=== PATIENT | female | born 1955 | race African-American/Black ===

== ENCOUNTER 2018-10-13 23:48 | Emergency (ER) | payer MEDICAID, SELFPAY ==
[2018-10-13 23:48] VITALS: BP 158/135; PULSE 82; RESP 16; TEMP 36.7; O2SAT 93; BMI 51.2
--- NOTE | 2018-10-14 00:23 | ED.VISSUMM ---
- ER Visit Summary Date of Service: 10/14/18 Chief Complaint: Mild bilateral feet swelling History of Present Illness: The patient is a 62 F history of hypertension on blood pressure medication. States she has had mild swelling in both feet for approximately a week. No falls or trauma. No prior history other than she is supposed to be wearing compressive lower extremity stockings which she states she only wears occasionally. She denies any chest pain or shortness of breath. Physical Examination: Well-appearing older female. Vital signs are stable. Her initial blood pressure is 150/35 however when I am in the room her pressure is 145/98. Pulse ox 93% on room air no signs of hypoxia. HEENT exam unremarkable. Neck nontender no JVD. Lungs clear to auscultation bilaterally. Heart regular rate and rhythm rate about 80 no murmur. Abdomen obese but soft nontender. Normal bowel sounds no peritoneal signs. Patient is moving all 4 extremities. Neurovascular intact. She has trace minimal edema both feet. Dorsi and plantar flexion intact. Normal motor strength both upper and lower extremities. Back nontender. Neurologically she is awake alert with no focal motor deficits. Test Results: BMP shows renal insufficiency with a BUN of 24 creatinine 2.08. I do not have any old labs available for comparison. I did go over this with the patient and family and informed her she needs follow-up with her primary care physician and have her renal function rechecked. Emergency Department Course and Treatment: Patient's exam is unremarkable other than minimal trace edema to both feet. P exam she is doing well at 01 34. A states she has trouble walking at home due to the swelling in her feet and we will see if a postop shoe will help her. Treatment Plan: Continue her compression stockings. Follow-up with her primary care physician Dr. Muhammad for repeat evaluation of her renal function. Disposition: Discharge Impression: Bilateral feet edema Renal insufficiency with a creatinine of 2.08 History of chronic hypertension This note was generated with [employer] dictation software. It may contain incorrect words, spelling, and punctuation that were not noted in review of the chart prior to signing ED Disposition - Plan for ED Patient: Referrals: Atif Muhammad MD [Primary Care Provider] -
[2018-10-14 00:43] LABS: Anion Gap 6 (5-15); BUN 24 mg/dL (7-18); BUN/Creat Ratio 11.5 RATIO (10-20); Calcium,Total 9.3 mg/dL (8.5-10.1); Chloride 103 mmol/L (98-107); Creatinine, Serum 2.08 mg/dL (0.55-1.02); EST Glomerular Filtration Rate 26 mL/min (>60); Est Glom Filt Rate - Afr Amer 31 mL/min (>60); Estimated Creatinine Clearance 27.27 ml/min; Glucose 99 mg/dL (74-106); Potassium 3.8 mmol/L (3.5-5.1); Sodium Level 138 mmol/L (136-145)
--- NOTE | 2018-10-14 01:39 | ED.DEP ---
ED Disposition - Plan for ED Patient: Disposition: Home or Assisted Living Referrals: Atif Muhammad MD [Primary Care Provider] - As soon as possible Additional Instructions: The swelling in your feet may be caused by venous insufficiency therefore you need to use her compression stockings. It may also be caused by renal insufficiency whereby your kidney function is not normal. She will need to have this rechecked and follow-up with Dr. Muhammad for that.
[2018-10-14 02:01] VITALS: BP 148/100; PULSE 90; RESP 16; O2SAT 94
== END 2018-10-14 02:02 | disposition home or self-care (01) ==
PROVIDERS: Emergency Provider Emergency Medicine; Family Provider Family Medicine; PCP Family Medicine
DX: R60.0 Localized edema (principal); N28.9 Disorder of kidney and ureter, unspecified; I10 Essential (primary) hypertension; Z79.899 Other long term (current) drug therapy; Z87.891 Personal history of nicotine dependence
CPT/HCPCS: 80048; 99285; A4216

== ENCOUNTER → 2018-10-25 13:52 | Outpatient (CLI) | payer MEDICAID, SELFPAY ==
[2018-10-16 10:03] VITALS: BMI 51.2
--- NOTE | 2018-10-25 13:54 | ART_ITS ---
Reason For Study: Intermittent Claudication Procedure A bilateral lower extremity continuous wave Doppler with analog waveform analysis and ankle brachial indexes. Left Segmental Pressures Left brachial= 166mmHg. Left posterior tibial artery = 168mmHg. Left dorsalis pedis artery = 160mmHg. Left digit = 100 mmHg. Right Segmental Pressures Right brachial= 154mmHg. Right posterior tibial artery = 171mmHg. Right dorsalis pedis artery = 162mmHg. Right digit = 148 mmHg. Indices The right ankle brachial index by the posterior tibial artery is 1.03. The right ankle brachial index by the dorsalis pedis is 0.98. The right digital-brachial index is 0.89. The left ankle brachial index by the posterior tibial artery is 1.01. The left ankle brachial index by the dorsalis pedis is 0.96. The left digital-brachial index is 0.60. Interpretation Summary 1. Bilateral no significant occlussive disease at rest with MARY 1.03/1.01. Ordering Physician: Jd Mariano Referring Physician: Jd Mariano Performed By: Zoya Santiago RDCS/RVT
== END ==
PROVIDERS: Family Provider Internal Medicine; PCP Internal Medicine; Referring Provider Nurse Practitioner Family; Visit Provider Nurse Practitioner Family
DX: I73.9 Peripheral vascular disease, unspecified (principal)
CPT/HCPCS: 93922; A4216; J2785

== ENCOUNTER → 2018-11-01 09:41 | Outpatient (CLI) | payer MEDICAID, SELFPAY ==
[2018-10-30 17:20] VITALS: BMI 51.2
--- NOTE | 2018-11-01 10:04 | EKG12_ITS ---
Test Reason : HYPERTENSON Blood Pressure : / mmHG Vent. Rate : 069 BPM Atrial Rate : 069 BPM P-R Int : 134 ms QRS Dur : 118 ms QT Int : 426 ms P-R-T Axes : 055 -47 012 degrees QTc Int : 456 ms Normal sinus rhythm Possible Left atrial enlargement Left axis deviation Non-specific intra-ventricular conduction delay Abnormal ECG Confirmed by JJ ZIEGLER, DEISY ([id number]), metropolitan editor LEO PAUL ([id number]) on 11/04/2018 9:25:28 AM Referred By: Harmony Velarde Confirmed By:DEISY GARDNER MD
[2018-11-01 11:10] LABS: Absolute Lymphocyte Count 1.62 X10^3/ul (0.83-4.51); Absolute Neutrophil Count 6.7 X10^3/uL (2.0-7.7); Basophil# 0.01 X10^3/uL; Basophil% 0.1 % (0-1); Eosinophil# 0.46 X10^3/uL; Eosinophils% 4.9 % (0-5); Hematocrit 36.6 % (37-47); Hemoglobin 11.3 g/dl (12.0-15.0); Lymphocyte # 1.62 X10^3/ul (4.0); Lymphocyte % 17.3 % (19-41); Mean Corp Hgb Conc 30.9 g/gl (32-36); Mean Corpuscular Hgb 27.9 pg (27.0-32.0); Mean Corpuscular Volume 90.4 fL (81-99); Mean Platelet Vol. 14.1 fl (6.2-12.0); Monocyte# 0.52 X10^3/uL; Monocyte% 5.5 % (0-10); Neutrophil # 6.74 X10^3/uL (2.7-7.7); Platelet Count 162 K/mm3 (150-450); RBC Distribution Width CV 14.7 % (11.6-14.6); RBC Distribution Width SD 48.2 fl (35.1-43.9); Red Blood Count 4.05 M/mm3 (4.2-5.4); White Blood Count 9.4 K/mm3 (4.4-11.0)
[2018-11-01 11:13] LABS: POSITIVE COUNT NO; POSITIVE DIFFERENTIAL NO; POSITIVE MORPHOLOGY NO
[2018-11-01 11:28] LABS: ALB/GLOB Ratio 0.8 RATIO (0.9-2.4); AST(SGOT) 15 U/L (15-37); Alanine Aminotransfer ALT/SGPT 14 U/L (13-56); Albumin, Serum 3.3 g/dL (3.2-5.0); Alkaline Phosphatase 95 U/L (45-117); Anion Gap 8 (5-15); BUN 43 mg/dL (7-18); BUN/Creat Ratio 21.7 RATIO (10-20); Calcium,Total 8.9 mg/dL (8.5-10.1); Chloride 102 mmol/L (98-107); Creatinine, Serum 1.98 mg/dL (0.55-1.02); EST Glomerular Filtration Rate 27 mL/min (>60); Est Glom Filt Rate - Afr Amer 33 mL/min (>60); Globulin 4.4 g/dL (2.2-4.2); Glucose 103 mg/dL (74-106); Potassium 3.1 mmol/L (3.5-5.1); Protein, Total 7.7 g/dL (6.4-8.2); Sodium Level 139 mmol/L (136-145)
[2018-11-01 11:45] LABS: Hemoglobin A1c 6.6 % (4.2-6.3)
== END ==
PROVIDERS: Family Provider Internal Medicine; PCP Internal Medicine; Referring Provider Internal Medicine; Visit Provider Internal Medicine
DX: I10 Essential (primary) hypertension (principal); R73.03 Prediabetes
CPT/HCPCS: 36415; 80053; 83036; 85025; 93005

== ENCOUNTER → 2018-11-04 08:58 | Outpatient (CLI) | payer MEDICAID, SELFPAY ==
[2018-10-30 17:20] VITALS: BMI 51.2
[2018-11-04 10:24] LABS: Cholesterol 161 mg/dL (200); High Density Lipoprotein 48 mg/dL; Triglycerides 100 mg/dL; Very Low Density Lipoprotein 20 mg/dL (5-40)
== END ==
PROVIDERS: Family Provider Internal Medicine; PCP Internal Medicine; Referring Provider Internal Medicine; Visit Provider Internal Medicine
DX: I10 Essential (primary) hypertension (principal)
CPT/HCPCS: 36415; 80061

== ENCOUNTER → 2018-12-03 | Outpatient (CLI) | payer MEDICAID, SELFPAY ==
[2018-12-03 09:44] VITALS: BMI 50.3
[2018-12-03 13:04] LABS: Anion Gap 9 (5-15); BUN 29 mg/dL (7-18); BUN/Creat Ratio 16.2 RATIO (10-20); Calcium,Total 9.1 mg/dL (8.5-10.1); Chloride 103 mmol/L (98-107); Creatinine, Serum 1.79 mg/dL (0.55-1.02); EST Glomerular Filtration Rate 30 mL/min (>60); Est Glom Filt Rate - Afr Amer 37 mL/min (>60); Glucose 103 mg/dL (74-106); Potassium 3.8 mmol/L (3.5-5.1); Sodium Level 141 mmol/L (136-145)
[2018-12-04 12:47] LABS: Microalbumin:Creatinine Ratio 107.2 mg/g CRE (<30 mg/g CRE)
== END | disposition home or self-care (01) ==
LOC: BIMLAB 10:09
PROVIDERS: Family Provider Internal Medicine; PCP Internal Medicine; Visit Provider Internal Medicine
DX: I10 Essential (primary) hypertension (principal); E11.9 Type 2 diabetes mellitus without complications
CPT/HCPCS: 36415; 80048; 82043; 82570

== ENCOUNTER → 2018-12-12 | Outpatient (CLI) | payer MEDICAID, SELFPAY ==
[2018-12-03 09:44] VITALS: BMI 50.3
== END | disposition home or self-care (01) ==
LOC: SL 12-13 07:39
PROVIDERS: Family Provider Internal Medicine; PCP Internal Medicine; Referring Provider Internal Medicine; Visit Provider Internal Medicine
DX: G47.30 Sleep apnea, unspecified (principal)
CPT/HCPCS: 98960; G0463

== ENCOUNTER → 2019-04-07 20:00 | Outpatient (CLI) | payer MEDICAID, SELFPAY ==
[2019-02-26 07:48] VITALS: BMI 51.8
== END ==
PROVIDERS: Family Provider Internal Medicine; PCP Internal Medicine; Referring Provider Internal Medicine Critical Care Medicine; Visit Provider Internal Medicine Critical Care Medicine
DX: G47.33 Obstructive sleep apnea (adult) (pediatric) (principal)
CPT/HCPCS: 95811

== ENCOUNTER → 2019-04-28 11:50 | Outpatient (CLI) | payer MEDICAID, SELFPAY ==
[2019-04-25 14:56] VITALS: BMI 51.8
[2019-04-28 12:17] LABS: Absolute Lymphocyte Count 1.69 X10^3/uL (0.83-4.51); Absolute Neutrophil Count 5.9 X10^3/uL (2.0-7.7); Basophil# 0.03 X10^3/uL; Basophil% 0.3 % (0-1); Eosinophil# 0.42 X10^3/uL; Eosinophils% 4.7 % (0-5); Hematocrit 39.5 % (37-47); Hemoglobin 12.1 g/dL (12.0-15.0); Lymphocyte # 1.69 X10^3/ul (4.0); Lymphocyte % 18.9 % (19-41); Mean Corp Hgb Conc 30.6 g/dL (32-36); Mean Corpuscular Hgb 28.7 pg (27.0-32.0); Mean Corpuscular Volume 93.6 fL (81-99); Mean Platelet Vol. 13.8 fl (6.2-12.0); Monocyte# 0.84 X10^3/uL; Monocyte% 9.4 % (0-10); NRBC Flagged by Analyzer 0 % (0-5); Neutrophil # 5.93 X10^3/uL (2.7-7.7); Neutrophil % 66.3 % (47-70); POSITIVE MORPHOLOGY YES; Platelet Count 171 K/mm3 (150-450); RBC Distribution Width CV 14.1 % (11.6-14.6); Red Blood Count 4.22 M/mm3 (4.2-5.4)
[2019-04-28 12:18] LABS: Differential Indicated SCAN CRITERIA MET
[2019-04-28 12:41] LABS: Anion Gap 6 (5-15); BUN 29 mg/dL (7-18); BUN/Creat Ratio 18.6 RATIO (10-20); Calcium,Total 9.7 mg/dL (8.5-10.1); Chloride 102 mmol/L (98-107); Creatinine, Serum 1.56 mg/dL (0.55-1.02); EST Glomerular Filtration Rate 36 mL/min (>60); Est Glom Filt Rate - Afr Amer 43 mL/min (>60); Glucose 91 mg/dL (74-106); Potassium 3.7 mmol/L (3.5-5.1); Sodium Level 140 mmol/L (136-145)
[2019-04-28 12:50] LABS: BNP,B-Type NATRIURETIC PEPTIDE 26.3 pg/mL (0-100)
[2019-05-01 05:06] LABS: Alternaria alternata <0.10 kU/L (Class 0); Bermuda Grass <0.10 kU/L (Class 0); Bluegrass, Kentucky <0.10 kU/L (Class 0); Cat Hair/Dander, Standard <0.10 kU/L (Class 0); D pteronyssinus 0.28 kU/L (Class 0/I); Dog Epithelia <0.10 kU/L (Class 0); Elm, American White <0.10 kU/L (Class 0); Oak, White <0.10 kU/L (Class 0); Plantain, English <0.10 kU/L (Class 0); Ragweed, Short/Common <0.10 kU/L (Class 0)
[2019-05-01 20:07] LABS: Aspirgillus flavus Negative (Neg:<1:1); Aspirgillus fumigatus Negative (Neg:<1:1); Aspirgillus niger Negative (Neg:<1:1)
[2019-05-02 12:46] LABS: Immunoglobulin E 81 IU/mL (6-495)
[2019-05-02 13:12] LABS: Mouse Urine <0.10 kU/L (Class 0)
== END ==
PROVIDERS: Family Provider Internal Medicine; PCP Internal Medicine; Referring Provider Nurse Practitioner Acute Care; Visit Provider Nurse Practitioner Acute Care
DX: R06.2 Wheezing (principal)
CPT/HCPCS: 36415; 80048; 82785; 83880; 85025; 86003; 86606

== ENCOUNTER → 2019-05-13 09:40 | Outpatient (CLI) | payer MEDICAID, SELFPAY ==
[2019-02-26 07:48] VITALS: BMI 51.8
[2019-04-30 14:12] VITALS: BMI 51.8
--- NOTE | 2019-05-13 13:57 | PFTCOMP ---
COMPLETE PULMONARY FUNCTION TEST INTERPRETATION Brief HPI: Patient is a 63 year old -[place] female, currently under the care of myself, who presents to [facility] for complete pulmonary function tests secondary to diagnosis of dyspnea. Respiratory therapist reports good effort and reproducible results. Interpretation: Forced expiration spirometry shows a moderate large airways obstructive ventilatory defect with an FEV1 of 77% predicted. There is a significant bronchodilator response in FEV1 by strict ATS criteria. Spirograms are of good quality and plateau slowly, indicating slowly emptying areas of the lungs. The respiratory flow volume loop shows decreased expiratory flow rates at all lung volumes consistent with airway obstruction. Lung volumes by body plethysmography show a normal total lung capacity at 5.05 L, 92% predicted. FRC and RV are elevated out of proportion. Lung volume measurements are consistent with air-trapping. Diffusion capacity by carbon monoxide is at the lower limit of normal at 76% predicted. The airway resistance is elevated. No previous pulmonary function tests were available for review. Impression: Fully reversible moderate large airways obstructive ventilatory defect resulting in air trapping. Cannot exclude an component of concomitant COPD
== END ==
PROVIDERS: Family Provider Internal Medicine; PCP Internal Medicine; Referring Provider Internal Medicine Critical Care Medicine; Visit Provider Internal Medicine Critical Care Medicine
DX: R06.09 Other forms of dyspnea (principal)
CPT/HCPCS: 94060; 94726; 94729

== ENCOUNTER 2019-07-10 14:28 | Outpatient (RCR) | payer MEDICAID, SELFPAY ==
[2019-06-06 13:01] VITALS: BMI 52.6
== END 2019-07-10 23:59 | disposition home or self-care (01) ==
LOC: DC 14:28
PROVIDERS: Family Provider Internal Medicine; PCP Internal Medicine; Visit Provider Internal Medicine
DX: Z71.3 Dietary counseling and surveillance (principal); E11.9 Type 2 diabetes mellitus without complications; E66.01 Morbid (severe) obesity due to excess calories; Z68.43 Body mass index [BMI] 50.0-59.9, adult
CPT/HCPCS: G0108

== ENCOUNTER → 2019-11-19 13:07 | Outpatient (CLI) | payer MEDICAID, SELFPAY ==
[2019-11-19 10:33] VITALS: BMI 52.6
[2019-11-19 13:39] LABS: Absolute Lymphocyte Count 1.19 X10^3/uL (0.83-4.51); Absolute Neutrophil Count 5.5 X10^3/uL (2.0-7.7); Basophil# 0.03 X10^3/uL; Basophil% 0.4 % (0-1); Eosinophil# 0.53 X10^3/uL; Eosinophils% 6.7 % (0-5); Hematocrit 38.5 % (37-47); Hemoglobin 11.9 g/dL (12.0-15.0); Lymphocyte # 1.19 X10^3/ul (4.0); Mean Corp Hgb Conc 30.9 g/dL (32-36); Mean Corpuscular Hgb 27.8 pg (27.0-32.0); Mean Platelet Vol. 13.9 fl (6.2-12.0); Monocyte# 0.67 X10^3/uL; Monocyte% 8.4 % (0-10); NRBC Flagged by Analyzer 0 % (0-5); Neutrophil # 5.48 X10^3/uL (2.7-7.7); Neutrophil % 69.1 % (47-70); Platelet Count 158 K/mm3 (150-450); RBC Distribution Width CV 14.7 % (11.6-14.6); RBC Distribution Width SD 48.7 fl (35.1-43.9); Red Blood Count 4.28 M/mm3 (4.2-5.4); White Blood Count 7.9 K/mm3 (4.4-11.0)
[2019-11-19 13:51] LABS: ALB/GLOB Ratio 0.7 RATIO (0.9-2.4); AST(SGOT) 15 U/L (15-37); Alanine Aminotransfer ALT/SGPT 17 U/L (13-56); Albumin, Serum 3.6 g/dL (3.2-5.0); Alkaline Phosphatase 84 U/L (45-117); Anion Gap 6 (5-15); BUN 25 mg/dL (7-18); BUN/Creat Ratio 15.6 RATIO (10-20); Calcium,Total 9.7 mg/dL (8.5-10.1); Chloride 101 mmol/L (98-107); EST Glomerular Filtration Rate 35 mL/min (>60); Est Glom Filt Rate - Afr Amer 42 mL/min (>60); Globulin 5.1 g/dL (2.2-4.2); Glucose 115 mg/dL (74-106); Potassium 3.3 mmol/L (3.5-5.1); Protein, Total 8.7 g/dL (6.4-8.2); Sodium Level 136 mmol/L (136-145)
== END ==
PROVIDERS: Nurse Practitioner Family; PCP Internal Medicine; Referring Provider Internal Medicine; Visit Provider Internal Medicine
DX: R60.0 Localized edema (principal); I10 Essential (primary) hypertension; E11.9 Type 2 diabetes mellitus without complications
CPT/HCPCS: 80053; 85025

== ENCOUNTER → 2020-03-04 14:49 | Outpatient (CLI) | payer MEDICAID, SELFPAY ==
[2020-02-12 13:08] VITALS: BMI 52.6
--- NOTE | 2020-03-04 14:50 | US_ITS ---
STUDY: SUPERFICIAL ULTRASOUND - REASON FOR EXAM: Female, 64 years old. LT GROIN PAIN AND SWELLING - CHRONIC TECHNIQUE: A superficial ultrasound was performed with real-time and static mhuammad-scale imaging. COMPARISON: None. FINDINGS: There is a 1.6 x 1.3 x 1.4 cm well-circumscribed predominantly hypoechoic round focus with what appears to be an echogenic mildly vascular hilum consistent with an enlarged lymph node. The enlarged lymph node appears to have lost its reniform shape. There are 2 additional prominent lymph nodes. US/Ext Non Vasc Limited/Soft Tiss IMPRESSION: Mildly enlarged inguinal lymph node measuring up to 1.6 x 1.3 x 1.4 cm associated with 2 additional prominent lymph nodes which all may be reactive although cannot entirely exclude a neoplastic process. Electronically Signed: Nita Arndt MD at 15:36 EDT Tel , Service support ,
== END ==
PROVIDERS: PCP Internal Medicine; Referring Provider Nurse Practitioner Family; Visit Provider Nurse Practitioner Family
DX: R10.32 Left lower quadrant pain (principal)
CPT/HCPCS: 76882

== ENCOUNTER → 2020-03-16 15:55 | Outpatient (CLI) | payer MEDICAID, SELFPAY ==
[2020-02-12 13:08] VITALS: BMI 52.6
--- NOTE | 2020-03-16 15:55 | CT_ITS ---
STUDY: CT PELVIS WITHOUT CONTRAST REASON FOR EXAM: Female, 64 years old. LT GROIN SWELLING, LT LOWER EXTREMITY EDEMA FOR MONTHS, PREV TUBAL LIGATION RADIATION DOSAGE (If Supplied By Facility): CTDIvol = ( 28.20 ) mGy, DLP = ( 1505.4 ) mGycm TECHNIQUE: Transaxial imaging of the pelvis was performed with oral contrast, and without intravenous administration of contrast material. Individualized dose optimization techniques were used for this CT. COMPARISON: None. FINDINGS: Uterus is enlarged for stated age and deviated towards the right depressing the dome of the bladder. Postsurgical change status post bilateral tubal ligation Normal visualized small intestine. Normal visualized colon. There is no pelvic fluid. There is no pelvic mass lesion or lymphadenopathy. Normal visualized pelvic arteries. There are multiple enlarged left inguinal nodes the largest measuring approximately 3.3 x 2.15 cm. Normal osseous structures. Incidental finding of a mass in left lower quadrant demonstrating rim calcification not visualized in its entirety measuring approximately 7.[address]/Pelvis without IV Contrast IMPRESSION: Left inguinal adenopathy of uncertain etiology. Incidental finding of rim calcified mass in left lower quadrant of uncertain etiology. Recommend dedicated CT of the abdomen and pelvis for further evaluation Electronically Signed: Atif Hancock MD at 20:15 EDT , Service support ,
== END ==
PROVIDERS: PCP Internal Medicine; Referring Provider Internal Medicine; Visit Provider Internal Medicine
DX: R19.09 Other intra-abdominal and pelvic swelling, mass and lump (principal); M79.89 Other specified soft tissue disorders
CPT/HCPCS: 72192

== ENCOUNTER → 2020-03-18 12:58 | Outpatient (CLI) | payer MEDICAID, SELFPAY ==
[2020-02-12 13:08] VITALS: BMI 52.6
[2020-03-18 13:50] LABS: Protein, Urine (Random) 43.4 mg/dL (<11.9); Protein:Creat Ratio 342 mg/g CRE (0-200)
[2020-03-18 13:57] LABS: Anion Gap 6 (5-15); BUN 22 mg/dL (7-18); BUN/Creat Ratio 15.1 RATIO (10-20); Calcium,Total 9.7 mg/dL (8.5-10.1); Chloride 107 mmol/L (98-107); Creatinine, Serum 1.46 mg/dL (0.55-1.02); EST Glomerular Filtration Rate 38 mL/min (>60); Est Glom Filt Rate - Afr Amer 46 mL/min (>60); Glucose 112 mg/dL (74-106); Potassium 3.6 mmol/L (3.5-5.1); Sodium Level 140 mmol/L (136-145)
[2020-03-24 12:07] LABS: Complement C3 187 mg/dL (82-167); PROEL- A/G Ratio 0.8 (0.7-1.7); PROEL- Albumin 3.4 g/dL (2.9-4.4); PROEL- Alpha-1 Globulin 0.4 g/dL (0.0-0.4); PROEL- Alpha-2 Globulin 0.7 g/dL (0.4-1.0); PROEL- Beta Globulin 1.2 g/dL (0.7-1.3); PROEL- Gamma Globulin 1.8 g/dL (0.4-1.8); PROEL- Globulin, Total 4.1 g/dL (2.2-3.9); PROEL- TOTAL PROTEIN 7.5 g/dL (6.0-8.5)
[2020-10-14 12:52] LABS: Aldosterone, Serum 22.1 ng/dL (0.0-30.0)
[2020-10-14 12:53] LABS: Renin, Plasma 0.527 ng/mL/hr (0.167-5.380)
== END ==
PROVIDERS: PCP Internal Medicine; Referring Provider Internal Medicine Nephrology; Visit Provider Internal Medicine Nephrology
DX: I12.9 Hypertensive chronic kidney disease with stage 1 through stage 4 chronic kidney disease, or unspecified chronic kidney disease (principal); N18.3 Chronic kidney disease, stage 3 (moderate)
CPT/HCPCS: 36415; 80048; 82088; 82570; 84156; 84165; 84244; 86160

== ENCOUNTER → 2020-03-29 15:29 | Outpatient (CLI) | payer MEDICAID, SELFPAY ==
[2020-02-12 13:08] VITALS: BMI 52.6
--- NOTE | 2020-03-29 15:29 | CT_ITS ---
STUDY: CT ABDOMEN AND PELVIS WITHOUT CONTRAST REASON FOR EXAM: Female, 64 years old. PT STATED ABNORMAL PELVIC CT F/U RADIATION DOSAGE (If Supplied By Facility): CTDIvol = ( 17.58 ) mGy, DLP = ( 981.25 ) mGycm TECHNIQUE: Transaxial images were obtained from the dome of the diaphragm to the symphysis pubis without oral contrast, and without intravenous contrast. Sagittal and coronal images were reconstructed. Individualized dose optimization techniques were used for this CT. COMPARISON: None. FINDINGS: The visualized lung bases are unremarkable. The visualized portions of the heart are within normal limits. Para-aortic adenopathy along the descending thoracic aorta. There is a diffuse contour abnormality of the liver consistent with cirrhotic changes. Cholelithiasis with wall thickening of the gallbladder and extrahepatic biliary system. Normal spleen. Normal pancreas. There is a 7.1 x 8.0 cm mass with calcified rim within the left mid abdominal mesentery. [place] of multiple left upper quadrant mesenteric nodules is also noted. Normal bilateral adrenal glands. Bilateral renal cysts and hyperdense cysts. Hiatal hernia. Normal small intestine. Normal colon. The appendix is not visualized. Calcified abdominal aorta. Normal inferior vena cava. There is adenopathy in the retroperitoneum. There are omental nodule lesions up to 3.4 cm likely related to metastasis. Mild gastrohepatic adenopathy. Normal urinary bladder. Bilateral inguinal adenopathy, left more than right. Bilateral tubal ligation clips. Questionable left adnexal 5.3 x 4.2 cm mass versus a prominent ovary. Left iliac adenopathy cannot be excluded. Evaluation is limited without contrast. Normal abdominal wall. Normal osseous structures. CT/Abdomen/Pelvis without Cont IMPRESSION: Hiatal hernia. Bilateral renal cystic lesions. There is para-aortic, gastrohepatic, mesenteric, and retroperitoneal adenopathy. There is also left inguinal and possibly left iliac adenopathy. Omental nodules are noted. Left adnexal lesion cannot be excluded. Large left mesenteric mass is noted with a calcified rim. Cholelithiasis. Possible gallbladder wall thickening. Electronically Signed: Coleman Bañuelos DO at 23:49 EDT Tel [phone], Service support ,
== END ==
PROVIDERS: PCP Internal Medicine; Referring Provider Internal Medicine; Visit Provider Internal Medicine
DX: R93.5 Abnormal findings on diagnostic imaging of other abdominal regions, including retroperitoneum (principal); R19.04 Left lower quadrant abdominal swelling, mass and lump
CPT/HCPCS: 74176

== ENCOUNTER 2020-03-30 10:30 | Outpatient (RCR) | payer MEDICAID, SELFPAY ==
[2020-02-12 13:08] VITALS: BMI 52.6
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
--- NOTE | 2020-03-30 11:18 | HP.PTREVAL_ITS ---
Dr. Harmony Velarde MD, It has been my pleasure to treat QUENTIN ALEXANDRE over the last 6 visits for L shoulder pain. Please see the progress note below for an update on the physical therapy plan of care! Subjective: Sometimes the shoulder is nagging but today the shoulder is a 3- 4/10. Her L shoulder tightens up when it starts to rain. She feels that PT is helping cause she can move her arm better after PT. She can not lay on her L shoulder. She feels better after she does her exercises. She has a possible mass that she is having CatScans for it. Objective/Function: Improved ROM.... L shoulder AROM: L shoulder flex 120. L shoulder abd 110. L shoulder ER 40. L shoulder IR FULL. L shoulder MMT: Flex 4-/5, abd 3+/5, IR/ER 4-/5 Plan Plan: Continue 2X/ week for 4 weeks for L shoulder PROM, AAROM, AROM, postural and scapular strength, RC strength with HEP and modalities as needed. Goals Goal 1:: I HEP Goal Time Frame: 4-6 Weeks Goal Progress: Goal Met Goal 2:: Increase L shoulder AROM to egual that of the Right (L shoulder AROM: flex approx 120 degrees, abd approx 80 degrees, IR approx L5, ER approx 40 degrees. R shoulder AROM flexion approx 170 degrees, abd approx 150 degrees, IR to L1, Er aprrox 50 degrees) Goal Time Frame: 4-6 Weeks Goal Progress: Progressing Goal 3:: Increase L shoulder strength by 1/2 muscle grade ( at time of eval L shld MMT: Flex 4-/5, abd 3+/5, IR/ER 4-/5) Goal Time Frame: 4-6 Weeks Goal Progress: Progressing Goal 4:: Be able to lay on the L shoulder and reach across her body without having L shoulder sharp pain Goal Time Frame: 4-6 Weeks Anticipated Interventions Patient/Client Instruction: Educate patient on: Condition, Plan of Care For the Purpose of:: To decrease pain, To decrease swelling/inflammation, To increase ROM, To improve nutrient delivery to tissue, To improve muscle performance and motor function, To improve ability to perform ADL's, To increase tolerance to activity/condition/position, To improve performance and independence with ADL's, To decrease level of supervision to perform tasks, To improve ability of physical actions for home/community/work/leisure, To improve health of tissue, To increase flexibility/ROM Therapeutic Exercise to Include: Strength training, Postural training, Flexibilty training, Passive ROM, Active ROM, Scapular Strength/Stabilization For the Purpose of:: To decrease pain, To increase ROM, To improve nutrient delivery to tissue, To improve muscle performance and motor function, To improve ability to perform ADL's, To increase tolerance to activity/condition/position, To improve performance and independence with ADL's, To improve ability of physical actions for home/community/work/leisure, To improve health of tissue, To decrease soft tissue restriction, To increase flexibility/ROM Manual Therapy Techniques to Include: Passive ROM For the Purpose of:: To increase ROM Ultrasound (thermal/non thermal): Yes For the Purpose of:: To decrease pain, To decrease swelling/inflammation, To improve nutrient delivery to tissue Please do not hesitate to contact me at [phone] by phone or if you have questions or concerns regarding this new plan of care! Sincerely, Sanjana Catherine, MPT
--- NOTE | 2020-05-19 13:16 | HP.PT.NRP ---
QUENTIN ALEXANDRE was seen in my office for initial evaluation on 02/18/20. The following Plan of Care was established for this patient: Initial Frequency: 2x /Week Initial Duration: 6 Weeks Patient/Client Instruction: Educate patient on: Condition, Plan of Care For the Purpose of:: To decrease pain, To decrease swelling/inflammation, To increase ROM, To improve nutrient delivery to tissue, To improve muscle performance and motor function, To improve ability to perform ADL's, To increase tolerance to activity/condition/position, To improve performance and independence with ADL's, To decrease level of supervision to perform tasks, To improve ability of physical actions for home/community/work/leisure, To improve health of tissue, To increase flexibility/ROM Therapeutic Exercise to Include: Strength training, Postural training, Flexibilty training, Passive ROM, Active ROM, Scapular Strength/Stabilization For the Purpose of:: To decrease pain, To increase ROM, To improve nutrient delivery to tissue, To improve muscle performance and motor function, To improve ability to perform ADL's, To increase tolerance to activity/condition/position, To improve performance and independence with ADL's, To improve ability of physical actions for home/community/work/leisure, To improve health of tissue, To decrease soft tissue restriction, To increase flexibility/ROM Manual Therapy Techniques to Include: Passive ROM For the Purpose of:: To increase ROM Ultrasound (thermal/non thermal): Yes For the Purpose of:: To decrease pain, To decrease swelling/inflammation, To improve nutrient delivery to tissue This patient was last seen in our office 03/30/20. Pertinent comments regarding their Physical therapy will appear below: Pt has missed several appointments and never rescheduled. She will be discharged At this point I will be discontinuing this patient from physical therapy. I would be happy to see this patient again in the future if found appropriate by the physician. Thank you! Sanjana Catherine, MPT
== END 2020-03-30 19:00 | disposition home or self-care (01) ==
LOC: PT 10:30
PROVIDERS: PCP Internal Medicine; Referring Provider Internal Medicine; Visit Provider Internal Medicine
DX: M25.512 Pain in left shoulder (principal); M75.82 Other shoulder lesions, left shoulder
CPT/HCPCS: 97110; 97161; 97530

== ENCOUNTER → 2020-04-13 08:06 | Outpatient (CLI) | payer MEDICAID, SELFPAY ==
[2020-04-07 11:31] VITALS: BMI 53.7
[2020-04-13] VITALS (10 sets, daily range): BP systolic 148–189; BP diastolic 37–91; PULSE 71–75; RESP 18; TEMP 36.8–37; O2SAT 96–99; BMI 45.6
--- NOTE | 2020-04-13 | IMM_PTH ---
PATIENT: QUENTIN ALEXANDRE LOC: CT U#:[id number] AGE/SX: 69/F ROOM: RE04/13/[address]: Dr. David Corral MD : 1955 BED: DIS: SPEC #: [id number] RECD: 04/14/20 12:10 STATUS: VENKATA REQ #: [id number] [place]: 04/13/20 00:[address]: David Corral DEPT: IMMUNOHISTOCHEMISTRY RECD BY: Val Lerner ENTERED: 04/14/20 12:12 SP TYPE: IMMUNO OTHR DR: Dr. Harmony Velarde MD Tissues: Abdomen, NOS Procedures: RCC (add) MSH2 (add) MLH-1 (add) MSH6 (add) Anti-PMS2 (add) NAPSIN A (add) CA-125 (add) CEA (add) CK20 (add) CK5-6 (add) CK7 (add) CK8 (add) HEP PAR (add) KI-67 (add) P53 (add) FL (add) TTF1 (add) Pankeratin (add) P40 (add) ER (initial) PHYSICIAN & INSTITUTION [place] [id number] SPECIMEN INFORMATION: Tissue Source: Abdominal mass Clinical Info: Abdominal mass Specimen Number: [id number] CPT code: 68414, 70914 x19 METHODOLOGY: Deparaffinized sections of prefer/formalin-fixed tissue or PAP/DQ stained slides are incubated with monoclonal/polyclonal antibodies/oligonucleotide probes. Localization is made via biotin free immunoperoxidase method. Appropriate controls are performed and reacted as expected. Results on target cell population are indicated in the following table: RESULTS: ANTIBODY / CLONE RESULT ER (6F11) positive FL (1E2) negative AE1-3 (AE1/AE3/PCK26) positive CK7 (OV-TL12/30) positive CK8 (42ebfkS33) positive CK20 (KS20.8) negative TTF-1 (8G7G3/1) negative Napsin A (Rabbit Polyclonal) negative HepPar (OCh1E5) negative RCC (PN-15) positive, focal CK5-6 (D5 & 1684) positive P40 (BC28) negative CEA (11-7/TF-3HB-1) positive, focal CA125 (OC125) positive These tests were developed and their performance characteristics determined by [facility]. They may not have been cleared or approved by the U.S. Food and Drug Administration. The FDA has determined that such clearance or approval is not necessary. The above immunohistochemical/dualISH markers are ordered and reviewed by the Pathologist. INTERPRETATION: Abdominal mass, CT-guided core biopsy: Metastatic poorly differentiated non-small cell carcinoma, consistent with clinical impression of ovarian primary. SJ:rg 04/15/20 Case has been reviewed in consultation with Dr. Harp who concurs with the above diagnosis. IDC:AM ADDENDUM ADDENDUM ADDENDUM ADDENDUM ADDENDUM ADDENDUM ADDENDUM ADDENDUM ADDENDUM ADDENDUM ADDENDUM ADDENDUM ADDENDUM ADDENDUM 04/22/2020 09:45 ADDENDUM 04/22/2020 09:45 ADDENDUM 04/22/2020 09:45 ADDENDUM 04/22/2020 09:45 ADDENDUM 04/22/2020 09:45 ANTIBODY / CLONE RESULT Ki-67 (30-9) positive, moderate P53 (DO-7) positive MLH-1 (M1) positive MSH2 (25D12) positive MSH6 (44) positive PMS2 (AQK1677) positive Abdominal mass, CT-guided core biopsy: Result of Microsatellite Instability Study: Negative (no loss of mismatch protein; no microsatellite instability detected). SJ:polina 04/22/20
--- NOTE | 2020-04-13 | ASPIGT_PTH ---
PATIENT: QUENTIN ALEXANDRE LOC: [place] U#:[id number] AGE/SX: 69/F ROOM: RE04/13/[address]: Dr. David Corral MD : 1955 BED: DIS: SPEC #: [id number] RECD: 04/13/20 10:00 STATUS: VENKATA WEIRMaureen #: [id number] [place]: 04/13/20 00:[address]: David Corral DEPT: SURGICAL PATHOLOGY RECD BY: Chinedu Montana ENTERED: 04/13/20 10:14 SP TYPE: ASP RAD OTHR DR: Dr. Harmony Velarde MD Tissues: Abdominal wall, NOS Procedures: FNA Specimen Adequacy Special Stain Group II Surgery Specimen Level IV Imprint (control) HEADER OPERATION: CT-guided abdominal mass biopsy PRE-OP DIAGNOSIS: Abdominal mass TISSUE SUBMITTED: Abdominal mass 18 gauge x5 MICROSCOPIC DIAGNOSIS Abdominal mass, CT-guided core biopsy: Metastatic poorly differentiated non-small cell carcinoma, consistent with clinical impression of ovarian primary. See comment. BANDAR:polina 04/14/20 COMMENT The specimen is evaluated at the time of biopsy by Dr. Garvin. Immediate Evaluation = Malignant cells present derived from non-small cell carcinoma. Immunohistochemistry ([id number]) supports the above diagnosis. Correlation with clinical, radiologic findings and appropriate follow up are necessary. Case has been reviewed in consultation with Dr. Harp who concurs with the above diagnosis. IDC:AM MICROSCOPIC DESCRIPTION Slides are reviewed. GROSS DESCRIPTION Received in fixative is one container labeled with the patient's name and designated abdominal mass. The specimen consists of multiple irregular fragments of rich soft tissue that in aggregate measure 1.5 x 0.1 x 0.1 cm. The specimen is totally submitted in one cassette. Two touch imprints are prepared at the time of core biopsy. / BANDAR:polina 04/13/20 TC:0 CPT: 57316, 22812
[2020-04-13 08:29] LABS: Absolute Lymphocyte Count 0.86 X10^3/uL (0.83-4.51); Absolute Neutrophil Count 9.7 X10^3/uL (2.0-7.7); Basophil# 0.03 X10^3/uL; Basophil% 0.3 % (0-1); Eosinophil# 0.06 X10^3/uL; Eosinophils% 0.5 % (0-5); Hematocrit 39.3 % (37-47); Hemoglobin 12.3 g/dL (12.0-15.0); Lymphocyte # 0.86 X10^3/ul (4.0); Lymphocyte % 7.3 % (19-41); Mean Corp Hgb Conc 31.3 g/dL (32-36); Mean Corpuscular Hgb 28.7 pg (27.0-32.0); Mean Corpuscular Volume 91.6 fL (81-99); Mean Platelet Vol. 13.5 fl (6.2-12.0); Monocyte% 9.3 % (0-10); NRBC Flagged by Analyzer 0 % (0-5); Neutrophil # 9.74 X10^3/uL (2.7-7.7); Neutrophil % 82.2 % (47-70); POSITIVE MORPHOLOGY YES; Platelet Count 213 K/mm3 (150-450); RBC Distribution Width CV 14.2 % (11.6-14.6); RBC Distribution Width SD 47.6 fl (35.1-43.9); Red Blood Count 4.29 M/mm3 (4.2-5.4); White Blood Count 11.8 K/mm3 (4.4-11.0)
[2020-04-13 08:35] LABS: International Normalized Ratio 1.1; Partial Thromboplast Time 23.8 Seconds (24.1-36.2); Prothrombin Time (Protime)PT. 13.9 SECONDS (11.7-14.9)
[2020-04-13 08:44] LABS: ALB/GLOB Ratio 0.6 RATIO (0.9-2.4); AST(SGOT) 14 U/L (15-37); Alanine Aminotransfer ALT/SGPT 15 U/L (13-56); Albumin, Serum 3.4 g/dL (3.2-5.0); Alkaline Phosphatase 74 U/L (45-117); Anion Gap 5 (5-15); BUN 23 mg/dL (7-18); BUN/Creat Ratio 13.9 RATIO (10-20); Calcium,Total 10.1 mg/dL (8.5-10.1); Chloride 103 mmol/L (98-107); Creatinine, Serum 1.65 mg/dL (0.55-1.02); EST Glomerular Filtration Rate 33 mL/min (>60); Est Glom Filt Rate - Afr Amer 40 mL/min (>60); Globulin 5.5 g/dL (2.2-4.2); Glucose 142 mg/dL (74-106); LDH 227 U/L (84-246); Potassium 3.9 mmol/L (3.5-5.1); Protein, Total 8.9 g/dL (6.4-8.2); Sodium Level 137 mmol/L (136-145); Uric Acid 9.1 mg/dL (2.6-6.0)
--- NOTE | 2020-04-13 09:01 | CT_ITS ---
STUDY: CT CHEST WITH CONTRAST REASON FOR EXAM: Female, 64 years old. STAGING FOR POSSIBLE OVARIAN CA RADIATION DOSAGE (If Supplied By Facility): CTDIvol = ( 19.11 ) mGy, DLP = ( 681.43 ) mGycm TECHNIQUE: Transaxial imaging was performed following intravenous administration of IV 100ML ISOVUE 300. Multiplanar coronal and sagittal images were reformatted. Individualized dose optimization techniques were used for this CT. COMPARISON: Comparison is made with prior examination dated 11/09/2010. FINDINGS: Mild wedging is enlargement of the right lobe of the thyroid gland. The lungs are normal. There is no demonstrated pleural abnormality. There is mild cardiac enlargement. Small pericardial effusion along the right lateral aspect of the pericardium. Normal mediastinum. Normal hilar regions. Normal enhanced pulmonary arteries. Normal aorta arch and descending thoracic aorta. There are multi-level degenerative changes of the thoracic spine. There is a 2 cm x 1.7 cm right adrenal nodule. Small cyst in the upper pole of the left kidney. CT/Chest WITH Contrast IMPRESSION: 2 cm x 1.7 cm nodule in the right adrenal gland. Electronically Signed: Tyler Badillo, at 10:21 EDT , Service support ,
[2020-04-13] MEDS: 0.9% Saline Lock 10 ML Syringe IV (09:06)
[2020-04-13 09:09] LABS: Differential Indicated SCAN CRITERIA MET
[2020-04-13 09:11] LABS: Differential Comment SCANNED
--- NOTE | 2020-04-13 09:15 | CT_ITS ---
PROCEDURE: CT GUIDED biopsy of the anterior mesenteric mass. DATE: 04/13/2020 INDICATION: Female, 64 years old. Retroperitoneal and mesenteric masses. PHYSICIAN: Tyler Badillo M.D. RADIATION DOSAGE (If Supplied By Facility): CTDIvol = ( 15 ) mGy, DLP = ( 379.7. ) mGycm. Individualized dose optimization techniques were utilized. PROCEDURE: The risks, benefits, and alternatives to the procedure were explained to the patient. The specific risk of hemorrhage requiring further treatment or intervention was detailed and accepted. Follow-up instructions were discussed with the patient as well. Written informed consent was obtained. The patient was brought into the CT suite and placed in the supine position. . An appropriate entry site was identified. The overlying skin was prepped and draped in the usual sterile fashion. 1% lidocaine was administered subcutaneously for local anesthesia. Conscious sedation was performed. The patient received 2 mg of VERSED and 50 mcg of FENTANYL intravenously. Conscious sedation was started and 9:23 AM and terminated at 9:36 AM. The patient was independently monitored by the department nurse. Under CT guidance, a total of 5 passes were performed utilizing 18-gauge core biopsy needle. The specimens were then placed in the appropriate fluid and transported to the laboratory for analysis. Hemostasis was obtained. The patient tolerated the procedure well without immediate complications. CT/Biopsy/Inj or Needle Placement IMPRESSION: Successful CT guided biopsy of the anterior mesenteric mass, as described above. Electronically Signed: Tyler Badillo, at 10:06 EDT , Service support ,
[2020-04-13] MEDS: fentaNYL 100 MCG/2 ML Ampul IV (09:23)
[2020-04-13] MEDS: Midazolam 2 MG/2 ML Syringe IV (09:23)
== END ==
PROVIDERS: PCP Internal Medicine; Referring Provider Internal Medicine Medical Oncology; Visit Provider Internal Medicine Medical Oncology
DX: C79.89 Secondary malignant neoplasm of other specified sites (principal); C56.2 Malignant neoplasm of left ovary
CPT/HCPCS: 49180; 36415; 71260; 77012; 80053; 83615; 84550; 85025; 85610; 85730; 86304; 88172; 88305; 88313; 88341; 88342; J7040; Q9967

== ENCOUNTER 2020-04-14 13:11 | Emergency (ER) | payer MEDICAID, SELFPAY ==
[2020-04-13 08:41] VITALS: BMI 45.6
[2020-04-14 13:12] VITALS: BP 145/94; PULSE 95; RESP 16; TEMP 36.6; O2SAT 98; BMI 49.1
[2020-04-14] MEDS: Morphine 4 MG/ML Syringe IM (14:01)
--- NOTE | 2020-04-14 14:07 | RAD_ITS ---
STUDY: X-RAY CHEST REASON FOR EXAM: Female, 64 years old. ABDOMEN BIOPSY YESTERDAY. TODAY IS HAVING BACK SPASMS AND LEFT SHOULDER PAIN TECHNIQUE: Single AP portable view of the chest. COMPARISON: Comparison is made with prior study dated 07/06/2015. FINDINGS: Limited inspiratory effort. Mild increased markings at the lung bases more prominent on the left side suggestive of bibasilar atelectasis. There is mild cardiac enlargement. Normal mediastinum and nicole. Normal visualized pulmonary arteries. There is atherosclerotic tortuosity of the aortic arch and descending thoracic aorta. Normal visualized thoracic spine. Normal visualized ribs, clavicles, and shoulders. There is no demonstrated abnormality of the visualized soft tissue structures of the upper abdomen. RAD/Chest 1 View (Portable) IMPRESSION: Findings suggestive of bibasilar atelectasis more prominent on the left side. Electronically Signed: Tyler Badillo, at 14:31 EDT , Service support ,
--- NOTE | 2020-04-14 15:39 | ED.DCSUM_ITS ---
- ER Visit Summary Date of Service: 04/14/20 Chief Complaint: Back pain History of Present Illness: The patient is a 64 F who presents with back pain that became worse today. Patient had a biopsy performed yesterday on her abdomen for work-up of possible ovarian cancer. Patient denies any pain over the abdomen or biopsy site. Patient states her pain is over the left posterior thoracic area near her scapula. Patient states her pain is aching. Patient states her pain is worse with movement. Patient denies any trauma or injury. Patient denies any shortness of breath. Patient denies any cough. Physical Examination: Vital signs are stable. Patient is afebrile. Patient is in no acute distress. Oral mucosa is pink and moist. Neck is supple. Trachea is midline. There is no JVD. Heart was regular rate and rhythm. Lungs are clear and equal bilaterally. Abdomen is soft. Bowel sounds are normal. There is no tenderness. Cranial nerves II through XII are intact. There are no focal motor or sensory deficits noted. Musculoskeletal exam reveals reproducible tenderness over the left lower parascapular muscles. There is no bony crepitance or step-off. There is no deformity. There is some mild spasm of the parascapular muscles. Test Results: Portable chest x-ray was obtained. There is no acute process. This was interpreted by the radiologist and reviewed by myself. Emergency Department Course and Treatment: Patient was given injection of morphine. Patient was feeling better on reevaluation. Patient was instructed to use ice to the area. Patient was instructed to follow-up with her primary care physician in 5 to 7 days. Patient understood and was agreeable with the plan. All questions were answered. Disposition: Discharge home Impression: 1. Thoracic strain This note was generated with [employer] dictation software. It may contain incorrect words, spelling, and punctuation that were not noted in review of the chart prior to signing ED Disposition - Plan for ED Patient: Disposition: Home or Assisted Living Diagnosis: Thoracic myofascial strain Instructions: ED Spasm Back No Trauma Referrals: Harmony Velarde MD [Primary Care Provider] - 5-7 Days
== END 2020-04-14 16:30 | disposition home or self-care (01) ==
PROVIDERS: Emergency Provider Emergency Medicine; PCP Internal Medicine
DX: S29.012A Strain of muscle and tendon of back wall of thorax, initial encounter (principal); X58.XXXA Exposure to other specified factors, initial encounter; Y93.9 Activity, unspecified; Y92.9 Unspecified place or not applicable; I10 Essential (primary) hypertension; E66.9 Obesity, unspecified; Z79.899 Other long term (current) drug therapy; Z87.891 Personal history of nicotine dependence
CPT/HCPCS: 71045; 96372; 99282

== ENCOUNTER 2020-05-27 05:21 | Day surgery (SDC) | payer MEDICAID, SELFPAY ==
[2020-04-26 15:02] VITALS: BMI 51.4
--- NOTE | 2020-05-06 07:00 | HP_ITS ---
Intake Vital Signs 04/26/20 Height 5 ft 5.5 in 04/26/20 Weight: 314 lb 04/26/20 BMI 51.4 04/26/20 BP 123/72 H 04/26/20 Blood Pressure Location Rt brachial 04/26/20 Position Sitting 04/26/20 Respiration 16 04/26/20 BMI 52.4 Intake Visit Reasons: PORT PLACEMENT Chief Complaint: port placement Publicist Required: No Is patient in pain?: No Allergies povidone-iodine [From Betadine] Allergy (Verified 04/26/20 15:03) Rash soap [From Betadine] Allergy (Verified 04/26/20 15:03) Rash Medications lila.stocking,knee,reg,xlrg See Dose Instructions .ROUTE .MEDSUPPLY #2 ea 10/16/18 [Rx Confirmed 04/26/20] albuterol sulfate 90 mcg/actuation aerosol inhaler 2 puff INHALATION Q4H PRN #18 g 04/25/19 [Rx Confirmed 04/26/20] budesonide-formoterol HFA 160 mcg-4.5 mcg/actuation aerosol inhaler 2 puff INHALATION Q12H #10.2 g 05/20/19 [Rx Confirmed 04/26/20] hydrochlorothiazide 25 mg tablet 25 mg PO DAILY #90 tab 05/28/19 [Rx Confirmed 04/26/20] omeprazole 20 mg capsule,delayed release 20 mg PO DAILY #90 cap 05/29/19 [Rx Confirmed 04/26/20] nifedipine 90 mg tablet,extended release 90 mg PO DAILY #90 tab 09/25/19 [Rx Confirmed 04/26/20] bupropion HCl 150 mg tablet,12 hr sustained-release 150 mg PO BID #180 ea 10/14/19 [Rx Confirmed 04/26/20] metoprolol tartrate 100 mg tablet 100 mg PO BID #180 tab 10/14/19 [Rx Confirmed 04/26/20] fluticasone propionate 50 mcg/actuation nasal spray,suspension See Rx Instructions .ROUTE .COMPLEX #16 g 12/25/19 [Rx Confirmed 04/26/20] potassium chloride 20 mEq tablet,extended release 20 meq PO BID #180 tab 02/09/20 [Rx Confirmed 04/26/20] [facility] Medical History Chronic kidney disease, stage III (moderate) (Chronic) Obstructive sleep apnea (Chronic) Borderline type 2 diabetes mellitus (Chronic) Bilateral lower extremity edema (Chronic) GERD (gastroesophageal reflux disease) (Chronic) Hypertension (Chronic) Surgical History History of tubal ligation (Resolved) S/P tonsillectomy (Acute) Family History Grandmother Hypertension Diabetes Mother Diabetes Breast cancer Social History (Updated 04/26/20 @ 15:[address] Victor Manuel Hardy MD) Smoking Status: Former smoker how long ago did patient quit smokin03/2018 alcohol intake: current alcohol intake frequency: holidays/special occasions only substance use type: does not use frequency: does not exercise HPI HPI Surgical H&P: Yes HPI: QUENTIN ALEXANDRE, is a 64 F who presents to the office today for Evaluation for a PowerPort. 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 She will be starting chemotherapy this May 10 and a port is needed. ROS General General: No weight change, appetite, fatigue, colon cancer, breast cancer or weakness HEENT HEENT: No difficulty swallowing, eye injury, eye surgery, swollen glands or hoarseness Endo Endocrine: No thyroid disease, diabetes mellitus, thyroid cancer, Hair loss, heat intolerance or cold intolerance Skin Skin: No rash or changing moles Breast Breast: No left breast lump, right breast lump, nipple discharge, breast pain, abnormal mammogram, abnormal US or breast enlargement Musc Musculoskeletal: No back problems, arthritis, rheumatoid arthritis, gout or joint pain Cardio Cardiovascular: Yes high blood pressure; no murmur, pacemaker, heart disease, atrial fibrillation, heart attack, heart stent, palpitations, shortness of breat with exertion or chest pain Psych Psychiatric: No depression, anxiety or hearing voices Resp Respiratory: Yes shortness of breath, Yes sleep apnea, No cough, No COPD, Yes asthma, No emphysema, No wheezing Gastro Gastrointestinal: No abdominal pain, No nausea or vomiting, No diarrhea, No constipation, No blood in stool, No acid reflux, No hemorrhoids, No ulcers, No gallbladder problem, No black,tarry stools Sal Hematologic: No blood thinners, No blood disorders, No bleeding, No anemia, No blood clots Neuro Neurologic: No system reviewed and no additional complaints, except as docu, No as per HPI, No abnormal walking, No abnormal hearing, No abnormal movements, No abnormal speech, No behavioral changes, No burning sensations, No confusion, No seizure-like activity, No unsteadiness, No dizziness, No localized weakness, No frequent falls, No headache(s), No lack of coordination, No loss of vision, No memory loss, No numbness, No other visual disturbances, No radiating pain, No restless legs, No sensory deficit, No fainting, No tingling, No tremor(s), No weakness, No other Exam Const General: no acute distress, well developed, well hydrated Orientation: oriented to person, oriented to place, oriented to time [facility] Head: normocephalic, atraumatic Ears: external ears normal Mouth: moist mucous membranes Eyes Sclera: sclerae normal Pupils: normal by confrontation Neck Neck: no lymphadenopathy noted Neck mass: No Thyroid: thyroid normal, symmetrical Chest Chest palpation & inspection: normal inspection of the chest Breast Palpation: No nipple discharge Resp Effort & Inspection: normal respiratory effort Auscultation: clear to auscultation bilaterally Percussion: percussion normal Cardio Rate: regular rate Rhythm: regular rhythm Heart Sounds: no murmurs GI Palpation: soft, no hepatosplenomegaly, no masses, nontender Rectal Exam: other Other: Rectal exam deferred. Extrem General: normal to inspection, no clubbing, cyanosis or edema Assessment & Plan Problems 1. Vascular catheter fitting or adjustment Z45.2 Plan I have discussed above with the patient- Port-a-Cath placement. Patient has been counseled as to the risks/benefits of the procedure. I have explained the risks of the surgery, including but not limited to: infection, bleeding, injury to any blood vessels/nerves, injury to lungs (such as pneumothorax or hemothorax and need for chest tube), not having any access, nonfunctioning of port due to thrombosis, infection of port, etc. the patient understands and agrees to proceed. I have answered all the patient's questions to the patient?s satisfaction and the patient has no further questions. Coding Level of Care Code Off vis,new,level 3 Diagnoses Vascular catheter fitting or adjustment Z45.2 COVID (Procedure Consent) Procedure Criteria Procedure Criteria: Yes Elective The surgeon/proceduralist and patient have discussed in detail the risk of exposure to and/or potential harm posed by the COVID-19 virus with having a surgery/procedure at this time versus the risk of? delaying the surgery/procedure. It is not possible to know either the risk of delaying the surgery or procedure or chance of getting an infection with perfect accuracy, but a joint decision was made between the patient and the surgeon/proceduralist ?to proceed at this time with the scheduled surgery/procedure as indicated on the consent form. I have re-examined the patient. There are no clinical changes since date of exam.
--- NOTE | 2020-05-09 08:43 | NURSING ---
Notified Dr. Perry of patient's positive COVID result. Called patient at [phone] and notified of pt of positive COVID result. Pt reported having nausea yesterday but stated she feels fine today. Pt stated she will self quarantine and will call her primary doctor tomorrow.
[2020-05-25 11:15] VITALS: BMI 50.8
[2020-05-27] VITALS (8 sets, daily range): BP systolic 147–166; BP diastolic 83–89; PULSE 59–67; RESP 16–18; TEMP 36.2–36.7; O2SAT 98–100; BMI 50.8
[2020-05-27] MEDS: Lactated Ringers 1,000 ML 100 ML IV (06:09)
[2020-05-27] MEDS: Cefazolin 2 GM in 0.9% Normal Saline 100 ML IV (07:24)
--- NOTE | 2020-05-27 07:31 | PCM.OPRPT ---
Problem List (1) Vascular catheter fitting or adjustment Status: Acute Report of Operation Date of Procedure: 05/27/20 Pre-Operative Diagnosis: Vascular fitting and adjustment Post-Operative Diagnosis: Same Surgery/Procedure Performed:: Attempted insertion of a right IJ PowerPort Type of Anesthesia:: Local MAC Anesthesiologist: Kobi Bruner Estimated Blood Loss (mL): < 25 cc Description of Procedure: Patient was brought into the operating room. Placed in the supine position. Under MAC anesthetic I placed her in the headdown position ultrasound the neck to identify the internal jugular vein marked the neck and chest appropriately. Neck and chest were then sterilely prepped and draped in the usual fashion. Local was injected into the neck. During this process the patient started to cough I unfortunately had an arterial stick which I immediately removed and held pressure. During this process the patient started to vomit and we quickly aborted the procedure and got her sitting back up and more head up position and suctioning out her mouth. She was brought to the PACU she had complete neurologic function was phonating without difficulty. I am going to have to get her scheduled next week and this time we are going to have to intubate her. At the present time she has no symptoms of Covid disease and I believe that she is probably at his minimal risk if she is going to be for the intubation now. - Admit VTE Documentation VTE Present on Admission: No VTE Mechan Device Prophylaxis: SCD's VTE Pharm Prophylaxis ordered?: No Reason prophylaxis not ordered:: Treatment Not Indicated
--- NOTE | 2020-05-27 07:32 | DCINST_ITS ---
Discharge Diet: No Restrictions - Pain medication may cause nausea. You should typically eat light foods as you take your pain medication. Discharge Activity: May Shower - with the bandage in place 1-2 days after surgery. DO NOT SHOWER WHEN YOUR PORT IS ACCESSED. Additional Activity Instructions:: May not drive, work with heavy equipment, or sign legal documents for [address] if you are no longer taking narcotic pain medications. You may drive when you are no longer taking pain medications. Additional Dressing/Incision Instructions:: Leave the bandage on for 2-3 days. When you remove the bandage, leave the steri-strips intact until they fall off. Allergies/Adverse Reactions: Allergies povidone-iodine [From Betadine] Allergy (Verified 05/25/20 11:14) Rash soap [From Betadine] Allergy (Verified 05/25/20 11:14) Rash Medications to take at Discharge albuterol sulfate 90 mcg/actuation aerosol inhaler 2 puff INHALATION Q4H PRN #18 g 04/25/19 budesonide-formoterol HFA 160 mcg-4.5 mcg/actuation aerosol inhaler 2 puff INHALATION Q12H #10.2 g 05/20/19 nifedipine 90 mg tablet,extended release 90 mg PO DAILY #90 tab 09/25/19 potassium chloride 20 mEq tablet,extended release 20 meq PO BID #180 tab 02/09/20 Lidocaine/Prilocaine [Lidocaine-Prilocaine Cream] 1 applicatio TP DAILY PRN PRN 30 Days #1 tube 04/28/20 Ondansetron [Ondansetron Odt] 8 mg PO Q8H PRN PRN 10 Days #30 tab.rapdis 04/28/20 Prochlorperazine Maleate 10 mg PO Q6H PRN PRN 10 Days #30 tab 04/28/20 bupropion HCl 150 mg tablet,12 hr sustained-release 150 mg PO BID #180 ea 05/05/20 metoprolol tartrate 100 mg tablet 100 mg PO BID #180 tab 05/05/20 fluticasone propionate 50 mcg/actuation nasal spray,suspension See Rx Instructions .ROUTE .COMPLEX #16 g 05/25/20 hydrochlorothiazide 25 mg tablet 25 mg PO DAILY #90 tab 05/25/20 omeprazole 20 mg capsule,delayed release 20 mg PO DAILY #90 cap 05/25/20 Oxycodone HCl/Acetaminophen [Percocet 5/325] 1 - 2 tablet PO Q4H PRN PRN 6 Days #30 tablet 05/27/20 The following prescriptions were given: Oxycodone HCl/Acetaminophen [Percocet 5/325] 1 - 2 tablet PO Q4H PRN PRN 6 Days #30 tablet PRN Reason: Pain Transmission Status: Sent to [facility] Primary Care Physician: Harmony Velarde MD [Primary Care Provider] - Test Results: Test results from this visit will be discussed in further detail at your follow- up appointment, if applicable. Please Follow Up With: Victor Manuel Hardy MD - [phone] When: Please plan to follow up in 7 days in the office.
[2020-05-27] MEDS: Bupivacaine Mpf 0.5% 30 ML VIAL (08:00)
== END 2020-05-27 09:28 | disposition home or self-care (01) ==
LOC: SDC 05:21 → AC 05:21
PROVIDERS: Anesthesiology; PCP Internal Medicine; Referring Provider Surgery; Visit Provider Surgery
PROC: (CPT 36561; principal; 2020-05-27 07:15)
DX: Z45.2 Encounter for adjustment and management of vascular access device (principal); C56.2 Malignant neoplasm of left ovary; Z11.59 Encounter for screening for other viral diseases; I12.9 Hypertensive chronic kidney disease with stage 1 through stage 4 chronic kidney disease, or unspecified chronic kidney disease; N18.30 Chronic kidney disease, stage 3 unspecified; K21.9 Gastro-esophageal reflux disease without esophagitis; G47.30 Sleep apnea, unspecified; Z78.0 Asymptomatic menopausal state; Z79.899 Other long term (current) drug therapy; Z87.891 Personal history of nicotine dependence
CPT/HCPCS: 00532; 36561; 87635; C9803; J7120; C1788; J2405; U0003

== ENCOUNTER 2020-06-03 07:29 | Day surgery (SDC) | payer MEDICAID, SELFPAY ==
[2020-05-27 06:00] VITALS: BMI 50.8
[2020-06-03] VITALS (7 sets, daily range): BP systolic 147–179; BP diastolic 85–96; PULSE 65–78; RESP 16–18; TEMP 36–36.6; O2SAT 95–100; BMI 51.3
--- NOTE | 2020-06-03 07:58 | PCM.HP.BLA ---
History and Physical Date of Admission: 06/03/20 [facility] Medical Records Department [address] [place] [address] MR#: [id number] Acct: [id number] Name: QUENTIN ALEXANDRE Rep #: [id number] : 1955 64 From: Victor Manuel Hardy MD PCP: Dr. Harmony Velarde MD [place] [facility] [place] [address] Intake Vital Signs 04/26/20 Height 5 ft 5.5 in 04/26/20 Weight: 314 lb 04/26/20 BMI 51.4 04/26/20 BP 123/72 H 04/26/20 Blood Pressure Location Rt brachial 04/26/20 Position Sitting 04/26/20 Respiration 16 04/26/20 BMI 52.4 Intake Visit Reasons: PORT PLACEMENT Chief Complaint: port placement Food And Drug Research Scientist Required: No Is patient in pain?: No Allergies povidone-iodine [From Betadine] Allergy (Verified 04/26/20 15:03) Rash soap [From Betadine] Allergy (Verified 04/26/20 15:03) Rash Medications lila.stocking,knee,reg,xlrg See Dose Instructions .ROUTE .MEDSUPPLY #2 ea 10/16/18 [Rx Confirmed 04/26/20] albuterol sulfate 90 mcg/actuation aerosol inhaler 2 puff INHALATION Q4H PRN #18 g 04/25/19 [Rx Confirmed 04/26/20] budesonide-formoterol HFA 160 mcg-4.5 mcg/actuation aerosol inhaler 2 puff INHALATION Q12H #10.2 g 05/20/19 [Rx Confirmed 04/26/20] hydrochlorothiazide 25 mg tablet 25 mg PO DAILY #90 tab 05/28/19 [Rx Confirmed 04/26/20] omeprazole 20 mg capsule,delayed release 20 mg PO DAILY #90 cap 05/29/19 [Rx Confirmed 04/26/20] nifedipine 90 mg tablet,extended release 90 mg PO DAILY #90 tab 09/25/19 [Rx Confirmed 04/26/20] bupropion HCl 150 mg tablet,12 hr sustained-release 150 mg PO BID #180 ea 10/14/19 [Rx Confirmed 04/26/20] metoprolol tartrate 100 mg tablet 100 mg PO BID #180 tab 10/14/19 [Rx Confirmed 04/26/20] fluticasone propionate 50 mcg/actuation nasal spray,suspension See Rx Instructions .ROUTE .COMPLEX #16 g 12/25/19 [Rx Confirmed 04/26/20] potassium chloride 20 mEq tablet,extended release 20 meq PO BID #180 tab 02/09/20 [Rx Confirmed 04/26/20] PFSH Medical History Chronic kidney disease, stage III (moderate) (Chronic) Obstructive sleep apnea (Chronic) Borderline type 2 diabetes mellitus (Chronic) Bilateral lower extremity edema (Chronic) GERD (gastroesophageal reflux disease) (Chronic) Hypertension (Chronic) Surgical History History of tubal ligation (Resolved) S/P tonsillectomy (Acute) Family History Grandmother Hypertension Diabetes Mother Diabetes Breast cancer Social History (Updated 04/26/20 @ 15:[address] Victor Manuel Hardy MD) Smoking Status: Former smoker how long ago did patient quit smokin03/2018 alcohol intake: current alcohol intake frequency: holidays/special occasions only substance use type: does not use frequency: does not exercise HPI HPI Surgical H&P: Yes HPI: QUENTIN ALEXANDRE, is a 64 F who presents to the office today for Evaluation for a PowerPort. 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 She will be starting chemotherapy this May 10 and a port is needed. ROS General General: No weight change, appetite, fatigue, colon cancer, breast cancer or weakness HEENT HEENT: No difficulty swallowing, eye injury, eye surgery, swollen glands or hoarseness Endo Endocrine: No thyroid disease, diabetes mellitus, thyroid cancer, Hair loss, heat intolerance or cold intolerance Skin Skin: No rash or changing moles Breast Breast: No left breast lump, right breast lump, nipple discharge, breast pain, abnormal mammogram, abnormal US or breast enlargement Musc Musculoskeletal: No back problems, arthritis, rheumatoid arthritis, gout or joint pain Cardio Cardiovascular: Yes high blood pressure; no murmur, pacemaker, heart disease, atrial fibrillation, heart attack, heart stent, palpitations, shortness of breat with exertion or chest pain Psych Psychiatric: No depression, anxiety or hearing voices Resp Respiratory: Yes shortness of breath, Yes sleep apnea, No cough, No COPD, Yes asthma, No emphysema, No wheezing Gastro Gastrointestinal: No abdominal pain, No nausea or vomiting, No diarrhea, No constipation, No blood in stool, No acid reflux, No hemorrhoids, No ulcers, No gallbladder problem, No black,tarry stools Sal Hematologic: No blood thinners, No blood disorders, No bleeding, No anemia, No blood clots Neuro Neurologic: No system reviewed and no additional complaints, except as docu, No as per HPI, No abnormal walking, No abnormal hearing, No abnormal movements, No abnormal speech, No behavioral changes, No burning sensations, No confusion, No seizure-like activity, No unsteadiness, No dizziness, No localized weakness, No frequent falls, No headache(s), No lack of coordination, No loss of vision, No memory loss, No numbness, No other visual disturbances, No radiating pain, No restless legs, No sensory deficit, No fainting, No tingling, No tremor(s), No weakness, No other Exam Const General: no acute distress, well developed, well hydrated Orientation: oriented to person, oriented to place, oriented to time [facility] Head: normocephalic, atraumatic Ears: external ears normal Mouth: moist mucous membranes Eyes Sclera: sclerae normal Pupils: normal by confrontation Neck Neck: no lymphadenopathy noted Neck mass: No Thyroid: thyroid normal, symmetrical Chest Chest palpation & inspection: normal inspection of the chest Breast Palpation: No nipple discharge Resp Effort & Inspection: normal respiratory effort Auscultation: clear to auscultation bilaterally Percussion: percussion normal Cardio Rate: regular rate Rhythm: regular rhythm Heart Sounds: no murmurs GI Palpation: soft, no hepatosplenomegaly, no masses, nontender Rectal Exam: other Other: Rectal exam deferred. Extrem General: normal to inspection, no clubbing, cyanosis or edema Assessment & Plan Problems 1. Vascular catheter fitting or adjustment Z45.2 Plan I have discussed above with the patient- Port-a-Cath placement. Patient has been counseled as to the risks/benefits of the procedure. I have explained the risks of the surgery, including but not limited to: infection, bleeding, injury to any blood vessels/nerves, injury to lungs (such as pneumothorax or hemothorax and need for chest tube), not having any access, nonfunctioning of port due to thrombosis, infection of port, etc. the patient understands and agrees to proceed. I have answered all the patient's questions to the patient?s satisfaction and the patient has no further questions. Coding Level of Care Code Off vis,new,level 3 Diagnoses Vascular catheter fitting or adjustment Z45.2 COVID (Procedure Consent) Procedure Criteria Procedure Criteria: Yes Elective The surgeon/proceduralist and patient have discussed in detail the risk of exposure to and/or potential harm posed by the COVID-19 virus with having a surgery/procedure at this time versus the risk of? delaying the surgery/procedure. It is not possible to know either the risk of delaying the surgery or procedure or chance of getting an infection with perfect accuracy, but a joint decision was made between the patient and the surgeon/proceduralist ?to proceed at this time with the scheduled surgery/procedure as indicated on the consent form. I have re-examined the patient. There are no clinical changes since date of exam.
[2020-06-03] MEDS: Cefazolin 2 GM in 0.9% Normal Saline 100 ML IV (08:43)
--- NOTE | 2020-06-03 09:40 | DCINST_ITS ---
Discharge Diet: No Restrictions - Pain medication may cause nausea. You should typically eat light foods as you take your pain medication. Discharge Activity: May Shower - with the bandage in place 1-2 days after surgery. DO NOT SHOWER WHEN YOUR PORT IS ACCESSED. Additional Activity Instructions:: May not drive, work with heavy equipment, or sign legal documents for [address] if you are no longer taking narcotic pain medications. You may drive when you are no longer taking pain medications. Additional Dressing/Incision Instructions:: Leave the bandage on for 2-3 days. When you remove the bandage, leave the steri-strips intact until they fall off. Allergies/Adverse Reactions: Allergies povidone-iodine [From Betadine] Allergy (Verified 06/03/20 07:54) Rash soap [From Betadine] Allergy (Verified 06/03/20 07:54) Rash Medications to take at Discharge nifedipine 90 mg tablet,extended release 90 mg PO DAILY #90 tab 09/25/19 potassium chloride 20 mEq tablet,extended release 20 meq PO BID #180 tab 02/09/20 Lidocaine/Prilocaine [Lidocaine-Prilocaine Cream] 1 applicatio TP DAILY PRN PRN 30 Days #1 tube 04/28/20 Ondansetron [Ondansetron Odt] 8 mg PO Q8H PRN PRN 10 Days #30 tab.rapdis 04/28/20 Prochlorperazine Maleate 10 mg PO Q6H PRN PRN 10 Days #30 tab 04/28/20 bupropion HCl 150 mg tablet,12 hr sustained-release 150 mg PO BID #180 ea 05/05/20 metoprolol tartrate 100 mg tablet 100 mg PO BID #180 tab 05/05/20 fluticasone propionate 50 mcg/actuation nasal spray,suspension See Rx Instructions .ROUTE .COMPLEX #16 g 05/25/20 hydrochlorothiazide 25 mg tablet 25 mg PO DAILY #90 tab 05/25/20 omeprazole 20 mg capsule,delayed release 20 mg PO DAILY #90 cap 05/25/20 albuterol sulfate 90 mcg/actuation aerosol inhaler 2 puff INHALATION Q4H PRN #18 g 06/01/20 budesonide-formoterol HFA 160 mcg-4.5 mcg/actuation aerosol inhaler 2 puff INHALATION Q12H #10.2 g 06/01/20 Primary Care Physician: Harmony Velarde MD [Primary Care Provider] - Test Results: Test results from this visit will be discussed in further detail at your follow- up appointment, if applicable. When: Please plan to follow up with oncology in 7 days in the office.
--- NOTE | 2020-06-03 09:41 | OP.PCM_ITS ---
Problem List (1) Vascular catheter fitting or adjustment Status: Acute Report of Operation Date of Procedure: 06/03/20 Pre-Operative Diagnosis: Vascular catheter fitting and adjustment Post-Operative Diagnosis: Same Surgery/Procedure Performed:: Right IJ PowerPort Type of Anesthesia:: General Anesthesiologist: Chemo Montano Description of Procedure: Patient was brought into the operating room. Placed in the supine position. Under excellent general endotracheal ovation I ultrasound the right neck identify the internal jugular vein the neck and chest were then sterilely prepped and draped in usual fashion. Local was injected into the neck using ultrasound as a guide I gain access into the internal jugular vein without difficulty guidewire was placed into the needle the needle was removed fluoroscopy was then used to confirm proper placement of the guidewire. Local was injected into the chest. Incision was made electrocautery was used to create a pocket for the port. I went back up into the neck skin jaylyn was made dilator was placed over the guidewire and removed dilator and sheath were placed over the guidewire removing the dilator and guidewire leaving the sheath in place. Single-lumen catheter was placed into the internal jugular vein down to the superior vena cava the sheath was removed. Fluoroscopy was used to confirm proper length. I tunneled from the pocket created over the collarbone into the neck and brought the catheter down. It flushed well. I cut the catheter to length. I placed the locking hub under the catheter the catheter onto the port and secured the 2 with a locking hub. It flushed and irrigated well it was flushed with 5 cc of Hepflush. I sutured it into the pocket created with 2 s utures of 0 Prolene. Skin incisions were closed with deep dermal stitches of 3- 0 Vicryl. Dermabond was applied sterile dressings were applied and the patient tolerated the procedure well. Portable chest x-ray was ordered - Admit VTE Documentation VTE Present on Admission: No VTE Mechan Device Prophylaxis: SCD's VTE Pharm Prophylaxis ordered?: No Reason prophylaxis not ordered:: Treatment Not Indicated - Procedures Cardiovascular CF Procedures [id number]: [id number] Insert tunneled cv cath - [id number], [id number]
--- NOTE | 2020-06-03 10:14 | RAD_ITS ---
STUDY: X-RAY CHEST REASON FOR EXAM: Female, 64 years old. PORT PLACEMENT RIGHT CHEST TECHNIQUE: Single AP portable view of the chest. COMPARISON: 04/14/2020 FINDINGS: Interval placement of right internal jugular chest port with tip of the catheter overlying the junction of the right atrium and screw vena cava with no pneumothorax. The lungs are clear and expanded. There is no demonstrated pleural abnormality. There is moderate cardiac enlargement. Normal mediastinum and nicole. Normal visualized pulmonary arteries. Normal visualized aortic arch and descending thoracic aorta. Normal visualized thoracic spine. Normal visualized ribs, clavicles, and shoulders. There is no demonstrated abnormality of the visualized soft tissue structures of the upper abdomen. RAD/CXR for Line Placement IMPRESSION: Interval placement of right internal jugular chest port with tip the catheter overlying the junction of the right atrium and screw vena cava with no pneumothorax per Electronically Signed: Doyle Chicas MD at 10:27 EST Tel , Service support ,
== END 2020-06-03 12:24 | disposition home or self-care (01) ==
LOC: SDC 07:30 → AC 07:31
PROVIDERS: PCP Internal Medicine; Referring Provider Surgery; Visit Provider Surgery
PROC: (CPT 36561; principal; 2020-06-03 08:45)
DX: Z45.2 Encounter for adjustment and management of vascular access device (principal); C56.2 Malignant neoplasm of left ovary; I12.9 Hypertensive chronic kidney disease with stage 1 through stage 4 chronic kidney disease, or unspecified chronic kidney disease; N18.30 Chronic kidney disease, stage 3 unspecified; G47.33 Obstructive sleep apnea (adult) (pediatric); K21.9 Gastro-esophageal reflux disease without esophagitis; Z78.0 Asymptomatic menopausal state; Z79.899 Other long term (current) drug therapy; Z87.891 Personal history of nicotine dependence
CPT/HCPCS: 36561; 71045; 77001; J7120; C1788

== ENCOUNTER → 2020-06-17 13:04 | Outpatient (CLI) | payer MEDICAID, SELFPAY ==
[2020-06-08 10:09] VITALS: BMI 51.6
[2020-06-15 10:21] VITALS: BMI 51.6
--- NOTE | 2020-06-17 13:06 | CT_ITS ---
STUDY: CT ABDOMEN AND PELVIS WITH CONTRAST REASON FOR EXAM: Female, 64 years old. ASSESSING CHEMO RESPONSE -- HX-MALIGNANT NEOPLASM LEFT OVARY RADIATION DOSAGE (If Supplied By Facility): CTDIvol = ( 19.04 ) mGy, DLP = ( 2541.74 ) mGycm TECHNIQUE: Transaxial images were obtained from the dome of the diaphragm to the symphysis pubis without oral contrast. IV 100mL Isovue-370 was administered. Sagittal and coronal images were reconstructed. Individualized dose optimization techniques were used for this CT. COMPARISON: Comparison is made with prior study dated 03/29/2020. FINDINGS: The visualized lung bases are unremarkable. The visualized portions of the heart are within normal limits. Normal liver. There are multiple gallstones. Normal spleen. Normal pancreas. There is a small, circumscribed, smooth, low attenuation right adrenal mass, consistent with an adrenal adenoma. This measures 2.4 cm. Normal left adrenal gland. Stable 2 cm cyst in the posterior medial aspect of the right kidney. Stable 2.1 cm cyst in the posterior-lateral aspect of the right kidney. Normal left kidney. There is a small hiatal hernia. Normal small intestine. Normal colon. The appendix is visualized and appears normal. Normal abdominal aorta. Normal inferior vena cava. There is a 7.1 cm x 8.7 cm enhancing mass in the left mid abdomen. This abuts the aorta and anterior aspect of the left kidney. This has increased slightly in size as compared to prior study. There is a 2.9 sign by 2.6 cm soft tissue nodule adherent to the anterior abdominal wall most likely representing an omental metastasis. This has increased in size as well. Stable nodular density in the peritoneal fat anterior to the right lobe of the liver. Small residual retroperitoneal lymph nodes. The previously seen left ovarian mass as decreased in size. It presently measures 2.5 cm by 2.9 cm. Evidence of prior bilateral tubal ligation. Normal urinary bladder. Enlarged heterogeneous uterus. Stable bilateral inguinal adenopathy more prominent on the left side. Normal osseous structures. CT/Abdomen/Pelvis W IV Cont ONLY IMPRESSION: Slight progression in the left para-aortic mass. Residual retroperitoneal and pelvic lymphadenopathy. Slight increase in size of the anterior omental nodules. Electronically Signed: Tyler Badillo, at 14:12 EST , Service support ,
--- NOTE | 2020-06-17 13:06 | CT_ITS ---
STUDY: CT CHEST WITH CONTRAST REASON FOR EXAM: Female, 64 years old. ASSESSING CHEMO RESPONSE -- HX-MALIGNANT NEOPLASM LEFT OVARY RADIATION DOSAGE (If Supplied By Facility): CTDIvol = ( 19.04 ) mGy, DLP = ( 2541.74 ) mGycm TECHNIQUE: Transaxial imaging was performed following intravenous administration of IV 100mL Isovue-370. Multiplanar coronal and sagittal images were reformatted. Individualized dose optimization techniques were used for this CT. COMPARISON: Comparison is made with prior study of 04/13/2020. FINDINGS: A right-sided portacatheter is seen with the tip in the superior vena cava. Stable mild enlargement of the thyroid. The lungs are normal. There is no demonstrated pleural abnormality. Normal heart and pericardium. Normal mediastinum. Normal hilar regions. Normal enhanced pulmonary arteries. Normal aorta arch and descending thoracic aorta. There are multi-level degenerative changes of the thoracic spine. Stable right adrenal nodule. CT/Chest WITH Contrast IMPRESSION: Stable examination. Electronically Signed: Tyler Badillo, at 14:15 EST , Service support ,
--- NOTE | 2020-06-17 13:18 | CT_ITS ---
STUDY: CT SOFT TISSUE NECK WITH CONTRAST REASON FOR EXAM: Female, 64 years old. ASSESSING CHEMO RESPONSE -- HX-MALIGNANT NEOPLASM LEFT OVARY RADIATION DOSAGE (If Supplied By Facility): CTDIvol = ( 19.04 ) mGy, DLP = ( 2541.74 ) mGycm TECHNIQUE: The patient was scanned in a multi-detector CT scanner. High resolution transaxial imaging was performed following intravenous administration of IV 100mL Isovue-370. Sagittal and coronal images were reconstructed. Individualized dose optimization techniques were used for this CT. COMPARISON: None. FINDINGS: Small left supraclavicular lymph nodes. Normal bilateral parotid glands. Normal bilateral correction worker spaces. Normal bilateral parapharyngeal spaces. Normal bilateral carotid spaces. Normal bilateral sublingual and submandibular glands and spaces. Normal visualized nasopharynx. Normal retropharyngeal space. Normal perivertebral space. Normal visualized bilateral faucial tonsils. The visualized tongue, tongue base and oropharynx are normal. The visualized cervical lymph nodes (levels I-) are within normal size limits, and maintain normal morphology. There is no demonstrated solid or cystic mass lesion. There is no abnormal contrast enhancement. Normal epiglottis, bilateral vallecula and hypopharynx. The pre-epiglottic and paraglottic adipose spaces are normal. Normal visualized bilateral piriform sinuses, aryepiglottic folds, vocal cords, and arytenoid-cricoid articulations. Normal subglottic trachea. Normal bilateral lobes of the thyroid gland. Normal visualized pulmonary apices. Normal visualized paranasal sinuses. There is multilevel degenerative changes of the cervical spine. CT/Soft Tissue Neck WITH Contrast IMPRESSION: Small left supraclavicular lymph nodes. Electronically Signed: Tyler Badillo, at 14:13 EST , Service support ,
[2020-06-17] MEDS: 0.9% Saline Lock 10 ML Syringe IV (13:41)
== END ==
PROVIDERS: PCP Internal Medicine; Referring Provider Internal Medicine Medical Oncology; Visit Provider Internal Medicine Medical Oncology
DX: C56.2 Malignant neoplasm of left ovary (principal); K66.8 Other specified disorders of peritoneum
CPT/HCPCS: 70491; 71260; 74177; Q9967; A4216

== ENCOUNTER → 2020-07-02 14:19 | Outpatient (CLI) | payer MEDICAID, SELFPAY ==
[2020-06-29 10:20] VITALS: BMI 51.7
[2020-07-02 15:46] LABS: Anion Gap 11 (5-15); BUN 26 mg/dL (7-18); BUN/Creat Ratio 14.9 RATIO (10-20); Calcium,Total 9.8 mg/dL (8.5-10.1); Chloride 102 mmol/L (98-107); Creatinine, Serum 1.75 mg/dL (0.55-1.02); EST Glomerular Filtration Rate 31 mL/min (>60); Est Glom Filt Rate - Afr Amer 38 mL/min (>60); Glucose 132 mg/dL (74-106); Potassium 3.7 mmol/L (3.5-5.1); Protein, Urine (Random) 114.3 mg/dL (<11.9); Protein:Creat Ratio 816 mg/g CRE (0-200); Sodium Level 139 mmol/L (136-145)
== END ==
PROVIDERS: PCP Internal Medicine; Referring Provider Internal Medicine Nephrology; Visit Provider Internal Medicine Nephrology
DX: N18.30 Chronic kidney disease, stage 3 unspecified (principal)
CPT/HCPCS: 36415; 80048; 82570; 84156

== ENCOUNTER → 2020-08-05 15:16 | Outpatient (CLI) | payer MEDICAID, SELFPAY ==
[2020-07-20 10:05] VITALS: BMI 50.6
--- NOTE | 2020-08-05 15:18 | CT_ITS ---
HISTORY: ASSESS RESPONSE TO TREATMENT-- OVARIAN CA TECHNIQUE: CT images of the neck were obtained without IV contrast. A radiation dose optimization technique was used for this scan. Number of images including paperwork: 272 COMPARISON: 06/17/2020 FINDINGS: NASOPHARYNX: Unremarkable. SUPRAHYOID NECK: Unremarkable oropharynx, oral cavity, parapharyngeal space, and retropharyngeal space. INFRAHYOID NECK: Unremarkable larynx, hypopharynx, and supraglottis. THYROID AND SALIVARY GLANDS: Normal. LYMPH NODES: 1.3 x 1.3 cm node in the left supraclavicular region, previously 1.7 x 1.8 cm. Small adjacent nodes are not definitely enlarged by size criteria and appear similar to previous. VASCULAR STRUCTURES: Vascular calcifications. ORBITS: Unremarkable. PARANASAL SINUSES: No air fluid level. MASTOID AIR CELLS: Unremarkable. BONES: Degenerative changes. THORACIC INLET: Clear lung apices. Right chest port partially visible. CT/Soft Tissue Neck without Contr IMPRESSION: Mild decrease in left supraclavicular adenopathy.. Individualized dose optimization techniques were used for this CT. at 0308 Reported and signed by: Lois Lobo MD Electronically Signed: Lois Lobo MD at 3:08 EST Tel , Service support ,
--- NOTE | 2020-08-05 15:18 | CT_ITS ---
ACR Level 3 findings have been noted. An addendum which confirms receipt of the report will follow. HISTORY: ASSESS RESPONSE TO TREATMENT-- OVARIAN CA ADDITIONAL HISTORY: None provided. EXAMINATION/TECHNIQUE: CT Abdomen And Pelvis W/O Contrast Injection Enteric contrast was given. Number of images including paperwork: [id number]. A radiation dose optimization technique was used for this scan. COMPARISON: 06/17/2020 FINDINGS: Evaluation of the abdominopelvic organs is limited in the absence of contrast. LOWER THORAX: No consolidation or pleural effusion. Enlarged heart. Vascular catheter tip in the right atrium. LIVER: No concerning focal lesion. GALLBLADDER: Multiple calcified gallstones. BILE DUCTS: No significant biliary dilatation. SPLEEN: Unremarkable. PANCREAS: Unremarkable. ADRENAL GLANDS: Right adrenal adenoma measuring 2.5 x 1.4 cm is unchanged. Left adrenal gland appears similar. KIDNEYS/URETERS: Multiple bilateral renal cysts. Indeterminate right renal lesions measuring up to about 2 cm, similar to previous. BOWEL: No bowel obstruction. No significant bowel wall thickening. No localized inflammation. APPENDIX: No evidence of appendicitis. FREE FLUID: No significant free fluid. FREE AIR: None. LYMPH NODES: No pathologic appearing adenopathy. PERITONEUM, RETROPERITONEUM AND MESENTERY: Partially rim calcified ovoid lesion in the left midabdomen is lower in density when compared with the previous study, at which time it was similar in density to vascular enhancement. It measures 8.6 x 7.4 cm, similar to previous with measurements to the same level and orientation. Ovoid density caudal to this measuring about 2.1 cm was also similar to vascular density on the previous study and lower in density on today's exam, also similar in size. Soft tissue density abutting the anterior aspect of the abdominal aorta and inferior margin of the pancreatic head appears grossly similar. Masses in the anterior abdominal fat (4: 56 and 60), have decreased in size and are now calcified. Larger measures 1.9 x 3.0 cm, previously 2.3 x 3.8 cm. VASCULATURE: Atherosclerotic calcification. ABDOMINAL WALL: Unremarkable. PELVIS: Unremarkable bladder. Left ovarian mass no longer distinctly seen. Tubal ligation clips. OSSEOUS AND SOFT TISSUE STRUCTURES: No acute skeletal findings. Degenerative changes. CT/Abdomen/Pel W ORAL Cont Only IMPRESSION: 1. Decrease in left ovarian mass and peritoneal nodules, the latter now calcified. 2. Partially rim calcified left abdominal lesion and adjacent ovoid nodular density are stable in size and had density similar to vascular density on the previous study, appearance concerning for aneurysms. CTA recommended for further evaluation. 3. Additional findings above. Individualized dose optimization techniques were used for this CT. at 0215 Reported and signed by: Lois Lobo MD Electronically Signed: Lois Lobo MD at 2:15 EST Tel , Service support ,
--- NOTE | 2020-08-05 15:18 | CT_ITS ---
STUDY: CT CHEST WITHOUT CONTRAST REASON FOR EXAM: Female, 64 years old. ASSESS RESPONSE TO TREATMENT-- OVARIAN CA RADIATION DOSAGE (If Supplied By Facility): CTDIvol = ( 21.87 ) mGy, DLP = ( 688.36 ) mGycm TECHNIQUE: Transaxial imaging was performed without the administration of intravenous contrast material. Individualized dose optimization techniques were used for this CT. COMPARISON: None. FINDINGS: The lungs are expanded. The stable right upper lobe peripheral 3 mm nodular density similar to previous study, image 18 series 8. Normal heart and pericardium. Stable prominence of the thyroid lobes, right more than left Normal mediastinum. Normal hilar regions. Normal unenhanced pulmonary arteries. Normal aorta arch and descending thoracic aorta. Moderate degenerative vertebral changes. There is no demonstrated abnormality of the visualized upper abdomen. CT/Chest without Contrast IMPRESSION: Stable small right upper lobe peripheral nodular density, similar to previous study. Electronically Signed: Coleman Bañuelos DO at 23:26 EST Tel [phone], Service support ,
== END ==
PROVIDERS: PCP Internal Medicine; Referring Provider Internal Medicine Medical Oncology; Visit Provider Internal Medicine Medical Oncology
DX: C56.9 Malignant neoplasm of unspecified ovary (principal)
CPT/HCPCS: 70490; 71250; 74176

== ENCOUNTER 2020-09-29 14:15 | Outpatient (CLI) | payer MEDICAID, SELFPAY ==
[2020-09-07 13:38] VITALS: BMI 49.1
== END 2020-09-29 16:00 | disposition home or self-care (01) ==
LOC: MEDOUTP 14:16
PROVIDERS: PCP Internal Medicine; Referring Provider Internal Medicine; Visit Provider Internal Medicine
DX: R53.1 Weakness (principal)
CPT/HCPCS: 36591; A4216

== ENCOUNTER 2020-09-30 10:02 | Outpatient (CLI) | payer MEDICAID, SELFPAY ==
[2020-09-07 13:38] VITALS: BMI 49.1
[2020-09-30] VITALS (9 sets, daily range): BP systolic 153–184; BP diastolic 73–97; PULSE 63–77; RESP 16–20; TEMP 37–37.4; O2SAT 99–100; BMI 50.6
[2020-09-30] MEDS: 0.9% NaCl Peripheral Flush Adult/Peds IV ×2 (10:34→16:14)
[2020-09-30] MEDS: Loperamide 2 MG Capsule 4 MG PO (13:33)
== END 2020-09-30 16:00 | disposition intermediate care facility (04) ==
LOC: MEDOUTP 10:03
PROVIDERS: PCP Internal Medicine; Referring Provider Internal Medicine; Visit Provider Internal Medicine
DX: R53.1 Weakness (principal)
CPT/HCPCS: 36430; 86850; 86900; 86901; 86920; 86922; J7040; P9016; A4216

== ENCOUNTER → 2020-11-10 12:10 | Outpatient (CLI) | payer MEDICAID, SELFPAY ==
[2020-11-09 10:12] VITALS: BMI 45.3
[2020-11-10 10:10] VITALS: BMI 45.3
--- NOTE | 2020-11-10 12:14 | VDLE_ITS ---
Reason For Study: Swelling Procedure LEFT This is a venous duplex using B-mode, color GSV is normal. flow and spectral Doppler. CFV is compressible, spontaneous, phasic, Exam performed in department. competent, and demonstrates normal A preliminary report was called and/or faxed augmentation. to [facility]. FV is compressible, spontaneous, phasic, competent and demonstrates normal augmentation. POP V is compressible, spontaneous, phasic, competent and demonstrates normal augmentation. T/P Trunk is compressible. PTV is compressible. LT PerV is compressible. VL/Venous Duplex US, Unilateral Interpretation Summary There is no evidence of left lower extremity deep vein thrombosis. Left great s aphenous vein appears patent and compressible segmentally. Ordering Physician: Berna Pierson Referring Physician: Harmony Velarde Performed By: Nori Ochoa RVT
== END ==
PROVIDERS: PCP Internal Medicine; Referring Provider Nurse Practitioner Family; Visit Provider Nurse Practitioner Family
DX: M79.89 Other specified soft tissue disorders (principal)
CPT/HCPCS: 93971

== ENCOUNTER → 2021-01-28 17:01 | Outpatient (CLI) | payer MEDICARE, MEDICAID, SELFPAY ==
[2021-01-19 11:27] VITALS: BMI 41.6
[2021-01-26 10:49] VITALS: BMI 41.1
--- NOTE | 2021-01-28 17:05 | MRI_ITS ---
STUDY: MRI BRAIN WITHOUT CONTRAST REASON FOR EXAM: Female, 65 years old. Prostatic ovarian cancer intracranial staging TECHNIQUE: Standardized multiplanar fat and water weighted pulse sequences were obtained. COMPARISON: None. FINDINGS: Examination is technically suboptimal due to lack of IV contrast. Some diagnostic information is available. There is right frontal and anterior temporal lobe, right parietal, left occipital infarct with wedge-shaped encephalomalacia. There is moderate periventricular/deep white matter chronic ischemic disease. There are no mass lesions on noncontrast exam. There is no mass effect, shift or hydrocephalus. Major vascular flow structures are intact. There are no skull destructive lesions. MRI/Brain without Contrast IMPRESSION: 1. Suboptimal examination due to lack of IV contrast. 2. Multiple infarcts. Electronically Signed: Liya Chavez MD at 18:53 EDT Tel , Service support ,
== END ==
PROVIDERS: PCP Internal Medicine; Referring Provider Internal Medicine Medical Oncology; Visit Provider Internal Medicine Medical Oncology
DX: C56.9 Malignant neoplasm of unspecified ovary (principal)
CPT/HCPCS: 70551

== ENCOUNTER → 2021-02-17 12:24 | Outpatient (CLI) | payer MEDICARE, MEDICAID, SELFPAY ==
[2021-02-16 11:53] VITALS: BMI 37.3
--- NOTE | 2021-02-17 12:28 | RAD_ITS ---
STUDY: X-RAY CHEST REASON FOR EXAM: Female, 65 years old. Leukocytosis TECHNIQUE: PA and lateral views of the chest. COMPARISON: Comparison is made with prior study dated 04/14/2020. FINDINGS: A right-sided portacatheter is seen with the tip at the junction of the superior vena cava and right atrium. The lungs are clear and expanded. There is no demonstrated pleural abnormality. Normal size heart. Normal mediastinum and nicole. Normal visualized pulmonary arteries. There is atherosclerotic calcification of the aortic arch with tortuosity. There are degenerative changes of the visualized thoracic spine. Normal visualized ribs, clavicles, and shoulders. There is no demonstrated abnormality of the visualized soft tissue structures of the upper abdomen. RAD/Chest PA and Lateral IMPRESSION: No acute abnormality is seen. Electronically Signed: Tyler Badillo MD at 15:04 EDT , Service support ,
== END ==
PROVIDERS: PCP Internal Medicine; Referring Provider Nurse Practitioner Family; Visit Provider Nurse Practitioner Family
DX: D72.829 Elevated white blood cell count, unspecified (principal)
CPT/HCPCS: 71046

== ENCOUNTER → 2022-11-03 | Outpatient (CLI) | payer MEDICARE, MEDICAID, SELFPAY ==
--- NOTE | 2022-11-03 11:43 | MRI_ITS ---
INDICATION: MEMORY LOSS/ Hx of OVARIAN CA EXAMINATION: MRI - MR Brain WO/W Contrast TECHNIQUE: Multiplanar and multisequence MR images of the brain were obtained without and with gadolinium. IV Contrast Dosage and Agent: None. COMPARISON: 01/28/2021. FINDINGS: BRAIN AND EXTRA-AXIAL SPACES: No intracranial mass, mass effect, or midline shift. No enhancing lesion. No hemorrhage or acute ischemia. Chronic right frontal and left parietal infarcts. Small chronic right parietal infarct. Chronic right basal ganglia lacunar infarct. Chronic left caudate lacunar infarct. Extensive T2 signal hyperintensity in the white matter consistent with microvascular ischemia. Mild cerebral atrophy with widening of the extra-axial spaces and ventricular dilation. Basal cisterns are unremarkable. SELLA: Pituitary gland is normal in height. AUDITORY SYSTEM: Unremarkable. BONES/JOINTS: Unremarkable. SINUSES: Mild mucosal thickening in the ethmoid sinuses. MASTOID AIR CELLS: Unremarkable as visualized. Clear. ORBITS: Unremarkable as visualized. VASCULATURE: Normal flow voids in the major intracranial circulation. MRI/Brain W/WO Contrast IMPRESSION: No acute findings. Chronic bilateral infarcts and lacunar infarcts. Extensive microvascular ischemic changes. Mild atrophy. Electronically Signed: Lisa Siu MD at 17:06 EDT Reading Location ID and State: [id number] / Tel , Service support ,
[2022-11-03 15:20] LABS: CREATININE FINGERSTICK 1.8 mg/dL (0.55-1.02)
[2022-11-03] MEDS: 0.9% Saline Lock 10 ML Syringe IV (15:40)
== END | disposition home or self-care (01) ==
PROVIDERS: PCP Internal Medicine; Referring Provider Internal Medicine Medical Oncology; Visit Provider Internal Medicine Medical Oncology
DX: R41.82 Altered mental status, unspecified (principal); C56.9 Malignant neoplasm of unspecified ovary
CPT/HCPCS: 70553; A9575; A4216

== ENCOUNTER → 2023-11-30 | Outpatient (CLI) | payer MEDICARE, MEDICAID, SELFPAY ==
--- NOTE | 2023-11-30 13:48 | VDLE_ITS ---
Reason For Study: Bilateral leg swelling RIGHT LEFT GSV is normal. GSV is normal. CFV is compressible, spontaneous, phasic, CFV is compressible, spontaneous, phasic, competent and demonstrates normal competent, and demonstrates normal augmentation. augmentation. FV is compressible, spontaneous, phasic, FV is compressible, spontaneous, phasic, competent and demonstrates normal competent and demonstrates normal augmentation. augmentation. POP V is compressible, spontaneous, phasic, POP V is compressible, spontaneous, phasic, competent and demonstrates normal competent and demonstrates normal augmentation. augmentation. T/P Trunk is compressible. T/P Trunk is compressible. PTV is compressible. PTV is compressible. RT PerV is compressible. LT PerV is compressible. Procedure This is a venous duplex using B-mode, color flow and spectral Doppler. Exam performed in department. A preliminary report was called and/or faxed to [facility] SCHAEFFER. VL/Venous Duplex US - Trevon Extrem Interpretation Summary No evidence for acute deep venous thrombosis bilateral lower extremities with p atent and compressible bilateral great saphenous veins. Ordering Physician: David Corral Referring Physician: Harmony Velarde Performed By: Nori Ochoa RVT
== END | disposition home or self-care (01) ==
LOC: CVS 13:43
PROVIDERS: PCP Internal Medicine; Referring Provider Internal Medicine Medical Oncology; Visit Provider Internal Medicine Medical Oncology
DX: R06.02 Shortness of breath (principal); M79.89 Other specified soft tissue disorders
CPT/HCPCS: 93970

== ENCOUNTER → 2024-04-30 | Outpatient (CLI) | payer MEDICARE, MEDICAID, SELFPAY ==
--- NOTE | 2024-04-30 12:22 | NEURO ---
NCS and/or EMG Patient Report Ordering Doctor: Harmony Velarde DATE OF SERVICE: 04/30/24 Britta presents with complaints of numbness and tingling in the left hand. Electrodiagnostic findings: Left median motor nerve demonstrates prolonged distal latency with normal amplitude and reduced conduction velocity. Left ulnar motor response is within normal limits. Prolonged left median F?wave. Prolonged left median sensory latency at the wrist. Normal ulnar radial sensory responses. Needle EMG testing was performed in the left upper limb. All muscles tested showed no evidence of denervation with normal motor unit action potentials. Electrodiagnostic impression: This is an abnormal study in the left upper limb 1. Electrodiagnostic findings significant left-sided median mononeuropathy. This is consistent with a mild left carpal tunnel syndrome. Multi Select Codes Neurology Neurology Interp Codes: 19611-24 Musc test done w/n test comp (interp) and 41997-99 Nrv cndj tst 5-6 studies (interp)
== END | disposition home or self-care (01) ==
PROVIDERS: PCP Internal Medicine; Referring Provider Internal Medicine; Visit Provider Internal Medicine
DX: R29.898 Other symptoms and signs involving the musculoskeletal system (principal)
CPT/HCPCS: 95886; 95909

== ENCOUNTER → 2024-09-03 | Outpatient (CLI) | payer MEDICARE, MEDICAID, SELFPAY ==
[2024-09-03 17:51] LABS: Anion Gap 9 (5-15); BUN 35 mg/dL (7-18); Calcium,Total 9.4 mg/dL (8.5-10.1); Chloride 103 mmol/L (98-107); EST Glomerular Filtration Rate 19 mL/min (>60); Est Glom Filt Rate - Afr Amer 23 mL/min (>60); Glucose 104 mg/dL (74-106); Potassium 3.8 mmol/L (3.5-5.1); Sodium Level 140 mmol/L (136-145)
== END | disposition home or self-care (01) ==
LOC: BIMLAB 15:14
PROVIDERS: PCP Internal Medicine; Referring Provider Internal Medicine; Visit Provider Internal Medicine
DX: R73.03 Prediabetes (principal)
CPT/HCPCS: 36415; 80048; 83036

== ENCOUNTER 2024-09-26 11:33 | Inpatient (IN) | payer MEDICARE, MEDICAID, SELFPAY ==
[2024-09-26] VITALS (11 sets, daily range): BP systolic 119–160; BP diastolic 74–100; PULSE 83–90; RESP 15–20; TEMP 36.6–36.8; O2SAT 96–99; BMI 41.5; BMI 40.8
--- NOTE | 2024-09-26 11:53 | RAD_ITS ---
PROCEDURE: CHEST 1 VIEW (PORTABLE) REASON FOR EXAM: Weakness and pitting edema. TECHNIQUE: A portable chest radiograph was obtained. COMPARISON: Comparison is made with prior study dated February 17, 2021. FINDINGS: A right-sided port a catheter is seen with the tip at the junction of the right atrium and superior vena cava. EKG electrodes are seen. Limited inspiratory effort. No focal infiltrate is seen. Tortuosity of the thoracic aorta. Degenerative changes are identified within the thoracic spine. RAD/Chest 1 View (Portable) IMPRESSION: A right-sided port a catheter is seen with the tip at the junction of the super ior vena cava and right atrium. Limited inspiratory effort. No acute abnormality is seen. Reading Location: [facility]
--- NOTE | 2024-09-26 11:53 | EKG12_ITS ---
Test Reason : HTN Blood Pressure : */* mmHG Vent. Rate : 87 BPM Atrial Rate : 87 BPM P-R Int : 154 ms QRS Dur : 134 ms QT Int : 408 ms P-R-T Axes : 43 -54 94 degrees QTcB Int : 490 ms Normal sinus rhythm Left axis deviation Left bundle branch block Abnormal ECG Confirmed by Immanuel Ely ([id number]), book editor LEO PAUL ([id number]) on 09/29/2024 10:45:16 AM Referred By: JIA Confirmed By: Immanuel Ely
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
[2024-09-26 12:35] LABS: Absolute Lymphocyte Count 0.69 X10^3/uL (0.83-4.51); Basophil# 0.03 X10^3/uL; Basophil% 0.2 % (0-1); Eosinophil# 0.01 X10^3/uL; Eosinophils% 0.1 % (0-5); Hematocrit 34.8 % (37-47); Hemoglobin 11.6 g/dL (12.0-15.0); Lymphocyte # 0.69 X10^3/ul (0.83-4.51); Lymphocyte % 4.5 % (19-41); Mean Corp Hgb Conc 33.3 g/dL (32-36); Mean Corpuscular Volume 95.9 fL (81-99); Mean Platelet Vol. 12.4 fl (6.2-12.0); Monocyte# 1.43 X10^3/uL; Monocyte% 9.4 % (0-10); NRBC Flagged by Analyzer 0 % (0-5); Neutrophil # 12.95 X10^3/uL (2.7-7.7); Neutrophil % 85.2 % (47-70); Platelet Count 213 K/mm3 (150-450); RBC Distribution Width CV 13.7 % (11.6-14.6); Red Blood Count 3.63 M/mm3 (4.2-5.4); White Blood Count 15.2 K/mm3 (4.4-11.0)
[2024-09-26 12:52] LABS: AST(SGOT) 28 U/L (<=31); Alanine Aminotransfer ALT/SGPT 18 U/L (<=34); Albumin, Serum 3.8 g/dL (3.4-4.8); Alkaline Phosphatase 99 U/L (35-104); Anion Gap 17 (5-15); BUN 60 mg/dL (4-19); BUN/Creat Ratio 15.5 RATIO (10-20); Bilirubin, Direct 0.38 mg/dL (0.00-0.30); Calcium 9.8 mg/dL (7.6-11.0); Carbon Dioxide 21.7 mmol/L (22.0-29.0); Chloride 95 mmol/L (96-108); Creatinine, Serum 3.89 mg/dL (0.70-1.20); EST Glomerular Filtration Rate 12 (>60); Estimated Creatinine Clearance 17.98 ml/min; Globulin 4.4 g/dL (2.2-4.2); Glucose 144 mg/dL (70-99); Potassium 3.4 mmol/L (3.3-5.1); Pro- Brain NATRIURETIC PEPTIDE 1143 pg/mL (<=900); Protein, Total 8.2 g/dL (5.9-8.4); Sodium Level 134 mmol/L (133-145); Total Bilirubin 0.79 mg/dL (0.00-1.30)
[2024-09-26 13:01] LABS: Bacteria 0 SEEN /hpf (None Seen); Mucous, Urine 0 SEEN /hpf (<or=2+)
[2024-09-26 13:13] LABS: Color, Urine Yellow (Yellow); Glucose, Dipstick Normal (Normal); Ketone-Dipstick Negative (Negative); Leukocyte Esterase-Dipstick 25 /ul (Negative); Nitrite-Dipstick Negative (Negative); Occult Blood-Urine Negative /ul (Negative); Protein-Dipstick 100 mg/dl (Negative); Specific Gravity, Urine 1.025 (1.002-1.030); Urine Clarity Sl. Cloudy (Clear); Urine Urobilinogen 1 mg/dl (Normal)
[2024-09-26 13:14] LABS: Urine Bilirubin Dipstick 1 mg/dL (Negative)
[2024-09-26 13:29] LABS: Amorphous Sediment 2+ URATE; Red Blood Cells-Urine 0-5 SEEN /hpf (0-5); Squamous Epithelial Cells - UA 0-5 SEEN /hpf (5-10); White Blood Cells 0-5 SEEN /hpf (0-5)
[2024-09-26] MEDS: Furosemide 100 MG/10 ML Vial 60 MG IV (13:41)
[2024-09-26 13:55] LABS: Fine Granular Cast- Urine 0-5 SEEN /lpf (0-5); Hyaline Cast 0-5 SEEN /lpf (0-5)
--- NOTE | 2024-09-26 14:45 | ECHOD_ITS ---
Reason For Study Reason For Study: GENERALIZED EDEMA Procedure This was a 2D Doppler, Color Flow transthoracic echocardiogram. Exam performed portable in patient room. Left Ventricle Normal LV size. The estimated ejection fraction is 60 %. No evidence for diastolic dysfunction. No regional wall motion abnormalities noted. Right Ventricle Normal RV size. Normal systolic function. Atria The left and right atria are normal. No doppler evidence for ASD. Mitral Valve There is mild mitral annular calcification. There is no mitral valve stenosis. No mitral valve insufficiency. Tricuspid Valve There is no tricuspid stenosis. Trivial tricuspid valve insufficiency. Pulmonary artery systolic pressure is 40 mmHg. Aortic Valve Trisinus/trileaflet aortic valve. There is no aortic stenosis. No aortic valve insufficiency. Pulmonic Valve There is no pulmonic valvular stenosis. No pulmonic valve insufficiency. Great Vessels Normal sized aortic root. Pericardium/Pleural No pericardial effusion. MMode/2D Measurements & Calculations LVIDd: 4.0 cm IVSd: 2.3 cm LVOT diam: 2.0 cm LVIDs: 3.2 cm LVPWd: 2.0 cm LVOT area: 3.2 cm2 FS: 20.1 % LAV(MOD-bp): 66.0 ml LVAd ap4: 25.4 cm2 SV(MOD-sp4): 38.0 ml LAV(MOD-bp) Indexed: 29.5 ml/m2 LVLd ap4: 8.2 cm SI(MOD-sp4): 17.0 ml/m2 LAV(MOD-sp2): 75.3 ml EDV(MOD-sp4): 65.7 ml LAV(MOD-sp4): 54.1 ml EDV(sp4-el): 66.6 ml LVAs ap4: 15.2 cm2 LVLs ap4: 7.0 cm ESV(MOD-sp4): 27.7 ml ESV(sp4-el): 28.0 ml EF(MOD-sp4): 57.8 % EF(sp4-el): 58.0 % SV(sp4-el): 38.6 ml LA A4 area: 19.9 cm2 LA dimension(2D): 3.8 cm RA A4 area: 17.0 cm2 Time Measurements MV dec time: 0.24 sec Doppler Measurements & Calculations MV E max yandel: 78.4 cm/sec Lat Peak E' Yandel: 7.9 cm/sec Med Peak E' Yandel: 6.3 cm/sec MV A max yandel: 119.5 cm/sec E/E' lat: 10.0 E/E' med: 12.4 MV E/A: 0.66 MV V2 max: 129.1 cm/sec Ao V2 max: 216.5 cm/sec MV max P.7 mmHg MV dec slope: 341.6 cm/sec2 Ao max P.8 mmHg MV V2 mean: 83.1 cm/sec Ao V2 mean: 131.8 cm/sec MV mean P.0 mmHg Ao mean P.5 mmHg MV V2 VTI: 36.5 cm Ao V2 VTI: 43.3 cm AV (velocity ratio): 0.66 MVA(VTI): 2.5 cm2 GLORIA(I,D): 2.1 cm2 GLORIA(V,D): 2.3 cm2 LV V1 max: 153.0 cm/sec SV(LVOT): 91.0 ml PA V2 max: 108.7 cm/sec LV V1 max P.4 mmHg PA V2 mean: 75.8 cm/sec LV V1 mean P.4 mmHg LV V1 mean: 87.5 cm/sec LV V1 VTI: 28.4 cm ECHO/Echo Complete Interpretation Summary The estimated ejection fraction is 60 %. No evidence for diastolic dysfunction. Ordering Physician: Chemo Ramirez Referring Physician: Harmony Velarde Performed By: Anaid Alexandra RCS
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
--- NOTE | 2024-09-26 15:51 | US_ITS ---
EXAM: US Retroperitoneal Limited, Renal CLINICAL INDICATION: TECHNIQUE: Real-time limited ultrasound of the retroperitoneum with image documentation. COMPARISON: No relevant prior studies available. FINDINGS: RIGHT KIDNEY: Multiple right renal cysts largest measuring up to 2.9 cm. No stones. The right kidney measures 10.7 x 6.7 x 6.4 cm. LEFT KIDNEY: Multiple left renal cysts, largest measuring up to 2.3 cm. No stones. The left kidney measures 10.7 x 6.2 x 6.1 cm. BLADDER: Urinary bladder is decompressed by the Ambrose catheter. US/Kidney and Bladder IMPRESSION: Bilateral renal cysts. Reading Location: [facility]
[2024-09-26] MEDS: 0.9% Normal Saline (1000mL) 1,000 ML 150 ML IV ×2 (16:57→23:32)
[2024-09-26] MEDS: Albuterol 2.5 MG/3 ML VIAL.NEB. INHALATION (19:54)
[2024-09-26] MEDS: Budesonide Respules 0.5 MG/2 ML AMPUL.NEB. INHALATION (19:54)
[2024-09-26] MEDS: Heparin Injection (Vial) 5,000 UNIT/ML VIAL 5000 UNIT SC (20:56)
[2024-09-26] MEDS: hydrALAZINE 50 MG Tablet PO (20:56)
[2024-09-26] MEDS: buPROPion (SR) 150 MG Tablet.SA PO (20:57)
[2024-09-26] MEDS: Metoprolol(XL)Succ 100 MG Tablet PO (20:57)
[2024-09-26] MEDS: Acetaminophen 325 MG Tablet 650 MG PO (21:05)
[2024-09-27] VITALS (12 sets, daily range): BP systolic 119–158; BP diastolic 69–77; PULSE 74–89; RESP 14–18; TEMP 36.4–37.2; O2SAT 95–99; BMI 42.0
[2024-09-27] MEDS: Acetaminophen 325 MG Tablet 650 MG PO ×2 (04:31→13:08)
[2024-09-27] MEDS: hydrALAZINE 50 MG Tablet PO ×3 (04:32→22:15)
[2024-09-27 05:38] LABS: Absolute Lymphocyte Count 0.74 X10^3/uL (0.83-4.51); Absolute Neutrophil Count 8.1 X10^3/uL (2.0-7.7); Basophil# 0.02 X10^3/uL; Basophil% 0.2 % (0-1); Eosinophil# 0.05 X10^3/uL; Eosinophils% 0.5 % (0-5); Hematocrit 31.8 % (37-47); Hemoglobin 10.6 g/dL (12.0-15.0); Lymphocyte # 0.74 X10^3/ul (0.83-4.51); Lymphocyte % 7.4 % (19-41); Mean Corp Hgb Conc 33.3 g/dL (32-36); Mean Corpuscular Hgb 31.8 pg (27.0-32.0); Mean Corpuscular Volume 95.5 fL (81-99); Mean Platelet Vol. 12.8 fl (6.2-12.0); Monocyte# 1.05 X10^3/uL; Monocyte% 10.4 % (0-10); NRBC Flagged by Analyzer 0 % (0-5); Neutrophil # 8.12 X10^3/uL (2.7-7.7); Neutrophil % 80.7 % (47-70); Platelet Count 188 K/mm3 (150-450); RBC Distribution Width SD 49.1 fl (35.1-43.9); Red Blood Count 3.33 M/mm3 (4.2-5.4); White Blood Count 10.1 K/mm3 (4.4-11.0)
[2024-09-27 05:59] LABS: Anion Gap 18 (5-15); BUN 61 mg/dL (4-19); BUN/Creat Ratio 17.5 RATIO (10-20); Calcium 9.3 mg/dL (7.6-11.0); Carbon Dioxide 21.1 mmol/L (22.0-29.0); Chloride 99 mmol/L (96-108); Creatinine, Serum 3.46 mg/dL (0.70-1.20); EST Glomerular Filtration Rate 14 (>60); Estimated Creatinine Clearance 20.35 ml/min; Glucose 109 mg/dL (70-99); Sodium Level 137 mmol/L (133-145)
--- NOTE | 2024-09-27 07:49 | PCM.PN.HOSP ---
Reason for Visit Reason for Visit: Diagnoses Acute kidney failure, unspecified (09/26/24) Other malaise (09/26/24) Other specified abnormal findings of blood chemistry (09/26/24) Subjective Subjective Bilateral knee pain, pain worse with extension of the knee. This is limiting her mobility Expresses eagerness to remove the Ambrose catheter, no discomfort because of the same at this time. Objective Data Objective Data Vital Signs: Vital Signs Temp Pulse Resp BP Pulse Ox O2 Del Method 97.6 F L 82 18 158/77 H 97 Room Air 09/27/24 04:30 09/27/24 04:32 09/27/24 04:30 09/27/24 04:30 09/27/24 04:30 09/27/24 04:38 Oxygen Delivery Method Room Air Weight: 260 lb 5.855 oz Body Mass Index (BMI) 42.0 Intake & Output: Intake and Output for Last 24 Hours 09/25/24 09/26/24 09/27/24 23:59 23:59 23:59 Intake Total 987.5 / 987.5 600 / 600 Output Total 1200 / 1200 Balance 987.5 / 987.5 -600 / -600 Lab / Micro Data Attestation: I reviewed the patient's lab results. Lab results narrative: Some improvement in creatinine, WBC but there is hypokalemia 09/27/24 04:25 09/27/24 04:25 Labs: Laboratory Results - last 24 hr 09/26/24 12:25: WBC 15.2 H, RBC 3.63 L, Hgb 11.6 L, Hct 34.8 L, MCV 95.9, MCH 32.0, MCHC 33.3, RDW Std Deviation 49.0 H, RDW Coeff of [place]iet[place] 13.7, Plt Count 213, MPV 12.4 H, Immature Gran % (Auto) 0.600, Neut % (Auto) 85.2 H, Lymph % (Auto) 4.5 L, [place] % (Auto) 9.4, Eos % (Auto) 0.1, Baso % (Auto) 0.2, Absolute Neuts (auto) 13.0 H, Absolute Lymphs (auto) 0.69 L, Nucleated RBC % 0, Sodium 134, Potassium 3.4, Chloride Direct 95 L, Carbon Dioxide 21.7 L, Anion Gap 17 H, BUN 60 H, Creatinine 3.89 H, Estim Creat Clear Calc 17.98, Est GFR (MDRD) Non-Af 12 L, BUN/Creatinine Ratio 15.5, Glucose 144 H, Calcium 9.8, Total Bilirubin 0.79, Direct Bilirubin 0.38 H, AST 28, ALT 18, Alkaline Phosphatase 99, NT pro BNP II 1143 H, Total Protein 8.2, Albumin 3.8, Globulin 4.4 H 09/26/24 12:50: Urine Color Yellow, Urine Clarity Sl. Cloudy, Urine pH 5.0, Ur Specific [place] 1.025, Urine Protein 100 H, Urine Glucose (UA) Normal, Urine Ketones Negative, Urine Occult Blood Negative, Urine Nitrite Negative, Urine Bilirubin 1 H, Urine Urobilinogen 1 H, Ur Leukocyte Esterase 25 H, Urine RBC 0-5 SEEN, Urine WBC 0-5 SEEN, Ur Squamous Epith Cells 0-5 SEEN, Amorphous Sediment 2+ URATE, Urine Bacteria 0 SEEN, Hyaline Casts 0-5 SEEN, Fine Granular Casts 0-5 SEEN, Urine Mucus 0 SEEN 09/27/24 04:25: WBC 10.1, RBC 3.33 L, Hgb 10.6 L, Hct 31.8 L, MCV 95.5, MCH 31.8, MCHC 33.3, RDW Std Deviation 49.1 H, RDW Coeff of [place]iet[place] 14.0, Plt Count 188, MPV 12.8 H, Immature Gran % (Auto) 0.800, Neut % (Auto) 80.7 H, Lymph % (Auto) 7.4 L, [place] % (Auto) 10.4 H, Eos % (Auto) 0.5, Baso % (Auto) 0.2, Absolute Neuts (auto) 8.1 H, Absolute Lymphs (auto) 0.74 L, Nucleated RBC % 0, Sodium 137, Potassium 3.0 L, Chloride Direct 99, Carbon Dioxide 21.1 L, Anion Gap 18 H, BUN 61 H, Creatinine 3.46 H, Estim Creat Clear Calc 20.35, Est GFR (MDRD) Non-Af 14 L, BUN/Creatinine Ratio 17.5, Glucose 109 H, Calcium 9.3 Micro: Microbiology 09/27/24 00:08 Mucosa - Nasopharyngeal SARS-CoV-2, Influenza & RSV (PCR) - Final Radiography Diagnostic Testing: Radiology Impression Chest X-Ray 09/26/24 11:53 IMPRESSION: A right-sided port a catheter is seen with the tip at the junction of the superior vena cava and right atrium. Limited inspiratory effort. No acute abnormality is seen. Reading Location: [facility] Physical Exam Const alert and oriented x3 HEENT head/scalp atraumatic Eyes PERRL Neck no lymphadenopathy Resp normal respiratory effort and no retractions Cardio regular rate and regular rhythm GI normal to inspection, nondistended, normoactive bowel sounds Extremity Extremity Narrative: Bilateral tenderness over the knees, no warmth, no unable to extend both knee Neuro oriented x3, CN's II-XII intact bilaterally, moves all extremities and no focal motor deficits Assessment & Plan Assessment/Plan (1) RUI (acute kidney injury): PLAN: Plan Patient with past medical history of type 2 diabetes, obesity, asthma, stage III CKD, hypertension 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 At the time of presentation she was noted to have an acute kidney injury with a baseline creatinine of 2.1 that increased to 3.8. At the time, BNP was also elevated. Today, WBC 10.1, hemoglobin 10.6, platelet 188. She has hypokalemia, BUN is 61 with a creatinine of 3.4. This is improved compared to her prior presentation of 3.8. # RUI on CKD -I/O: 2587/1200 -Mild improvement in creatinine to 3.4 -Possibly the etiology was prerenal given the improvement with fluid therapy -Renal ultrasound done, waiting for results # Urinary tract obstruction - Had difficulty in urine voiding at the time of admission -Will need voiding trial before discharge, presently tolerating Ambrose's well. #Hypokalemia -Likely medication associated as this given Lasix but the spironolactone was discontinued -Oral supplementation with potassium chloride -Repeat potassium, check magnesium levels # Severe knee pain # Suspected osteoarthritis - PT/ OT evaluation - CM evaluation regarding discharge and also support at home after discharge - ESR, CRP for tomorrow - Possible outpatient orthopedics evaluation for knee replacement #Prior ovarian cancer -Presently on niraparib -Disease in remission #Hypertension - Continue home medications #Type 2 diabetes - Monitor sugars Charges/Coding Visit Charges Inpatient E&M: 14691 Init Hosp L2
[2024-09-27] MEDS: Albuterol 2.5 MG/3 ML VIAL.NEB. INHALATION ×2 (08:02→13:51)
[2024-09-27] MEDS: Budesonide Respules 0.5 MG/2 ML AMPUL.NEB. INHALATION (08:04)
[2024-09-27] MEDS: Iron Polysaccharide Complex 150 MG CAPSULE PO (08:34)
[2024-09-27] MEDS: Metoprolol(XL)Succ 100 MG Tablet PO ×2 (08:35→22:15)
[2024-09-27] MEDS: buPROPion (SR) 150 MG Tablet.SA PO ×2 (08:35→22:15)
[2024-09-27] MEDS: Pantoprazole Sodium 40 MG Tablet PO (08:35)
[2024-09-27] MEDS: NIFEdipine 90 MG Tablet PO (08:35)
[2024-09-27] MEDS: NIRAPARIB TOSYLATE PO (08:37)
[2024-09-27] MEDS: Heparin Injection (Vial) 5,000 UNIT/ML VIAL 5000 UNIT SC ×2 (09:52→22:16)
[2024-09-27] MEDS: Fluticasone 0.05% 1 SPRAY NASAL.SRY 2 SPRAY NASAL (09:52)
[2024-09-27] MEDS: Potassium Chloride Oral Tablet 20 MEQ 40 MEQ PO (13:08)
--- NOTE | 2024-09-27 15:36 | CASEMGMT ---
Social Work SW?to room to meet with patient for initial transition planning/care coordination?assessment. Pt's son was with pt during assessment. ?SW?introduced self and role at [facility].? Pt voices understanding and consents to?assessment.? Pt is A/Ox4 and answers all questions appropriately.?? Care providers, pharmacy, and demographics verified. PCP: Prachi Specialists: Ellis, oncology Edward, nephrology Preferred Pharmacy: [place] [place] [facility] Prescription Benefit:? yes Living Will/HPOA:? no LNOK: Son Tristin Young Living Arrangements: Pt lives alone in a two story apartment with 2 steps in. living room and kitchen on the first floor and bedroom and bathroom on the second floor. Pt's son lives nearby and checks on pt and assists as able. Within the last month pt has been having increased difficulty around the house and caring for herself. She is becoming weaker and is not able to care for herself. Pt states she is not able to use the steps and has been stuck upstairs in a lawn chair unable to get up and crawling to the bathroom. Transportation:?PT drives occasionally, but usually son drives DME: ? walker, cane, shower chair, cpap HHC/SNF: no prior HHC. [facility] prior and will not return there. PLAN: PT is understanding and agreeable that she cannot return home at this time and in this condition. Pt is agreeable to SNF. A list of SNF providers including quality and resource use data and consistent with the patient?s preferred geographic region, medical needs, and insurance network were provided from the [employer] Guide. PT and son requesting time to review list. SW will follow up on Sunday for preferences and to make referrals. Son and pt inquiring about care once pt returns home. SW explained [facility] and the [facility] program. Pt is interested in this and SW made referral to [facility]. SW to follow for dc planning. CRISTIANO Martinez
[2024-09-27 18:18] LABS: Anion Gap 15 (5-15); BUN 62 mg/dL (4-19); BUN/Creat Ratio 18.6 RATIO (10-20); Calcium 9.3 mg/dL (7.6-11.0); Carbon Dioxide 22.7 mmol/L (22.0-29.0); Chloride 96 mmol/L (96-108); Creatinine, Serum 3.32 mg/dL (0.70-1.20); EST Glomerular Filtration Rate 15 (>60); Glucose 119 mg/dL (70-99); Magnesium 1.4 mg/dL (1.5-2.2); Potassium 3.3 mmol/L (3.3-5.1); Sodium Level 134 mmol/L (133-145)
[2024-09-27] MEDS: Potassium Chloride Oral Tablet 20 MEQ 60 MEQ PO (22:15)
[2024-09-27] MEDS: Magnesium Sulfate 2 GM in Dextrose 5%-Water (100mL Bag) 100 ML IV (22:15)
[2024-09-27] MEDS: 0.9% Saline Lock 10 ML Syringe IV (22:16)
[2024-09-28] VITALS (11 sets, daily range): BP systolic 126–152; BP diastolic 56–78; PULSE 73–86; RESP 14–16; TEMP 36.6–37.2; O2SAT 97–100; BMI 41.3
--- NOTE | 2024-09-28 02:15 | CPS ---
pt brought her home cpap unit for use sleeping.
[2024-09-28] MEDS: hydrALAZINE 50 MG Tablet PO ×3 (06:14→21:40)
[2024-09-28 06:22] LABS: Absolute Lymphocyte Count 0.87 X10^3/uL (0.83-4.51); Absolute Neutrophil Count 6.5 X10^3/uL (2.0-7.7); Basophil# 0.01 X10^3/uL; Basophil% 0.1 % (0-1); Eosinophil# 0.09 X10^3/uL; Eosinophils% 1.1 % (0-5); Hematocrit 30.6 % (37-47); Hemoglobin 10.2 g/dL (12.0-15.0); Lymphocyte # 0.87 X10^3/ul (0.83-4.51); Lymphocyte % 10.3 % (19-41); Mean Corp Hgb Conc 33.3 g/dL (32-36); Mean Corpuscular Volume 95.9 fL (81-99); Mean Platelet Vol. 12.2 fl (6.2-12.0); Monocyte# 0.91 X10^3/uL; Monocyte% 10.7 % (0-10); NRBC Flagged by Analyzer 0 % (0-5); Neutrophil # 6.53 X10^3/uL (2.7-7.7); Neutrophil % 77.1 % (47-70); Platelet Count 198 K/mm3 (150-450); RBC Distribution Width CV 14.1 % (11.6-14.6); RBC Distribution Width SD 49.7 fl (35.1-43.9); Red Blood Count 3.19 M/mm3 (4.2-5.4); White Blood Count 8.5 K/mm3 (4.4-11.0)
[2024-09-28 06:57] LABS: ALB/GLOB Ratio 0.8 RATIO (0.9-2.4); AST(SGOT) 23 U/L (<=31); Alanine Aminotransfer ALT/SGPT 15 U/L (<=34); Albumin, Serum 3.3 g/dL (3.4-4.8); Alkaline Phosphatase 101 U/L (35-104); Anion Gap 16 (5-15); BUN 60 mg/dL (4-19); BUN/Creat Ratio 20.2 RATIO (10-20); Calcium 9.7 mg/dL (7.6-11.0); Carbon Dioxide 20.6 mmol/L (22.0-29.0); Chloride 97 mmol/L (96-108); Creatinine, Serum 2.95 mg/dL (0.70-1.20); EST Glomerular Filtration Rate 17 (>60); Estimated Creatinine Clearance 23.62 ml/min (50-250); Globulin 4.2 g/dL (2.2-4.2); Glucose 114 mg/dL (70-99); Phosphorus 3.4 mg/dL (2.7-4.5); Potassium 3.7 mmol/L (3.3-5.1); Protein, Total 7.5 g/dL (5.9-8.4); Sodium Level 133 mmol/L (133-145); Total Bilirubin 0.54 mg/dL (0.00-1.30)
[2024-09-28] MEDS: Budesonide Respules 0.5 MG/2 ML AMPUL.NEB. INHALATION (08:04)
[2024-09-28] MEDS: Albuterol 2.5 MG/3 ML VIAL.NEB. INHALATION ×2 (08:04→13:22)
[2024-09-28] MEDS: Fluticasone 0.05% 1 SPRAY NASAL.SRY 2 SPRAY NASAL (09:06)
[2024-09-28] MEDS: Pantoprazole Sodium 40 MG Tablet PO (09:06)
[2024-09-28] MEDS: NIRAPARIB TOSYLATE PO (09:06)
[2024-09-28] MEDS: buPROPion (SR) 150 MG Tablet.SA PO ×2 (09:06→21:40)
[2024-09-28] MEDS: Iron Polysaccharide Complex 150 MG CAPSULE PO (09:06)
[2024-09-28] MEDS: NIFEdipine 90 MG Tablet PO (09:07)
[2024-09-28] MEDS: Heparin Injection (Vial) 5,000 UNIT/ML VIAL 5000 UNIT SC ×2 (09:07→21:40)
[2024-09-28] MEDS: Metoprolol(XL)Succ 100 MG Tablet PO ×2 (09:07→21:40)
[2024-09-28] MEDS: Acetaminophen 325 MG Tablet 650 MG PO (09:08)
--- NOTE | 2024-09-28 10:54 | PN.HOSP_ITS ---
Reason for Visit Reason for Visit: Diagnoses Acute kidney failure, unspecified (09/26/24) Other malaise (09/26/24) Other specified abnormal findings of blood chemistry (09/26/24) Subjective Subjective Persistent knee and ankle pain, has been noticing mild swelling over both her ankles Objective Data Objective Data Vital Signs: Vital Signs Temp Pulse Resp BP Pulse Ox O2 Del Method 97.8 F 81 14 152/67 H 97 Room Air 09/28/24 09:03 09/28/24 09:07 09/28/24 09:03 09/28/24 09:03 09/28/24 09:03 09/28/24 09:03 Oxygen Delivery Method Room Air Weight: 255 lb 11.779 oz Body Mass Index (BMI) 41.3 Intake & Output: Intake and Output for Last 24 Hours 09/26/24 09/27/24 09/28/24 23:59 23:59 23:59 Intake Total 987.5 / 987.5 2700 / 2820 284 / 284 Output Total 2150 / 2650 625 / 625 Balance 987.5 / 987.5 550 / 170 -341 / -341 Lab / Micro Data 09/28/24 05:29 09/28/24 05:29 Labs: Laboratory Results - last 24 hr 09/27/24 17:05: Sodium 134, Potassium 3.3, Chloride Direct 96, Carbon Dioxide 22.7, Anion Gap 15, BUN 62 H, Creatinine 3.32 H, Estim Creat Clear Calc 21.20 L, Est GFR (MDRD) Non-Af 15 L, BUN/Creatinine Ratio 18.6, Glucose 119 H, Calcium 9.3, Magnesium 1.4 L 09/28/24 05:29: WBC 8.5, RBC 3.19 L, Hgb 10.2 L, Hct 30.6 L, MCV 95.9, MCH 32.0, MCHC 33.3, RDW Std Deviation 49.7 H, RDW Coeff of [place]iet[place] 14.1, Plt Count 198, MPV 12.2 H, Immature Gran % (Auto) 0.700, Neut % (Auto) 77.1 H, Lymph % (Auto) 10.3 L, [place] % (Auto) 10.7 H, Eos % (Auto) 1.1, Baso % (Auto) 0.1, Absolute Neuts (auto) 6.5, Absolute Lymphs (auto) 0.87, Nucleated RBC % 0, Sodium 133, Potassium 3.7, Chloride Direct 97, Carbon Dioxide 20.6 L, Anion Gap 16 H, BUN 60 H, Creatinine 2.95 H, Estim Creat Clear Calc 23.62 L, Est GFR (MDRD) Non-Af 17 L , BUN/Creatinine Ratio 20.2 H, Glucose 114 H, Calcium 9.7, Phosphorus 3.4, Magnesium 2.0, Total Bilirubin 0.54, AST 23, ALT 15, Alkaline Phosphatase 101, Total Protein 7.5, Albumin 3.3 L, Globulin 4.2, Albumin/Globulin Ratio 0.8 L Micro: Microbiology 09/27/24 00:08 Mucosa - Nasopharyngeal SARS-CoV-2, Influenza & RSV (PCR) - Final Radiography Diagnostic Testing: Radiology Impression Echocardiogram 09/26/24 14:45 Interpretation Summary The estimated ejection fraction is 60 %. No evidence for diastolic dysfunction. Ordering Physician: Chemo Ramirez Referring Physician: Harmony Velarde Performed By: Anaid Alexandra RCS Physical Exam Const alert, oriented x3 and no apparent distress HEENT head/scalp atraumatic Eyes PERRL Resp normal respiratory effort GI normal to inspection, nondistended, normoactive bowel sounds Extremity normal to inspection Extremity Narrative: Mild nonpitting edema Neuro oriented x3 and CN's II-XII intact bilaterally Assessment & Plan Assessment/Plan (1) Elevated brain natriuretic peptide (BNP) level: (2) RUI (acute kidney injury): PLAN: Plan Patient with past medical history of type 2 diabetes, obesity, asthma, stage III CKD, hypertension 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 At the time of presentation she was noted to have an acute kidney injury with a baseline creatinine of 2.1 that increased to 3.8. At the time, BNP was also elevated. She still has a Ambrose catheter in place and would need a voiding trial before discharge. Still awaiting results of ultrasound kidney, there is suspicion for an postrenal cause for RUI. # RUI on CKD -Creatinine continues to improve, down trended to 2.9 -Possibly the etiology was prerenal given the improvement with fluid therapy -Renal ultrasound done, waiting for results -Will clamp the Ambrose's catheter tomorrow and give her a voiding trial # Urinary tract obstruction - Had difficulty in urine voiding at the time of admission -Will need voiding trial before discharge, presently tolerating Ambrose's well. #Hypokalemia -Likely medication associated as this given Lasix but the spironolactone was discontinued -Resolved # Severe knee pain # Suspected osteoarthritis - PT/ OT evaluation - CM evaluation regarding discharge and also support at home after discharge - ESR, CRP for tomorrow - Possible outpatient orthopedics evaluation for knee replacement #Prior ovarian cancer -Presently on niraparib -Disease in remission #Hypertension - Continue home medications #Type 2 diabetes - Monitor sugars
[2024-09-28] MEDS: oxyCODONE 5 MG Tablet PO (13:39)
[2024-09-29] VITALS (14 sets, daily range): BP systolic 127–156; BP diastolic 70–78; PULSE 71–77; RESP 16–22; TEMP 36.6–36.8; O2SAT 98–100; BMI 41.9
[2024-09-29] MEDS: hydrALAZINE 50 MG Tablet PO ×3 (05:55→20:31)
[2024-09-29] MEDS: Albuterol 2.5 MG/3 ML VIAL.NEB. INHALATION ×2 (06:54→18:50)
[2024-09-29] MEDS: Budesonide Respules 0.5 MG/2 ML AMPUL.NEB. INHALATION ×2 (06:54→18:50)
--- NOTE | 2024-09-29 10:01 | PCM.PN.HOSP ---
Subjective Subjective No issues overnight, feels better. States that her legs seem a little bit more swollen today after the IV fluids Objective Data Objective Data Vital Signs: Vital Signs Temp Pulse Resp BP Pulse Ox O2 Del Method 98.0 F 73 18 154/74 H 100 Room Air 09/29/24 03:33 09/29/24 05:55 09/29/24 03:33 09/29/24 05:55 09/29/24 03:33 09/29/24 03:33 Oxygen Delivery Method Room Air Weight: 259 lb 14.8 oz Body Mass Index (BMI) 41.9 Intake & Output: Intake and Output for Last 24 Hours 09/28/24 09/29/24 09/30/24 03:59 03:59 03:59 Intake Total 2924 / 2924 1230 / 1230 120 / 120 Output Total 2650 / 2650 1275 / 1275 600 / 600 Balance 274 / 274 -45 / -45 -480 / -480 Lab / Micro Data 09/28/24 05:29 09/28/24 05:29 Labs: Laboratory Results - last 24 hr 09/28/24 23:10: Urine Creatinine 52.90 Micro: Microbiology 09/27/24 00:08 Mucosa - Nasopharyngeal SARS-CoV-2, Influenza & RSV (PCR) - Final Radiography Diagnostic Testing: Radiology Impression Renal Ultrasound 09/26/24 15:51 IMPRESSION: Bilateral renal cysts. Reading Location: [facility] Physical Exam Narrative General: Alert, Oriented x3, Cooperative, No apparent distress HEENT: Atraumatic, PERRLA, EOMI, Normocephalic Oral: Moist Mucosa Neck: Supple, No JVD Lungs: Diminished, Normal air movement, No rhonchi, No wheeze, No rales Cardiovascular: Regular rate, Regular Rhythm, Normal S1, Normal S2, No murmurs Abdomen: Soft, Non Tender, Non-Distended, No Hepato-splenomegaly Extremities: Edema, Capillary Refill Less than 3 Seconds Skin: No rashes, No breakdown Musculoskeletal: No Tenderness to Palpation of Joints or Extremities Neurological: No focal neurological deficits, Motor Exam 5/5 strength throughout, Sensory exam intact to light touch and pain Psych/Mental Status: Normal Affect, Appropriate Assessment & Plan Assessment/Plan (1) Elevated brain natriuretic peptide (BNP) level: (2) RUI (acute kidney injury): PLAN: Plan 1. RUI on CKD 4/urinary tract obstruction ? Creatinine is improving on fluids, will continue to monitor ? Continue with Ambrose ? Renal ultrasound demonstrates bilateral renal cysts 2. Essential HTN ? Blood pressures are doing well ? Will monitor and make adjustments as necessary ? Continue with her home medications 3. Knee pain with osteoarthritis ? PT/OT ? If she does have difficulty moving may need the placement DVT: Heparin Charges/Coding Visit Charges Inpatient E&M: 72292 Subs Hosp L2
[2024-09-29] MEDS: Heparin Injection (Vial) 5,000 UNIT/ML VIAL 5000 UNIT SC ×2 (10:05→20:30)
[2024-09-29] MEDS: Iron Polysaccharide Complex 150 MG CAPSULE PO (10:05)
[2024-09-29] MEDS: NIFEdipine 90 MG Tablet PO (10:05)
[2024-09-29] MEDS: Pantoprazole Sodium 40 MG Tablet PO (10:06)
[2024-09-29] MEDS: Metoprolol(XL)Succ 100 MG Tablet PO ×2 (10:06→20:30)
[2024-09-29] MEDS: NIRAPARIB TOSYLATE PO (10:06)
[2024-09-29] MEDS: buPROPion (SR) 150 MG Tablet.SA PO ×2 (10:07→20:30)
--- NOTE | 2024-09-29 10:08 | CASEMGMT ---
SW met with patient and her son. Introduced self and role at [facility]. Patient and her son were able to review the jail list. Their 3 choices are as follows: [facility], [facility], and [facility]. SW let them know referrals will be made and SW will update them once SW hears back. SW asked Malissa to send a referral to [facility]. Jessie Delacruz JV BASEBALL COACH TOMAS
--- NOTE | 2024-09-29 10:13 | CASEMGMT ---
Addendum entered by Malissa Jameson 09/29/24 12:10: [facility] unable to determine acceptance at this time and would like updates sent once pain is managed. Malissa Jameson DC Planning Asst. Original Note: Discharge Planning Referral sent to [facility]. Malissa Jameson DC Planning Asst.
--- NOTE | 2024-09-29 12:17 | CASEMGMT ---
Discharge Planning Referral sent to [facility]. Malissa Jameson DC Planning Asst.
[2024-09-29] MEDS: Acetaminophen 325 MG Tablet 650 MG PO (14:24)
[2024-09-29] MEDS: oxyCODONE 5 MG Tablet PO (14:24)
--- NOTE | 2024-09-29 15:10 | CASEMGMT ---
Social Work SW met with pt and informed that [facility] do not have available beds. Referral has been sent to [facility]. SW spoke with pt regarding completing advance directives. Pt states she is not up to it today. SW will follow up as able. CRISTIANO Martinez
--- NOTE | 2024-09-29 15:41 | CHAPLAIN ---
Type of Pastoral Visit _x__ Initial Visit ___ Follow-up Visit ___ On-call Visit ___ General Patient Visit ___ Spiritual Assessment ___ Family Conference ___ Bereavement ___ Rapid Response ___ Code Blue ___ Other (describe below) Pastoral Care Referral From _x__ Patient ___ Family ___ Nurse ___ Physician ___ Car Wash Manager ___ Public Relations Coordinator ___ Other (describe below) Sacrament/Intervention _x__ Active listening ___ Anointing ___ Congregational ___ Bereavement ___ Communion _x__ Shirley exploration ___ _x__ Life review _x__ Prayer ___ Reconciliation ___ Sacrament of Sick _x__ Supportive presence ___ Wedding ___ Other (describe below) Pastoral Comments patient is welcoming and talkative; pt gives life review of her struggles and many family difficulties; pt has strong shirley in God and a good connection to a nail artist and shinto for support; son of patient is also a good caregiver; pt opened up about her life and the lessons learned; pt admitted that there are still wounds but she has approached it in a Congregation manner; prayer and presence appreciated
[2024-09-29 21:00] LABS: Bedside Glucose 106 mg/dL (74-106)
[2024-09-30] VITALS (7 sets, daily range): BP systolic 134–149; BP diastolic 61–82; PULSE 68–78; RESP 16–18; TEMP 36.6–36.8; O2SAT 95–100; BMI 41.9
[2024-09-30] MEDS: Acetaminophen 325 MG Tablet 650 MG PO (01:21)
[2024-09-30] MEDS: oxyCODONE 5 MG Tablet PO (01:22)
[2024-09-30] MEDS: hydrALAZINE 50 MG Tablet PO ×2 (06:14→09:57)
[2024-09-30 06:25] LABS: Absolute Lymphocyte Count 1.23 X10^3/uL (0.83-4.51); Absolute Neutrophil Count 5.8 X10^3/uL (2.0-7.7); Basophil# 0.04 X10^3/uL; Basophil% 0.5 % (0-1); Eosinophil# 0.24 X10^3/uL; Hemoglobin 9.5 g/dL (12.0-15.0); Lymphocyte # 1.23 X10^3/ul (0.83-4.51); Lymphocyte % 15.2 % (19-41); Mean Corp Hgb Conc 32.8 g/dL (32-36); Mean Corpuscular Volume 97.6 fL (81-99); Mean Platelet Vol. 11.8 fl (6.2-12.0); Monocyte# 0.74 X10^3/uL; Monocyte% 9.2 % (0-10); NRBC Flagged by Analyzer 0 % (0-5); Neutrophil # 5.75 X10^3/uL (2.7-7.7); Neutrophil % 71.1 % (47-70); Platelet Count 226 K/mm3 (150-450); RBC Distribution Width CV 14.5 % (11.6-14.6); RBC Distribution Width SD 51.7 fl (35.1-43.9); Red Blood Count 2.97 M/mm3 (4.2-5.4); White Blood Count 8.1 K/mm3 (4.4-11.0)
[2024-09-30 06:35] LABS: Anion Gap 12 (5-15); BUN 52 mg/dL (4-19); BUN/Creat Ratio 22.8 RATIO (10-20); Calcium 9.9 mg/dL (7.6-11.0); Carbon Dioxide 23.9 mmol/L (22.0-29.0); Chloride 98 mmol/L (96-108); Creatinine, Serum 2.29 mg/dL (0.70-1.20); EST Glomerular Filtration Rate 23 (>60); Glucose 104 mg/dL (70-99); Potassium 3.5 mmol/L (3.3-5.1); Sodium Level 133 mmol/L (133-145)
[2024-09-30] MEDS: Albuterol 2.5 MG/3 ML VIAL.NEB. INHALATION ×2 (07:17→09:50)
[2024-09-30] MEDS: Budesonide Respules 0.5 MG/2 ML AMPUL.NEB. INHALATION (07:17)
--- NOTE | 2024-09-30 09:33 | CASEMGMT ---
[facility] patient and HARIS asked that they start the pre-cert. HARIS notified patient. Plan: d/c to [facility] pending pre-cert. Jessie MARIN
[2024-09-30] MEDS: NIFEdipine 90 MG Tablet PO (09:57)
[2024-09-30] MEDS: Metoprolol(XL)Succ 100 MG Tablet PO (09:57)
[2024-09-30] MEDS: buPROPion (SR) 150 MG Tablet.SA PO (09:57)
[2024-09-30] MEDS: Pantoprazole Sodium 40 MG Tablet PO (09:57)
[2024-09-30] MEDS: Heparin Injection (Vial) 5,000 UNIT/ML VIAL 5000 UNIT SC (09:58)
[2024-09-30] MEDS: NIRAPARIB TOSYLATE PO (09:58)
[2024-09-30] MEDS: Iron Polysaccharide Complex 150 MG CAPSULE PO (09:58)
[2024-09-30] MEDS: Fluticasone 0.05% 1 SPRAY NASAL.SRY 2 SPRAY NASAL (09:58)
--- NOTE | 2024-09-30 10:18 | PCM.PN.HOSP ---
Subjective Subjective Resting comfortably on her home CPAP. Thinks that her legs are baseline and edematous Objective Data Objective Data Vital Signs: Vital Signs Temp Pulse Resp BP Pulse Ox O2 Del Method 97.9 F 73 16 142/73 H 99 Room Air 09/30/24 09:30 09/30/24 09:57 09/30/24 09:30 09/30/24 09:30 09/30/24 09:30 09/30/24 09:30 Oxygen Delivery Method Room Air Weight: 259 lb 11.272 oz Body Mass Index (BMI) 41.9 Intake & Output: Intake and Output for Last 24 Hours 09/29/24 09/30/24 10/01/24 03:59 03:59 03:59 Intake Total 1230 / 1230 760 / 760 Output Total 1275 / 1275 2700 / 2700 Balance -45 / -45 -1940 / -1940 Lab / Micro Data 09/30/24 05:02 09/30/24 05:02 Labs: Laboratory Results - last 24 hr 09/29/24 20:37: POC Glucose 106 09/30/24 05:02: WBC 8.1, RBC 2.97 L, Hgb 9.5 L, Hct 29.0 L, MCV 97.6, MCH 32.0, MCHC 32.8, RDW Std Deviation 51.7 H, RDW Coeff of Antonietta 14.5, Plt Count 226, MPV 11.8, Immature Gran % (Auto) 1.000 H, Neut % (Auto) 71.1 H, Lymph % (Auto) 15.2 L, [place] % (Auto) 9.2, Eos % (Auto) 3.0, Baso % (Auto) 0.5, Absolute Neuts (auto) 5.8, Absolute Lymphs (auto) 1.23, Nucleated RBC % 0, Sodium 133, Potassium 3.5, Chloride Direct 98, Carbon Dioxide 23.9, Anion Gap 12, BUN 52 H, Creatinine 2.29 H, Estim Creat Clear Calc 30.70 L, Est GFR (MDRD) Non-Af 23 L, BUN/Creatinine Ratio 22.8 H, Glucose 104 H, Calcium 9.9 Micro: Microbiology 09/27/24 00:08 Mucosa - Nasopharyngeal SARS-CoV-2, Influenza & RSV (PCR) - Final Physical Exam Narrative General: Alert, Oriented x3, Cooperative, No apparent distress HEENT: Atraumatic, PERRLA, EOMI, Normocephalic Oral: Moist Mucosa Neck: Supple, No JVD Lungs: Diminished, Normal air movement, No rhonchi, No wheeze, No rales Cardiovascular: Regular rate, Regular Rhythm, Normal S1, Normal S2, No murmurs Abdomen: Soft, Non Tender, Non-Distended, No Hepato-splenomegaly Extremities: Edema, Capillary Refill Less than 3 Seconds Skin: No rashes, No breakdown Musculoskeletal: No Tenderness to Palpation of Joints or Extremities Neurological: No focal neurological deficits, Motor Exam 5/5 strength throughout, Sensory exam intact to light touch and pain Psych/Mental Status: Normal Affect, Appropriate Assessment & Plan Assessment/Plan (1) Elevated brain natriuretic peptide (BNP) level: (2) RUI (acute kidney injury): PLAN: Plan 1. RUI on CKD 4/urinary tract obstruction ? Creatinine is improving on fluids, will continue to monitor ? Ambrose is out ? Renal ultrasound demonstrates bilateral renal cysts 2. Essential HTN ? Blood pressures are doing well ? Will monitor and make adjustments as necessary ? Continue with her home medications 3. Knee pain with osteoarthritis ? PT/OT ?Currently awaiting pre-CERT for SNF placement DVT: Heparin Charges/Coding Visit Charges Inpatient E&M: 12932 Subs Hosp L2
--- NOTE | 2024-09-30 13:36 | CASEMGMT ---
[facility] obtained auth to admit. Malissa Jameson DC Planning Asst.
--- NOTE | 2024-09-30 13:48 | TREXTCAR_ITS ---
Diet Diet Order/Speech Therapy: 09/26/24 15:51 Diet: Cardiac - Heart Healthy Food consistency:: Regular Liquid Consistency:: Regular/Thin Routine Orders/Code Status Routine Lab Work: CBC and BMP Code Status: Full Code DC O2, CPAP, BIPAP needs Home O2 Discharge instructions: No Therapies Physical Therapy: Eval and Treat Occupational Therapy: Eval and Treat Problem/Diagnosis (1) Elevated brain natriuretic peptide (BNP) level: Status: Acute Code(s): R79.89 - Other specified abnormal findings of blood chemistry (2) RUI (acute kidney injury): Status: Acute Code(s): N17.9 - Acute kidney failure, unspecified Plan 1. RUI on CKD 4/urinary tract obstruction ? Creatinine is improving on fluids, will continue to monitor ? Ambrose is out ? Renal ultrasound demonstrates bilateral renal cysts 2. Essential HTN ? Blood pressures are doing well ? Will monitor and make adjustments as necessary ? Continue with her home medications 3. Knee pain with osteoarthritis ? PT/OT ?Currently awaiting pre-CERT for SNF placement DVT: Heparin Allergies/Procedures Done in Hospital Allergies povidone-iodine (From Betadine) Allergy (Severe, Verified 09/26/24 11:33) Rash soap (From Betadine) Allergy (Severe, Verified 09/26/24 11:33) Rash Procedures: None Type of Care/Length of Stay Estimated LOS: Convalescent Care Less Than 30 days Type of Care Needed: Skilled Rehab Potential: Good Prognosis: Good Additional Orders/Day of Discharge Day of Discharge: 09/30/24 Dietary and Speech Recommendations Dietitian Recommendations/Changes: Continue cardiac diet. Will monitor weight, as available. Discharge Plan Admission Admit Date/Time: 09/26/24 14:37 Attending Provider: Jose Fernandez Primary Care Provider: Harmony Velarde Consulting Providers: Chemo Ramirez; Diana Crowell Discharge Orders/Prescriptions Prescriptions: Continued Zejula 100 mg capsule See Rx Instructions PO DAILY Rx Instructions: 200 mg (1 tablet) orally daily; (DME) blood pressure monitor Kit See Rx Instructions .MEDSUPPLY Qty: 1 0RF Rx Instructions: Check blood pressure daily for hypertension I10 cyclobenzaprine 10 mg tablet 5 mg PO HS PRN (Reason: muscle spasm) Qty: 20 0RF hydralazine 50 mg tablet 50 mg PO TID Zejula 200 mg tablet 200 mg PO DAILY loperamide 2 mg capsule 2 mg PO Q6H PRN (Reason: diarrhea) Qty: 30 2RF albuterol sulfate [Ventolin HFA] 90 mcg/actuation HFA aerosol inhaler 2 puff INHALATION Q4H PRN (Reason: shortness of breath or wheezing) Qty: 18 3RF ondansetron 8 mg tablet,disintegrating 8 mg PO Q8H PRN PRN (Reason: Nausea) 10 Days Qty: 30 3RF (DME) Cpap Mask See Rx Instructions .Route .MEDSUPPLY Qty: 1 0RF Rx Instructions: As directed polysaccharide iron complex [Ferrex 150] 150 mg iron capsule 150 mg PO DAILY Qty: 90 3RF (DME) Handicap Placard See Rx Instructions .ROUTE .MEDSUPPLY Qty: 1 0RF Rx Instructions: As directed, length of time 3 years metoprolol succinate 100 mg tablet extended release 24 hr 100 mg PO BID Qty: 180 1RF pantoprazole 40 mg tablet,delayed release (DR/EC) 40 mg PO DAILY Qty: 90 1RF potassium chloride [K-Tab] 20 mEq tablet extended release 20 meq PO BID Qty: 180 1RF budesonide-formoterol [Symbicort] 160-4.5 mcg/actuation HFA aerosol inhaler 2 puff INHALATION Q12H Qty: 10.2 3RF fluticasone propionate 50 mcg/actuation spray,suspension 2 spray intranasal DAILY Qty: 16 3RF Rx Instructions: USE 2 SPRAYS INTRANASALLY DAILY bupropion HCl 150 mg tablet sustained-release 12 hr 150 mg PO BID Qty: 180 1RF nifedipine 90 mg tablet extended release See Rx Instructions .ROUTE .COMPLEX Qty: 90 0RF Dose Instruction: TAKE 1 TABLET BY MOUTH DAILY Rx Instructions: TAKE 1 TABLET BY MOUTH DAILY Held hydrochlorothiazide 25 mg tablet See Rx Instructions .ROUTE .COMPLEX Qty: 90 0RF Hold Instructions: Resume on 10/02/24. Dose Instruction: TAKE 1 TABLET BY MOUTH DAILY Rx Instructions: TAKE 1 TABLET BY MOUTH DAILY Referrals / Follow Up: Harmony Velarde MD [Primary Care Provider] - Disposition Disposition (needs filled in before D/C Order can be placed): [facility] Facility
--- NOTE | 2024-09-30 14:11 | CASEMGMT ---
Patient was approved for [facility]. HARIS notified physician. SW completed a 7000 in [employer] system. Plan: d/c to [facility] under skilled level of care on a convalescent stay. Physicians will transport patient via cot as she is unable to stand and pivot or even get to a seated position on her own. Jessie Delacruz TELLER TOMAS
--- NOTE | 2024-09-30 14:55 | PCM.DC.SUM ---
Providers Date of Admission: 09/26/24 Primary Care Physician: Dr. Harmony Velarde MD Reason For Visit: RUI, CHF Diagnosis Discharge Diagnosis (1) Elevated brain natriuretic peptide (BNP) level: Status: Acute Code(s): R79.89 - Other specified abnormal findings of blood chemistry (2) RUI (acute kidney injury): Status: Acute Code(s): N17.9 - Acute kidney failure, unspecified Plan 1. RUI on CKD 4/urinary tract obstruction ? Creatinine is improving on fluids, will continue to monitor ? Ambrose is out ? Renal ultrasound demonstrates bilateral renal cysts 2. Essential HTN ? Blood pressures are doing well ? Will monitor and make adjustments as necessary ? Continue with her home medications 3. Knee pain with osteoarthritis ? PT/OT ?Currently awaiting pre-CERT for SNF placement DVT: Heparin Medications at Discharge Home Medications niraparib 100 mg capsule (Zejula) See Rx Instructions PO DAILY hx cervical cancer 01/12/21 blood pressure monitor #1 ea 08/16/21 Ventolin HFA 90 mcg/actuation aerosol inhaler (albuterol sulfate) 2 puff inhalation Q4H PRN shortness of breath or wheezing #18 grams 03/17/22 loperamide 2 mg capsule 2 mg PO Q6H PRN diarrhea #30 caps 03/17/22 ondansetron 8 mg disintegrating tablet 8 mg PO Q8H PRN PRN Nausea 10 days ##30 03/17/22 Cpap Mask #1 ea 05/02/23 polysaccharide iron complex 150 mg iron capsule (Ferrex) 150 mg PO DAILY #90 caps 04/03/24 Handicap Placard #1 ea 05/05/24 metoprolol succinate 100 mg tablet,extended release 24 hr 100 mg PO BID #180 tabs 05/29/24 pantoprazole 40 mg tablet,delayed release 40 mg PO DAILY #90 tabs 05/29/24 cyclobenzaprine 10 mg tablet 5 mg (1/2 x 10 mg) PO HS PRN muscle spasm #20 tabs 06/12/24 potassium chloride 20 mEq tablet,extended release (K-Tab) 20 meq PO BID #180 tabs 06/25/24 budesonide-formoterol HFA 160 mcg-4.5 mcg/actuation aerosol inhaler (Symbicort) 2 puff inhalation Q12H #10.2 grams 07/28/24 fluticasone propionate 50 mcg/actuation nasal spray,suspension 2 spray intranasal DAILY #16 grams 07/28/24 bupropion HCl 150 mg tablet,12 hr sustained-release 150 mg PO BID #180 TABLETS 09/16/24 hydrochlorothiazide 25 mg tablet See Rx Instructions .Route .COMPLEX #90 tabs 09/16/24 Held on 09/30/24. Instructions: Resume on 10/02/24. nifedipine 90 mg tablet,extended release See Rx Instructions .Route .COMPLEX #90 tabs 09/16/24 hydralazine 50 mg tablet 50 mg PO TID 09/26/24 niraparib 200 mg tablet (Zejula) 200 mg PO DAILY hx cervical cancer 09/26/24 Hospital Course Operations None Procedures 2-D Echocardiogram Summary of Care Provided Minutes Spent on Discharge: 35 Hospital Course: Per HPI: QUENTIN ALEXANDRE, is a 68 F who presents with weakness. Patient over the past few days has been very weak and has been crawling on the floor to go to the bathroom in her room. Over the past couple days she also notes that she has not been urinating but she states that she has been eating and drinking okay. Despite her crawling on the floor over the past few days, patient was not brought in until today. So in emergency room, patient was noted to have a creatinine of 3.89 with a baseline creatinine of 2.15 from September 10. Patient also had an elevated BNP of 1143. Patient was having lower extremity edema which she denies to me being any worse than at baseline. In the emergency room her chest x-ray did not show any pulmonary vascular congestion. Patient received 40 mg of IV furosemide and a Ambrose catheter was placed. Catheter had about 600 cc of dark urine. Hospital Course: 1. RUI on CKD 4/urinary tract obstruction ? Creatinine is improving on fluids, will continue to monitor ? Ambrose is out ? Renal ultrasound demonstrates bilateral renal cysts 09/30/2024: Renal function continues to improve with IV fluids and she appears to be back to her baseline. She is urinating without the Ambrose and over no postvoid residuals. If she does have urinary issues while at the long-term would recommend placement of a Ambrose and follow-up with urology as an outpatient. I discussed with her the plan for discharge to the long-term today and she expressed understanding of the risks and benefits of going to the long-term and would like to go today. 2. Essential HTN ? Blood pressures are doing well ? Will monitor and make adjustments as necessary ? Continue with her home medications 09/30/2024: Will hold her hydrochlorothiazide given her recent issues with dehydration for a couple of days I do recommend outpatient monitoring of her BMP 3. Knee pain with osteoarthritis ? 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 Since completing neoadjuvant chemotherapy she has remained on Zejula since 01/05/2021. Physical Exam Narrative General: Alert, Oriented x3, Cooperative, No apparent distress HEENT: Atraumatic, PERRLA, EOMI, Normocephalic Oral: Moist Mucosa Neck: Supple, No JVD Lungs: Diminished, Normal air movement, No rhonchi, No wheeze, No rales Cardiovascular: Regular rate, Regular Rhythm, Normal S1, Normal S2, No murmurs Abdomen: Soft, Non Tender, Non-Distended, No Hepato-splenomegaly Extremities: Edema, Capillary Refill Less than 3 Seconds Skin: No rashes, No breakdown Musculoskeletal: No Tenderness to Palpation of Joints or Extremities Neurological: No focal neurological deficits, Motor Exam 5/5 strength throughout, Sensory exam intact to light touch and pain Psych/Mental Status: Normal Affect, Appropriate Weight / BMI Weight Weight: 259 lb 11.272 oz Body Mass Index (BMI) 41.9 ABG / Lab / Microbiology Data 09/30/24 05:02 09/30/24 05:02 Laboratory: Laboratory Results - last 24 hr 09/29/24 20:37: POC Glucose 106 09/30/24 05:02: WBC 8.1, RBC 2.97 L, Hgb 9.5 L, Hct 29.0 L, MCV 97.6, MCH 32.0, MCHC 32.8, RDW Std Deviation 51.7 H, RDW Coeff of Antonietta 14.5, Plt Count 226, MPV 11.8, Immature Gran % (Auto) 1.000 H, Neut % (Auto) 71.1 H, Lymph % (Auto) 15.2 L, [place] % (Auto) 9.2, Eos % (Auto) 3.0, Baso % (Auto) 0.5, Absolute Neuts (auto) 5.8, Absolute Lymphs (auto) 1.23, Nucleated RBC % 0, Sodium 133, Potassium 3.5, Chloride Direct 98, Carbon Dioxide 23.9, Anion Gap 12, BUN 52 H, Creatinine 2.29 H, Estim Creat Clear Calc 30.70 L, Est GFR (MDRD) Non-Af 23 L, BUN/Creatinine Ratio 22.8 H, Glucose 104 H, Calcium 9.9 Microbiology: Microbiology 09/27/24 00:08 Mucosa - Nasopharyngeal SARS-CoV-2, Influenza & RSV (PCR) - Final D/C Instructions DC O2, CPAP, BIPAP Needs PSN CPAP & BiPAP: BiPAP & CPAP Settings per PSN Mode CPAP 09/28/24 02:15 Home O2 Discharge instructions: No Meaningful Use Info Meaningful Use Meaningful Use Diagnoses (Choose all that apply): None applicable Ischemic Stroke Statin Dosing Therapy Reference: STATIN DOSE THERAPY REFERENCE: * Patients > 75 years receive moderate or high dose statin therapy. * Patients 75 years or YOUNGER should receive HIGH intensity statin dose unless contraindicated. You will be required to document reason for non-treatment if statin daily dose does not meet guidelines. HIGH DOSE STATIN THERAPY DAILY Atorvastatin > than or = to 40 mg Rosuvastatin > than or = to 20 mg Amlodipine + Atorvastatin > than or = to 2.5/40 mg Ezetimibe + Simvastatin 10/80 mg Simvastatin 80mg Discharge Plan Admission Admit Date/Time: 09/26/24 14:37 Attending Provider: Jose Fernandez Primary Care Provider: Harmony Velarde Consulting Providers: Chemo Ramirez; Diana Crowell Discharge Orders/Prescriptions Prescriptions: Continued Zejula 100 mg capsule See Rx Instructions PO DAILY Rx Instructions: 200 mg (1 tablet) orally daily; (DME) blood pressure monitor Kit See Rx Instructions .MEDSUPPLY Qty: 1 0RF Rx Instructions: Check blood pressure daily for hypertension I10 cyclobenzaprine 10 mg tablet 5 mg PO HS PRN (Reason: muscle spasm) Qty: 20 0RF hydralazine 50 mg tablet 50 mg PO TID Zejula 200 mg tablet 200 mg PO DAILY loperamide 2 mg capsule 2 mg PO Q6H PRN (Reason: diarrhea) Qty: 30 2RF albuterol sulfate [Ventolin HFA] 90 mcg/actuation HFA aerosol inhaler 2 puff INHALATION Q4H PRN (Reason: shortness of breath or wheezing) Qty: 18 3RF ondansetron 8 mg tablet,disintegrating 8 mg PO Q8H PRN PRN (Reason: Nausea) 10 Days Qty: 30 3RF (DME) Cpap Mask See Rx Instructions .Route .MEDSUPPLY Qty: 1 0RF Rx Instructions: As directed polysaccharide iron complex [Ferrex 150] 150 mg iron capsule 150 mg PO DAILY Qty: 90 3RF (DME) Handicap Placard See Rx Instructions .ROUTE .MEDSUPPLY Qty: 1 0RF Rx Instructions: As directed, length of time 3 years metoprolol succinate 100 mg tablet extended release 24 hr 100 mg PO BID Qty: 180 1RF pantoprazole 40 mg tablet,delayed release (DR/EC) 40 mg PO DAILY Qty: 90 1RF potassium chloride [K-Tab] 20 mEq tablet extended release 20 meq PO BID Qty: 180 1RF budesonide-formoterol [Symbicort] 160-4.5 mcg/actuation HFA aerosol inhaler 2 puff INHALATION Q12H Qty: 10.2 3RF fluticasone propionate 50 mcg/actuation spray,suspension 2 spray intranasal DAILY Qty: 16 3RF Rx Instructions: USE 2 SPRAYS INTRANASALLY DAILY bupropion HCl 150 mg tablet sustained-release 12 hr 150 mg PO BID Qty: 180 1RF nifedipine 90 mg tablet extended release See Rx Instructions .ROUTE .COMPLEX Qty: 90 0RF Dose Instruction: TAKE 1 TABLET BY MOUTH DAILY Rx Instructions: TAKE 1 TABLET BY MOUTH DAILY Held hydrochlorothiazide 25 mg tablet See Rx Instructions .ROUTE .COMPLEX Qty: 90 0RF Hold Instructions: Resume on 10/02/24. Dose Instruction: TAKE 1 TABLET BY MOUTH DAILY Rx Instructions: TAKE 1 TABLET BY MOUTH DAILY Referrals / Follow Up: Harmony Velarde MD [Primary Care Provider] - Disposition Disposition (needs filled in before D/C Order can be placed): [facility] Facility Charges/Coding Visit Charges Inpatient E&M: 98692 Disch Hosp >30min
--- NOTE | 2024-09-30 14:58 | CASEMGMT ---
Discharge Planning Discharge orders, signed med list, and transport time sent to [facility]. Physicians will transport patient by cot at 5:30p. Nursing, SW, pt, and her son (Tristin) updated. Malissa Jameson DC Planning Asst.
== END 2024-09-30 16:21 | disposition skilled nursing facility (03) | DRG 683 ==
LOC: ED 13:50 → PCU 14:46
PROVIDERS: Internal Medicine; Emergency Provider Emergency Medicine; PCP Internal Medicine; Visit Provider Family Medicine
DX: N17.9 Acute kidney failure, unspecified (principal); Z68.41 Body mass index [BMI] 40.0-44.9, adult; E11.22 Type 2 diabetes mellitus with diabetic chronic kidney disease; N18.4 Chronic kidney disease, stage 4 (severe); J45.909 Unspecified asthma, uncomplicated; I12.9 Hypertensive chronic kidney disease with stage 1 through stage 4 chronic kidney disease, or unspecified chronic kidney disease; E66.01 Morbid (severe) obesity due to excess calories; I89.0 Lymphedema, not elsewhere classified; E87.6 Hypokalemia; K21.9 Gastro-esophageal reflux disease without esophagitis; M17.0 Bilateral primary osteoarthritis of knee; G47.33 Obstructive sleep apnea (adult) (pediatric); N13.9 Obstructive and reflux uropathy, unspecified; R53.81 Other malaise; Z90.710 Acquired absence of both cervix and uterus; Z87.891 Personal history of nicotine dependence; Z79.899 Other long term (current) drug therapy; Z98.51 Tubal ligation status; R79.89 Other specified abnormal findings of blood chemistry; Z85.43 Personal history of malignant neoplasm of ovary; Z90.722 Acquired absence of ovaries, bilateral; Z79.51 Long term (current) use of inhaled steroids; Z99.89 Dependence on other enabling machines and devices; Z85.89 Personal history of malignant neoplasm of other organs and systems; Z92.21 Personal history of antineoplastic chemotherapy
CPT/HCPCS: 36415; 36591; 51702; 71045; 76770; 80048; 80053; 80076; 81001; 82570; 82962; 83735; 83880; 84100; 85025; 87631; 93005; 93306; 94640; 97162; 97166; 97530; 99285; A4216; J1940

== ENCOUNTER → 2025-01-08 | Outpatient (CLI) | payer MEDICARE, MEDICAID, SELFPAY ==
--- NOTE | 2025-01-08 08:37 | MRI_ITS ---
PROCEDURE: BRAIN W/WO CONTRAST 01/08/2025 REASON FOR EXAM: OVARIAN CA-HX OF KIDNEY DISEASE TECHNIQUE: Routine brain MRI without and with intravenous contrast. Multiplanar and multisequence images were obtained. CONTRAST: Clariscan VOLUME: 24 mL COMPARISON: 11/03/2022. FINDINGS: Mild diffuse cortical atrophy. Confluent T2 hyperintense foci in the periventricular and subcortical white matter suggestive of moderate to severe chronic ischemic white matter disease. No abnormal postcontrast enhancement is noted. Unchanged right frontal and temporal chronic encephalomalacia. Mild bilateral mastoid effusions. The ventricles and extra-axial spaces are normal for the patient's age. No acute abnormality is identified in the basal ganglia and thalami. No acute abnormality is identified in the brainstem. No acute abnormality is identified in the cerebellum. There is no midline shift or brain herniation. There is no demonstrated extra-axial, intraparenchymal, or intraventricular hemorrhage. There are no abnormal intra-or extra-axial fluid collections. There are no areas of restricted diffusion to suggest acute ischemia. The cerebellopontine angles, internal auditory canals and the cisternal portions of the acoustical-facial nerves are unremarkable. Unremarkable exam of the skull. Normal soft tissue structures. Moderate chronic mucosal inflammatory changes of the frontal, sphenoid sinuses and ethmoid air cells. The visualized portions of the orbits are unremarkable. MRI/Brain W/WO Contrast IMPRESSION: Mild diffuse cortical atrophy. Confluent T2 hyperintense foci in the periventricular and subcortical white mat ter suggestive of moderate to severe chronic ischemic white matter disease. No abnormal postcontrast enhancement is noted. Unchanged right frontal and temporal chronic encephalomalacia. Mild bilateral mastoid effusions. Reading Location[facility]
== END | disposition home or self-care (01) ==
PROVIDERS: PCP Internal Medicine; Referring Provider Internal Medicine Medical Oncology; Visit Provider Internal Medicine Medical Oncology
DX: C56.2 Malignant neoplasm of left ovary (principal); R26.2 Difficulty in walking, not elsewhere classified
CPT/HCPCS: 70553; A9575; A4216

== ENCOUNTER → 2025-03-03 | Outpatient (CLI) | payer MEDICARE, MEDICAID, SELFPAY ==
--- NOTE | 2025-03-03 14:29 | RAD_ITS ---
PROCEDURE: Right KNEE 4 OR MORE VIEWS 03/03/2025 REASON FOR EXAM: Right knee PAIN TECHNIQUE: Right KNEE 4 OR MORE VIEWS COMPARISON: None. FINDINGS: Bones: No acute bony abnormalities. Joints: Multi compartmental joint space narrowing with sclerosis and marginal osteophytes. Effusion: Small knee effusion. Soft tissues: No soft tissue abnormalities. RAD/Knee 4 or More Views IMPRESSION: Severe osteoarthrosis of the right knee. Reading Location: [id number]
--- NOTE | 2025-03-03 14:31 | RAD_ITS ---
PROCEDURE: Left KNEE 4 OR MORE VIEWS 03/03/2025 REASON FOR EXAM: Left KNEE PAIN TECHNIQUE: Left KNEE 4 OR MORE VIEWS COMPARISON: None FINDINGS: Bones: No acute bony abnormalities. Joints: Multi compartmental joint space narrowing with sclerosis and marginal osteophytes. Effusion: Small knee effusion. Soft tissues: No soft tissue abnormalities. RAD/Knee 4 or More Views IMPRESSION: Osteoarthritis of the left knee. Small knee effusion. Reading Location: [id number]
== END | disposition home or self-care (01) ==
LOC: RAD 14:29
PROVIDERS: PCP Internal Medicine Medical Oncology; Visit Provider Internal Medicine Medical Oncology
DX: R26.2 Difficulty in walking, not elsewhere classified (principal); M25.561 Pain in right knee; M25.562 Pain in left knee
CPT/HCPCS: 73564

== ENCOUNTER → 2025-06-01 | Outpatient (CLI) | payer MEDICARE, MEDICAID, SELFPAY ==
--- NOTE | 2025-06-01 09:52 | CT_ITS ---
PROCEDURE: CT CHEST, ABD, PEL W/CONTRAST 06/01/2025 REASON FOR EXAM: OVARIAN CA-IV ONLY TECHNIQUE: Chest, abdomen and pelvis CT with intravenous contrast. Coronal and Sagittal reconstruction series were provided. One or more dose reduction techniques were used (e.g., Automated exposure control, adjustment of the mA and/or kV according to patient size, use of iterative reconstruction technique. PATIENT PREPARATION: Per protocol ORAL CONTRAST TYPE: None. CONTRAST: Isovue 370 VOLUME: 100mL RADIATION DOSE SUMMARY: CTDlvol: 25 mGy DLP: 2259 mGycm COMPARISON: None FINDINGS: CT CHEST: Hardware: A right-sided port a catheter is seen with the tip in the superior vena cava. Lymph nodes: No suspicious lymph nodes are seen. Heart and Vasculature: The heart is nonenlarged. Coronary artery calcification. Atherosclerotic calcifications of the thoracic aorta. Pulmonary arteries are unremarkable. Lungs and Airways: The lungs are clear. Pleura: No evidence of pleural effusion. Bones: Degenerative changes of the thoracic spine. Increased kyphosis. CT ABDOMEN/PELVIS: Liver: Mild degree of central intrahepatic biliary ductal dilatation. Gallbladder: Multiple gallstones are seen within the gallbladder lumen. Mild degree of gallbladder wall thickening and findings suggestive of small amount of pericholecystic fluid. Spleen: Normal size. Pancreas: Diffuse fatty atrophy. Adrenals: Right adrenal nodule consistent with an adenoma Kidneys: Small bilateral renal cysts. Bladder: Unremarkable. Reproductive Organs: Status post hysterectomy. Bowel: Colonic diverticulosis without diverticulitis. Appendix: Not identified. Lymph nodes: Unremarkable. Vasculature: Extensive calcification of the abdominal aorta and its major visceral branches. Peritoneum / Retroperitoneum: Unremarkable Bones: Mild degenerative changes. Sclerosis of the right iliac bone at the level of the right sacroiliac joint. This is unchanged from prior study dated August 05, 2020. CT/CT Chest, Abd, Pel w/Contrast IMPRESSION: No evidence of metastatic disease. Multiple gallstones. Mild degree of gallbladder wall thickening suggestive of small amount of pericholecystic fluid. Mild degree of central intrahepatic biliary ductal dilatation. Stable sclerosis of the right iliac bone at the level of the right sacroiliac j oint. Multiple bilateral renal cysts. Reading Location: [id number]
--- NOTE | 2025-06-01 09:52 | CT_ITS ---
PROCEDURE: SOFT TISSUE NECK WITH CONTRAST 06/01/2025 REASON FOR EXAM: OVARIAN CA TECHNIQUE: Procedure Code: CTNEW Modality: CT Procedure: SOFT TISSUE NECK WITH CONTRAST CONTRAST: Isovue 370 VOLUME: 79 mL One or more dose reduction techniques were used (e.g., Automated exposure control, adjustment of the mA and/or kV according to patient size, use of iterative reconstruction technique). RADIATION DOSE SUMMARY: CTDlvol: 64 mGy DLP: 2259 mGycm COMPARISON: None FINDINGS: Airway: Midline and patent. Salivary glands: Unremarkable. Lymph nodes: No cervical lymphadenopathy. Thyroid: Heterogeneous, small nodular foci in both lobes and at the isthmus. Vasculature: The timing is more related to the jugular vein rather than the arteries. Atherosclerosis of the carotid bulb and proximal internal carotid arteries bilaterally. Atherosclerosis in the cavernous and supraclinoid internal carotid arteries. Orbits: Unremarkable Paranasal sinuses and mastoids: Clear Lung apices: Clear Upper mediastinum: Clear Bones: Mild disc space narrowing C3/4, C5/6, C6/7 with uncinate spurring. Bilateral facet hypertrophy midcervical spine. Other: Right Port-A-Cath is in place. CT/Soft Tissue Neck WITH Contrast IMPRESSION: 1. No mass or lymphadenopathy. 2. Heterogeneous, nodular thyroid gland. If desired, consider thyroid ultraso und on a nonemergent basis. 3. Degenerative changes cervical spine. Reading Location: [id number]
[2025-06-01 10:07] VITALS: BP 152/113; PULSE 90; RESP 18; O2SAT 100; BMI 36.5
[2025-06-01] MEDS: 0.9% Normal Saline (500mL Bag) 500 ML IV (10:19)
[2025-06-01] MEDS: 0.9% Saline Lock 10 ML Syringe IV (11:30)
== END | disposition home or self-care (01) ==
LOC: CT 09:50
PROVIDERS: PCP Internal Medicine; Referring Provider Internal Medicine Medical Oncology; Visit Provider Internal Medicine Medical Oncology
DX: C56.2 Malignant neoplasm of left ovary (principal)
CPT/HCPCS: 70491; 71260; 74177; Q9967; A4216

== ENCOUNTER 2025-06-27 14:50 | Observation (INO) | payer MEDICARE, MEDICAID, SELFPAY ==
[2025-06-27] VITALS (10 sets, daily range): BP systolic 114–146; BP diastolic 69–87; PULSE 75–95; RESP 14–23; TEMP 36.6–37.2; O2SAT 84–100; BMI 34.7; BMI 34.3
--- NOTE | 2025-06-27 15:09 | EKG12_ITS ---
Test Reason : Blood Pressure : */* mmHG Vent. Rate : 87 BPM Atrial Rate : 87 BPM P-R Int : 126 ms QRS Dur : 136 ms QT Int : 392 ms P-R-T Axes : 63 -52 60 degrees QTcB Int : 471 ms Normal sinus rhythm Left axis deviation Non-specific intra-ventricular conduction block Minimal voltage criteria for LVH, may be normal variant ( Brady product ) Cannot rule out Anterior infarct , age undetermined Abnormal ECG Confirmed by RAMIRO MELCHOR ([id number]), make up editor FEDERICO VELASQUEZ ([id number]) on 06/29/2025 6:43:08 AM Referred By: Confirmed By: RAMIRO MELCHOR
--- NOTE | 2025-06-27 15:09 | RAD_ITS ---
PROCEDURE: KNEE 4 OR MORE VIEWS 06/27/2025 REASON FOR EXAM: ATRAUMATIC RIGHT KNEE PAIN TECHNIQUE: Procedure Code: RADKN Modality: DX Procedure: KNEE 4 OR MORE VIEWS Laterality: Right COMPARISON: Right knee radiograph dated 03/03/2025 FINDINGS: Bones: No definitive displaced fracture is identified. Joints: Severe degenerative changes. Effusion: Moderate joint effusion. Soft tissues: Soft tissue swelling. RAD/Knee 4 or More Views IMPRESSION: Soft tissue swelling and moderate right knee effusions are new since prior stud y. No definitive acute Osseous abnormality. Severe tricompartmental osteoarthritis of the right knee. Reading Location: [facility]
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
[2025-06-27] MEDS: 0.9% Normal Saline (1000mL) 1,000 ML 1000 ML IV (15:24)
[2025-06-27 15:29] LABS: Hematocrit 27.6 % (37-47); Hemoglobin 8.9 g/dL (12.0-15.0); Immature Granulocytes Count 0.050 X10^3/uL (0.0-0.0); Mean Corp Hgb Conc 32.2 g/dL (32-36); Mean Corpuscular Volume 103.4 fL (81-99); Mean Platelet Vol. 12.0 fl (6.2-12.0); NRBC Flagged by Analyzer 0 % (0-5); POSITIVE MORPHOLOGY YES; Platelet Count 183 K/mm3 (150-450); RBC Distribution Width CV 18.4 % (11.6-14.6); RBC Distribution Width SD 68.7 fl (35.1-43.9); Red Blood Count 2.67 M/mm3 (4.2-5.4); White Blood Count 7.9 K/mm3 (4.4-11.0)
--- NOTE | 2025-06-27 15:35 | RAD_ITS ---
PROCEDURE: CHEST PA AND LATERAL 06/27/2025 REASON FOR EXAM: WEAKNESS TECHNIQUE: Procedure Code: RADCXR Modality: DX Procedure: CHEST PA AND LATERAL COMPARISON: 09/26/24 FINDINGS: Right chest port. Mild pulmonary vascular congestion and interstitial edema. Right lower lobe opacity likely atelectasis although early stages of pneumonia not excluded. No pleural effusion or pneumothorax. Cardiac silhouette is stable. Calcified aortic arch. No acute fracture. RAD/Chest PA and Lateral IMPRESSION: Mild pulmonary vascular congestion and interstitial edema. Right lower lobe opa city likely atelectasis although early stages of pneumonia not excluded. Reading Location: [id number]
--- OUTSIDE RECORDS SUMMARY | 2025-06-27 15:37 | XMS RPT_ITS | CCD ---
Author Organization [facility] Care Team Providers Care Artillery Specialist Name Role Phone Stephie Velarde Primary Care Provider Dr. Stephie Velarde Primary Care Provider [phone] Dr. Stephie Velarde Attending Provider [phone] Dr. Stephie Velarde Referring Provider [phone] Dr. David Corral Attending Provider Stephie Velarde MD Primary Care Provider [phone] Dr. Stephie Velarde Primary Care Provider [phone] Dr. Stephie Velarde Attending Provider [phone] Dr. Stephie Velarde Referring Provider [phone] Dr. David Corral Attending Provider Dr. Gary Hussein Attending Provider Dr. David Corral Referring Provider Stephie Velarde MD Primary Care Provider [phone] STEPHIE VELARDE Referring Unavailable STEPHIE VELARDE Primary Care Unavailable STEPHIE VELARDE Primary Care Unavailable Prachi ZIEGLER, Ifijeleo M Primary Care Provider Dr. Stephie Velarde MD Primary Care Provider Dr. Stephie Velarde MD Attending Provider Prachi ZIEGLER, Dr. Antunez Referring Provider Dangelo CONNELLY-CBerna Attending Provider Peterson CRAFT, Dr. Rush Emergency Provider Ashley CRAFT, Dr. Mclain Admit Provider Ashley CRAFT, Dr. Mclain Other Provider Jim ZIEGLER, Dr. Jose Haines Attending Provider Socrates ZIEGLER, Dr. Ortiz Other Provider Unavailab le Ashley CRAFT, Dr. Mclain Attending Provider Socrates ZIEGLER, Dr. Ortiz Attending Provider Kati Loja MD, Dr. Cano Attending Provider Jim ZIEGLER, Dr. Jose Haines Other Provider Dr. David Corral MD Attending Provider Prachi ZIEGLER, Dr. Antunez Primary Care Provider Prachi ZIEGLER, Dr. Antunez Referring Provider Dr. David Corral MD Referring Provider Aravind Carey MD Unavailable [phone] ERYN LUTZ Attending Unavailable CHELSEY, ERYN Referring Unavailable OLEGHE, IFIJEN Primary Care Unavailable ARAVIND CAREY Attending Unavailable ARAVIND CAREY Referring Unavailable OLEGHE, IFIJEN Primary Care Unavailable ADA BLACKMANI Attending Unavailable OLEGHE, IFIJEN Primary Care Unavailable JUAN BRICE Attending Unavailable OLEGHE, IFIJEN Primary Care Unavailable ARAVIND CAREY Attending Unavailable CHELSEY, ERYN Referring Unavailable OLEGHE, IFIJEN Primary Care Unavailable JUAN BRICE Attending Unavailable LORETO LIA Referring Unavailable OLEGHE, IFIJEN Primary Care Unavailable KOLVINEV, EDUIN Attending Unavailable CHIDI, EDUIN Referring Unavailable OLEGHE, IFIJEN Primary Care Unavailable BIGG PAN Attending Unavailable OLEGHE, IFIJEN Primary Care Unavailable EDUIN BLACKMAN Attending Unavailable EDUIN BLACKMAN Referring Unavailable KATIE VELARDE Primary Care Unavailable Prachi ZIEGLER, Dr. Antunez Primary Care Provider Prachi ZIEGLER, Dr. Antunez Referring Provider Ellis ZIEGLER, Dr. Hernandez Attending Provider Ellis ZIEGLER, Dr. Hernandez Referring Provider Prachi ZIEGLER, Dr. Antunez Primary Care Provider Prachi ZIEGLER, Dr. Antunez Referring Provider Ellis ZIEGLER, Dr. Hernandez Attending Provider Ellis ZIEGLER, Dr. Hernandez Primary Care Provider Prachi ZIEGLER, Dr. Antunez Attending Provider Prachi ZIEGLER, Dr. Antunez Primary Care Provider Prcahi ZIEGLER, Dr. Antunez Referring Provider Ellis ZIEGLER, Dr. Hernandez Attending Provider Ellis ZIEGLER, Dr. Hernandez Primary Care Provider Prachi ZIEGLER, Dr. Antunez Attending Provider Dangelo LEAD ATG DEVELOPER-C, Berna Attending Provider Prachi ZIEGLER, Dr. Antunez Primary Care Physician Ellis ZIEGLER, Dr. Hernandez Attending Physician Ellis ZIEGLER, Dr. Hernandez Primary Care Physician Prachi ZIEGLER, Dr. Antunez Attending Physician Dangelo LEAD ATG DEVELOPER-C, Berna Attending Physician Ungeregita LEAD ATG DEVELOPER-CDarlene Attending Physician Prachi ZIEGLER, Dr. Antunez Primary Care Physician Ellis ZIEGLER, Dr. Hernandez Attending Physician Prachi ZIEGLER, Dr. Antunez Referring Provider Bebo Faith Attending Unavailable Oleghe, Efewongbe Referring Unavailable Oleghe, Efewongbe Primary Care Unavailable David Corral Attending Unavailable David Corral Referring Unavailable Oleghe, Efewongbe Primary Care Unavailable Chemo Ramirez Consulting Unavailable Chemo Ramirez Admitting Unavailable Jose Fernandez Attending Unavailable Oleghe, Efewongbe Primary Care Unavailable Diana Crowell Consulting Unavailable Oleghe, Efewongbe Referring Unavailable Oleghe, Efewongbe Primary Care Unavailable Darlene Chin Attending Unavailable Oleghe, Efewongbe Primary Care Unavailable David Corral Referring Unavailable David Corral Attending Unavailable Oleghe, Efewongbe Referring Unavailable Oleghe, Efewongbe Primary Care Unavailable David Corral Attending Unavailable Oleghe, Efewongbe Referring Unavailable Oleghe, Efewongbe Attending Unavailable Oleghe, Efewongbe Primary Care Unavailable Diana Crowell Attending Unavailable Chemo Ramirez Consulting Unavailable Chemo Ramirez Admitting Unavailable Oleghe, Efewongbe Primary Care Unavailable Diana Crowell Consulting Unavailable Oleghe, Efewongbe Referring Unavailable David Corral Attending Unavailable Oleghe, Efewongbe Primary Care Unavailable Oleghe, Efewongbe Referring Unavailable David Corral Attending Unavailable Oleghe, Efewongbe Primary Care Unavailable Oleghe, Efewongbe Referring Unavailable David Corral Attending Unavailable Oleghe, Efewongbe Primary Care Unavailable Oleghe, Efewongbe Attending Unavailable Terranceghe, Efewongbe Referring Unavailable David Corral Primary Care Unavailable Oleghe, Efewongbe Primary Care Unavailable Oleghe, Efewongbe Referring Unavailable David Corral Attending Unavailable Jose Fernandez Attending Unavailable Jose Fernandez Consulting Unavailable Chemo Ramirez Attending Unavailable Oleghe, Efewongbe Primary Care Unavailable Jerome Loja Attending UnavailDavid Arguello Attending Unavailable Oleghe, Efewongbe Referring Unavailable Oleghe, Efewongbe Primary Care Unavailable Oleghe, Efewongbe Referring Unavailable Oleghe, Efewongbe Primary Care Unavailable Dangelo LEAD ATG DEVELOPER, Berna Attending Unavailable David Corral Referring Unavailable David Corral Primary Care Unavailable Dangelo LEAD ATG DEVELOPER, Berna Attending Unavailable David Corral Attending Unavailable David Corral Referring Unavailable David Corral Primary Care Unavailable Oleghe, Efewongbe Primary Care Unavailable Oleghe, Efewongbe Referring Unavailable Dangelo LEAD ATG DEVELOPER, Berna Attending Unavailable Oleghe, Efewongbe Referring Unavailable Oleghe, Efewongbe Primary Care Unavailable Dangelo LEAD ATG DEVELOPER, Berna Attending Unavailable Oleghe, Efewongbe Referring Unavailable Oleghe, Efewongbe Primary Care Unavailable Dangelo LEAD ATG DEVELOPER, Berna Attending Unavailable Ivan Salazar Attending Unavailable Oleghe, Efewongbe Primary Care Unavailable Oleghe, Efewongbe Attending Unavailable Oleghe, Efewongbe Referring Unavailable Oleghe, Efewongbe Primary Care Unavailable Oleghe, Efewongbe Primary Care Unavailable Oleghe, Efewongbe Referring Unavailable David Corral Attending Unavailable Oleghe, Efewongbe Referring Unavailable David Corral Attending Unavailable Oleghe, Efewongbe Primary Care Unavailable Oleghe, Efewongbe Attending Unavailable Oleghe, Efewongbe Referring Unavailable Oleghe, Efewongbe Primary Care Unavailable David Corral Attending Unavailable Ellis, David Primary Care Unavailable Allergies Allergy Classification Reported Allergen(s) Allergy Type Date of Onset Reaction(s) Facility Povidone-Iodine (1 source) Povidone-Iodine Drug Allergy 7 Itching [facility] Work Phone: (20 sources) Iodine Drug Allergy 0 Itching [facility] Work Phone: (20 sources) Seasonal allergy Propensity to adverse reactions to substance 1 [facility] Work Phone: (20 sources) Povidone-Iodine ; Translations: [POVIDONE-IODIN E] Drug Allergy 7 Itching [facility] Work Phone: (20 sources) soap; Translations: [soap] Allergy to substance 9 Rash, Unknown [facility] (1 source) Povidone-Iodine Drug Allergy [facility] Repository Medications Current Medications Medication Drug Class(es) Dates Sig (Normalized) Sig (Original) acetaminophen 500 mg oral capsule (20 sources) Start: 04-16-2025 Start: 09-10-2020 take 650 mg by mouth every four hours as needed for pain, then take 4000 mg by mouth every twenty-four hours as needed for pain 650 mg, Oral, EVERY 4 HOURS PRN, Pain Mild (1-3), Fever, Fever >100.5 F (38 C), Starting Sun09/10/20 at 1927 Maximum dose of acetaminophen is 4000 mg from all sources in 24 hours. Post-op Start: 09-10-2020 End: 09-10-2020 acetaminophen (TYLENOL) tabl et 1,000 mg acetaminophen (T ylenol) 500 MG tablet Take by mouth. Active albuterol 0.83 mg/ml inhalat ion solution (20 sources) beta2-Adrenergic Agonist Start: 12-25-2024 Start: 12-25-2024 Albuterol Sulf ate 2.5 mg /3 mL (0.083 %) solution for nebulization Active mg continuous nebulization December 25, 2024 12:00am Start: 09-10-2020 2.5 mg, Nebuli zation, EVERY 6 HOURS PRN, Wheezing, Starting Sun09/10/20 at 1927 Start: 04-25-2019 End: 12-25-2024 Start: 04-25-2019 End: 12-25-2024 Albuterol Sulfate (Ventolin Hfa) 90 mcg/actuation HFA aerosol inhaler Discontinued 2 NMA INHALATION Q4H as needed for shortness of breath or wheezing 14 10March 17, 2022 8:07am December 25, 2024 2:46pm Start: 04-25-2019 End: 03-17-2022 take 1 puff(s) by inhalation every four hours Albuterol Sulfate (Ventolin Hfa) 90 mcg/actuation HFA aerosol inhaler Discontinued 2 PUFF INHALATION Q4H October 05, 2021 11:00am March 17, 2022 8:08am Start: 07-06-2015 End: 11-22-2016 Start: 07-06-2015 End: 11-22-2016 Albuterol Sulfate (Ventolin Hfa) 1 INHALER inhaler Discontinued 1 - 2 NMA INHALATION EVERY 4 HOURS NEEDED as needed for Wheezing 1 0 July 06, 2015 1:00am November 22, 2016 7:42pm Start: 07-06-2015 End: 11-22-2016 take 1 puff(s) by inhalation every four hours as needed Albuterol Sulfate (Ventolin Hfa) 1 INHALER inhaler Discontinued 1 - 2 PUFF INHALATION EVERY 4 HOURS NEEDED July 06, 2015 1:00am November 22, 2016 7:42pm take 2 puff(s) by in halation every four hours as needed albuterol (Ventolin HFA) 108 (90 Base) MCG/ACT inhaler Inhale 2 puffs every 4 hours as needed. Active take 2 puff(s) by in halation every six hours as needed for wheezing albuterol sulfate HFA (VENTOLIN HFA) 108 (90 Base) MCG/ACT inhaler Inhale 2 puffs into the lungs every 6 hours as needed for Wheezing 0 Active amoxicillin 875 mg / clavulanate 125 mg oral tablet (1 source) Penicillin-class Antibacterial Start: 05-08-2023 End: 05-15-2023 take 1 tablet by mouth twice daily amoxicillin-clavulanic acid (AUGMENTIN) 875-125 mg per tablet Take 1 tablet by mouth two times a day for 7 days. 14 tablet 0 05/08/2023 05/15/2023 Active Comment on above: Take 1 tablet by mouth two times a day f or 7 days. apixaban 2.5 mg oral tablet (2 sources) Factor Xa Inhibitor Start: 09-11-2020 End: 10-10-2020 take 1 tablet by mouth twice daily apixaban (ELIQUIS) 2.5 MG TABS tablet Take 1 tablet by mouth 2 times daily for 28 days 56 tablet 0 09/12/2020 10/10/2020 Active atorvastatin 20 mg oral tablet (9 sources) HMG-CoA Reductase Inhibitor Start: 01-28-2018 take 1 tablet by mouth once daily at bedtime for hyperlipidemia atorvastatin (LIPITOR) 20 mg tablet Take 1 tablet by mouth daily at bedtime. For cholesterol. 30 tablet 5 01/28/2018 Active Comment on above: Take 1 tablet by mouth daily at bedtime. For cholesterol. Blood Pressure Monitor (2 sources) Start: 08-16-2021 Blood Pressure Monitor Active 0 .MEDSUPPLY 1 August 16, 2021 1:00am Check blood pressure daily for hypertension I10 Blood Pressure Monitor kit (3 sources) Start: 08-16-2021 Blood Pressure Monitor kit Active 0 .MEDSUPPLY 1 0 August 16, 2021 1:00am Essential (primary) hypertension Check blood pressure daily for hypertension I10 Budesonide-Form oterol (20 sources) Corticosteroid, beta2-Adrenergic Agonist Start: 04-16-2025 Start: 07-28-2024 End: 12-25-2024 Budesonide-Formoterol (Symbi lavelle) 160-4.5 mcg/actuation HFA aerosol inhaler Discontinued 2 NMA INHALATION Q12H 10.2 3 July 28, 2024 12:49pm December 25, 2024 2:46pm Unspecified asthma, uncomplicated Start: 07-28-2024 End: 12-25-2024 Start: 03-07-2024 End: 07-28-2024 Budesonide-Formoterol (Symbi lavelle) 160-4.5 mcg/actuation HFA aerosol inhaler Discontinued 2 NMA INHALATION Q12H 10.2 4 March 07, 2024 5:32pm July 28, 2024 12:50pm Unspecified asthma, uncomplicated Start: 03-07-2024 End: 07-28-2024 Start: 10-19-2023 End: 03-07-2024 Budesonide-Formoterol (Symbi lavelle) 160-4.5 mcg/actuation HFA aerosol inhaler Discontinued 2 NMA INHALATION Q12H 10.2 4 October 19, 2023 12:49pm March 07, 2024 5:32pm Unspecified asthma, uncomplicated Start: 10-19-2023 End: 03-07-2024 Start: 10-19-2023 take 1 puff(s) by in halation every twelve hours Budesonide-Formoterol (Symbicort) 160-4.5 mcg/actuation HFA aerosol inhaler Active 2 PUFF INHALATION Q12H 10.2 October 19, 2023 12:49pm Start: 06-26-2023 End: 10-19-2023 Budesonide-Formoterol (Symbi lavelle) 160-4.5 mcg/actuation HFA aerosol inhaler Discontinued 2 NMA INHALATION Q12H 10.2 3 June 26, 2023 2:19pm October 19, 2023 12:51pm Unspecified asthma, uncomplicated Start: 06-26-2023 End: 10-19-2023 Start: 06-26-2023 End: 10-19-2023 take 1 puff(s) by inhalation every twelve hours Budesonide-Formoterol (Symbicort) 160-4.5 mcg/actuation HFA aerosol inhaler Discontinued 2 PUFF INHALATION Q12H 10.2 June 26, 2023 2:19pm October 19, 2023 12:51pm Start: 03-06-2023 End: 06-26-2023 Budesonide-Formoterol (Symbi lavelle) 160-4.5 mcg/actuation HFA aerosol inhaler Discontinued 2 NMA INHALATION Q12H 10.2 3 March 06, 2023 11:12pm June 26, 2023 2:19pm Unspecified asthma, uncomplicated Start: 03-06-2023 End: 06-26-2023 Start: 03-06-2023 End: 06-26-2023 take 1 puff(s) by inhalation every twelve hours Budesonide-Formoterol (Symbicort) 160-4.5 mcg/actuation HFA aerosol inhaler Discontinued 2 PUFF INHALATION Q12H 10.2 March 06, 2023 11:12pm June 26, 2023 2:19pm Start: 11-17-2022 End: 03-06-2023 Budesonide-Formoterol (Symbi lavelle) 160-4.5 mcg/actuation HFA aerosol inhaler Discontinued 2 NMA INHALATION Q12H 10.2 3 November 17, 2022 4:13pm March 06, 2023 11:12pm Unspecified asthma, uncomplicated Start: 11-17-2022 End: 03-06-2023 Start: 11-17-2022 End: 03-06-2023 take 1 puff(s) by inhalation every twelve hours Budesonide-Formoterol (Symbicort) 160-4.5 mcg/actuation HFA aerosol inhaler Discontinued 2 PUFF INHALATION Q12H 10.2 November 17, 2022 4:13pm March 06, 2023 11:12pm Start: 07-25-2022 End: 11-17-2022 Budesonide-Formoterol (Symbi lavelle) 160-4.5 mcg/actuation HFA aerosol inhaler Discontinued 2 NMA INHALATION Q12H 10.2 3 July 25, 2022 4:49pm November 17, 2022 4:13pm Unspecified asthma, uncomplicated Start: 07-25-2022 End: 11-17-2022 Start: 07-25-2022 End: 11-17-2022 take 1 puff(s) by inhalation every twelve hours Budesonide-Formoterol (Symbicort) 160-4.5 mcg/actuation HFA aerosol inhaler Discontinued 2 PUFF INHALATION Q12H 10.2 July 25, 2022 4:49pm November 17, 2022 4:13pm Start: 07-25-2022 take 1 puff(s) by in halation every twelve hours Budesonide-Formoterol (Symbicort) 160-4.5 mcg/actuation HFA aerosol inhaler Active 2 PUFF INHALATION Q12H 10.2 July 25, 2022 4:49pm Start: 03-17-2022 End: 07-25-2022 Budesonide-Formoterol (Symbi lavelle) 160-4.5 mcg/actuation HFA aerosol inhaler Discontinued 2 NMA INHALATION Q12H 10.2 3 March 17, 2022 8:06am July 25, 2022 4:49pm Unspecified asthma, uncomplicated Start: 03-17-2022 End: 07-25-2022 Start: 03-17-2022 End: 07-25-2022 take 1 puff(s) by inhalation every twelve hours Budesonide-Formoterol (Symbicort) 160-4.5 mcg/actuation HFA aerosol inhaler Discontinued 2 PUFF INHALATION Q12H 10.2 March 17, 2022 8:06am July 25, 2022 4:49pm Start: 01-03-2021 End: 03-17-2022 Start: 01-03-2021 End: 03-17-2022 Budesonide-Formoterol (Symbi lavelle) 160-4.5 mcg/actuation HFA aerosol inhaler Discontinued 2 NMA INHALATION Q12H 10.2 3 January 19, 2022 6:25pm March 17, 2022 8:08am Unspecified asthma, uncomplicated Start: 01-03-2021 End: 03-17-2022 take 1 puff(s) by inhalation every twelve hours Budesonide-Formoterol (Symbicort) 160-4.5 mcg/actuation HFA aerosol inhaler Discontinued 2 PUFF INHALATION Q12H 10.2 January 19, 2022 6:25pm March 17, 2022 8:08am Start: 10-18-2020 End: 01-03-2021 Budesonide-Formoterol (Symbi lavelle) 160-4.5 mcg/actuation HFA aerosol inhaler Discontinued 2 NMA INHALATION Q12H 10.2 3 October 18, 2020 11:59am January 03, 2021 9:15am Unspecified asthma, uncomplicated Start: 10-18-2020 End: 01-03-2021 Start: 10-18-2020 End: 01-03-2021 take 1 puff(s) by inhalation every twelve hours Budesonide-Formoterol (Symbicort) 160-4.5 mcg/actuation HFA aerosol inhaler Discontinued 2 PUFF INHALATION Q12H 10.2 October 18, 2020 11:59am January 03, 2021 9:15am Start: 05-20-2019 End: 10-18-2020 Start: 05-20-2019 End: 10-18-2020 Budesonide-Formoterol (Symbi lavelle) 160-4.5 mcg/actuation HFA aerosol inhaler Discontinued 2 NMA INHALATION Q12H 10.2 3 October 18, 2020 11:35am October 18, 2020 11:59am Unspecified asthma, uncomplicated Start: 05-20-2019 End: 10-18-2020 take 1 puff(s) by inhalation every twelve hours Budesonide-Formoterol (Symbicort) 160-4.5 mcg/actuation HFA aerosol inhaler Discontinued 2 PUFF INHALATION Q12H 10.2 October 18, 2020 11:35am October 18, 2020 11:59am budesonide-formo terol (Symbicort) 80-4.5 MCG/ACT inhaler every 12 hours. Active take 2 puff(s) by in halation twice daily budesonide-formoterol (SYMBICORT) 160-4.5 MCG/ACT AERO Inhale 2 puffs into the lungs 2 times daily 0 Active cholecalciferol 0.025 mg ora l capsule (14 sources) Vitamin D Start: 12-25-2024 cloNIDine hydrochloride 0.1 mg oral tablet (7 sources) Central alpha-2 Adrenergic Agonist Start: 04-21-2025 Start: 04-21-2025 Start: 04-16-2025 End: 04-21-2025 COMPOUNDED PRESCRIPTION (7 sources) Start: 12-12-2016 COMPOUNDED PRESCRIPTION CPAP mask Dx: CARLA G47.33 1 Each 12/12/2016 Active Comment on above: CPAP mask Dx: CARLA G4 7.33 COMPR.STOCKING,THIGH,R EG,X-LRG (COMP.STOCKING,THIGH,R EG,X-LRG) misc (7 sources) Start: 06-28-2017 COMPR.STOCKING ,THIGH,R EG,X-LRG (COMP.STOCKING,THIGH,R EG,X-LRG) misc Indications: Lymphedema of both lower extremities Wear stockings through the day.remove at night. (I89.0) Lymphedema of both lower extremities 2 Each 0 06/28/2017 Active Comment on above: Wear stockings throu gh the day.remove at night. (I89.0) Lymphedema of both lower extremities CPAP (7 sources) Start: 07-20-2015 CPAP Indicatio ns: Obstructive sleep apnea Initiate CPAP @ 14cm of water with humidification. Mask (per patient preference) optional chin strap (if indicated) , filters, tubing, humidifier and lifetime supplies. 1 Device 0 07/20/2015 Active Comment on above: Initiate CPAP @ 14cm of water with humidification. Mask (per patient preference) optional chin strap (if indicated) , filters, tubing, humidifier and lifetime supplies. Cpap Mask (8 sources) Start: 05-02-2023 Cpap Mask Acti ve 0 .Route .MEDSUPPLY 1 0 May 02, 2023 11:41am As directed Start: 05-02-2023 Cpap Mask Acti ve 0 .Route .MEDSUPPLY 1 May 02, 2023 11:41am As directed Start: 04-30-2023 End: 05-02-2023 Cpap Mask Discontinued 0 .[place] .MEDSUPPLY 1 0 April 30, 2023 12:00am May 02, 2023 11:41am As directed Start: 04-30-2023 End: 05-02-2023 Cpap Mask Discontinued 0 .[place] .MEDSUPPLY 1 April 30, 2023 12:00am May 02, 2023 11:41am As directed 60 actuat formoterol fumarate 0.005 mg/actuat / mometasone furoate 0.2 mg/actuat metered dose inhaler (1 source) Corticosteroid, beta2-Adrenergic Agonist Start: 09-10-2020 take 2 puff(s) by inhalation twice daily 2 puff, Inhalation, 2 TIMES DAILY, First dose on Sun09/10/20 at 2000 Substituted for Budesonide-Formoterol (SYMBICORT). Handicap Placard (8 sources) Start: 05-05-2024 Handicap Placard Active 0 .ROUTE .MEDSUPPLY 1 0 May 05, 2024 11:48am Other reduced mobility As directed, length of time 3 years Start: 11-26-2020 End: 05-05-2024 Handicap Placard Discontinue d 0 .ROUTE .MEDSUPPLY 1 0 November 26, 2020 12:00am May 05, 2024 11:48am Other reduced mobility As directed, length of time 3 years Start: 11-26-[address] Active 0 .ROUTE .MEDSUPPLY 1 November 26, 2020 12:00am As directed, length of time 3 years hydrALAZINE hydrochloride 10 0 mg oral tablet (20 sources) Arteriolar Vasodilator Start: 04-07-2025 Start: 11-12-2024 End: 04-07-2025 Start: 01-17-2023 End: 04-07-2025 Start: 01-17-2023 End: 09-26-2024 take 1 tablet by mouth three times daily Hydralazine 50 mg tablet Discontinued 50 mg PO THREE TIMES A DAY 90 0 August 20, 2024 1:43pm September 03, 2024 4:06pm Hypertension Essential (primary) hypertension Start: 05-24-2022 End: 01-17-2023 iron polysaccharides (Nu-Iron,Niferex) 150 MG capsule (20 sources) take 1 capsule by mouth once daily iron polysaccharides (Nu-Iron,Niferex) 150 MG capsule Take 150 mg by mouth daily. Active lisinopril 20 mg oral tablet (2 sources) Angiotensin Converting Enzyme Inhibitor take 1 tablet by mouth once daily lisinopril (PRINIVIL;ZESTRIL) 20 MG tablet Take 20 mg by mouth daily 0 Active magnesium oxide 400 mg oral capsule (6 sources) Start: 2024 metroNIDAZOLE 500 mg oral tablet (1 source) Nitroimidazole Antimicrobial Start: 2021 End: 2021 take 1 tablet by mouth twice daily metroNIDAZOLE (FLAGYL) 500 mg tablet Take 1 tablet by mouth twice daily for 7 days. 14 tablet 0 11/03/2021 11/10/2021 Active Comment on above: Take 1 tablet by severiano th twice daily for 7 days. niraparib (ZEJULA) 200 mg tablet (3 sources) take 1 tablet by mouth once daily niraparib (ZEJULA) 200 mg tablet Take 200 mg by mouth once daily. 0 Active Comment on above: Take 200 mg by mouth once daily. Niraparib Tosylate (Zejula) 200 MG tablet (20 sources) Niraparib Tosyla te (Zejula) 200 MG tablet Take by mouth. Active oxyCODONE hydrochloride 5 mg oral tablet (2 sources) Opioid Agonist Start: 2020 End: 2020 take 1 tablet by mouth every four hours as needed for pain oxyCODONE (ROXICODONE) 5 MG immediate release tablet Indications: Post-op pain Take 1 tablet by mouth every 4 hours as needed for Pain for up to 5 days. 28 tablet 0 09/12/2020 09/17/2020 Active Start: 09-10-2020 oxyCODONE (SALUD ICODONE) immediate release tablet 5 mg Promethazine (1 source) Phenothiazine Start: 09-10-2020 promethazine ( PHENERGAN) tablet 12.5 mg 3 ml sodium chloride 9 mg/ml injection (2 sources) Start: 09-10-2020 10 mL, Intrave nous, EVERY 12 HOURS SCHEDULED (2 times per day), First dose on Sun09/10/20 at 2100, Post-op Start: 09-10-2020 take 10 mL intravenous route o nce 10 mL, Intravenous, PRN, Line Care, Starting Sun09/10/20 at 1927 After every IV line use Post-op traMADol hydrochloride 50 mg oral tablet (20 sources) Opioid Agonist Start: 12-25-2024 VITAMIN D PO (20 sources) VITAMIN D PO Lorenzo e by mouth. Active Completed/Discontinued Medications Medication Drug Class(es) Dates Sig (Normalized) Sig (Original) acetaminophen 325 mg / oxyCODONE hydrochloride 5 mg oral tablet (20 sources) Opioid Agonist Start: 06-03-2020 End: 06-09-2020 Start: 06-03-2020 End: 06-09-2020 Oxycodone-Acetaminophen 1 TA BLET tablet Discontinued 1 - 2 {tbl} PO EVERY 4 HOURS NEEDED as needed for Pain 26 01June 03, 2020 June 08, 2020 1:00am June 09, 2020 1:02am Admission for fitting and adjustment of vascular catheter Encounter for adjustment and management of vascular access device Start: 06-03-2020 End: 06-09-2020 take 1 tablet by mouth every four hours as needed Oxycodone-Acetaminophen Discontinued 1 - 2 TABLET PO EVERY 4 HOURS NEEDED 26 01June 03, 2020 June 09, 2020 1:02am Start: 05-27-2020 End: 06-02-2020 Start: 05-27-2020 End: 06-02-2020 Oxycodone-Acetaminophen 1 TA BLET tablet Discontinued 1 - 2 {tbl} PO EVERY 4 HOURS NEEDED as needed for Pain 26 01May 27, 2020 June 01, 2020 1:00am June 02, 2020 1:02am Malignant neoplasm of ovary Malignant neoplasm of unspecified ovary Start: 05-27-2020 End: 06-02-2020 take 1 tablet by mouth every four hours as needed Oxycodone-Acetaminophen Discontinued 1 - 2 TABLET PO EVERY 4 HOURS NEEDED 26 01May 27, 2020 June 02, 2020 1:02am amLODIPine 10 mg oral tablet (20 sources) Dihydropyridine Calcium Channel [place] Start: 11-10-2024 End: 04-08-2025 amoxicillin 875 mg oral tabl et (15 sources) Penicillin-class Antibacterial Start: 05-10-2023 End: 08-27-2023 atenolol 50 mg oral tablet (16 sources) beta-Adrenergic Emerson Start: 01-28-2014 End: 10-16-2018 azithromycin 250 mg oral tablet (16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 in right knee] Onset: 03-03-2025 Episodic Other non-traumatic joint disorders (1 source) Pain in left knee; Translations: [Pain in left knee] Onset: 03-03-2025 Episodic Other screening for suspected conditions (not mental disorders or infectious disease) (20 sources) Patient encounter status; Translations: [Encounter for screening mammogram for malignant neoplasm of breast] Onset: 09-21-2020 Episodic Residual codes; unclassified (20 sources) Postoperative state; Translations: [Other specified postprocedural states] Onset: 09-10-2020 05-15-2022 Episodic Spondylosis; intervertebral disc disorders; other back problems (7 sources) Acute low back pain; Translations: [Acute midline low back pain without sciatica] Onset: 01-05-2017 01-05-2017 Episodic Unclassified (5 sources) PORT PLACEMENT 02-16-2022 Comment on above: MAY 2020 Unclassified (1 source) Malignant neoplasm of bilateral ovaries (HCC); Translations: [Malignant neoplasm of bilateral ovaries (HCC)] Onset: 02-09-2025 Results Test Name Value Interpretation Reference Range Facility CBC W/Diff, Automatedon 11-0 Absolute Lymph 1.05 X10 3/uL Normal 0.83-4.51 [facility] Comment on above: Performed By: #### L 501.5200, L100.0100, L500.4050 ####[facility] [address] [place], [address] Absolute Neut 1.5 X10 3/uL Low 2.0-7.7 [facility] Comment on above: Performed By: #### L 501.5200, L100.0100, L500.4050 ####[facility] [address] [place], [address] Basophils/100 WBC (Bld) 0.7 % Normal 0-1 [facility] Comment on above: Performed By: #### L 501.5200, L100.0100, L500.4050 ####[facility] [address] [place], [address] Eosinophils/100 WBC (Bld) 1.7 % Normal 0-5 [facility] Comment on above: Performed By: #### L 501.5200, L100.0100, L500.4050 ####[facility] [address] [place], [address] Erythrocyte distribution width (RBC) [Ratio] 17.2 % High 11.6-14.6 [facility] Comment on above: Performed By: #### L 501.5200, L100.0100, L500.4050 ####[facility] [address] [place], [address] Hematocrit (Bld) [Volume fraction] 25.9 % Low 37-47 [facility] Comment on above: Performed By: #### L 501.5200, L100.0100, L500.4050 ####[facility] [address] [place], [address] Hemoglobin (Bld) [Mass/Vol] 8.5 g/dL Low 12.0-15.0 [facility] Comment on above: Performed By: #### L 501.5200, L100.0100, L500.4050 ####[facility] [address] [place], [address] IG% 0.300 Normal 0.0-0.9 [facility] Comment on above: Result Comment: IG% - Immature Granulocytes (promyelocytes, myelocytes andmetamyelocytes) > 1% indicates that a LEFT SHIFT is Present. Performed By: #### L 501.5200, L100.0100, L500.4050 ####[facility] [address] [place], [address] Lymphocytes/100 WBC (Bld) 36.7 % Normal 19-41 [facility] Comment on above: Performed By: #### L 501.5200, L100.0100, L500.4050 ####[facility] [address] [place], [address] MCH (RBC) [Entitic mass] 33.3 pg High 27.0-32.0 [facility] Comment on above: Performed By: #### L 501.5200, L100.0100, L500.4050 ####[facility] [address] [place], [address] MCHC (RBC) [Mass/Vol] 32.8 g/dL Normal 32-36 [facility] Comment on above: Performed By: #### L 501.5200, L100.0100, L500.4050 ####[facility] [address] [place], [address] MCV (RBC) [Entitic vol] 101.6 fL High 81-99 [facility] Comment on above: Performed By: #### L 501.5200, L100.0100, L500.4050 ####[facility] [address] [place], [address] Monocytes/100 WBC (Bld) 7.3 % Normal 0-10 [facility] Comment on above: Performed By: #### L 501.5200, L100.0100, L500.4050 ####[facility] [address] [place], [address] Neutrophils/100 WBC (Bld) 53.3 % Normal 47-70 [facility] Comment on above: Performed By: #### L 501.5200, L100.0100, L500.4050 ####[facility] [address] [place], [address] Nucleated RBC (Bld) [#/Vol] 0 10*3/uL Normal 0-5 [facility] Comment on above: Performed By: #### L 501.5200, L100.0100, L500.4050 ####[facility] [address] [place], [address] Platelet mean volume (Bld) [Entitic vol] 12.5 fL High 6.2-12.0 [facility] Comment on above: Performed By: #### L 501.5200, L100.0100, L500.4050 ####[facility] [address] [place], [address] Platelets (Bld) [#/Vol] 132 10*3/uL Low 150-450 [facility] Comment on above: Performed By: #### L 501.5200, L100.0100, L500.4050 ####[facility] [address] [place], [address] RBC (Bld) [#/Vol] 2.55 10*6/uL Low 4.2-5.4 [facility] Comment on above: Performed By: #### L 501.5200, L100.0100, L500.4050 ####[facility] [address] [place], [address] RDW SD 63.2 fl High 35.1-43.9 [facility] Comment on above: Performed By: #### L 501.5200, L100.0100, L500.4050 ####[facility] [address] [place], [address] WBC (Bld) [#/Vol] 2.9 10*3/uL Low 4.4-11.0 [facility] Comment on above: Performed By: #### L 501.5200, L100.0100, L500.4050 ####[facility] [address] [place], [address] Comprehensive Metabolic Prof [facility] 06-03-2025 Albumin [Mass/Vol] 4.1 g/dL Normal 3.4-4.8 [facility] Comment on above: Performed By: #### L 501.5200, L100.0100, L500.4050 ####[facility] [address] [place], [address] Albumin/Globulin [Mass ratio] 1.3 {ratio} Normal 0.9-2.4 [facility] Comment on above: Performed By: #### L 501.5200, L100.0100, L500.4050 ####[facility] [address] [place], [address] ALK PHOS 71 U/L Normal 35-104 [facility] Comment on above: Performed By: #### L 501.5200, L100.0100, L500.4050 ####[facility] [address] [place], [address] ALT [Catalytic activity/Vol] 14 U/L Normal <=34 [facility] Comment on above: Performed By: #### L 501.5200, L100.0100, L500.4050 ####[facility] [address] [place], [address] AST [Catalytic activity/Vol] 22 U/L Normal <=31 [facility] Comment on above: Performed By: #### L 501.5200, L100.0100, L500.4050 ####[facility] [address] [place], [address] Bilirubin [Mass/Vol] 0.34 mg/dL Normal 0.00-1.30 [facility] Comment on above: Performed By: #### L 501.5200, L100.0100, L500.4050 ####[facility] [address] [place], [address] BUN/CRE 16.4 RATIO Normal 10-20 [facility] Comment on above: Performed By: #### L 501.5200, L100.0100, L500.4050 ####[facility] [address] [place], [address] Calcium [Mass/Vol] 9.9 mg/dL Normal 7.6-11.0 [facility] Comment on above: Performed By: #### L 501.5200, L100.0100, L500.4050 ####[facility] [address] [place], [address] Chloride [Moles/Vol] 105 mmol/L Normal 98-108 [facility] Comment on above: Performed By: #### L 501.5200, L100.0100, L500.4050 ####[facility] [address] [place], [address] CO2 [Moles/Vol] 23.7 mmol/L Normal 21.0-32.0 [facility] Comment on above: Performed By: #### L 501.5200, L100.0100, L500.4050 ####[facility] [address] [place], [address] Creatinine [Mass/Vol] 2.66 mg/dL High 0.70-1.20 [facility] Comment on above: Performed By: #### L 501.5200, L100.0100, L500.4050 ####[facility] [address] [place], [address] ECRCL 24.29 ml/min Low 50-250 [facility] Comment on above: Performed By: #### L 501.5200, L100.0100, L500.4050 ####[facility] [address] [place], [address] GAP 12 Normal 5-15 [facility] Comment on above: Performed By: #### L 501.5200, L100.0100, L500.4050 ####[facility] [address] [place], [address] GFR/1.73 sq M.predicted among non-blacks MDRD (S/P/Bld) [Vol rate/Area] 19 mL/min/{1.73_m2} Low >60 [facility] Comment on above: Result Comment: mL/m in/1.73m2 CKD-EPI Creatinine Equation (2020) Performed By: #### L 501.5200, L100.0100, L500.4050 ####[facility] [address] [place], [address] Globulin (S) [Mass/Vol] 3.1 g/dL Normal 2.2-4.2 [facility] Comment on above: Performed By: #### L 501.5200, L100.0100, L500.4050 ####[facility] [address] [place], [address] Glucose [Mass/Vol] 120 mg/dL High 70-99 [facility] Comment on above: Performed By: #### L 501.5200, L100.0100, L500.4050 ####[facility] [address] [place], [address] Potassium [Moles/Vol] 3.4 mmol/L Normal 3.3-5.1 [facility] Comment on above: Performed By: #### L 501.5200, L100.0100, L500.4050 ####[facility] [address] [place], [address] Sodium [Moles/Vol] 140 mmol/L Normal 133-145 [facility] Comment on above: Performed By: #### L 501.5200, L100.0100, L500.4050 ####[facility] [address] [place], [address] T PROT 7.1 g/dL Normal 5.9-8.4 [facility] Comment on above: Performed By: #### L 501.5200, L100.0100, L500.4050 ####[facility] [address] [place], [address] Urea nitrogen [Mass/Vol] 44 mg/dL High 4-19 [facility] Comment on above: Performed By: #### L 501.5200, L100.0100, L500.4050 ####[facility] [address] [place], [address] Magnesiumon 06-03-2025 Magnesium [Mass/Vol] 1.4 mg/dL Low 1.5-2.2 [facility] Comment on above: Performed By: #### L 501.5200, L100.0100, L500.4050 ####[facility] [address] [place], [address] CT Chest, Abd, Pel w/Contras ton 06-01-2025 CT Chest, Abd, Pel w/Contrast Normal [facility] Soft Tissue Neck WITH Contra ston 06-01-2025 Soft Tissue Neck WITH Contrast Normal [facility] CBC W/Diff, Automatedon 10-2 Absolute Lymph 0.94 X10 3/uL Normal 0.83-4.51 [facility] Comment on above: Performed By: #### L 500.4050, L100.0100, L501.5200 ####[facility] [address] [place], [address] Absolute Neut 1.4 X10 3/uL Low 2.0-7.7 [facility] Comment on above: Performed By: #### L 500.4050, L100.0100, L501.5200 ####[facility] [address] [place], [address] Basophils/100 WBC (Bld) 0.8 % Normal 0-1 [facility] Comment on above: Performed By: #### L 500.4050, L100.0100, L501.5200 ####[facility] [address] [place], [address] Eosinophils/100 WBC (Bld) 1.1 % Normal 0-5 [facility] Comment on above: Performed By: #### L 500.4050, L100.0100, L501.5200 ####[facility] [address] [place], [address] Erythrocyte distribution width (RBC) [Ratio] 17.1 % High 11.6-14.6 [facility] Comment on above: Performed By: #### L 500.4050, L100.0100, L501.5200 ####[facility] [address] [place], [address] Hematocrit (Bld) [Volume fraction] 25.9 % Low 37-47 [facility] Comment on above: Performed By: #### L 500.4050, L100.0100, L501.5200 ####[facility] [address] [place], [address] Hemoglobin (Bld) [Mass/Vol] 8.6 g/dL Low 12.0-15.0 [facility] Comment on above: Performed By: #### L 500.4050, L100.0100, L501.5200 ####[facility] [address] [place], [address] IG% 0.400 Normal 0.0-0.9 [facility] Comment on above: Result Comment: IG% - Immature Granulocytes (promyelocytes, myelocytes andmetamyelocytes) > 1% indicates that a LEFT SHIFT is Present. Performed By: #### L 500.4050, L100.0100, L501.5200 ####[facility] [address] [place], [address] Lymphocytes/100 WBC (Bld) 35.6 % Normal 19-41 [facility] Comment on above: Performed By: #### L 500.4050, L100.0100, L501.5200 ####[facility] [address] [place], [address] MCH (RBC) [Entitic mass] 33.5 pg High 27.0-32.0 [facility] Comment on above: Performed By: #### L 500.4050, L100.0100, L501.5200 ####[facility] [address] [place], [address] MCHC (RBC) [Mass/Vol] 33.2 g/dL Normal 32-36 [facility] Comment on above: Performed By: #### L 500.4050, L100.0100, L501.5200 ####[facility] [address] [place], [address] MCV (RBC) [Entitic vol] 100.8 fL High 81-99 [facility] Comment on above: Performed By: #### L 500.4050, L100.0100, L501.5200 ####[facility] [address] [place], [address] Monocytes/100 WBC (Bld) 8.3 % Normal 0-10 [facility] Comment on above: Performed By: #### L 500.4050, L100.0100, L501.5200 ####[facility] [address] [place], [address] Neutrophils/100 WBC (Bld) 53.8 % Normal 47-70 [facility] Comment on above: Performed By: #### L 500.4050, L100.0100, L501.5200 ####[facility] [address] [place], [address] Nucleated RBC (Bld) [#/Vol] 0 10*3/uL Normal 0-5 [facility] Comment on above: Performed By: #### L 500.4050, L100.0100, L501.5200 ####[facility] [address] [place], [address] Platelet mean volume (Bld) [Entitic vol] 12.1 fL High 6.2-12.0 [facility] Comment on above: Performed By: #### L 500.4050, L100.0100, L501.5200 ####[facility] [address] [place], [address] Platelets (Bld) [#/Vol] 143 10*3/uL Low 150-450 [facility] Comment on above: Performed By: #### L 500.4050, L100.0100, L501.5200 ####[facility] [address] [place], [address] RBC (Bld) [#/Vol] 2.57 10*6/uL Low 4.2-5.4 [facility] Comment on above: Performed By: #### L 500.4050, L100.0100, L501.5200 ####[facility] [address] [place], [address] RDW SD 62.5 fl High 35.1-43.9 [facility] Comment on above: Performed By: #### L 500.4050, L100.0100, L501.5200 ####[facility] [address] [place], [address] WBC (Bld) [#/Vol] 2.6 10*3/uL Low 4.4-11.0 [facility] Comment on above: Performed By: #### L 500.4050, L100.0100, L501.5200 ####[facility] [address] [place], [address] Comprehensive Metabolic Prof ilon 05-27-2025 Albumin [Mass/Vol] 4.1 g/dL Normal 3.4-4.8 [facility] Comment on above: Performed By: #### L 500.4050, L100.0100, L501.5200 ####[facility] [address] [place], [address] Albumin/Globulin [Mass ratio] 1.3 {ratio} Normal 0.9-2.4 [facility] Comment on above: Performed By: #### L 500.4050, L100.0100, L501.5200 ####[facility] [address] [place], [address] ALK PHOS 63 U/L Normal 35-104 [facility] Comment on above: Performed By: #### L 500.4050, L100.0100, L501.5200 ####[facility] [address] [place], [address] ALT [Catalytic activity/Vol] 11 U/L Normal <=34 [facility] Comment on above: Performed By: #### L 500.4050, L100.0100, L501.5200 ####[facility] [address] [place], [address] AST [Catalytic activity/Vol] 22 U/L Normal <=31 [facility] Comment on above: Performed By: #### L 500.4050, L100.0100, L501.5200 ####[facility] [address] [place], [address] Bilirubin [Mass/Vol] 0.61 mg/dL Normal 0.00-1.30 [facility] Comment on above: Performed By: #### L 500.4050, L100.0100, L501.5200 ####[facility] [address] [place], [address] BUN/CRE 16.8 RATIO Normal 10-20 [facility] Comment on above: Performed By: #### L 500.4050, L100.0100, L501.5200 ####[facility] [address] [place], [address] Calcium [Mass/Vol] 9.5 mg/dL Normal 7.6-11.0 [facility] Comment on above: Performed By: #### L 500.4050, L100.0100, L501.5200 ####[facility] [address] [place], [address] Chloride [Moles/Vol] 104 mmol/L Normal 98-108 [facility] Comment on above: Performed By: #### L 500.4050, L100.0100, L501.5200 ####[facility] [address] [place], [address] CO2 [Moles/Vol] 24.1 mmol/L Normal 21.0-32.0 [facility] Comment on above: Performed By: #### L 500.4050, L100.0100, L501.5200 ####[facility] [address] [place], [address] Creatinine [Mass/Vol] 2.38 mg/dL High 0.70-1.20 [facility] Comment on above: Performed By: #### L 500.4050, L100.0100, L501.5200 ####[facility] [address] [place], [address] ECRCL 27.29 ml/min Low 50-250 [facility] Comment on above: Performed By: #### L 500.4050, L100.0100, L501.5200 ####[facility] [address] [place], [address] GAP 12 Normal 5-15 [facility] Comment on above: Performed By: #### L 500.4050, L100.0100, L501.5200 ####[facility] [address] [place], [address] GFR/1.73 sq M.predicted among non-blacks MDRD (S/P/Bld) [Vol rate/Area] 22 mL/min/{1.73_m2} Low >60 [facility] Comment on above: Result Comment: mL/m in/1.73m2 CKD-EPI Creatinine Equation (2020) Performed By: #### L 500.4050, L100.0100, L501.5200 ####[facility] [address] [place], [address] Globulin (S) [Mass/Vol] 3.1 g/dL Normal 2.2-4.2 [facility] Comment on above: Performed By: #### L 500.4050, L100.0100, L501.5200 ####[facility] [address] [place], [address] Glucose [Mass/Vol] 114 mg/dL High 70-99 [facility] Comment on above: Performed By: #### L 500.4050, L100.0100, L501.5200 ####[facility] [address] [place], [address] Potassium [Moles/Vol] 3.1 mmol/L Low 3.3-5.1 [facility] Comment on above: Performed By: #### L 500.4050, L100.0100, L501.5200 ####[facility] [address] [place], [address] Sodium [Moles/Vol] 141 mmol/L Normal 133-145 [facility] Comment on above: Performed By: #### L 500.4050, L100.0100, L501.5200 ####[facility] [address] [place], [address] T PROT 7.2 g/dL Normal 5.9-8.4 [facility] Comment on above: Performed By: #### L 500.4050, L100.0100, L501.5200 ####[facility] [address] [place], [address] Urea nitrogen [Mass/Vol] 40 mg/dL High 4-19 [facility] Comment on above: Performed By: #### L 500.4050, L100.0100, L501.5200 ####[facility] [address] [place], [address] Magnesiumon 05-27-2025 Magnesium [Mass/Vol] 1.2 mg/dL Low 1.5-2.2 [facility] Comment on above: Performed By: #### L 500.4050, L100.0100, L501.5200 ####[facility] [address] [place], [address] Oncology Visit Reporton 04-30 Oncology Visit Report Normal [facility] Urinalysis, Completeon 05-27 BACTERIA 2+ /hpf Normal None Seen [facility] Comment on above: Order Comment: CLEAN CATCH Performed By: #### L 400.0001 ####[facility] [address] [place], [address] EPI,SQUAMOUS 10-25 SEEN Normal 5-10 [facility] Comment on above: Order Comment: CLEAN CATCH Performed By: #### L 400.0001 ####[facility] [address] [place], [address] Mucus Ql (Urine sed) 2+ /hpf Normal [facility] Comment on above: Order Comment: CLEAN CATCH Performed By: #### L 400.0001 ####[facility] [address] [place], [address] WBC 25-50 SEEN Normal 0-5 [facility] Comment on above: Order Comment: CLEAN CATCH Performed By: #### L 400.0001 ####[facility] [address] [place], [address] RBC 0 SEEN Normal 0-5 [facility] Comment on above: Order Comment: CLEAN CATCH Performed By: #### L 400.0001 ####[facility] [address] [place], [address] CBC W/Diff, Automatedon 10-2 2-2024 Absolute Lymph 0.84 X10 3/uL Normal 0.83-4.51 [facility] Comment on above: Performed By: #### L 100.0100, L500.4050, L501.5200 ####[facility] [address] [place], [address] Absolute Neut 1.0 X10 3/uL Low 2.0-7.7 [facility] Comment on above: Performed By: #### L 100.0100, L500.4050, L501.5200 ####[facility] [address] [place], [address] Basophils/100 WBC (Bld) 0.9 % Normal 0-1 [facility] Comment on above: Performed By: #### L 100.0100, L500.4050, L501.5200 ####[facility] [address] [place], [address] Eosinophils/100 WBC (Bld) 1.3 % Normal 0-5 [facility] Comment on above: Performed By: #### L 100.0100, L500.4050, L501.5200 ####[facility] [address] [place], [address] Erythrocyte distribution width (RBC) [Ratio] 16.4 % High 11.6-14.6 [facility] Comment on above: Performed By: #### L 100.0100, L500.4050, L501.5200 ####[facility] [address] [place], [address] Hematocrit (Bld) [Volume fraction] 24.9 % Low 37-47 [facility] Comment on above: Performed By: #### L 100.0100, L500.4050, L501.5200 ####[facility] [address] [place], [address] Hemoglobin (Bld) [Mass/Vol] 8.3 g/dL Low 12.0-15.0 [facility] Comment on above: Performed By: #### L 100.0100, L500.4050, L501.5200 ####[facility] [address] [place], [address] IG% 0.000 Normal 0.0-0.9 [facility] Comment on above: Result Comment: IG% - Immature Granulocytes (promyelocytes, myelocytes andmetamyelocytes) > 1% indicates that a LEFT SHIFT is Present. Performed By: #### L 100.0100, L500.4050, L501.5200 ####[facility] [address] [place], [address] Lymphocytes/100 WBC (Bld) 37.5 % Normal 19-41 [facility] Comment on above: Performed By: #### L 100.0100, L500.4050, L501.5200 ####[facility] [address] [place], [address] MCH (RBC) [Entitic mass] 33.7 pg High 27.0-32.0 [facility] Comment on above: Performed By: #### L 100.0100, L500.4050, L501.5200 ####[facility] [address] [place], [address] MCHC (RBC) [Mass/Vol] 33.3 g/dL Normal 32-36 [facility] Comment on above: Performed By: #### L 100.0100, L500.4050, L501.5200 ####[facility] [address] [place], [address] MCV (RBC) [Entitic vol] 101.2 fL High 81-99 [facility] Comment on above: Performed By: #### L 100.0100, L500.4050, L501.5200 ####[facility] [address] [place], [address] Monocytes/100 WBC (Bld) 14.7 % High 0-10 [facility] Comment on above: Performed By: #### L 100.0100, L500.4050, L501.5200 ####[facility] [address] [place], [address] Neutrophils/100 WBC (Bld) 45.6 % Low 47-70 [facility] Comment on above: Performed By: #### L 100.0100, L500.4050, L501.5200 ####[facility] [address] [place], [address] Nucleated RBC (Bld) [#/Vol] 0 10*3/uL Normal 0-5 [facility] Comment on above: Performed By: #### L 100.0100, L500.4050, L501.5200 ####[facility] [address] [place], [address] Platelet mean volume (Bld) [Entitic vol] 11.9 fL Normal 6.2-12.0 [facility] Comment on above: Performed By: #### L 100.0100, L500.4050, L501.5200 ####[facility] [address] [place], [address] Platelets (Bld) [#/Vol] 166 10*3/uL Normal 150-450 [facility] Comment on above: Performed By: #### L 100.0100, L500.4050, L501.5200 ####[facility] [address] [place], [address] RBC (Bld) [#/Vol] 2.46 10*6/uL Low 4.2-5.4 [facility] Comment on above: Performed By: #### L 100.0100, L500.4050, L501.5200 ####[facility] [address] [place], [address] RDW SD 59.3 fl High 35.1-43.9 [facility] Comment on above: Performed By: #### L 100.0100, L500.4050, L501.5200 ####[facility] [address] [place], [address] WBC (Bld) [#/Vol] 2.2 10*3/uL Low 4.4-11.0 [facility] Comment on above: Performed By: #### L 100.0100, L500.4050, L501.5200 ####[facility] [address] [place], [address] Comprehensive Metabolic Prof ilon 05-20-2025 Albumin [Mass/Vol] 4.1 g/dL Normal 3.4-4.8 [facility] Comment on above: Performed By: #### L 100.0100, L500.4050, L501.5200 ####[facility] [address] [place], [address] Albumin/Globulin [Mass ratio] 1.4 {ratio} Normal 0.9-2.4 [facility] Comment on above: Performed By: #### L 100.0100, L500.4050, L501.5200 ####[facility] [address] [place], [address] ALK PHOS 74 U/L Normal 35-104 [facility] Comment on above: Performed By: #### L 100.0100, L500.4050, L501.5200 ####[facility] [address] [place], [address] ALT [Catalytic activity/Vol] 15 U/L Normal <=34 [facility] Comment on above: Performed By: #### L 100.0100, L500.4050, L501.5200 ####[facility] [address] [place], [address] AST [Catalytic activity/Vol] 17 U/L Normal <=31 [facility] Comment on above: Performed By: #### L 100.0100, L500.4050, L501.5200 ####[facility] [address] [place], [address] Bilirubin [Mass/Vol] 0.42 mg/dL Normal 0.00-1.30 [facility] Comment on above: Performed By: #### L 100.0100, L500.4050, L501.5200 ####[facility] [address] [place], [address] BUN/CRE 15.1 RATIO Normal 10-20 [facility] Comment on above: Performed By: #### L 100.0100, L500.4050, L501.5200 ####[facility] [address] [place], [address] Calcium [Mass/Vol] 10.0 mg/dL Normal 7.6-11.0 [facility] Comment on above: Performed By: #### L 100.0100, L500.4050, L501.5200 ####[facility] [address] [place], [address] Chloride [Moles/Vol] 105 mmol/L Normal 98-108 [facility] Comment on above: Performed By: #### L 100.0100, L500.4050, L501.5200 ####[facility] [address] [place], [address] CO2 [Moles/Vol] 23.8 mmol/L Normal 21.0-32.0 [facility] Comment on above: Performed By: #### L 100.0100, L500.4050, L501.5200 ####[facility] [address] [place], [address] Creatinine [Mass/Vol] 2.38 mg/dL High 0.70-1.20 [facility] Comment on above: Performed By: #### L 100.0100, L500.4050, L501.5200 ####[facility] [address] [place], [address] ECRCL 27.29 ml/min Low 50-250 [facility] Comment on above: Performed By: #### L 100.0100, L500.4050, L501.5200 ####[facility] [address] [place], [address] GAP 10 Normal 5-15 [facility] Comment on above: Performed By: #### L 100.0100, L500.4050, L501.5200 ####[facility] [address] [place], [address] GFR/1.73 sq M.predicted among non-blacks MDRD (S/P/Bld) [Vol rate/Area] 22 mL/min/{1.73_m2} Low >60 [facility] Comment on above: Result Comment: mL/m in/1.73m2 CKD-EPI Creatinine Equation (2020) Performed By: #### L 100.0100, L500.4050, L501.5200 ####[facility] [address] [place], [address] Globulin (S) [Mass/Vol] 2.9 g/dL Normal 2.2-4.2 [facility] Comment on above: Performed By: #### L 100.0100, L500.4050, L501.5200 ####[facility] [address] [place], [address] Glucose [Mass/Vol] 115 mg/dL High 70-99 [facility] Comment on above: Performed By: #### L 100.0100, L500.4050, L501.5200 ####[facility] [address] [place], [address] Potassium [Moles/Vol] 4.2 mmol/L Normal 3.3-5.1 [facility] Comment on above: Performed By: #### L 100.0100, L500.4050, L501.5200 ####[facility] [address] [place], [address] Sodium [Moles/Vol] 139 mmol/L Normal 133-145 [facility] Comment on above: Performed By: #### L 100.0100, L500.4050, L501.5200 ####[facility] [address] [place], [address] T PROT 7.0 g/dL Normal 5.9-8.4 [facility] Comment on above: Performed By: #### L 100.0100, L500.4050, L501.5200 ####[facility] [address] [place], [address] Urea nitrogen [Mass/Vol] 36 mg/dL High 4-19 [facility] Comment on above: Performed By: #### L 100.0100, L500.4050, L501.5200 ####[facility] [address] [place], [address] Magnesiumon 05-20-2025 Magnesium [Mass/Vol] 1.4 mg/dL Low 1.5-2.2 [facility] Comment on above: Performed By: #### L 100.0100, L500.4050, L501.5200 ####[facility] [address] [place], [address] Protein, Urine 24HRon 2024 UR COLLECT TIME 24.0 HOURS Normal 24.0 [facility] Comment on above: Performed By: #### L 500.9000 ####[facility] [address] [place], [address] UR TOTAL VOLUME 1175 mL Normal [facility] Comment on above: Performed By: #### L 500.9000 ####[facility] [address] [place], [address] CA 15-3on 05-15-2025 CA 15-3 18.6 U/mL Normal 0.0-25.0 [facility] Comment on above: Result Comment: [employer] Electrochemiluminescence Immunoassay(ECLIA)Values obtained with different assay methods or kits cannotbe used interchangeably. Results cannot be interpreted asabsolute evidence of the presence or absence of malignantdisease.Performed at: [address] [id number] Director: Joe Olivier PhD, Phone: [phone] Performed By: #### L 3100.5000, L3100.2300, L3100.5030, L3100.5040 ####[facility] [address] [place], [address] CA 27.29on 05-15-2025 CA 27.29 22.5 U/mL Normal 0.0-38.6 [facility] Comment on above: Result Comment: [facility] [employer] Immunochemiluminometric Methodology (ICMA)Values obtained with different assay methods or kits cannotbe used interchangeably. Results cannot be interpreted asabsolute evidence of the presence or absence of malignantdisease. Performed By: #### L 3100.5000, L3100.2300, L3100.5030, L3100.5040 ####[facility] [address] [place], [address] Cancer Antigen 125on 025 CA 125 7.7 U/mL Normal 0.0-38.1 [facility] Comment on above: Result Comment: [employer] Electrochemiluminescence Immunoassay(ECLIA)Values obtained with different assay methods or kits cannotbe used interchangeably. Results cannot be interpreted asabsolute evidence of the presence or absence of malignantdisease. Performed By: #### L 3100.5000, L3100.2300, L3100.5030, L3100.5040 ####[facility] [address] [place], [address] Carcinoembryonic Antigenon 1 CEA 3.1 ng/mL Normal 0.0-4.7 [facility] Comment on above: Result Comment: Nons mokers <3.9 Smokers <5.6[employer] Electrochemiluminescence Immunoassay(ECLIA)Values obtained with different assay methods or kitscannot be used interchangeably. Results cannot beinterpreted as absolute evidence of the presence orabsence of malignant disease. Performed By: #### L 3100.5000, L3100.2300, L3100.5030, L3100.5040 ####[facility] [address] [place], [address] CBC W/Diff, Automatedon 10- PLT EST SLT DEC Normal ADEQ [facility] Comment on above: Performed By: #### L 501.5200, L100.0100, L500.4050 ####[facility] [address] [place], [address] [facility] Albumin [Mass/Vol] 3.9 g/dL Normal 3.4-4.8 [facility] Comment on above: Performed By: #### L 501.5200, L100.0100, L500.4050 ####[facility] [address] [place], [address] Albumin/Globulin [Mass ratio] 1.3 {ratio} Normal 0.9-2.4 [facility] Comment on above: Performed By: #### L 501.5200, L100.0100, L500.4050 ####[facility] [address] [place], [address] ALK PHOS 81 U/L Normal 35-104 [facility] Comment on above: Performed By: #### L 501.5200, L100.0100, L500.4050 ####[facility] [address] [place], [address] ALT [Catalytic activity/Vol] 15 U/L Normal <=34 [facility] Comment on above: Performed By: #### L 501.5200, L100.0100, L500.4050 ####[facility] [address] [place], [address] AST [Catalytic activity/Vol] 18 U/L Normal <=31 [facility] Comment on above: Performed By: #### L 501.5200, L100.0100, L500.4050 ####[facility] [address] [place], [address] Bilirubin [Mass/Vol] 0.28 mg/dL Normal 0.00-1.30 [facility] Comment on above: Performed By: #### L 501.5200, L100.0100, L500.4050 ####[facility] [address] [place], [address] BUN/CRE 20.9 RATIO High 10-20 [facility] Comment on above: Performed By: #### L 501.5200, L100.0100, L500.4050 ####[facility] [address] [place], [address] Calcium [Mass/Vol] 9.5 mg/dL Normal 7.6-11.0 [facility] Comment on above: Performed By: #### L 501.5200, L100.0100, L500.4050 ####[facility] [address] [place], [address] Chloride [Moles/Vol] 105 mmol/L Normal 98-108 [facility] Comment on above: Performed By: #### L 501.5200, L100.0100, L500.4050 ####[facility] [address] [place], [address] CO2 [Moles/Vol] 22.1 mmol/L Normal 21.0-32.0 [facility] Comment on above: Performed By: #### L 501.5200, L100.0100, L500.4050 ####[facility] [address] [place], [address] Creatinine [Mass/Vol] 2.32 mg/dL High 0.70-1.20 [facility] Comment on above: Performed By: #### L 501.5200, L100.0100, L500.4050 ####[facility] [address] [place], [address] ECRCL 28.00 ml/min Low 50-250 [facility] Comment on above: Performed By: #### L 501.5200, L100.0100, L500.4050 ####[facility] [address] [place], [address] GAP 11 Normal 5-15 [facility] Comment on above: Performed By: #### L 501.5200, L100.0100, L500.4050 ####[facility] [address] [place], [address] GFR/1.73 sq M.predicted among non-blacks MDRD (S/P/Bld) [Vol rate/Area] 22 mL/min/{1.73_m2} Low >60 [facility] Comment on above: Result Comment: mL/m in/1.73m2 CKD-EPI Creatinine Equation (2020) Performed By: #### L 501.5200, L100.0100, L500.4050 ####[facility] [address] [place], [address] Globulin (S) [Mass/Vol] 3.0 g/dL Normal 2.2-4.2 [facility] Comment on above: Performed By: #### L 501.5200, L100.0100, L500.4050 ####[facility] [address] [place], [address] Glucose [Mass/Vol] 121 mg/dL High 70-99 [facility] Comment on above: Performed By: #### L 501.5200, L100.0100, L500.4050 ####[facility] [address] [place], [address] Potassium [Moles/Vol] 4.4 mmol/L Normal 3.3-5.1 [facility] Comment on above: Performed By: #### L 501.5200, L100.0100, L500.4050 ####[facility] [address] [place], [address] Sodium [Moles/Vol] 138 mmol/L Normal 133-145 [facility] Comment on above: Performed By: #### L 501.5200, L100.0100, L500.4050 ####[facility] [address] [place], [address] T PROT 7.0 g/dL Normal 5.9-8.4 [facility] Comment on above: Performed By: #### L 501.5200, L100.0100, L500.4050 ####[facility] [address] [place], [address] Urea nitrogen [Mass/Vol] 48 mg/dL High 4-19 [facility] Comment on above: Performed By: #### L 501.5200, L100.0100, L500.4050 ####[facility] [address] [place], [address] Magnesiumon 05-13-2025 Magnesium [Mass/Vol] 1.3 mg/dL Low 1.5-2.2 [facility] Comment on above: Performed By: #### L 501.5200, L100.0100, L500.4050 ####[facility] [address] [place], [address] Urinalysis, Completeon 05-13 BACTERIA Normal None Seen [facility] Comment on above: Order Comment: CLEAN CATCH Result Comment: NOT NEEDED Performed By: #### L 400.0001 ####[facility] [address] [place], [address] BILIRUBIN URINE Normal Negative [facility] Comment on above: Order Comment: CLEAN CATCH Result Comment: NOT NEEDED Performed By: #### L 400.0001 ####[facility] [address] [place], [address] Clarity (U) Normal Clear [facility] Comment on above: Order Comment: CLEAN CATCH Result Comment: NOT NEEDED Performed By: #### L 400.0001 ####[facility] [address] [place], [address] Color (U) Normal Yellow [facility] Comment on above: Order Comment: CLEAN CATCH Result Comment: NOT NEEDED Performed By: #### L 400.0001 ####[facility] [address] [place], [address] EPI,SQUAMOUS Normal 5-10 [facility] Comment on above: Order Comment: CLEAN CATCH Result Comment: NOT NEEDED Performed By: #### L 400.0001 ####[facility] [address] [place], [address] GLUCOSE, UR Normal Normal [facility] Comment on above: Order Comment: CLEAN CATCH Result Comment: NOT NEEDED Performed By: #### L 400.0001 ####[facility] [address] [place], [address] KETONE UR Normal Negative [facility] Comment on above: Order Comment: CLEAN CATCH Result Comment: NOT NEEDED Performed By: #### L 400.0001 ####[facility] [address] [place], [address] LEUK ESTERASE Normal Negative [facility] Comment on above: Order Comment: CLEAN CATCH Result Comment: NOT NEEDED Performed By: #### L 400.0001 ####[facility] [address] [place], [address] Mucus Ql (Urine sed) Normal [facility] Comment on above: Order Comment: CLEAN CATCH Result Comment: NOT NEEDED Performed By: #### L 400.0001 ####[facility] [address] [place], [address] Nitrite Ql (U) Normal Negative [facility] Comment on above: Order Comment: CLEAN CATCH Result Comment: NOT NEEDED Performed By: #### L 400.0001 ####[facility] [address] [place], [address] OCCULT BLOOD-UR Normal Negative [facility] Comment on above: Order Comment: CLEAN CATCH Result Comment: NOT NEEDED Performed By: #### L 400.0001 ####[facility] [address] [place], [address] pH UR Normal 5.0 - 8.0 [facility] Comment on above: Order Comment: CLEAN CATCH Result Comment: NOT NEEDED Performed By: #### L 400.0001 ####[facility] [address] [place], [address] PROT DIPSTX Normal Negative [facility] Comment on above: Order Comment: CLEAN CATCH Result Comment: NOT NEEDED Performed By: #### L 400.0001 ####[facility] [address] [place], [address] RBC Normal 0-5 [facility] Comment on above: Order Comment: CLEAN CATCH Result Comment: NOT NEEDED Performed By: #### L 400.0001 ####[facility] [address] [place], [address] SP.GR. DIPSTX Normal 1.002-1.03 0 [facility] Comment on above: Order Comment: CLEAN CATCH Result Comment: NOT NEEDED Performed By: #### L 400.0001 ####[facility] [address] [place], [address] UR Preservative Normal [facility] Comment on above: Order Comment: CLEAN CATCH Result Comment: NOT NEEDED Performed By: #### L 400.0001 ####[facility] [address] [place], [address] UROBILI Normal Normal [facility] Comment on above: Order Comment: CLEAN CATCH Result Comment: NOT NEEDED Performed By: #### L 400.0001 ####[facility] [address] [place], [address] WBC Normal 0-5 [facility] Comment on above: Order Comment: CLEAN CATCH Result Comment: NOT NEEDED Performed By: #### L 400.0001 ####[facility] [address] [place], [address] Orthopedic Visit Reporton Orthopedic Visit Report Normal [facility] Absolute lymphocyte countOrd ered By: David Corral on 05-06-2025 Lymphocytes Auto (Unsp spec) [#/Vol] 1.27 10*3/uL 0.83-4.51 [facility] Anion gap in Serum or Plasma Ordered By: David Castellonventura on 05-06-2025 Anion gap [Moles/Vol] 12 mmol/L 5- [facility] Automated lymphocyte count a s percentage of total leukocytesOrdered By: David Castellonventura on 05-06-2025 Lymphocytes/100 WBC Auto (Unsp spec) 31.4 % - [facility] BUN/creatinine ratioOrdered By: David [facility] on 05-06-2025 Urea nitrogen/Creatinine [Mass ratio] 21.3 mg/mg High 10- [facility] Basophil percentageOrdered B y: David Castellonventura on 05-06-2025 Basophils/100 WBC (Bld) 0.5 % 0-1 [facility] Bilirubin Test strip Ql (U)O rdered By: David Castellonventura on 05-06-2025 Bilirubin Ql (U) Negative Negative [facility] Bilirubin, totalOrdered By: David Castellonventura on 05-06-2025 Bilirubin [Mass/Vol] 0.50 mg/dL 0.00-1.30 [facility] CBC W/Diff, Automatedon Absolute Lymph 1.27 X10 3/uL Normal 0.83-4.51 [facility] Comment on above: Performed By: #### L 500.4050, L100.0100, L501.5200 ####[facility] [address] [place], [address] Absolute Neut 2.4 X10 3/uL Normal 2.0-7.7 [facility] Comment on above: Performed By: #### L 500.4050, L100.0100, L501.5200 ####[facility] [address] [place], [address] Basophils/100 WBC (Bld) 0.5 % Normal 0-1 [facility] Comment on above: Performed By: #### L 500.4050, L100.0100, L501.5200 ####[facility] [address] [place], [address] Eosinophils/100 WBC (Bld) 1.7 % Normal 0-5 [facility] Comment on above: Performed By: #### L 500.4050, L100.0100, L501.5200 ####[facility] [address] [place], [address] Erythrocyte distribution width (RBC) [Ratio] 15.9 % High 11.6-14.6 [facility] Comment on above: Performed By: #### L 500.4050, L100.0100, L501.5200 ####[facility] [address] [place], [address] Hematocrit (Bld) [Volume fraction] 28.6 % Low 37-47 [facility] Comment on above: Performed By: #### L 500.4050, L100.0100, L501.5200 ####[facility] [address] [place], [address] Hemoglobin (Bld) [Mass/Vol] 9.3 g/dL Low 12.0-15.0 [facility] Comment on above: Performed By: #### L 500.4050, L100.0100, L501.5200 ####[facility] [address] [place], [address] IG% 0.500 Normal 0.0-0.9 [facility] Comment on above: Result Comment: IG% - Immature Granulocytes (promyelocytes, myelocytes andmetamyelocytes) > 1% indicates that a LEFT SHIFT is Present. Performed By: #### L 500.4050, L100.0100, L501.5200 ####[facility] [address] [place], [address] Lymphocytes/100 WBC (Bld) 31.4 % Normal 19-41 [facility] Comment on above: Performed By: #### L 500.4050, L100.0100, L501.5200 ####[facility] [address] [place], [address] MCH (RBC) [Entitic mass] 32.6 pg High 27.0-32.0 [facility] Comment on above: Performed By: #### L 500.4050, L100.0100, L501.5200 ####[facility] [address] [place], [address] MCHC (RBC) [Mass/Vol] 32.5 g/dL Normal 32-36 [facility] Comment on above: Performed By: #### L 500.4050, L100.0100, L501.5200 ####[facility] [address] [place], [address] MCV (RBC) [Entitic vol] 100.4 fL High 81-99 [facility] Comment on above: Performed By: #### L 500.4050, L100.0100, L501.5200 ####[facility] [address] [place], [address] Monocytes/100 WBC (Bld) 6.7 % Normal 0-10 [facility] Comment on above: Performed By: #### L 500.4050, L100.0100, L501.5200 ####[facility] [address] [place], [address] Neutrophils/100 WBC (Bld) 59.2 % Normal 47-70 [facility] Comment on above: Performed By: #### L 500.4050, L100.0100, L501.5200 ####[facility] [address] [place], [address] Nucleated RBC (Bld) [#/Vol] 0 10*3/uL Normal 0-5 [facility] Comment on above: Performed By: #### L 500.4050, L100.0100, L501.5200 ####[facility] [address] [place], [address] Platelet mean volume (Bld) [Entitic vol] 12.0 fL Normal 6.2-12.0 [facility] Comment on above: Performed By: #### L 500.4050, L100.0100, L501.5200 ####[facility] [address] [place], [address] Platelets (Bld) [#/Vol] 108 10*3/uL Low 150-450 [facility] Comment on above: Performed By: #### L 500.4050, L100.0100, L501.5200 ####[facility] [address] [place], [address] RBC (Bld) [#/Vol] 2.85 10*6/uL Low 4.2-5.4 [facility] Comment on above: Performed By: #### L 500.4050, L100.0100, L501.5200 ####[facility] [address] [place], [address] RDW SD 57.9 fl High 35.1-43.9 [facility] Comment on above: Performed By: #### L 500.4050, L100.0100, L501.5200 ####[facility] [address] [place], [address] WBC (Bld) [#/Vol] 4.1 10*3/uL Low 4.4-11.0 [facility] Comment on above: Performed By: #### L 500.4050, L100.0100, L501.5200 ####[facility] [address] [place], [address] Carbon dioxide, total [Moles /volume] in Central venous bloodOrdered By: David Corral on 05-06-2025 CO2 [Moles/Vol] 22.9 mmol/L 21.0-32.0 [facility] Chloride assayOrdered By: Nisa Corral on 05-06-2025 Chloride [Moles/Vol] 106 mmol/L 98-108 [facility] Comprehensive Metabolic Prof ilon 05-06-2025 Albumin [Mass/Vol] 4.2 g/dL Normal 3.4-4.8 [facility] Comment on above: Performed By: #### L 500.4050, L100.0100, L501.5200 ####[facility] [address] [place], [address] Albumin/Globulin [Mass ratio] 1.4 {ratio} Normal 0.9-2.4 [facility] Comment on above: Performed By: #### L 500.4050, L100.0100, L501.5200 ####[facility] [address] [place], [address] ALK PHOS 78 U/L Normal 35-104 [facility] Comment on above: Performed By: #### L 500.4050, L100.0100, L501.5200 ####[facility] [address] [place], [address] ALT [Catalytic activity/Vol] 11 U/L Normal <=34 [facility] Comment on above: Performed By: #### L 500.4050, L100.0100, L501.5200 ####[facility] [address] [place], [address] AST [Catalytic activity/Vol] 17 U/L Normal <=31 [facility] Comment on above: Performed By: #### L 500.4050, L100.0100, L501.5200 ####[facility] [address] [place], [address] Bilirubin [Mass/Vol] 0.50 mg/dL Normal 0.00-1.30 [facility] Comment on above: Performed By: #### L 500.4050, L100.0100, L501.5200 ####[facility] [address] [place], [address] BUN/CRE 21.3 RATIO High 10-20 [facility] Comment on above: Performed By: #### L 500.4050, L100.0100, L501.5200 ####[facility] [address] [place], [address] Calcium [Mass/Vol] 9.8 mg/dL Normal 7.6-11.0 [facility] Comment on above: Performed By: #### L 500.4050, L100.0100, L501.5200 ####[facility] [address] [place], [address] Chloride [Moles/Vol] 106 mmol/L Normal 98-108 [facility] Comment on above: Performed By: #### L 500.4050, L100.0100, L501.5200 ####[facility] [address] [place], [address] CO2 [Moles/Vol] 22.9 mmol/L Normal 21.0-32.0 [facility] Comment on above: Performed By: #### L 500.4050, L100.0100, L501.5200 ####[facility] [address] [place], [address] Creatinine [Mass/Vol] 2.22 mg/dL High 0.70-1.20 [facility] Comment on above: Performed By: #### L 500.4050, L100.0100, L501.5200 ####[facility] [address] [place], [address] ECRCL 29.55 ml/min Low 50-250 [facility] Comment on above: Performed By: #### L 500.4050, L100.0100, L501.5200 ####[facility] [address] [place], [address] GAP 12 Normal 5-15 [facility] Comment on above: Performed By: #### L 500.4050, L100.0100, L501.5200 ####[facility] [address] [place], [address] GFR/1.73 sq M.predicted among non-blacks MDRD (S/P/Bld) [Vol rate/Area] 23 mL/min/{1.73_m2} Low >60 [facility] Comment on above: Result Comment: mL/m in/1.73m2 CKD-EPI Creatinine Equation (2020) Performed By: #### L 500.4050, L100.0100, L501.5200 ####[facility] [address] [place], [address] Globulin (S) [Mass/Vol] 3.1 g/dL Normal 2.2-4.2 [facility] Comment on above: Performed By: #### L 500.4050, L100.0100, L501.5200 ####[facility] [address] [place], [address] Glucose [Mass/Vol] 110 mg/dL High 70-99 [facility] Comment on above: Performed By: #### L 500.4050, L100.0100, L501.5200 ####[facility] [address] [place], [address] Potassium [Moles/Vol] 3.9 mmol/L Normal 3.3-5.1 [facility] Comment on above: Performed By: #### L 500.4050, L100.0100, L501.5200 ####[facility] [address] [place], [address] Sodium [Moles/Vol] 141 mmol/L Normal 133-145 [facility] Comment on above: Performed By: #### L 500.4050, L100.0100, L501.5200 ####[facility] [address] [place], [address] T PROT 7.2 g/dL Normal 5.9-8.4 [facility] Comment on above: Performed By: #### L 500.4050, L100.0100, L501.5200 ####[facility] [address] [place], [address] Urea nitrogen [Mass/Vol] 47 mg/dL High 4-19 [facility] Comment on above: Performed By: #### L 500.4050, L100.0100, L501.5200 ####[facility] [address] [place], [address] Eosinophil percentageOrdered By: David Corral on 05-06-2025 Eosinophils/100 WBC (Bld) 1.7 % 0-5 [facility] Erythrocyte distribution wid th ratioOrdered By: David Corral on 05-06-2025 Erythrocyte distribution width (RBC) [Ratio] 15.9 % High 11.6-14.6 [facility] Erythrocyte distribution wid th standard deviationOrdered By: David Corral on 05-06-2025 Erythrocyte distribution width (RBC) [Ratio] 57.9 fl High 35.1-43.9 [facility] Glomerular filtration rate ( GFR) estimation/1.73 sq m using serum, plasma, or whole bOrdered By: David Corral on 05-06-2025 GFR/1.73 sq M.predicted among non-blacks MDRD (S/P/Bld) [Vol rate/Area] 23 mL/min/{1.73_m2} Low >60 [facility] Hematocrit Auto (Bld) [Volum e fraction]Ordered By: David Corral on 05-06-2025 Hematocrit (Bld) [Volume fraction] 28.6 % Low 37-47 [facility] Hemoglobin measurementOrdere d By: David Corral on 05-06-2025 Hemoglobin (Bld) [Mass/Vol] 9.3 g/dL Low 12.0-15.0 [facility] Immature granulocytes/100 WB C Auto (Bld)Ordered By: David Corral on 05-06-2025 Immature granulocytes/100 WBC (Bld) 0.500 % 0.0-0.9 [facility] Ketones Test strip Ql (U)Ord ered By: David Corral on 05-06-2025 Ketones Ql (U) Negative Negative [facility] MCV (mean corpuscular volume ) determinationOrdered By: David Corral on 05-06-2025 MCV (RBC) [Entitic vol] 100.4 fL High 81-99 [facility] Magnesiumon 05-06-2025 Magnesium [Mass/Vol] 1.2 mg/dL Low 1.5-2.2 [facility] Comment on above: Performed By: #### L 500.4050, L100.0100, L501.5200 ####[facility] [address] [facility] [place], [address] Magnesium measurement (mass/ volume)Ordered By: David Corral on 05-06-2025 Magnesium (Unsp spec) [Mass/Vol] 1.2 mg/dL Low 1.5-2.2 [facility] Mean corpuscular hemoglobin (MCH) determinationOrdered By: David Corral on 05-06-2025 MCH (RBC) [Entitic mass] 32.6 pg High 27.0-32.0 [facility] Monocyte percentageOrdered B y: David Corral on 05-06-2025 Monocytes/100 WBC (Bld) 6.7 % 0-10 [facility] Mucus LM Ql (Urine sed)Order ed By: David Corral on 05-06-2025 Mucus Ql (Urine sed) 0 SEEN /hpf [facility] Neutrophil percentageOrdered By: David Corral on 05-06-2025 Neutrophils/100 WBC (Bld) 59.2 % 47-70 [facility] Nitrite Test strip Ql (U)Ord ered By: David Corral on 05-06-2025 Nitrite Ql (U) Negative Negative [facility] No Panel InformationOrdered By: David Corral on 05-06-2025 17 U/L <32 [facility] Oncology Visit Reporton 10-0 Oncology Visit Report Normal [facility] Platelet countOrdered By: Nisa Corral on 05-06-2025 Platelets (Bld) [#/Vol] 108 10*3/uL Low 150-450 [facility] Potassium measurement (mass/ volume)Ordered By: David Corral on 05-06-2025 Potassium (Unsp spec) [Mass/Vol] 3.9 mmol/L 3.3-5.1 [facility] Protein Test strip Ql (U)Ord ered By: David Corral on 05-06-2025 Protein Ql (U) 100 mg/dl High Negative [facility] RBC Auto (Bld) [#/Vol]Ordere d By: David Corral on 05-06-2025 RBC (Bld) [#/Vol] 2.85 10*6/uL Low 4.2-5.4 [facility] Serum creatinine measurement (mass/volume)Ordered By: David Corral on 05-06-2025 Creatinine [Mass/Vol] 2.22 mg/dL High 0.70-1.20 [facility] Serum globulin measurementOr dered By: David Corral on 05-06-2025 Globulin (S) [Mass/Vol] 3.1 g/dL 2.2-4.2 [facility] Serum glucose measurement (m ass/volume)Ordered By: David Corral on 05-06-2025 Glucose [Mass/Vol] 110 mg/dL High 70-99 [facility] Serum or plasma alanine garcia otransferase (ALT) measurementOrdered By: David Corral on 05-06-2025 ALT [Catalytic activity/Vol] 11 U/L <35 [facility] Serum or plasma albumin addie urement (mass/volume)Ordered By: David Corral on 05-06-2025 Albumin [Mass/Vol] 4.2 g/dL 3.4-4.8 [facility] Serum or plasma albumin/glob ulin mass ratioOrdered By: David Corral on 05-06-2025 Albumin/Globulin [Mass ratio] 1.4 {ratio} 0.9-2.4 [facility] Serum or plasma alkaline jabier sphatase measurementOrdered By: David Corral on 05-06-2025 ALP [Catalytic activity/Vol] 78 U/L 35-104 [facility] Serum or plasma calcium addie urement (mass/volume)Ordered By: David Corral on 05-06-2025 Calcium [Mass/Vol] 9.8 mg/dL 7.6-11.0 [facility] Serum or plasma urea nitroge n measurement (mass/volume)Ordered By: David Corral on 05-06-2025 Urea nitrogen [Mass/Vol] 47 mg/dL High 4-19 [facility] Sodium levelOrdered By: Jacky Corral on 05-06-2025 Sodium [Moles/Vol] 141 mmol/L 133-145 [facility] Squamous epithelial cells de tection in urine sediment by light microscopyOrdered By: David Corral on 05-06-2025 Epithelial cells.squamous LM Ql (Urine sed) 10-25 SEEN /hpf 5-10 [facility] Total proteinOrdered By: Leonard Corral on 05-06-2025 Protein [Mass/Vol] 7.2 g/dL 5.9-8.4 [facility] Urinalysis, Completeon 05-06 BACTERIA 2+ /hpf Normal None Seen [facility] Comment on above: Order Comment: FRANDY BRYANTOR TO SPECIFY Performed By: #### L 400.0001 ####[facility] [address] [place], [address] EPI,SQUAMOUS 10-25 SEEN Normal 5-10 [facility] Comment on above: Order Comment: FRANDY BRYANTOR TO SPECIFY Performed By: #### L 400.0001 ####[facility] [address] [place], [address] WBC 25-50 SEEN Normal 0-5 [facility] Comment on above: Order Comment: FRANDY CTOR TO SPECIFY Performed By: #### L 400.0001 ####[facility] [address] [place], [address] Mucus Ql (Urine sed) 0 SEEN Normal [facility] Comment on above: Order Comment: FRANDY CTOR TO SPECIFY Performed By: #### L 400.0001 ####[facility] [address] [place], [place], [id number] RBC 0 SEEN Normal 0-5 [facility] Comment on above: Order Comment: FRANDY CTOR TO SPECIFY Performed By: #### L 400.0001 ####[facility] [address] [place], [place], [id number] Urine clarityOrdered By: Leonard Corral on 05-06-2025 Clarity (U) Cloudy Clear [facility] Urine color determinationOrd ered By: David Corral on 05-06-2025 Color (U) Yellow Yellow [facility] Urine glucose detectionOrder ed By: David Corral on 05-06-2025 Glucose Ql (U) Normal mg/dl Normal [facility] Urine leukocyte esterase det ection by dipstickOrdered By: David Corral on 05-06-2025 Leukocyte esterase Test strip Ql (U) 500 /ul High Negative [facility] Urine pHOrdered By: David gillespie on 05-06-2025 pH (U) 6.0 [pH] 5.0 - 8.0 [facility] Urine sediment bacteria coun t by microscopy (number/high power field)Ordered By: David Corral on 05-06-2025 Bacteria LM.HPF (Urine sed) [#/Area] 2 /[HPF] None Seen [facility] Urine specific gravity measu rementOrdered By: David Corral on 05-06-2025 Specific gravity (U) [Rel density] 1.020 1.002-1.03 0 [facility] Urine urobilinogen measureme ntOrdered By: David Corral on 05-06-2025 Urobilinogen Ql (U) Normal mg/dl Normal [facility] White blood cell (WBC) count Ordered By: David Corral on 05-06-2025 WBC (Bld) [#/Vol] 4.1 10*3/uL Low 4.4-11.0 [facility] White blood cell countOrdere d By: David Corral on 05-06-2025 White blood cell count 25-50 SEEN /hpf 0-5 [facility] CBC W/Diff, Automatedon 10-0 1-2024 Absolute Lymph 0.97 X10 3/uL Normal 0.83-4.51 [facility] Comment on above: Performed By: #### L 500.4050, L501.5200, L100.0100 ####[facility] [address] [place], [address] Absolute Neut 2.0 X10 3/uL Normal 2.0-7.7 [facility] Comment on above: Performed By: #### L 500.4050, L501.5200, L100.0100 ####[facility] [address] [place], [address] Basophils/100 WBC (Bld) 0.9 % Normal 0-1 [facility] Comment on above: Performed By: #### L 500.4050, L501.5200, L100.0100 ####[facility] [address] [place], [address] Eosinophils/100 WBC (Bld) 3.3 % Normal 0-5 [facility] Comment on above: Performed By: #### L 500.4050, L501.5200, L100.0100 ####[facility] [address] [place], [address] Erythrocyte distribution width (RBC) [Ratio] 15.0 % High 11.6-14.6 [facility] Comment on above: Performed By: #### L 500.4050, L501.5200, L100.0100 ####[facility] [address] [place], [address] Hematocrit (Bld) [Volume fraction] 29.1 % Low 37-47 [facility] Comment on above: Performed By: #### L 500.4050, L501.5200, L100.0100 ####[facility] [address] [place], [address] Hemoglobin (Bld) [Mass/Vol] 9.4 g/dL Low 12.0-15.0 [facility] Comment on above: Performed By: #### L 500.4050, L501.5200, L100.0100 ####[facility] [address] [place], [address] IG% 0.600 Normal 0.0-0.9 [facility] Comment on above: Result Comment: IG% - Immature Granulocytes (promyelocytes, myelocytes andmetamyelocytes) > 1% indicates that a LEFT SHIFT is Present. Performed By: #### L 500.4050, L501.5200, L100.0100 ####[facility] [address] [place], [address] Lymphocytes/100 WBC (Bld) 28.9 % Normal 19-41 [facility] Comment on above: Performed By: #### L 500.4050, L501.5200, L100.0100 ####[facility] [address] [place], [address] MCH (RBC) [Entitic mass] 32.1 pg High 27.0-32.0 [facility] Comment on above: Performed By: #### L 500.4050, L501.5200, L100.0100 ####[facility] [address] [place], [address] MCHC (RBC) [Mass/Vol] 32.3 g/dL Normal 32-36 [facility] Comment on above: Performed By: #### L 500.4050, L501.5200, L100.0100 ####[facility] [address] [place], [address] MCV (RBC) [Entitic vol] 99.3 fL High 81-99 [facility] Comment on above: Performed By: #### L 500.4050, L501.5200, L100.0100 ####[facility] [address] [place], [address] Monocytes/100 WBC (Bld) 7.4 % Normal 0-10 [facility] Comment on above: Performed By: #### L 500.4050, L501.5200, L100.0100 ####[facility] [address] [place], [address] Neutrophils/100 WBC (Bld) 58.9 % Normal 47-70 [facility] Comment on above: Performed By: #### L 500.4050, L501.5200, L100.0100 ####[facility] [address] [place], [address] Nucleated RBC (Bld) [#/Vol] 0 10*3/uL Normal 0-5 [facility] Comment on above: Performed By: #### L 500.4050, L501.5200, L100.0100 ####[facility] [address] [place], [address] Platelet mean volume (Bld) [Entitic vol] 12.3 fL High 6.2-12.0 [facility] Comment on above: Performed By: #### L 500.4050, L501.5200, L100.0100 ####[facility] [address] [place], [address] Platelets (Bld) [#/Vol] 164 10*3/uL Normal 150-450 [facility] Comment on above: Performed By: #### L 500.4050, L501.5200, L100.0100 ####[facility] [address] [place], [address] RBC (Bld) [#/Vol] 2.93 10*6/uL Low 4.2-5.4 [facility] Comment on above: Performed By: #### L 500.4050, L501.5200, L100.0100 ####[facility] [address] [place], [address] RDW SD 54.2 fl High 35.1-43.9 [facility] Comment on above: Performed By: #### L 500.4050, L501.5200, L100.0100 ####[facility] [address] [place], [address] WBC (Bld) [#/Vol] 3.4 10*3/uL Low 4.4-11.0 [facility] Comment on above: Performed By: #### L 500.4050, L501.5200, L100.0100 ####[facility] [address] [place], [address] Comprehensive Metabolic Prof ilon 04-29-2025 Albumin [Mass/Vol] 4.0 g/dL Normal 3.4-4.8 [facility] Comment on above: Performed By: #### L 500.4050, L501.5200, L100.0100 ####[facility] [address] [place], [address] Albumin/Globulin [Mass ratio] 1.3 {ratio} Normal 0.9-2.4 [facility] Comment on above: Performed By: #### L 500.4050, L501.5200, L100.0100 ####[facility] [address] [place], [address] ALK PHOS 78 U/L Normal 35-104 [facility] Comment on above: Performed By: #### L 500.4050, L501.5200, L100.0100 ####[facility] [address] [place], [address] ALT [Catalytic activity/Vol] 12 U/L Normal <=34 [facility] Comment on above: Performed By: #### L 500.4050, L501.5200, L100.0100 ####[facility] [address] [place], [address] AST [Catalytic activity/Vol] 17 U/L Normal <=31 [facility] Comment on above: Performed By: #### L 500.4050, L501.5200, L100.0100 ####[facility] [address] [place], [address] Bilirubin [Mass/Vol] 0.48 mg/dL Normal 0.00-1.30 [facility] Comment on above: Performed By: #### L 500.4050, L501.5200, L100.0100 ####[facility] [address] [place], [address] BUN/CRE 23.1 RATIO High 10-20 [facility] Comment on above: Performed By: #### L 500.4050, L501.5200, L100.0100 ####[facility] [address] [place], [address] Calcium [Mass/Vol] 9.5 mg/dL Normal 7.6-11.0 [facility] [facility] Comment on above: Performed By: #### L 500.4050, L501.5200, L100.0100 ####[facility] [address] [place], [address] Chloride [Moles/Vol] 107 mmol/L Normal 98-108 [facility] Comment on above: Performed By: #### L 500.4050, L501.5200, L100.0100 ####[facility] [address] [place], [address] CO2 [Moles/Vol] 21.6 mmol/L Normal 21.0-32.0 [facility] Comment on above: Performed By: #### L 500.4050, L501.5200, L100.0100 ####[facility] [address] [place], [address] Creatinine [Mass/Vol] 2.08 mg/dL High 0.70-1.20 [facility] Comment on above: Performed By: #### L 500.4050, L501.5200, L100.0100 ####[facility] [address] [place], [address] ECRCL 31.53 ml/min Low 50-250 [facility] Comment on above: Performed By: #### L 500.4050, L501.5200, L100.0100 ####[facility] [address] [place], [address] GAP 13 Normal 5-15 [facility] Comment on above: Performed By: #### L 500.4050, L501.5200, L100.0100 ####[facility] [address] [place], [address] GFR/1.73 sq M.predicted among non-blacks MDRD (S/P/Bld) [Vol rate/Area] 25 mL/min/{1.73_m2} Low >60 [facility] Comment on above: Result Comment: mL/m in/1.73m2 CKD-EPI Creatinine Equation (2020) Performed By: #### L 500.4050, L501.5200, L100.0100 ####[facility] [address] [place], [address] Globulin (S) [Mass/Vol] 3.1 g/dL Normal 2.2-4.2 [facility] Comment on above: Performed By: #### L 500.4050, L501.5200, L100.0100 ####[facility] [address] [place], [address] Glucose [Mass/Vol] 106 mg/dL High 70-99 [facility] Comment on above: Performed By: #### L 500.4050, L501.5200, L100.0100 ####[facility] [facility] [address] [place], [address] Potassium [Moles/Vol] 3.8 mmol/L Normal 3.3-5.1 [facility] Comment on above: Performed By: #### L 500.4050, L501.5200, L100.0100 ####[facility] [address] [place], [address] Sodium [Moles/Vol] 141 mmol/L Normal 133-145 [facility] Comment on above: Performed By: #### L 500.4050, L501.5200, L100.0100 ####[facility] [address] [place], [address] T PROT 7.1 g/dL Normal 5.9-8.4 [facility] Comment on above: Performed By: #### L 500.4050, L501.5200, L100.0100 ####[facility] [address] [place], [address] Urea nitrogen [Mass/Vol] 48 mg/dL High 4-19 [facility] Comment on above: Performed By: #### L 500.4050, L501.5200, L100.0100 ####[facility] [address] [place], [address] Magnesiumon 04-29-2025 Magnesium [Mass/Vol] 1.1 mg/dL Low 1.5-2.2 [facility] Comment on above: Performed By: #### L 500.4050, L501.5200, L100.0100 ####[facility] [address] [place], [address] Absolute lymphocyte countOrd ered By: David Corral on 04-22-2025 Lymphocytes Auto (Unsp spec) [#/Vol] 1.15 10*3/uL 0.83-4.51 [facility] Anion gap in Serum or Plasma Ordered By: David Corral on 04-22-2025 Anion gap [Moles/Vol] 12 mmol/L 5-15 [facility] Automated blood erythrocyte countOrdered By: David Corral on 04-22-2025 RBC (Bld) [#/Vol] 3.16 10*6/uL Low 4.2-5.4 [facility] Comment on above: Performed By: #### L 100.0100, L501.5200, L500.4050 ####[facility] [address] [facility] [address] Automated blood hematocrit ( percentage)Ordered By: David Corral on 04-22-2025 Hematocrit (Bld) [Volume fraction] 31.2 % Low 37-47 [facility] Comment on above: Performed By: #### L 100.0100, L501.5200, L500.4050 ####[facility] [address] [facility] [id number] Automated lymphocyte count a s percentage of total leukocytesOrdered By: David Corral on 04-22-2025 Lymphocytes/100 WBC Auto (Unsp spec) 23.0 % 19-41 [facility] BUN/creatinine ratioOrdered By: David Corral on 04-22-2025 Urea nitrogen/Creatinine [Mass ratio] 18.9 mg/mg 10-20 [facility] Basophil percentageOrdered B y: David Corral on 04-22-2025 Basophils/100 WBC (Bld) 0.4 % Normal 0-1 [facility] Comment on above: Performed By: #### L 100.0100, L501.5200, L500.4050 ####[facility] [address] [place], [place], [address] Bilirubin, totalOrdered By: David Corral on 04-22-2025 Bilirubin [Mass/Vol] 0.25 mg/dL 0.00-1.30 [facility] CBC W/Diff, Automatedon 03-31 Absolute Lymph 1.15 X10 3/uL Normal 0.83-4.51 [facility] Comment on above: Performed By: #### L 100.0100, L501.5200, L500.4050 ####[facility] [address] [place], [address] Absolute Neut 3.4 X10 3/uL Normal 2.0-7.7 [facility] Comment on above: Performed By: #### L 100.0100, L501.5200, L500.4050 ####[facility] [address] [place], [address] IG% 0.800 Normal 0.0-0.9 [facility] Comment on above: Result Comment: IG% - Immature Granulocytes (promyelocytes, myelocytes andmetamyelocytes) > 1% indicates that a LEFT SHIFT is Present. Performed By: #### L 100.0100, L501.5200, L500.4050 ####[facility] [address] [place], [address] Lymphocytes/100 WBC (Bld) 23.0 % Normal 19-41 [facility] Comment on above: Performed By: #### L 100.0100, L501.5200, L500.4050 ####[facility] [address] [place], [address] MCHC (RBC) [Mass/Vol] 33.3 g/dL Normal 32-36 [facility] Comment on above: Performed By: #### L 100.0100, L501.5200, L500.4050 ####[facility] [address] [place], [address] Nucleated RBC (Bld) [#/Vol] 0 10*3/uL Normal 0-5 [facility] Comment on above: Performed By: #### L 100.0100, L501.5200, L500.4050 ####[facility] [address] [place], [address] Platelet mean volume (Bld) [Entitic vol] 12.9 fL High 6.2-12.0 [facility] Comment on above: Performed By: #### L 100.0100, L501.5200, L500.4050 ####[facility] [address] [place], [address] RDW SD 53.8 fl High 35.1-43.9 [facility] Comment on above: Performed By: #### L 100.0100, L501.5200, L500.4050 ####[facility] [address] [place], [address] Carbon dioxide, total [Moles /volume] in Central venous bloodOrdered By: David Corral on 04-22-2025 CO2 [Moles/Vol] 21.7 mmol/L 21.0-32.0 [facility] Chloride assayOrdered By: Nisa Corral on 04-22-2025 Chloride [Moles/Vol] 107 mmol/L 98-108 [facility] Comprehensive Metabolic Prof ilon 04-22-2025 Albumin [Mass/Vol] 3.9 g/dL Normal 3.4-4.8 [facility] Comment on above: Performed By: #### L 100.0100, L501.5200, L500.4050 ####[facility] [address] [place], [address] Albumin/Globulin [Mass ratio] 1.1 {ratio} Normal 0.9-2.4 [facility] Comment on above: Performed By: #### L 100.0100, L501.5200, L500.4050 ####[facility] [address] [place], [address] ALK PHOS 111 U/L High 35-104 [facility] Comment on above: Performed By: #### L 100.0100, L501.5200, L500.4050 ####[facility] [address] [place], [address] ALT [Catalytic activity/Vol] 10 U/L Normal <=34 [facility] Comment on above: Performed By: #### L 100.0100, L501.5200, L500.4050 ####[facility] [address] [place], [address] AST [Catalytic activity/Vol] 17 U/L Normal <=31 [facility] Comment on above: Performed By: #### L 100.0100, L501.5200, L500.4050 ####[facility] [address] [place], [address] Bilirubin [Mass/Vol] 0.25 mg/dL Normal 0.00-1.30 [facility] Comment on above: Performed By: #### L 100.0100, L501.5200, L500.4050 ####[facility] [address] [place], [address] BUN/CRE 18.9 RATIO Normal 10-20 [facility] Comment on above: Performed By: #### L 100.0100, L501.5200, L500.4050 ####[facility] [address] [place], [address] Calcium [Mass/Vol] 9.6 mg/dL Normal 7.6-11.0 [facility] Comment on above: Performed By: #### L 100.0100, L501.5200, L500.4050 ####[facility] [address] [place], [address] Chloride [Moles/Vol] 107 mmol/L Normal 98-108 [facility] Comment on above: Performed By: #### L 100.0100, L501.5200, L500.4050 ####[facility] [address] [place], [address] CO2 [Moles/Vol] 21.7 mmol/L Normal 21.0-32.0 [facility] Comment on above: Performed By: #### L 100.0100, L501.5200, L500.4050 ####[facility] [address] [place], [address] Creatinine [Mass/Vol] 2.66 mg/dL High 0.70-1.20 [facility] Comment on above: Performed By: #### L 100.0100, L501.5200, L500.4050 ####[facility] [address] [place], [address] ECRCL 24.70 ml/min Low 50-250 [facility] Comment on above: Performed By: #### L 100.0100, L501.5200, L500.4050 ####[facility] [address] [place], [address] GAP 12 Normal 5-15 [facility] Comment on above: Performed By: #### L 100.0100, L501.5200, L500.4050 ####[facility] [address] [place], [address] GFR/1.73 sq M.predicted among non-blacks MDRD (S/P/Bld) [Vol rate/Area] 19 mL/min/{1.73_m2} Low >60 [facility] Comment on above: Result Comment: mL/m in/1.73m2 CKD-EPI Creatinine Equation (2020) Performed By: #### L 100.0100, L501.5200, L500.4050 ####[facility] [address] [place], [address] Globulin (S) [Mass/Vol] 3.5 g/dL Normal 2.2-4.2 [facility] Comment on above: Performed By: #### L 100.0100, L501.5200, L500.4050 ####[facility] [address] [place], [address] Glucose [Mass/Vol] 115 mg/dL High 70-99 [facility] Comment on above: Performed By: #### L 100.0100, L501.5200, L500.4050 ####[facility] [address] [place], [address] Potassium [Moles/Vol] 4.1 mmol/L Normal 3.3-5.1 [facility] Comment on above: Performed By: #### L 100.0100, L501.5200, L500.4050 ####[facility] [address] [place], [address] Sodium [Moles/Vol] 141 mmol/L Normal 133-145 [facility] Comment on above: Performed By: #### L 100.0100, L501.5200, L500.4050 ####[facility] [address] [place], [address] T PROT 7.4 g/dL Normal 5.9-8.4 [facility] Comment on above: Performed By: #### L 100.0100, L501.5200, L500.4050 ####[facility] [address] [place], [address] Urea nitrogen [Mass/Vol] 50 mg/dL High 4-19 [facility] Comment on above: Performed By: #### L 100.0100, L501.5200, L500.4050 ####[facility] [address] [place], [address] Eosinophil percentageOrdered By: David Corral on 04-22-2025 Eosinophils/100 WBC (Bld) 3.0 % Normal 0-5 [facility] Comment on above: Performed By: #### L 100.0100, L501.5200, L500.4050 ####[facility] [address] [place], [address] Erythrocyte distribution wid th ratioOrdered By: aDvid Corral on 04-22-2025 Erythrocyte distribution width (RBC) [Ratio] 14.7 % High 11.6-14.6 [facility] Comment on above: Performed By: #### L 100.0100, L501.5200, L500.4050 ####[facility] [address] [place], [address] Erythrocyte distribution wid th standard deviationOrdered By: David Corral on 04-22-2025 Erythrocyte distribution width (RBC) [Ratio] 53.8 fl High 35.1-43.9 [facility] Glomerular filtration rate ( GFR) estimation/1.73 sq m using serum, plasma, or whole bOrdered By: David Corral on 04-22-2025 GFR/1.73 sq M.predicted among non-blacks MDRD (S/P/Bld) [Vol rate/Area] 19 mL/min/{1.73_m2} Low >60 [facility] Hemoglobin measurementOrdere d By: David Corral on 04-22-2025 Hemoglobin (Bld) [Mass/Vol] 10.4 g/dL Low 12.0-15.0 [facility] Comment on above: Performed By: #### L 100.0100, L501.5200, L500.4050 ####[facility] [address] [place], [address] Immature granulocytes/100 WB C Auto (Bld)Ordered By: David Corral on 04-22-2025 Immature granulocytes/100 WBC (Bld) 0.800 % 0.0-0.9 [facility] MCV (mean corpuscular volume ) determinationOrdered By: David Corral on 04-22-2025 MCV (RBC) [Entitic vol] 98.7 fL Normal 81-99 [facility] Comment on above: Performed By: #### L 100.0100, L501.5200, L500.4050 ####[facility] [address] [place], [address] Magnesiumon 04-22-2025 Magnesium [Mass/Vol] 1.3 mg/dL Low 1.5-2.2 [facility] Comment on above: Performed By: #### L 100.0100, L501.5200, L500.4050 ####[facility] [address] [place], [address] Magnesium measurement (mass/ volume)Ordered By: David Corral on 04-22-2025 Magnesium (Unsp spec) [Mass/Vol] 1.3 mg/dL Low 1.5-2.2 [facility] Mean corpuscular hemoglobin (MCH) determinationOrdered By: David Corral on 04-22-2025 MCH (RBC) [Entitic mass] 32.9 pg High 27.0-32.0 [facility] Comment on above: Performed By: #### L 100.0100, L501.5200, L500.4050 ####[facility] [address] [place], [address] Monocyte percentageOrdered B y: David Corral on 04-22-2025 Monocytes/100 WBC (Bld) 4.8 % Normal 0-10 [facility] Comment on above: Performed By: #### L 100.0100, L501.5200, L500.4050 ####[facility] [address] [place], [address] Neutrophil percentageOrdered By: David Corral on 04-22-2025 Neutrophils/100 WBC (Bld) 68.0 % Normal 47-70 [facility] Comment on above: Performed By: #### L 100.0100, L501.5200, L500.4050 ####[facility] [address] [place], [address] No Panel InformationOrdered By: David Corarl on 04-22-2025 17 U/L <32 [facility] Oncology Visit Reporton 03-31 Oncology Visit Report Normal [facility] Platelet countOrdered By: Nisa Corral on 04-22-2025 Platelets (Bld) [#/Vol] 201 10*3/uL Normal 150-450 [facility] Comment on above: Performed By: #### L 100.0100, L501.5200, L500.4050 ####[facility] [address] [place], [address] Potassium measurement (mass/ volume)Ordered By: David Corral on 04-22-2025 Potassium (Unsp spec) [Mass/Vol] 4.1 mmol/L 3.3-5.1 [facility] Serum creatinine measurement (mass/volume)Ordered By: David Corral on 04-22-2025 Creatinine [Mass/Vol] 2.66 mg/dL High 0.70-1.20 [facility] Serum globulin measurementOr dered By: David Corral on 04-22-2025 Globulin (S) [Mass/Vol] 3.5 g/dL 2.2-4.2 [facility] Serum glucose measurement (m ass/volume)Ordered By: David Corral on 04-22-2025 Glucose [Mass/Vol] 115 mg/dL High 70-99 [facility] Serum or plasma alanine garcia otransferase (ALT) measurementOrdered By: David Corral on 04-22-2025 ALT [Catalytic activity/Vol] 10 U/L <35 [facility] Serum or plasma albumin addie urement (mass/volume)Ordered By: David Corral on 04-22-2025 Albumin [Mass/Vol] 3.9 g/dL 3.4-4.8 [facility] Serum or plasma albumin/glob ulin mass ratioOrdered By: David Corral on 04-22-2025 Albumin/Globulin [Mass ratio] 1.1 {ratio} 0.9-2.4 [facility] Serum or plasma alkaline jabier sphatase measurementOrdered By: David Corral on 04-22-2025 ALP [Catalytic activity/Vol] 111 U/L High 35-104 [facility] Serum or plasma calcium addie urement (mass/volume)Ordered By: David Corral on 04-22-2025 Calcium [Mass/Vol] 9.6 mg/dL 7.6-11.0 [facility] Serum or plasma urea nitroge n measurement (mass/volume)Ordered By: David Corral on 04-22-2025 Urea nitrogen [Mass/Vol] 50 mg/dL High 4-19 [facility] Sodium levelOrdered By: Jacky Corral on 04-22-2025 Sodium [Moles/Vol] 141 mmol/L 133-145 [facility] Total proteinOrdered By: Leonardgabriella Corral on 04-22-2025 Protein [Mass/Vol] 7.4 g/dL 5.9-8.4 [facility] White blood cell (WBC) count Ordered By: David Corral on 04-22-2025 WBC (Bld) [#/Vol] 5.0 10*3/uL Normal 4.4-11.0 [facility] Comment on above: Performed By: #### L 100.0100, L501.5200, L500.4050 ####[facility] [address] [place], [address] Internal Medicine Office Vis iton 04-16-2025 Internal Medicine Office Visit Normal [facility] Absolute lymphocyte countOrd ered By: David Corral on 04-15-2025 Lymphocytes Auto (Unsp spec) [#/Vol] 1.14 10*3/uL 0.83-4.51 [facility] Anion gap in Serum or Plasma Ordered By: David oCrral on 04-15-2025 Anion gap [Moles/Vol] 13 mmol/L 5-15 [facility] Automated lymphocyte count a s percentage of total leukocytesOrdered By: David Corral on 04-15-2025 Lymphocytes/100 WBC Auto (Unsp spec) 20.9 % 19-41 [facility] BUN/creatinine ratioOrdered By: David Corral on 04-15-2025 Urea nitrogen/Creatinine [Mass ratio] 17.6 mg/mg 10-20 [facility] Basophil percentageOrdered B y: David Corral on 04-15-2025 Basophils/100 WBC (Bld) 0.2 % 0-1 [facility] Bilirubin Test strip Ql (U)O rdered By: David Corral on 04-15-2025 Bilirubin Ql (U) Negative Negative [facility] Bilirubin, totalOrdered By: David Corral on 04-15-2025 Bilirubin [Mass/Vol] 0.28 mg/dL 0.00-1.30 [facility] CBC W/Diff, Automatedon 03-30 Absolute Lymph 1.14 X10 3/uL Normal 0.83-4.51 [facility] Comment on above: Performed By: #### L 100.0100, L501.5200, L500.4050 ####[facility] [address] [place], [address] Absolute Neut 3.6 X10 3/uL Normal 2.0-7.7 [facility] Comment on above: Performed By: #### L 100.0100, L501.5200, L500.4050 ####[facility] [address] [place], [address] Basophils/100 WBC (Bld) 0.2 % Normal 0-1 [facility] Comment on above: Performed By: #### L 100.0100, L501.5200, L500.4050 ####[facility] [address] [place], [address] Eosinophils/100 WBC (Bld) 3.5 % Normal 0-5 [facility] Comment on above: Performed By: #### L 100.0100, L501.5200, L500.4050 ####[facility] [address] [place], [address] Erythrocyte distribution width (RBC) [Ratio] 15.8 % High 11.6-14.6 [facility] Comment on above: Performed By: #### L 100.0100, L501.5200, L500.4050 ####[facility] [address] [place], [address] Hematocrit (Bld) [Volume fraction] 29.2 % Low 37-47 [facility] Comment on above: Performed By: #### L 100.0100, L501.5200, L500.4050 ####[facility] [address] [place], [address] Hemoglobin (Bld) [Mass/Vol] 9.9 g/dL Low 12.0-15.0 [facility] Comment on above: Performed By: #### L 100.0100, L501.5200, L500.4050 ####[facility] [address] [place], [address] IG% 0.400 Normal 0.0-0.9 [facility] Comment on above: Result Comment: IG% - Immature Granulocytes (promyelocytes, myelocytes andmetamyelocytes) > 1% indicates that a LEFT SHIFT is Present. Performed By: #### L 100.0100, L501.5200, L500.4050 ####[facility] [address] [place], [address] Lymphocytes/100 WBC (Bld) 20.9 % Normal 19-41 [facility] Comment on above: Performed By: #### L 100.0100, L501.5200, L500.4050 ####[facility] [address] [place], [address] MCH (RBC) [Entitic mass] 33.2 pg High 27.0-32.0 [facility] Comment on above: Performed By: #### L 100.0100, L501.5200, L500.4050 ####[facility] [address] [place], [address] MCHC (RBC) [Mass/Vol] 33.9 g/dL Normal 32-36 [facility] Comment on above: Performed By: #### L 100.0100, L501.5200, L500.4050 ####[facility] [address] [place], [address] MCV (RBC) [Entitic vol] 98.0 fL Normal 81-99 [facility] Comment on above: Performed By: #### L 100.0100, L501.5200, L500.4050 ####[facility] [address] [place], [address] Monocytes/100 WBC (Bld) 9.5 % Normal 0-10 [facility] Comment on above: Performed By: #### L 100.0100, L501.5200, L500.4050 ####[facility] [address] [place], [address] Neutrophils/100 WBC (Bld) 65.5 % Normal 47-70 [facility] Comment on above: Performed By: #### L 100.0100, L501.5200, L500.4050 ####[facility] [address] [place], [address] Nucleated RBC (Bld) [#/Vol] 0 10*3/uL Normal 0-5 [facility] Comment on above: Performed By: #### L 100.0100, L501.5200, L500.4050 ####[facility] [address] [place], [address] Platelet mean volume (Bld) [Entitic vol] 11.4 fL Normal 6.2-12.0 [facility] Comment on above: Performed By: #### L 100.0100, L501.5200, L500.4050 ####[facility] [address] [place], [address] Platelets (Bld) [#/Vol] 146 10*3/uL Low 150-450 [facility] Comment on above: Performed By: #### L 100.0100, L501.5200, L500.4050 ####[facility] [address] [place], [address] RBC (Bld) [#/Vol] 2.98 10*6/uL Low 4.2-5.4 [facility] Comment on above: Performed By: #### L 100.0100, L501.5200, L500.4050 ####[facility] [facility] [address] [place], [address] RDW SD 55.6 fl High 35.1-43.9 [facility] Comment on above: Performed By: #### L 100.0100, L501.5200, L500.4050 ####[facility] [address] [place], [address] WBC (Bld) [#/Vol] 5.5 10*3/uL Normal 4.4-11.0 [facility] Comment on above: Performed By: #### L 100.0100, L501.5200, L500.4050 ####[facility] [address] [place], [address] Carbon dioxide, total [Moles /volume] in Central venous bloodOrdered By: David Corral on 04-15-2025 CO2 [Moles/Vol] 22.1 mmol/L 21.0-32.0 [facility] Chloride assayOrdered By: Nisa Corral on 04-15-2025 Chloride [Moles/Vol] 106 mmol/L 98-108 [facility] Comprehensive Metabolic Prof ilon 04-15-2025 Albumin [Mass/Vol] 3.9 g/dL Normal 3.4-4.8 [facility] Comment on above: Performed By: #### L 100.0100, L501.5200, L500.4050 ####[facility] [address] [place], [address] Albumin/Globulin [Mass ratio] 1.3 {ratio} Normal 0.9-2.4 [facility] Comment on above: Performed By: #### L 100.0100, L501.5200, L500.4050 ####[facility] [address] [place], [address] ALK PHOS 95 U/L Normal 35-104 [facility] Comment on above: Performed By: #### L 100.0100, L501.5200, L500.4050 ####[facility] [address] [place], [address] ALT [Catalytic activity/Vol] 11 U/L Normal <=34 [facility] Comment on above: Performed By: #### L 100.0100, L501.5200, L500.4050 ####[facility] [address] [place], [address] AST [Catalytic activity/Vol] 16 U/L Normal <=31 [facility] Comment on above: Performed By: #### L 100.0100, L501.5200, L500.4050 ####[facility] [address] [place], [address] Bilirubin [Mass/Vol] 0.28 mg/dL Normal 0.00-1.30 [facility] Comment on above: Performed By: #### L 100.0100, L501.5200, L500.4050 ####[facility] [address] [place], [address] BUN/CRE 17.6 RATIO Normal 10-20 [facility] Comment on above: Performed By: #### L 100.0100, L501.5200, L500.4050 ####[facility] [address] [place], [address] Calcium [Mass/Vol] 9.4 mg/dL Normal 7.6-11.0 [facility] Comment on above: Performed By: #### L 100.0100, L501.5200, L500.4050 ####[facility] [address] [place], [address] Chloride [Moles/Vol] 106 mmol/L Normal 98-108 [facility] Comment on above: Performed By: #### L 100.0100, L501.5200, L500.4050 ####[facility] [address] [place], [address] CO2 [Moles/Vol] 22.1 mmol/L Normal 21.0-32.0 [facility] Comment on above: Performed By: #### L 100.0100, L501.5200, L500.4050 ####[facility] [address] [place], [address] Creatinine [Mass/Vol] 2.21 mg/dL High 0.70-1.20 [facility] Comment on above: Performed By: #### L 100.0100, L501.5200, L500.4050 ####[facility] [address] [place], [address] ECRCL 30.60 ml/min Low 50-250 [facility] Comment on above: Performed By: #### L 100.0100, L501.5200, [id number] ####[facility] [address] [place], [address] GAP 13 Normal 5-15 [facility] Comment on above: Performed By: #### L 100.0100, L501.5200, [id number] ####[facility] [address] [place], [address] GFR/1.73 sq M.predicted among non-blacks MDRD (S/P/Bld) [Vol rate/Area] 24 mL/min/{1.73_m2} Low >60 [facility] Comment on above: Result Comment: mL/m in/1.73m2 CKD-EPI Creatinine Equation (2020) Performed By: #### L 100.0100, L501.5200, L500.4050 ####[facility] [address] [place], [address] Globulin (S) [Mass/Vol] 3.1 g/dL Normal 2.2-4.2 [facility] Comment on above: Performed By: #### L 100.0100, L501.5200, L500.4050 ####[facility] [address] [place], [address] Glucose [Mass/Vol] 125 mg/dL High 70-99 [facility] Comment on above: Performed By: #### L 100.0100, L501.5200, [id number] ####[facility] [address] [place], [address] Potassium [Moles/Vol] 4.4 mmol/L Normal 3.3-5.1 [facility] Comment on above: Performed By: #### L 100.0100, L501.5200, [id number] ####[facility] [address] [place], [address] Sodium [Moles/Vol] 141 mmol/L Normal 133-145 [facility] Comment on above: Performed By: #### L 100.0100, L501.5200, L500.4050 ####[facility] [address] [place], [address] T PROT 7.0 g/dL Normal 5.9-8.4 [facility] Comment on above: Performed By: #### L 100.0100, L501.5200, L500.4050 ####[facility] [address] [place], [address] Urea nitrogen [Mass/Vol] 39 mg/dL High 4-19 [facility] Comment on above: Performed By: #### L 100.0100, L501.5200, L500.4050 ####[facility] [address] [place], [address] Eosinophil percentageOrdered By: David Corral on 04-15-2025 Eosinophils/100 WBC (Bld) 3.5 % 0-5 [facility] Erythrocyte distribution wid th ratioOrdered By: David Corral on 04-15-2025 Erythrocyte distribution width (RBC) [Ratio] 15.8 % High 11.6-14.6 [facility] Erythrocyte distribution wid th standard deviationOrdered By: David Corral on 04-15-2025 Erythrocyte distribution width (RBC) [Ratio] 55.6 fl High 35.1-43.9 [facility] Glomerular filtration rate ( GFR) estimation/1.73 sq m using serum, plasma, or whole bOrdered By: David Corral on 04-15-2025 GFR/1.73 sq M.predicted among non-blacks MDRD (S/P/Bld) [Vol rate/Area] 24 mL/min/{1.73_m2} Low >60 [facility] Hematocrit Auto (Bld) [Volum e fraction]Ordered By: David Castellon on 04-15-2025 Hematocrit (Bld) [Volume fraction] 29.2 % Low 37-47 [facility] Hemoglobin measurementOrdere d By: David Corral on 04-15-2025 Hemoglobin (Bld) [Mass/Vol] 9.9 g/dL Low 12.0-15.0 [facility] Immature granulocytes/100 WB C Auto (Bld)Ordered By: [facility] on 04-15-2025 Immature granulocytes/100 WBC (Bld) 0.400 % 0.0-0.9 [facility] Ketones Test strip Ql (U)Ord ered By: [facility] on 04-15-2025 Ketones Ql (U) Negative Negative [facility] MCV (mean corpuscular volume ) determinationOrdered By: David Corral on 04-15-2025 MCV (RBC) [Entitic vol] 98.0 fL 81-99 [facility] Magnesiumon 04-15-2025 Magnesium [Mass/Vol] 1.4 mg/dL Low 1.5-2.2 [facility] Comment on above: Performed By: #### L 100.0100, L501.5200, L500.4050 ####[facility] [address] [place], [address] Magnesium measurement (mass/ volume)Ordered By: David Castellon on 04-15-2025 Magnesium (Unsp spec) [Mass/Vol] 1.4 mg/dL Low 1.5-2.2 [facility] Mean corpuscular hemoglobin (MCH) determinationOrdered By: David Corral on 04-15-2025 MCH (RBC) [Entitic mass] 33.2 pg High 27.0-32.0 [facility] Monocyte percentageOrdered B y: David Corral on 04-15-2025 Monocytes/100 WBC (Bld) 9.5 % 0-10 [facility] Mucus LM Ql (Urine sed)Order ed By: David Corral on 04-15-2025 Mucus Ql (Urine sed) 0 SEEN /hpf [facility] Neutrophil percentageOrdered By: David Corral on 04-15-2025 Neutrophils/100 WBC (Bld) 65.5 % 47-70 [facility] Nitrite Test strip Ql (U)Ord ered By: David Corral on 04-15-2025 Nitrite Ql (U) Negative Negative [facility] No Panel InformationOrdered By: David Corral on 04-15-2025 16 U/L <32 [facility] Oncology Visit Reporton 03-30 Oncology Visit Report Normal [facility] Platelet countOrdered By: Nisa Corral on 04-15-2025 Platelets (Bld) [#/Vol] 146 10*3/uL Low 150-450 [facility] Potassium measurement (mass/ volume)Ordered By: David Corral on 04-15-2025 Potassium (Unsp spec) [Mass/Vol] 4.4 mmol/L 3.3-5.1 [facility] Protein Test strip Ql (U)Ord ered By: David Corral on 04-15-2025 Protein Ql (U) 100 mg/dl High Negative [facility] RBC Auto (Bld) [#/Vol]Ordere d By: David Corral on 04-15-2025 RBC (Bld) [#/Vol] 2.98 10*6/uL Low 4.2-5.4 [facility] Serum creatinine measurement (mass/volume)Ordered By: David Corral on 04-15-2025 Creatinine [Mass/Vol] 2.21 mg/dL High 0.70-1.20 [facility] Serum globulin measurementOr dered By: David Corral on 04-15-2025 Globulin (S) [Mass/Vol] 3.1 g/dL 2.2-4.2 [facility] Serum glucose measurement (m ass/volume)Ordered By: David Corral on 04-15-2025 Glucose [Mass/Vol] 125 mg/dL High 70-99 [facility] Serum or plasma alanine garcia otransferase (ALT) measurementOrdered By: David Corral on 04-15-2025 ALT [Catalytic activity/Vol] 11 U/L <35 [facility] Serum or plasma albumin addie urement (mass/volume)Ordered By: David Corral on 04-15-2025 Albumin [Mass/Vol] 3.9 g/dL 3.4-4.8 [facility] Serum or plasma albumin/glob ulin mass ratioOrdered By: David Corral on 04-15-2025 Albumin/Globulin [Mass ratio] 1.3 {ratio} 0.9-2.4 [facility] Serum or plasma alkaline jabier sphatase measurementOrdered By: David Corral on 04-15-2025 ALP [Catalytic activity/Vol] 95 U/L 35-104 [facility] Serum or plasma calcium addie urement (mass/volume)Ordered By: David Corral on 04-15-2025 Calcium [Mass/Vol] 9.4 mg/dL 7.6-11.0 [facility] Serum or plasma urea nitroge n measurement (mass/volume)Ordered By: David Corral on 04-15-2025 Urea nitrogen [Mass/Vol] 39 mg/dL High 4-19 [facility] Sodium levelOrdered By: Jacky Corral on 04-15-2025 Sodium [Moles/Vol] 141 mmol/L 133-145 [facility] Squamous epithelial cells de tection in urine sediment by light microscopyOrdered By: David Corral on 04-15-2025 Epithelial cells.squamous LM Ql (Urine sed) 5-10 SEEN /hpf - [facility] Total proteinOrdered By: Leonard Corral on 04-15-2025 Protein [Mass/Vol] 7.0 g/dL 5.9-8.4 [facility] Urinalysis, Completeon 04-15 EPI,SQUAMOUS 5-10 SEEN Normal -10 [facility] Comment on above: Order Comment: FRANDY CTOR TO SPECIFY Performed By: #### L 400.0001 ####[facility] [address] [place], [address] WBC 0-5 SEEN Normal 0-5 [facility] Comment on above: Order Comment: FRANDY CTOR TO SPECIFY Performed By: #### L 400.0001 ####[facility] [address] [place], [address] BACTERIA 0 SEEN Normal None Seen [facility] Comment on above: Order Comment: FRANDY CTOR TO SPECIFY Performed By: #### L 400.0001 ####[facility] [address] [place], [address] Mucus Ql (Urine sed) 0 SEEN Normal [facility] Comment on above: Order Comment: FRANDY CTOR TO SPECIFY Performed By: #### L 400.0001 ####[facility] [address] [place], [address] RBC 0 SEEN Normal 0-5 [facility] Comment on above: Order Comment: FRANDY CTOR TO SPECIFY Performed By: #### L 400.0001 ####[facility] [address] [place], [address] Urine clarityOrdered By: Leonard Corral on 04-15-2025 Clarity (U) Clear Clear [facility] Urine color determinationOrd ered By: David Corral on 04-15-2025 Color (U) Yellow Yellow [facility] Urine glucose detectionOrder ed By: David Corral on 04-15-2025 Glucose Ql (U) Normal mg/dl Normal [facility] Urine leukocyte esterase det ection by dipstickOrdered By: David Corral on 04-15-2025 Leukocyte esterase Test strip Ql (U) 100 /ul High Negative [facility] Urine pHOrdered By: David gillespie on 04-15-2025 pH (U) 6.0 [pH] 5.0 - 8.0 [facility] Urine sediment bacteria coun t by microscopy (number/high power field)Ordered By: David Corral on 04-15-2025 Bacteria LM.HPF (Urine sed) [#/Area] 0 /[HPF] None Seen [facility] Urine specific gravity measu rementOrdered By: David Corral on 04-15-2025 Specific gravity (U) [Rel density] 1.010 1.002-1.03 0 [facility] Urine urobilinogen measureme ntOrdered By: David Corral on 04-15-2025 Urobilinogen Ql (U) Normal mg/dl Normal [facility] White blood cell (WBC) count Ordered By: David Corral on 04-15-2025 WBC (Bld) [#/Vol] 5.5 10*3/uL 4.4-11.0 [facility] White blood cell countOrdere d By: David Corral on 04-15-2025 White blood cell count 0-5 SEEN /hpf 0-5 [facility] Absolute lymphocyte countOrd ered By: David Corral on 04-08-2025 Lymphocytes Auto (Unsp spec) [#/Vol] 1.04 10*3/uL 0.83-4.51 [facility] Anion gap in Serum or Plasma Ordered By: David Corral on 04-08-2025 Anion gap [Moles/Vol] 13 mmol/L 5-15 [facility] Automated lymphocyte count a s percentage of total leukocytesOrdered By: David Corral on 04-08-2025 Lymphocytes/100 WBC Auto (Unsp spec) 27.8 % 19-41 [facility] BUN/creatinine ratioOrdered By: David Corral on 04-08-2025 Urea nitrogen/Creatinine [Mass ratio] 20.7 mg/mg High 10-20 [facility] Basophil percentageOrdered B y: David Corral on 04-08-2025 Basophils/100 WBC (Bld) 0.8 % 0-1 [facility] Bilirubin, totalOrdered By: Davdi Corral on 04-08-2025 Bilirubin [Mass/Vol] 0.36 mg/dL 0.00-1.30 [facility] CBC W/Diff, Automatedon 03-30 ATYPICAL LYMPH 1+ Normal [facility] Comment on above: Performed By: #### L 500.4050, L501.5200, L100.0100 ####[facility] [address] [place], [address] Carbon dioxide, total [Moles /volume] in Central venous bloodOrdered By: David Corral on 04-08-2025 CO2 [Moles/Vol] 22.7 mmol/L 21.0-32.0 [facility] Chloride assayOrdered By: Nisa Corral on 04-08-2025 Chloride [Moles/Vol] 106 mmol/L 98-108 [facility] Comprehensive Metabolic Prof ilon 04-08-2025 Albumin [Mass/Vol] 3.9 g/dL Normal 3.4-4.8 [facility] Comment on above: Performed By: #### L 500.4050, L501.5200, L100.0100 ####[facility] [address] [place], [address] Albumin/Globulin [Mass ratio] 1.2 {ratio} Normal 0.9-2.4 [facility] Comment on above: Performed By: #### L 500.4050, L501.5200, L100.0100 ####[facility] [address] [place], [address] ALK PHOS 136 U/L High 35-104 [facility] Comment on above: Performed By: #### L 500.4050, L501.5200, L100.0100 ####[facility] [address] [place], [address] ALT [Catalytic activity/Vol] 29 U/L Normal <=34 [facility] Comment on above: Performed By: #### L 500.4050, L501.5200, L100.0100 ####[facility] [address] [place], [address] AST [Catalytic activity/Vol] 26 U/L Normal <=31 [facility] Comment on above: Performed By: #### L 500.4050, L501.5200, L100.0100 ####[facility] [address] [place], [address] Bilirubin [Mass/Vol] 0.36 mg/dL Normal 0.00-1.30 [facility] Comment on above: Performed By: #### L 500.4050, L501.5200, L100.0100 ####[facility] [address] [place], [address] BUN/CRE 20.7 RATIO High 10-20 [facility] Comment on above: Performed By: #### L 500.4050, L501.5200, L100.0100 ####[facility] [address] [place], [address] Calcium [Mass/Vol] 9.2 mg/dL Normal 7.6-11.0 [facility] Comment on above: Performed By: #### L 500.4050, L501.5200, L100.0100 ####[facility] [address] [place], [address] Chloride [Moles/Vol] 106 mmol/L Normal 98-108 [facility] Comment on above: Performed By: #### L 500.4050, L501.5200, L100.0100 ####[facility] [address] [place], [address] CO2 [Moles/Vol] 22.7 mmol/L Normal 21.0-32.0 [facility] Comment on above: Performed By: #### L 500.4050, L501.5200, L100.0100 ####[facility] [address] [place], [address] Creatinine [Mass/Vol] 1.87 mg/dL High 0.70-1.20 [facility] Comment on above: Performed By: #### L 500.4050, L501.5200, L100.0100 ####[facility] [address] [place], [address] ECRCL 36.12 ml/min Low 50-250 [facility] Comment on above: Performed By: #### L 500.4050, L501.5200, L100.0100 ####[facility] [address] [place], [address] GAP 13 Normal 5-15 [facility] Comment on above: Performed By: #### L 500.4050, L501.5200, L100.0100 ####[facility] [address] [place], [address] GFR/1.73 sq M.predicted among non-blacks MDRD (S/P/Bld) [Vol rate/Area] 29 mL/min/{1.73_m2} Low >60 [facility] Comment on above: Result Comment: mL/m in/1.73m2 CKD-EPI Creatinine Equation (2020) Performed By: #### L 500.4050, L501.5200, L100.0100 ####[facility] [address] [place], [address] Globulin (S) [Mass/Vol] 3.2 g/dL Normal 2.2-4.2 [facility] Comment on above: Performed By: #### L 500.4050, L501.5200, L100.0100 ####[facility] [address] [place], [address] Glucose [Mass/Vol] 101 mg/dL High 70-99 [facility] Comment on above: Performed By: #### L 500.4050, L501.5200, L100.0100 ####[facility] [address] [place], [address] Potassium [Moles/Vol] 3.6 mmol/L Normal 3.3-5.1 [facility] Comment on above: Performed By: #### L 500.4050, L501.5200, L100.0100 ####[facility] [address] [place], [address] Sodium [Moles/Vol] 141 mmol/L Normal 133-145 [facility] Comment on above: Performed By: #### L 500.4050, L501.5200, L100.0100 ####[facility] [address] [place], [address] T PROT 7.1 g/dL Normal 5.9-8.4 [facility] Comment on above: Performed By: #### L 500.4050, L501.5200, L100.0100 ####[facility] [address] [place], [address] Urea nitrogen [Mass/Vol] 39 mg/dL High 4-19 [facility] Comment on above: Performed By: #### L 500.4050, L501.5200, L100.0100 ####[facility] [address] [place], [address] Eosinophil percentageOrdered By: David Corral on 04-08-2025 Eosinophils/100 WBC (Bld) 2.9 % 0-5 [facility] Erythrocyte distribution wid th ratioOrdered By: David Corral on 04-08-2025 Erythrocyte distribution width (RBC) [Ratio] 14.5 % 11.6-14.6 [facility] Erythrocyte distribution wid th standard deviationOrdered By: David Corral on 04-08-2025 Erythrocyte distribution width (RBC) [Ratio] 50.2 fl High 35.1-43.9 [facility] Glomerular filtration rate ( GFR) estimation/1.73 sq m using serum, plasma, or whole bOrdered By: David Corral on 04-08-2025 GFR/1.73 sq M.predicted among non-blacks MDRD (S/P/Bld) [Vol rate/Area] 29 mL/min/{1.73_m2} Low >60 [facility] Hematocrit Auto (Bld) [Volum e fraction]Ordered By: David Corral on 04-08-2025 Hematocrit (Bld) [Volume fraction] 27.9 % Low 37-47 [facility] Hemoglobin measurementOrdere d By: David Corral on 04-08-2025 Hemoglobin (Bld) [Mass/Vol] 9.1 g/dL Low 12.0-15.0 [facility] Immature granulocytes/100 WB C Auto (Bld)Ordered By: David Corral on 04-08-2025 Immature granulocytes/100 WBC (Bld) 0.800 % 0.0-0.9 [facility] MCV (mean corpuscular volume ) determinationOrdered By: David Corral on 04-08-2025 MCV (RBC) [Entitic vol] 97.6 fL 81-99 [facility] Magnesiumon 04-08-2025 Magnesium [Mass/Vol] 1.3 mg/dL Low 1.5-2.2 [facility] Comment on above: Performed By: #### L 500.4050, L501.5200, L100.0100 ####[facility] [address] [facility] [place], [address] Magnesium measurement (mass/ volume)Ordered By: David Corral on 04-08-2025 Magnesium (Unsp spec) [Mass/Vol] 1.3 mg/dL Low 1.5-2.2 [facility] Mean corpuscular hemoglobin (MCH) determinationOrdered By: David Corral on 04-08-2025 MCH (RBC) [Entitic mass] 31.8 pg 27.0-32.0 [facility] Monocyte percentageOrdered B y: David Corral on 04-08-2025 Monocytes/100 WBC (Bld) 3.5 % 0-10 [facility] Neutrophil percentageOrdered By: David Corral on 04-08-2025 Neutrophils/100 WBC (Bld) 64.2 % 47-70 [facility] No Panel InformationOrdered By: David Corral on 04-08-2025 26 U/L <32 [facility] Oncology Visit Reporton 03-30 Oncology Visit Report Normal [facility] Platelet countOrdered By: Nisa Corral on 04-08-2025 Platelets (Bld) [#/Vol] 128 10*3/uL Low 150-450 [facility] Potassium measurement (mass/ volume)Ordered By: David Corral on 04-08-2025 Potassium (Unsp spec) [Mass/Vol] 3.6 mmol/L 3.3-5.1 [facility] RBC Auto (Bld) [#/Vol]Ordere d By: David Corral on 04-08-2025 RBC (Bld) [#/Vol] 2.86 10*6/uL Low 4.2-5.4 [facility] Serum creatinine measurement (mass/volume)Ordered By: David Corral on 04-08-2025 Creatinine [Mass/Vol] 1.87 mg/dL High 0.70-1.20 [facility] Serum globulin measurementOr dered By: David Corral on 04-08-2025 Globulin (S) [Mass/Vol] 3.2 g/dL 2.2-4.2 [facility] Serum glucose measurement (m ass/volume)Ordered By: David Corral on 04-08-2025 Glucose [Mass/Vol] 101 mg/dL High 70-99 [facility] Serum or plasma alanine garcia otransferase (ALT) measurementOrdered By: David Corral on 04-08-2025 ALT [Catalytic activity/Vol] 29 U/L <35 [facility] Serum or plasma albumin addie urement (mass/volume)Ordered By: David Corral on 04-08-2025 Albumin [Mass/Vol] 3.9 g/dL 3.4-4.8 [facility] Serum or plasma albumin/glob ulin mass ratioOrdered By: David Corral on 04-08-2025 Albumin/Globulin [Mass ratio] 1.2 {ratio} 0.9-2.4 [facility] Serum or plasma alkaline jabier sphatase measurementOrdered By: David Corral on 04-08-2025 ALP [Catalytic activity/Vol] 136 U/L High 35-104 [facility] Serum or plasma calcium addie urement (mass/volume)Ordered By: David Corral on 04-08-2025 Calcium [Mass/Vol] 9.2 mg/dL 7.6-11.0 [facility] Serum or plasma urea nitroge n measurement (mass/volume)Ordered By: David Corral on 04-08-2025 Urea nitrogen [Mass/Vol] 39 mg/dL High 4-19 [facility] Sodium levelOrdered By: Jacky Corral on 04-08-2025 Sodium [Moles/Vol] 141 mmol/L 133-145 [facility] Total proteinOrdered By: Leonardgabriella Corral on 04-08-2025 Protein [Mass/Vol] 7.1 g/dL 5.9-8.4 [facility] Urinalysis, Completeon 04-08 BACTERIA 1+ /hpf Normal None Seen [facility] Comment on above: Order Comment: CLEAN CATCH Performed By: #### L 400.0001 ####[facility] [address] [place], [address] EPI,SQUAMOUS 0-5 SEEN Normal 5-10 [facility] Comment on above: Order Comment: CLEAN CATCH Performed By: #### L 400.0001 ####[facility] [address] [place], [address] RBC 0-5 SEEN Normal 0-5 [facility] Comment on above: Order Comment: CLEAN CATCH Performed By: #### L 400.0001 ####[facility] [address] [place], [address] WBC 0-5 SEEN Normal 0-5 [facility] Comment on above: Order Comment: CLEAN CATCH Performed By: #### L 400.0001 ####[facility] [address] [place], [address] Mucus Ql (Urine sed) 0 SEEN Normal [facility] Comment on above: Order Comment: CLEAN CATCH Performed By: #### L 400.0001 ####[facility] [address] [place], [address] White blood cell (WBC) count Ordered By: David Corral on 04-08-2025 WBC (Bld) [#/Vol] 3.7 10*3/uL Low 4.4-11.0 [facility] Cancer Antigen 125on 025 CA 125 14.3 U/mL Normal 0.0-38.1 [facility] Comment on above: Result Comment: [employer] Electrochemiluminescence Immunoassay(ECLIA)Values obtained with different assay methods or kits cannotbe used interchangeably. Results cannot be interpreted asabsolute evidence of the presence or absence of malignantdisease.Performed at: [address] [id number] Director: Joe Olivier PhD, Phone: [phone] Performed By: #### L 504.2610, L3100.5000 ####[facility] [address] [place], [address] CBC W/Diff, Automatedon ATYPICAL LYMPH 1+ Normal [facility] Comment on above: Performed By: #### L 100.0100, L501.5200, L500.4050 ####[facility] [address] [place], [address] Comprehensive Metabolic Prof ilon 04-01-2025 Albumin [Mass/Vol] 3.8 g/dL Normal 3.4-4.8 [facility] Comment on above: Performed By: #### L 100.0100, L501.5200, L500.4050 ####[facility] [address] [place], [address] Albumin/Globulin [Mass ratio] 1.1 {ratio} Normal 0.9-2.4 [facility] Comment on above: Performed By: #### L 100.0100, L501.5200, L500.4050 ####[facility] [address] [place], [address] ALK PHOS 81 U/L Normal 35-104 [facility] Comment on above: Performed By: #### L 100.0100, L501.5200, L500.4050 ####[facility] [address] [place], [address] ALT [Catalytic activity/Vol] 17 U/L Normal <=34 [facility] Comment on above: Performed By: #### L 100.0100, L501.5200, L500.4050 ####[facility] [address] [place], [address] AST [Catalytic activity/Vol] 20 U/L Normal <=31 [facility] Comment on above: Performed By: #### L 100.0100, L501.5200, L500.4050 ####[facility] [address] [place], [address] Bilirubin [Mass/Vol] 0.41 mg/dL Normal 0.00-1.30 [facility] Comment on above: Performed By: #### L 100.0100, L501.5200, L500.4050 ####[facility] [address] [place], [address] BUN/CRE 20.0 RATIO Normal 10-20 [facility] Comment on above: Performed By: #### L 100.0100, L501.5200, L500.4050 ####[facility] [address] [place], [address] Calcium [Mass/Vol] 9.4 mg/dL Normal 7.6-11.0 [facility] Comment on above: Performed By: #### L 100.0100, L501.5200, L500.4050 ####[facility] [address] [place], [address] Chloride [Moles/Vol] 105 mmol/L Normal 98-108 [facility] Comment on above: Performed By: #### L 100.0100, L501.5200, L500.4050 ####[facility] [address] [place], [address] CO2 [Moles/Vol] 23.1 mmol/L Normal 21.0-32.0 [facility] Comment on above: Performed By: #### L 100.0100, L501.5200, L500.4050 ####[facility] [address] [place], [address] Creatinine [Mass/Vol] 2.03 mg/dL High 0.70-1.20 [facility] Comment on above: Performed By: #### L 100.0100, L501.5200, L500.4050 ####[facility] [address] [place], [address] ECRCL 33.27 ml/min Low 50-250 [facility] Comment on above: Performed By: #### L 100.0100, L501.5200, L500.4050 ####[facility] [address] [place], [address] GAP 13 Normal 5-15 [facility] Comment on above: Performed By: #### L 100.0100, L501.5200, L500.4050 ####[facility] [address] [place], [address] GFR/1.73 sq M.predicted among non-blacks MDRD (S/P/Bld) [Vol rate/Area] 26 mL/min/{1.73_m2} Low >60 [facility] Comment on above: Result Comment: mL/m in/1.73m2 CKD-EPI Creatinine Equation (2020) Performed By: #### L 100.0100, L501.5200, L500.4050 ####[facility] [address] [place], [address] Globulin (S) [Mass/Vol] 3.3 g/dL Normal 2.2-4.2 [facility] Comment on above: Performed By: #### L 100.0100, L501.5200, L500.4050 ####[facility] [address] [place], [address] Glucose [Mass/Vol] 105 mg/dL High 70-99 [facility] Comment on above: Performed By: #### L 100.0100, L501.5200, L500.4050 ####[facility] [address] [place], [address] Potassium [Moles/Vol] 3.8 mmol/L Normal 3.3-5.1 [facility] Comment on above: Performed By: #### L 100.0100, L501.5200, L500.4050 ####[facility] [address] [place], [address] Sodium [Moles/Vol] 141 mmol/L Normal 133-145 [facility] Comment on above: Performed By: #### L 100.0100, L501.5200, L500.4050 ####[facility] [address] [place], [address] T PROT 7.2 g/dL Normal 5.9-8.4 [facility] Comment on above: Performed By: #### L 100.0100, L501.5200, L500.4050 ####[facility] [address] [place], [address] Urea nitrogen [Mass/Vol] 41 mg/dL High 4-19 [facility] Comment on above: Performed By: #### L 100.0100, L501.5200, L500.4050 ####[facility] [address] [place], [address] LDHon 04-01-2025 LDH 178 U/L Normal 84-246 [facility] Comment on above: Order Comment: 1 Performed By: #### L 504.2610, L3100.5000 ####[facility] [address] [place], [address] Magnesiumon 04-01-2025 Magnesium [Mass/Vol] 1.3 mg/dL Low 1.5-2.2 [facility] Comment on above: Performed By: #### L 100.0100, L501.5200, L500.4050 ####[facility] [address] [place], [address] Absolute lymphocyte countOrd ered By: David Ellis on 03-25-2025 Lymphocytes Auto (Unsp spec) [#/Vol] 1.19 10*3/uL 0.83-4.51 [facility] Anion gap in Serum or Plasma Ordered By: David Corral on 03-25-2025 Anion gap [Moles/Vol] 14 mmol/L 5-15 [facility] Automated lymphocyte count a s percentage of total leukocytesOrdered By: David Corral on 03-25-2025 Lymphocytes/100 WBC Auto (Unsp spec) 28.7 % - [facility] BUN/creatinine ratioOrdered By: David Corral on 03-25-2025 Urea nitrogen/Creatinine [Mass ratio] 21.8 mg/mg High 10-20 [facility] Basophil percentageOrdered B y: David Corral on 03-25-2025 Basophils/100 WBC (Bld) 0.5 % 0-1 [facility] Bilirubin, totalOrdered By: David Corral on 03-25-2025 Bilirubin [Mass/Vol] 0.64 mg/dL 0.00-1.30 [facility] CBC W/Diff, Automatedon 02-28 Absolute Lymph 1.19 X10 3/uL Normal 0.83-4.51 [facility] Comment on above: Performed By: #### L 100.0100, L501.5200, L500.4050 ####[facility] [address] [place], [address] Absolute Neut 2.5 X10 3/uL Normal 2.0-7.7 [facility] Comment on above: Performed By: #### L 100.0100, L501.5200, L500.4050 ####[facility] [address] [place], [address] Basophils/100 WBC (Bld) 0.5 % Normal 0-1 [facility] Comment on above: Performed By: #### L 100.0100, L501.5200, L500.4050 ####[facility] [address] [place], [address] Eosinophils/100 WBC (Bld) 6.0 % High 0-5 [facility] Comment on above: Performed By: #### L 100.0100, L501.5200, L500.4050 ####[facility] [address] [place], [address] Erythrocyte distribution width (RBC) [Ratio] 13.5 % Normal 11.6-14.6 [facility] Comment on above: Performed By: #### L 100.0100, L501.5200, L500.4050 ####[facility] [address] [place], [address] Hematocrit (Bld) [Volume fraction] 32.2 % Low 37-47 [facility] Comment on above: Performed By: #### L 100.0100, L501.5200, L500.4050 ####[facility] [address] [place], [address] Hemoglobin (Bld) [Mass/Vol] 10.8 g/dL Low 12.0-15.0 [facility] Comment on above: Performed By: #### L 100.0100, L501.5200, L500.4050 ####[facility] [address] [place], [address] IG% 0.700 Normal 0.0-0.9 [facility] Comment on above: Result Comment: IG% - Immature Granulocytes (promyelocytes, myelocytes andmetamyelocytes) > 1% indicates that a LEFT SHIFT is Present. Performed By: #### L 100.0100, L501.5200, L500.4050 ####[facility] [address] [place], [address] Lymphocytes/100 WBC (Bld) 28.7 % Normal 19-41 [facility] Comment on above: Performed By: #### L 100.0100, L501.5200, L500.4050 ####[facility] [address] [place], [address] MCH (RBC) [Entitic mass] 31.9 pg Normal 27.0-32.0 [facility] Comment on above: Performed By: #### L 100.0100, L501.5200, L500.4050 ####[facility] [address] [place], [address] MCHC (RBC) [Mass/Vol] 33.5 g/dL Normal 32-36 [facility] Comment on above: Performed By: #### L 100.0100, L501.5200, L500.4050 ####[facility] [address] [place], [address] MCV (RBC) [Entitic vol] 95.0 fL Normal 81-99 [facility] Comment on above: Performed By: #### L 100.0100, L501.5200, L500.4050 ####[facility] [address] [place], [address] Monocytes/100 WBC (Bld) 3.4 % Normal 0-10 [facility] Comment on above: Performed By: #### L 100.0100, L501.5200, L500.4050 ####[facility] [address] [place], [address] Neutrophils/100 WBC (Bld) 60.7 % Normal 47-70 [facility] Comment on above: Performed By: #### L 100.0100, L501.5200, L500.4050 ####[facility] [address] [place], [address] Nucleated RBC (Bld) [#/Vol] 0 10*3/uL Normal 0-5 [facility] Comment on above: Performed By: #### L 100.0100, L501.5200, L500.4050 ####[facility] [address] [place], [address] Platelet mean volume (Bld) [Entitic vol] 12.1 fL High 6.2-12.0 [facility] Comment on above: Performed By: #### L 100.0100, L501.5200, L500.4050 ####[facility] [address] [place], [address] Platelets (Bld) [#/Vol] 155 10*3/uL Normal 150-450 [facility] Comment on above: Performed By: #### L 100.0100, L501.5200, L500.4050 ####[facility] [address] [place], [address] RBC (Bld) [#/Vol] 3.39 10*6/uL Low 4.2-5.4 [facility] Comment on above: Performed By: #### L 100.0100, L501.5200, L500.4050 ####[facility] [address] [place], [address] RDW SD 47.2 fl High 35.1-43.9 [facility] Comment on above: Performed By: #### L 100.0100, L501.5200, L500.4050 ####[facility] [address] [place], [address] WBC (Bld) [#/Vol] 4.1 10*3/uL Low 4.4-11.0 [facility] Comment on above: Performed By: #### L 100.0100, L501.5200, L500.4050 ####[facility] [address] [place], [address] Carbon dioxide, total [Moles /volume] in Central venous bloodOrdered By: David Corral on 03-25-2025 CO2 [Moles/Vol] 21.4 mmol/L 21.0-32.0 [facility] Chloride assayOrdered By: Nisa Corral on 03-25-2025 Chloride [Moles/Vol] 105 mmol/L 98-108 [facility] Comprehensive Metabolic Prof ilon 03-25-2025 Albumin [Mass/Vol] 3.9 g/dL Normal 3.4-4.8 [facility] Comment on above: Performed By: #### L 100.0100, L501.5200, L500.4050 ####[facility] [address] [place], [address] Albumin/Globulin [Mass ratio] 1.0 {ratio} Normal 0.9-2.4 [facility] Comment on above: Performed By: #### L 100.0100, L501.5200, L500.4050 ####[facility] [address] [place], [address] ALK PHOS 82 U/L Normal 35-104 [facility] Comment on above: Performed By: #### L 100.0100, L501.5200, L500.4050 ####[facility] [address] [place], [address] ALT [Catalytic activity/Vol] 11 U/L Normal <=34 [facility] Comment on above: Performed By: #### L 100.0100, L501.5200, L500.4050 ####[facility] [address] [place], [address] AST [Catalytic activity/Vol] 19 U/L Normal <=31 [facility] Comment on above: Performed By: #### L 100.0100, L501.5200, L500.4050 ####[facility] [address] [place], [address] Bilirubin [Mass/Vol] 0.64 mg/dL Normal 0.00-1.30 [facility] Comment on above: Performed By: #### L 100.0100, L501.5200, L500.4050 ####[facility] [address] [place], [address] BUN/CRE 21.8 RATIO High 10-20 [facility] Comment on above: Performed By: #### L 100.0100, L501.5200, L500.4050 ####[facility] [address] [place], [address] Calcium [Mass/Vol] 9.6 mg/dL Normal 7.6-11.0 [facility] Comment on above: Performed By: #### L 100.0100, L501.5200, L500.4050 ####[facility] [address] [place], [address] Chloride [Moles/Vol] 105 mmol/L Normal 98-108 [facility] Comment on above: Performed By: #### L 100.0100, L501.5200, L500.4050 ####[facility] [address] [place], [address] CO2 [Moles/Vol] 21.4 mmol/L Normal 21.0-32.0 [facility] Comment on above: Performed By: #### L 100.0100, L501.5200, L500.4050 ####[facility] [address] [place], [address] Creatinine [Mass/Vol] 1.97 mg/dL High 0.70-1.20 [facility] Comment on above: Performed By: #### L 100.0100, L501.5200, L500.4050 ####[facility] [address] [place], [address] ECRCL 35.95 ml/min Low 50-250 [facility] Comment on above: Performed By: #### L 100.0100, L501.5200, L500.4050 ####[facility] [address] [place], [address] GAP 14 Normal 5-15 [facility] Comment on above: Performed By: #### L 100.0100, L501.5200, L500.4050 ####[facility] [address] [place], [address] GFR/1.73 sq M.predicted among non-blacks MDRD (S/P/Bld) [Vol rate/Area] 27 mL/min/{1.73_m2} Low >60 [facility] Comment on above: Result Comment: mL/m in/1.73m2 CKD-EPI Creatinine Equation (2020) Performed By: #### L 100.0100, L501.5200, L500.4050 ####[facility] [address] [place], [address] Globulin (S) [Mass/Vol] 3.8 g/dL Normal 2.2-4.2 [facility] Comment on above: Performed By: #### L 100.0100, L501.5200, L500.4050 ####[facility] [address] [place], [address] Glucose [Mass/Vol] 115 mg/dL High 70-99 [facility] Comment on above: Performed By: #### L 100.0100, L501.5200, L500.4050 ####[facility] [address] [place], [address] Potassium [Moles/Vol] 3.8 mmol/L Normal 3.3-5.1 [facility] Comment on above: Performed By: #### L 100.0100, L501.5200, L500.4050 ####[facility] [address] [place], [address] Sodium [Moles/Vol] 140 mmol/L Normal 133-145 [facility] Comment on above: Performed By: #### L 100.0100, L501.5200, L500.4050 ####[facility] [address] [place], [address] T PROT 7.7 g/dL Normal 5.9-8.4 [facility] Comment on above: Performed By: #### L 100.0100, L501.5200, L500.4050 ####[facility] [address] [place], [address] Urea nitrogen [Mass/Vol] 43 mg/dL High 4-19 [facility] Comment on above: Performed By: #### L 100.0100, L501.5200, L500.4050 ####[facility] [address] [place], [address] Eosinophil percentageOrdered By: David Corral on 03-25-2025 Eosinophils/100 WBC (Bld) 6.0 % High 0-5 [facility] Erythrocyte distribution wid th ratioOrdered By: David Corral on 03-25-2025 Erythrocyte distribution width (RBC) [Ratio] 13.5 % 11.6-14.6 [facility] Erythrocyte distribution wid th standard deviationOrdered By: David Corral on 03-25-2025 Erythrocyte distribution width (RBC) [Ratio] 47.2 fl High 35.1-43.9 [facility] Glomerular filtration rate ( GFR) estimation/1.73 sq m using serum, plasma, or whole bOrdered By: David Corral on 03-25-2025 GFR/1.73 sq M.predicted among non-blacks MDRD (S/P/Bld) [Vol rate/Area] 27 mL/min/{1.73_m2} Low >60 [facility] Hematocrit Auto (Bld) [Volum e fraction]Ordered By: David Corral on 03-25-2025 Hematocrit (Bld) [Volume fraction] 32.2 % Low 37-47 [facility] Hemoglobin measurementOrdere d By: David Corral on 03-25-2025 Hemoglobin (Bld) [Mass/Vol] 10.8 g/dL Low 12.0-15.0 [facility] Immature granulocytes/100 WB C Auto (Bld)Ordered By: David Corral on 03-25-2025 Immature granulocytes/100 WBC (Bld) 0.700 % 0.0-0.9 [facility] MCV (mean corpuscular volume ) determinationOrdered By: David Corral on 03-25-2025 MCV (RBC) [Entitic vol] 95.0 fL 81-99 [facility] Magnesiumon 03-25-2025 Magnesium [Mass/Vol] 1.4 mg/dL Low 1.5-2.2 [facility] Comment on above: Performed By: #### L 100.0100, L501.5200, L500.4050 ####[facility] [address] [place], [address] Magnesium measurement (mass/ volume)Ordered By: David Corral on 03-25-2025 Magnesium (Unsp spec) [Mass/Vol] 1.4 mg/dL Low 1.5-2.2 [facility] Mean corpuscular hemoglobin (MCH) determinationOrdered By: David Corral on 03-25-2025 MCH (RBC) [Entitic mass] 31.9 pg 27.0-32.0 [facility] Monocyte percentageOrdered B y: David Corral on 03-25-2025 Monocytes/100 WBC (Bld) 3.4 % 0-10 [facility] Neutrophil percentageOrdered By: David Corral on 03-25-2025 Neutrophils/100 WBC (Bld) 60.7 % 47-70 [facility] No Panel InformationOrdered By: David Corral on 03-25-2025 19 U/L <32 [facility] Oncology Visit Reporton 02-28 Oncology Visit Report Normal [facility] Platelet countOrdered By: Nisa Corral on 03-25-2025 Platelets (Bld) [#/Vol] 155 10*3/uL 150-450 [facility] Potassium measurement (mass/ volume)Ordered By: David Corral on 03-25-2025 Potassium (Unsp spec) [Mass/Vol] 3.8 mmol/L 3.3-5.1 [facility] RBC Auto (Bld) [#/Vol]Ordere d By: David Corral on 03-25-2025 RBC (Bld) [#/Vol] 3.39 10*6/uL Low 4.2-5.4 [facility] Serum creatinine measurement (mass/volume)Ordered By: David Corral on 03-25-2025 Creatinine [Mass/Vol] 1.97 mg/dL High 0.70-1.20 [facility] Serum globulin measurementOr dered By: David Corral on 03-25-2025 Globulin (S) [Mass/Vol] 3.8 g/dL 2.2-4.2 [facility] Serum glucose measurement (m ass/volume)Ordered By: David Corral on 03-25-2025 Glucose [Mass/Vol] 115 mg/dL High 70-99 [facility] Serum or plasma alanine garcia otransferase (ALT) measurementOrdered By: David Corral on 03-25-2025 ALT [Catalytic activity/Vol] 11 U/L <35 [facility] Serum or plasma albumin addie urement (mass/volume)Ordered By: David Corral on 03-25-2025 Albumin [Mass/Vol] 3.9 g/dL 3.4-4.8 [facility] Serum or plasma albumin/glob ulin mass ratioOrdered By: David Corral on 03-25-2025 Albumin/Globulin [Mass ratio] 1.0 {ratio} 0.9-2.4 [facility] Serum or plasma alkaline jabier sphatase measurementOrdered By: David Corral on 03-25-2025 ALP [Catalytic activity/Vol] 82 U/L 35-104 [facility] Serum or plasma calcium addie urement (mass/volume)Ordered By: David Corral on 03-25-2025 Calcium [Mass/Vol] 9.6 mg/dL 7.6-11.0 [facility] [facility] Serum or plasma urea nitroge n measurement (mass/volume)Ordered By: David Corral on 03-25-2025 Urea nitrogen [Mass/Vol] 43 mg/dL High 4-19 [facility] Sodium levelOrdered By: Jacky henderson [place] on 03-25-2025 Sodium [Moles/Vol] 140 mmol/L 133-145 [facility] Total proteinOrdered By: Leonard díaz Ellis on 03-25-2025 Protein [Mass/Vol] 7.7 g/dL 5.9-8.4 [facility] White blood cell (WBC) count Ordered By: David Ellis on 03-25-2025 WBC (Bld) [#/Vol] 4.1 10*3/uL Low 4.4-11.0 [facility] Bilirubin Test strip Ql (U)O rdered By: David Ellis on 03-18-2025 Bilirubin Ql (U) Negative Negative [facility] CBC W/Diff, Automatedon 02-28 Absolute Neut Normal 2.0-7.7 [facility] Comment on above: Result Comment: DUPL ICATE ORDER Performed By: #### L 400.0001, L100.0100, L500.4050 ####[facility] [address] [place], [address] HCT Normal 37-47 [facility] Comment on above: Result Comment: DUPL ICATE ORDER Performed By: #### L 400.0001, L100.0100, L500.4050 ####[facility] [address] [place], [address] HGB Normal 12.0-15.0 [facility] Comment on above: Result Comment: DUPL ICATE ORDER Performed By: #### L 400.0001, L100.0100, L500.4050 ####[facility] [address] [place], [address] MCH Normal 27.0-32.0 [facility] Comment on above: Result Comment: DUPL ICATE ORDER Performed By: #### L 400.0001, L100.0100, L500.4050 ####[facility] [address] [place], [address] MCHC Normal 32-36 [facility] Comment on above: Result Comment: DUPL ICATE ORDER Performed By: #### L 400.0001, L100.0100, L500.4050 ####[facility] [address] [place], [address] MCV Normal 81-99 [facility] Comment on above: Result Comment: DUPL ICATE ORDER Performed By: #### L 400.0001, L100.0100, L500.4050 ####[facility] [address] [place], [address] NEUT% Normal 47-70 [facility] Comment on above: Result Comment: DUPL ICATE ORDER Performed By: #### L 400.0001, L100.0100, L500.4050 ####[facility] [address] [place], [address] PLT Normal 150-450 [facility] Comment on above: Result Comment: DUPL ICATE ORDER Performed By: #### L 400.0001, L100.0100, L500.4050 ####[facility] [address] [place], [address] RDW CV Normal 11.6-14.6 [facility] Comment on above: Result Comment: DUPL ICATE ORDER Performed By: #### L 400.0001, L100.0100, L500.4050 ####[facility] [address] [place], [address] RDW SD Normal 35.1-43.9 [facility] Comment on above: Result Comment: DUPL ICATE ORDER Performed By: #### L 400.0001, L100.0100, L500.4050 ####[facility] [address] [place], [address] Comprehensive Metabolic Prof ilon 03-18-2025 ALB Normal 3.4-4.8 [facility] Comment on above: Result Comment: DUPL ICATE ORDER Performed By: #### L 400.0001, L100.0100, L500.4050 ####[facility] [address] [place], [address] ALK PHOS Normal 35-104 [facility] Comment on above: Result Comment: DUPL ICATE ORDER Performed By: #### L 400.0001, L100.0100, L500.4050 ####[facility] [address] [place], [address] ALT Normal <=34 [facility] Comment on above: Result Comment: DUPL ICATE ORDER Performed By: #### L 400.0001, L100.0100, L500.4050 ####[facility] [address] [place], [address] AST Normal <=31 [facility] Comment on above: Result Comment: DUPL ICATE ORDER Performed By: #### L 400.0001, L100.0100, L500.4050 ####[facility] [address] [place], [address] BUN Normal 4-19 [facility] Comment on above: Result Comment: DUPL ICATE ORDER Performed By: #### L 400.0001, L100.0100, L500.4050 ####[facility] [address] [place], [address] BUN/CRE Normal 10-20 [facility] Comment on above: Result Comment: DUPL ICATE ORDER Performed By: #### L 400.0001, L100.0100, L500.4050 ####[facility] [address] [place], [address] Calcium Normal 7.6-11.0 [facility] Comment on above: Result Comment: DUPL ICATE ORDER Performed By: #### L 400.0001, L100.0100, L500.4050 ####[facility] [address] [place], [address] CL Normal 98-108 [facility] Comment on above: Result Comment: DUPL ICATE ORDER Performed By: #### L 400.0001, L100.0100, L500.4050 ####[facility] [address] [place], [address] CO2 Normal 21.0-32.0 [facility] Comment on above: Result Comment: DUPL ICATE ORDER Performed By: #### L 400.0001, L100.0100, L500.4050 ####[facility] [address] [place], [address] CREAT,SERUM Normal 0.70-1.20 [facility] Comment on above: Result Comment: DUPL ICATE ORDER Performed By: #### L 400.0001, L100.0100, L500.4050 ####[facility] [address] [place], [address] eGFR Normal >60 [facility] Comment on above: Result Comment: DUPL ICATE ORDER Performed By: #### L 400.0001, L100.0100, L500.4050 ####[facility] [address] [place], [address] GAP Normal 5-15 [facility] Comment on above: Result Comment: DUPL ICATE ORDER Performed By: #### L 400.0001, L100.0100, L500.4050 ####[facility] [address] [place], [address] GLU Normal 70-99 [facility] Comment on above: Result Comment: DUPL ICATE ORDER Performed By: #### L 400.0001, L100.0100, L500.4050 ####[facility] [address] [place], [address] Potassium Normal 3.3-5.1 [facility] Comment on above: Result Comment: DUPL ICATE ORDER Performed By: #### L 400.0001, L100.0100, L500.4050 ####[facility] [address] [place], [address] T BILI Normal 0.00-1.30 [facility] Comment on above: Result Comment: DUPL ICATE ORDER Performed By: #### L 400.0001, L100.0100, L500.4050 ####[facility] [address] [place], [address] T PROT Normal 5.9-8.4 [facility] Comment on above: Result Comment: DUPL ICATE ORDER Performed By: #### L 400.0001, L100.0100, L500.4050 ####[facility] [address] [place], [address] Comprehensive Metabolic Profil Normal 133-145 [facility] Comment on above: Result Comment: DUPL ICATE ORDER Performed By: #### L 400.0001, L100.0100, L500.4050 ####[facility] [address] [place], [address] Ketones Test strip Ql (U)Ord ered By: David Corral on 03-18-2025 Ketones Ql (U) Negative Negative [facility] Mucus LM Ql (Urine sed)Order ed By: David Corral on 03-18-2025 Mucus Ql (Urine sed) 0 SEEN /hpf [facility] Nitrite Test strip Ql (U)Ord ered By: David Corral on 03-18-2025 Nitrite Ql (U) Negative Negative [facility] Oncology Visit Reporton 02-28 Oncology Visit Report Normal [facility] Protein Test strip Ql (U)Ord ered By: David Corral on 03-18-2025 Protein Ql (U) 100 mg/dl High Negative [facility] Squamous epithelial cells de tection in urine sediment by light microscopyOrdered By: David Corral on 03-18-2025 Epithelial cells.squamous LM Ql (Urine sed) 0-5 SEEN /hpf 5-10 [facility] Urinalysis, Completeon 03-18 EPI,SQUAMOUS 0-5 SEEN Normal 5-10 [facility] Comment on above: Order Comment: FRANDY CTOR TO SPECIFY Performed By: #### L 400.0001 ####[facility] [address] [place], [address] BACTERIA 0 SEEN Normal None Seen [facility] Comment on above: Order Comment: FRANDY CTOR TO SPECIFY Performed By: #### L 400.0001 ####[facility] [address] [place], [address] Mucus Ql (Urine sed) 0 SEEN Normal [facility] Comment on above: Order Comment: FRANDY CTOR TO SPECIFY Performed By: #### L 400.0001 ####[facility] [address] [place], [address] RBC 0 SEEN Normal 0-5 [facility] Comment on above: Order Comment: FRANDY CTOR TO SPECIFY Performed By: #### L 400.0001 ####[facility] [address] [place], [address] WBC 0 SEEN Normal 0-5 [facility] Comment on above: Order Comment: FRANDY CTOR TO SPECIFY Performed By: #### L 400.0001 ####[facility] [address] [place], [address] BACTERIA Normal None Seen [facility] Comment on above: Order Comment: FRANDY CTOR TO SPECIFY Result Comment: DUPL ICATE ORDER Performed By: #### L 400.0001, L100.0100, L500.4050 ####[facility] [address] [place], [address] BILIRUBIN URINE Normal Negative [facility] Comment on above: Order Comment: FRANDY CTOR TO SPECIFY Result Comment: DUPL ICATE ORDER Performed By: #### L 400.0001, L100.0100, L500.4050 ####[facility] [address] [place], [address] Clarity (U) Normal Clear [facility] Comment on above: Order Comment: COLLE CTOR TO SPECIFY Result Comment: DUPL ICATE ORDER Performed By: #### L 400.0001, L100.0100, L500.4050 ####[facility] [address] [place], [address] Color (U) Normal Yellow [facility] Comment on above: Order Comment: COLLE CTOR TO SPECIFY Result Comment: DUPL ICATE ORDER Performed By: #### L 400.0001, L100.0100, L500.4050 ####[facility] [address] [place], [address] EPI,SQUAMOUS Normal 5-10 [facility] Comment on above: Order Comment: COLLE CTOR TO SPECIFY Result Comment: DUPL ICATE ORDER Performed By: #### L 400.0001, L100.0100, L500.4050 ####[facility] [address] [place], [address] GLUCOSE, UR Normal Normal [facility] Comment on above: Order Comment: COLLE CTOR TO SPECIFY Result Comment: DUPL ICATE ORDER Performed By: #### L 400.0001, L100.0100, L500.4050 ####[facility] [address] [place], [address] KETONE UR Normal Negative [facility] Comment on above: Order Comment: COLLE CTOR TO SPECIFY Result Comment: DUPL ICATE ORDER Performed By: #### L 400.0001, L100.0100, L500.4050 ####[facility] [address] [place], [address] LEUK ESTERASE Normal Negative [facility] Comment on above: Order Comment: COLLE CTOR TO SPECIFY Result Comment: DUPL ICATE ORDER Performed By: #### L 400.0001, L100.0100, L500.4050 ####[facility] [address] [place], [address] Mucus Ql (Urine sed) Normal [facility] Comment on above: Order Comment: COLLE CTOR TO SPECIFY Result Comment: DUPL ICATE ORDER Performed By: #### L 400.0001, L100.0100, L500.4050 ####[facility] [address] [place], [address] Nitrite Ql (U) Normal Negative [facility] Comment on above: Order Comment: COLLE CTOR TO SPECIFY Result Comment: DUPL ICATE ORDER Performed By: #### L 400.0001, L100.0100, L500.4050 ####[facility] [address] [place], [address] OCCULT BLOOD-UR Normal Negative [facility] Comment on above: Order Comment: COLLE CTOR TO SPECIFY Result Comment: DUPL ICATE ORDER Performed By: #### L 400.0001, L100.0100, L500.4050 ####[facility] [address] [place], [address] pH UR Normal 5.0 - 8.0 [facility] Comment on above: Order Comment: COLLE CTOR TO SPECIFY Result Comment: DUPL ICATE ORDER Performed By: #### L 400.0001, L100.0100, L500.4050 ####[facility] [address] [place], [address] PROT DIPSTX Normal Negative [facility] Comment on above: Order Comment: COLLE CTOR TO SPECIFY Result Comment: DUPL ICATE ORDER Performed By: #### L 400.0001, L100.0100, L500.4050 ####[facility] [address] [place], [address] RBC Normal 4.2-5.4 [facility] Comment on above: Order Comment: COLLE CTOR TO SPECIFY Result Comment: DUPL ICATE ORDER Performed By: #### L 400.0001, L100.0100, L500.4050 ####[facility] [address] [place], [address] SP.GR. DIPSTX Normal 1.002-1.03 0 [facility] Comment on above: Order Comment: COLLE CTOR TO SPECIFY Result Comment: DUPL ICATE ORDER Performed By: #### L 400.0001, L100.0100, L500.4050 ####[facility] [address] [place], [address] UR Preservative Normal [facility] Comment on above: Order Comment: COLLE CTOR TO SPECIFY Result Comment: DUPL ICATE ORDER Performed By: #### L 400.0001, L100.0100, L500.4050 ####[facility] [address] [place], [address] UROBILI Normal Normal [facility] Comment on above: Order Comment: COLLE CTOR TO SPECIFY Result Comment: DUPL ICATE ORDER Performed By: #### L 400.0001, L100.0100, L500.4050 ####[facility] [address] [place], [address] WBC Normal 4.4-11.0 [facility] Comment on above: Order Comment: COLLE CTOR TO SPECIFY Result Comment: DUPL ICATE ORDER Performed By: #### L 400.0001, L100.0100, L500.4050 ####[facility] [address] [place], [address] Urine clarityOrdered By: Leonard Corral on 03-18-2025 Clarity (U) Clear Clear [facility] Urine color determinationOrd ered By: David Corral on 03-18-2025 Color (U) Yellow Yellow [facility] Urine glucose detectionOrder ed By: David Corral on 03-18-2025 Glucose Ql (U) Normal mg/dl Normal [facility] Urine leukocyte esterase det ection by dipstickOrdered By: David Corral on 03-18-2025 Leukocyte esterase Test strip Ql (U) Negative Negative [facility] Urine pHOrdered By: David gillespie on 03-18-2025 pH (U) 6.0 [pH] 5.0 - 8.0 [facility] Urine sediment bacteria coun t by microscopy (number/high power field)Ordered By: David Corral on 03-18-2025 Bacteria LM.HPF (Urine sed) [#/Area] 0 /[HPF] None Seen [facility] Urine specific gravity measu rementOrdered By: David Corral on 03-18-2025 Specific gravity (U) [Rel density] 1.015 1.002-1.03 0 [facility] Urine urobilinogen measureme ntOrdered By: David Corral on 03-18-2025 Urobilinogen Ql (U) Normal mg/dl Normal [facility] White blood cell countOrdere d By: David Corral on 03-18-2025 White blood cell count 0 SEEN /hpf 0-5 [facility] Absolute lymphocyte countOrd ered By: David Corral on 03-17-2025 Lymphocytes Auto (Unsp spec) [#/Vol] 1.27 10*3/uL 0.83-4.51 [facility] Anion gap in Serum or Plasma Ordered By: David Corral on 03-17-2025 Anion gap [Moles/Vol] 13 mmol/L 5-15 [facility] Automated lymphocyte count a s percentage of total leukocytesOrdered By: David Corral on 03-17-2025 Lymphocytes/100 WBC Auto (Unsp spec) 18.4 % Low 19- [facility] BUN/creatinine ratioOrdered By: David Corral on 03-17-2025 Urea nitrogen/Creatinine [Mass ratio] 15.6 mg/mg 10-20 [facility] Basophil percentageOrdered B y: David Corral on 03-17-2025 Basophils/100 WBC (Bld) 0.1 % 0-1 [facility] Bilirubin, totalOrdered By: David Corral on 03-17-2025 Bilirubin [Mass/Vol] 0.46 mg/dL 0.00-1.30 [facility] CBC W/Diff, Automatedon 02-27 Absolute Lymph 1.27 X10 3/uL Normal 0.83-4.51 [facility] Comment on above: Performed By: #### L 100.0100, L400.0001, L501.5200, L500.4050 ####[facility] [address] [place], [address] Absolute Neut 4.7 X10 3/uL Normal 2.0-7.7 [facility] Comment on above: Performed By: #### L 100.0100, L400.0001, L501.5200, L500.4050 ####[facility] [address] [place], [address] Basophils/100 WBC (Bld) 0.1 % Normal 0-1 [facility] Comment on above: Performed By: #### L 100.0100, L400.0001, L501.5200, L500.4050 ####[facility] [address] [place], [address] Eosinophils/100 WBC (Bld) 4.3 % Normal 0-5 [facility] Comment on above: Performed By: #### L 100.0100, L400.0001, L501.5200, L500.4050 ####[facility] [address] [place], [address] Erythrocyte distribution width (RBC) [Ratio] 14.0 % Normal 11.6-14.6 [facility] Comment on above: Performed By: #### L 100.0100, L400.0001, L501.5200, L500.4050 ####[facility] [address] [place], [address] Hematocrit (Bld) [Volume fraction] 31.9 % Low 37-47 [facility] Comment on above: Performed By: #### L 100.0100, L400.0001, L501.5200, L500.4050 ####[facility] [address] [place], [address] Hemoglobin (Bld) [Mass/Vol] 10.5 g/dL Low 12.0-15.0 [facility] Comment on above: Performed By: #### L 100.0100, L400.0001, L501.5200, L500.4050 ####[facility] [address] [place], [address] IG% 0.400 Normal 0.0-0.9 [facility] Comment on above: Result Comment: IG% - Immature Granulocytes (promyelocytes, myelocytes andmetamyelocytes) > 1% indicates that a LEFT SHIFT is Present. Performed By: #### L 100.0100, L400.0001, L501.5200, L500.4050 ####[facility] [address] [place], [address] Lymphocytes/100 WBC (Bld) 18.4 % Low 19-41 [facility] Comment on above: Performed By: #### L 100.0100, L400.0001, L501.5200, L500.4050 ####[facility] [address] [place], [address] MCH (RBC) [Entitic mass] 32.2 pg High 27.0-32.0 [facility] Comment on above: Performed By: #### L 100.0100, L400.0001, L501.5200, L500.4050 ####[facility] [address] [place], [address] MCHC (RBC) [Mass/Vol] 32.9 g/dL Normal 32-36 [facility] Comment on above: Performed By: #### L 100.0100, L400.0001, L501.5200, L500.4050 ####[facility] [address] [place], [address] MCV (RBC) [Entitic vol] 97.9 fL Normal 81-99 [facility] Comment on above: Performed By: #### L 100.0100, L400.0001, L501.5200, L500.4050 ####[facility] [address] [place], [address] Monocytes/100 WBC (Bld) 8.8 % Normal 0-10 [facility] Comment on above: Performed By: #### L 100.0100, L400.0001, L501.5200, L500.4050 ####[facility] [address] [place], [address] Neutrophils/100 WBC (Bld) 68.0 % Normal 47-70 [facility] Comment on above: Performed By: #### L 100.0100, L400.0001, L501.5200, L500.4050 ####[facility] [address] [place], [address] Nucleated RBC (Bld) [#/Vol] 0 10*3/uL Normal 0-5 [facility] Comment on above: Performed By: #### L 100.0100, L400.0001, L501.5200, L500.4050 ####[facility] [address] [place], [address] Platelet mean volume (Bld) [Entitic vol] 12.4 fL High 6.2-12.0 [facility] Comment on above: Performed By: #### L 100.0100, L400.0001, L501.5200, L500.4050 ####[facility] [address] [place], [address] Platelets (Bld) [#/Vol] 187 10*3/uL Normal 150-450 [facility] Comment on above: Performed By: #### L 100.0100, L400.0001, L501.5200, L500.4050 ####[facility] [address] [place], [address] RBC (Bld) [#/Vol] 3.26 10*6/uL Low 4.2-5.4 [facility] Comment on above: Performed By: #### L 100.0100, L400.0001, L501.5200, L500.4050 ####[facility] [address] [place], [address] RDW SD 50.7 fl High 35.1-43.9 [facility] Comment on above: Performed By: #### L 100.0100, L400.0001, L501.5200, L500.4050 ####[facility] [address] [place], [address] WBC (Bld) [#/Vol] 6.9 10*3/uL Normal 4.4-11.0 [facility] Comment on above: Performed By: #### L 100.0100, L400.0001, L501.5200, L500.4050 ####[facility] [address] [place], [address] Carbon dioxide, total [Moles /volume] in Central venous bloodOrdered By: David Corral on 03-17-2025 CO2 [Moles/Vol] 24.4 mmol/L 21.0-32.0 [facility] Chloride assayOrdered By: Nisa Corral on 03-17-2025 Chloride [Moles/Vol] 104 mmol/L 98-108 [facility] Comprehensive Metabolic Prof ilon 03-17-2025 Albumin [Mass/Vol] 3.8 g/dL Normal 3.4-4.8 [facility] Comment on above: Performed By: #### L 100.0100, L400.0001, L501.5200, L500.4050 ####[facility] [address] [place], [address] Albumin/Globulin [Mass ratio] 1.1 {ratio} Normal 0.9-2.4 [facility] Comment on above: Performed By: #### L 100.0100, L400.0001, L501.5200, L500.4050 ####[facility] [address] [place], [address] ALK PHOS 79 U/L Normal 35-104 [facility] Comment on above: Performed By: #### L 100.0100, L400.0001, L501.5200, L500.4050 ####[facility] [address] [place], [address] ALT [Catalytic activity/Vol] 7 U/L Normal <=34 [facility] Comment on above: Performed By: #### L 100.0100, L400.0001, L501.5200, L500.4050 ####[facility] [address] [place], [address] AST [Catalytic activity/Vol] 14 U/L Normal <=31 [facility] Comment on above: Performed By: #### L 100.0100, L400.0001, L501.5200, L500.4050 ####[facility] [address] [place], [address] Bilirubin [Mass/Vol] 0.46 mg/dL Normal 0.00-1.30 [facility] Comment on above: Performed By: #### L 100.0100, L400.0001, L501.5200, L500.4050 ####[facility] [address] [place], [address] BUN/CRE 15.6 RATIO Normal 10-20 [facility] Comment on above: Performed By: #### L 100.0100, L400.0001, L501.5200, L500.4050 ####[facility] [address] [place], [address] Calcium [Mass/Vol] 9.9 mg/dL Normal 7.6-11.0 [facility] Comment on above: Performed By: #### L 100.0100, L400.0001, L501.5200, L500.4050 ####[facility] [address] [place], [address] Chloride [Moles/Vol] 104 mmol/L Normal 98-108 [facility] Comment on above: Performed By: #### L 100.0100, L400.0001, L501.5200, L500.4050 ####[facility] [address] [place], [address] CO2 [Moles/Vol] 24.4 mmol/L Normal 21.0-32.0 [facility] Comment on above: Performed By: #### L 100.0100, L400.0001, L501.5200, L500.4050 ####[facility] [address] [place], [address] Creatinine [Mass/Vol] 1.66 mg/dL High 0.70-1.20 [facility] Comment on above: Performed By: #### L 100.0100, L400.0001, L501.5200, L500.4050 ####[facility] [address] [place], [address] ECRCL 41.75 ml/min Low 50-250 [facility] Comment on above: Performed By: #### L 100.0100, L400.0001, L501.5200, L500.4050 ####[facility] [address] [place], [address] GAP 13 Normal 5-15 [facility] Comment on above: Performed By: #### L 100.0100, L400.0001, L501.5200, L500.4050 ####[facility] [address] [place], [address] GFR/1.73 sq M.predicted among non-blacks MDRD (S/P/Bld) [Vol rate/Area] 33 mL/min/{1.73_m2} Low >60 [facility] Comment on above: Result Comment: mL/m in/1.73m2 CKD-EPI Creatinine Equation (2020) Performed By: #### L 100.0100, L400.0001, L501.5200, L500.4050 ####[facility] [address] [place], [address] Globulin (S) [Mass/Vol] 3.5 g/dL Normal 2.2-4.2 [facility] Comment on above: Performed By: #### L 100.0100, L400.0001, L501.5200, L500.4050 ####[facility] [address] [place], [address] Glucose [Mass/Vol] 108 mg/dL High 70-99 [facility] Comment on above: Performed By: #### L 100.0100, L400.0001, L501.5200, L500.4050 ####[facility] [address] [place], [address] Potassium [Moles/Vol] 3.6 mmol/L Normal 3.3-5.1 [facility] Comment on above: Performed By: #### L 100.0100, L400.0001, L501.5200, L500.4050 ####[facility] [address] [place], [address] Sodium [Moles/Vol] 141 mmol/L Normal 133-145 [facility] Comment on above: Performed By: #### L 100.0100, L400.0001, L501.5200, L500.4050 ####[facility] [address] [place], [address] T PROT 7.3 g/dL Normal 5.9-8.4 [facility] Comment on above: Performed By: #### L 100.0100, L400.0001, L501.5200, L500.4050 ####[facility] [address] [place], [address] Urea nitrogen [Mass/Vol] 26 mg/dL High 4-19 [facility] Comment on above: Performed By: #### L 100.0100, L400.0001, L501.5200, L500.4050 ####[facility] [address] [place], [place], [address] Eosinophil percentageOrdered By: David Corral on 03-17-2025 Eosinophils/100 WBC (Bld) 4.3 % 0-5 [facility] Erythrocyte distribution wid th ratioOrdered By: David Ellis on 03-17-2025 Erythrocyte distribution width (RBC) [Ratio] 14.0 % 11.6-14.6 [facility] Erythrocyte distribution wid th standard deviationOrdered By: David Ellis on 03-17-2025 Erythrocyte distribution width (RBC) [Ratio] 50.7 fl High 35.1-43.9 [facility] Glomerular filtration rate ( GFR) estimation/1.73 sq m using serum, plasma, or whole bOrdered By: David Corral on 03-17-2025 GFR/1.73 sq M.predicted among non-blacks MDRD (S/P/Bld) [Vol rate/Area] 33 mL/min/{1.73_m2} Low >60 [facility] Hematocrit Auto (Bld) [Volum e fraction]Ordered By: David Corral on 03-17-2025 Hematocrit (Bld) [Volume fraction] 31.9 % Low 37-47 [facility] Hemoglobin measurementOrdere d By: David Corral on 03-17-2025 Hemoglobin (Bld) [Mass/Vol] 10.5 g/dL Low 12.0-15.0 [facility] Immature granulocytes/100 WB C Auto (Bld)Ordered By: David Corral on 03-17-2025 Immature granulocytes/100 WBC (Bld) 0.400 % 0.0-0.9 [facility] MCV (mean corpuscular volume ) determinationOrdered By: David Corral on 03-17-2025 MCV (RBC) [Entitic vol] 97.9 fL 81-99 [facility] Magnesiumon 03-17-2025 Magnesium [Mass/Vol] 1.4 mg/dL Low 1.5-2.2 [facility] Comment on above: Performed By: #### L 100.0100, L400.0001, L501.5200, L500.4050 ####[facility] [address] [place], [address] Magnesium measurement (mass/ volume)Ordered By: David Corral on 03-17-2025 Magnesium (Unsp spec) [Mass/Vol] 1.4 mg/dL Low 1.5-2.2 [facility] Mean corpuscular hemoglobin (MCH) determinationOrdered By: David Corral on 03-17-2025 MCH (RBC) [Entitic mass] 32.2 pg High 27.0-32.0 [facility] Monocyte percentageOrdered B y: David Corral on 03-17-2025 Monocytes/100 WBC (Bld) 8.8 % 0-10 [facility] Neutrophil percentageOrdered By: David Corral on 03-17-2025 Neutrophils/100 WBC (Bld) 68.0 % 47-70 [facility] No Panel InformationOrdered By: David Corral on 03-17-2025 14 U/L <32 [facility] Platelet countOrdered By: Nisa Corral on 03-17-2025 Platelets (Bld) [#/Vol] 187 10*3/uL 150-450 [facility] Potassium measurement (mass/ volume)Ordered By: David Corral on 03-17-2025 Potassium (Unsp spec) [Mass/Vol] 3.6 mmol/L 3.3-5.1 [facility] RBC Auto (Bld) [#/Vol]Ordere d By: David Corral on 03-17-2025 RBC (Bld) [#/Vol] 3.26 10*6/uL Low 4.2-5.4 [facility] Serum creatinine measurement (mass/volume)Ordered By: David Corral on 03-17-2025 Creatinine [Mass/Vol] 1.66 mg/dL High 0.70-1.20 [facility] Serum globulin measurementOr dered By: David Corral on 03-17-2025 Globulin (S) [Mass/Vol] 3.5 g/dL 2.2-4.2 [facility] Serum glucose measurement (m ass/volume)Ordered By: David Corral on 03-17-2025 Glucose [Mass/Vol] 108 mg/dL High 70-99 [facility] Serum or plasma alanine garcia otransferase (ALT) measurementOrdered By: David Corral on 03-17-2025 ALT [Catalytic activity/Vol] 7 U/L <35 [facility] Serum or plasma albumin addie urement (mass/volume)Ordered By: David Corral on 03-17-2025 Albumin [Mass/Vol] 3.8 g/dL 3.4-4.8 [facility] Serum or plasma albumin/glob ulin mass ratioOrdered By: David Corral on 03-17-2025 Albumin/Globulin [Mass ratio] 1.1 {ratio} 0.9-2.4 [facility] Serum or plasma alkaline jabier sphatase measurementOrdered By: David Corral on 03-17-2025 ALP [Catalytic activity/Vol] 79 U/L 35-104 [facility] Serum or plasma calcium addie urement (mass/volume)Ordered By: David oCrral on 03-17-2025 Calcium [Mass/Vol] 9.9 mg/dL 7.6-11.0 [facility] Serum or plasma urea nitroge n measurement (mass/volume)Ordered By: David Corral on 03-17-2025 Urea nitrogen [Mass/Vol] 26 mg/dL High 4-19 [facility] Sodium levelOrdered By: Jacky Corral on 03-17-2025 Sodium [Moles/Vol] 141 mmol/L 133-145 [facility] Total proteinOrdered By: Leonard Corral on 03-17-2025 Protein [Mass/Vol] 7.3 g/dL 5.9-8.4 [facility] Urinalysis, Completeon 03-17 BACTERIA 1+ /hpf Normal None Seen [facility] Comment on above: Order Comment: COLLE CTOR TO SPECIFY Performed By: #### L 100.0100, L400.0001, L501.5200, L500.4050 ####[facility] [address] [place], [address] EPI,SQUAMOUS 0-5 SEEN Normal 5-10 [facility] Comment on above: Order Comment: FRANDY CTOR TO SPECIFY Performed By: #### L 100.0100, L400.0001, L501.5200, L500.4050 ####[facility] [address] [place], [address] WBC 0-5 SEEN Normal 0-5 [facility] Comment on above: Order Comment: FRANDY CTOR TO SPECIFY Performed By: #### L 100.0100, L400.0001, L501.5200, L500.4050 ####[facility] [address] [place], [address] Mucus Ql (Urine sed) 0 SEEN Normal [facility] Comment on above: Order Comment: FRANDY CTOR TO SPECIFY Performed By: #### L 100.0100, L400.0001, L501.5200, L500.4050 ####[facility] [address] [place], [address] RBC 0 SEEN Normal 0-5 [facility] Comment on above: Order Comment: FRANDY CTOR TO SPECIFY Performed By: #### L 100.0100, L400.0001, L501.5200, L500.4050 ####[facility] [address] [place], [address] White blood cell (WBC) count Ordered By: David Corral on 03-17-2025 WBC (Bld) [#/Vol] 6.9 10*3/uL 4.4-11.0 [facility] Internal Medicine Office Vis iton 03-16-2025 Internal Medicine Office Visit Normal [facility] No Panel InformationOrdered By: Stephie Veladre on 03-16-2025 5.4 % 4.2-6.3 [facility] Cancer Antigen 125on 025 CA 125 23.6 U/mL Normal 0.0-38.1 [facility] Comment on above: Result Comment: [employer] Electrochemiluminescence Immunoassay(ECLIA)Values obtained with different assay methods or kits cannotbe used interchangeably. Results cannot be interpreted asabsolute evidence of the presence or absence of malignantdisease.Performed at: [facility] [id number] [place], [place] [id number] Director: Joe Olivier PhD, Phone: [phone] Performed By: #### L 504.2610, L3100.5000, L503.6550 ####[facility] [address] [place], [place], [id number] Absolute lymphocyte countOrd ered By: [facility] on 03-03-2025 Lymphocytes Auto (Unsp spec) [#/Vol] 1.35 10*3/uL 0.83-4.51 [facility] Absolute neutrophil countOrd ered By: [facility] on 03-03-2025 Neutrophils (Bld) [#/Vol] 5.3 10*3/uL 2.0-7.7 [facility] Anion gap in Serum or Plasma Ordered By: [facility] on 03-03-2025 Anion gap [Moles/Vol] 15 mmol/L 5-15 [facility] Automated lymphocyte count a s percentage of total leukocytesOrdered By: [facility] on 03-03-2025 Lymphocytes/100 WBC Auto (Unsp spec) 17.9 % Low 19-41 [facility] BUN/creatinine ratioOrdered By: [facility] on 03-03-2025 Urea nitrogen/Creatinine [Mass ratio] 19.0 mg/mg 10-20 [facility] Basophil percentageOrdered B y: David [facility] on 03-03-2025 Basophils/100 WBC (Bld) 0.4 % 0-1 [facility] Bilirubin, totalOrdered By: [facility] on 03-03-2025 Bilirubin [Mass/Vol] 0.43 mg/dL 0.00-1.30 [facility] CBC W/Diff, Automatedon Absolute Lymph 1.35 X10 3/uL Normal 0.83-4.51 [facility] Comment on above: Performed By: #### L 101.9900, L501.6710, L500.4050, L503.6030, L100.0100, L100.9950 ####[facility] [address] [place], [address] Absolute Neut 5.3 X10 3/uL Normal 2.0-7.7 [facility] Comment on above: Performed By: #### L 101.9900, L501.6710, L500.4050, L503.6030, L100.0100, L100.9950 ####[facility] [address] [place], [address] Basophils/100 WBC (Bld) 0.4 % Normal 0-1 [facility] Comment on above: Performed By: #### L 101.9900, L501.6710, L500.4050, L503.6030, L100.0100, L100.9950 ####[facility] [address] [place], [address] Eosinophils/100 WBC (Bld) 2.5 % Normal 0-5 [facility] Comment on above: Performed By: #### L 101.9900, L501.6710, L500.4050, L503.6030, L100.0100, L100.9950 ####[facility] [address] [place], [address] Erythrocyte distribution width (RBC) [Ratio] 14.5 % Normal 11.6-14.6 [facility] Comment on above: Performed By: #### L 101.9900, L501.6710, L500.4050, L503.6030, L100.0100, L100.9950 ####[facility] [address] [place], [address] Hematocrit (Bld) [Volume fraction] 35.0 % Low 37-47 [facility] Comment on above: Performed By: #### L 101.9900, L501.6710, L500.4050, L503.6030, L100.0100, L100.9950 ####[facility] [address] [place], [address] Hemoglobin (Bld) [Mass/Vol] 11.6 g/dL Low 12.0-15.0 [facility] Comment on above: Performed By: #### L 101.9900, L501.6710, L500.4050, L503.6030, L100.0100, L100.9950 ####[facility] [address] [place], [address] IG% 0.400 Normal 0.0-0.9 [facility] Comment on above: Result Comment: IG% - Immature Granulocytes (promyelocytes, myelocytes andmetamyelocytes) > 1% indicates that a LEFT SHIFT is Present. Performed By: #### L 101.9900, L501.6710, L500.4050, L503.6030, L100.0100, L100.9950 ####[facility] [address] [place], [address] Lymphocytes/100 WBC (Bld) 17.9 % Low 19-41 [facility] Comment on above: Performed By: #### L 101.9900, L501.6710, L500.4050, L503.6030, L100.0100, L100.9950 ####[facility] [address] [place], [address] MCH (RBC) [Entitic mass] 32.3 pg High 27.0-32.0 [facility] Comment on above: Performed By: #### L 101.9900, L501.6710, L500.4050, L503.6030, L100.0100, L100.9950 ####[facility] [address] [place], [address] MCHC (RBC) [Mass/Vol] 33.1 g/dL Normal 32-36 [facility] Comment on above: Performed By: #### L 101.9900, L501.6710, L500.4050, L503.6030, L100.0100, L100.9950 ####[facility] [address] [place], [address] MCV (RBC) [Entitic vol] 97.5 fL Normal 81-99 [facility] Comment on above: Performed By: #### L 101.9900, L501.6710, L500.4050, L503.6030, L100.0100, L100.9950 ####[facility] [address] [place], [address] Monocytes/100 WBC (Bld) 8.5 % Normal 0-10 [facility] Comment on above: Performed By: #### L 101.9900, L501.6710, L500.4050, L503.6030, L100.0100, L100.9950 ####[facility] [address] [place], [address] Neutrophils/100 WBC (Bld) 70.3 % High 47-70 [facility] Comment on above: Performed By: #### L 101.9900, L501.6710, L500.4050, L503.6030, L100.0100, L100.9950 ####[facility] [address] [place], [address] Nucleated RBC (Bld) [#/Vol] 0 10*3/uL Normal 0-5 [facility] Comment on above: Performed By: #### L 101.9900, L501.6710, L500.4050, L503.6030, L100.0100, L100.9950 ####[facility] [address] [place], [address] Platelet mean volume (Bld) [Entitic vol] 12.2 fL High 6.2-12.0 [facility] Comment on above: Performed By: #### L 101.9900, L501.6710, L500.4050, L503.6030, L100.0100, L100.9950 ####[facility] [address] [place], [address] Platelets (Bld) [#/Vol] 185 10*3/uL Normal 150-450 [facility] Comment on above: Performed By: #### L 101.9900, L501.6710, L500.4050, L503.6030, L100.0100, L100.9950 ####[facility] [address] [place], [address] RBC (Bld) [#/Vol] 3.59 10*6/uL Low 4.2-5.4 [facility] Comment on above: Performed By: #### L 101.9900, L501.6710, L500.4050, L503.6030, L100.0100, L100.9950 ####[facility] [address] [place], [address] RDW SD 52.0 fl High 35.1-43.9 [facility] Comment on above: Performed By: #### L 101.9900, L501.6710, L500.4050, L503.6030, L100.0100, L100.9950 ####[facility] [address] [place], [address] WBC (Bld) [#/Vol] 7.5 10*3/uL Normal 4.4-11.0 [facility] Comment on above: Performed By: #### L 101.9900, L501.6710, L500.4050, L503.6030, L100.0100, L100.9950 ####[facility] [address] [place], [address] CRPon 03-03-2025 C-REACTIVE PROT 24.10 mg/L High 0.0-3.0 [facility] Comment on above: Performed By: #### L 101.9900, L501.6710, L500.4050, L503.6030, L100.0100, L100.9950 ####[facility] [address] [place], [place], [address] Cancer antigen 125 (CA-125) measurementOrdered By: David Corral on 03-03-2025 Cancer antigen 125 (CA-125) measurement 23.6 U/mL 0.0-38.1 [facility] Comment on above: [facility] [employer] ectrochemiluminescence Immunoassay(ECLIA)Values obtained with different assay methods or kits cannotbe used interchangeably. Results cannot be interpreted asabsolute evidence of the presence or absence of malignantdisease.Performed at: [address] [id number] Director: Joe Olivier PhD, Phone: [phone] Carbon dioxide, total [Moles /volume] in Central venous bloodOrdered By: David Corral on 03-03-2025 CO2 [Moles/Vol] 21.5 mmol/L 21.0-32.0 [facility] Chloride assayOrdered By: Nisa Corral on 03-03-2025 Chloride [Moles/Vol] 104 mmol/L 98-108 [facility] Comprehensive Metabolic Prof ilon 03-03-2025 Albumin [Mass/Vol] 4.2 g/dL Normal 3.4-4.8 [facility] Comment on above: Performed By: #### L 101.9900, L501.6710, L500.4050, L503.6030, L100.0100, L100.9950 ####[facility] [address] [place], [address] Albumin/Globulin [Mass ratio] 1.1 {ratio} Normal 0.9-2.4 [facility] Comment on above: Performed By: #### L 101.9900, L501.6710, L500.4050, L503.6030, L100.0100, L100.9950 ####[facility] [address] [place], [address] ALK PHOS 86 U/L Normal 35-104 [facility] Comment on above: Performed By: #### L 101.9900, L501.6710, L500.4050, L503.6030, L100.0100, L100.9950 ####[facility] [address] [place], [address] ALT [Catalytic activity/Vol] 11 U/L Normal <=34 [facility] Comment on above: Performed By: #### L 101.9900, L501.6710, L500.4050, L503.6030, L100.0100, L100.9950 ####[facility] [address] [place], [address] AST [Catalytic activity/Vol] 16 U/L Normal <=31 [facility] Comment on above: Performed By: #### L 101.9900, L501.6710, L500.4050, L503.6030, L100.0100, L100.9950 ####[facility] [address] [place], [address] Bilirubin [Mass/Vol] 0.43 mg/dL Normal 0.00-1.30 [facility] Comment on above: Performed By: #### L 101.9900, L501.6710, L500.4050, L503.6030, L100.0100, L100.9950 ####[facility] [address] [place], [address] BUN/CRE 19.0 RATIO Normal 10-20 [facility] Comment on above: Performed By: #### L 101.9900, L501.6710, L500.4050, L503.6030, L100.0100, L100.9950 ####[facility] [address] [place], [address] Calcium [Mass/Vol] 10.1 mg/dL Normal 7.6-11.0 [facility] Comment on above: Performed By: #### L 101.9900, L501.6710, L500.4050, L503.6030, L100.0100, L100.9950 ####[facility] [address] [place], [address] Chloride [Moles/Vol] 104 mmol/L Normal 98-108 [facility] Comment on above: Performed By: #### L 101.9900, L501.6710, L500.4050, L503.6030, L100.0100, L100.9950 ####[facility] [address] [place], [address] CO2 [Moles/Vol] 21.5 mmol/L Normal 21.0-32.0 [facility] Comment on above: Performed By: #### L 101.9900, L501.6710, L500.4050, L503.6030, L100.0100, L100.9950 ####[facility] [address] [place], [address] Creatinine [Mass/Vol] 2.38 mg/dL High 0.70-1.20 [facility] Comment on above: Performed By: #### L 101.9900, L501.6710, L500.4050, L503.6030, L100.0100, L100.9950 ####[facility] [address] [place], [address] ECRCL 29.12 ml/min Low 50-250 [facility] Comment on above: Performed By: #### L 101.9900, L501.6710, L500.4050, L503.6030, L100.0100, L100.9950 ####[facility] [address] [place], [address] GAP 15 Normal 5-15 [facility] Comment on above: Performed By: #### L 101.9900, L501.6710, L500.4050, L503.6030, L100.0100, L100.9950 ####[facility] [address] [place], [address] GFR/1.73 sq M.predicted among non-blacks MDRD (S/P/Bld) [Vol rate/Area] 22 mL/min/{1.73_m2} Low >60 [facility] Comment on above: Result Comment: mL/m in/1.73m2 CKD-EPI Creatinine Equation (2020) Performed By: #### L 101.9900, L501.6710, L500.4050, L503.6030, L100.0100, L100.9950 ####[facility] [address] [place], [address] Globulin (S) [Mass/Vol] 3.6 g/dL Normal 2.2-4.2 [facility] Comment on above: Performed By: #### L 101.9900, L501.6710, L500.4050, L503.6030, L100.0100, L100.9950 ####[facility] [address] [place], [address] Glucose [Mass/Vol] 98 mg/dL Normal 70-99 [facility] Comment on above: Performed By: #### L 101.9900, L501.6710, L500.4050, L503.6030, L100.0100, L100.9950 ####[facility] [address] [place], [address] Potassium [Moles/Vol] 3.7 mmol/L Normal 3.3-5.1 [facility] Comment on above: Performed By: #### L 101.9900, L501.6710, L500.4050, L503.6030, L100.0100, L100.9950 ####[facility] [address] [place], [address] Sodium [Moles/Vol] 141 mmol/L Normal 133-145 [facility] Comment on above: Performed By: #### L 101.9900, L501.6710, L500.4050, L503.6030, L100.0100, L100.9950 ####[facility] [address] [place], [address] T PROT 7.8 g/dL Normal 5.9-8.4 [facility] Comment on above: Performed By: #### L 101.9900, L501.6710, L500.4050, L503.6030, L100.0100, L100.9950 ####[facility] [address] [place], [address] Urea nitrogen [Mass/Vol] 45 mg/dL High 4-19 [facility] Comment on above: Performed By: #### L 101.9900, L501.6710, L500.4050, L503.6030, L100.0100, L100.9950 ####[facility] [address] [place], [address] Eosinophil percentageOrdered By: David Corral on 03-03-2025 Eosinophils/100 WBC (Bld) 2.5 % 0-5 [facility] Erythrocyte Sed Rateon 03-03 SED RATE 38 mm/hr High 0-30 [facility] Comment on above: Performed By: #### L 101.9900, L501.6710, L500.4050, L503.6030, L100.0100, L100.9950 ####[facility] [address] [place], [address] Erythrocyte distribution wid th ratioOrdered By: David Corral on 03-03-2025 Erythrocyte distribution width (RBC) [Ratio] 14.5 % 11.6-14.6 [facility] Erythrocyte distribution wid th standard deviationOrdered By: David Corral on 03-03-2025 Erythrocyte distribution width (RBC) [Ratio] 52.0 fl High 35.1-43.9 [facility] Erythrocyte sedimentation ra teOrdered By: David Corral on 03-03-2025 ESR (Bld) [Velocity] 38 mm/h High 0-30 [facility] Ferritinon 03-03-2025 Ferritin [Mass/Vol] 1348 ng/mL High 22-378 [facility] Comment on above: Performed By: #### L 504.2610, L3100.5000, L503.6550 ####[facility] [address] [place], [address] Glomerular filtration rate ( GFR) estimation/1.73 sq m using serum, plasma, or whole bOrdered By: David Corral on 03-03-2025 GFR/1.73 sq M.predicted among non-blacks MDRD (S/P/Bld) [Vol rate/Area] 22 mL/min/{1.73_m2} Low >60 [facility] Comment on above: mL/min/1.73m2 CKD-EP I Creatinine Equation (2020) Hematocrit Auto (Bld) [Volum e fraction]Ordered By: David Corral on 03-03-2025 Hematocrit (Bld) [Volume fraction] 35.0 % Low 37-47 [facility] Hemoglobin measurementOrdere d By: David Corral on 03-03-2025 Hemoglobin (Bld) [Mass/Vol] 11.6 g/dL Low 12.0-15.0 [facility] Immature granulocytes/100 WB C Auto (Bld)Ordered By: David Corral on 03-03-2025 Immature granulocytes/100 WBC (Bld) 0.400 % 0.0-0.9 [facility] Comment on above: IG% - Immature Granu locytes (promyelocytes, myelocytes and metamyelocytes) > 1% indicates that a LEFT SHIFT is Present. Iron measurement (mass/mass) Ordered By: David Corral on 03-03-2025 Iron (Unsp spec) [Mass/Mass] 53 ug/dL 50-170 [facility] Iron+Iron Binding Capacityon 03-03-2025 TIBC 205 ug/dL Low 250-450 [facility] Comment on above: Performed By: #### L 101.9900, L501.6710, L500.4050, L503.6030, L100.0100, L100.9950 ####[facility] [address] [place], [address] Knee 4 or More Viewson 03-03 Knee 4 or More Views Normal [facility] Knee 4 or More Views Normal [facility] LDHon 03-03-2025 LDH 177 U/L Normal 84-246 [facility] Comment on above: Order Comment: 1 Performed By: #### L 504.2610, L3100.5000, L503.6550 ####[facility] [address] [place], [address] Laboratory - Chemistry and C hemistry - challengeOrdered By: David Corral on 03-03-2025 AST [Catalytic activity/Vol] 16 U/L <32 [facility] Lactate dehydrogenase (LDH) measurementOrdered By: David Corral on 03-03-2025 LDH [Catalytic activity/Vol] 177 U/L 84-246 [facility] MCV (mean corpuscular volume ) determinationOrdered By: David Corral on 03-03-2025 MCV (RBC) [Entitic vol] 97.5 fL 81-99 [facility] Mean corpuscular hemoglobin (MCH) determinationOrdered By: David Corral on 03-03-2025 MCH (RBC) [Entitic mass] 32.3 pg High 27.0-32.0 [facility] Mean corpuscular hemoglobin concentration (MCHC) determinationOrdered By: David Corral on 03-03-2025 MCHC (RBC) [Mass/Vol] 33.1 g/dL 32-36 [facility] Mean platelet volume determi nationOrdered By: David Corral on 03-03-2025 Platelet mean volume (Bld) [Entitic vol] 12.2 fL High 6.2-12.0 [facility] Monocyte percentageOrdered B y: David Corral on 03-03-2025 Monocytes/100 WBC (Bld) 8.5 % 0-10 [facility] Neutrophil percentageOrdered By: David Corral on 03-03-2025 Neutrophils/100 WBC (Bld) 70.3 % High 47-70 [facility] No Panel InformationOrdered By: David Corral on 03-03-2025 Unsaturated Iron Binding Capacity 152 ug/dL Low 228-428 [facility] 152 ug/dL Low 228-428 [facility] Nucleated red blood cell per centageOrdered By: David Corral on 03-03-2025 Nucleated RBC/100 WBC (Bld) [Ratio] 0 % 0-5 [facility] Oncology Visit Reporton 080 Oncology Visit Report Normal [facility] Platelet countOrdered By: Nisa Corral on 03-03-2025 Platelets (Bld) [#/Vol] 185 10*3/uL 150-450 [facility] Potassium measurement (mass/ volume)Ordered By: David Corral on 03-03-2025 Potassium (Unsp spec) [Mass/Vol] 3.7 mmol/L 3.3-5.1 [facility] RBC Auto (Bld) [#/Vol]Ordere d By: David Corral on 03-03-2025 RBC (Bld) [#/Vol] 3.59 10*6/uL Low 4.2-5.4 [facility] Retic Panelon 03-03-2025 IM RET FRACTION 4.90 Normal 3.00-15.90 [facility] Comment on above: Performed By: #### L 101.9900, L501.6710, L500.4050, L503.6030, L100.0100, L100.9950 ####[facility] [address] [place], [address] RET-HE 34.0 pg Normal 30-35 [facility] Comment on above: Performed By: #### L 101.9900, L501.6710, L500.4050, L503.6030, L100.0100, L100.9950 ####[facility] [address] [place], [address] Retic Count 1.19 Normal 0.5-1.5 [facility] Comment on above: Performed By: #### L 101.9900, L501.6710, L500.4050, L503.6030, L100.0100, L100.9950 ####[facility] [address] [place], [address] Reticulocyte hemoglobin equi valent (RET-He) measurementOrdered By: David Corral on 03-03-2025 Hemoglobin (Reticulocytes) [Entitic mass] 34.0 pg 30-35 [facility] Reticulocytes Auto (Bld) [#/ Vol]Ordered By: David Corral on 03-03-2025 Reticulocytes/100 RBC (Bld) 1.19 % 0.5-1.5 [facility] Serum creatinine measurement (mass/volume)Ordered By: aDvid Corral on 03-03-2025 Creatinine [Mass/Vol] 2.38 mg/dL High 0.70-1.20 [facility] Serum globulin measurementOr dered By: David Corral on 03-03-2025 Globulin (S) [Mass/Vol] 3.6 g/dL 2.2-4.2 [facility] Serum glucose measurement (m ass/volume)Ordered By: David Corral on 03-03-2025 Glucose [Mass/Vol] 98 mg/dL 70-99 [facility] Serum or plasma C reactive p rotein measurement (mass/volume)Ordered By: David Corral on 03-03-2025 CRP [Mass/Vol] 24.10 mg/L High 0.0-3.0 [facility] Serum or plasma alanine garcia otransferase (ALT) measurementOrdered By: David Corral on 03-03-2025 ALT [Catalytic activity/Vol] 11 U/L <35 [facility] Serum or plasma albumin addie urement (mass/volume)Ordered By: David Corral on 03-03-2025 Albumin [Mass/Vol] 4.2 g/dL 3.4-4.8 [facility] Serum or plasma albumin/glob ulin mass ratioOrdered By: David Corral on 03-03-2025 Albumin/Globulin [Mass ratio] 1.1 {ratio} 0.9-2.4 [facility] Serum or plasma alkaline jabier sphatase measurementOrdered By: David Corral on 03-03-2025 ALP [Catalytic activity/Vol] 86 U/L 35-104 [facility] Serum or plasma calcium addie urement (mass/volume)Ordered By: David Corral on 03-03-2025 Calcium [Mass/Vol] 10.1 mg/dL 7.6-11.0 [facility] Serum or plasma ferritin vanita surement (mass/volume)Ordered By: David Corral on 03-03-2025 Ferritin [Mass/Vol] 1348 ng/mL High 22-378 [facility] Serum or plasma iron saturat ion measurement (mass fraction)Ordered By: David Corral on 03-03-2025 Iron saturation [Mass fraction] 26.0 % 13-59 [facility] Comment on above: Previous reported re sult: 26.0 %Edited by: ASAD on 03/03/25:1658 Serum or plasma urea nitroge n measurement (mass/volume)Ordered By: David Corral on 03-03-2025 Urea nitrogen [Mass/Vol] 45 mg/dL High 4-19 [facility] Sodium levelOrdered By: Jacky Corral on 03-03-2025 Sodium [Moles/Vol] 141 mmol/L 133-145 [facility] Total proteinOrdered By: Leonard Corral on 03-03-2025 Protein [Mass/Vol] 7.8 g/dL 5.9-8.4 [facility] White blood cell (WBC) count Ordered By: David Corral on 03-03-2025 WBC (Bld) [#/Vol] 7.5 10*3/uL 4.4-11.0 [facility] 36on 02-12-[address] Corral's nurse and made her aware of PET results showing recurrent ovarian cancer. Faxed note with confirmation with PET results. She would like us to push the imaging thru to [facility]. Chart sent to [facility] to get images sent to them. Normal [facility] 36 Pt son (POA) called with PET, will refer back to Dr Corral for consideration of chemo Normal [facility] 36on 01-27-2025 36 Spoke with Aide Bandar casper, and will have to reschedule appt. Prep discussed and faxed. Given aide central scheduling line to reschedule Pet appt. Normal [facility] 36on 01-26-2025 36 LVM with patient and aide regarding CT scan. Appt is scheduled for 02/06/25 @ 2:00PM in [facility] Angelina Normal [facility] Office Visiton 01-23-2025 Follow-up visit [id number] Dana Young jose miguel 1955 F Date Provider Department Center 01/23/2025 [id number]-APUCNIFARAVIND [facility] None Family History Problem Relation Age of Onset Diabetes Mother Breast cancer Mother Alcohol abuse Father Stroke Maternal Grandfather Diabetes Paternal Grandmother Family Status - Relation Status Age at Mother Father Maternal Grandfather Paternal Grandmother Level of Service:01822 MT OFFICE/OUTPATIENT ESTABLISHED [facility] 10 MIN Reason for Visit and Comments: Ovarian Cancer [288058] Normal [facility] Progress Noteon 01-23-2025 Progress Note CC: 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 She was treated with debulking surgery followed by referral to medical oncology in [place]. Chemo with Dr Corral. In remission. Sees him every 3 months, states her cancer still in remission. Patient recently had a CT scan for umbilical hernia. IMPRESSION: Right periumbilical hernia containing transverse colon without evidence of strangulation. Additional small fat-containing umbilical hernia more superiorly. New 1.1 cm left infrarenal periaortic calcification suspicious for a leo metastasis given resection of a presumed calcified left upper quadrant omental metastasis seen in 2020. No recent studies available for comparison. Consider PET/CT. Patient is scheduled undergo surgery for repair of her hernia and is sent to oncology to evaluate the abnormal imaging study. The patient denies any signs or symptoms of recurrent ovarian cancer. Medical History[1] Surgical History[2] Social History[3] Current Medications[4] Review of Systems Soap, Iodine, Povidone-iodine, and Seasonal There were no vitals taken for this visit. Physical Exam Vitals and nursing note reviewed. Constitutional: Appearance: She is obese. Neurological: Mental Status: She is alert. Psychiatric: Mood and Affect: Mood normal. CT scan is personally been reviewed. It shows no evidence of ascites or omental or intra-abdominal metastasis but does show slightly enlarged left periaortic node with calcifications. Assessment: Abnormal CT scan showing a large left infrarenal node Plan: Recommended PET scan. If this does not light up then no further treatment will be necessary from a gynecologic oncology viewpoint. Patient is in agreement. Will await results of PET scan. [1] Past Medical History: Diagnosis Date Asthma Cancer (CMS/HCC) (HCC) GERD (gastroesophageal reflux disease) History of blood transfusion Hyperlipidemia Hypertension Obesity Renal insufficiency Sleep apnea [2] Past Surgical History: Procedure Laterality Date COLONOSCOPY ENDOMETRIAL ABLATION 2003 OTHER SURGICAL HISTORY 09/17/2020 SMA aneurysm ligation, application of Prevena wound vac TONSILLECTOMY (HISTORICAL) TOTAL ABDOMINAL HYSTERECTOMY W/ BILATERAL SALPINGOOPHORECTOMY 09/10/2020 NUSRAT/BSO/omentectomy snd debulking TUBAL LIGATION 1994 [3] Social History Socioeconomic History Marital status: Single Tobacco Use Smoking status: Former Smokeless tobacco: Never Substance and Sexual Activity Alcohol use: Not Currently Drug use: Never Sexual activity: Not Currently [4] Current Outpatient Medications Medication Sig Dispense Refill acetaminophen (Tylenol) 500 MG tablet Take by mouth. albuterol (Ventolin HFA) 108 (90 Base) MCG/ACT inhaler Inhale 2 puffs every 4 hours as needed. amLODIPine (Norvasc) 10 MG tablet budesonide-formoterol (Symbicort) 80-4.5 MCG/ACT inhaler every 12 hours. buPROPion SR (Wellbutrin SR) 150 MG 12 hr tablet Take 150 mg by mouth 2 times daily. fluticasone (Flonase) 50 MCG/ACT nasal spray Administer 1 spray into each nostril daily. hydrALAZINE (Apresoline) 25 MG tablet hydrALAZINE (Apresoline) 50 MG tablet iron polysaccharides (Nu-Iron,Niferex) 150 MG capsule Take 150 mg by mouth daily. metoprolol tartrate (Lopressor) 100 MG tablet every 12 hours. NIFEdipine CC (Adalat CC) 90 MG 24 hr tablet Every 24 hours. Niraparib Tosylate (Zejula) 200 MG tablet Take by mouth. ondansetron (Zofran) 4 MG/5ML solution Take 4 mg by mouth Once. pantoprazole (ProtoNix) 40 MG EC tablet POTASSIUM CHLORIDE ER PO Take 20 mEq by mouth. traMADol (Ultram) 50 MG tablet Take by mouth. VITAMIN D PO Take by mouth. No current facility-administered medications for this visit. [facility] 36on 01-20-2025 36 Spoke with patient's child, scheduled new patient appt for 01/23/25 @ 12:30 PM in [facility] 36on 01-15-[address] [facility] of [facility] and let them know patient was recommended to have ventral hernia repair. CT showed concerns of leo metastasis, so patient was also referred back to Dr. Carey for further evaluation, consideration of combo surgery if necessary. [facility] 36 Hailey calling from [facility] calling on behalf on the pt. She is currently residing there. -Dr Corral at the [facility] cancer center is who follows the pt for her care They would like us to to update them on this and what was discussed/found at the OV today, including the referral to Dr Aurelio Corral office phone : [phone] [facility] Office Visiton 01-15-2025 Follow-up visit [id number] Dana Young 1955 F Date Provider Department Center 01/15/2025 [id number]-BALCLIYJUAN BRICE [facility] MMC ALS None Family History Problem Relation Age of Onset Diabetes Mother Breast cancer Mother Alcohol abuse Father Stroke Maternal Grandfather Diabetes Paternal Grandmother Family Status - Relation Status Age at Mother Father Maternal Grandfather Paternal Grandmother Level of Service:82684 MT OFFICE/OUTPATIENT ESTABLISHED LOW MDM 20 MIN Reason for Visit and Comments: Follow-up [[id number]] - F/U CT RESULTS, DISCUSS HERNIA REPAIR [facility] Progress Noteon 01-15-2025 Progress Note [facility] Laparoscopic [facility] Patient Name: Britta Young Date: 01/15/25 HPI (12/23/24): Britta Young is a 69 y.o. female who presents with concern of periumbilical bulge. She states a few weeks ago she noticed a bulge just right of her umbilicus which is since softened. She had concern for hernia so was referred to us for surgical evaluation. At this time, she denies any pain, nausea, vomiting, changes in bowels and is not interested in intervention if it is not necessary. 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 PSH also significant for tubal ligation. Former smoker. Plan: - CT Interval History: Today, she presents for reevaluation. Completed recommended CT which shows that her incisional hernia is containing colon. With this we do recommend surgical intervention. Additionally her CT scan did comment on possible metastatic ovarian cancer around her aorta. She has history of ovarian cancer with debulking with Dr. Carey in 2020. Otherwise denies any further episodes of abdominal pain with her hernia since her previous evaluation. Notes reviewed: - [facility], [facility] - op note, 09/10/20, Dr. Carey: NUSRAT, BSO, debulking Data reviewed: - CT abd/pel, 12/31/24: personally interpreted, moderate sized ventral hernia containing colon, smaller umbilical hernia, new 1.1cm left infrarenal periaortic calcification suspicious for leo mests, b/l renal cysts of varying density, right middle and lower lobe bronchiolitis - CT abd/pel, 09/15/20: personally interpreted, pSBO, scattered air bubbles in retroperitoneal sot tissues of pelvis, small amount of perihepatic ascites, large well circumscribed rim calcified LUQ mass, multiple b/l renal cysts, cholelithiasis, small pericardial effusion, sm HH PMHx: Medical History[1] PSHx: Surgical History[2] PFMHx: Family History[3] ALL: Allergies[4] MEDS: Current Medications[5] SOCIAL Hx: Social History Socioeconomic History Marital status: Single Spouse name: Not on file Number of children: Not on file Years of education: Not on file Highest education level: Not on file Occupational History Not on file Tobacco Use Smoking status: Former Smokeless tobacco: Never Substance and Sexual Activity Alcohol use: Not Currently Drug use: Never Sexual activity: Not Currently Other Topics Concern Not on file Social History Narrative Not on file Social Drivers of Health Financial Resource Strain: Not on file Food Insecurity: Not on file Transportation Needs: Not on file Physical Activity: Not on file Stress: Not on file Social Connections: Not on file Intimate Partner Violence: Not on file Housing Stability: Not on file ROS: General: negative for - chills, fatigue, fever or malaise Gastrointestinal: negative for - change in bowel habits, hemoptysis, hematemesis, hematochezia, dysphagia, nausea, vomiting, diarrhea, constipation, weight loss DIAGNOSTIC EVALUATION: as described above Physical Examination: BP 136/81 Pulse 68 Temp 36.1 ?C (97 ?F) (Temporal) Ht 5' 7 (1.702 m) Wt 264 lb (120 kg) SpO2 97% BMI 41.35 kg/m? She stands Height: 5' 7 (170.2 cm) tall with a weight of Weight: 264 lb (120 kg), resulting in a BMI of Body mass index is 41.35 kg/m?. General: The patient is awake, alert, and oriented, and is in no apparent distress; normal affect Respiratory: Normal effort, no gross abnormal breath sounds Abdomen: Appropriate girth, non-distended, well-healed surgical scars, soft, no masses or hepatosplenomegaly Hernia: Small, reducible ventral hernia Extremities: Ambulatory without assistance, no obvious deformities Skin: Warm, dry, intact; no obvious lesions or discoloration Assessment/Plan Britta was seen today for follow-up. Diagnoses and all orders for this visit: Incisional hernia, without obstruction or gangrene (Primary) - [facility] Gynecologic Oncology; Future History of ovarian cancer - [facility] Gynecologic Oncology; Future Class 3 severe obesity with body mass index (BMI) of 40.0 to 44.9 in adult, unspecified obesity type, unspecified whether serious comorbidity present Abnormal CT of the abdomen - [facility] Gynecologic Oncology; Future Ms. Young is a 69-year-old female, BMI 41, presenting for follow-up for incisional hernia containing bowel. With these findings we do recommend surgical intervention. Additionally her CT scan shows concern for metastatic ovarian cancer. We will first refer her back to Dr. Carey for reevaluation and consideration of possible concurrent surgery. Referral placed. I met with her today to discuss the risks and benefits of laparoscopic ventral hernia repair as outlined above. Visual aids were used to describe the procedure. All questions were answered to patient's sa (more content not included)... Normal [facility] Oncology Visit Reporton 12-28 Oncology Visit Report Normal [facility] Magnetic resonance imaging r eportOrdered By: Jerad Corona on 01-10-2025 Study report [facility] 36on 01-08-2025 36 Spoke to pt's aide Arden kostas about on 01/13/25 and she informed me that pt has a prior appt at 3pm on that day and asked for her to be moved to another time or day. I informed her that I have a opening 01/15/25 in [place] and she accepted it as it was closer to her location due to other clients. Pt has been rescheduled. [facility] Brain W/WO Contraston 2024 Brain W/WO Contrast Normal [facility] 36on 01-06-2025 36 Spoke to patient's s on, POA. Rec'd patient f/u in office to discuss results and next steps. Scheduled for next Sunday, 01/13 at 1:30. [facility] 36 Son returned call- w laurie I returned back but had to leave a voicemail. [facility] Spoke with the son, who is POA. Patient had cervical cancer and was treated with radiation and chemotherapy. Per son, the patient was suppose to be rescheduled for the MRI and was not aware that this was not scheduled. He will be calling the office back with further information and questions. [facility] 36on 01-05-2025 36 Left message for the patient to call back. [facility] 36on 01-02-2025 36 Attempted to call again Normal [facility] 36on 01-01-[address] results with Dr. Brice- Attempted to call patient to discuss results. Requested return call. [facility] 36 Called patient no an micki Lima MA [facility] CT ABDOMEN PELVIS WO IV CONT VALERIANOTon 12-31-2024 CT ABDOMEN PELVIS WO IV CONTRAST Patient Name: BRITTA YOUNG : 1955 Exam Date/Time: 12/31/2024 10:18 Procedure: CT ABDOMEN PELVIS WO IV CONTRAST Ordering Provider: LUTZ SAMANTHA Reason For Exam: periumbilical bulge, history of ovarian cancer with umbilicus involvement, evaluate for hernia versus other concern CLINICAL HISTORY: periumbilical bulge, history of ovarian cancer with umbilicus involvement, evaluate for hernia versus other concern COMPARISON: CT of the abdomen and pelvis dated 09/14/20 TECHNIQUE: Unenhanced helical CT images were acquired through the abdomen and pelvis. All CT scans at this facility employ automatic and/or manual dose reduction techniques to keep radiation dose as low as reasonably achievable. Enteric contrast media: Present. FINDINGS: Lower Chest: Right middle and lower lobe centrilobular solid and groundglass nodules. Bowel/Peritoneum: No pneumatosis, pneumoperitoneum, or evidence of bowel obstruction. Left levator ani laxity allowing protrusion of a small portion of the rectum into the ischioanal fossa. Right periumbilical hernia containing a knuckle of nondistended transverse colon. Small fat-containing periumbilical hernia more superiorly. No ascites. Hepatobiliary: Normal hepatic morphology. No extrahepatic bile duct dilation. Gallbladder stones without specific evidence of acute cholecystitis. Pancreas: Chronic parenchymal calcifications which could reflect senescent changes and/or chronic pancreatitis. Lymphatics: No splenomegaly. New 1.1 cm left infrarenal periaortic calcification. Urinary: Bilateral renal atrophy. Bilateral renal cysts of varying density. No hydronephrosis. Nondistended urinary bladder. Reproductive: Status post hysterectomy. Vascular: Atherosclerotic but normal caliber abdominal aorta. Miscellaneous: 1.9 cm right adrenal adenoma. Mild heterotopic ossification along the laparotomy incision and in the right rectus abdominis. Musculoskeletal: Osteopenia. No discrete lytic or blastic lesion. IMPRESSION: Right periumbilical hernia containing transverse colon without evidence of strangulation. Additional small fat-containing umbilical hernia more superiorly. New 1.1 cm left infrarenal periaortic calcification suspicious for a leo metastasis given resection of a presumed calcified left upper quadrant omental metastasis seen in 2020. No recent studies available for comparison. Consider PET/CT. Bilateral renal cysts of varying density. A solid renal lesion is difficult to exclude in this context. Assuming no prior outside imaging, renal protocol contrast-enhanced CT or contrast-enhanced MRI of the abdomen would be recommended. Right middle and lower lobe bronchiolitis. Report Dictated on Electronically Signed By: Jayme Hastings MD Electronically Signed Date/Time: 12/31/2024 4:13 PM EDT Pt sts come for exam for her hernia Sts no current complaints Hx of cervical cancer Normal [facility] CT Abdomen and Pelvis WO con traston 12-31-2024 Right periumbilical hernia containing transverse colon without evidence of strangulation. Additional small fat-containing umbilical hernia more superiorly. New 1.1 cm left infrarenal periaortic calcification suspicious for a leo metastasis given resection of a presumed calcified left upper quadrant omental metastasis seen in 2020. No recent studies available for comparison. Consider PET/CT. Bilateral renal cysts of varying density. A solid renal lesion is difficult to exclude in this context. Assuming no prior outside imaging, renal protocol contrast-enhanced CT or contrast-enhanced MRI of the abdomen would be recommended. Right middle and lower lobe bronchiolitis. Report Dictated on Electronically Signed By: Jayme Hastings MD Electronically Signed Date/Time: 12/31/2024 4:13 PM T [facility] [address] [facility] Patient Name: [facility] 1955 [id number] Exam Date/Time: 12/31/2024 10:18 Procedure: CT ABDOMEN PELVIS WO IV CONTRAST Ordering Provider: LUTZ SAMANTHA Reason For Exam: periumbilical bulge, history of ovarian cancer with umbilicus involvement, evaluate for hernia versus other concern CLINICAL HISTORY: periumbilical bulge, history of ovarian cancer with umbilicus involvement, evaluate for hernia versus other concern COMPARISON: CT of the abdomen and pelvis dated 09/14/20 TECHNIQUE: Unenhanced helical CT images were acquired through the abdomen and pelvis. All CT scans at this facility employ automatic and/or manual dose reduction techniques to keep radiation dose as low as reasonably achievable. Enteric contrast media: Present. FINDINGS: Lower Chest: Right middle and lower lobe centrilobular solid and groundglass nodules. Bowel/Peritoneum: No pneumatosis, pneumoperitoneum, or evidence of bowel obstruction. Left levator ani laxity allowing protrusion of a small portion of the rectum into the ischioanal fossa. Right periumbilical hernia containing a knuckle of nondistended transverse colon. Small fat-containing periumbilical hernia more superiorly. No ascites. Hepatobiliary: Normal hepatic morphology. No extrahepatic bile duct dilation. Gallbladder stones without specific evidence of acute cholecystitis. Pancreas: Chronic parenchymal calcifications which could reflect senescent changes and/or chronic pancreatitis. Lymphatics: No splenomegaly. New 1.1 cm left infrarenal periaortic calcification. Urinary: Bilateral renal atrophy. Bilateral renal cysts of varying density. No hydronephrosis. Nondistended urinary bladder. Reproductive: Status post hysterectomy. Vascular: Atherosclerotic but normal caliber abdominal aorta. Miscellaneous: 1.9 cm right adrenal adenoma. Mild heterotopic ossification along the laparotomy incision and in the right rectus abdominis. Musculoskeletal: Osteopenia. No discrete lytic or blastic lesion. [facility] Jayme Hastings MD - 12/31/2024 Patient Name: BRITTA YOUNG : 1955 Exam Date/Time: 12/31/2024 10:18 Procedure: CT ABDOMEN PELVIS WO IV CONTRAST Ordering Provider: LUTZ SAMANTHA Reason For Exam: periumbilical bulge, history of ovarian cancer with umbilicus involvement, evaluate for hernia versus other concern CLINICAL HISTORY: periumbilical bulge, history of ovarian cancer with umbilicus involvement, evaluate for hernia versus other concern COMPARISON: CT of the abdomen and pelvis dated 09/14/20 TECHNIQUE: Unenhanced helical CT images were acquired through the abdomen and pelvis. All CT scans at this facility employ automatic and/or manual dose reduction techniques to keep radiation dose as low as reasonably achievable. Enteric contrast media: Present. FINDINGS: Lower Chest: Right middle and lower lobe centrilobular solid and groundglass nodules. Bowel/Peritoneum: No pneumatosis, pneumoperitoneum, or evidence of bowel obstruction. Left levator ani laxity allowing protrusion of a small portion of the rectum into the ischioanal fossa. Right periumbilical hernia containing a knuckle of nondistended transverse colon. Small fat-containing periumbilical hernia more superiorly. No ascites. Hepatobiliary: Normal hepatic morphology. No extrahepatic bile duct dilation. Gallbladder stones without specific evidence of acute cholecystitis. Pancreas: Chronic parenchymal calcifications which could reflect senescent changes and/or chronic pancreatitis. Lymphatics: No splenomegaly. New 1.1 cm left infrarenal periaortic calcification. Urinary: Bilateral renal atrophy. Bilateral renal cysts of varying density. No hydronephrosis. Nondistended urinary bladder. Reproductive: Status post hysterectomy. Vascular: Atherosclerotic but normal caliber abdominal aorta. Miscellaneous: 1.9 cm right adrenal adenoma. Mild heterotopic ossification along the laparotomy incision and in the right rectus abdominis. Musculoskeletal: Osteopenia. No discrete lytic or blastic lesion. IMPRESSION: Right periumbilical hernia containing transverse colon without evidence of strangulation. Additional small fat-containing umbilical hernia more superiorly. New 1.1 cm left infrarenal periaortic calcification suspicious for a leo metastasis given resection of a presumed calcified left upper quadrant omental metastasis seen in 2020. No recent studies available for comparison. Consider PET/CT. Bilateral renal cysts of varying density. A solid renal lesion is difficult to exclude in this context. Assuming no prior outside imaging, renal protocol contrast-enhanced CT or contrast-enhanced MRI of the abdomen would be recommended. Right middle and lower lobe bronchiolitis. Report Dictated on Electronically Signed By: Jayme Hastings MD Electronically Signed Date/Time: 12/31/2024 4:13 PM EDT [facility] Radiology Study observation (narrative) [facility] CT Abdomen and Pelvis WO con trastOrdered By: Jayme Hastings on 12-31-2024 [employer] Work Phone: 36on 12-30-2024 36 Spoke to pt's aide keren desai asked if she would like me to help with scheduling pt's CT and she said that she would call due to her having other clients and finding a day and time that would work [facility] 36on 12-29-2024 36 Name of caller: Bandar casper Contact phone number: [phone] Relationship to Patient: [facility] Provider: Dr. Blackman Practice: Neuroscience Chief Complaint/Reason for Call: Hailey stated that the patient went for an MRI, but she could not stay still, so they did not get any good images. They advised she would have to call the provider to have it rescheduled. Hailey stated that they did not know the patient had a standing order for Ativan to take prior to MRIs, so she will make sure that she has it prior to the next one. Please call Hailey with new date and time of MRI. Best time of day caller can be reached: any Patient advised that office/PCP has 24-48 business hours to return their call: Yes Normal [facility] Cancer Antigen 125on 025 CA 125 13.2 U/mL Normal 0.0-38.1 [facility] Comment on above: Result Comment: [employer] [employer] Electrochemiluminescence Immunoassay(ECLIA)Values obtained with different assay methods or kits cannotbe used interchangeably. Results cannot be interpreted asabsolute evidence of the presence or absence of malignantdisease.Performed at: [address] Director: Joe Olivier PhD, Phone: [phone] Performed By: #### L 500.7063, L3100.5000, L100.0100 ####[facility] [address] [place], [address] Absolute lymphocyte countOrd ered By: Berna Pierson on 12-25-2024 Lymphocytes Auto (Unsp spec) [#/Vol] 1.39 10*3/uL 0.83-4.51 [facility] Absolute neutrophil countOrd ered By: Berna Dangelo on 12-25-2024 Neutrophils (Bld) [#/Vol] 5.0 10*3/uL 2.0-7.7 [facility] Anion gap in Serum or Plasma Ordered By: Berna Dangelo on 12-25-2024 Anion gap [Moles/Vol] 14 mmol/L 5-15 [facility] Automated lymphocyte count a s percentage of total leukocytesOrdered By: Berna Pierson on 12-25-2024 Lymphocytes/100 WBC Auto (Unsp spec) 18.6 % Low 19-41 [facility] BUN/creatinine ratioOrdered By: Berna Pierson on 12-25-2024 Urea nitrogen/Creatinine [Mass ratio] 15.7 mg/mg 10-20 [facility] Basophil percentageOrdered B y: Berna Pierson on 12-25-2024 Basophils/100 WBC (Bld) 0.3 % 0-1 [facility] Bilirubin, totalOrdered By: Berna Pierson on 12-25-2024 Bilirubin [Mass/Vol] 0.31 mg/dL 0.00-1.30 [facility] CBC W/Diff, Automatedon 11-28 ATYPICAL LYMPH 1+ Normal [facility] Comment on above: Performed By: #### L 500.4050, L3100.5000, L100.0100 ####[facility] [address] [place], [place], [address] PLT EST A Normal ADEQ [facility] Comment on above: Performed By: #### L 500.4050, L3100.5000, L100.0100 ####[facility] [address] [place], [address] Cancer antigen 125 (CA-125) measurementOrdered By: Berna Pierson on 12-25-2024 Cancer antigen 125 (CA-125) measurement 13.2 U/mL 0.0-38.1 [facility] Comment on above: [facility] [employer] El ectrochemiluminescence Immunoassay(ECLIA)Values obtained with different assay methods or kits cannotbe used interchangeably. Results cannot be interpreted asabsolute evidence of the presence or absence of malignantdisease.Performed at: - [address] [id number] Director: Joe Olivier PhD, Phone: [phone] Carbon dioxide, total [Moles /volume] in Central venous bloodOrdered By: Berna Pierson on 12-25-2024 CO2 [Moles/Vol] 22.4 mmol/L 21.0-32.0 [facility] Chloride assayOrdered By: Ramírez Pierson on 12-25-2024 Chloride [Moles/Vol] 104 mmol/L 98-108 [facility] Comprehensive Metabolic Prof ilon 12-25-2024 Albumin [Mass/Vol] 4.2 g/dL Normal 3.4-4.8 [facility] Comment on above: Performed By: #### L 500.4050, L3100.5000, L100.0100 ####[facility] [address] [place], [address] Albumin/Globulin [Mass ratio] 1.2 {ratio} Normal 0.9-2.4 [facility] Comment on above: Performed By: #### L 500.4050, L3100.5000, L100.0100 ####[facility] [address] [place], [address] ALK PHOS 101 U/L Normal 35-104 [facility] Comment on above: Performed By: #### L 500.4050, L3100.5000, L100.0100 ####[facility] [address] [place], [address] ALT [Catalytic activity/Vol] 9 U/L Normal <=34 [facility] Comment on above: Performed By: #### L 500.4050, L3100.5000, L100.0100 ####[facility] [address] [place], [address] AST [Catalytic activity/Vol] 19 U/L Normal <=31 [facility] Comment on above: Performed By: #### L 500.4050, L3100.5000, L100.0100 ####[facility] [address] [place], [address] Bilirubin [Mass/Vol] 0.31 mg/dL Normal 0.00-1.30 [facility] Comment on above: Performed By: #### L 500.4050, L3100.5000, L100.0100 ####[facility] [address] [place], [address] BUN/CRE 15.7 RATIO Normal 10-20 [facility] Comment on above: Performed By: #### L 500.4050, L3100.5000, L100.0100 ####[facility] [address] [place], [address] Calcium [Mass/Vol] 9.8 mg/dL Normal 7.6-11.0 [facility] Comment on above: Performed By: #### L 500.4050, L3100.5000, L100.0100 ####[facility] [address] [place], [address] Chloride [Moles/Vol] 104 mmol/L Normal 98-108 [facility] Comment on above: Performed By: #### L 500.4050, L3100.5000, L100.0100 ####[facility] [address] [place], [address] CO2 [Moles/Vol] 22.4 mmol/L Normal 21.0-32.0 [facility] Comment on above: Performed By: #### L 500.4050, L3100.5000, L100.0100 ####[facility] [address] [place], [address] Creatinine [Mass/Vol] 1.66 mg/dL High 0.70-1.20 [facility] Comment on above: Performed By: #### L 500.4050, L3100.5000, L100.0100 ####[facility] [address] [place], [address] ECRCL 43.24 ml/min Low 50-250 [facility] Comment on above: Performed By: #### L 500.4050, L3100.5000, L100.0100 ####[facility] [address] [place], [address] GAP 14 Normal 5-15 [facility] Comment on above: Performed By: #### L 500.4050, L3100.5000, L100.0100 ####[facility] [address] [place], [address] GFR/1.73 sq M.predicted among non-blacks MDRD (S/P/Bld) [Vol rate/Area] 33 mL/min/{1.73_m2} Low >60 [facility] Comment on above: Result Comment: mL/m in/1.73m2 CKD-EPI Creatinine Equation (2020) Performed By: #### L 500.4050, L3100.5000, L100.0100 ####[facility] [address] [place], [address] Globulin (S) [Mass/Vol] 3.4 g/dL Normal 2.2-4.2 [facility] Comment on above: Performed By: #### L 500.4050, L3100.5000, L100.0100 ####[facility] [address] [place], [address] Glucose [Mass/Vol] 118 mg/dL High 70-99 [facility] Comment on above: Performed By: #### L 500.4050, L3100.5000, L100.0100 ####[facility] [address] [place], [address] Potassium [Moles/Vol] 3.8 mmol/L Normal 3.3-5.1 [facility] Comment on above: Performed By: #### L 500.4050, L3100.5000, L100.0100 ####[facility] [address] [place], [address] Sodium [Moles/Vol] 140 mmol/L Normal 133-145 [facility] Comment on above: Performed By: #### L 500.4050, L3100.5000, L100.0100 ####[facility] [address] [place], [address] T PROT 7.6 g/dL Normal 5.9-8.4 [facility] Comment on above: Performed By: #### L 500.4050, L3100.5000, L100.0100 ####[facility] [address] [place], [address] Urea nitrogen [Mass/Vol] 26 mg/dL High 4-19 [facility] Comment on above: Performed By: #### L 500.4050, L3100.5000, L100.0100 ####[facility] [address] [place], [address] Eosinophil percentageOrdered By: Berna Pierson on 12-25-2024 Eosinophils/100 WBC (Bld) 5.8 % High 0-5 [facility] Erythrocyte distribution wid th ratioOrdered By: Berna Pierson on 12-25-2024 Erythrocyte distribution width (RBC) [Ratio] 15.1 % High 11.6-14.6 [facility] Erythrocyte distribution wid th standard deviationOrdered By: Bernakeren Pierson on 12-25-2024 Erythrocyte distribution width (RBC) [Ratio] 55.1 fl High 35.1-43.9 [facility] Ferritinon 12-25-2024 Ferritin [Mass/Vol] 1476 ng/mL High 22-378 [facility] Comment on above: Order Comment: ADD O N PLEASE Performed By: #### L 504.2610, L503.6550 ####[facility] [address] [place], [address] Glomerular filtration rate ( GFR) estimation/1.73 sq m using serum, plasma, or whole bOrdered By: Berna Pierson on 12-25-2024 GFR/1.73 sq M.predicted among non-blacks MDRD (S/P/Bld) [Vol rate/Area] 33 mL/min/{1.73_m2} Low >60 [facility] Comment on above: mL/min/1.73m2 CKD-EP I Creatinine Equation (2020) Hematocrit Auto (Bld) [Volum e fraction]Ordered By: Berna Pierson on 12-25-2024 Hematocrit (Bld) [Volume fraction] 31.0 % Low 37-47 [facility] Hemoglobin measurementOrdere d By: Berna Pierson on 12-25-2024 Hemoglobin (Bld) [Mass/Vol] 9.9 g/dL Low 12.0-15.0 [facility] Immature granulocytes/100 WB C Auto (Bld)Ordered By: Berna Pierson on 12-25-2024 Immature granulocytes/100 WBC (Bld) 0.300 % 0.0-0.9 [facility] Comment on above: IG% - Immature Granu locytes (promyelocytes, myelocytes and metamyelocytes) > 1% indicates that a LEFT SHIFT is Present. LDHon 12-25-2024 LDH 196 U/L Normal 84-246 [facility] Comment on above: Order Comment: ADD O N PLEASE1 Performed By: #### L 504.2610, L503.6550 ####[facility] [address] [place], [address] Laboratory - Chemistry and C hemistry - challengeOrdered By: Berna Pierson on 12-25-2024 AST [Catalytic activity/Vol] 19 U/L <32 [facility] Lactate dehydrogenase (LDH) measurementOrdered By: David Corral on 12-25-2024 LDH [Catalytic activity/Vol] 196 U/L 84-246 [facility] MCV (mean corpuscular volume ) determinationOrdered By: Berna Pierson on 12-25-2024 MCV (RBC) [Entitic vol] 99.4 fL High 81-99 [facility] Mean corpuscular hemoglobin (MCH) determinationOrdered By: Berna Pierson on 12-25-2024 MCH (RBC) [Entitic mass] 31.7 pg 27.0-32.0 [facility] Mean corpuscular hemoglobin concentration (MCHC) determinationOrdered By: Berna Pierson on 12-25-2024 MCHC (RBC) [Mass/Vol] 31.9 g/dL Low 32-36 [facility] Mean platelet volume determi nationOrdered By: Berna Pierson on 12-25-2024 Platelet mean volume (Bld) [Entitic vol] 11.8 fL 6.2-12.0 [facility] Monocyte percentageOrdered B y: Berna Pierson on 12-25-2024 Monocytes/100 WBC (Bld) 7.6 % 0-10 [facility] Neutrophil percentageOrdered By: Berna Pierson on 12-25-2024 Neutrophils/100 WBC (Bld) 67.4 % 47-70 [facility] No Panel InformationOrdered By: Berna Pierson on 12-25-2024 19 U/L <32 [facility] Nucleated red blood cell per centageOrdered By: Berna Pierson on 12-25-2024 Nucleated RBC/100 WBC (Bld) [Ratio] 0 % 0-5 [facility] Oncology Visit Reporton 11-28 Oncology Visit Report Normal [facility] Platelet countOrdered By: Ramírez Pierson on 12-25-2024 Platelets (Bld) [#/Vol] 195 10*3/uL 150-450 [facility] Platelet estimateOrdered By: Berna Pierson on 12-25-2024 Platelets LM Ql (Bld) A ADEQ [facility] Potassium measurement (mass/ volume)Ordered By: Berna Pierson on 12-25-2024 Potassium (Unsp spec) [Mass/Vol] 3.8 mmol/L 3.3-5.1 [facility] RBC Auto (Bld) [#/Vol]Ordere d By: Berna Pierson on 12-25-2024 RBC (Bld) [#/Vol] 3.12 10*6/uL Low 4.2-5.4 [facility] Serum creatinine measurement (mass/volume)Ordered By: Berna Pierson on 12-25-2024 Creatinine [Mass/Vol] 1.66 mg/dL High 0.70-1.20 [facility] Serum globulin measurementOr dered By: Berna Pierson on 12-25-2024 Globulin (S) [Mass/Vol] 3.4 g/dL 2.2-4.2 [facility] Serum glucose measurement (m ass/volume)Ordered By: Berna Pierson on 12-25-2024 Glucose [Mass/Vol] 118 mg/dL High 70-99 [facility] Serum or plasma alanine garcia otransferase (ALT) measurementOrdered By: Berna Pierson on 12-25-2024 ALT [Catalytic activity/Vol] 9 U/L <35 [facility] Serum or plasma albumin addie urement (mass/volume)Ordered By: Berna Pierson on 12-25-2024 Albumin [Mass/Vol] 4.2 g/dL 3.4-4.8 [facility] Serum or plasma albumin/glob ulin mass ratioOrdered By: Berna Pierson on 12-25-2024 Albumin/Globulin [Mass ratio] 1.2 {ratio} 0.9-2.4 [facility] Serum or plasma alkaline jabier sphatase measurementOrdered By: Berna Pierson on 12-25-2024 ALP [Catalytic activity/Vol] 101 U/L 35-104 [facility] Serum or plasma calcium addie urement (mass/volume)Ordered By: Berna Pierson on 12-25-2024 Calcium [Mass/Vol] 9.8 mg/dL 7.6-11.0 [facility] Serum or plasma ferritin vanita surement (mass/volume)Ordered By: David Corral on 12-25-2024 Ferritin [Mass/Vol] 1476 ng/mL High 22-378 [facility] Serum or plasma urea nitroge n measurement (mass/volume)Ordered By: Berna Pierson on 12-25-2024 Urea nitrogen [Mass/Vol] 26 mg/dL High 4-19 [facility] Sodium levelOrdered By: Berna Pierson on 12-25-2024 Sodium [Moles/Vol] 140 mmol/L 133-145 [facility] Total proteinOrdered By: Jessica Pierson on 12-25-2024 Protein [Mass/Vol] 7.6 g/dL 5.9-8.4 [facility] Vitamin B12on 12-25-2024 Cobalamin (Vitamin B12) [Mass/Vol] 341 pg/mL Normal 180-914 [facility] Comment on above: Order Comment: ADD O N PLEASE Performed By: #### L 503.0106 ####[facility] [address] [place], [address] Vitamin B12 ser/plasOrdered By: David Corral on 12-25-2024 Cobalamin (Vitamin B12) [Mass/Vol] 341 pg/mL 180-914 [facility] White blood cell (WBC) count Ordered By: Berna Pierson on 12-25-2024 WBC (Bld) [#/Vol] 7.5 10*3/uL 4.4-11.0 [facility] Office Visiton 12-23-2024 Follow-up visit [id number] [facility] 1955 F Date Provider Department Center 12/23/2024 [id number] [facility] ALS None Family History Problem Relation Age of Onset Diabetes Mother Diabetes Paternal Grandmother Alcohol abuse Father Stroke Maternal Grandfather Breast cancer Mother Family Status - Relation Status Age at Mother Alive Paternal Grandmother Father Alive Maternal Grandfather Level of Service:12596 [place] OFFICE/OUTPATIENT NEW MODERATE MDM 45 MINUTES Reason for Visit and Comments: New Patient [542] - 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 female who presents with concern of periumbilical bulge. She states a few weeks ago she noticed a bulge just right of her umbilicus which is since softened. She had concern for hernia so was referred to us for surgical evaluation. At this time, she denies any pain, nausea, vomiting, changes in bowels and is not interested in intervention if it is not necessary. 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 PSH also significant for tubal ligation. Former smoker. Notes reviewed: - Cara Fernandes [facility], 11/17/24 Data reviewed: - CT abd/pel, 09/15/20: personally interpreted, pSBO, scattered air bubbles in retroperitoneal sot tissues of pelvis, small amount of perihepatic ascites, large well circumscribed rim calcified LUQ mass, multiple b/l renal cysts, cholelithiasis, small pericardial effusion, sm HH PMHx: Medical History[1] PSHx: Surgical History[2] PFMHx: Family History[3] ALL: Allergies[4] MEDS: Current Medications[5] SOCIAL Hx: Social History Socioeconomic History Marital status: Single Spouse name: Not on file Number of children: Not on file Years of education: Not on file Highest education level: Not on file Occupational History Not on file Tobacco Use Smoking status: Former Smokeless tobacco: Never Substance and Sexual Activity Alcohol use: Not Currently Drug use: Never Sexual activity: Not on file Other Topics Concern Not on file Social History Narrative Not on file Social Drivers of Health Financial Resource Strain: Not on file Food Insecurity: Not on file Transportation Needs: Not on file Physical Activity: Not on file Stress: Not on file Social Connections: Not on file Intimate Partner Violence: Not on file Housing Stability: Not on file ROS: General: negative for - chills, fatigue, fever or malaise Gastrointestinal: negative for - change in bowel habits, hemoptysis, hematemesis, hematochezia, dysphagia, nausea, vomiting, diarrhea, constipation, weight loss DIAGNOSTIC EVALUATION: as described above Physical Examination: BP (!) 185/99 (BP Location: Left arm, Patient Position: Sitting, BP Cuff Size: Adult) Pulse 70 Temp 36.3 ?C (97.3 ?F) (Temporal) Ht 5' 6 (1.676 m) Wt 264 lb 6.4 oz (120 kg) SpO2 98% BMI 42.68 kg/m? She stands Height: 5' 6 (167.6 cm) tall with a weight of Weight: 264 lb 6.4 oz (120 kg), resulting in a BMI of Body mass index is 42.68 kg/m?. General: The patient is awake, alert, and oriented, and is in no apparent distress; normal affect Respiratory: Normal effort, no gross abnormal breath sounds Abdomen: Appropriate girth, non-distended, well healed laparotomy scars, soft, no masses or hepatosplenomegaly Hernia: No obvious hernias on exam Extremities: Presents in wheelchair, no obvious deformities Skin: Warm, dry, intact; no obvious lesions or discoloration Assessment/Plan Britta was seen today for new patient. Diagnoses and all orders for this visit: Abdominal wall bulge (Primary) - CT abdomen pelvis wo IV contrast; Future History of laparotomy - CT abdomen pelvis wo IV contrast; Future History of ovarian cancer - CT abdomen pelvis wo IV contrast; Future Ms. Young is a 69-year-old female presenting for evaluation of periumbilical bulge with history of laparotomy for ovarian cancer debulking in 2020. No obvious hernias or masses were palpable on exam. With her history of ovarian cancer with involvement at the umbilicus on path, as well as large laparotomy incision, we do recommend further evaluation with CT. Order placed. Will call with results. If benign, ok to hold off of surgery unless symptoms worsen. I personally performed the evaluation and management of Britta Young in the development of a treatment plan for this patient. I personally interviewed the patient and performed an individual physical examination. In addition, I discussed the patient's condition and treatment options with them. I have also reviewed and agree with the past medical, family and social history unless otherwise noted. All of the patient's questions were answered. I discussed/counseled the patient regarding the risks and benefits of surgery as well as the preoperative and postoperative care plan for this patient.The patient was seen and examined independently and relevant data reviewed by myself. A full chart review was performed. Patient Care Team: Katie Velarde MD as PCP - General se [1] Past Medical History: Diagnosis Date Asthma Cancer (CMS/HCC) (HCC) GERD (gastroesophageal reflux disease) History of blood transfusion Hy (more content not included)... [facility] Progress Note We want to inform yo u that your patient's blood pressure was noted to be elevated in our office today. We thank you for trusting us with your patient's health. Last BP: BP Readings from Last 3 Encounters: 12/23/24 (!) 193/105 11/20/24 (!) 144/78 11/19/24 135/78 [facility] 12-04-2024 36 Spoke to Deepa and pt is scheduled on 12/23/24 due to pt other appt conflict [facility] 12-03-2024 36 Isabelle from [facility] would like to know when patient is going to be scheduled. She can be reached at [phone] [facility] 11-24-2024 36 We have been unable to reach your patient to schedule their testing. Test Name: dewayne/emg 1st Attempt: 11/20 2nd Attempt: 11/21 3rd attempt; 11/24 [facility] 36on 11-21-2024 36 Lvm on number provid ed on form to schedule [phone] to call back to schedule blocker heated metal forms appt in [facility] Office Visiton 11-20-2024 Follow-up visit [id number] Dana [place] 1955 F Date Provider Department Center 11/20/2024 [facility] NEURO F None Family History Problem Relation Age of Onset Diabetes Mother Diabetes Paternal Grandmother Alcohol abuse Father Stroke Maternal Grandfather Breast cancer Mother Family Status - Relation Status Age at Mother Alive Paternal Grandmother Father Alive Maternal Grandfather Level of Service:01907 MT OFFICE/OUTPATIENT NEW LOW MDM 30 MINUTES Reason for Visit and Comments: New Patient [542] - Leg weakness x 2 months. [facility] Progress Noteon 11-20-2024 Progress Note Department of Neurological Sciences Impression: Diagnosis Plan 1. Weakness MR cervical spine wo contrast Nerve conduction test with EMG Presents with upper and lower extremity weakness and sensory loss. Reflexes are brisk in the knees with adductor spread. Reports transient urinary retention. Plan: MRI cervical spine EMG Orders Placed This Encounter Procedures MR cervical spine wo contrast Standing Status: Future Standing Expiration Date: 11/20/2025 Order Specific Question: What is the patient's sedation requirement? Answer: No Sedation Order Specific Question: Does the patient have an implantable device (pacemaker, defibrillator, stimulator, etc.)? Answer: No Nerve conduction test with EMG Standing Status: Future Standing Expiration Date: 11/20/2025 Scheduling Instructions: Right upper and lower CHIEF COMPLAINT: Chief Complaint Patient presents with New Patient Leg weakness x 2 months. HISTORY OF PRESENT ILLNESS: The patient is a 68 y.o. female with past medical history of asthma, hypertension, hyperlipidemia, sleep apnea who presents with weakness and inability to walk. Symptoms began 3 to 4 months ago with painless weakness in the right hand and difficulty standing in the kitchen. She had difficulty holding up a coffee pot. 2 months later she developed increasing lower extremity weakness and lost her ability to walk. Briefly admitted for weakness and urinary retention. Ambrose was placed then discontinued without recurrence of urinary retention. Was placed in nursing facility. Has great difficulty walking with a rollator. Reports sensation of tightness in the balls of her feet. Affirms muscle spasms in right lower extremity. Denies significant neck and back pain. Reports bilateral knee pain. Denies nic dexterity loss. No prior MRI or EMG. Past Medical History: Past Medical History: Diagnosis Date Asthma Cancer (CMS/HCC) (HCC) GERD (gastroesophageal reflux disease) History of blood transfusion Hyperlipidemia Hypertension Obesity Renal insufficiency Sleep apnea Past Surgical History: Past Surgical History: Procedure Laterality Date COLONOSCOPY ENDOMETRIAL ABLATION 2003 OTHER SURGICAL HISTORY 09/17/2020 SMA aneurysm ligation, application of Prevena wound vac TONSILLECTOMY (HISTORICAL) TOTAL ABDOMINAL HYSTERECTOMY W/ BILATERAL SALPINGOOPHORECTOMY 09/10/2020 NUSRAT/BSO/omentectomy snd debulking TUBAL LIGATION 1994 Medications: Current Outpatient Medications: albuterol (Ventolin HFA) 108 (90 Base) MCG/ACT inhaler, Inhale 2 puffs every 4 hours as needed., Disp: , Rfl: amLODIPine (Norvasc) 10 MG tablet, , Disp: , Rfl: buPROPion SR (Wellbutrin SR) 150 MG 12 hr tablet, Take 150 mg by mouth 2 times daily., Disp: , Rfl: fluticasone (Flonase) 50 MCG/ACT nasal spray, Administer 1 spray into each nostril daily., Disp: , Rfl: hydrALAZINE (Apresoline) 25 MG tablet, , Disp: , Rfl: hydrALAZINE (Apresoline) 50 MG tablet, , Disp: , Rfl: iron polysaccharides (Nu-Iron,Niferex) 150 MG capsule, Take 150 mg by mouth daily., Disp: , Rfl: metoprolol tartrate (Lopressor) 100 MG tablet, every 12 hours., Disp: , Rfl: NIFEdipine CC (Adalat CC) 90 MG 24 hr tablet, Every 24 hours., Disp: , Rfl: Niraparib Tosylate (Zejula) 200 MG tablet, Take by mouth., Disp: , Rfl: ondansetron (Zofran) 4 MG/5ML solution, Take 4 mg by mouth Once., Disp: , Rfl: pantoprazole (ProtoNix) 40 MG EC tablet, , Disp: , Rfl: POTASSIUM CHLORIDE ER PO, Take 20 mEq by mouth., Disp: , Rfl: traMADol (Ultram) 50 MG tablet, Take by mouth., Disp: , Rfl: VITAMIN D PO, Take by mouth., Disp: , Rfl: acetaminophen (Tylenol) 500 MG tablet, Take by mouth., Disp: , Rfl: NIFEdipine CC (Adalat CC) 90 MG 24 hr tablet, Take 90 mg by mouth every morning (before breakfast). Do not crush, chew, or split., Disp: , Rfl: Allergies: Iodine, Povidone-iodine, and Seasonal Social History: Social History Socioeconomic History Marital status: Single Spouse name: Not on file Number of children: Not on file Years of education: Not on file Highest education level: Not on file Occupational History Not on file Tobacco Use Smoking status: Former Smokeless tobacco: Never Substance and Sexual Activity Alcohol use: Not Currently Drug use: Never Sexual activity: Not on file Other Topics Concern Not on file Social History Narrative Not on file Social Drivers of Health Financial Resource Strain: Not on file Food Insecurity: Not on file Transportation Needs: Not on file Physical Activity: Not on file Stress: Not on file Social Connections: Not on file Intimate Partner Violence: Not on file Housing Stability: Not on file Family History: Family History Problem Relation Name Age of Onset Diabetes Mother Diabetes Paternal Grandmother Alcohol abuse Father Stroke Maternal Grandfather Breast cancer Mother REVIEW OF SYSTEMS: Positive for imbalance, numbness, urinary (more content not included)... Normal [facility] Office Visiton 11-19-2024 Follow-up visit [id number] Dana [facility] 1955 F Date Provider Department Center 11/19/2024 [id number] PAN [facility] NROSURG None Family History Problem Relation Age of Onset Diabetes Mother Diabetes Paternal Grandmother Alcohol abuse Father Stroke Maternal Grandfather Breast cancer Mother Family Status - Relation Status Age at Mother Alive Paternal Grandmother Father Alive Maternal Grandfather Level of Service:49699 MT OFFICE/OUTPATIENT NEW MODERATE MDM 45 MINUTES Reason for Visit and Comments: New Patient [542] - follow up from hospital stay pt having a hard time walking Normal [facility] Progress Noteon 11-19-2024 Progress Note NEUROSURGERY CONSULT NOTE Patient Name: Britta Young Patient : 1955 PCP: Katie Velarde MD History of Present Ilness: 68 y.o. presents for hospital follow-up for generalized weakness and inability to ambulate. Patient was seen in outside hospital after her son found her down and unable to ambulate. During her hospitalization they state that she underwent imaging of her spine with no significant findings. Unfortunately we do not have the reports or the imaging for review today. She states that she has swelling in her lower extremities as well as bilateral knee pain. This is new, she states she has never talked to a doctor before about her lower extremity edema. She states that it is difficult for her to ambulate due to edema knee pain and feeling muscle weakness. She denies any low back pain mid back pain or neck pain. She denies any numbness or tingling or changes in sensation in either the upper or lower extremities. She is dependent on a wheelchair at this point. She does not report any difficulty with her arms and fine finger movements or coordination with her arms. Her son feels that she is improving with her strength and ambulation through physical therapy. Today they believed they were seeing a neurologist, they were wondering why they were set up to see neurosurgery. Chief Complaint Patient presents with New Patient follow up from hospital stay pt having a hard time walking Conservative Treatments: Physical Therapy: She is currently in a rehab facility undergoing physical therapy. Her son states that her strength has greatly improved since being in the facility. Past Medical History: Past Medical History: Diagnosis Date Asthma Cancer (CMS/HCC) (HCC) GERD (gastroesophageal reflux disease) History of blood transfusion Hyperlipidemia Hypertension Obesity Renal insufficiency Sleep apnea Past Surgical History: Past Surgical History: Procedure Laterality Date COLONOSCOPY ENDOMETRIAL ABLATION 2003 OTHER SURGICAL HISTORY 09/17/2020 SMA aneurysm ligation, application of Prevena wound vac TONSILLECTOMY (HISTORICAL) TOTAL ABDOMINAL HYSTERECTOMY W/ BILATERAL SALPINGOOPHORECTOMY 09/10/2020 NUSRAT/BSO/omentectomy snd debulking TUBAL LIGATION 1994 Home Medications: Prior to Admission medications Medication Sig Start Date End Date Taking? Authorizing Provider acetaminophen (Tylenol) 500 MG tablet Take by mouth. Yes Historical Provider, albuterol (Ventolin HFA) 108 (90 Base) MCG/ACT inhaler Inhale 2 puffs every 4 hours as needed. Yes Historical Provider, amLODIPine (Norvasc) 10 MG tablet 11/10/24 Yes Historical Provider, buPROPion SR (Wellbutrin SR) 150 MG 12 hr tablet Take 150 mg by mouth 2 times daily. Yes Historical Provider, fluticasone (Flonase) 50 MCG/ACT nasal spray Administer 1 spray into each nostril daily. Yes Historical Provider, hydrALAZINE (Apresoline) 25 MG tablet 11/12/24 Yes Historical Provider, hydrALAZINE (Apresoline) 50 MG tablet 11/12/24 Yes Historical Provider, iron polysaccharides (Nu-Iron,Niferex) 150 MG capsule Take 150 mg by mouth daily. Yes Historical Provider, metoprolol tartrate (Lopressor) 100 MG tablet every 12 hours. Yes Historical Provider, NIFEdipine CC (Adalat CC) 90 MG 24 hr tablet Every 24 hours. Yes Historical Provider, NIFEdipine CC (Adalat CC) 90 MG 24 hr tablet Take 90 mg by mouth every morning (before breakfast). Do not crush, chew, or split. Yes Historical Provider, Niraparib Tosylate (Zejula) 200 MG tablet Take by mouth. Yes Historical Provider, ondansetron (Zofran) 4 MG/5ML solution Take 4 mg by mouth Once. Yes Historical Provider, pantoprazole (ProtoNix) 40 MG EC tablet 10/06/24 Yes Historical Provider, POTASSIUM CHLORIDE ER PO Take 20 mEq by mouth. Yes Historical Provider, traMADol (Ultram) 50 MG tablet Take by mouth. Yes Historical Provider, VITAMIN D PO Take by mouth. Yes Historical Provider, Allergies: Iodine, Povidone-iodine, and Seasonal Social History: TOBACCO: reports that she has quit smoking. She has never used smokeless tobacco. ETOH: reports that she does not currently use alcohol. RECREATIONAL DRUG USE: Social History Substance and Sexual Activity Drug Use Never Family History: Family History Problem Relation Name Age of Onset Diabetes Mother Diabetes Paternal Grandmother Alcohol abuse Father Stroke Maternal Grandfather Breast cancer Mother Review of Systems Constitutional: Negative. HENT: Negative. Eyes: Negative. Respiratory: Negative. Cardiovascular: Negative. Gastrointestinal: Negative. Endocrine: Negative. Genitourinary: Negative. Musculoskeletal: Negative. Skin: Negative. Neurological: Positive for weakness. Psychiatric/Behavioral: Negative. Physical Examination: Vitals: 11/19/24 1032 BP: 135/78 Pulse: 75 Physical Exam Constitutional: Appearance: Nor (more content not included)... Normal [facility] 36on 10-27-2024 36 Name of Caller: Bandar casper Contact Reason for Appointment: Hailey is requesting an appointment for pt. Please call to schedule Office Name: Neurosurgery [facility] Basic Metabolic Profile (BMP )on 10-01-2024 BUN Normal 4-19 [facility] Comment on above: Result Comment: Canc elled via OM: Order cancelled - Patient discharged Performed By: #### L 500.2500, L100.0100 ####[facility] [address] [place], [address] BUN/CRE Normal 10-20 [facility] Comment on above: Result Comment: Canc elled via OM: Order cancelled - Patient discharged Performed By: #### L 500.2500, L100.0100 ####[facility] [address] [place], [address] Calcium Normal 7.6-11.0 [facility] Comment on above: Result Comment: Canc elled via OM: Order cancelled - Patient discharged Performed By: #### L 500.2500, L100.0100 ####[facility] [address] [place], [address] CL Normal 98-108 [facility] Comment on above: Result Comment: Canc elled via OM: Order cancelled - Patient discharged Performed By: #### L 500.2500, L100.0100 ####[facility] [address] [place], [address] CO2 Normal 21.0-32.0 [facility] Comment on above: Result Comment: Canc elled via OM: Order cancelled - Patient discharged Performed By: #### L 500.2500, L100.0100 ####[facility] [address] [place], [address] CREAT,SERUM Normal 0.70-1.20 [facility] Comment on above: Result Comment: Canc elled via OM: Order cancelled - Patient discharged Performed By: #### L 500.2500, L100.0100 ####[facility] [address] [place], [address] eGFR Normal >60 [facility] Comment on above: Result Comment: Canc elled via OM: Order cancelled - Patient discharged Performed By: #### L 500.2500, L100.0100 ####[facility] [address] [place], [address] GAP Normal 5-15 [facility] Comment on above: Result Comment: Canc elled via OM: Order cancelled - Patient discharged Performed By: #### L 500.2500, L100.0100 ####[facility] [address] [place], [address] GLU Normal 70-99 [facility] Comment on above: Result Comment: Canc elled via OM: Order cancelled - Patient discharged Performed By: #### L 500.2500, L100.0100 ####[facility] [address] [place], [address] Potassium Normal 3.3-5.1 [facility] Comment on above: Result Comment: Canc elled via OM: Order cancelled - Patient discharged Performed By: #### L 500.2500, L100.0100 ####[facility] [address] [place], [address] Basic Metabolic Profile (BMP) Normal 133-145 [facility] Comment on above: Result Comment: Canc elled via OM: Order cancelled - Patient discharged Performed By: #### L 500.2500, L100.0100 ####[facility] [address] [place], [address] CBC W/Diff, Automatedon 03-0 5-2024 Absolute Neut Normal 2.0-7.7 [facility] Comment on above: Result Comment: Canc elled via OM: Order cancelled - Patient discharged Performed By: #### L 500.2500, L100.0100 ####[facility] [address] [place], [address] HCT Normal 37-47 [facility] Comment on above: Result Comment: Canc elled via OM: Order cancelled - Patient discharged Performed By: #### L 500.2500, L100.0100 ####[facility] [address] [place], [address] HGB Normal 12.0-15.0 [facility] Comment on above: Result Comment: Canc elled via OM: Order cancelled - Patient discharged Performed By: #### L 500.2500, L100.0100 ####[facility] [address] [place], [address] MCH Normal 27.0-32.0 [facility] Comment on above: Result Comment: Canc elled via OM: Order cancelled - Patient discharged Performed By: #### L 500.2500, L100.0100 ####[facility] [address] [place], [address] MCHC Normal 32-36 [facility] Comment on above: Result Comment: Canc elled via OM: Order cancelled - Patient discharged Performed By: #### L 500.2500, L100.0100 ####[facility] [address] [place], [address] MCV Normal 81-99 [facility] Comment on above: Result Comment: Canc elled via OM: Order cancelled - Patient discharged Performed By: #### L 500.2500, L100.0100 ####[facility] [address] [place], [address] NEUT% Normal 47-70 [facility] Comment on above: Result Comment: Canc elled via OM: Order cancelled - Patient discharged Performed By: #### L 500.2500, L100.0100 ####[facility] [address] [place], [address] PLT Normal 150-450 [facility] Comment on above: Result Comment: Canc elled via OM: Order cancelled - Patient discharged Performed By: #### L 500.2500, L100.0100 ####[facility] [address] [place], [address] RBC Normal 4.2-5.4 [facility] Comment on above: Result Comment: Canc elled via OM: Order cancelled - Patient discharged Performed By: #### L 500.2500, L100.0100 ####[facility] [address] [place], [address] RDW CV Normal 11.6-14.6 [facility] Comment on above: Result Comment: Canc elled via OM: Order cancelled - Patient discharged Performed By: #### L 500.2500, L100.0100 ####[facility] [address] [place], [address] RDW SD Normal 35.1-43.9 [facility] Comment on above: Result Comment: Canc elled via OM: Order cancelled - Patient discharged Performed By: #### L 500.2500, L100.0100 ####[facility] [address] [place], [address] WBC Normal 4.4-11.0 [facility] Comment on above: Result Comment: Canc elled via OM: Order cancelled - Patient discharged Performed By: #### L 500.2500, L100.0100 ####[facility] [address] [place], [address] Absolute lymphocyte countOrd ered By: Jose Fernandez on 09-30-2024 Lymphocytes Auto (Unsp spec) [#/Vol] 1.23 10*3/uL 0.83-4.51 [facility] Automated lymphocyte count a s percentage of total leukocytesOrdered By: Jose Fernandez on 09-30-2024 Lymphocytes/100 WBC Auto (Unsp spec) 15.2 % Low 19-41 [facility] BUN/creatinine ratioOrdered By: Jose Fernandez on 09-30-2024 Urea nitrogen/Creatinine [Mass ratio] 22.8 mg/mg High 10-20 [facility] Basic Metabolic Profile (BMP )on 09-30-2024 Anion gap [Moles/Vol] 12 mmol/L Normal 5-15 [facility] Comment on above: Performed By: #### L 100.0100, L500.2500 ####[facility] [address] [place], [address] BUN/CRE 22.8 RATIO High 10-20 [facility] Comment on above: Performed By: #### L 100.0100, L500.2500 ####[facility] [address] [place], [address] Calcium [Mass/Vol] 9.9 mg/dL Normal 7.6-11.0 [facility] Comment on above: Performed By: #### L 100.0100, L500.2500 ####[facility] [address] [place], [address] Chloride [Moles/Vol] 98 mmol/L Normal 96-108 [facility] Comment on above: Performed By: #### L 100.0100, L500.2500 ####[facility] [address] [place], [address] CO2 [Moles/Vol] 23.9 mmol/L Normal 22.0-29.0 [facility] Comment on above: Performed By: #### L 100.0100, L500.2500 ####[facility] [address] [place], [address] Creatinine [Mass/Vol] 2.29 mg/dL High 0.70-1.20 [facility] Comment on above: Performed By: #### L 100.0100, L500.2500 ####[facility] [address] [place], [address] ECRCL 30.70 ml/min Low 50-250 [facility] Comment on above: Performed By: #### L 100.0100, L500.2500 ####[facility] [address] [place], [address] GFR/1.73 sq M.predicted among non-blacks MDRD (S/P/Bld) [Vol rate/Area] 23 mL/min/{1.73_m2} Low >60 [facility] Comment on above: Result Comment: mL/m in/1.73m2 CKD-EPI Creatinine Equation (2020) Performed By: #### L 100.0100, L500.2500 ####[facility] [address] [place], [address] Glucose [Mass/Vol] 104 mg/dL High 70-99 [facility] Comment on above: Performed By: #### L 100.0100, L500.2500 ####[facility] [address] [place], [address] Potassium [Moles/Vol] 3.5 mmol/L Normal 3.3-5.1 [facility] Comment on above: Performed By: #### L 100.0100, L500.2500 ####[facility] [address] [place], [address] Sodium [Moles/Vol] 133 mmol/L Normal 133-145 [facility] Comment on above: Performed By: #### L 100.0100, L500.2500 ####[facility] [address] [place], [address] Urea nitrogen [Mass/Vol] 52 mg/dL High 4-19 [facility] Comment on above: Performed By: #### L 100.0100, L500.2500 ####[facility] [address] [place], [address] Basophil percentageOrdered B y: Jose Fernandez on 09-30-2024 Basophils/100 WBC (Bld) 0.5 % 0-1 [facility] CBC W/Diff, Automatedon Absolute Lymph 1.23 X10 3/uL Normal 0.83-4.51 [facility] Comment on above: Performed By: #### L 100.0100, L500.2500 ####[facility] [address] [place], [address] Absolute Neut 5.8 X10 3/uL Normal 2.0-7.7 [facility] Comment on above: Performed By: #### L 100.0100, L500.2500 ####[facility] [address] [place], [address] Basophils/100 WBC (Bld) 0.5 % Normal 0-1 [facility] Comment on above: Performed By: #### L 100.0100, L500.2500 ####[facility] [address] [place], [address] Eosinophils/100 WBC (Bld) 3.0 % Normal 0-5 [facility] Comment on above: Performed By: #### L 100.0100, L500.2500 ####[facility] [address] [place], [address] Erythrocyte distribution width (RBC) [Ratio] 14.5 % Normal 11.6-14.6 [facility] Comment on above: Performed By: #### L 100.0100, L500.2500 ####[facility] [address] [place], [address] Hematocrit (Bld) [Volume fraction] 29.0 % Low 37-47 [facility] Comment on above: Performed By: #### L 100.0100, L500.2500 ####[facility] [address] [place], [address] Hemoglobin (Bld) [Mass/Vol] 9.5 g/dL Low 12.0-15.0 [facility] Comment on above: Performed By: #### L 100.0100, L500.2500 ####[facility] [address] [place], [address] IG% 1.000 High 0.0-0.9 [facility] Comment on above: Result Comment: IG% - Immature Granulocytes (promyelocytes, myelocytes andmetamyelocytes) > 1% indicates that a LEFT SHIFT is Present. Performed By: #### L 100.0100, L500.2500 ####[facility] [address] [place], [address] Lymphocytes/100 WBC (Bld) 15.2 % Low 19-41 [facility] Comment on above: Performed By: #### L 100.0100, L500.2500 ####[facility] [address] [place], [address] MCH (RBC) [Entitic mass] 32.0 pg Normal 27.0-32.0 [facility] Comment on above: Performed By: #### L 100.0100, L500.2500 ####[facility] [address] [place], [address] MCHC (RBC) [Mass/Vol] 32.8 g/dL Normal 32-36 [facility] Comment on above: Performed By: #### L 100.0100, L500.2500 ####[facility] [address] [place], [address] MCV (RBC) [Entitic vol] 97.6 fL Normal 81-99 [facility] Comment on above: Performed By: #### L 100.0100, L500.2500 ####[facility] [address] [place], [address] Monocytes/100 WBC (Bld) 9.2 % Normal 0-10 [facility] Comment on above: Performed By: #### L 100.0100, L500.2500 ####[facility] [address] [place], [address] Neutrophils/100 WBC (Bld) 71.1 % High 47-70 [facility] Comment on above: Performed By: #### L 100.0100, L500.2500 ####[facility] [address] [place], [address] Nucleated RBC (Bld) [#/Vol] 0 10*3/uL Normal 0-5 [facility] Comment on above: Performed By: #### L 100.0100, L500.2500 ####[facility] [address] [place], [address] Platelet mean volume (Bld) [Entitic vol] 11.8 fL Normal 6.2-12.0 [facility] Comment on above: Performed By: #### L 100.0100, L500.2500 ####[facility] [address] [place], [address] Platelets (Bld) [#/Vol] 226 10*3/uL Normal 150-450 [facility] Comment on above: Performed By: #### L 100.0100, L500.2500 ####[facility] [address] [place], [address] RBC (Bld) [#/Vol] 2.97 10*6/uL Low 4.2-5.4 [facility] Comment on above: Performed By: #### L 100.0100, L500.2500 ####[facility] [address] [place], [address] RDW SD 51.7 fl High 35.1-43.9 [facility] Comment on above: Performed By: #### L 100.0100, L500.2500 ####[facility] [address] [place], [place], [address] WBC (Bld) [#/Vol] 8.1 10*3/uL Normal 4.4-11.0 [facility] Comment on above: Performed By: #### L 100.0100, L500.2500 ####[facility] [address] [place], [place], [id number] Carbon dioxide measurementOr dered By: Jose Fernandez on 09-30-2024 CO2 [Moles/Vol] 23.9 mmol/L 22.0-29.0 [facility] Chloride measurementOrdered By: Joes Fernandez on 09-30-2024 Chloride [Moles/Vol] 98 mmol/L 96-108 [facility] Eosinophil percentageOrdered By: Joes Fernandez on 09-30-2024 Eosinophils/100 WBC (Bld) 3.0 % 0-5 [facility] Erythrocyte distribution wid th ratioOrdered By: Jose Fernandez on 09-30-2024 Erythrocyte distribution width (RBC) [Ratio] 14.5 % 11.6-14.6 [facility] Erythrocyte distribution wid th standard deviationOrdered By: Jose Fernandez on 09-30-2024 Erythrocyte distribution width (RBC) [Ratio] 51.7 fl High 35.1-43.9 [facility] Glomerular filtration rate ( GFR) estimation/1.73 sq m using serum, plasma, or whole bOrdered By: Jose Fernandez on 09-30-2024 GFR/1.73 sq M.predicted among non-blacks MDRD (S/P/Bld) [Vol rate/Area] 23 mL/min/{1.73_m2} Low >60 [facility] Hematocrit Auto (Bld) [Volum e fraction]Ordered By: Jose Fernandez on 09-30-2024 Hematocrit (Bld) [Volume fraction] 29.0 % Low 37-47 [facility] Hemoglobin measurementOrdere d By: Jose Fernandez on 09-30-2024 Hemoglobin (Bld) [Mass/Vol] 9.5 g/dL Low 12.0-15.0 [facility] Immature granulocytes/100 WB C Auto (Bld)Ordered By: Jose Fernandez on 09-30-2024 Immature granulocytes/100 WBC (Bld) 1.000 % High 0.0-0.9 [facility] MCV (mean corpuscular volume ) determinationOrdered By: Jose Fernandez on 09-30-2024 MCV (RBC) [Entitic vol] 97.6 fL 81-99 [facility] Mean corpuscular hemoglobin (MCH) determinationOrdered By: Jose Fernandez on 09-30-2024 MCH (RBC) [Entitic mass] 32.0 pg 27.0-32.0 [facility] Monocyte percentageOrdered B y: Jose Fernandez on 09-30-2024 Monocytes/100 WBC (Bld) 9.2 % 0-10 [facility] Neutrophil percentageOrdered By: Jose Fernandez on 09-30-2024 Neutrophils/100 WBC (Bld) 71.1 % High 47-70 [facility] Platelet countOrdered By: Corry Fernandez on 09-30-2024 Platelets (Bld) [#/Vol] 226 10*3/uL 150-450 [facility] RBC Auto (Bld) [#/Vol]Ordere d By: Jose Fernandez on 09-30-2024 RBC (Bld) [#/Vol] 2.97 10*6/uL Low 4.2-5.4 [facility] Serum creatinine measurement (mass/volume)Ordered By: Jose Fernandez on 09-30-2024 Creatinine [Mass/Vol] 2.29 mg/dL High 0.70-1.20 [facility] Serum glucose measurement (m ass/volume)Ordered By: Jose Fernandez on 09-30-2024 Glucose [Mass/Vol] 104 mg/dL High 70-99 [facility] Serum or plasma anion gap de termination (moles/volume)Ordered By: Jose Fernandez on 09-30-2024 Anion gap [Moles/Vol] 12 mmol/L 5-15 [facility] Serum or plasma calcium addie urement (mass/volume)Ordered By: Jose Fernandez on 09-30-2024 Calcium [Mass/Vol] 9.9 mg/dL 7.6-11.0 [facility] Serum or plasma potassium me asurementOrdered By: Jose Fernandez on 09-30-2024 Potassium [Moles/Vol] 3.5 mmol/L 3.3-5.1 [facility] Serum or plasma sodium measu rement (moles/volume)Ordered By: Jose Fernandez on 09-30-2024 Sodium [Moles/Vol] 133 mmol/L 133-145 [facility] Serum or plasma urea nitroge n measurement (mass/volume)Ordered By: Jose Fernandez on 09-30-2024 Urea nitrogen [Mass/Vol] 52 mg/dL High 4-19 [facility] White blood cell (WBC) count Ordered By: Jose Fernandez on 09-30-2024 WBC (Bld) [#/Vol] 8.1 10*3/uL 4.4-11.0 [facility] Bedside Glucoseon 09-29-2024 FINGERSTICK GLU 106 mg/dL Normal 74-106 [facility] Comment on above: Result Comment: ROLDAN SCHAFFER OF PATIENT CARE PER NURSING PROTOCOL Performed By: #### L 501.080 ####[facility] [address] [place], [place], [id number] Creatinine, Urineon 09-30-19 25 URINE CREAT 52.90 mg/dL Normal NO RANGE EST. [facility] Comment on above: Performed By: #### L 502.0300 ####[facility] [address] [place], [place], [id number] Glucose measurement at bedsi deOrdered By: Jose Fernandez on 09-29-2024 Glucose [Mass/Vol] 106 mg/dL 74-106 [facility] Bilirubin, totalOrdered By: Raymond Contreras on 09-28-2024 Bilirubin [Mass/Vol] 0.54 mg/dL 0.00-1.30 [facility] CBC W/Diff, Automatedon 03-0 2-2025 Absolute Lymph 0.87 X10 3/uL Normal 0.83-4.51 [facility] Comment on above: Performed By: #### L 501.2300, L501.5200, L100.0100, L500.4050 ####[facility] [address] [place], [address] Absolute Neut 6.5 X10 3/uL Normal 2.0-7.7 [facility] Comment on above: Performed By: #### L 501.2300, L501.5200, L100.0100, L500.4050 ####[facility] [address] [place], [address] Basophils/100 WBC (Bld) 0.1 % Normal 0-1 [facility] Comment on above: Performed By: #### L 501.2300, L501.5200, L100.0100, L500.4050 ####[facility] [address] [place], [address] Eosinophils/100 WBC (Bld) 1.1 % Normal 0-5 [facility] Comment on above: Performed By: #### L 501.2300, L501.5200, L100.0100, L500.4050 ####[facility] [address] [place], [address] Erythrocyte distribution width (RBC) [Ratio] 14.1 % Normal 11.6-14.6 [facility] Comment on above: Performed By: #### L 501.2300, L501.5200, L100.0100, L500.4050 ####[facility] [address] [place], [address] Hematocrit (Bld) [Volume fraction] 30.6 % Low 37-47 [facility] Comment on above: Performed By: #### L 501.2300, L501.5200, L100.0100, L500.4050 ####[facility] [address] [place], [address] Hemoglobin (Bld) [Mass/Vol] 10.2 g/dL Low 12.0-15.0 [facility] Comment on above: Performed By: #### L 501.2300, L501.5200, L100.0100, L500.4050 ####[facility] [address] [place], [address] IG% 0.700 Normal 0.0-0.9 [facility] Comment on above: Result Comment: IG% - Immature Granulocytes (promyelocytes, myelocytes andmetamyelocytes) > 1% indicates that a LEFT SHIFT is Present. Performed By: #### L 501.2300, L501.5200, L100.0100, L500.4050 ####[facility] [address] [place], [address] Lymphocytes/100 WBC (Bld) 10.3 % Low 19-41 [facility] Comment on above: Performed By: #### L 501.2300, L501.5200, L100.0100, L500.4050 ####[facility] [address] [place], [address] MCH (RBC) [Entitic mass] 32.0 pg Normal 27.0-32.0 [facility] Comment on above: Performed By: #### L 501.2300, L501.5200, L100.0100, L500.4050 ####[facility] [address] [place], [address] MCHC (RBC) [Mass/Vol] 33.3 g/dL Normal 32-36 [facility] Comment on above: Performed By: #### L 501.2300, L501.5200, L100.0100, L500.4050 ####[facility] [address] [place], [address] MCV (RBC) [Entitic vol] 95.9 fL Normal 81-99 [facility] Comment on above: Performed By: #### L 501.2300, L501.5200, L100.0100, L500.4050 ####[facility] [address] [place], [address] Monocytes/100 WBC (Bld) 10.7 % High 0-10 [facility] Comment on above: Performed By: #### L 501.2300, L501.5200, L100.0100, L500.4050 ####[facility] [address] [place], [address] Neutrophils/100 WBC (Bld) 77.1 % High 47-70 [facility] Comment on above: Performed By: #### L 501.2300, L501.5200, L100.0100, L500.4050 ####[facility] [address] [place], [address] Nucleated RBC (Bld) [#/Vol] 0 10*3/uL Normal 0-5 [facility] Comment on above: Performed By: #### L 501.2300, L501.5200, L100.0100, L500.4050 ####[facility] [address] [place], [address] Platelet mean volume (Bld) [Entitic vol] 12.2 fL High 6.2-12.0 [facility] Comment on above: Performed By: #### L 501.2300, L501.5200, L100.0100, L500.4050 ####[facility] [address] [place], [address] Platelets (Bld) [#/Vol] 198 10*3/uL Normal 150-450 [facility] Comment on above: Performed By: #### L 501.2300, L501.5200, L100.0100, L500.4050 ####[facility] [address] [place], [address] RBC (Bld) [#/Vol] 3.19 10*6/uL Low 4.2-5.4 [facility] Comment on above: Performed By: #### L 501.2300, L501.5200, L100.0100, L500.4050 ####[facility] [address] [place], [address] RDW SD 49.7 fl High 35.1-43.9 [facility] Comment on above: Performed By: #### L 501.2300, L501.5200, L100.0100, L500.4050 ####[facility] [address] [place], [address] WBC (Bld) [#/Vol] 8.5 10*3/uL Normal 4.4-11.0 [facility] Comment on above: Performed By: #### L 501.2300, L501.5200, L100.0100, L500.4050 ####[facility] [address] [place], [address] Comprehensive Metabolic Prof mion 09-28-2024 Albumin [Mass/Vol] 3.3 g/dL Low 3.4-4.8 [facility] Comment on above: Performed By: #### L 501.2300, L501.5200, L100.0100, L500.4050 ####[facility] [address] [place], [address] Albumin/Globulin [Mass ratio] 0.8 {ratio} Low 0.9-2.4 [facility] Comment on above: Performed By: #### L 501.2300, L501.5200, L100.0100, L500.4050 ####[facility] [address] [place], [address] ALK PHOS 101 U/L Normal 35-104 [facility] Comment on above: Performed By: #### L 501.2300, L501.5200, L100.0100, L500.4050 ####[facility] [address] [place], [address] ALT [Catalytic activity/Vol] 15 U/L Normal <=34 [facility] Comment on above: Performed By: #### L 501.2300, L501.5200, L100.0100, L500.4050 ####[facility] [address] [place], [address] Anion gap [Moles/Vol] 16 mmol/L High 5-15 [facility] Comment on above: Performed By: #### L 501.2300, L501.5200, L100.0100, L500.4050 ####[facility] [address] [place], [address] AST [Catalytic activity/Vol] 23 U/L Normal <=31 [facility] Comment on above: Performed By: #### L 501.2300, L501.5200, L100.0100, L500.4050 ####[facility] [address] [place], [address] Bilirubin [Mass/Vol] 0.54 mg/dL Normal 0.00-1.30 [facility] Comment on above: Performed By: #### L 501.2300, L501.5200, L100.0100, L500.4050 ####[facility] [address] [place], [address] BUN/CRE 20.2 RATIO High 10-20 [facility] Comment on above: Performed By: #### L 501.2300, L501.5200, L100.0100, L500.4050 ####[facility] [address] [place], [address] Calcium [Mass/Vol] 9.7 mg/dL Normal 7.6-11.0 [facility] Comment on above: Performed By: #### L 501.2300, L501.5200, L100.0100, L500.4050 ####[facility] [address] [place], [address] Chloride [Moles/Vol] 97 mmol/L Normal 96-108 [facility] Comment on above: Performed By: #### L 501.2300, L501.5200, L100.0100, L500.4050 ####[facility] [address] [place], [address] CO2 [Moles/Vol] 20.6 mmol/L Low 22.0-29.0 [facility] Comment on above: Performed By: #### L 501.2300, L501.5200, L100.0100, L500.4050 ####[facility] [address] [place], [address] Creatinine [Mass/Vol] 2.95 mg/dL High 0.70-1.20 [facility] Comment on above: Performed By: #### L 501.2300, L501.5200, L100.0100, L500.4050 ####[facility] [address] [place], [address] ECRCL 23.62 ml/min Low 50-250 [facility] Comment on above: Performed By: #### L 501.2300, L501.5200, L100.0100, L500.4050 ####[facility] [address] [place], [address] GFR/1.73 sq M.predicted among non-blacks MDRD (S/P/Bld) [Vol rate/Area] 17 mL/min/{1.73_m2} Low >60 [facility] Comment on above: Result Comment: mL/m in/1.73m2 CKD-EPI Creatinine Equation (2020) Performed By: #### L 501.2300, L501.5200, L100.0100, L500.4050 ####[facility] [address] [place], [address] Globulin (S) [Mass/Vol] 4.2 g/dL Normal 2.2-4.2 [facility] Comment on above: Performed By: #### L 501.2300, L501.5200, L100.0100, L500.4050 ####[facility] [address] [place], [address] Glucose [Mass/Vol] 114 mg/dL High 70-99 [facility] Comment on above: Performed By: #### L 501.2300, L501.5200, L100.0100, L500.4050 ####[facility] [address] [place], [address] Potassium [Moles/Vol] 3.7 mmol/L Normal 3.3-5.1 [facility] Comment on above: Performed By: #### L 501.2300, L501.5200, L100.0100, L500.4050 ####[facility] [address] [place], [address] Sodium [Moles/Vol] 133 mmol/L Normal 133-145 [facility] Comment on above: Performed By: #### L 501.2300, L501.5200, L100.0100, L500.4050 ####[facility] [address] [place], [address] T PROT 7.5 g/dL Normal 5.9-8.4 [facility] Comment on above: Performed By: #### L 501.2300, L501.5200, L100.0100, L500.4050 ####[facility] [address] [place], [address] Urea nitrogen [Mass/Vol] 60 mg/dL High 4-19 [facility] Comment on above: Performed By: #### L 501.2300, L501.5200, L100.0100, L500.4050 ####[facility] [address] [place], [address] Magnesiumon 09-28-2024 Magnesium [Mass/Vol] 2.0 mg/dL Normal 1.5-2.2 [facility] Comment on above: Performed By: #### L 501.2300, L501.5200, L100.0100, L500.4050 ####[facility] [address] [place], [address] Magnesium measurement (mass/ volume)Ordered By: Raymond Contreras on 09-28-2024 Magnesium (Unsp spec) [Mass/Vol] 2.0 mg/dL 1.5-2.2 [facility] No Panel InformationOrdered By: Raymond Contreras on 09-28-2024 23 U/L <32 [facility] Phosphoruson 09-28-2024 Phosphate [Mass/Vol] 3.4 mg/dL Normal 2.7-4.5 [facility] Comment on above: Performed By: #### L 501.2300, L501.5200, L100.0100, L500.4050 ####[facility] [address] [place], [address] Serum globulin measurementOr dered By: Raymond Contreras on 09-28-2024 Globulin (S) [Mass/Vol] 4.2 g/dL 2.2-4.2 [facility] Serum or plasma alanine garcia otransferase (ALT) measurementOrdered By: Raymond Contreras on 09-28-2024 ALT [Catalytic activity/Vol] 15 U/L <35 [facility] Serum or plasma albumin addie urement (mass/volume)Ordered By: Raymond Contreras on 09-28-2024 Albumin [Mass/Vol] 3.3 g/dL Low 3.4-4.8 [facility] [facility] Serum or plasma albumin/glob ulin mass ratioOrdered By: Raymond Contreras on 09-28-2024 Albumin/Globulin [Mass ratio] 0.8 {ratio} Low 0.9-2.4 [facility] Serum or plasma alkaline jabier sphatase measurementOrdered By: Raymond Contreras on 09-28-2024 ALP [Catalytic activity/Vol] 101 U/L 35-104 [facility] Total proteinOrdered By: Mt Contreras on 09-28-2024 Protein [Mass/Vol] 7.5 g/dL 5.9-8.4 [facility] Urine creatinine measurement (mass/volume)Ordered By: Diana Crowell on 09-28-2024 Creatinine (U) [Mass/Vol] 52.90 mg/dL NO RANGE EST. [facility] Basic Metabolic Profile (BMP )on 09-27-2024 Anion gap [Moles/Vol] 15 mmol/L Normal 5-15 [facility] Comment on above: Performed By: #### L 500.2500, L501.5200 ####[facility] [address] [place], [address] BUN/CRE 18.6 RATIO Normal 10-20 [facility] Comment on above: Performed By: #### L 500.2500, L501.5200 ####[facility] [address] [place], [address] Calcium [Mass/Vol] 9.3 mg/dL Normal 7.6-11.0 [facility] Comment on above: Performed By: #### L 500.2500, L501.5200 ####[facility] [address] [place], [address] Chloride [Moles/Vol] 96 mmol/L Normal 96-108 [facility] Comment on above: Performed By: #### L 500.2500, L501.5200 ####[facility] [address] [place], [address] CO2 [Moles/Vol] 22.7 mmol/L Normal 22.0-29.0 [facility] Comment on above: Performed By: #### L 500.2500, L501.5200 ####[facility] [address] [place], [address] Creatinine [Mass/Vol] 3.32 mg/dL High 0.70-1.20 [facility] Comment on above: Performed By: #### L 500.2500, L501.5200 ####[facility] [address] [place], [address] ECRCL 21.20 ml/min Low 50-250 [facility] Comment on above: Performed By: #### L 500.2500, L501.5200 ####[facility] [address] [place], [address] GFR/1.73 sq M.predicted among non-blacks MDRD (S/P/Bld) [Vol rate/Area] 15 mL/min/{1.73_m2} Low >60 [facility] Comment on above: Result Comment: mL/m in/1.73m2 CKD-EPI Creatinine Equation (2020) Performed By: #### L 500.2500, L501.5200 ####[facility] [address] [place], [address] Glucose [Mass/Vol] 119 mg/dL High 70-99 [facility] Comment on above: Performed By: #### L 500.2500, L501.5200 ####[facility] [address] [place], [address] Potassium [Moles/Vol] 3.3 mmol/L Normal 3.3-5.1 [facility] Comment on above: Performed By: #### L 500.2500, L501.5200 ####[facility] [address] [place], [address] Sodium [Moles/Vol] 134 mmol/L Normal 133-145 [facility] Comment on above: Performed By: #### L 500.2500, L501.5200 ####[facility] [address] [place], [address] Urea nitrogen [Mass/Vol] 62 mg/dL High 4-19 [facility] Comment on above: Performed By: #### L 500.2500, L501.5200 ####[facility] [address] [place], [address] Anion gap [Moles/Vol] 18 mmol/L High 5-15 [facility] Comment on above: Performed By: #### L 500.2500, L100.0100 ####[facility] [address] [place], [address] BUN/CRE 17.5 RATIO Normal 10-20 [facility] Comment on above: Performed By: #### L 500.2500, L100.0100 ####[facility] [address] [place], [address] Calcium [Mass/Vol] 9.3 mg/dL Normal 7.6-11.0 [facility] Comment on above: Performed By: #### L 500.2500, L100.0100 ####[facility] [address] [place], [address] Chloride [Moles/Vol] 99 mmol/L Normal 96-108 [facility] Comment on above: Performed By: #### L 500.2500, L100.0100 ####[facility] [address] [place], [address] CO2 [Moles/Vol] 21.1 mmol/L Low 22.0-29.0 [facility] Comment on above: Performed By: #### L 500.2500, L100.0100 ####[facility] [address] [place], [address] Creatinine [Mass/Vol] 3.46 mg/dL High 0.70-1.20 [facility] Comment on above: Performed By: #### L 500.2500, L100.0100 ####[facility] [address] [place], [address] ECRCL 20.35 ml/min Normal [facility] Comment on above: Performed By: #### L 500.2500, L100.0100 ####[facility] [address] [place], [address] GFR/1.73 sq M.predicted among non-blacks MDRD (S/P/Bld) [Vol rate/Area] 14 mL/min/{1.73_m2} Low >60 [facility] Comment on above: Result Comment: mL/m in/1.73m2 CKD-EPI Creatinine Equation (2020) Performed By: #### L 500.2500, L100.0100 ####[facility] [address] [place], [address] Glucose [Mass/Vol] 109 mg/dL High 70-99 [facility] Comment on above: Performed By: #### L 500.2500, L100.0100 ####[facility] [address] [place], [address] Potassium [Moles/Vol] 3.0 mmol/L Low 3.3-5.1 [facility] Comment on above: Performed By: #### L 500.2500, L100.0100 ####[facility] [address] [place], [address] Sodium [Moles/Vol] 137 mmol/L Normal 133-145 [facility] Comment on above: Performed By: #### L 500.2500, L100.0100 ####[facility] [address] [place], [address] Urea nitrogen [Mass/Vol] 61 mg/dL High 4-19 [facility] Comment on above: Performed By: #### L 500.2500, L100.0100 ####[facility] [address] [place], [address] CBC W/Diff, Automatedon 03-0 -2024 Absolute Lymph 0.74 X10 3/uL Low 0.83-4.51 [facility] Comment on above: Performed By: #### L 500.2500, L100.0100 ####[facility] [address] [place], [address] Absolute Neut 8.1 X10 3/uL High 2.0-7.7 [facility] Comment on above: Performed By: #### L 500.2500, L100.0100 ####[facility] [address] [place], [address] Basophils/100 WBC (Bld) 0.2 % Normal 0-1 [facility] Comment on above: Performed By: #### L 500.2500, L100.0100 ####[facility] [address] [place], [address] Eosinophils/100 WBC (Bld) 0.5 % Normal 0-5 [facility] Comment on above: Performed By: #### L 500.2500, L100.0100 ####[facility] [address] [place], [address] Erythrocyte distribution width (RBC) [Ratio] 14.0 % Normal 11.6-14.6 [facility] Comment on above: Performed By: #### L 500.2500, L100.0100 ####[facility] [address] [place], [address] Hematocrit (Bld) [Volume fraction] 31.8 % Low 37-47 [facility] Comment on above: Performed By: #### L 500.2500, L100.0100 ####[facility] [address] [place], [address] Hemoglobin (Bld) [Mass/Vol] 10.6 g/dL Low 12.0-15.0 [facility] Comment on above: Performed By: #### L 500.2500, L100.0100 ####[facility] [address] [place], [address] IG% 0.800 Normal 0.0-0.9 [facility] Comment on above: Result Comment: IG% - Immature Granulocytes (promyelocytes, myelocytes andmetamyelocytes) > 1% indicates that a LEFT SHIFT is Present. Performed By: #### L 500.2500, L100.0100 ####[facility] [address] [place], [address] Lymphocytes/100 WBC (Bld) 7.4 % Low 19-41 [facility] Comment on above: Performed By: #### L 500.2500, L100.0100 ####[facility] [address] [place], [address] MCH (RBC) [Entitic mass] 31.8 pg Normal 27.0-32.0 [facility] Comment on above: Performed By: #### L 500.2500, L100.0100 ####[facility] [address] [place], [address] MCHC (RBC) [Mass/Vol] 33.3 g/dL Normal 32-36 [facility] Comment on above: Performed By: #### L 500.2500, L100.0100 ####[facility] [address] [place], [address] MCV (RBC) [Entitic vol] 95.5 fL Normal 81-99 [facility] Comment on above: Performed By: #### L 500.2500, L100.0100 ####[facility] [address] [place], [address] Monocytes/100 WBC (Bld) 10.4 % High 0-10 [facility] Comment on above: Performed By: #### L 500.2500, L100.0100 ####[facility] [address] [place], [address] Neutrophils/100 WBC (Bld) 80.7 % High 47-70 [facility] Comment on above: Performed By: #### L 500.2500, L100.0100 ####[facility] [address] [place], [address] Nucleated RBC (Bld) [#/Vol] 0 10*3/uL Normal 0-5 [facility] Comment on above: Performed By: #### L 500.2500, L100.0100 ####[facility] [address] [place], [address] Platelet mean volume (Bld) [Entitic vol] 12.8 fL High 6.2-12.0 [facility] Comment on above: Performed By: #### L 500.2500, L100.0100 ####[facility] [address] [place], [address] Platelets (Bld) [#/Vol] 188 10*3/uL Normal 150-450 [facility] Comment on above: Performed By: #### L 500.2500, L100.0100 ####[facility] [address] [place], [address] RBC (Bld) [#/Vol] 3.33 10*6/uL Low 4.2-5.4 [facility] Comment on above: Performed By: #### L 500.2500, L100.0100 ####[facility] [address] [place], [address] RDW SD 49.1 fl High 35.1-43.9 [facility] Comment on above: Performed By: #### L 500.2500, L100.0100 ####[facility] [address] [place], [address] WBC (Bld) [#/Vol] 10.1 10*3/uL Normal 4.4-11.0 [facility] Comment on above: Performed By: #### L 500.2500, L100.0100 ####[facility] [address] [place], [address] M100.678on 09-27-2024 M100.678 SARS-CoV-2 (COVID 19 ) Negative INFLUENZA A Negative INFLUENZA B Negative RSV PCR Negative Normal [facility] Comment on above: Performed By: #### M 100.678 ####[facility] [address] [place], [address] Magnesiumon 09-27-2024 Magnesium [Mass/Vol] 1.4 mg/dL Low 1.5-2.2 [facility] Comment on above: Performed By: #### L 500.2500, L501.5200 ####[facility] [address] [place], [address] 12 Lead EKGon 09-26-2024 12 Lead EKG Normal [facility] Amorphous sediment detection in urine sediment by light microscopyOrdered By: Victor Manuel Winkler on 09-26-2024 Amorphous sediment LM Ql (Urine sed) 2+ URATE [facility] Basic Metabolic Profile (BMP )on 09-26-2024 Anion gap [Moles/Vol] 17 mmol/L High 5-15 [facility] Comment on above: Performed By: #### L 500.2500, L500.3400, L100.0100, L503.7505 ####[facility] [address] [place], [address] BUN/CRE 15.5 RATIO Normal 10-20 [facility] Comment on above: Performed By: #### L 500.2500, L500.3400, L100.0100, L503.7505 ####[facility] [address] [place], [address] Calcium [Mass/Vol] 9.8 mg/dL Normal 7.6-11.0 [facility] Comment on above: Performed By: #### L 500.2500, L500.3400, L100.0100, L503.7505 ####[facility] [address] [place], [address] Chloride [Moles/Vol] 95 mmol/L Low 96-108 [facility] Comment on above: Performed By: #### L 500.2500, L500.3400, L100.0100, L503.7505 ####[facility] [address] [place], [address] CO2 [Moles/Vol] 21.7 mmol/L Low 22.0-29.0 [facility] Comment on above: Performed By: #### L 500.2500, L500.3400, L100.0100, L503.7505 ####[facility] [address] [place], [address] Creatinine [Mass/Vol] 3.89 mg/dL High 0.70-1.20 [facility] Comment on above: Performed By: #### L 500.2500, L500.3400, L100.0100, L503.7505 ####[facility] [address] [place], [address] ECRCL 17.98 ml/min Normal [facility] Comment on above: Performed By: #### L 500.2500, L500.3400, L100.0100, L503.7505 ####[facility] [address] [place], [address] GFR/1.73 sq M.predicted among non-blacks MDRD (S/P/Bld) [Vol rate/Area] 12 mL/min/{1.73_m2} Low >60 [facility] Comment on above: Result Comment: mL/m in/1.73m2 CKD-EPI Creatinine Equation (2020) Performed By: #### L 500.2500, L500.3400, L100.0100, L503.7505 ####[facility] [address] [place], [address] Glucose [Mass/Vol] 144 mg/dL High 70-99 [facility] Comment on above: Performed By: #### L 500.2500, L500.3400, L100.0100, L503.7505 ####[facility] [address] [place], [address] Potassium [Moles/Vol] 3.4 mmol/L Normal 3.3-5.1 [facility] Comment on above: Performed By: #### L 500.2500, L500.3400, L100.0100, L503.7505 ####[facility] [address] [place], [address] Sodium [Moles/Vol] 134 mmol/L Normal 133-145 [facility] Comment on above: Performed By: #### L 500.2500, L500.3400, L100.0100, L503.7505 ####[facility] [address] [place], [address] Urea nitrogen [Mass/Vol] 60 mg/dL High 4-19 [facility] Comment on above: Performed By: #### L 500.2500, L500.3400, L100.0100, L503.7505 ####[facility] [address] [place], [address] Bilirubin Test strip Ql (U)O rdered By: Victor Manuel Winkler on 09-26-2024 Bilirubin Ql (U) 1 mg/dL High Negative [facility] Bilirubin directOrdered By: Victor Manuel Winkler on 09-26-2024 Bilirubin.direct [Mass/Vol] 0.38 mg/dL High 0.00-0.30 [facility] CBC W/Diff, Automatedon 08-31 Absolute Lymph 0.69 X10 3/uL Low 0.83-4.51 [facility] Comment on above: Performed By: #### L 500.2500, L500.3400, L100.0100, L503.7505 ####[facility] [address] [place], [address] Absolute Neut 13.0 X10 3/uL High 2.0-7.7 [facility] Comment on above: Performed By: #### L 500.2500, L500.3400, L100.0100, L503.7505 ####[facility] [address] [place], [address] Basophils/100 WBC (Bld) 0.2 % Normal 0-1 [facility] Comment on above: Performed By: #### L 500.2500, L500.3400, L100.0100, L503.7505 ####[facility] [address] [place], [address] Eosinophils/100 WBC (Bld) 0.1 % Normal 0-5 [facility] Comment on above: Performed By: #### L 500.2500, L500.3400, L100.0100, L503.7505 ####[facility] [address] [place], [address] Erythrocyte distribution width (RBC) [Ratio] 13.7 % Normal 11.6-14.6 [facility] Comment on above: Performed By: #### L 500.2500, L500.3400, L100.0100, L503.7505 ####[facility] [address] [place], [address] Hematocrit (Bld) [Volume fraction] 34.8 % Low 37-47 [facility] Comment on above: Performed By: #### L 500.2500, L500.3400, L100.0100, L503.7505 ####[facility] [address] [place], [address] Hemoglobin (Bld) [Mass/Vol] 11.6 g/dL Low 12.0-15.0 [facility] Comment on above: Performed By: #### L 500.2500, L500.3400, L100.0100, L503.7505 ####[facility] [address] [place], [address] IG% 0.600 Normal 0.0-0.9 [facility] Comment on above: Result Comment: IG% - Immature Granulocytes (promyelocytes, myelocytes andmetamyelocytes) > 1% indicates that a LEFT SHIFT is Present. Performed By: #### L 500.2500, L500.3400, L100.0100, L503.7505 ####[facility] [address] [place], [address] Lymphocytes/100 WBC (Bld) 4.5 % Low 19-41 [facility] Comment on above: Performed By: #### L 500.2500, L500.3400, L100.0100, L503.7505 ####[facility] [address] [place], [address] MCH (RBC) [Entitic mass] 32.0 pg Normal 27.0-32.0 [facility] Comment on above: Performed By: #### L 500.2500, L500.3400, L100.0100, L503.7505 ####[facility] [address] [place], [address] MCHC (RBC) [Mass/Vol] 33.3 g/dL Normal 32-36 [facility] Comment on above: Performed By: #### L 500.2500, L500.3400, L100.0100, L503.7505 ####[facility] [address] [place], [address] MCV (RBC) [Entitic vol] 95.9 fL Normal 81-99 [facility] Comment on above: Performed By: #### L 500.2500, L500.3400, L100.0100, L503.7505 ####[facility] [address] [place], [address] Monocytes/100 WBC (Bld) 9.4 % Normal 0-10 [facility] Comment on above: Performed By: #### L 500.2500, L500.3400, L100.0100, L503.7505 ####[facility] [address] [place], [address] Neutrophils/100 WBC (Bld) 85.2 % High 47-70 [facility] Comment on above: Performed By: #### L 500.2500, L500.3400, L100.0100, L503.7505 ####[facility] [address] [place], [address] Nucleated RBC (Bld) [#/Vol] 0 10*3/uL Normal 0-5 [facility] Comment on above: Performed By: #### L 500.2500, L500.3400, L100.0100, L503.7505 ####[facility] [address] [place], [address] Platelet mean volume (Bld) [Entitic vol] 12.4 fL High 6.2-12.0 [facility] Comment on above: Performed By: #### L 500.2500, L500.3400, L100.0100, L503.7505 ####[facility] [address] [place], [address] Platelets (Bld) [#/Vol] 213 10*3/uL Normal 150-450 [facility] Comment on above: Performed By: #### L 500.2500, L500.3400, L100.0100, L503.7505 ####[facility] [address] [place], [address] RBC (Bld) [#/Vol] 3.63 10*6/uL Low 4.2-5.4 [facility] Comment on above: Performed By: #### L 500.2500, L500.3400, L100.0100, L503.7505 ####[facility] [address] [place], [address] RDW SD 49.0 fl High 35.1-43.9 [facility] Comment on above: Performed By: #### L 500.2500, L500.3400, L100.0100, L503.7505 ####[facility] [address] [place], [address] WBC (Bld) [#/Vol] 15.2 10*3/uL High 4.4-11.0 [facility] Comment on above: Performed By: #### L 500.2500, L500.3400, L100.0100, L503.7505 ####[facility] [address] [place], [address] Chest 1 View (Portable)on Chest 1 View (Portable) Normal [facility] Echo Completeon 09-26-2024 Echo Complete Normal [facility] Emergency Department Summary on 09-26-2024 Emergency Department Summary Normal [facility] H AND P Exam - Hospitaliston 09-26-2024 H&P Exam - Hospitalist Normal [facility] Hyaline casts LM.LPF (Urine sed) [#/Area]Ordered By: Victor Manuel Winkler on 09-26-2024 Hyaline casts (Urine sed) [#/Area] 0 /[LPF] 0-5 [facility] Influenza virus A and B and SARS-CoV-2 (COVID-19) and Respiratory syncytial virus RNAOrdered By: Chemo Ramirez on 09-26-2024 SARS-CoV-2 (COVID-19) RNA MARLYN+probe Ql (Unsp spec) [facility] Ketones Test strip Ql (U)Ord ered By: Victor Manuel Winkler on 09-26-2024 Ketones Ql (U) Negative Negative [facility] Kidney and Bladderon 025 Kidney and Bladder Normal [facility] L503.7505on 09-26-2024 Natriuretic peptide B (Bld) [Mass/Vol] 1143 pg/mL High <=900 [facility] Comment on above: Result Comment: Hear t Failure Unlikely: < 300 pg/mLHeart Failure Likely< 50 Years: > 450 pg/mL50-75 Years: > 900 pg/mL>75 Years: > 1800 pg/mL Performed By: #### L 500.2500, L500.3400, L100.0100, L503.7505 ####[facility] [address] [place], [address] Liver Profileon 09-26-2024 Albumin [Mass/Vol] 3.8 g/dL Normal 3.4-4.8 [facility] Comment on above: Performed By: #### L 500.2500, L500.3400, L100.0100, L503.7505 ####[facility] [address] [place], [address] ALK PHOS 99 U/L Normal 35-104 [facility] Comment on above: Performed By: #### L 500.2500, L500.3400, L100.0100, L503.7505 ####[facility] [address] [place], [address] ALT [Catalytic activity/Vol] 18 U/L Normal <=34 [facility] Comment on above: Performed By: #### L 500.2500, L500.3400, L100.0100, L503.7505 ####[facility] [address] [place], [address] AST [Catalytic activity/Vol] 28 U/L Normal <=31 [facility] Comment on above: Performed By: #### L 500.2500, L500.3400, L100.0100, L503.7505 ####[facility] [address] [place], [address] Bilirubin [Mass/Vol] 0.79 mg/dL Normal 0.00-1.30 [facility] Comment on above: Performed By: #### L 500.2500, L500.3400, L100.0100, L503.7505 ####[facility] [address] [place], [address] Bilirubin.direct [Mass/Vol] 0.38 mg/dL High 0.00-0.30 [facility] Comment on above: Performed By: #### L 500.2500, L500.3400, L100.0100, L503.7505 ####[facility] [address] [place], [address] Globulin (S) [Mass/Vol] 4.4 g/dL High 2.2-4.2 [facility] Comment on above: Performed By: #### L 500.2500, L500.3400, L100.0100, L503.7505 ####[facility] [address] [place], [address] T PROT 8.2 g/dL Normal 5.9-8.4 [facility] Comment on above: Performed By: #### L 500.2500, L500.3400, L100.0100, L503.7505 ####[facility] [address] [place], [address] Mucus LM Ql (Urine sed)Order ed By: Victor Manuel Winkler on 09-26-2024 Mucus Ql (Urine sed) 0 SEEN /hpf [facility] Nitrite Test strip Ql (U)Ord ered By: Victor Manuel Winkler on 09-26-2024 Nitrite Ql (U) Negative Negative [facility] No Panel InformationOrdered By: Victor Manuel Winkler on 09-26-2024 1143 pg/mL High <900 [facility] Protein Test strip Ql (U)Ord ered By: Victor Manuel Winkler on 09-26-2024 Protein Ql (U) 100 mg/dl High Negative [facility] Squamous epithelial cells de tection in urine sediment by light microscopyOrdered By: Victor Manuel Winkler on 09-26-2024 Epithelial cells.squamous LM Ql (Urine sed) 0-5 SEEN /hpf 5-10 [facility] Urinalysis, Completeon 09-26 CAST,FINE GRAN 0-5 SEEN Normal 0-5 [facility] Comment on above: Order Comment: FRANDY CTOR TO SPECIFY Performed By: #### L 400.0001 ####[facility] [address] [facility] [address] CAST,HYALINE 0-5 SEEN Normal 0-5 [facility] Comment on above: Order Comment: FRANDY CTOR TO SPECIFY Performed By: #### L 400.0001 ####[facility] [address] [place], [address] AMORPHOUS 2+ URATE Normal [facility] Comment on above: Order Comment: FRANDY CTOR TO SPECIFY Performed By: #### L 400.0001 ####[facility] [address] [place], [address] EPI,SQUAMOUS 0-5 SEEN Normal 5-10 [facility] Comment on above: Order Comment: FRANDY CTOR TO SPECIFY Performed By: #### L 400.0001 ####[facility] [address] [place], [address] RBC 0-5 SEEN Normal 0-5 [facility] Comment on above: Order Comment: FRANDY CTOR TO SPECIFY Performed By: #### L 400.0001 ####[facility] [address] [place], [address] WBC 0-5 SEEN Normal 0-5 [facility] Comment on above: Order Comment: FRANDY CTOR TO SPECIFY Performed By: #### L 400.0001 ####[facility] [address] [place], [address] BACTERIA 0 SEEN Normal None Seen [facility] Comment on above: Order Comment: FRANDY CTOR TO SPECIFY Performed By: #### L 400.0001 ####[facility] [address] [place], [place], [id number] Mucus Ql (Urine sed) 0 SEEN Normal [facility] Comment on above: Order Comment: FRANDY CTOR TO SPECIFY Performed By: #### L 400.0001 ####[facility] [address] [place], [place], [id number] Urine clarityOrdered By: Robert Winkler on 09-26-2024 Clarity (U) Sl. Cloudy Clear [facility] Urine color determinationOrd ered By: Victor Manuel Winkler on 09-26-2024 Color (U) Yellow Yellow [facility] Urine glucose detectionOrder ed By: Victor Manuel Winkler on 09-26-2024 Glucose Ql (U) Normal mg/dl Normal [facility] Urine leukocyte esterase det ection by dipstickOrdered By: Victor Manuel Winkler on 09-26-2024 Leukocyte esterase Test strip Ql (U) 25 /ul High Negative [facility] Urine pHOrdered By: Victor Manuel santa on 09-26-2024 pH (U) 5.0 [pH] 5.0 - 8.0 [facility] Urine sediment bacteria coun t by microscopy (number/high power field)Ordered By: Victor Manuel Winkler on 09-26-2024 Bacteria LM.HPF (Urine sed) [#/Area] 0 /[HPF] None Seen [facility] Urine sediment fine granular cast count by microscopy (number/low power field)Ordered By: Victor Manuel Winkler on 09-26-2024 Fine Granular Casts LM.LPF (Urine sed) [#/Area] 0-5 SEEN /lpf 0-5 [facility] Urine specific gravity measu rementOrdered By: Victor Manuel Winkler on 09-26-2024 Specific gravity (U) [Rel density] 1.025 1.002-1.03 0 [facility] Urine urobilinogen measureme ntOrdered By: Victor Manuel Winkler on 09-26-2024 Urobilinogen Ql (U) 1 mg/dl High Normal [facility] White blood cell countOrdere d By: Victor Manuel Winkler on 09-26-2024 White blood cell count 0-5 SEEN /hpf 0-5 [facility] Cancer Antigen 125on 025 CA 125 31.0 U/mL Normal 0.0-38.1 [facility] Comment on above: Result Comment: [employer] [employer] Electrochemiluminescence Immunoassay(ECLIA)Values obtained with different assay methods or kits cannotbe used interchangeably. Results cannot be interpreted asabsolute evidence of the presence or absence of malignantdisease.Performed at: [facility] [id number] Director: Joe Olivier PhD, Phone: [phone] Performed By: #### L 100.0100, L500.4050, L3100.5000, L3130.0010, L3100.3425, L504.2610 ####[facility] [address] [place], [place], [phone] KOFI + Protein Elect, Serumon 09-15-2024 Albumin [Mass/Vol] 3.3 g/dL Normal 2.9-4.4 [facility] Comment on above: Order Comment: N Performed By: #### L 100.0100, L500.4050, L3100.5000, L3130.0010, L3100.3425, L504.2610 ####[facility] [address] [place], [place], [phone](970) Albumin/Globulin [Mass ratio] 0.9 {ratio} Normal 0.7-1.7 [facility] Comment on above: Order Comment: N Performed By: #### L 100.0100, L500.4050, L3100.5000, L3130.0010, L3100.3425, L504.2610 ####[facility] [address] [place], [place], [phone] LQUJI-4-TJEY 0.4 g/dL Normal 0.0-0.4 [facility] Comment on above: Order Comment: N Performed By: #### L 100.0100, L500.4050, L3100.5000, L3130.0010, L3100.3425, L504.2610 ####[facility] [address] [place], [address] LKIDU-9-OPRR 0.9 g/dL Normal 0.4-1.0 [facility] Comment on above: Order Comment: N Performed By: #### L 100.0100, L500.4050, L3100.5000, L3130.0010, L3100.3425, L504.2610 ####[facility] [address] [place], [address] BETA GLOBULIN 1.2 g/dL Normal 0.7-1.3 [facility] Comment on above: Order Comment: N Performed By: #### L 100.0100, L500.4050, L3100.5000, L3130.0010, L3100.3425, L504.2610 ####[facility] [address] [place], [address] GAMMA GLOBULIN 1.4 g/dL Normal 0.4-1.8 [facility] Comment on above: Order Comment: N Performed By: #### L 100.0100, L500.4050, L3100.5000, L3130.0010, L3100.3425, L504.2610 ####[facility] [address] [place], [address] Globulin (S) [Mass/Vol] 4.0 g/dL Abnormal 2.2-3.9 [facility] Comment on above: Order Comment: N Performed By: #### L 100.0100, L500.4050, L3100.5000, L3130.0010, L3100.3425, L504.2610 ####[facility] [address] [place], [address] KOFI RESULT,S Comment Normal . [facility] Comment on above: Order Comment: N Result Comment: No m onoclonality detected. Performed By: #### L 100.0100, L500.4050, L3100.5000, L3130.0010, L3100.3425, L504.2610 ####[facility] [address] [place], [address] IMMUNOGLOB A QN 327 mg/dL Normal 87-352 [facility] Comment on above: Order Comment: N Performed By: #### L 100.0100, L500.4050, L3100.5000, L3130.0010, L3100.3425, L504.2610 ####[facility] [address] [place], [address] IMMUNOGLOB G QN 1492 mg/dL Normal 586-1602 [facility] Comment on above: Order Comment: N Performed By: #### L 100.0100, L500.4050, L3100.5000, L3130.0010, L3100.3425, L504.2610 ####[facility] [address] [place], [address] IMMUNOGLOB M QN 82 mg/dL Normal 26-217 [facility] Comment on above: Order Comment: N Performed By: #### L 100.0100, L500.4050, L3100.5000, L3130.0010, L3100.3425, L504.2610 ####[facility] [address] [place], [address] M-Wilfredo Not Observed Normal Not Observed [facility] Comment on above: Order Comment: N Performed By: #### L 100.0100, L500.4050, L3100.5000, L3130.0010, L3100.3425, L504.2610 ####[facility] [address] [place], [address] NOTE: Comment Normal . [facility] Comment on above: Order Comment: N Result Comment: Prot ein electrophoresis scan will follow via computer,mail, or jr. systems administrator delivery. Performed By: #### L 100.0100, L500.4050, L3100.5000, L3130.0010, L3100.3425, L504.2610 ####[facility] [address] [place], [address] Protein [Mass/Vol] 7.3 g/dL Normal 6.0-8.5 [facility] Comment on above: Order Comment: N Performed By: #### L 100.0100, L500.4050, L3100.5000, L3130.0010, L3100.3425, L504.2610 ####[facility] [address] [place], [address] Abie Lambda Light Chainson 09-15-2024 FR KAPPA LT CHN 107.4 mg/L Abnormal 3.3-19.4 [facility] Comment on above: Performed By: #### L 100.0100, L500.4050, L3100.5000, L3130.0010, L3100.3425, L504.2610 ####[facility] [address] [place], [address] FR LAMBDA LT CH 46.4 mg/L Abnormal 5.7-26.3 [facility] Comment on above: Performed By: #### L 100.0100, L500.4050, L3100.5000, L3130.0010, L3100.3425, L504.2610 ####[facility] [address] [place], [address] KAPPA/LAMBDA % 2.31 Abnormal 0.26-1.65 [facility] Comment on above: Performed By: #### L 100.0100, L500.4050, L3100.5000, L3130.0010, L3100.3425, L504.2610 ####[facility] [address] [place], [address] Albumin Elph [Mass/Vol]Order ed By: David Corral on 09-10-2024 Albumin [Mass/Vol] 3.3 g/dL 2.9-4.4 [facility] CBC W/Diff, Automatedon 08-30 Absolute Lymph 1.07 X10 3/uL Normal 0.83-4.51 [facility] Comment on above: Performed By: #### L 100.0100, L500.4050, L3100.5000, L3130.0010, L3100.3425, L504.2610 ####[facility] [address] [place], [address] Absolute Neut 7.2 X10 3/uL Normal 2.0-7.7 [facility] Comment on above: Performed By: #### L 100.0100, L500.4050, L3100.5000, L3130.0010, L3100.3425, L504.2610 ####[facility] [address] [place], [address] Basophils/100 WBC (Bld) 0.3 % Normal 0-1 [facility] Comment on above: Performed By: #### L 100.0100, L500.4050, L3100.5000, L3130.0010, L3100.3425, L504.2610 ####[facility] [address] [place], [address] Eosinophils/100 WBC (Bld) 2.0 % Normal 0-5 [facility] Comment on above: Performed By: #### L 100.0100, L500.4050, L3100.5000, L3130.0010, L3100.3425, L504.2610 ####[facility] [address] [place], [address] Erythrocyte distribution width (RBC) [Ratio] 13.5 % Normal 11.6-14.6 [facility] Comment on above: Performed By: #### L 100.0100, L500.4050, L3100.5000, L3130.0010, L3100.3425, L504.2610 ####[facility] [address] [place], [address] Hematocrit (Bld) [Volume fraction] 36.5 % Low 37-47 [facility] Comment on above: Performed By: #### L 100.0100, L500.4050, L3100.5000, L3130.0010, L3100.3425, L504.2610 ####[facility] [address] [place], [address] Hemoglobin (Bld) [Mass/Vol] 11.5 g/dL Low 12.0-15.0 [facility] Comment on above: Performed By: #### L 100.0100, L500.4050, L3100.5000, L3130.0010, L3100.3425, L504.2610 ####[facility] [address] [place], [address] IG% 0.400 Normal 0.0-0.9 [facility] Comment on above: Result Comment: IG% - Immature Granulocytes (promyelocytes, myelocytes andmetamyelocytes) > 1% indicates that a LEFT SHIFT is Present. Performed By: #### L 100.0100, L500.4050, L3100.5000, L3130.0010, L3100.3425, L504.2610 ####[facility] [address] [place], [address] Lymphocytes/100 WBC (Bld) 11.7 % Low 19-41 [facility] Comment on above: Performed By: #### L 100.0100, L500.4050, L3100.5000, L3130.0010, L3100.3425, L504.2610 ####[facility] [address] [place], [address] MCH (RBC) [Entitic mass] 31.3 pg Normal 27.0-32.0 [facility] Comment on above: Performed By: #### L 100.0100, L500.4050, L3100.5000, L3130.0010, L3100.3425, L504.2610 ####[facility] [address] [place], [address] MCHC (RBC) [Mass/Vol] 31.5 g/dL Low 32-36 [facility] Comment on above: Performed By: #### L 100.0100, L500.4050, L3100.5000, L3130.0010, L3100.3425, L504.2610 ####[facility] [address] [place], [address] MCV (RBC) [Entitic vol] 99.2 fL High 81-99 [facility] Comment on above: Performed By: #### L 100.0100, L500.4050, L3100.5000, L3130.0010, L3100.3425, L504.2610 ####[facility] [address] [place], [address] Monocytes/100 WBC (Bld) 6.7 % Normal 0-10 [facility] Comment on above: Performed By: #### L 100.0100, L500.4050, L3100.5000, L3130.0010, L3100.3425, L504.2610 ####[facility] [address] [place], [address] Neutrophils/100 WBC (Bld) 78.9 % High 47-70 [facility] Comment on above: Performed By: #### L 100.0100, L500.4050, L3100.5000, L3130.0010, L3100.3425, L504.2610 ####[facility] [address] [place], [address] Nucleated RBC (Bld) [#/Vol] 0 10*3/uL Normal 0-5 [facility] Comment on above: Performed By: #### L 100.0100, L500.4050, L3100.5000, L3130.0010, L3100.3425, L504.2610 ####[facility] [address] [place], [address] Platelet mean volume (Bld) [Entitic vol] 12.0 fL Normal 6.2-12.0 [facility] Comment on above: Performed By: #### L 100.0100, L500.4050, L3100.5000, L3130.0010, L3100.3425, L504.2610 ####[facility] [address] [place], [address] Platelets (Bld) [#/Vol] 205 10*3/uL Normal 150-450 [facility] Comment on above: Performed By: #### L 100.0100, L500.4050, L3100.5000, L3130.0010, L3100.3425, L504.2610 ####[facility] [address] [place], [address] RBC (Bld) [#/Vol] 3.68 10*6/uL Low 4.2-5.4 [facility] Comment on above: Performed By: #### L 100.0100, L500.4050, L3100.5000, L3130.0010, L3100.3425, L504.2610 ####[facility] [address] [place], [address] RDW SD 50.1 fl High 35.1-43.9 [facility] Comment on above: Performed By: #### L 100.0100, L500.4050, L3100.5000, L3130.0010, L3100.3425, L504.2610 ####[facility] [address] [place], [address] WBC (Bld) [#/Vol] 9.1 10*3/uL Normal 4.4-11.0 [facility] Comment on above: Performed By: #### L 100.0100, L500.4050, L3100.5000, L3130.0010, L3100.3425, L504.2610 ####[facility] [address] [place], [address] Comprehensive Metabolic Prof ilon 09-10-2024 Albumin [Mass/Vol] 3.3 g/dL Normal 3.2-5.0 [facility] Comment on above: Performed By: #### L 100.0100, L500.4050, L3100.5000, L3130.0010, L3100.3425, L504.2610 ####[facility] [address] [place], [address] Albumin/Globulin [Mass ratio] 0.7 {ratio} Low 0.9-2.4 [facility] Comment on above: Performed By: #### L 100.0100, L500.4050, L3100.5000, L3130.0010, L3100.3425, L504.2610 ####[facility] [address] [place], [address] ALK P 100 U/L Normal 45-117 [facility] Comment on above: Performed By: #### L 100.0100, L500.4050, L3100.5000, L3130.0010, L3100.3425, L504.2610 ####[facility] [address] [place], [address] ALT [Catalytic activity/Vol] 16 U/L Normal 13-56 [facility] Comment on above: Performed By: #### L 100.0100, L500.4050, L3100.5000, L3130.0010, L3100.3425, L504.2610 ####[facility] [address] [place], [address] AST [Catalytic activity/Vol] 14 U/L Low 15-37 [facility] Comment on above: Performed By: #### L 100.0100, L500.4050, L3100.5000, L3130.0010, L3100.3425, L504.2610 ####[facility] [address] [place], [address] Bilirubin [Mass/Vol] 0.80 mg/dL Normal 0.20-1.00 [facility] Comment on above: Result Comment: For patients on eltrombopag therapy, use of Dimension Holiday TBIL is not recommended. Performed By: #### L 100.0100, L500.4050, L3100.5000, L3130.0010, L3100.3425, L504.2610 ####[facility] [address] [place], [address] BUN/CRE 13.5 RATIO Normal 10-20 [facility] Comment on above: Performed By: #### L 100.0100, L500.4050, L3100.5000, L3130.0010, L3100.3425, L504.2610 ####[facility] [address] [place], [address] CA,Total 9.9 mg/dL Normal 8.5-10.1 [facility] Comment on above: Performed By: #### L 100.0100, L500.4050, L3100.5000, L3130.0010, L3100.3425, L504.2610 ####[facility] [address] [place], [address] Chloride [Moles/Vol] 104 mmol/L Normal 98-107 [facility] Comment on above: Performed By: #### L 100.0100, L500.4050, L3100.5000, L3130.0010, L3100.3425, L504.2610 ####[facility] [address] [place], [address] CO2 [Moles/Vol] 27.0 mmol/L Normal 21.0-32.0 [facility] Comment on above: Performed By: #### L 100.0100, L500.4050, L3100.5000, L3130.0010, L3100.3425, L504.2610 ####[facility] [address] [place], [address] Creatinine [Mass/Vol] 2.15 mg/dL High 0.55-1.02 [facility] Comment on above: Result Comment: The validity of the calculated GFR GFRAA in patients over70 years has not been determined. Clinical correlation isessential. Performed By: #### L 100.0100, L500.4050, L3100.5000, L3130.0010, L3100.3425, L504.2610 ####[facility] [address] [place], [address] ECRCL 33.86 ml/min Normal [facility] Comment on above: Performed By: #### L 100.0100, L500.4050, L3100.5000, L3130.0010, L3100.3425, L504.2610 ####[facility] [address] [place], [address] EST GFR - AA 29 mL/min Low >60 [facility] Comment on above: Result Comment: Afri can Cambodian GFR Calc Performed By: #### L 100.0100, L500.4050, L3100.5000, L3130.0010, L3100.3425, L504.2610 ####[facility] [address] [place], [address] GAP 8 Normal 5-15 [facility] Comment on above: Performed By: #### L 100.0100, L500.4050, L3100.5000, L3130.0010, L3100.3425, L504.2610 ####[facility] [address] [place], [address] GFR/1.73 sq M.predicted among non-blacks MDRD (S/P/Bld) [Vol rate/Area] 24 mL/min/{1.73_m2} Low >60 [facility] Comment on above: Result Comment: Non- GFR Calc Performed By: #### L 100.0100, L500.4050, L3100.5000, L3130.0010, L3100.3425, L504.2610 ####[facility] [address] [place], [address] Globulin (S) [Mass/Vol] 4.8 g/dL High 2.2-4.2 [facility] Comment on above: Performed By: #### L 100.0100, L500.4050, L3100.5000, L3130.0010, L3100.3425, L504.2610 ####[facility] [address] [place], [address] Glucose [Mass/Vol] 108 mg/dL High 74-106 [facility] Comment on above: Result Comment: Fast ing Glucose result from 100 to 125 mg/dLsuggests IMPAIRED HOMEOSTASIS per A.D.A. criteria. Performed By: #### L 100.0100, L500.4050, L3100.5000, L3130.0010, L3100.3425, L504.2610 ####[facility] [address] [place], [address] Potassium [Moles/Vol] 3.3 mmol/L Low 3.5-5.1 [facility] Comment on above: Performed By: #### L 100.0100, L500.4050, L3100.5000, L3130.0010, L3100.3425, L504.2610 ####[facility] [address] [place], [address] Sodium [Moles/Vol] 139 mmol/L Normal 136-145 [facility] Comment on above: Performed By: #### L 100.0100, L500.4050, L3100.5000, L3130.0010, L3100.3425, L504.2610 ####[facility] [address] [place], [place], [id number] T PROT 8.1 g/dL Normal 6.4-8.2 [facility] Comment on above: Performed By: #### L 100.0100, L500.4050, L3100.5000, L3130.0010, L3100.3425, L504.2610 ####[facility] [address] [place], [address] Urea nitrogen [Mass/Vol] 29 mg/dL High 7-18 [facility] Comment on above: Performed By: #### L 100.0100, L500.4050, L3100.5000, L3130.0010, L3100.3425, L504.2610 ####[facility] [address] [place], [address] Interpretation of serum or p lasma protein pattern by immunofixation (narrative resultOrdered By: David Corral on 09-10-2024 Protein Fractions Immunofixation Rodrick [Interp] Not Observed g/dL Not Observed [facility] LDHon 09-10-2024 LDH 158 U/L Normal 84-246 [facility] Comment on above: Order Comment: 1 Performed By: #### L 100.0100, L500.4050, L3100.5000, L3130.0010, L3100.3425, L504.2610 ####[facility] [address] [place], [place], [id number] No Panel InformationOrdered By: David Corral on 09-10-2024 Addendum Document Comment . [facility] Comment on above: Protein electrophore sis scan will follow via computer,mail, or jr. systems administrator delivery. Oncology Visit Reporton 08-30 Oncology Visit Report Normal [facility] Serum immunoglobulin kappa l ight chains/immunoglobulin lambda light chains mass ratioOrdered By: David Corral on 09-10-2024 Immunoglobulin light chains.kappa/Immunoglobu nisa light chains.lambda (S) [Mass ratio] 2.31 High 0.26-1.65 [facility] Serum or plasma IgA measurem ent (mass/volume)Ordered By: [facility] on 09-10-2024 IgA [Mass/Vol] 327 mg/dL 87-352 [facility] Serum or plasma IgG measurem ent (mass/volume)Ordered By: David Ellis on 09-10-2024 IgG [Mass/Vol] 1492 mg/dL 586-1602 [facility] Serum or plasma alpha 1 glob ulin measurement by electrophoresis (mass/volume)Ordered By: David Cande on 09-10-2024 Alpha 1 globulin Elph [Mass/Vol] 0.4 g/dL 0.0-0.4 [facility] Alpha 1 globulin Elph [Mass/Vol] 0.9 g/dL 0.4-1.0 [facility] Serum or plasma beta globuli n measurement by electrophoresis (mass/volume)Ordered By: [facility] on 09-10-2024 Beta globulin Elph [Mass/Vol] 1.2 g/dL 0.7-1.3 [facility] Serum or plasma gamma globul in measurement by electrophoresis (mass/volume)Ordered By: [facility] on 09-10-2024 Gamma globulin Elph [Mass/Vol] 1.4 g/dL 0.4-1.8 [facility] Serum or plasma immunoelectr ophoresis interpretation (nominal result)Ordered By: David Ellis on 09-10-2024 Interpretation IEP [Interp] Comment . [facility] Comment on above: No monoclonality det ected. Serum or plasma immunoglobul in kappa light chains measurement (mass/volume)Ordered By: David Corral on 09-10-2024 Immunoglobulin light chains.kappa [Mass/Vol] 107.4 mg/L High 3.3-19.4 [facility] Serum or plasma protein addie urement (mass/volume)Ordered By: [facility] on 09-10-2024 Protein [Mass/Vol] 7.3 g/dL 6.0-8.5 [facility] Basic Metabolic Profile (BMP )on 09-03-2024 BUN/CRE 13.0 RATIO Normal 10-20 [facility] Comment on above: Performed By: #### L 501.9985, L500.2500 ####[facility] [address] [place], [address] CA,Total 9.4 mg/dL Normal 8.5-10.1 [facility] Comment on above: Performed By: #### L 501.9985, L500.2500 ####[facility] [address] [place], [address] Chloride [Moles/Vol] 103 mmol/L Normal 98-107 [facility] Comment on above: Performed By: #### L 501.9985, L500.2500 ####[facility] [address] [place], [address] CO2 [Moles/Vol] 28.0 mmol/L Normal 21.0-32.0 [facility] Comment on above: Performed By: #### L 501.9985, L500.2500 ####[facility] [address] [place], [address] Creatinine [Mass/Vol] 2.70 mg/dL High 0.55-1.02 [facility] Comment on above: Result Comment: The validity of the calculated GFR GFRAA in patients over70 years has not been determined. Clinical correlation isessential. Performed By: #### L 501.9985, L500.2500 ####[facility] [address] [place], [address] EST GFR - AA 23 mL/min Low >60 [facility] Comment on above: Result Comment: Afri can Cambodian GFR Calc Performed By: #### L 501.9985, L500.2500 ####[facility] [address] [place], [address] GAP 9 Normal 5-15 [facility] Comment on above: Performed By: #### L 501.9985, L500.2500 ####[facility] [address] [place], [address] GFR/1.73 sq M.predicted among non-blacks MDRD (S/P/Bld) [Vol rate/Area] 19 mL/min/{1.73_m2} Low >60 [facility] Comment on above: Result Comment: Non- GFR Calc Performed By: #### L 501.9985, L500.2500 ####[facility] [address] [place], [address] Glucose [Mass/Vol] 104 mg/dL Normal 74-106 [facility] Comment on above: Result Comment: Fast ing Glucose result from 100 to 125 mg/dLsuggests IMPAIRED HOMEOSTASIS per A.D.A. criteria. Performed By: #### L 501.9985, L500.2500 ####[facility] [address] [place], [address] Potassium [Moles/Vol] 3.8 mmol/L Normal 3.5-5.1 [facility] Comment on above: Performed By: #### L 501.9985, L500.2500 ####[facility] [address] [place], [address] Sodium [Moles/Vol] 140 mmol/L Normal 136-145 [facility] Comment on above: Performed By: #### L 501.9985, L500.2500 ####[facility] [address] [place], [address] Urea nitrogen [Mass/Vol] 35 mg/dL High 7-18 [facility] Comment on above: Performed By: #### L 501.9985, L500.2500 ####[facility] [address] [place], [address] Carbon dioxide measurementOr dered By: Stephie Velarde on 09-03-2024 CO2 [Moles/Vol] 28.0 mmol/L 21.0-32.0 [facility] Chloride measurementOrdered By: Stephie Velarde on 09-03-2024 Chloride [Moles/Vol] 103 mmol/L 98-107 [facility] Glomerular filtration rate ( GFR) estimationOrdered By: Stephie Velarde on 09-03-2024 GFR/1.73 sq M.predicted among non-blacks MDRD (S/P/Bld) [Vol rate/Area] 19 mL/min/{1.73_m2} Low >60 [facility] Glucose measurementOrdered B y: Stephie Velarde on 09-03-2024 Glucose [Mass/Vol] 104 mg/dL 74-106 [facility] Hemoglobin A1con 09-03-2024 HbA1c (Bld) [Mass fraction] 5.0 % Normal 3.8-5.6 [facility] Comment on above: Result Comment: Norm al < 5.7 % Prediabetic 5.7 - 6.4 % Diabetic >or= 6.5 % Please note range changes. Performed By: #### L 501.9985, L500.2500 ####[facility] [address] [place], [place], [address] Hemoglobin A1c percentageOrd ered By: Stephie Velarde on 09-03-2024 HbA1c (Bld) [Mass fraction] 5.0 % 3.8-5.6 [facility] Internal Medicine Office Vis iton 09-03-2024 Internal Medicine Office Visit Normal [facility] Potassium measurementOrdered By: Stephie Velarde on 09-03-2024 Potassium [Moles/Vol] 3.8 mmol/L 3.5-5.1 [facility] Serum or plasma calcium addie urement (mass/volume)Ordered By: Stephie Velarde on 09-03-2024 Calcium [Mass/Vol] 9.4 mg/dL 8.5-10.1 [facility] Serum or plasma creatinine m easurement (mass/volume)Ordered By: Stephie Velarde on 09-03-2024 Creatinine [Mass/Vol] 2.70 mg/dL High 0.55-1.02 [facility] Serum or plasma urea nitroge n measurement (mass/volume)Ordered By: Stephie Velarde on 09-03-2024 Urea nitrogen [Mass/Vol] 35 mg/dL High 7-18 [facility] Sodium levelOrdered By: Mason Velarde on 09-03-2024 Sodium [Moles/Vol] 140 mmol/L 136-145 [facility] D/C Summary- SPon 07-29-2024 D/C Summary- SP Normal [facility] Cancer Antigen 125on 024 CA 125 25.1 U/mL Normal 0.0-38.1 [facility] Comment on above: Result Comment: [facility] [employer] Electrochemiluminescence Immunoassay(ECLIA)Values obtained with different assay methods or kits cannotbe used interchangeably. Results cannot be interpreted asabsolute evidence of the presence or absence of malignantdisease.Performed at: [facility] [place] [id number] Director: Joe Olivier PhD, Phone: [phone] Performed By: #### L 504.2610, L503.6550, L3100.5000, L100.0100 ####[facility] [address] [place], [address] CBC W/Diff, Automatedon 05-30 Absolute Lymph 1.57 X10 3/uL Normal 0.83-4.51 [facility] Comment on above: Performed By: #### L 504.2610, L503.6550, L3100.5000, L100.0100 ####[facility] [address] [place], [address] Absolute Neut 5.1 X10 3/uL Normal 2.0-7.7 [facility] Comment on above: Performed By: #### L 504.2610, L503.6550, L3100.5000, L100.0100 ####[facility] [address] [place], [address] Basophils/100 WBC (Bld) 0.5 % Normal 0-1 [facility] Comment on above: Performed By: #### L 504.2610, L503.6550, L3100.5000, L100.0100 ####[facility] [address] [place], [address] Eosinophils/100 WBC (Bld) 5.5 % High 0-5 [facility] Comment on above: Performed By: #### L 504.2610, L503.6550, L3100.5000, L100.0100 ####[facility] [address] [place], [address] Erythrocyte distribution width (RBC) [Ratio] 14.7 % High 11.6-14.6 [facility] Comment on above: Performed By: #### L 504.2610, L503.6550, L3100.5000, L100.0100 ####[facility] [address] [place], [address] Hematocrit (Bld) [Volume fraction] 34.5 % Low 37-47 [facility] Comment on above: Performed By: #### L 504.2610, L503.6550, L3100.5000, L100.0100 ####[facility] [address] [place], [address] Hemoglobin (Bld) [Mass/Vol] 11.1 g/dL Low 12.0-15.0 [facility] Comment on above: Performed By: #### L 504.2610, L503.6550, L3100.5000, L100.0100 ####[facility] [address] [place], [address] IG% 0.400 Normal 0.0-0.9 [facility] Comment on above: Result Comment: IG% - Immature Granulocytes (promyelocytes, myelocytes andmetamyelocytes) > 1% indicates that a LEFT SHIFT is Present. Performed By: #### L 504.2610, L503.6550, L3100.5000, L100.0100 ####[facility] [address] [place], [address] Lymphocytes/100 WBC (Bld) 20.2 % Normal 19-41 [facility] Comment on above: Performed By: #### L 504.2610, L503.6550, L3100.5000, L100.0100 ####[facility] [address] [place], [address] MCH (RBC) [Entitic mass] 32.3 pg High 27.0-32.0 [facility] Comment on above: Performed By: #### L 504.2610, L503.6550, L3100.5000, L100.0100 ####[facility] [address] [place], [address] MCHC (RBC) [Mass/Vol] 32.2 g/dL Normal 32-36 [facility] Comment on above: Performed By: #### L 504.2610, L503.6550, L3100.5000, L100.0100 ####[facility] [address] [place], [address] MCV (RBC) [Entitic vol] 100.3 fL High 81-99 [facility] Comment on above: Performed By: #### L 504.2610, L503.6550, L3100.5000, L100.0100 ####[facility] [address] [place], [address] Monocytes/100 WBC (Bld) 8.1 % Normal 0-10 [facility] Comment on above: Performed By: #### L 504.2610, L503.6550, L3100.5000, L100.0100 ####[facility] [address] [place], [address] Neutrophils/100 WBC (Bld) 65.3 % Normal 47-70 [facility] Comment on above: Performed By: #### L 504.2610, L503.6550, L3100.5000, L100.0100 ####[facility] [address] [place], [address] Nucleated RBC (Bld) [#/Vol] 0 10*3/uL Normal 0-5 [facility] Comment on above: Performed By: #### L 504.2610, L503.6550, L3100.5000, L100.0100 ####[facility] [address] [place], [address] Platelet mean volume (Bld) [Entitic vol] 11.8 fL Normal 6.2-12.0 [facility] Comment on above: Performed By: #### L 504.2610, L503.6550, L3100.5000, L100.0100 ####[facility] [address] [place], [address] Platelets (Bld) [#/Vol] 195 10*3/uL Normal 150-450 [facility] Comment on above: Performed By: #### L 504.2610, L503.6550, L3100.5000, L100.0100 ####[facility] [address] [place], [address] RBC (Bld) [#/Vol] 3.44 10*6/uL Low 4.2-5.4 [facility] Comment on above: Performed By: #### L 504.2610, L503.6550, L3100.5000, L100.0100 ####[facility] [address] [place], [address] RDW SD 54.9 fl High 35.1-43.9 [facility] Comment on above: Performed By: #### L 504.2610, L503.6550, L3100.5000, L100.0100 ####[facility] [address] [place], [address] WBC (Bld) [#/Vol] 7.8 10*3/uL Normal 4.4-11.0 [facility] Comment on above: Performed By: #### L 504.2610, L503.6550, L3100.5000, L100.0100 ####[facility] [address] [place], [address] Comprehensive Metabolic Prof ilon 06-12-2024 Albumin [Mass/Vol] 3.5 g/dL Normal 3.2-5.0 [facility] Comment on above: Performed By: #### L 501.9985, L500.4050, L500.4100, L503.6030 ####[facility] [address] [place], [address] Albumin/Globulin [Mass ratio] 0.8 {ratio} Low 0.9-2.4 [facility] Comment on above: Performed By: #### L 501.9985, L500.4050, L500.4100, L503.6030 ####[facility] [address] [place], [address] ALK P 121 U/L High 45-117 [facility] Comment on above: Performed By: #### L 501.9985, L500.4050, L500.4100, L503.6030 ####[facility] [address] [place], [address] ALT [Catalytic activity/Vol] 16 U/L Normal 13-56 [facility] Comment on above: Performed By: #### L 501.9985, L500.4050, L500.4100, L503.6030 ####[facility] [address] [place], [address] AST [Catalytic activity/Vol] 19 U/L Normal 15-37 [facility] Comment on above: Performed By: #### L 501.9985, L500.4050, L500.4100, L503.6030 ####[facility] [address] [place], [address] Bilirubin [Mass/Vol] 0.30 mg/dL Normal 0.20-1.00 [facility] Comment on above: Result Comment: For patients on eltrombopag therapy, use of Dimension Holiday TBIL is not recommended. Performed By: #### L 501.9985, L500.4050, L500.4100, L503.6030 ####[facility] [address] [place], [address] BUN/CRE 21.6 RATIO High 10-20 [facility] Comment on above: Performed By: #### L 501.9985, L500.4050, L500.4100, L503.6030 ####[facility] [address] [place], [address] CA,Total 9.4 mg/dL Normal 8.5-10.1 [facility] Comment on above: Performed By: #### L 501.9985, L500.4050, L500.4100, L503.6030 ####[facility] [address] [place], [address] Chloride [Moles/Vol] 107 mmol/L Normal 98-107 [facility] Comment on above: Performed By: #### L 501.9985, L500.4050, L500.4100, L503.6030 ####[facility] [address] [place], [address] CO2 [Moles/Vol] 28.0 mmol/L Normal 21.0-32.0 [facility] Comment on above: Performed By: #### L 501.9985, L500.4050, L500.4100, L503.6030 ####[facility] [address] [place], [address] Creatinine [Mass/Vol] 1.90 mg/dL High 0.55-1.02 [facility] Comment on above: Result Comment: The validity of the calculated GFR GFRAA in patients over70 years has not been determined. Clinical correlation isessential. Performed By: #### L 501.9985, L500.4050, L500.4100, L503.6030 ####[facility] [address] [place], [address] ECRCL 38.31 ml/min Normal [facility] Comment on above: Performed By: #### L 501.9985, L500.4050, L500.4100, L503.6030 ####[facility] [address] [place], [address] EST GFR - AA 34 mL/min Low >60 [facility] Comment on above: Result Comment: Afri can Cambodian GFR Calc Performed By: #### L 501.9985, L500.4050, L500.4100, L503.6030 ####[facility] [address] [place], [address] GAP 6 Normal 5-15 [facility] Comment on above: Performed By: #### L 501.9985, L500.4050, L500.4100, L503.6030 ####[facility] [address] [place], [address] GFR/1.73 sq M.predicted among non-blacks MDRD (S/P/Bld) [Vol rate/Area] 28 mL/min/{1.73_m2} Low >60 [facility] Comment on above: Result Comment: Non- GFR Calc Performed By: #### L 501.9985, L500.4050, L500.4100, L503.6030 ####[facility] [address] [place], [address] Globulin (S) [Mass/Vol] 4.4 g/dL High 2.2-4.2 [facility] Comment on above: Performed By: #### L 501.9985, L500.4050, L500.4100, L503.6030 ####[facility] [address] [place], [address] Glucose [Mass/Vol] 107 mg/dL High 74-106 [facility] Comment on above: Result Comment: Fast ing Glucose result from 100 to 125 mg/dLsuggests IMPAIRED HOMEOSTASIS per A.D.A. criteria. Performed By: #### L 501.9985, L500.4050, L500.4100, L503.6030 ####[facility] [address] [place], [address] Potassium [Moles/Vol] 3.6 mmol/L Normal 3.5-5.1 [facility] Comment on above: Performed By: #### L 501.9985, L500.4050, L500.4100, L503.6030 ####[facility] [address] [place], [address] Sodium [Moles/Vol] 141 mmol/L Normal 136-145 [facility] Comment on above: Performed By: #### L 501.9985, L500.4050, L500.4100, L503.6030 ####[facility] [address] [place], [address] T PROT 7.9 g/dL Normal 6.4-8.2 [facility] Comment on above: Performed By: #### L 501.9985, L500.4050, L500.4100, L503.6030 ####[facility] [address] [place], [address] Urea nitrogen [Mass/Vol] 41 mg/dL High 7-18 [facility] Comment on above: Performed By: #### L 501.9985, L500.4050, L500.4100, L503.6030 ####[facility] [address] [place], [address] Ferritinon 06-12-2024 Ferritin [Mass/Vol] 1219 ng/mL High 8-252 [facility] Comment on above: Order Comment: 1 Performed By: #### L 504.2610, L503.6550, L3100.5000, L100.0100 ####[facility] [address] [place], [place], [address] Hemoglobin A1con 06-12-2024 HbA1c (Bld) [Mass fraction] 5.4 % Normal 3.8-5.6 [facility] Comment on above: Result Comment: Norm al < 5.7 % Prediabetic 5.7 - 6.4 % Diabetic >or= 6.5 % Please note range changes. Performed By: #### L 501.9985, L500.4050, L500.4100, L503.6030 ####[facility] [address] [place], [place], [address] Hemoglobin A1c percentageOrd ered By: Stephie Velarde on 06-12-2024 HbA1c (Bld) [Mass fraction] 5.4 % 3.8-5.6 [facility] Comment on above: Normal < 5.7 % Predi abetic 5.7 - 6.4 % Diabetic >or= 6.5 % Please note range changes. High density lipoprotein (HD L) measurementOrdered By: Stephie Velarde on 06-12-2024 Cholesterol in HDL [Mass/Vol] 56 mg/dL >40 [facility] Comment on above: The drugs N-Acetylcy steine and Metamizole may falsely depress this assay. Reference Range HDL <40 mg/dL Low HDL Cholesterol HDL >or= 60 mg/dL High HDL Cholesterol High density lipoprotein (HDL) measurement 56 mg/dL >40 [facility] Internal Medicine Office Vis iton 06-12-2024 Internal Medicine Office Visit Normal [facility] Iron measurement (mass/mass) Ordered By: David Corral on 06-12-2024 Iron (Unsp spec) [Mass/Mass] 54 ug/dL 50-170 [facility] Iron+Iron Binding Capacityon 06-12-2024 Iron [Mass/Vol] 54 ug/dL Normal 50-170 [facility] Comment on above: Performed By: #### L 501.9985, L500.4050, L500.4100, L503.6030 ####[facility] [address] [place], [address] IRON SATURATION 23.8 Normal 15.0-55.0 [facility] Comment on above: Performed By: #### L 501.9985, L500.4050, L500.4100, L503.6030 ####[facility] [address] [place], [address] TIBC 227 ug/dL Low 250-450 [facility] Comment on above: Performed By: #### L 501.9985, L500.4050, L500.4100, L503.6030 ####[facility] [address] [place], [address] LDHon 06-12-2024 LDH 172 U/L Normal 84-246 [facility] Comment on above: Order Comment: 1 Performed By: #### L 504.2610, L503.6550, L3100.5000, L100.0100 ####[facility] [address] [place], [address] Lipid Profileon 06-12-2024 Cholesterol [Mass/Vol] 222 mg/dL High 200 [facility] Comment on above: Result Comment: <200 mg/dL Desirable 200-240 mg/dL Borderline >240 mg/dL High Risk Performed By: #### L 501.9985, L500.4050, L500.4100, L503.6030 ####[facility] [address] [place], [address] Cholesterol in HDL [Mass/Vol] 56 mg/dL Normal [facility] Comment on above: Result Comment: The drugs N-Acetylcysteine and Metamizole may falselydepress this assay. Reference Range HDL <40 mg/dL Low HDL Cholesterol HDL >or= 60 mg/dL High HDL Cholesterol Performed By: #### L 501.9985, L500.4050, L500.4100, L503.6030 ####[facility] [address] [place], [address] Cholesterol in LDL [Mass/Vol] 146 mg/dL High 0-130 [facility] Comment on above: Performed By: #### L 501.9985, L500.4050, L500.4100, L503.6030 ####[facility] [address] [place], [address] Cholesterol in VLDL [Mass/Vol] 20 mg/dL Normal 5-40 [facility] Comment on above: Performed By: #### L 501.9985, L500.4050, L500.4100, L503.6030 ####[facility] [address] [place], [address] Triglyceride [Mass/Vol] 100 mg/dL Normal [facility] Comment on above: Result Comment: The drugs N-Acetylcysteine and Metamizole may falselydepress this assay.Serum Triglycerides Reference Interval Normal <150 mg/dL Borderline high 150 - 199 mg/dL High 200 - 499 mg/dL Very High > or = 500 mg/dL Performed By: #### L 501.9985, L500.4050, L500.4100, L503.6030 ####[facility] [address] [place], [address] Low density lipoprotein (LDL ) cholesterol measurementOrdered By: Stephie Velarde on 06-12-2024 Cholesterol in LDL [Mass/Vol] 146 mg/dL High 0-130 [facility] Low density lipoprotein (LDL) cholesterol measurement 146 mg/dL High 0-130 [facility] Oncology Visit Reporton 05-30 Oncology Visit Report Normal [facility] Serum or plasma cholesterol measurement (mass/volume)Ordered By: Stephie Velarde on 06-12-2024 Cholesterol [Mass/Vol] 222 mg/dL High <200 [facility] Comment on above: <200 mg/dL Desirable 200-240 mg/dL Borderline >240 mg/dL High Risk Serum or plasma iron saturat ion measurement (mass fraction)Ordered By: David Corral on 06-12-2024 Iron saturation [Mass fraction] 23.8 % 15.0-55.0 [facility] Triglycerides measurementOrd ered By: Stephie Velarde on 06-12-2024 Triglyceride [Mass/Vol] 100 mg/dL <199 [facility] Comment on above: The drugs N-Acetylcy steine and Metamizole may falsely depress this assay.Serum Triglycerides Reference Interval Normal <150 mg/dL Borderline high 150 - 199 mg/dL High 200 - 499 mg/dL Very High > or = 500 mg/dL Very low density lipoprotein (VLDL) cholesterol measurementOrdered By: Stephie Velarde on 06-12-2024 Very low density lipoprotein (VLDL) cholesterol measurement 20 mg/dL 5-40 [facility] C-reactive protein measureme nt by high sensitivity methodOrdered By: David Corral on 03-20-2024 C-reactive protein measurement by high sensitivity method 44.30 mg/L High 0.0-3.0 [facility] Comment on above: C-Reactive Protein ( CRP) provides useful information for thediagnosis, therapy and monitoring of inflammatory processesand associated diseases. For the evaluation of Relative Riskfor Cardiovascular Disease, a High Sensitivity CRP (HSCRP)should be ordered. Erythrocyte sedimentation ra teOrdered By: David Corral on 03-20-2024 ESR (Bld) [Velocity] 64 mm/h High 0-30 [facility] CNCOon 12-26-2023 CNC HNO ID: [id number] Author: COORDINATOR, MAMMOGRAPHY, ? Service: ? Author Type: Physician Type: Letter Filed: 12/26/2023 21:58 Note Text: December 27, 2023 PID: [id number] Britta Young [address] [place] [address] Dear Ms. Young, We are pleased to inform you that the results of your recent breast imaging exam on 12/26/2023 are normal. Early detection of cancer is very important. We also understand recommendations regarding breast cancer screening are controversial. Please discuss with your primary care provider which strategy is best for you and whether a mammogram is right for you. Your imaging studies and report will be kept on file at [facility] as part of your permanent medical record and are available for your continuing care. Thank you for allowing us to help in meeting your health care needs. Sincerely, Dr. Adler Interpreting Radiologist [facility] (Normal over 40) Normal [facility] DBT Breast - bilateral sofia soler 12-26-2023 IMPRESSION: BENIGN FINDING There is no mammographic evidence of malignancy. A 1 year screening mammogram is recommended. Caroline Adler M.D. rs/sony:12/26/2023 21:58:10 Lacquer Polisher(s): Mariza Galvez RT(R)(M), [facility] letter sent: Normal over 40 Mammogram BI-RADS: 2 Benign finding Multiple national specialty organizations have released breast cancer screening guidelines for women at average risk for developing breast cancer - guidelines that are based on both evidence and opinion, yet differ on when to start and how often to screen for breast cancer. With representation from Breast Imaging, Internal Medicine, Women's Health, Family Medicine, and Medical/Surgical Oncology, the [facility] has carefully reviewed the data and reached the following consensus: 1) All women should engage in shared decision-making with their providers to decide when to start and how often to screen; 2) All women should have the opportunity to start screening mammography at age 40; 3) For women ages 45-55, we recommend annual screening mammograms; 4) For women ages 55 and over, we support both the transition from an annual to a biennial interval if this aligns more with patient's values and preferences, or continuation with annual screening; 5) All women should discuss with their providers when to stop screening mammograms. Chief Wharfinger: Sony Transcribe Date/Time: Dec 26 2023 3:58P Dictated by: CAROLINE ADLER MD This examination was interpreted and the report reviewed and electronically signed by: CAROLINE ADLER MD on Dec 26 2023 9:58PM [facility] DIVISION OF RADIOLOGY * * *Final Report* * * DATE OF EXAM: Dec 26 2023 4:27PM W [id number] - [facility] SCREENING W BUDDY / PROCEDURE REASON: breast screening * * * * Physician Interpretation * * * * RESULT: #[id number] - [facility] SCREENING W BUDDY BILATERAL DIGITAL SCREENING MAMMOGRAM TOMOSYNTHESIS WITH CAD: 12/26/2023 HISTORY: Breast Screening / Screening Mammogram-Patient reports NO symptoms. /priors available for comparison /SEE TECH NOTE. RESULT: TECHNIQUE: The study was acquired using full field digital technology and interpreted from soft copy. Digital Breast Tomosynthesis (DBT) images were obtained and used to assist in the interpretation of this examination. Current study was also evaluated with a Computer Aided Detection (CAD). Comparison is made to exams dated: 06/05/2022 mammogram and 01/06/2021 mammogram - [facility]. There are scattered areas of fibroglandular density. The study is suboptimal in positioning due to the patient's factors. There are benign calcifications in both breasts. No significant masses, calcifications, or other findings are seen in either breast. There has been no significant interval change. DIVISION OF RADIOLOGY Provider, [facility] - 12/26/2023 * * *Final Report* * * DATE OF EXAM: Dec 26 2023 4:27PM WRW 0582 - [facility] SCREENING W BUDDY / PROCEDURE REASON: breast screening * * * * Physician Interpretation * * * * RESULT: #[id number] - [facility] SCREENING W BUDDY BILATERAL DIGITAL SCREENING MAMMOGRAM TOMOSYNTHESIS WITH CAD: 12/26/2023 HISTORY: Breast Screening / Screening Mammogram-Patient reports NO symptoms. /priors available for comparison /SEE TECH NOTE. RESULT: TECHNIQUE: The study was acquired using full field digital technology and interpreted from soft copy. Digital Breast Tomosynthesis (DBT) images were obtained and used to assist in the interpretation of this examination. Current study was also evaluated with a Computer Aided Detection (CAD). Comparison is made to exams dated: 06/05/2022 mammogram and 01/06/2021 mammogram - [facility]. There are scattered areas of fibroglandular density. The study is suboptimal in positioning due to the patient's factors. There are benign calcifications in both breasts. No significant masses, calcifications, or other findings are seen in either breast. There has been no significant interval change. IMPRESSION IMPRESSION: BENIGN FINDING There is no mammographic evidence of malignancy. A 1 year screening mammogram is recommended. Caroline Adler M.D. rs/penrad:12/26/2023 21:58:10 Lacquer Polisher(s): RT Hernesto(R)(M), [facility] letter sent: Normal over 40 Mammogram BI-RADS: 2 Benign finding Multiple national specialty organizations have released breast cancer screening guidelines for women at average risk for developing breast cancer - guidelines that are based on both evidence and opinion, yet differ on when to start and how often to screen for breast cancer. With representation from Breast Imaging, Internal Medicine, Women's Health, Family Medicine, and Medical/Surgical Oncology, the [facility] has carefully reviewed the data and reached the following consensus: 1) All women should engage in shared decision-making with their providers to decide when to start and how often to screen; 2) All women should have the opportunity to start screening mammography at age 40; 3) For women ages 45-55, we recommend annual screening mammograms; 4) For women ages 55 and over, we support both the transition from an annual to a biennial interval if this aligns more with patient's values and preferences, or continuation with annual screening; 5) All women should discuss with their providers when to stop screening mammograms. Chief Wharfinger: Sony Transcribe Date/Time: Dec 26 2023 3:58P Dictated by: CAROLINE ADLER MD This examination was interpreted and the report reviewed and electronically signed by: CAROLINE ADLER MD on Dec 26 2023 9:58PM EST [facility] Radiology [facility]narrative[facility] DBT Breast - bilateral scree ningOrdered By: Ccjarrod Provider on 12-26-2023 [facility] DEMARCUS SCREENING W TOMOon 12-25 [facility] SCREENING W BUDDY * * *Final Report* * * DATE OF EXAM: Dec 26 2023 4:27PM [facility] 0582 - [facility] SCREENING W BUDDY / PROCEDURE REASON: breast screening * * * * Physician Interpretation * * * * RESULT: #[id number] - [facility] SCREENING W BUDDY BILATERAL DIGITAL SCREENING MAMMOGRAM TOMOSYNTHESIS WITH CAD: 12/26/2023 HISTORY: Breast Screening / Screening Mammogram-Patient reports NO symptoms. /priors available for comparison /SEE TECH NOTE. RESULT: TECHNIQUE: The study was acquired using full field digital technology and interpreted from soft copy. Digital Breast Tomosynthesis (DBT) images were obtained and used to assist in the interpretation of this examination. Current study was also evaluated with a Computer Aided Detection (CAD). Comparison is made to exams dated: 06/05/2022 mammogram and 01/06/2021 mammogram - [facility]. There are scattered areas of fibroglandular density. The study is suboptimal in positioning due to the patient's factors. There are benign calcifications in both breasts. No significant masses, calcifications, or other findings are seen in either breast. There has been no significant interval change. IMPRESSION: BENIGN FINDING There is no mammographic evidence of malignancy. A 1 year screening mammogram is recommended. Caroline puga/sony:12/26/2023 21:58:10 Lacquer Polisher(s): RT Hernesto(R)(M), [facility] letter sent: Normal over 40 Mammogram BI-RADS: 2 Benign finding Multiple national specialty organizations have released breast cancer screening guidelines for women at average risk for developing breast cancer - guidelines that are based on both evidence and opinion, yet differ on when to start and how often to screen for breast cancer. With representation from Breast Imaging, Internal Medicine, Women's Health, Family Medicine, and Medical/Surgical Oncology, the [facility] has carefully reviewed the data and reached the following consensus: 1) All women should engage in shared decision-making with their providers to decide when to start and how often to screen; 2) All women should have the opportunity to start screening mammography at age 40; 3) For women ages 45-55, we recommend annual screening mammograms; 4) For women ages 55 and over, we support both the transition from an annual to a biennial interval if this aligns more with patient's values and preferences, or continuation with annual screening; 5) All women should discuss with their providers when to stop screening mammograms. Chief Wharfinger: Sony Transcribe Date/Time: Dec 26 2023 3:58P Dictated by: CAROLINE ADLER MD This examination was interpreted and the report reviewed and electronically signed by: CAROLINE ADLER MD on Dec 26 2023 9:58PM EST [id number] Normal [facility] Absolute lymphocyte countOrd ered By: David Corral on 11-29-2023 Lymphocytes Auto (Unsp spec) [#/Vol] 1.27 10*3/uL 0.83-4.51 [facility] Automated lymphocyte count a s percentage of total leukocytesOrdered By: David Corral on 11-29-2023 Lymphocytes/100 WBC Auto (Unsp spec) 15.7 % 19-41 [facility] Basophil percentageOrdered B y: David Corral on 11-29-2023 Basophils/100 WBC (Bld) 0.4 % 0-1 [facility] Bilirubin [Mass/Vol] 0.40 mg/dL 0.20-1.00 [facility] Comment on above: For patients on eltr ombopag therapy, use of Dimension Holiday TBIL is not recommended. Chloride [Moles/Vol] 105 mmol/L 98-107 [facility] Eosinophils/100 WBC (Bld) 4.6 % 0-5 [facility] Glucose [Mass/Vol] 118 mg/dL 74-106 [facility] Comment on above: Fasting Glucose resu lt from 100 to 125 mg/dL suggests IMPAIRED HOMEOSTASIS per A.D.A. criteria. Hemoglobin (Bld) [Mass/Vol] 11.1 g/dL 12.0-15.0 [facility] LDH [Catalytic activity/Vol] 176 U/L 84-246 [facility] Monocytes/100 WBC (Bld) 8.8 % 0-10 [facility] Neutrophils (Bld) [#/Vol] 5.7 10*3/uL 2.0-7.7 [facility] Neutrophils/100 WBC (Bld) 70.0 % 47-70 [facility] Potassium [Moles/Vol] 3.8 mmol/L 3.5-5.1 [facility] Protein [Mass/Vol] 8.0 g/dL 6.4-8.2 [facility] Sodium [Moles/Vol] 140 mmol/L 136-145 [facility] WBC (Bld) [#/Vol] 8.1 10*3/uL 4.4-11.0 [facility] Determination of erythrocyte mean corpuscular volume (MCV)Ordered By: David Corral on 11-29-2023 MCV (RBC) [Entitic vol] 98.9 fL 81-99 [facility] Erythrocyte distribution wid th ratioOrdered By: David Corral on 11-29-2023 Erythrocyte distribution width (RBC) [Ratio] 14.4 % 11.6-14.6 [facility] Erythrocyte distribution wid th standard deviationOrdered By: David Corral on 11-29-2023 Erythrocyte distribution width (RBC) [Entitic vol] 52.5 fL 35.1-43.9 [facility] Hematocrit Auto (Bld) [Volum e fraction]Ordered By: David Corral on 11-29-2023 Hematocrit (Bld) [Volume fraction] 35.6 % 37-47 [facility] Immature granulocytes/100 WB C Auto (Bld)Ordered By: David Corral on 11-29-2023 Immature granulocytes/100 WBC (Bld) 0.500 % 0.0-0.9 [facility] Comment on above: IG% - Immature Granu locytes (promyelocytes, myelocytes and metamyelocytes) > 1% indicates that a LEFT SHIFT is Present. Laboratory - Chemistry and C hemistry - challengeOrdered By: David Corral on 11-29-2023 Albumin/Globulin [Mass ratio] 0.9 {ratio} 0.9-2.4 [facility] ALP [Catalytic activity/Vol] 129 U/L 45-117 [facility] ALT [Catalytic activity/Vol] 16 U/L 13-56 [facility] CO2 [Moles/Vol] 28.0 mmol/L 21.0-32.0 [facility] Globulin (S) [Mass/Vol] 4.3 g/dL 2.2-4.2 [facility] Urea nitrogen/Creatinine [Mass ratio] 18.1 mg/mg 10-20 [facility] Laboratory - Hematology and Cell countsOrdered By: David Corral on 11-29-2023 MCH (RBC) [Entitic mass] 30.8 pg 27.0-32.0 [facility] MCHC (RBC) [Mass/Vol] 31.2 g/dL 32-36 [facility] Nucleated RBC/100 WBC (Bld) [Ratio] 0 % 0-5 [facility] Platelet mean volume (Bld) [Entitic vol] 12.1 fL 6.2-12.0 [facility] Platelets (Bld) [#/Vol] 200 10*3/uL 150-450 [facility] No Panel InformationOrdered By: David Corral on 11-29-2023 Estimated Creatinine Clearance Calc 31.18 ml/min [facility] Estimated GFR (MDRD) Amer 29 mL/min >60 [facility] Comment on above: GFR Calc Estimated GFR (MDRD) Non-Af Amer 24 mL/min >60 [facility] Comment on above: Non- GFR Calc RBC Auto (Bld) [#/Vol]Ordere d By: David Corral on 11-29-2023 RBC (Bld) [#/Vol] 3.60 10*6/uL 4.2-5.4 [facility] Serum or plasma calcium addie urement (mass/volume)Ordered By: David Corral on 11-29-2023 Calcium [Mass/Vol] 9.5 mg/dL 8.5-10.1 [facility] Serum or plasma creatinine m easurement (mass/volume)Ordered By: David Corral on 11-29-2023 Creatinine [Mass/Vol] 2.16 mg/dL 0.55-1.02 [facility] Comment on above: The validity of the calculated GFR & GFRAA in patients over 70 years has not been determined. Clinical correlation is essential. Serum or plasma urea nitroge n measurement (mass/volume)Ordered By: David Corral on 11-29-2023 Urea nitrogen [Mass/Vol] 39 mg/dL 7-18 [facility] Thin prep Papanicolaou smear with manual screeningOrdered By: David Corral on 11-29-2023 Thin prep Papanicolaou smear with manual screening 3.7 g/dL 3.2-5.0 [facility] Thin prep Papanicolaou smear with manual screening 18 U/L 15-37 [facility] Thin prep Papanicolaou smear with manual screening 7 5-15 [facility] Erythrocyte sedimentation ra teOrdered By: David Corral on 10-04-2023 ESR (Bld) [Velocity] 57 mm/h 0-30 [facility] Iron measurement (mass/mass) Ordered By: David Corral on 10-04-2023 Iron (Unsp spec) [Mass/Mass] 44 ug/dL 50-170 [facility] Laboratory - Chemistry and C hemistry - challengeOrdered By: David Corral on 10-04-2023 Ferritin [Mass/Vol] 730 ng/mL 8-252 [facility] No Panel InformationOrdered By: David Corral on 10-04-2023 CA 125 Antigen 16.1 U/mL 0.0-38.1 [facility] Comment on above: David [employer] El ectrochemiluminescence Immunoassay(ECLIA)Values obtained with different assay methods or kits cannotbe used interchangeably. Results cannot be interpreted asabsolute evidence of the presence or absence of malignantdisease. Total Iron Binding Capacity 209 ug/dL 250-450 [facility] Serum or plasma erythropoiet in (EPO) measurement (units/volume)Ordered By: David Corral on 10-04-2023 Erythropoietin (EPO) Qn 19.4 mIU/mL High 2.6-18.5 [facility] Comment on above: [employer] el DxI 800 Immunoassay SystemValues obtained with different assay methods or kits cannotbe used interchangeably. Results cannot be interpreted asabsolute evidence of the presence or absence of malignantdisease.Performed at: [facility] Director: Joe Olivier PhD, Phone: [phone] Serum or plasma iron saturat ion measurement (mass fraction)Ordered By: David Castellon on 10-04-2023 Iron saturation [Mass fraction] 21.1 % 15.0-55.0 [facility] Laboratory - Hematology and Cell countson 08-27-2023 HbA1c (Bld) [Mass fraction] 5.4 % 4.2-6.3 [facility] No Panel InformationOrdered By: David Corral on 08-02-2023 Miscellaneous Test See comment [facility] Comment on above: TEST RESULTS LIMITSC eliac Ab tTG TIgA w/Rflxt-Transglutaminase (tTG) IgA <2 U/mL 0-3 Negative 0 - 3 Weak Positive 4 - 10 Positive >10 Tissue Transglutaminase (tTG) has been identified as the endomysial antigen. Studies have demonstr- ated that endomysial IgA antibodies have over 99% specificity for gluten sensitive enteropathy.Immunoglobulin A, Qn,Serum 275 mg/dL 87-352 TESTING PERFORMED AT [employer]. ORIGINAL REPORT ON FILE IN LAB CONTAINS ADDITIONAL TEST SITE INFORMATION. See comment [facility] Stool gastrointestinal hemog lobin detection by immunologic methodOrdered By: David Corral on 07-09-2023 Lower GI hemoglobin IA Ql (Stl) [facility] Blood manual differential co mment interpretation (narrative result)Ordered By: David Corral on 07-05-2023 Manual differential comment Rodrick (Bld) [Interp] SCANNED [facility] Serum or plasma C reactive p rotein measurement (mass/volume)Ordered By: David Corral on 07-05-2023 CRP [Mass/Vol] 38.50 mg/L 0.0-3.0 [facility] Comment on above: C-Reactive Protein ( CRP) provides useful information for thediagnosis, therapy and monitoring of inflammatory processesand associated diseases. For the evaluation of Relative Riskfor Cardiovascular Disease, a High Sensitivity CRP (HSCRP)should be ordered. DHRUVon 05-08-2023 [facility] ----- BRITTA YOUNG ([id number]) 1955 F Date Time Provider Department 05/08/23 12:45 PM DARLENE [facility] During your visit today, we recorded the following information about you: Temperature Pulse Respiration Blood pressure 98 degrees 65/minute 18/minute 142/84 Weight 132.1 kg Darlene Forde APRN.CNP 05/08/2023 12:58 PM Signed This note was created using NoteWriter. Subjective Britta Veliz Hector is a 67 year old female. 67 year old female with PMH HTN, GERD, CARLA, malignant ovarian CA (remission for 2 to 3 years) presents for mouth complaints. Chronic in nature Endorses that she has a longstanding history of needing dental work. Of note, she has been evaluated [facility], Linda Shepard in [place], beginning of this year, stating she was evaluated and had x 2 teeth pulled. States she saw [facility], last year, and start of gum disease, citing it was going to be 11 thousand dollars. She attempted to call the new dentist she wants to see today, but endorses that they informed they cannot see until May. Diffuse dental pain +jaw swelling + pain with chewing +sensitivity to hot and cold Denies fever or chills Denies inability to open or close Just need an antibiotic The history is provided by the patient. No science interpreter was used. Mouth/Lip Problem This is a recurrent problem. The current episode started more than 1 year ago. The problem occurs every several days. The problem has been gradually worsening. Pertinent negatives include no abdominal pain, anorexia, arthralgias, change in bowel habit, chest pain, chills, congestion, coughing, diaphoresis, fatigue, fever, headaches, joint swelling, myalgias, nausea, neck pain, numbness, rash, sore throat, swollen glands, urinary symptoms, vertigo, visual change, vomiting or weakness. Exacerbated by: eating and drinking. She has tried nothing for the symptoms. The treatment provided no relief. PAST MEDICAL HISTORY Diagnosis Date Pneumonia 2010 [facility]. Unspecified essential hypertension PAST SURGICAL HISTORY Procedure Laterality Date ENDOMETRIAL ABLTJ THERMAL W/O HYSTEROSCOPIC GUID 2003 Dr. Swartz FNA WITH IMAGING Right 02/05/2017 U/S FNA right retroareolar breast LIG/TRNSXJ FLP TUBE ABDL/VAG APPR UNI/BI age 39 PAST SURGICAL HISTORY OF removal of growth on toe TOTAL ABDOM HYSTERECTOMY ALLERGIES Betadine [Povidone-Iodine] MEDICATIONS amoxicillin-clavulanic acid (AUGMENTIN) 875-125 mg per tablet Take 1 tablet by mouth two times a day for 7 days. atorvastatin (LIPITOR) 20 mg tablet Take 1 tablet by mouth daily at bedtime. For cholesterol. benzonatate (TESSALON PERLES) 100 mg capsule Take 2 capsules by mouth three times daily as needed. buPROPion SR (ZYBAN SR; WELLBUTRIN SR) 150 mg 12 hr tablet TAKE 1 TABLET TWICE DAILY COMPOUNDED PRESCRIPTION CPAP mask Dx: CARLA G47.33 COMPR.STOCKING,THIGH,REG, X-LRG (COMP.STOCKING,THIGH,REG, X-LRG) [facility] Wear stockings through the day.remove at night. (I89.0) Lymphedema of both lower extremities CPAP Initiate CPAP @ 14cm of water with humidification. Mask (per patient preference) optional chin strap (if indicated) , filters, tubing, humidifier and lifetime supplies. fluticasone (FLONASE) 50 mcg/actuation nasal spray Use 2 Sprays in each nostril once daily. Rinse mouth after use. fluticasone (FLONASE) 50 mcg/actuation nasal spray Use 2 Sprays in each nostril once daily. Rinse mouth after use. hydroCHLOROthiazide (HYDRODIURIL, ESIDRIX) 25 mg tablet TAKE 2 TABLETS EVERY DAY lansoprazole (PREVACID) 30 mg capsule take 1 capsule daily 1/2 hour before breakfast metoprolol tartrate, short acting, (LOPRESSOR) 100 mg tablet Take 1 tablet by mouth twice daily. niraparib (ZEJULA) 200 mg tablet Take 200 mg by mouth once daily. potassium chloride ER (K-DUR, KLOR-CON) 20 mEq tablet TAKE 1 TABLET BY MOUTH TWICE DAILY ZEJULA 100 mg capsule (Patient not taking: Reported on 05/08/2023) FAMILY HISTORY Problem Relation Age of Onset Breast Cancer Mother Diabetes Mother Diabetes Maternal Grandmother Alcohol/Drug Father Stroke Maternal Grandfather Social History Tobacco Use Smoking status: Former Packs/day: .5 Types: Cigarettes Smokeless tobacco: Never Vaping Use Vaping Use: Never used Substance Use Topics Alcohol use: No Drug use: No Review of Systems Constitutional: Negative for chills, diaphoresis, fatigue and fever. HENT: Positive for dental problem. Negative for congestion and sore throat. Eyes: Negative for pain, discharge and itching. Respiratory: Negative for apnea, cough, choking and chest tightness. Cardiovascular: Negative for chest pain. Gastrointestinal: Negative for abdominal pain, anorexia, change in bowel habit, nausea and vomiting. Musculoskeletal: Negative for arthralgias, joint swelling, myalgias and n (more content not included)... Normal [facility] [place] Albumin Elph [Mass/Vol]Order ed By: David Corral on 04-12-2023 Albumin [Mass/Vol] 3.3 g/dL 2.9-4.4 [facility] Interpretation of serum or p lasma protein pattern by immunofixation (narrative resultOrdered By: David Corral on 04-12-2023 Protein Fractions Immunofixation Rodrick [Interp] See comment [facility] Comment on above: NOT OBSERVED No Panel InformationOrdered By: David Corral on 04-12-2023 Addendum Document Comment . [facility] Comment on above: Protein electrophore sis scan will follow via computer,mail, or jr. systems administrator delivery. Free Lambda Light Chains, Quant 35.3 mg/L 5.7-26.3 [facility] Serum [id number] measu rement by electrophoresisOrdered By: David Corral on 04-12-2023 Alpha 1 globulin Elph [Mass/Vol] 0.3 g/dL 0.0-0.4 [facility] Alpha 1 globulin Elph [Mass/Vol] 0.8 g/dL 0.4-1.0 [facility] Serum immunoglobulin kappa l ight chains/immunoglobulin lambda light chains mass ratioOrdered By: David Corral on 04-12-2023 Immunoglobulin light chains.kappa/Immunoglobu nisa light chains.lambda (S) [Mass ratio] 2.59 0.26-1.65 [facility] Serum or plasma IgA measurem ent (mass/volume)Ordered By: David Corral on 04-12-2023 IgA [Mass/Vol] 256 mg/dL 87-352 [facility] Serum or plasma IgG measurem ent (mass/volume)Ordered By: David Corral on 04-12-2023 IgG [Mass/Vol] 1396 mg/dL 586-1602 [facility] Serum or plasma IgM measurem ent (mass/volume)Ordered By: David Corral on 04-12-2023 IgM [Mass/Vol] 61 mg/dL 26-217 [facility] Serum or plasma beta globuli n measurement by electrophoresis (mass/volume)Ordered By: David Corral on 04-12-2023 Beta globulin Elph [Mass/Vol] 1.0 g/dL 0.7-1.3 [facility] Serum or plasma gamma globul in measurement by electrophoresis (mass/volume)Ordered By: David Corral on 04-12-2023 Gamma globulin Elph [Mass/Vol] 1.5 g/dL 0.4-1.8 [facility] Serum or plasma immunoelectr ophoresis interpretation (nominal result)Ordered By: David Corral on 04-12-2023 Interpretation IEP [Interp] Comment . [facility] Comment on above: No monoclonality det ected. Serum or plasma immunoglobul in kappa light chains measurement (mass/volume)Ordered By: Daivd Corrla on 04-12-2023 Immunoglobulin light chains.kappa [Mass/Vol] 91.4 mg/L 3.3-19.4 [facility] Thin prep Papanicolaou smear with manual screeningOrdered By: David Corral on 04-12-2023 Thin prep Papanicolaou smear with manual screening 1.0 0.7-1.7 [facility] Total protein bloodOrdered B y: David Corral on 04-12-2023 Protein [Mass/Vol] 6.9 g/dL 6.0-8.5 [facility] - Chemistry and C hemistry - challengeOrdered By: Berna Pierson on 03-14-2023 Cobalamin (Vitamin B12) [Mass/Vol] 473 pg/mL [facility] No Panel InformationOrdered By: Berna Pierson on 03-14-2023 Thyroid Stimulating Hormone (TSH) 0.50 uIU/mL 0.358-3.74 [facility] 0.50 uIU/mL 0.358-3.74 [facility] 473 pg/mL [facility] Serum or plasma folate measu rement (mass/volume)Ordered By: Berna Pierson on 03-14-2023 Folate [Mass/Vol] 5.60 ng/mL 3.1-55.4 [facility] Absolute lymphocyte countOrd ered By: Dr. Corral on 11-08-2022 Lymphocytes Auto (Unsp spec) [#/Vol] 1.62 10*3/uL 0.83-4.51 [facility] Basophil percentageOrdered B y: Dr. Corral on 11-08-2022 Basophils/100 WBC (Bld) 0.4 % 0-1 [facility] Bilirubin [Mass/Vol] 0.40 mg/dL 0.20-1.00 [facility] Comment on above: For patients on eltr ombopag therapy, use of Dimension Holiday TBIL is not recommended. Chloride [Moles/Vol] 104 mmol/L 98-107 [facility] Eosinophils/100 WBC (Bld) 3.8 % 0-5 [facility] Glucose [Mass/Vol] 100 mg/dL 74-106 [facility] Comment on above: Fasting Glucose resu lt from 100 to 125 mg/dL suggests IMPAIRED HOMEOSTASIS per A.D.A. criteria. LDH [Catalytic activity/Vol] 180 U/L 84-246 [facility] Neutrophils (Bld) [#/Vol] 5.2 10*3/uL 2.0-7.7 [facility] Neutrophils/100 WBC (Bld) 66.3 % 47-70 [facility] Potassium [Moles/Vol] 3.5 mmol/L 3.5-5.1 [facility] Protein [Mass/Vol] 7.6 g/dL 6.4-8.2 [facility] Sodium [Moles/Vol] 138 mmol/L 136-145 [facility] WBC (Bld) [#/Vol] 7.9 10*3/uL 4.4-11.0 [facility] Blood erythrocytes count (nu mber/volume)Ordered By: Dr. Corral on 11-08-2022 RBC (Bld) [#/Vol] 3.56 10*6/uL 4.2-5.4 [facility] Blood hemoglobin measurement (mass/volume)Ordered By: Dr. Corral on 11-08-2022 Hemoglobin (Bld) [Mass/Vol] 11.7 g/dL 12.0-15.0 [facility] Blood lymphocytes/100 leukoc ytesOrdered By: Dr. Corral on 11-08-2022 Lymphocytes/100 WBC (Bld) 20.5 % 19-41 [facility] Blood monocytes/100 leukocyt esOrdered By: Dr. Corral on 11-08-2022 Monocytes/100 WBC (Bld) 8.5 % 0-10 [facility] Blood platelet mean volumeOr dered By: Dr. Corral on 11-08-2022 Platelet mean volume (Bld) [Entitic vol] 12.3 fL 6.2-12.0 [facility] Determination of erythrocyte mean corpuscular volume (MCV)Ordered By: Dr. Corral on 11-08-2022 MCV (RBC) [Entitic vol] 102.5 fL 81-99 [facility] Hematocrit Auto (Bld) [Volum e fraction]Ordered By: Dr. Corral on 11-08-2022 Hematocrit (Bld) [Volume fraction] 36.5 % 37-47 [facility] Laboratory - Chemistry and C hemistry - challengeOrdered By: Dr. Corral on 11-08-2022 ALP [Catalytic activity/Vol] 97 U/L 45-117 [facility] ALT [Catalytic activity/Vol] 21 U/L 13-56 [facility] CO2 [Moles/Vol] 32.0 mmol/L 21.0-32.0 [facility] Globulin (S) [Mass/Vol] 4.3 g/dL 2.2-4.2 [facility] Urea nitrogen/Creatinine [Mass ratio] 17.9 mg/mg 10-20 [facility] Laboratory - Hematology and Cell countsOrdered By: Dr. Corral on 11-08-2022 Erythrocyte distribution width (RBC) [Entitic vol] 53.2 fL 35.1-43.9 [facility] Erythrocyte distribution width (RBC) [Ratio] 14.0 % 11.6-14.6 [facility] Immature granulocytes/100 WBC (Bld) 0.500 % 0.0-0.9 [facility] Comment on above: IG% - Immature Granu locytes (promyelocytes, myelocytes and metamyelocytes) > 1% indicates that a LEFT SHIFT is Present. MCH (RBC) [Entitic mass] 32.9 pg 27.0-32.0 [facility] Nucleated RBC/100 WBC (Bld) [Ratio] 0 % 0-5 [facility] MCHC Auto (RBC) [Mass/Vol]Or dered By: Dr. Corral on 11-08-2022 MCHC (RBC) [Mass/Vol] 32.1 g/dL 32-36 [facility] No Panel InformationOrdered By: Dr. Corral on 11-08-2022 CA 125 Antigen 12.5 U/mL 0.0-38.1 [facility] Comment on above: [facility] El ectrochemiluminescence Immunoassay(ECLIA)Values obtained with different assay methods or kits cannotbe used interchangeably. Results cannot be interpreted asabsolute evidence of the presence or absence of malignantdisease.Performed at: [address] [id number] Director: Joe Olivier PhD, Phone: [phone] Estimated Creatinine Clearance Calc 23.13 ml/min [facility] Estimated GFR (MDRD) Amer 28 mL/min >60 [facility] Comment on above: GFR Calc Estimated GFR (MDRD) Non-Af Amer 23 mL/min >60 [facility] Comment on above: Non- GFR Calc Platelets bldOrdered By: Dr. Corral on 11-08-2022 Platelets (Bld) [#/Vol] 164 10*3/uL 150-450 [facility] Serum or plasma albumin addie urement (mass/volume)Ordered By: Dr. Corral on 11-08-2022 Albumin [Mass/Vol] 3.3 g/dL 3.2-5.0 [facility] Serum or plasma albumin/glob ulin mass ratioOrdered By: Dr. Corral on 11-08-2022 Albumin/Globulin [Mass ratio] 0.8 {ratio} 0.9-2.4 [facility] Serum or plasma calcium addie urement (mass/volume)Ordered By: Dr. Corral on 11-08-2022 Calcium [Mass/Vol] 9.6 mg/dL 8.5-10.1 [facility] Serum or plasma creatinine m easurement (mass/volume)Ordered By: Dr. Corral on 11-08-2022 Creatinine [Mass/Vol] 2.24 mg/dL 0.55-1.02 [facility] Comment on above: The validity of the calculated GFR & GFRAA in patients over 70 years has not been determined. Clinical correlation is essential. Serum or plasma urea nitroge n measurement (mass/volume)Ordered By: Dr. Corral on 11-08-2022 Urea nitrogen [Mass/Vol] 40 mg/dL 7-18 [facility] Thin prep Papanicolaou smear with manual screeningOrdered By: Dr. Corral on 11-08-2022 Thin prep Papanicolaou smear with manual screening 16 U/L 15-37 [facility] Thin prep Papanicolaou smear with manual screening 2 5-15 [facility] Basophil percentageOrdered B y: Dr. Corral on 11-03-2022 Creatinine [Mass/Vol] 1.8 mg/dL 0.55-1.02 [facility] Laboratory - Chemistry and C hemistry - challengeOrdered By: Dr. Corral on 11-03-2022 GFR/1.73 sq M.predicted among non-blacks MDRD (S/P/Bld) [Vol rate/Area] 36.0000 mL/min/{1.73_m2} >60 [facility] No Panel InformationOrdered By: Dr. Corral on 08-31-2022 Free Lambda Light Chains, Quant 26.2 mg/L 5.7-26.3 [facility] Serum immunoglobulin kappa l ight chains/immunoglobulin lambda light chains mass ratioOrdered By: Dr. Corral on 08-31-2022 Immunoglobulin light chains.kappa/Immunoglobu nisa light chains.lambda (S) [Mass ratio] 3.25 0.26-1.65 [facility] Comment on above: Performed at: [place] [id number] Director: Joe Olivier PhD, Phone: [phone] Serum or plasma immunoglobul in kappa light chains measurement (mass/volume)Ordered By: Dr. Corral on 08-31-2022 Immunoglobulin light chains.kappa [Mass/Vol] 85.2 mg/L 3.3-19.4 [facility] Laboratory - Hematology and Cell countson 08-09-2022 HbA1c (Bld) [Mass fraction] 5.3 % 4.2-6.3 [facility] DEMARCUS SCREENING W TOMOon 06-05 [facility] Iron measurement (mass/mass) on 03-31-2021 Iron (Unsp spec) [Mass/Mass] 73 ug/dL 50-170 [facility] Laboratory - Hematology and Cell countson 03-31-2021 Anisocytosis Ql (Bld) RARE [facility] No Panel Informationon 03-31 Total Iron Binding Capacity 243 ug/dL 250-450 [facility] RARE [facility] Serum or plasma ferritin vanita surement (mass/volume)on 03-31-2021 Ferritin [Mass/Vol] 1225 ng/mL 8-252 [facility] Serum or plasma iron saturat ion measurement (mass fraction)on 03-31-2021 Iron saturation [Mass fraction] 30.0 % 15.0-55.0 [facility] Blood manual differential co mment interpretation (narrative result)on 03-02-2021 Manual differential comment Rodrick (Bld) [Interp] SCANNED [facility] Laboratory - Microbiology an d Antimicrobial susceptibilityon 02-23-2021 Bacteria identified Cx Nom (Bld) No growth in 5 days. [facility] Culture, urineon 02-18-2021 Bacteria identified Cx Nom (U) Mixed Gram Pos & Gram Neg Org [facility] Basophil percentageon 2020 Basophil percentage 0-5 SEEN /hpf 0-5 [facility] Bilirubin Test strip Ql (U)o n 02-16-2021 Bilirubin Ql (U) Negative Negative [facility] Culture, urineon 02-16-2021 Bacteria identified Cx Nom (U) Mixed Gram Pos & Gram Neg Org Abnormal [facility] Hyaline casts LM.LPF (Urine sed) [#/Area]on 02-16-2021 Hyaline casts (Urine sed) [#/Area] 10 /[LPF] 0-5 [facility] Hypochromatic red blood cell detectionon 02-16-2021 Hypochromia Ql (Bld) 2+ [facility] Ketones Test strip Ql (U)on 02-16-2021 Ketones Ql (U) Negative Negative [facility] Laboratory - Microbiology an d Antimicrobial susceptibilityon 02-16-2021 Bacteria identified Cx Nom (Bld) No growth in 5 days. [facility] Bacteria identified Cx Nom (Bld) No growth in 5 days. [facility] Mucus LM Ql (Urine sed)on Mucus Ql (Urine sed) 1+ /hpf [facility] Nitrite Test strip Ql (U)on 02-16-2021 Nitrite Ql (U) Negative Negative [facility] No Panel Informationon 02-16 No growth in 5 days. [facility] No growth in 5 days. [facility] Protein Test strip Ql (U)on 02-16-2021 Protein Ql (U) 30 mg/dl High Negative [facility] Squamous epithelial cells de tection in urine sediment by light microscopyon 02-16-2021 Epithelial cells.squamous LM Ql (Urine sed) 0 SEEN /hpf 5-10 [facility] Urine blood detectionon 01-28 RBC Ql (U) Negative Negative [facility] RBC Ql (U) 0 SEEN /hpf 0-5 [facility] Urine clarityon 02-16-2021 Clarity (U) Clear Clear [facility] Urine color determinationon 02-16-2021 Color (U) Yellow Yellow [facility] Urine glucose detectionon Glucose Ql (U) Normal mg/dl Normal [facility] Urine leukocyte esterase det ection by dipstickon 02-16-2021 Leukocyte esterase Test strip Ql (U) 25 /ul High Negative [facility] Urine pHon 02-16-2021 pH (U) 5.0 [pH] 5.0 - 8.0 [facility] Urine sediment bacteria coun t by microscopy (number/high power field)on 02-16-2021 Bacteria LM.HPF (Urine sed) [#/Area] RARE /hpf None Seen [facility] Urine specific gravity measu rementon 02-16-2021 Specific gravity (U) [Rel density] 1.020 1.002-1.03 0 [facility] Urobilinogen Auto test strip Ql (U)on 02-16-2021 Urobilinogen Ql (U) 1 mg/dl High Normal [facility] Blood band neutrophil count as percentage of total leukocyteson 02-09-2021 Band form neutrophils/100 WBC (Bld) 2 % 0-5 [facility] Blood eosinophils/100 leukoc yteson 02-09-2021 Eosinophils/100 WBC (Bld) 1 % 0-5 [facility] Blood lymphocytes/100 leukoc yteson 02-09-2021 Lymphocytes/100 WBC (Bld) 22 % 19-41 [facility] Blood monocytes/100 leukocyt eson 02-09-2021 Monocytes/100 WBC (Bld) 11 % High 0-10 [facility] Blood platelet adequacy dete ction by light microscopyon 02-09-2021 Platelets LM Ql (Bld) ADEQUATE ADEQ [facility] Blood segmented neutrophils/ 100 leukocyteson 02-09-2021 Segmented neutrophils/100 WBC (Bld) 62 % 47-70 [facility] Laboratory - Hematology and Cell countson 02-09-2021 Myelocytes/100 WBC (Bld) 2 % High 0-0 [facility] No Panel Informationon 02-09 2 % High 0-0 [facility] RBC morphologyon 02-09-2021 RBC morphology finding Nom (Bld) NORM C+C NORMAL NORM C&C [facility] Review by pathologiston 01-27 Pathologist review Rodrick (Unsp spec) [Interp] Reviewed [facility] Comment on above: Previous reported re sult: Jerica soto Edited by: REX on 02/10/21:1352Neutrophilic left shift.Macrocytic anemia.Clinical correlation necessary.Erik Garvin M.D. 02/10/21 AMENDED REPORT 02/10/21 1352 PATH REV previously reported as: Jerica soto Total cell counton Cells counted Molgen (Bld/Tiss) [#] 100 MANUAL DIFF [facility] Macrocytes detectionon 02-02 Macrocytes Ql (Bld) 1+ [facility] Basophil percentageon 2020 Basophil percentage 3.3 mg/dL 2.5-4.9 [facility] Laboratory - Chemistry and C hemistry - challengeon 01-26-2021 Magnesium [Mass/Vol] 1.1 mg/dL Low 1.6-2.6 [facility] No Panel Informationon 01-26 Reactive Lymphocytes 2+ [facility] 2+ [facility] 1.1 mg/dL Low 1.6-2.6 [facility] Potassiumon 01-26-2021 Potassium [Mass/Vol] 3.3 mg/dL 2.5-4.9 [facility] Thin prep Papanicolaou smear with manual screeningon 01-26-2021 Thin prep Papanicolaou smear with manual screening 1+ [facility] Stool gastrointestinal hemog lobin detection by immunologic methodon 01-13-2021 Lower GI hemoglobin IA Ql (Stl) [facility] Albumin Elph [Mass/Vol]on Albumin [Mass/Vol] 3.6 g/dL 2.9-4.4 [facility] Interpretation of serum or p lasma protein pattern by immunofixation (narrative resulton 01-12-2021 Protein Fractions Immunofixation Rodrick [Interp] 0.6 g/dL Not Observed [facility] No Panel Informationon 01-12 Addendum Document Comment . [facility] Comment on above: Protein electrophore sis scan will follow via computer,mail, or jr. systems administrator delivery. Serum [id number] measu rement by electrophoresison 01-12-2021 Alpha 1 globulin Elph [Mass/Vol] 0.4 g/dL 0.0-0.4 [facility] Alpha 1 globulin Elph [Mass/Vol] 0.9 g/dL 0.4-1.0 [facility] Serum or plasma IgA measurem ent (mass/volume)on 01-12-2021 IgA [Mass/Vol] 241 mg/dL 87-352 [facility] Serum or plasma IgG measurem ent (mass/volume)on 01-12-2021 IgG [Mass/Vol] 1817 mg/dL 586-1602 [facility] Serum or plasma IgM measurem ent (mass/volume)on 01-12-2021 IgM [Mass/Vol] 83 mg/dL 26-217 [facility] Serum or plasma beta globuli n measurement by electrophoresis (mass/volume)on 01-12-2021 Beta globulin Elph [Mass/Vol] 1.2 g/dL 0.7-1.3 [facility] Serum or plasma gamma globul in measurement by electrophoresis (mass/volume)on 01-12-2021 Gamma globulin Elph [Mass/Vol] 1.8 g/dL 0.4-1.8 [facility] Serum or plasma immunoelectr ophoresis interpretation (nominal result)on 01-12-2021 Interpretation IEP [Interp] Comment . [facility] Comment on above: Immunofixation shows IgG monoclonal protein with lambdalight chain specificity. Thin prep Papanicolaou smear with manual screeningon 01-12-2021 Thin prep Papanicolaou smear with manual screening 0.9 0.7-1.7 [facility] Total protein bloodon 2020 Protein [Mass/Vol] 7.9 g/dL 6.0-8.5 [facility] No Panel Informationon 01-04 CA 125 Antigen Serial Monitor Not Reportable [facility] Not Reportable [facility] Teardrop cell detectionon Dacrocytes LM Ql (Bld) 1+ [facility] Glucose,Bedsideon 09-25-2020 Glucose [Mass/Vol] 94 mg/dL Normal 70-100 [facility] Comment on above: Result Comment: Test performed by glucose meter. Results may be 10%-15% lower than serum/plasma values. (CLIA ID [id number]) Performed By: #### B GLU #### [facility] [address] [place] [address] [id number] 09-25-2020 SARS-CoV-2 SARS-CoV-2 --> Statu s: F Not Detected. Expected Result: Not Detected _ Real-time, RT-PCR performed on the [employer] System by the [facility] Negative results do not preclude SARS-CoV-2 infection and should not be used as the sole basis for treatment or other patient management decisions. This assay was developed and its performance characteristics determined by the [facility]. The [place]. [place]. Food and Drug Administration has not approved or cleared this test; however, FDA clearance or approval is not currently required for clinical use. Expected Result: Not Detected _ Real-time, RT-PCR performed on the [employer] System by the [facility] Negative results do not preclude SARS-CoV-2 infection and should not be used as the sole basis for treatment or other patient management decisions. This assay was developed and its performance characteristics determined by the [facility]. The [place]. S. Food and Drug Administration has not approved or cleared this test; however, FDA clearance or approval is not currently required for clinical use. Normal [facility] Comment on above: Performed By: #### C RTUR, OSMUR, NAURR #### [facility] [address] [place] [address] Zinc, Serumon 09-25-2020 Zinc, Serum 61.8 ug/dL Normal 60.0-120.0 [facility] Comment on above: Result Comment: INTE RPRETIVE INFORMATION: Zinc, Serum or Plasma Elevated results may be due to skin or collection-related contamination, including the use of a noncertified metal-free collection/transport tube. If contamination concerns exist due to elevated levels of serum/plasma zinc, confirmation with a second specimen collected in a certified metal-free tube is recommended. Circulating zinc concentrations are dependent on albumin status and are depressed with malnutrition. Zinc may also be lowered with infection, inflammation, stress, oral contraceptives, and . Zinc may be elevated with zinc supplementation or fasting. Elevated zinc concentrations may interfere with copper absorption. This test was developed and its performance characteristics determined by [facility]. It has not been cleared or approved by the [place] Food and Drug Administration. This test was performed in a CLIA certified laboratory and is intended for clinical purposes. Performed By: [facility] [address] [place] [id number] Acute Care Occupational Therapist: Francie Kumar MD Performed By: #### B GLU #### [address] [place], [place] Basic Metabolic Panelon 08-31 Calcium [Mass/Vol] 8.6 mg/dL Normal 8.4-10.4 [facility] Comment on above: Performed By: #### C ASHLEY GARCIA, NAURR #### [place] [address] [place], [place] Glucose [Mass/Vol] 122 mg/dL High 70-100 [facility] Comment on above: Performed By: #### C ASHLEY GARCIA, NAURR #### [place] [address] [place], [place] Urea nitrogen [Mass/Vol] 30 mg/dL High 7-20 [facility] Comment on above: Performed By: #### C ASHLEY GARCIA, NAURR #### [place] [address] [address] [place], [place] Anion gap [Moles/Vol] 10 mmol/L Normal 3-13 [facility] Comment on above: Performed By: #### C ASHLEY GARCIA, NAURR #### [place] [address] [address] [place], [place] CO2 [Moles/Vol] 17 mmol/L Low 22-30 [facility] Comment on above: Performed By: #### C ASHLEY GARCIA NAURR #### [address] Creatinine [Mass/Vol] 1.14 mg/dL Normal 0.52-1.25 [facility] Comment on above: Performed By: #### C ASHLEY GARCIA NAURR #### [address] GFR/1.73 sq M predicted among blacks MDRD (S/P/Bld) [Vol rate/Area] 58.5 mL/min/{1.73_m2} Abnormal >60 [facility] Comment on above: Performed By: #### C ASHLEY GARCIA NAURR #### [address] GFR/1.73 sq M predicted among non-blacks MDRD (S/P/Bld) [Vol rate/Area] 50.5 mL/min/{1.73_m2} Abnormal >60 [facility] Comment on above: Result Comment: KDIG O guidelines provide the following GFR categories: Stage GFR(ml/min/1.73 m2) Terms G1 >=90 Normal or high G2 60-89 Mildly decreased* G3a 45-59 Mildly to moderately decreased G3b 30-44 Moderately to severely decreased G4 15-29 Severely decreased G5 <15 Kidney failure *Relative to young adult level. In the absence of evidence of kidney damage, neither GFR category G1 nor G2 fulfill the criteria for CKD. The CKD-EPI equation is validated in individuals 18 years of age and older. Currently the best equation for estimating glomerular filtration rate (GFR) from serum creatinine in children is the Bedside Lee equation. It is less accurate in patients with extremes of muscle mass, restriction of dietary protein, ingestion of creatine, extra-renal metabolism of creatinine, or treatment with medications that affect renal tubular creatinine secretion. Performed By: #### C ASHLEY GARCIA NAJENNYFER #### [address] Chloride [Moles/Vol] 108 mmol/L High 98-[address] [facility] Comment on above: Performed By: #### C ASHLEY GARCIA, NAURR #### [address] [address] [address] [place], [place] Potassium [Moles/Vol] 3.5 mmol/L Normal 3.5-5.1 [facility] Comment on above: Performed By: #### C ASHLEY GARCIA, NAURR #### [address] [address] [address] [place], [place] Sodium [Moles/Vol] 135 mmol/L Normal 135-145 [facility] Comment on above: Performed By: #### C ASHLEY GARCIA, NAURR #### [address] [address] [address] [place], [place] Ferritinon 09-24-2020 Ferritin [Mass/Vol] 1370 ng/mL High 8-252 [facility] Comment on above: Performed By: #### C ASHLEY GARCIA, NAURR #### [address] [address] [address] [place], [place] Glucose,Bedsideon 09-24-2020 Glucose [Mass/Vol] 114 mg/dL High 70-100 [facility] Comment on above: Result Comment: Test performed by glucose meter. Results may be 10%-15% lower than serum/plasma values. (CLIA ID [id number]) Performed By: #### C ASHLEY GARCIA, NAURR #### [address] [address] [address] [place], [place] Glucose [Mass/Vol] 120 mg/dL High 70-100 [facility] Comment on above: Result Comment: Test performed by glucose meter. Results may be 10%-15% lower than serum/plasma values. (CLIA ID [id number]) Performed By: #### M G3, PHOS3, BMP3, HEMDF #### [address] [address] [address] [place], [place] Hemogram w/ Autodiffon 09-24 Abs Baso Cnt 0.0 10*3/uL Normal 0.0-0.2 [facility] Comment on above: Performed By: #### C RTGUSTAVO, OSMGUSTAVO, NAURR #### [facility] [address] [place], [place] Abs Neutrophile Cnt 9.9 10*3/uL High 1.8-7.[address] [facility] Comment on above: Performed By: #### C RTGUSTAVO, OSMGUSTAVO, NAURR #### [address] [address] [address] [place], [place] Basophils/100 WBC (Bld) 0.1 % Normal 0.0-2.0 [facility] Comment on above: Performed By: #### C RTGUSTAVO, OSMUR, NAURR #### [address] [address] [address] [place], [place] Eosinophils (Bld) [#/Vol] 0.4 10*3/uL Normal 0.0-0.5 [facility] Comment on above: Performed By: #### C RTGUSTAVO, OSMGUSTAVO, NAURR #### [address] [address] [address] [place], [place] Eosinophils/100 WBC (Bld) 3.0 % Normal 1.0-6.0 [facility] Comment on above: Performed By: #### C RTGUSTAVO, OSMGUSTAVO, NAURR #### [address] [address] [address] [place], [place] Erythrocyte distribution width (RBC) [Ratio] 19.0 % High 11.5-14.5 [facility] Comment on above: Performed By: #### C RTGUSTAVO, OSMUR, NAURR #### [address] [address] [address] [place], [place] Granulocytes/100 WBC (Bld) 81.6 % High 40.0-80.0 [facility] Comment on above: Performed By: #### C RTGUSTAVO, OSMGUSTAVO, NAURR #### [address] [address] [place], [place] Hematocrit (Bld) [Volume fraction] 24.5 % Low 35.0-47.0 [facility] Comment on above: Performed By: #### C RTGUSTAVO, OSMUR, NAURR #### [address] [address] [address] [place], [place] Hemoglobin (Bld) [Mass/Vol] 7.9 g/dL Low 11.7-16.0 [facility] Comment on above: Performed By: #### C ASHLEY GARCIA, NAURR #### [facility] [address] [place], [place] Lymphocytes (Bld) [#/Vol] 0.9 10*3/uL Low 1.0-4.3 [facility] Comment on above: Performed By: #### C ASHLEY GARCIA, NAURR #### [address] [address] [address] [place], [place] Lymphocytes/100 WBC (Bld) 7.2 % Low 20.0-40.0 [facility] Comment on above: Performed By: #### C ASHLEY GARCIA, NAURR #### [address] [address] [address] [place], [place] MCH (RBC) [Entitic mass] 31.5 pg Normal 26.0-34.0 [facility] Comment on above: Performed By: #### C ASHLEY GARCIA, NAURR #### [address] [address] [place], [place] MCHC (RBC) [Mass/Vol] 32.2 % Normal 32.0-36.0 [facility] Comment on above: Performed By: #### C JOSE, ASHLEY, NAURR #### [address] [address] [place], [place] MCV (RBC) [Entitic vol] 98.1 fL High 79.0-98.0 [facility] Comment on above: Performed By: #### C JOSE, ASHLEY, NAURR #### [address] [address] [address] [place], [place] Monocytes (Bld) [#/Vol] 1.0 10*3/uL High 0.0-0.8 [facility] Comment on above: Performed By: #### C RTGUSTAVO, OSMGUSTAVO, NAURR #### [address] [place] [address] [address] [place], [place] Monocytes/100 WBC (Bld) 8.1 % Normal 2.0-10.0 [facility] Comment on above: Performed By: #### C ASHLEY GARCIA, NAURR #### [address] [address] [address] [place], [place] Platelet mean volume (Bld) [Entitic vol] 11.3 fL High 7.4-10.4 [facility] Comment on above: Performed By: #### C ASHLEY GARCIA, NAURR #### [address] [address] [address] [place], [place] Platelets (Bld) [#/Vol] 137 10*3/uL Low 140-440 [facility] Comment on above: Performed By: #### C ASHLEY GARCIA, NAURR #### [address] [address] [address] [place], [place] RBC (Bld) [#/Vol] 2.50 10*6/uL Low 3.80-5.20 [facility] Comment on above: Performed By: #### C ASHLEY GARCIA, NAURR #### [address] [place], [place] WBC (Bld) [#/Vol] 12.1 10*3/uL High 3.6-10.7 [facility] Comment on above: Performed By: #### C ASHLEY GARCIA, NAURR #### [address] [address] [address] [place], [place] Iron AND TIBCon 09-24-2020 Saturation 14 % Low 15-50 [facility] Comment on above: Performed By: #### C ASHLEY GARCIA, NAURR #### [address] [address] [address] [place], [place] Total Iron Binding Cap. 202 ug/dL Low 261-497 [facility] Comment on above: Performed By: #### C ASHLEY GARCIA, NAURR #### [address] [address] [address] [place], [place] Iron, Total 29 ug/dL Low 37-170 [facility] Comment on above: Performed By: #### C ASHLEY GARCIA, NAURR #### [address] [address] [address] [place], [place] Magnesiumon 09-24-2020 Magnesium [Mass/Vol] 2.1 mg/dL Normal 1.6-2.[address] [facility] Comment on above: Performed By: #### C ASHLEY GARCIA, NAURR #### [address] [address] [place], [place] Phosphoruson 09-24-2020 Phosphate [Mass/Vol] 3.2 mg/dL Normal 2.5-4.[address] [facility] Comment on above: Performed By: #### C ASHLEY GARCIA, NAURR #### [address] [place], [place] Basic Metabolic Panelon 08-31 Calcium [Mass/Vol] 8.1 mg/dL Low 8.4-10.4 [facility] Comment on above: Performed By: #### M G3, PHOS3, BMP3, HEMDF #### [address] [place], [place] Anion gap [Moles/Vol] 11 mmol/L Normal 3-13 [facility] Comment on above: Performed By: #### M G3, PHOS3, BMP3, HEMDF #### [address] [place], [place] CO2 [Moles/Vol] 15 mmol/L Low 22-30 [facility] Comment on above: Performed By: #### M G3, PHOS3, BMP3, HEMDF #### [address] [place], [place] Creatinine [Mass/Vol] 1.34 mg/dL High 0.52-1.25 [facility] Comment on above: Performed By: #### M G3, PHOS3, BMP3, HEMDF #### [address] [place], [place] GFR/1.73 sq M predicted among blacks MDRD (S/P/Bld) [Vol rate/Area] 48.1 mL/min/{1.73_m2} Abnormal >60 [facility] Comment on above: Performed By: #### M G3, PHOS3, BMP3, HEMDF #### [facility] [address] [place] [address] GFR/1.73 sq M predicted among non-blacks MDRD (S/P/Bld) [Vol rate/Area] 41.5 mL/min/{1.73_m2} Abnormal >60 [facility] Comment on above: Result Comment: KDIG O guidelines provide the following GFR categories: Stage GFR(ml/min/1.73 m2) Terms G1 >=90 Normal or high G2 60-89 Mildly decreased* G3a 45-59 Mildly to moderately decreased G3b 30-44 Moderately to severely decreased G4 15-29 Severely decreased G5 <15 Kidney failure *Relative to young adult level. In the absence of evidence of kidney damage, neither GFR category G1 nor G2 fulfill the criteria for CKD. The CKD-EPI equation is validated in individuals 18 years of age and older. Currently the best equation for estimating glomerular filtration rate (GFR) from serum creatinine in children is the Bedside Lee equation. It is less accurate in patients with extremes of muscle mass, restriction of dietary protein, ingestion of creatine, extra-renal metabolism of creatinine, or treatment with medications that affect renal tubular creatinine secretion. Performed By: #### M G3, PHOS3, BMP3, HEMDF #### [facility] [address] [place], [place] Glucose [Mass/Vol] 338 mg/dL High 70-100 [facility] Comment on above: Performed By: #### M G3, PHOS3, BMP3, HEMDF #### [facility] [address] [place] [address] Urea nitrogen [Mass/Vol] 32 mg/dL High 7-20 [facility] Comment on above: Performed By: #### M G3, PHOS3, BMP3, HEMDF #### [facility] [address] [place] [address] Chloride [Moles/Vol] 105 mmol/L Normal 98-[address] [facility] Comment on above: Performed By: #### M G3, PHOS3, BMP3, HEMDF #### [facility] [address] [place] [address] Potassium [Moles/Vol] 5.6 mmol/L High 3.5-5.1 [facility] Comment on above: Result Comment: Slig htly hemolysed, interpret with caution. Performed By: #### M G3, PHOS3, BMP3, HEMDF #### [facility] [address] [place], [place] Sodium [Moles/Vol] 131 mmol/L Low 135-145 [facility] Comment on above: Performed By: #### M G3, PHOS3, BMP3, HEMDF #### [facility] [address], [place] Clostridium difficile PCRon 09-23-2020 Clostridium difficile PCR Clostridium difficile by PCR --> Status: F NEGATIVE Methodology - Real Time PCR (Cepheid) Clinical judgement must be used when interpreting results. Positive results may reflect colonization. Indeterminate results suggest a new specimen be submitted. Methodology - Real Time PCR (Cepheid) Clinical judgement must be used when interpreting results. Positive results may reflect colonization. Indeterminate results suggest a new specimen be submitted. Normal [facility] Comment on above: Performed By: #### C RTUR, ASHLEY, NAURR #### [facility] [address] [place], [place] Hemogram w/ Autodiffon 09-23 Abs Baso Cnt 0.1 10*3/uL Normal 0.0-0.2 [facility] Comment on above: Performed By: #### M G3, PHOS3, BMP3, HEMDF #### [facility] [address] [place], [place] Abs Neutrophile Cnt 10.7 10*3/uL High 1.8-7.0 [facility] Comment on above: Performed By: #### M G3, PHOS3, BMP3, HEMDF #### [facility] [address] [place], [place] Basophils/100 WBC (Bld) 0.6 % Normal 0.0-2.0 [facility] Comment on above: Performed By: #### M G3, PHOS3, BMP3, HEMDF #### [facility] [address] [place], [place] Eosinophils (Bld) [#/Vol] 0.3 10*3/uL Normal 0.0-0.5 [facility] Comment on above: Performed By: #### M G3, PHOS3, BMP3, HEMDF #### [address] [place], [place] Eosinophils/100 WBC (Bld) 2.5 % Normal 1.0-6.0 [facility] Comment on above: Performed By: #### M G3, PHOS3, BMP3, HEMDF #### [address] [place], [place] Erythrocyte distribution width (RBC) [Ratio] 20.2 % High 11.5-14.5 [facility] Comment on above: Performed By: #### M G3, PHOS3, BMP3, HEMDF #### [address] [place], [place] Granulocytes/100 WBC (Bld) 81.6 % High 40.0-80.0 [facility] Comment on above: Performed By: #### M G3, PHOS3, BMP3, HEMDF #### [address] [place], [place] Hematocrit (Bld) [Volume fraction] 25.4 % Low 35.0-47.0 [facility] Comment on above: Performed By: #### M G3, PHOS3, BMP3, HEMDF #### [address] [place], [place] Hemoglobin (Bld) [Mass/Vol] 8.1 g/dL Low 11.7-16.0 [facility] Comment on above: Performed By: #### M G3, PHOS3, BMP3, HEMDF #### [address] [place], [place] Lymphocytes (Bld) [#/Vol] 1.1 10*3/uL Normal 1.0-4.3 [facility] Comment on above: Performed By: #### M G3, PHOS3, BMP3, HEMDF #### [address] [place] [address] Lymphocytes/100 WBC (Bld) 8.3 % Low 20.0-40.0 [facility] Comment on above: Performed By: #### [place] G3, PHOS3, BMP3, HEMDF #### [address] [place], [place] MCH (RBC) [Entitic mass] 32.4 pg Normal 26.0-34.0 [facility] Comment on above: Performed By: #### [place] G3, PHOS3, BMP3, HEMDF #### [address] [place], [place] MCHC (RBC) [Mass/Vol] 32.1 % Normal 32.0-36.0 [facility] Comment on above: Performed By: #### M G3, PHOS3, BMP3, HEMDF #### [address] [place], [place] MCV (RBC) [Entitic vol] 100.9 fL High 79.0-98.0 [facility] Comment on above: Performed By: #### [place] G3, PHOS3, BMP3, HEMDF #### [address] [place], [place] Monocytes (Bld) [#/Vol] 0.9 10*3/uL High 0.0-0.8 [facility] Comment on above: Performed By: #### M G3, PHOS3, BMP3, HEMDF #### [address] [address] [place], [place] Monocytes/100 WBC (Bld) 7.0 % Normal 2.0-10.0 [facility] Comment on above: Performed By: #### [place] G3, PHOS3, BMP3, HEMDF #### [address] [place], [place] Platelet mean volume (Bld) [Entitic vol] 11.7 fL High 7.4-10.4 [facility] Comment on above: Performed By: #### M G3, PHOS3, BMP3, HEMDF #### [address] [place], [place] Platelets (Bld) [#/Vol] 144 10*3/uL Normal 140-440 [facility] Comment on above: Performed By: #### M G3, PHOS3, BMP3, HEMDF #### [address] [place], [place] RBC (Bld) [#/Vol] 2.52 10*6/uL Low 3.80-5.20 [facility] Comment on above: Performed By: #### M G3, PHOS3, BMP3, HEMDF #### [facility] [address], [place] WBC (Bld) [#/Vol] 13.1 10*3/uL High 3.6-10.7 [facility] Comment on above: Performed By: #### M G3, PHOS3, BMP3, HEMDF #### [address] [place], [place] Magnesiumon 09-23-2020 Magnesium [Mass/Vol] 2.0 mg/dL Normal 1.6-2.[address] [facility] Comment on above: Result Comment: Slig htly hemolysed, interpret with caution. Performed By: #### M G3, PHOS3, BMP3, HEMDF #### [address] [place], [place] Magnesium [Mass/Vol] 2.9 mg/dL High 1.6-2.[address] [facility] Comment on above: Result Comment: Slig htly hemolysed, interpret with caution. Performed By: #### M G3, PHOS3, BMP3, HEMDF #### [address] [place], [place] Phosphoruson 09-23-2020 Phosphate [Mass/Vol] 7.3 mg/dL High 2.5-4.[address] [facility] Comment on above: Result Comment: Slig htly hemolysed, interpret with caution. Performed By: #### M G3, PHOS3, BMP3, HEMDF #### [facility] [address], [place] Renal Functionon 09-23-2020 Calcium [Mass/Vol] 8.6 mg/dL Normal 8.4-10.4 [facility] Comment on above: Performed By: #### M G3, PHOS3, BMP3, HEMDF #### [facility] [address] [place], [place] Anion gap [Moles/Vol] 11 mmol/L Normal 3-13 [facility] Comment on above: Performed By: #### M G3, PHOS3, BMP3, HEMDF #### [facility] [address] [place], [place] CO2 [Moles/Vol] 18 mmol/L Low 22-30 [facility] Comment on above: Performed By: #### M G3, PHOS3, BMP3, HEMDF #### [facility] [address] [place], [place] Creatinine [Mass/Vol] 1.21 mg/dL Normal 0.52-1.25 [facility] Comment on above: Performed By: #### M G3, PHOS3, BMP3, HEMDF #### [facility] [address] [place], [place] GFR/1.73 sq M predicted among blacks MDRD (S/P/Bld) [Vol rate/Area] 54.5 mL/min/{1.73_m2} Abnormal >60 [facility] Comment on above: Performed By: #### M G3, PHOS3, BMP3, HEMDF #### [facility] [address] [place], [place] GFR/1.73 sq M predicted among non-blacks MDRD (S/P/Bld) [Vol rate/Area] 47.0 mL/min/{1.73_m2} Abnormal >60 [facility] Comment on above: Result Comment: KDIG O guidelines provide the following GFR categories: Stage GFR(ml/min/1.73 m2) Terms G1 >=90 Normal or high G2 60-89 Mildly decreased* G3a 45-59 Mildly to moderately decreased G3b 30-44 Moderately to severely decreased G4 15-29 Severely decreased G5 <15 Kidney failure *Relative to young adult level. In the absence of evidence of kidney damage, neither GFR category G1 nor G2 fulfill the criteria for CKD. The CKD-EPI equation is validated in individuals 18 years of age and older. Currently the best equation for estimating glomerular filtration rate (GFR) from serum creatinine in children is the Bedside Lee equation. It is less accurate in patients with extremes of muscle mass, restriction of dietary protein, ingestion of creatine, extra-renal metabolism of creatinine, or treatment with medications that affect renal tubular creatinine secretion. Performed By: #### M G3, PHOS3, BMP3, HEMDF #### [facility] [address] [place] [address] Glucose [Mass/Vol] 131 mg/dL High 70-100 [facility] Comment on above: Performed By: #### M G3, PHOS3, BMP3, HEMDF #### [facility] [address] [place], [place] Phosphate [Mass/Vol] 3.9 mg/dL Normal 2.5-4.[address] [facility] Comment on above: Performed By: #### M G3, PHOS3, BMP3, HEMDF #### [facility] [address] [place], [place] Urea nitrogen [Mass/Vol] 32 mg/dL High 7-20 [facility] Comment on above: Performed By: #### M G3, PHOS3, BMP3, HEMDF #### [facility] [address] [place], [place] Albumin [Mass/Vol] 2.9 g/dL Low 3.5-5.0 [facility] Comment on above: Performed By: #### M G3, PHOS3, BMP3, HEMDF #### [facility] [address] [place], [place] Chloride [Moles/Vol] 111 mmol/L High 98-[address] [facility] Comment on above: Performed By: #### M G3, PHOS3, BMP3, HEMDF #### [facility] [address] [place], [place] Potassium [Moles/Vol] 3.3 mmol/L Low 3.5-5.1 [facility] Comment on above: Result Comment: Slig htly hemolysed, interpret with caution. Performed By: #### M G3, PHOS3, BMP3, HEMDF #### [facility] [address] [place], [place] Sodium [Moles/Vol] 140 mmol/L Normal 135-145 [facility] Comment on above: Performed By: #### M G3, PHOS3, BMP3, HEMDF #### [address] [address] [place], [place] Basic Metabolic Panelon 02- Calcium [Mass/Vol] 9.1 mg/dL Normal 8.4-10.4 [facility] Comment on above: Performed By: #### C ASHLEY GARCIA, NAURR #### [address] [place], [place] Anion gap [Moles/Vol] 8 mmol/L Normal 3-13 [facility] Comment on above: Performed By: #### C ASHLEY GARCIA, NAURR #### [address] [place], [place] CO2 [Moles/Vol] 20 mmol/L Low 22-30 [facility] Comment on above: Performed By: #### C ASHLEY GARCIA, NAURR #### [address] [place], [place] Creatinine [Mass/Vol] 1.29 mg/dL High 0.52-1.25 [facility] Comment on above: Performed By: #### C ASHLEY GARCIA, NAURR #### [address] [place], [place] GFR/1.73 sq M predicted among blacks MDRD (S/P/Bld) [Vol rate/Area] 50.4 mL/min/{1.73_m2} Abnormal >60 [facility] Comment on above: Performed By: #### C RTGUSTAVO, OSMGUSTAVO, NAURR #### [address] [place], [place] GFR/1.73 sq M predicted among non-blacks MDRD (S/P/Bld) [Vol rate/Area] 43.5 mL/min/{1.73_m2} Abnormal >60 [facility] Comment on above: Result Comment: KDIG O guidelines provide the following GFR categories: Stage GFR(ml/min/1.73 m2) Terms G1 >=90 Normal or high G2 60-89 Mildly decreased* G3a 45-59 Mildly to moderately decreased G3b 30-44 Moderately to severely decreased G4 15-29 Severely decreased G5 <15 Kidney failure *Relative to young adult level. In the absence of evidence of kidney damage, neither GFR category G1 nor G2 fulfill the criteria for CKD. The CKD-EPI equation is validated in individuals 18 years of age and older. Currently the best equation for estimating glomerular filtration rate (GFR) from serum creatinine in children is the Bedside Lee equation. It is less accurate in patients with extremes of muscle mass, restriction of dietary protein, ingestion of creatine, extra-renal metabolism of creatinine, or treatment with medications that affect renal tubular creatinine secretion. Performed By: #### C ASHLEY GARCIA NAURR #### [address] Glucose [Mass/Vol] 124 mg/dL High 70-100 [facility] Comment on above: Performed By: #### C ASHLEY GARCIA, NAURR #### [address] [address] [place], [place] Urea nitrogen [Mass/Vol] 35 mg/dL High 7-20 [facility] Comment on above: Performed By: #### C ASHLEY GARCIA, NAURR #### [address] Chloride [Moles/Vol] 111 mmol/L High 98-[address] [facility] Comment on above: Performed By: #### C ASHLEY GARCIA, NAURR #### [address] [place] [address] [place], [place] Potassium [Moles/Vol] 2.9 mmol/L Low 3.5-5.1 [facility] Comment on above: Performed By: #### C ASHLEY GARCIA, NAURR #### [address] Sodium [Moles/Vol] 139 mmol/L Normal 135-145 [facility] Comment on above: Performed By: #### C RTASHLEY CHEN, NAURR #### [address] [place] [address] [place], [place] CR Abdomen APon 09-22-2020 CR Abdomen AP Patient Name: BRITTA YOUNG Diagnostic Radiology ACCESSION EXAM DATE/TIME PROCEDURE ORDERING PROVIDER [id number] 09/22/2020 07:54 EST CR Abdomen AP MD SALMON KEVIN CPT code 43446 Reason For Exam (CR Abdomen AP) ileus Report SUPINE ABDOMEN (KUB) CLINICAL INDICATION: Ileus A supine plain film of the abdomen was obtained. COMPARISON: 09/21/2020 FINDINGS: Previously noted feeding tube has been advanced, now terminating in expected location of the distal stomach or proximal duodenum. The bowel demonstrates a nonspecific gas pattern. There has been some improvement of previously noted mildly distended air-filled loops of small bowel within the left side of the abdomen. Free air under the diaphragm cannot be assessed on this supine view. Surgical nerissa over the abdomen are again noted. No pathologic calcifications are seen. Bony structures are grossly unremarkable. IMPRESSION: Previously noted feeding tube has been advanced, now terminating in the distal stomach or proximal duodenum. Nonspecific bowel gas pattern. There appears to be some improvement of previously noted distended air-filled loops of small bowel within the left side of the abdomen. Report Dictated on Final Dictated: 09/22/2020 7:52 am Dictating Physician: MD GUERRA JONATHAN R Signed Date and Time: 09/22/2020 7:53 am Signed by: MD GUERRA JONATHAN R Transcribed Date and Time: 09/22/2020 7:52 Normal [facility] Hemogram w/ Autodiffon 09-22 Abs Baso Cnt 0.0 10*3/uL Normal 0.0-0.2 [facility] Comment on above: Performed By: #### C ASHLEY GARCIA NAURR #### [address] [address] Abs Neutrophile Cnt 11.9 10*3/uL High 1.8-7.0 [facility] Comment on above: Performed By: #### C ASHLEY GARCIA NAURR #### [address] [address] Basophils/100 WBC (Bld) 0.2 % Normal 0.0-2.0 [facility] Comment on above: Performed By: #### C ASHLEY GARCIA NAURR #### [facility] [address] [place], [place] Eosinophils (Bld) [#/Vol] 0.2 10*3/uL Normal 0.0-0.5 [facility] Comment on above: Performed By: #### C ASHLEY GARCIA, NAURR #### [address] [place], [place] Eosinophils/100 WBC (Bld) 1.3 % Normal 1.0-6.0 [facility] Comment on above: Performed By: #### C ASHLEY GARCIA NAURR #### [address] [place], [place] Erythrocyte distribution width (RBC) [Ratio] 19.6 % High 11.5-14.5 [facility] Comment on above: Performed By: #### C ASHLEY GARCIA, NAURR #### [address] [place], [place] Granulocytes/100 WBC (Bld) 84.2 % High 40.0-80.0 [facility] Comment on above: Performed By: #### C ASHLEY GARCIA, NAURR #### [address] [place], [place] Hematocrit (Bld) [Volume fraction] 27.6 % Low 35.0-47.0 [facility] Comment on above: Performed By: #### C ASHLEY GARCIA, NAURR #### [address] [place], [place] Hemoglobin (Bld) [Mass/Vol] 8.9 g/dL Low 11.7-16.0 [facility] Comment on above: Performed By: #### C ASHLEY GARCIA, NAURR #### [address] [place], [place] Lymphocytes (Bld) [#/Vol] 1.0 10*3/uL Normal 1.0-4.3 [facility] Comment on above: Performed By: #### C ASHLEY GARCIA, NAURR #### [address] [place], [place] Lymphocytes/100 WBC (Bld) 6.8 % Low 20.0-40.0 [facility] Comment on above: Performed By: #### C ASHLEY GARCIA, NAURR #### [place] [address] [place], [place] MCH (RBC) [Entitic mass] 31.5 pg Normal 26.0-34.0 [facility] Comment on above: Performed By: #### C ASHLEY GARCIA, NAURR #### [place] [address] [address] [place] MCHC (RBC) [Mass/Vol] 32.3 % Normal 32.0-36.0 [facility] Comment on above: Performed By: #### C ASHLEY GARCIA, NAURR #### [address] [address] [place], [place] MCV (RBC) [Entitic vol] 97.7 fL Normal 79.0-98.0 [facility] Comment on above: Performed By: #### C ASHLEY GARCIA, NAURR #### [address] [address] [place], [place] Monocytes (Bld) [#/Vol] 1.1 10*3/uL High 0.0-0.8 [facility] Comment on above: Performed By: #### C RTGUSTAVO, OSMGUSTAVO, NAURR #### [address] [address] [address] [place], [place] Monocytes/100 WBC (Bld) 7.5 % Normal 2.0-10.0 [facility] Comment on above: Performed By: #### C RTASHLEY CHEN, NAURR #### [address] [address] [address] [place], [place] Platelet mean volume (Bld) [Entitic vol] 10.6 fL High 7.4-10.4 [facility] Comment on above: Performed By: #### C RTASHLEY CHEN, NAURR #### [address] [address] [place], [place] Platelets (Bld) [#/Vol] 162 10*3/uL Normal 140-440 [facility] Comment on above: Performed By: #### C ASHLEY GARCIA, NAURR #### [address] [address] [place], [place] RBC (Bld) [#/Vol] 2.82 10*6/uL Low 3.80-5.20 [facility] Comment on above: Performed By: #### C ASHLEY GARCIA, NAURR #### [address] [address] [address] [place], [place] WBC (Bld) [#/Vol] 14.1 10*3/uL High 3.6-10.7 [facility] Comment on above: Performed By: #### C ASHLEY GARCIA NAURR #### [address] [address] [address] [place], [place] Magnesiumon 09-22-2020 Magnesium [Mass/Vol] 2.1 mg/dL Normal 1.6-2.[address] [facility] Comment on above: Performed By: #### C ASHLEY GARCIA NAURR #### [address] [address] [address] [place], [place] Phosphoruson 09-22-2020 Phosphate [Mass/Vol] 4.6 mg/dL High 2.5-4.[address] [facility] Comment on above: Performed By: #### C ASHLEY GARCIA, NAURR #### [address] [address] [address] [place], [place] Basic Metabolic Panelon 08-31 Calcium [Mass/Vol] 8.7 mg/dL Normal 8.4-10.4 [facility] Comment on above: Performed By: #### B GLU #### [address] [address] [place], [place] Glucose [Mass/Vol] 112 mg/dL High 70-100 [facility] Comment on above: Performed By: #### B GLU #### [address] [address] [address] [place], [place] Urea nitrogen [Mass/Vol] 27 mg/dL High 7-20 [facility] Comment on above: Performed By: #### B GLU #### [facility] [address] [place], [place] Anion gap [Moles/Vol] 9 mmol/L Normal 3-13 [facility] Comment on above: Performed By: #### B GLU #### [facility] [address] [place], [place] CO2 [Moles/Vol] 21 mmol/L Low 22-30 [facility] Comment on above: Performed By: #### B GLU #### [facility] [address] [place], [place] Creatinine [Mass/Vol] 1.32 mg/dL High 0.52-1.25 [facility] Comment on above: Performed By: #### B GLU #### [facility] [address] [place], [place] GFR/1.73 sq M predicted among blacks MDRD (S/P/Bld) [Vol rate/Area] 49.0 mL/min/{1.73_m2} Abnormal >60 [facility] Comment on above: Performed By: #### B GLU #### [facility] [address] [place], [place] GFR/1.73 sq M predicted among non-blacks MDRD (S/P/Bld) [Vol rate/Area] 42.3 mL/min/{1.73_m2} Abnormal >60 [facility] Comment on above: Result Comment: KDIG O guidelines provide the following GFR categories: Stage GFR(ml/min/1.73 m2) Terms G1 >=90 Normal or high G2 60-89 Mildly decreased* G3a 45-59 Mildly to moderately decreased G3b 30-44 Moderately to severely decreased G4 15-29 Severely decreased G5 <15 Kidney failure *Relative to young adult level. In the absence of evidence of kidney damage, neither GFR category G1 nor G2 fulfill the criteria for CKD. The CKD-EPI equation is validated in individuals 18 years of age and older. Currently the best equation for estimating glomerular filtration rate (GFR) from serum creatinine in children is the Bedside Lee equation. It is less accurate in patients with extremes of muscle mass, restriction of dietary protein, ingestion of creatine, extra-renal metabolism of creatinine, or treatment with medications that affect renal tubular creatinine secretion. Performed By: #### B GLU #### [facility] [address] [place], [place] Chloride [Moles/Vol] 111 mmol/L High 98-[address] [facility] Comment on above: Performed By: #### B GLU #### [facility] [address] [place], [place] Potassium [Moles/Vol] 3.2 mmol/L Low 3.5-5.1 [facility] Comment on above: Performed By: #### B GLU #### [facility] [address] [place], [place] Sodium [Moles/Vol] 141 mmol/L Normal 135-145 [facility] Comment on above: Performed By: #### B GLU #### [facility] [address] [place], [place] CR Abdomen APon 09-21-2020 CR Abdomen AP Patient Name: BRITTA YOUNG Diagnostic Radiology ACCESSION EXAM DATE/TIME PROCEDURE ORDERING PROVIDER [id number] 09/21/2020 06:25 EST CR Abdomen AP MD SALMON KEVIN CPT code 43167 Reason For Exam (CR Abdomen AP) ileus Report SUPINE ABDOMEN (KUB) CLINICAL INDICATION: Ileus. Abdominal distention. A supine plain film of the abdomen was obtained. COMPARISON: 09/20/2020 FINDINGS: Persistent air dilated segments of small bowel in the left side of the abdomen. Small bowel segments measure up to 5 cm in diameter. Borderline dilatation of small bowel segments in the right lower abdomen. Air is present in the distal colon and rectum. NG tube tip is just distal to the GE junction. IMPRESSION: Persistent dilatation of small bowel segments, more so on the left side the abdomen. No significant interval change. Report Dictated on Final Dictated: 09/21/2020 8:52 am Dictating Physician: MD OROPEZA LAURA Signed Date and Time: 09/21/2020 8:54 am Signed by: MD JOHNNA, TOÑA Transcribed Date and Time: 09/21/2020 8:52 Normal [facility] Calcium,Ionizedon 09-21-2020 Ionized Ca,Measured 4.60 mg/dL Normal 4.30-5.20 [facility] Comment on above: Performed By: #### B GLU #### [facility] [address] [place], [place] pH, Ionized Calcium 7.51 High 7.31-7.46 [facility] Comment on above: Performed By: #### B GLU #### [facility] [address] [place], [place] Glucose,Bedsideon 09-21-2020 Glucose [Mass/Vol] 119 mg/dL High 70-100 [facility] Comment on above: Result Comment: Test performed by glucose meter. Results may be 10%-15% lower than serum/plasma values. (CLIA ID [id number]) Performed By: #### B GLU #### [facility] [address] [place], [place] Glucose [Mass/Vol] 128 mg/dL High 70-100 [facility] Comment on above: Result Comment: Test performed by glucose meter. Results may be 10%-15% lower than serum/plasma values. (CLIA ID [id number]) Performed By: #### B GLU #### [facility] [address] [place], [place] Hemogram w/ Autodiffon 09-21 Abs Baso Cnt 0.0 10*3/uL Normal 0.0-0.2 [facility] Comment on above: Performed By: #### B GLU #### [facility] [address] [place], [place] Abs Neutrophile Cnt 8.9 10*3/uL High 1.8-7.[address] [facility] Comment on above: Performed By: #### B GLU #### [facility] [address] [place], [place] Basophils/100 WBC (Bld) 0.4 % Normal 0.0-2.0 [facility] Comment on above: Performed By: #### B GLU #### [facility] [address] [place] [address] Eosinophils (Bld) [#/Vol] 0.2 10*3/uL Normal 0.0-0.5 [facility] Comment on above: Performed By: #### B GLU #### [facility] [address] [place] [address] Eosinophils/100 WBC (Bld) 1.9 % Normal 1.0-6.0 [facility] Comment on above: Performed By: #### B GLU #### [facility] [address] [place] [address] Erythrocyte distribution width (RBC) [Ratio] 19.5 % High 11.5-14.5 [facility] Comment on above: Performed By: #### B GLU #### [address] [place] [address] Granulocytes/100 WBC (Bld) 80.0 % Normal 40.0-80.0 [facility] Comment on above: Performed By: #### B GLU #### [facility] [address] [place] [address] Hematocrit (Bld) [Volume fraction] 25.5 % Low 35.0-47.0 [facility] Comment on above: Performed By: #### B GLU #### [facility] [address] [place] [address] Hemoglobin (Bld) [Mass/Vol] 8.2 g/dL Low 11.7-16.0 [facility] Comment on above: Performed By: #### B GLU #### [facility] [address] [place] [address] Lymphocytes (Bld) [#/Vol] 0.9 10*3/uL Low 1.0-4.3 [facility] Comment on above: Performed By: #### B GLU #### [facility] [address] [place] [address] Lymphocytes/100 WBC (Bld) 8.1 % Low 20.0-40.0 [facility] Comment on above: Performed By: #### B GLU #### [facility] [address] [place], [place] MCH (RBC) [Entitic mass] 31.4 pg Normal 26.0-34.0 [facility] Comment on above: Performed By: #### B GLU #### [facility] [address] [place], [place] MCHC (RBC) [Mass/Vol] 32.3 % Normal 32.0-36.0 [facility] Comment on above: Performed By: #### B GLU #### [address] [place], [place] MCV (RBC) [Entitic vol] 97.2 fL Normal 79.0-98.0 [facility] Comment on above: Performed By: #### B GLU #### [address] [place], [place] Monocytes (Bld) [#/Vol] 1.1 10*3/uL High 0.0-0.8 [facility] Comment on above: Performed By: #### B GLU #### [address] [place], [place] Monocytes/100 WBC (Bld) 9.6 % Normal 2.0-10.0 [facility] Comment on above: Performed By: #### B GLU #### [address] [place], [place] Platelet mean volume (Bld) [Entitic vol] 10.2 fL Normal 7.4-10.4 [facility] Comment on above: Performed By: #### B GLU #### [address] [place], [place] Platelets (Bld) [#/Vol] 143 10*3/uL Normal 140-440 [facility] Comment on above: Performed By: #### B GLU #### [address] [place], [place] RBC (Bld) [#/Vol] 2.63 10*6/uL Low 3.80-5.20 [facility] Comment on above: Performed By: #### B GLU #### [address] [place], [place] WBC (Bld) [#/Vol] 11.1 10*3/uL High 3.6-10.7 [facility] Comment on above: Performed By: #### B GLU #### [facility] [address] [place], [place] Hepatic Functionon 1 ALP [Catalytic activity/Vol] 51 U/L Normal 38-126 [facility] Comment on above: Performed By: #### B GLU #### [address] [place], [place] ALT [Catalytic activity/Vol] 13 U/L Normal 0-34 [facility] Comment on above: Result Comment: The ALT test is performed by an updated assay method. Please note that the reference intervals have been changed and are now sex specific. Performed By: #### B GLU #### [address] [place], [place] AST [Catalytic activity/Vol] 25 U/L Normal 15-46 [facility] Comment on above: Performed By: #### B GLU #### [address] [place], [place] Bilirubin [Mass/Vol] 0.6 mg/dL Normal 0.2-1.[address] [facility] Comment on above: Performed By: #### B GLU #### [facility] [address] [place], [place] Protein [Mass/Vol] 6.0 g/dL Low 6.3-8.2 [facility] Comment on above: Performed By: #### B GLU #### [address] [place], [place] Bilirubin.direct [Mass/Vol] 0.0 mg/dL Normal 0.0-0.3 [facility] Comment on above: Performed By: #### B GLU #### [facility] [address] [place], [place] Albumin [Mass/Vol] 2.8 g/dL Low 3.5-5.0 [facility] Comment on above: Performed By: #### B GLU #### [facility] [address] [place] [address] Magnesiumon 09-21-2020 Magnesium [Mass/Vol] 1.8 mg/dL Normal 1.6-2.[address] [facility] Comment on above: Performed By: #### B GLU #### [facility] [address] [place] [address] Phosphoruson 09-21-2020 Phosphate [Mass/Vol] 2.4 mg/dL Low 2.5-4.[address] [facility] Comment on above: Performed By: #### B GLU #### [facility] [address] [place] [address] RF Small Bowel w/ Serial Brandon mson 09-21-2020 RF Small Bowel w/ Serial Films Patient Name: BRITTA YOUNG Fluoroscopy ACCESSION EXAM DATE/TIME PROCEDURE ORDERING PROVIDER [id number] 09/21/2020 17:01 EST RF Small Bowel w/ Serial Deangelo GARCÍA, Films JOCELYNE CPT code 69124 Reason For Exam (RF Small Bowel w/ Serial Films) ileus Report SMALL BOWEL SERIES: CLINICAL INDICATION: Abdominal distention and vomiting. TECHNIQUE: Small bowel series was performed following ingestion of barium. Fluoroscopy was not. Five images were obtained. COMPARISON: Abdomen from one day ago and CT from FINDINGS: Roofing Technician supine radiograph of the abdomen demonstrates a gas-filled, dilated side of mostly small bowel left side of the abdomen and surgical clips are. No abnormal soft tissue calcifications are noted. The osseous structures are unremarkable. Images were obtained at two hours. The patient vomited at that time. There is minimal residual contrast. The referring physician was notified and the examination was concluded without further imaging. IMPRESSION: Contrast confined to the stomach only. Gaseous distention of small bowel loops again may reflect distal small bowel obstruction. Report Dictated on Final Dictated: 09/21/2020 7:09 pm Dictating Physician: MD BRIAN JEFFREY Signed Date and Time: 09/21/2020 7:16 pm Signed by: MD BRIAN JEFFREY Transcribed Date and Time: 09/21/2020 7:09 Normal [facility] Triglycerideon 09-21-2020 Triglyceride [Mass/Vol] 153 mg/dL Abnormal <150 [facility] Comment on above: Performed By: #### B GLU #### [facility] [address] [place], [place] Add on test from HISon 09-20 Add on test from HIS Rejected Normal [facility] Comment on above: Result Comment: Dupl icate Order Performed By: #### C RTGUSTAVO, ASHLEY, NAURR #### [facility] [address] [place], [place] Add on test from HIS Accepted Normal [facility] Comment on above: Result Comment: Spec imen available & acceptable for analysis. Performed By: #### M G3, PHOS3, BMP3, HEMDF #### [address] [place], [place] Basic Metabolic Panelon 08-31 Calcium [Mass/Vol] 8.7 mg/dL Normal 8.4-10.4 [facility] Comment on above: Performed By: #### M G3, PHOS3, BMP3, HEMDF #### [address] [place], [place] Glucose [Mass/Vol] 95 mg/dL Normal 70-100 [facility] Comment on above: Performed By: #### M G3, PHOS3, BMP3, HEMDF #### [facility] [address] [place], [place] Anion gap [Moles/Vol] 7 mmol/L Normal 3-13 [facility] Comment on above: Performed By: #### M G3, PHOS3, BMP3, HEMDF #### [facility] [address] [place], [place] CO2 [Moles/Vol] 24 mmol/L Normal 22-30 [facility] Comment on above: Performed By: #### M G3, PHOS3, BMP3, HEMDF #### [address] [place], [place] Creatinine [Mass/Vol] 1.83 mg/dL High 0.52-1.25 [facility] Comment on above: Performed By: #### M G3, PHOS3, BMP3, HEMDF #### [facility] [address] [place] [address] GFR/1.73 sq M predicted among blacks MDRD (S/P/Bld) [Vol rate/Area] 33.0 mL/min/{1.73_m2} Abnormal >60 [facility] Comment on above: Performed By: #### M G3, PHOS3, BMP3, HEMDF #### [facility] [address] [place] [address] GFR/1.73 sq M predicted among non-blacks MDRD (S/P/Bld) [Vol rate/Area] 28.5 mL/min/{1.73_m2} Abnormal >60 [facility] Comment on above: Result Comment: KDIG O guidelines provide the following GFR categories: Stage GFR(ml/min/1.73 m2) Terms G1 >=90 Normal or high G2 60-89 Mildly decreased* G3a 45-59 Mildly to moderately decreased G3b 30-44 Moderately to severely decreased G4 15-29 Severely decreased G5 <15 Kidney failure *Relative to young adult level. In the absence of evidence of kidney damage, neither GFR category G1 nor G2 fulfill the criteria for CKD. The CKD-EPI equation is validated in individuals 18 years of age and older. Currently the best equation for estimating glomerular filtration rate (GFR) from serum creatinine in children is the Bedside Lee equation. It is less accurate in patients with extremes of muscle mass, restriction of dietary protein, ingestion of creatine, extra-renal metabolism of creatinine, or treatment with medications that affect renal tubular creatinine secretion. Performed By: #### M G3, PHOS3, BMP3, HEMDF #### [facility] [address] [place] [address] Urea nitrogen [Mass/Vol] 34 mg/dL High 7-20 [facility] Comment on above: Performed By: #### M G3, PHOS3, BMP3, HEMDF #### [facility] [address] [place] [address] Chloride [Moles/Vol] 108 mmol/L High 98-[address] [facility] Comment on above: Performed By: #### M G3, PHOS3, BMP3, HEMDF #### [facility] [address] [place] [address] Potassium [Moles/Vol] 3.4 mmol/L Low 3.5-5.1 [facility] Comment on above: Performed By: #### M G3, PHOS3, BMP3, HEMDF #### [facility] [address] [place] [address] Sodium [Moles/Vol] 139 mmol/L Normal 135-145 [facility] Comment on above: Performed By: #### M G3, PHOS3, BMP3, HEMDF #### [facility] [address] [place] [address] CR Abdomen APon 09-20-2020 CR Abdomen AP Patient Name: BRITTA YOUNG Diagnostic Radiology ACCESSION EXAM DATE/TIME PROCEDURE ORDERING PROVIDER [id number] 09/20/2020 13:59 EST CR Abdomen AP Deangelo REYNA SARAH CPT code 92989 Reason For Exam (CR Abdomen AP) NG tube replacement Report Indication: NG placement. Findings and impression: Abdomen single view shows an NG tube and the tip is pointing inferiorly, below the level of the hemidiaphragm, just left of midline. No free air seen. Please confirm the function and positioning clinically. Report Dictated on Final Dictated: 09/20/2020 2:10 pm Dictating Physician: MD ROJAS JOHN Signed Date and Time: 09/20/2020 2:10 pm Signed by: MD ROJAS JOHN Transcribed Date and Time: 09/20/2020 2:10 Normal [facility] CR Abdomen AP Patient Name: BRITTA YOUNG Diagnostic Radiology ACCESSION EXAM DATE/TIME PROCEDURE ORDERING PROVIDER [id number] 09/20/2020 09:25 EST CR Abdomen AP MD SALMON KEVIN CPT code 27077 Reason For Exam (CR Abdomen AP) ileus Report Indication: Ileus. Findings and impression: Abdomen single view compared to 09/19/2020. There is essentially stable appearance of distended loops including small bowel suspicious for ileus, nonspecific. No free air seen. Follow-up recommended. Report Dictated on Final Dictated: 09/20/2020 9:57 am Dictating Physician: MD ROJAS JOHN Signed Date and Time: 09/20/2020 9:58 am Signed by: MD ROJAS JOHN Transcribed Date and Time: 09/20/2020 9:57 Normal [facility] Hemogram w/ Autodiffon 09-20 Abs Baso Cnt 0.0 10*3/uL Normal 0.0-0.2 [facility] Comment on above: Performed By: #### M G3, PHOS3, BMP3, HEMDF #### [address] [place] [address] Abs Neutrophile Cnt 8.2 10*3/uL High 1.8-7.[address] [facility] Comment on above: Performed By: #### M G3, PHOS3, BMP3, HEMDF #### [address] [place] [address] Basophils/100 WBC (Bld) 0.4 % Normal 0.0-2.0 [facility] Comment on above: Performed By: #### M G3, PHOS3, BMP3, HEMDF #### [address] [address] [place] [address] Eosinophils (Bld) [#/Vol] 0.3 10*3/uL Normal 0.0-0.5 [facility] Comment on above: Performed By: #### M G3, PHOS3, BMP3, HEMDF #### [facility] [address] [place] [address] Eosinophils/100 WBC (Bld) 2.7 % Normal 1.0-6.0 [facility] Comment on above: Performed By: #### M G3, PHOS3, BMP3, HEMDF #### [address] [address] [place] [address] Erythrocyte distribution width (RBC) [Ratio] 19.6 % High 11.5-14.5 [facility] Comment on above: Performed By: #### M G3, PHOS3, BMP3, HEMDF #### [address] [place], [place] Granulocytes/100 WBC (Bld) 80.5 % High 40.0-80.0 [facility] Comment on above: Performed By: #### M G3, PHOS3, BMP3, HEMDF #### [address] [place], [place] Hematocrit (Bld) [Volume fraction] 25.2 % Low 35.0-47.0 [facility] Comment on above: Performed By: #### M G3, PHOS3, BMP3, HEMDF #### [address] [address] [place], [place] Hemoglobin (Bld) [Mass/Vol] 8.2 g/dL Low 11.7-16.0 [facility] Comment on above: Performed By: #### Ar[place] G3, PHOS3, BMP3, HEMDF #### [address] [place], [place] Lymphocytes (Bld) [#/Vol] 0.9 10*3/uL Low 1.0-4.3 [facility] Comment on above: Performed By: #### M G3, PHOS3, BMP3, HEMDF #### [address] Lymphocytes/100 WBC (Bld) 8.6 % Low 20.0-40.0 [facility] Comment on above: Performed By: #### M G3, PHOS3, BMP3, HEMDF #### [address] [place], [place] MCH (RBC) [Entitic mass] 31.7 pg Normal 26.0-34.0 [facility] Comment on above: Performed By: #### M G3, PHOS3, BMP3, HEMDF #### [address] [address] [place], [place] MCHC (RBC) [Mass/Vol] 32.5 % Normal 32.0-36.0 [facility] Comment on above: Performed By: #### M G3, PHOS3, BMP3, HEMDF #### [address] [place], [place] MCV (RBC) [Entitic vol] 97.3 fL Normal 79.0-98.0 [facility] Comment on above: Performed By: #### M G3, PHOS3, BMP3, HEMDF #### [address] [address] [place], [place] Monocytes (Bld) [#/Vol] 0.8 10*3/uL Normal 0.0-0.8 [facility] Comment on above: Performed By: #### M G3, PHOS3, BMP3, HEMDF #### [address] [address] [place], [place] Monocytes/100 WBC (Bld) 7.8 % Normal 2.0-10.0 [facility] Comment on above: Performed By: #### M G3, PHOS3, BMP3, HEMDF #### [address] [place], [place] Platelet mean volume (Bld) [Entitic vol] 9.8 fL Normal 7.4-10.4 [facility] Comment on above: Performed By: #### M G3, PHOS3, BMP3, HEMDF #### [address] [address] [place], [place] Platelets (Bld) [#/Vol] 151 10*3/uL Normal 140-440 [facility] Comment on above: Performed By: #### M G3, PHOS3, BMP3, HEMDF #### [address] [place], [place] RBC (Bld) [#/Vol] 2.59 10*6/uL Low 3.80-5.20 [facility] Comment on above: Performed By: #### M G3, PHOS3, BMP3, HEMDF #### [address] WBC (Bld) [#/Vol] 10.2 10*3/uL Normal 3.6-10.7 [facility] Comment on above: Performed By: #### M G3, PHOS3, BMP3, HEMDF #### [address] [place], [place] Magnesiumon 09-20-2020 Magnesium [Mass/Vol] 1.8 mg/dL Normal 1.6-2.[address] [facility] Comment on above: Performed By: #### M G3, PHOS3, BMP3, HEMDF #### [address] [place], [place] Phosphoruson 09-20-2020 Phosphate [Mass/Vol] 3.0 mg/dL Normal 2.5-4.[address] [facility] Comment on above: Performed By: #### M G3, PHOS3, BMP3, HEMDF #### [address] [place], [place] Basic Metabolic Panelon 08-31 Calcium [Mass/Vol] 8.7 mg/dL Normal 8.4-10.4 [facility] Comment on above: Performed By: #### M G3, PHOS3, BMP3, HEMDF #### [address] [place], [place] Glucose [Mass/Vol] 117 mg/dL High 70-100 [facility] Comment on above: Performed By: #### M G3, PHOS3, BMP3, HEMDF #### [address] [place], [place] Urea nitrogen [Mass/Vol] 42 mg/dL High 7-20 [facility] Comment on above: Performed By: #### M G3, PHOS3, BMP3, HEMDF #### [address] [place], [place] Anion gap [Moles/Vol] 9 mmol/L Normal 3-13 [facility] Comment on above: Performed By: #### M G3, PHOS3, BMP3, HEMDF #### [address] [place], [place] CO2 [Moles/Vol] 25 mmol/L Normal 22-30 [facility] Comment on above: Performed By: #### M G3, PHOS3, BMP3, HEMDF #### [address] Creatinine [Mass/Vol] 2.44 mg/dL High 0.52-1.25 [facility] Comment on above: Performed By: #### M G3, PHOS3, BMP3, HEMDF #### [address] GFR/1.73 sq M predicted among blacks MDRD (S/P/Bld) [Vol rate/Area] 23.3 mL/min/{1.73_m2} Abnormal >60 [facility] Comment on above: Performed By: #### M G3, PHOS3, BMP3, HEMDF #### [address] GFR/1.73 sq M predicted among non-blacks MDRD (S/P/Bld) [Vol rate/Area] 20.1 mL/min/{1.73_m2} Abnormal >60 [facility] Comment on above: Result Comment: KDIG O guidelines provide the following GFR categories: Stage GFR(ml/min/1.73 m2) Terms G1 >=90 Normal or high G2 60-89 Mildly decreased* G3a 45-59 Mildly to moderately decreased G3b 30-44 Moderately to severely decreased G4 15-29 Severely decreased G5 <15 Kidney failure *Relative to young adult level. In the absence of evidence of kidney damage, neither GFR category G1 nor G2 fulfill the criteria for CKD. The CKD-EPI equation is validated in individuals 18 years of age and older. Currently the best equation for estimating glomerular filtration rate (GFR) from serum creatinine in children is the Bedside Lee equation. It is less accurate in patients with extremes of muscle mass, restriction of dietary protein, ingestion of creatine, extra-renal metabolism of creatinine, or treatment with medications that affect renal tubular creatinine secretion. Performed By: #### M G3, PHOS3, BMP3, HEMDF #### [address] Chloride [Moles/Vol] 106 mmol/L Normal 98-[address] [facility] Comment on above: Performed By: #### M G3, PHOS3, BMP3, HEMDF #### [address] [address] Potassium [Moles/Vol] 3.6 mmol/L Normal 3.5-5.1 [facility] Comment on above: Performed By: #### M G3, PHOS3, BMP3, HEMDF #### [facility] [address] [place] [address] Sodium [Moles/Vol] 139 mmol/L Normal 135-145 [facility] Comment on above: Performed By: #### M G3, PHOS3, BMP3, HEMDF #### [facility] [address] [place] [address] CR Abdomen APon 09-19-2020 CR Abdomen AP Patient Name: BRITTA YOUNG Diagnostic Radiology ACCESSION EXAM DATE/TIME PROCEDURE ORDERING PROVIDER [id number] 09/19/2020 11:49 EST CR Abdomen AP LAKESHA AYALA CPT code 04694 Reason For Exam (CR Abdomen AP) NG tube placement Report Abdomen: 09/19/2020. Clinical Information: Nasogastric tube placement. Findings: A single supine view of the abdomen was compared to the earlier study. A nasogastric tube is now present with the tip in the region of the stomach. There is no other interval change when compared to the earlier study same date. Report Dictated on Final Dictated: 09/19/2020 12:10 pm Dictating Physician: MD OLIVARES RISA Signed Date and Time: 09/19/2020 12:11 pm Signed by: MD OLIVARES RISA Transcribed Date and Time: 09/19/2020 12:10 Normal [facility] CR Abdomen AP Patient Name: BRITTA YOUNG Diagnostic Radiology ACCESSION EXAM DATE/TIME PROCEDURE ORDERING PROVIDER [id number] 09/19/2020 08:47 EST CR Abdomen AP MD CUENCA ANDREW CPT code 65449 Reason For Exam (CR Abdomen AP) abdominal distention Report CLINICAL INFORMATION: Abdominal pain and distention. Recent surgery. Supine KUB is provided. The examination is first submitted to dc for interpretation on 10/01/2020. FINDINGS: Skin nerissa are present consistent with recent laparotomy. There is mild to moderate dilatation of small bowel loops. Some colonic air is thought visualized. The stomach is mildly distended. IMPRESSION: 1. Findings are most consistent with a postoperative ileus. 2. Significant air-fluid levels or free air cannot be evaluated on this supine-only study. Report Dictated on Workstation: [id number] Final Dictated: 10/01/2020 3:07 pm Dictating Physician: MD CABRAL JEFFREY Signed Date and Time: 10/01/2020 3:08 pm Signed by: MD CABRAL JEFFREY Transcribed Date and Time: 10/01/2020 3:07 Normal [facility] Creatinine, Ur Randomon 08-31 Creatinine, Ur Random 158.3 mg/dL Normal No Range [facility] Comment on above: Performed By: #### C RTGUSTAVO, OSMGUSTAVO, NAURR #### [address] [address] [place], [place] Hemogram w/ Autodiffon 09-19 Abs Baso Cnt 0.0 10*3/uL Normal 0.0-0.2 [facility] Comment on above: Performed By: #### M G3, PHOS3, BMP3, HEMDF #### [address] [address] [place], [place] Abs Neutrophile Cnt 10.2 10*3/uL High 1.8-7.0 [facility] Comment on above: Performed By: #### M G3, PHOS3, BMP3, HEMDF #### [address] [address] [place], [place] Basophils/100 WBC (Bld) 0.2 % Normal 0.0-2.0 [facility] Comment on above: Performed By: #### M G3, PHOS3, BMP3, HEMDF #### [address] [address] [place], [place] Eosinophils (Bld) [#/Vol] 0.2 10*3/uL Normal 0.0-0.5 [facility] Comment on above: Performed By: #### M G3, PHOS3, BMP3, HEMDF #### [address] [address] [address] [place], [place] Eosinophils/100 WBC (Bld) 1.2 % Normal 1.0-6.0 [facility] Comment on above: Performed By: #### M G3, PHOS3, BMP3, HEMDF #### [address] [address] [address] [place], [place] Erythrocyte distribution width (RBC) [Ratio] 19.9 % High 11.5-14.5 [facility] Comment on above: Performed By: #### M G3, PHOS3, BMP3, HEMDF #### [address] [address] [address] [place], [place] Granulocytes/100 WBC (Bld) 82.1 % High 40.0-80.0 [facility] Comment on above: Performed By: #### M G3, PHOS3, BMP3, HEMDF #### [address] [address] [address] [place], [place] Hematocrit (Bld) [Volume fraction] 25.3 % Low 35.0-47.0 [facility] Comment on above: Performed By: #### M G3, PHOS3, BMP3, HEMDF #### [address] [address] [address] [place], [place] Hemoglobin (Bld) [Mass/Vol] 8.2 g/dL Low 11.7-16.0 [facility] Comment on above: Performed By: #### M G3, PHOS3, BMP3, HEMDF #### [address] [address] [address] [place], [place] Lymphocytes (Bld) [#/Vol] 0.8 10*3/uL Low 1.0-4.3 [facility] Comment on above: Performed By: #### M G3, PHOS3, BMP3, HEMDF #### [address] [address] [place], [place] Lymphocytes/100 WBC (Bld) 6.5 % Low 20.0-40.0 [facility] Comment on above: Performed By: #### M G3, PHOS3, BMP3, HEMDF #### [address] [address] [address] [place], [place] MCH (RBC) [Entitic mass] 31.5 pg Normal 26.0-34.0 [facility] Comment on above: Performed By: #### M G3, PHOS3, BMP3, HEMDF #### [facility] [address] [place], [place] MCHC (RBC) [Mass/Vol] 32.3 % Normal 32.0-36.0 [facility] Comment on above: Performed By: #### M G3, PHOS3, BMP3, HEMDF #### [address] [address] [address] [place], [place] MCV (RBC) [Entitic vol] 97.7 fL Normal 79.0-98.0 [facility] Comment on above: Performed By: #### M G3, PHOS3, BMP3, HEMDF #### [address] [address] [address] [place], [place] Monocytes (Bld) [#/Vol] 1.2 10*3/uL High 0.0-0.8 [facility] Comment on above: Performed By: #### M G3, PHOS3, BMP3, HEMDF #### [address] [address] [address] [place], [place] Monocytes/100 WBC (Bld) 10.0 % Normal 2.0-10.0 [facility] Comment on above: Performed By: #### M G3, PHOS3, BMP3, HEMDF #### [address] [address] [address] [place], [place] Platelet mean volume (Bld) [Entitic vol] 9.9 fL Normal 7.4-10.4 [facility] Comment on above: Performed By: #### M G3, PHOS3, BMP3, HEMDF #### [address] [address] [address] [place], [place] Platelets (Bld) [#/Vol] 154 10*3/uL Normal 140-440 [facility] Comment on above: Performed By: #### M G3, PHOS3, BMP3, HEMDF #### [address] [address] [address] [place], [place] RBC (Bld) [#/Vol] 2.59 10*6/uL Low 3.80-5.20 [facility] Comment on above: Performed By: #### M G3, PHOS3, BMP3, HEMDF #### [facility] [address], [place] WBC (Bld) [#/Vol] 12.4 10*3/uL High 3.6-10.7 [facility] Comment on above: Performed By: #### M G3, PHOS3, BMP3, HEMDF #### [facility] [address], [place] Leukodepleted Red Cellson Leukodepleted Red Cells Leukodepleted Re d Cells: [id number] transfused 09/17/20 14:45 MSS1 Unit Blood Type: B Unit Blood Rh: POS Blood Product Code: AS1 Unit Number: [id number] Unit Status: transfused Barcoded Unit Number: =[id number] Barcoded Product Code: = Barcoded ABO/Rh: =%7300 Unit Expiration: Unit Volume Transfused: 300 Unit Transfusion Start Date/Time: Leukodepleted Red Cells: [id number] transfused 09/17/20 14:45 MSS1 Unit Blood Type: B Unit Blood Rh: POS Blood Product Code: AS1 Unit Number: [id number] Unit Status: transfused Barcoded Unit Number: =[id number] Barcoded Product Code: = Barcoded ABO/Rh: =%7300 Unit Expiration: Unit Volume Transfused: 300 Unit Transfusion Start Date/Time: Leukodepleted Red Cells: [id number] released 09/19/20 05:44 ERR Unit Blood Type: B Unit Blood Rh: POS Blood Product Code: AS1 Unit Number: [id number] Unit Status: released Barcoded Unit Number: =[id number] Barcoded Product Code: = Barcoded ABO/Rh: =%7300 Unit Expiration: [id number] Leukodepleted Red Cells: [id number] released 09/19/20 05:44 ERR Unit Blood Type: B Unit Blood Rh: POS Blood Product Code: AS1 Unit Number: [id number] Unit Status: released Barcoded Unit Number: =[id number] Barcoded Product Code: = Barcoded ABO/Rh: =%7300 Unit Expiration: [id number] Normal [facility] Comment on above: Performed By: #### L ACT3, PT/AP #### [address] [address] [address] [place], [place] Magnesiumon 09-19-2020 Magnesium [Mass/Vol] 2.0 mg/dL Normal 1.6-2.[address] [facility] Comment on above: Performed By: #### M G3, PHOS3, BMP3, HEMDF #### [address] [address] [address] [place], [place] Osmolality,Urineon Osmolality,Urine 477 mosm/kg Normal 300-1000 [facility] Comment on above: Result Comment: Repe ated Performed By: #### C ASHLEY GARCIA, NAURR #### [address] [address] [address] [place], [place] Sodium, Ur Randomon 09-19-19 21 Sodium [Moles/Vol] 16 mmol/L Low 30-90 [facility] Comment on above: Performed By: #### C ASHLEY GARCIA, NAURR #### [address] [address] [place] [address] Basic Metabolic Panelon 08-31 Anion gap [Moles/Vol] 8 mmol/L Normal 3-13 [facility] Comment on above: Performed By: #### M G3, PHOS3, BMP3, HEMDF #### [address] [address] [address] [place], [place] Calcium [Mass/Vol] 8.7 mg/dL Normal 8.4-10.4 [facility] Comment on above: Performed By: #### M G3, PHOS3, BMP3, HEMDF #### [address] [address] [address] [place], [place] CO2 [Moles/Vol] 26 mmol/L Normal 22-30 [facility] Comment on above: Performed By: #### M G3, PHOS3, BMP3, HEMDF #### [facility] [address] [place] [address] Glucose [Mass/Vol] 117 mg/dL High 70-100 [facility] Comment on above: Performed By: #### M G3, PHOS3, BMP3, HEMDF #### [facility] [address] [place] [address] Urea nitrogen [Mass/Vol] 38 mg/dL High 7-20 [facility] Comment on above: Performed By: #### M G3, PHOS3, BMP3, HEMDF #### [facility] [address] [place] [address] Creatinine [Mass/Vol] 2.11 mg/dL High 0.52-1.25 [facility] Comment on above: Performed By: #### M G3, PHOS3, BMP3, HEMDF #### [facility] [address] [place] [address] GFR/1.73 sq M predicted among blacks MDRD (S/P/Bld) [Vol rate/Area] 27.8 mL/min/{1.73_m2} Abnormal >60 [facility] Comment on above: Performed By: #### M G3, PHOS3, BMP3, HEMDF #### [facility] [address] [place] [address] GFR/1.73 sq M predicted among non-blacks MDRD (S/P/Bld) [Vol rate/Area] 24.0 mL/min/{1.73_m2} Abnormal >60 [facility] Comment on above: Result Comment: KDIG O guidelines provide the following GFR categories: Stage GFR(ml/min/1.73 m2) Terms G1 >=90 Normal or high G2 60-89 Mildly decreased* G3a 45-59 Mildly to moderately decreased G3b 30-44 Moderately to severely decreased G4 15-29 Severely decreased G5 <15 Kidney failure *Relative to young adult level. In the absence of evidence of kidney damage, neither GFR category G1 nor G2 fulfill the criteria for CKD. The CKD-EPI equation is validated in individuals 18 years of age and older. Currently the best equation for estimating glomerular filtration rate (GFR) from serum creatinine in children is the Bedside Lee equation. It is less accurate in patients with extremes of muscle mass, restriction of dietary protein, ingestion of creatine, extra-renal metabolism of creatinine, or treatment with medications that affect renal tubular creatinine secretion. Performed By: #### M G3, PHOS3, BMP3, HEMDF #### [address] [address] [address] [place], [place] Potassium [Moles/Vol] 4.1 mmol/L Normal 3.5-5.1 [facility] Comment on above: Performed By: #### M G3, PHOS3, BMP3, HEMDF #### [address] [address] [address] [place], [place] Sodium [Moles/Vol] 141 mmol/L Normal 135-145 [facility] Comment on above: Performed By: #### M G3, PHOS3, BMP3, HEMDF #### [address] [address] [address] [place], [place] Chloride [Moles/Vol] 107 mmol/L Normal 98-[address] [facility] Comment on above: Performed By: #### M G3, PHOS3, BMP3, HEMDF #### [address] [address] [address] [place], [place] Hemogram w/ Autodiffon 09-18 Abs Baso Cnt 0.0 10*3/uL Normal 0.0-0.2 [facility] Comment on above: Performed By: #### M G3, PHOS3, BMP3, HEMDF #### [address] [address] [place], [place] Abs Neutrophile Cnt 10.4 10*3/uL High 1.8-7.0 [facility] Comment on above: Performed By: #### M G3, PHOS3, BMP3, HEMDF #### [address] [address] [place], [place] Basophils/100 WBC (Bld) 0.2 % Normal 0.0-2.0 [facility] Comment on above: Performed By: #### M G3, PHOS3, BMP3, HEMDF #### [address] [address] [address] [place], [place] Eosinophils (Bld) [#/Vol] 0.0 10*3/uL Normal 0.0-0.5 [facility] Comment on above: Performed By: #### M G3, PHOS3, BMP3, HEMDF #### [address] [address] [address] [place], [place] Eosinophils/100 WBC (Bld) 0.0 % Low 1.0-6.0 [facility] Comment on above: Performed By: #### M G3, PHOS3, BMP3, HEMDF #### [address] [address] [address] [place], [place] Erythrocyte distribution width (RBC) [Ratio] 20.0 % High 11.5-14.5 [facility] Comment on above: Performed By: #### M G3, PHOS3, BMP3, HEMDF #### [address] [address] [address] [place], [place] Granulocytes/100 WBC (Bld) 87.5 % High 40.0-80.0 [facility] Comment on above: Performed By: #### M G3, PHOS3, BMP3, HEMDF #### [address] [address] [address] [place], [place] Hematocrit (Bld) [Volume fraction] 27.4 % Low 35.0-47.0 [facility] Comment on above: Performed By: #### M G3, PHOS3, BMP3, HEMDF #### [address] [address] [address] [place], [place] Hemoglobin (Bld) [Mass/Vol] 9.0 g/dL Low 11.7-16.0 [facility] Comment on above: Performed By: #### M G3, PHOS3, BMP3, HEMDF #### [address] [address] [address] [place], [place] Lymphocytes (Bld) [#/Vol] 0.6 10*3/uL Low 1.0-4.3 [facility] Comment on above: Performed By: #### M G3, PHOS3, BMP3, HEMDF #### [address] [address] [address] [place], [place] Lymphocytes/100 WBC (Bld) 5.3 % Low 20.0-40.0 [facility] Comment on above: Performed By: #### M G3, PHOS3, BMP3, HEMDF #### [address] [address] [address] [place], [place] MCH (RBC) [Entitic mass] 31.4 pg Normal 26.0-34.0 [facility] Comment on above: Performed By: #### M G3, PHOS3, BMP3, HEMDF #### [address] [address] [address] [place], [place] MCHC (RBC) [Mass/Vol] 32.8 % Normal 32.0-36.0 [facility] Comment on above: Performed By: #### M G3, PHOS3, BMP3, HEMDF #### [address] [address] [address] [place], [place] MCV (RBC) [Entitic vol] 95.6 fL Normal 79.0-98.0 [facility] Comment on above: Performed By: #### M G3, PHOS3, BMP3, HEMDF #### [address] [address] [address] [place], [place] Monocytes (Bld) [#/Vol] 0.8 10*3/uL Normal 0.0-0.8 [facility] Comment on above: Performed By: #### M G3, PHOS3, BMP3, HEMDF #### [address] [address] [place], [place] Monocytes/100 WBC (Bld) 7.0 % Normal 2.0-10.0 [facility] Comment on above: Performed By: #### M G3, PHOS3, BMP3, HEMDF #### [address] [address] [address] [place], [place] Platelet mean volume (Bld) [Entitic vol] 9.6 fL Normal 7.4-10.4 [facility] Comment on above: Performed By: #### M G3, PHOS3, BMP3, HEMDF #### [address] [address] [place], [place] Platelets (Bld) [#/Vol] 171 10*3/uL Normal 140-440 [facility] Comment on above: Performed By: #### M G3, PHOS3, BMP3, HEMDF #### [facility] [address] [place], [place] RBC (Bld) [#/Vol] 2.87 10*6/uL Low 3.80-5.20 [facility] Comment on above: Performed By: #### M G3, PHOS3, BMP3, HEMDF #### [facility] [address] [place], [place] WBC (Bld) [#/Vol] 11.9 10*3/uL High 3.6-10.7 [facility] Comment on above: Performed By: #### M G3, PHOS3, BMP3, HEMDF #### [address] [address] [address] [place], [place] Magnesiumon 09-18-2020 Magnesium [Mass/Vol] 2.0 mg/dL Normal 1.6-2.[address] [facility] Comment on above: Performed By: #### M G3, PHOS3, BMP3, HEMDF #### [address] [address] [address] [place], [place] Vitamin B12on 09-18-2020 Cobalamin (Vitamin B12) [Mass/Vol] 716 pg/mL Normal 239-931 [facility] Comment on above: Performed By: #### M G3, PHOS3, BMP3, HEMDF #### [address] [address] [address] [place], [place] Basic Metabolic Panelon 08-30 Anion gap [Moles/Vol] 9 mmol/L Normal 3-13 [facility] Comment on above: Performed By: #### M G3, PHOS3, BMP3, HEMDF #### [address] [address] [address] [place], [place] Calcium [Mass/Vol] 9.0 mg/dL Normal 8.4-10.4 [facility] Comment on above: Performed By: #### M G3, PHOS3, BMP3, HEMDF #### [address] [address] [address] [place], [place] CO2 [Moles/Vol] 30 mmol/L Normal 22-30 [facility] Comment on above: Performed By: #### M G3, PHOS3, BMP3, HEMDF #### [facility] [address] [place], [place] Glucose [Mass/Vol] 108 mg/dL High 70-100 [facility] Comment on above: Performed By: #### M G3, PHOS3, BMP3, HEMDF #### [facility] [address] [place], [place] Urea nitrogen [Mass/Vol] 38 mg/dL High 7-20 [facility] Comment on above: Performed By: #### M G3, PHOS3, BMP3, HEMDF #### [address] [address] [address] [place], [place] Creatinine [Mass/Vol] 1.94 mg/dL High 0.52-1.25 [facility] Comment on above: Performed By: #### M G3, PHOS3, BMP3, HEMDF #### [facility] [address] [place], [place] GFR/1.73 sq M predicted among blacks MDRD (S/P/Bld) [Vol rate/Area] 30.8 mL/min/{1.73_m2} Abnormal >60 [facility] Comment on above: Performed By: #### M G3, PHOS3, BMP3, HEMDF #### [facility] [address] [place], [place] GFR/1.73 sq M predicted among non-blacks MDRD (S/P/Bld) [Vol rate/Area] 26.6 mL/min/{1.73_m2} Abnormal >60 [facility] Comment on above: Result Comment: KDIG O guidelines provide the following GFR categories: Stage GFR(ml/min/1.73 m2) Terms G1 >=90 Normal or high G2 60-89 Mildly decreased* G3a 45-59 Mildly to moderately decreased G3b 30-44 Moderately to severely decreased G4 15-29 Severely decreased G5 <15 Kidney failure *Relative to young adult level. In the absence of evidence of kidney damage, neither GFR category G1 nor G2 fulfill the criteria for CKD. The CKD-EPI equation is validated in individuals 18 years of age and older. Currently the best equation for estimating glomerular filtration rate (GFR) from serum creatinine in children is the Bedside Lee equation. It is less accurate in patients with extremes of muscle mass, restriction of dietary protein, ingestion of creatine, extra-renal metabolism of creatinine, or treatment with medications that affect renal tubular creatinine secretion. Performed By: #### M G3, PHOS3, BMP3, HEMDF #### [address] [address] [address] [place], [place] Chloride [Moles/Vol] 102 mmol/L Normal 98-[address] [facility] Comment on above: Performed By: #### M G3, PHOS3, BMP3, HEMDF #### [address] [place] [address] [place], [place] Potassium [Moles/Vol] 3.5 mmol/L Normal 3.5-5.1 [facility] Comment on above: Performed By: #### M G3, PHOS3, BMP3, HEMDF #### [address] [place] [address] [place], [place] Sodium [Moles/Vol] 141 mmol/L Normal 135-145 [facility] Comment on above: Performed By: #### M G3, PHOS3, BMP3, HEMDF #### [address] CR Chest Portableon 09-17-19 21 CR Chest Portable Patient Name: BRITTA YOUNG Diagnostic Radiology ACCESSION EXAM DATE/TIME PROCEDURE ORDERING PROVIDER [id number] 09/17/2020 21:35 EST CR Chest Portable AYALA LAKESHA Bebo CPT code 78716 Reason For Exam (CR Chest Portable) central line placement Report CHEST PORTABLE CLINICAL INDICATION: central line placement TECHNIQUE: Single, portable chest x-ray. COMPARISON: August,. FINDINGS: Interval placement of left IJ central venous catheter, with tip projected laterally over the left brachiocephalic vein-SVC junction. Interval placement of enteric tube extending below the diaphragm. Right-sided portacatheter again noted. Cardiac silhouette prominent, which may be due in part to technique, but stable. Lungs are grossly clear. No apparent pneumothorax. IMPRESSION: 1. Interval placement and position of left-sided central venous catheter and enteric tube, as reported. 2. Otherwise, stable. Report Dictated on Final Dictated: 09/17/2020 9:28 pm Dictating Physician: MD PERDOMO WENDELL Signed Date and Time: 09/17/2020 9:29 pm Signed by: MD PERDOMO WENDELL Transcribed Date and Time: 09/17/2020 9:28 [facility] CULTURE URINEon 09-17-2020 CULTURE URINE 2 Organism Enterococ cus faecium 10,000-50,000 CFU/ml Susceptibility testing performed only upon request for cultures with multiple types of microorganisms below 100,000 CFU/ml. 1 Organism Enterobacter cloacae complex >100,000 CFU/ml For serious infections outside of the urinary tract, third generation cephalosporins may not be effective, even if test results indicate the organism is sensitive. ------ 1 Organism ------ Antibiotic Result Intrp ------ Amoxicillin/Clavulanic Acid(CARMINA) R Pip/Tazobactam(CARMINA) <= 4 S Cefazolin(CARMINA) R Ceftriaxone(CARMINA) <= 1 S Cefepime(CARMINA) <= 1 S Aztreonam(CARMINA) <= 1 S Meropenem(CARMINA) <= 0.25 S Amikacin(CARMINA) <= 2 S Gentamicin(CARMINA) <= 1 S Ciprofloxacin(CARMINA) <= 0.25 S Nitrofurantoin(CARMINA) 32 S Trimeth/Sulfa(CARMINA) <= 20 S Normal [facility] Comment on above: Performed By: #### C RTUR, ASHLEY, NAURR #### [facility] [address] [place], [place] Comp Metabolic Panelon 09-17 Calcium [Mass/Vol] 9.1 mg/dL Normal 8.4-10.4 [facility] Comment on above: Performed By: #### M G3, PHOS3, BMP3, HEMDF #### [address] [address] [address] [place], [place] ALP [Catalytic activity/Vol] 63 U/L Normal 38-126 [facility] Comment on above: Performed By: #### M G3, PHOS3, BMP3, HEMDF #### [address] [place] [address] [address] [place], [place] ALT [Catalytic activity/Vol] 16 U/L Normal 0-34 [facility] Comment on above: Result Comment: The ALT test is performed by an updated assay method. Please note that the reference intervals have been changed and are now sex specific. Performed By: #### M G3, PHOS3, BMP3, HEMDF #### [address] [place] [address] [address] [place], [place] Anion gap [Moles/Vol] 10 mmol/L Normal 3-13 [facility] Comment on above: Performed By: #### M G3, PHOS3, BMP3, HEMDF #### [address] [place] [address] [address] [place], [place] AST [Catalytic activity/Vol] 24 U/L Normal 15-46 [facility] Comment on above: Performed By: #### M G3, PHOS3, BMP3, HEMDF #### [address] [address] [address] [place], [place] Bilirubin [Mass/Vol] 0.8 mg/dL Normal 0.2-1.[address] [facility] Comment on above: Performed By: #### M G3, PHOS3, BMP3, HEMDF #### [address] [place] [address] [address] [place], [place] CO2 [Moles/Vol] 28 mmol/L Normal 22-30 [facility] Comment on above: Performed By: #### M G3, PHOS3, BMP3, HEMDF #### [address] Creatinine [Mass/Vol] 2.11 mg/dL High 0.52-1.25 [facility] Comment on above: Performed By: #### M G3, PHOS3, BMP3, HEMDF #### [address] GFR/1.73 sq M predicted among blacks MDRD (S/P/Bld) [Vol rate/Area] 27.8 mL/min/{1.73_m2} Abnormal >60 [facility] Comment on above: Performed By: #### M G3, PHOS3, BMP3, HEMDF #### [address] GFR/1.73 sq M predicted among non-blacks MDRD (S/P/Bld) [Vol rate/Area] 24.0 mL/min/{1.73_m2} Abnormal >60 [facility] Comment on above: Result Comment: KDIG O guidelines provide the following GFR categories: Stage GFR(ml/min/1.73 m2) Terms G1 >=90 Normal or high G2 60-89 Mildly decreased* G3a 45-59 Mildly to moderately decreased G3b 30-44 Moderately to severely decreased G4 15-29 Severely decreased G5 <15 Kidney failure *Relative to young adult level. In the absence of evidence of kidney damage, neither GFR category G1 nor G2 fulfill the criteria for CKD. The CKD-EPI equation is validated in individuals 18 years of age and older. Currently the best equation for estimating glomerular filtration rate (GFR) from serum creatinine in children is the Bedside Lee equation. It is less accurate in patients with extremes of muscle mass, restriction of dietary protein, ingestion of creatine, extra-renal metabolism of creatinine, or treatment with medications that affect renal tubular creatinine secretion. Performed By: #### M G3, PHOS3, BMP3, HEMDF #### [address] Protein [Mass/Vol] 7.1 g/dL Normal 6.3-8.2 [facility] Comment on above: Performed By: #### M G3, PHOS3, BMP3, HEMDF #### [facility] [address] [place], [place] Urea nitrogen [Mass/Vol] 39 mg/dL High 7-20 [facility] Comment on above: Performed By: #### M G3, PHOS3, BMP3, HEMDF #### [address] [place] [address] [address] [place], [place] Potassium [Moles/Vol] 3.8 mmol/L Normal 3.5-5.1 [facility] Comment on above: Performed By: #### M G3, PHOS3, BMP3, HEMDF #### [address] [place] [address] [address] [place], [place] Sodium [Moles/Vol] 139 mmol/L Normal 135-145 [facility] Comment on above: Performed By: #### M G3, PHOS3, BMP3, HEMDF #### [address] [place] [address] [address] [place], [place] Albumin [Mass/Vol] 3.7 g/dL Normal 3.5-5.0 [facility] Comment on above: Performed By: #### M G3, PHOS3, BMP3, HEMDF #### [place] [address] [place], [place] Chloride [Moles/Vol] 101 mmol/L Normal 98-[address] [facility] Comment on above: Performed By: #### M G3, PHOS3, BMP3, HEMDF #### [place] [address] [place], [place] Hemogramon 09-17-2020 Erythrocyte distribution width (RBC) [Ratio] 19.2 % High 11.5-14.5 [facility] Comment on above: Performed By: #### M G3, PHOS3, BMP3, HEMDF #### [place] [address] [place], [place] Hematocrit (Bld) [Volume fraction] 24.7 % Low 35.0-47.0 [facility] Comment on above: Performed By: #### M G3, PHOS3, BMP3, HEMDF #### [place] [address] [place], [place] Hemoglobin (Bld) [Mass/Vol] 7.9 g/dL Low 11.7-16.0 [facility] Comment on above: Performed By: #### M G3, PHOS3, BMP3, HEMDF #### [facility] [address], [place] MCH (RBC) [Entitic mass] 32.4 pg Normal 26.0-34.0 [facility] Comment on above: Performed By: #### M G3, PHOS3, BMP3, HEMDF #### [place] [address] [place], [place] MCHC (RBC) [Mass/Vol] 31.7 % Low 32.0-36.0 [facility] Comment on above: Performed By: #### M G3, PHOS3, BMP3, HEMDF #### [place] [address] [place], [place] MCV (RBC) [Entitic vol] 101.9 fL High 79.0-98.0 [facility] Comment on above: Performed By: #### M G3, PHOS3, BMP3, HEMDF #### [place] [address] [place], [place] Platelet mean volume (Bld) [Entitic vol] 10.6 fL High 7.4-10.4 [facility] Comment on above: Performed By: #### M G3, PHOS3, BMP3, HEMDF #### [place] [address] [place], [place] Platelets (Bld) [#/Vol] 187 10*3/uL Normal 140-440 [facility] Comment on above: Performed By: #### M G3, PHOS3, BMP3, HEMDF #### [place] [address] [place], [place] RBC (Bld) [#/Vol] 2.43 10*6/uL Low 3.80-5.20 [facility] Comment on above: Performed By: #### M G3, PHOS3, BMP3, HEMDF #### [place] [address] [place], [place] WBC (Bld) [#/Vol] 8.5 10*3/uL Normal 3.6-10.7 [facility] Comment on above: Performed By: #### M G3, PHOS3, BMP3, HEMDF #### [facility] [address] [place] [address] Magnesiumon 09-17-2020 Magnesium [Mass/Vol] 1.6 mg/dL Normal 1.6-2.[address] [facility] Comment on above: Performed By: #### M G3, PHOS3, BMP3, HEMDF #### [facility] [address] [place] [address] Op Noteon 09-17-2020 Op Note PATIENT: MABLE YOUNG ADMISSION DATE: 09/14/2020 SURGERY DATE: 09/17/2020 DATE OF : 1955 AGE: 64 ADMITTING PHYSICIAN: Aravind Carey MD ATTENDING PHYSICIAN: Chemo Prabhakar MD DICTATING PHYSICIAN: Chemo Prabhakar MD OPERATIVE RECORD Procedure: OPEN REPAIR OF SUPERIOR MESENTERIC ARTERY ANEURYSM. Preoperative Diagnosis: Superior mesenteric artery aneurysm. Postoperative Diagnosis: Superior mesenteric artery aneurysm. Anesthesia: General. Assistants: 1. Lakesha Ayala M.D. 2. Nabor Lindsay M.D. History of Present Illness: The patient is a 64-year-old female, who previously just recently underwent open hysterectomy, oophorectomy, and omentectomy for cancer staging. On preoperative imaging, she was noted to have what appeared to be a large cyst in the mesentery. Intraoperatively for the oncologic surgery, it was noted to be pulsatile in nature. They completed their oncologic surgery and the patient recovered and was sent home. She returned with several days of abdominal pain, nausea, and vomiting and repeat imaging was highly Suggestive this was in fact an aneurysm from the superior mesenteric Artery. Angiography confirmed that this was in fact a large aneurysm appearing to originate from a branch of the SMA. Given anatomic features, it was felt this was not an aneurysm, can be treated with embolization, so she was taken now for open repair. Description of Procedure: Upon obtaining informed consent and verification of correct patient, procedure, and site, the patient was taken to the operating room where she was placed under general anesthesia. She was then positioned, prepped, and draped in usual sterile fashion. Time-out was performed. Previous midline incision was opened. Subcutaneous sutures were cut and the PDS closure of the abdomen was cut and the fascia reopened. Incision was then extended cephalad to the xiphoid. Self-retaining tractor and Omni retractors were brought onto the field and put into position. The small bowel, which was fairly dilated and edematous, was wrapped in a green towel and retracted inferiorly. Transverse colon was retracted superiorly and the aneurysm found a the root of the mesentery. Within the mesentery of the distal duodenum and proximal jejunum, sharp dissection was used to dissect circumferentially attempting to mobilize the aneurysm from any of the surrounding structures as fairly densely adherent to the proximal jejunum and ultimately we decided that a further dissection of this would be hazardous with regards to the small bowel. So we then worked more cephalad towards where the aneurysm appeared to feel more firmly adherent and tethered. We were able to dissect down approximately to the feeding vessel that appeared to give rise this aneurysm just beyond its origin from the SMA. Sharp dissection was then used to dissect free the SMA proximal and distal enough for clamping and right angle was used to place vessel loop around the more proximal SMA and distal two branches of the SMA. The patient was then heparinized and allowed to circulate for 3 minutes. The SMA was occluded proximal and distal with vessel loops. The aneurysm was then opened with 11 blade and extended with curved Hoang scissors proximal and distal. There was 1 lumen of feeding vessel proximally and then 1 distal outflow vessel that had very brisk back bleeding that suggested there was well-formed collaterals and that simple ligation of the aneurysm would be feasible. Distal vessel was then oversewn with 3-0 Prolene running suture. After which satisfactory hemostasis was noted, we then excised the aneurysm sac more further proximally down to the inflow vessel. This was again oversewn with 3-0 Prolene in running fashion. After completing suture line, clamps were removed and satisfactory hemostasis was noted. The superior mesenteric artery was palpable with normal Doppler signal across the area of clamping and the small bowel was inspected and found to be pink viable throughout its entirety. The patient was then reversed with protamine. Vistaseal topical hemostatic was applied to the oozing of the root of the mesentery and the retroperitoneum. Upon inspection, satisfactory hemostasis was noted. The small bowel was then allowed to return to its [place] position. Self-retaining retractor was removed and the abdomen closed with a looped PDS, followed by 3-0 Vicryl and nerissa. At the conclusion of the case, the patient was awakened from anesthesia and taken to recovery room with anticipated admission to the vascular unit. Diskriter Job ID: [id number] Chemo Prabhakar MD DOD:09/17/2020 07:08 P EJT/dsk DOT:09/17/2020 08:12 P Job Number: [id number] Document Number: [id number] cc: Haleigh Leyva MD Inpatient Medical Services [address] [address] Chemo Prabhakar MD [facility] [address] [facility] [address] Normal [facility] Phosphoruson 09-17-2020 Phosphate [Mass/Vol] 3.1 mg/dL Normal 2.5-4.[address] [facility] Comment on above: Performed By: #### M G3, PHOS3, BMP3, HEMDF #### [facility] [address] [place] [address] Surgical Pathologyon 021 Surgical Pathology [id number] [facility] PATHOLOGY AND LABORATORY MEDICINE [address] [place] [id number] FINAL SURGICAL PATHOLOGY REPORT NAME: BRITTA YOUNG : 1955 64 Y F BILLING NO.: [id number] LOCATION: [address] [place] [address] A PROCEDURE 09/17/2020 DATE: SURGEON: NABOR LINDSAY M.D. RECEIVED 09/20/2020 DATE: ATTENDING: TESHA ROTHMAN MD REPORT DATE: 09/28/2020 COPIES TO: DIAGNOSIS: SUPERIOR MESENTERIC ARTERY ANEURYSM WALL, REMOVAL - PORTION OF ARTERIAL WALL WITH CYSTIC MEDIAL NECROSIS AND MILD CHRONIC INFLAMMATION. Comment: Trichrome and elastic stains support the above diagnosis. A treponemal immunostain was negative for organisms. CRH/CRH Signature> MONET JAVIER M.D. CLINICAL INFORMATION: Not provided. SPECIMEN: ANEURYSM GROSS DESCRIPTION: Received in formalin labeled SMA aneurysm wall is an irregular segment of somewhat membranous rubbery pink-muhammad tissue which measures 3 x 1.5 x 0.4 cm. One surface is yellow-muhammad, while the other is reddish-brown. Upon transection, cut surfaces are grossly unremarkable. Machine Striper sections are submitted in a single cassette. JCK/0RW Disclaimer: The following statement applies to all immunohistochemistry, in situ hybridization, molecular studies, and immunofluorescence testing. The use of one or more reagents in the above tests is regulated as an analyte specific reagent (ASR). These tests were developed and their performance characteristics determined by the clinical laboratories [facility]. They have not been cleared by the US Food and Drug Administration (FDA). The FDA has determined that such clearance or approval is not necessary. All the above immunostains were performed on paraffin embedded tissue. Appropriate positive and negative controls (where applicable) were run in parallel with the patient's specimen; these controls showed expected staining pattern, with acceptable intensity of staining. Immunohistochemical assays have not been validated on decalcified tissues. Results should be interpreted with caution given the raised possibility of false negativity on decalcified specimens. Professional Performing Location: [address] [address]. DEPARTMENT OF PATHOLOGY AND LABORATORY MEDICINE [place], [place] Normal [facility] Basic Metabolic Panelon 08-30 Anion gap [Moles/Vol] 12 mmol/L Normal 3-13 [facility] Comment on above: Performed By: #### M G3, PHOS3, BMP3, HEMDF #### [facility] [address], [place] Calcium [Mass/Vol] 9.6 mg/dL Normal 8.4-10.4 [facility] Comment on above: Performed By: #### M G3, PHOS3, BMP3, HEMDF #### [address] [address] [place], [place] CO2 [Moles/Vol] 26 mmol/L Normal 22-30 [facility] Comment on above: Performed By: #### M G3, PHOS3, BMP3, HEMDF #### [address] [address] [place], [place] Creatinine [Mass/Vol] 2.76 mg/dL High 0.52-1.25 [facility] Comment on above: Performed By: #### M G3, PHOS3, BMP3, HEMDF #### [facility] [address], [place] GFR/1.73 sq M predicted among blacks MDRD (S/P/Bld) [Vol rate/Area] 20.1 mL/min/{1.73_m2} Abnormal >60 [facility] Comment on above: Performed By: #### M G3, PHOS3, BMP3, HEMDF #### [address] [address] [place], [place] GFR/1.73 sq M predicted among non-blacks MDRD (S/P/Bld) [Vol rate/Area] 17.3 mL/min/{1.73_m2} Abnormal >60 [facility] Comment on above: Result Comment: KDIG O guidelines provide the following GFR categories: Stage GFR(ml/min/1.73 m2) Terms G1 >=90 Normal or high G2 60-89 Mildly decreased* G3a 45-59 Mildly to moderately decreased G3b 30-44 Moderately to severely decreased G4 15-29 Severely decreased G5 <15 Kidney failure *Relative to young adult level. In the absence of evidence of kidney damage, neither GFR category G1 nor G2 fulfill the criteria for CKD. The CKD-EPI equation is validated in individuals 18 years of age and older. Currently the best equation for estimating glomerular filtration rate (GFR) from serum creatinine in children is the Bedside Lee equation. It is less accurate in patients with extremes of muscle mass, restriction of dietary protein, ingestion of creatine, extra-renal metabolism of creatinine, or treatment with medications that affect renal tubular creatinine secretion. Performed By: #### M G3, PHOS3, BMP3, HEMDF #### [facility] [address], [place] Glucose [Mass/Vol] 102 mg/dL High 70-100 [facility] Comment on above: Performed By: #### [place] G3, PHOS3, BMP3, HEMDF #### [address] [address] [place], [place] Urea nitrogen [Mass/Vol] 38 mg/dL High 7-20 [facility] Comment on above: Performed By: #### [place] G3, PHOS3, BMP3, HEMDF #### [address] Chloride [Moles/Vol] 102 mmol/L Normal 98-[address] [facility] Comment on above: Performed By: #### M G3, PHOS3, BMP3, HEMDF #### [facility] [address], [place] Potassium [Moles/Vol] 3.9 mmol/L Normal 3.5-5.1 [facility] Comment on above: Performed By: #### M G3, PHOS3, BMP3, HEMDF #### [place] [address] [place], [place] Sodium [Moles/Vol] 141 mmol/L Normal 135-145 [facility] Comment on above: Performed By: #### M G3, PHOS3, BMP3, HEMDF #### [address], [place] Creatinine, Ur Randomon 08-30 Creatinine, Ur Random 247.1 mg/dL Normal No Range [facility] Comment on above: Performed By: #### M G3, PHOS3, BMP3, HEMDF #### [place] [address] [place], [place] Hemoglobin AND Hematocriton 09-16-2020 Hematocrit (Bld) [Volume fraction] 24.8 % Low 35.0-47.0 [facility] Comment on above: Performed By: #### M G3, PHOS3, BMP3, HEMDF #### [address] [place], [place] Hemoglobin (Bld) [Mass/Vol] 7.8 g/dL Low 11.7-16.0 [facility] Comment on above: Performed By: #### M G3, PHOS3, BMP3, HEMDF #### [place] [address] [place], [place] Hemogramon 09-16-2020 Erythrocyte distribution width (RBC) [Ratio] 19.1 % High 11.5-14.5 [facility] Comment on above: Performed By: #### M G3, PHOS3, BMP3, HEMDF #### [address] [place], [place] Hematocrit (Bld) [Volume fraction] 25.0 % Low 35.0-47.0 [facility] Comment on above: Performed By: #### M G3, PHOS3, BMP3, HEMDF #### [place] [address] [place], [place] Hemoglobin (Bld) [Mass/Vol] 7.9 g/dL Low 11.7-16.0 [facility] Comment on above: Performed By: #### M G3, PHOS3, BMP3, HEMDF #### [place] [place], [place] MCH (RBC) [Entitic mass] 32.0 pg Normal 26.0-34.0 [facility] Comment on above: Performed By: #### M G3, PHOS3, BMP3, HEMDF #### [place] [place], [place] MCHC (RBC) [Mass/Vol] 31.6 % Low 32.0-36.0 [facility] Comment on above: Performed By: #### M G3, PHOS3, BMP3, HEMDF #### [place] [address] [place], [place] MCV (RBC) [Entitic vol] 101.2 fL High 79.0-98.0 [facility] Comment on above: Performed By: #### M G3, PHOS3, BMP3, HEMDF #### [place] [place], [place] Platelet mean volume (Bld) [Entitic vol] 10.5 fL High 7.4-10.4 [facility] Comment on above: Performed By: #### M G3, PHOS3, BMP3, HEMDF #### [address] [place], [place] Platelets (Bld) [#/Vol] 176 10*3/uL Normal 140-440 [facility] Comment on above: Performed By: #### M G3, PHOS3, BMP3, HEMDF #### [address] [place] [place], [place] RBC (Bld) [#/Vol] 2.47 10*6/uL Low 3.80-5.20 [facility] Comment on above: Performed By: #### M G3, PHOS3, BMP3, HEMDF #### [address] [place] [place], [place] WBC (Bld) [#/Vol] 12.1 10*3/uL High 3.6-10.7 [facility] Comment on above: Performed By: #### M G3, PHOS3, BMP3, HEMDF #### [address] [place], [place] Lactic Acidon 09-16-2020 Lactate [Moles/Vol] 0.9 mmol/L Normal 0.7-2.0 [facility] Comment on above: Performed By: #### L ACT3, PT/AP #### [address] [place], [place] Procalcitoninon 09-16-2020 Procalcitonin 0.60 ng/mL Abnormal <0.10 [facility] Comment on above: Performed By: #### M G3, PHOS3, BMP3, HEMDF #### [address] [place], [place] Protime AND APTTon aPTT Coag (Bld) [Time] 24.5 s Normal 20.0-30.[address] [facility] Comment on above: Result Comment: NOTE : The therapeutic time for Heparin anticoagulation, based on Xa activity inhibition, is an APTT of 46-80 seconds. Performed By: #### L ACT3, PT/AP #### [address] [place], [place] INR Coag (PPP) [Relative time] 1.1 Normal 0.9-1.1 [facility] Comment on above: Result Comment: David mmended Anticoagulant Therapy: SEE BELOW ----- INR of 2.0 - 3.0 : - Prophylaxis of Venous Thrombosis (high-risk surgery) - Treatment of Venous Thrombosis - Treatment of Pulmonary Embolism (Includes tissue heart valves, Acute Myocardial Infarction to prevent systemic embolism, Valvular Heart Disease, and Atrial Fibrillation) ----- INR of 2.5 - 3.5 : - Mechanical Prosthetic Valves (high risk) - If oral anticoagulant therapy is used to prevent Myocardial Infarction Performed By: #### L ACT3, PT/AP #### [address] [place], [place] PT Coag (PPP) [Time] 12.0 s Normal 9.0-12.[address] [facility] Comment on above: Result Comment: . Performed By: #### L ACT3, PT/AP #### [address] [place], [place] Sodium, Ur Randomon 09-16-19 21 Sodium [Moles/Vol] 38 mmol/L Normal 30-90 [facility] Comment on above: Performed By: #### M G3, PHOS3, BMP3, HEMDF #### [address] [place] [address] TS GELon 09-16-2020 TS GEL ABO Group: B Rh, Gel: POS Antibody Screen Gel: NEG Normal [facility] Comment on above: Performed By: #### L ACT3, PT/AP #### [facility] [address] [place] [address] VL Mesenteric Duplexon 09-16 VL Mesenteric Duplex Patient Name: BRITTA MCLEAN Ultrasound ACCESSION EXAM DATE/TIME PROCEDURE ORDERING PROVIDER [id number] 09/16/2020 09:28 EST VL Mesenteric Duplex [id number] -DAT TORRE CPT code 03831 Reason For Exam (VL Mesenteric Duplex) hemorrhagic cyst vs. mesenteric anuerysm Report [facility] Mesenteric Artery Duplex Report Patient Hector, : 1955 Study 09/16/2020 Name: Britta (64yrs) Date: Age: 64 Account: [id number] Gender: F Loc: 5127 BP: Ordering Physician: Dat Torre Hr Shared Services Consultant: Teresa Childs RVT Interpreting Physician: Rashid Sahni MD Location: [facility] Indications: Abdominal pain and abnormal findings on recent CT.. CRITICAL RESULTS: A critical finding, was reported to Kat SCHAEFFER , by Teresa Childs RVT, [facility] , on 09/16/2020 , at 09:35 AM. Correct read-back was verified. 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 Diabetes mellitus. Morbidly obese. Hyperlipidemia. Study data: Mesenteric arterial duplex. Duplex scan, grayscale 2D imaging, color Doppler imaging, and spectral Doppler analysis. Location: Vascular laboratory. Procedure: A vascular evaluation was performed with the patient in the supine position. Images were obtained using a Sprio E9 vascular ultrasound machine. The abdominal aorta and the celiac, superior mesenteric, and inferior mesenteric arteries Ultrasound Report were studied. The study was technically limited due to obesity and bowel gas. Limited visibility also due to midline wound and recent abdominal surgery. Findings Highly limited exam due to bowel gas. Unable to visualize mesenteric arteries at midline, may wish other means of evaluation. Arterial flow: + + + + +Location +PSV(cm/sec)+Comment + + + + + +Suprarenal aorta , prox+74 + ---------+ + + + + +Splenic +155 +Splenic artery aneurysm measuring+ + + +7.63 x 8.14 cm. + + + +Splenic artery velocity + + + +measurement taken at distal. + + + + + Prepared and electronically signed by Rashid Sahni MD 09/16/2020 11:01 Final Dictated: 09/16/2020 11:01 am Dictating Physician: RASHID SAHNI Signed Date and Time: 09/16/2020 11:01 am Signed by: RASHID SAHNI Cardiovascular ACCESSION EXAM DATE/TIME PROCEDURE [id number] 09/16/2020 09:28 EST VL Mesenteric Duplex CPT code 97186 Reason For Exam (VL Mesenteric Duplex) hemorrhagic cyst vs. mesenteric anuerysm Report [facility] [place] Mesenteric Artery Duplex Report Patient Hector, : 1955 Study 09/16/2020 Name: Britta (64yrs) Date: Age: 64 Account: [id number] Gender: F Loc: 5127 BP: Ordering Physician: Dat Torre Hr Shared Services Consultant: Teresa Childs RVT Cardiovascular Report Interpreting Physician: Rashid Sahni MD Location: [facility] Indications: Abdominal pain and abnormal findings on recent CT.. CRITICAL RESULTS: A critical finding, was reported to Kat SCHAEFFER , by Teresa Childs RVT, RDMS , on 09/16/2020 , at 09:35 AM. Correct read-back was verified. 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 Diabetes mellitus. Morbidly obese. Hyperlipidemia. Study data: Mesenteric arterial duplex. Duplex scan, grayscale 2D imaging, color Doppler imaging, and spectral Doppler analysis. Location: Vascular laboratory. Procedure: A vascular evaluation was performed with the patient in the supine position. Images were obtained using a Sprio E9 vascular ultrasound machine. The abdominal aorta and the celiac, superior mesenteric, and inferior mesenteric arteries were studied. The study was technically limited due to obesity and bowel gas. Limited visibility also due to midline wound and recent abdominal surgery. Findings Highly limited exam due to bowel gas. Unable to visualize mesenteric arteries at midline, may wish other means of evaluation. Arterial flow: + + + + +Location +PSV(cm/sec)+Comment + + + + + +Suprarenal aorta , prox+74 + ---------+ + + + + +Splenic +155 +Splenic artery aneurysm measuring+ + + +7.63 x 8.14 cm. + + + +Splenic artery velocity + + + +measurement taken at distal. + + + + + Prepared and electronically signed by Rashid Sahni MD Cardiovascular Report 09/16/2020 11:01 Final Dictated: 09/16/2020 11:01 am Dictating Physician: RASHID SAHNI Signed Date and Time: 09/16/2020 11:01 am Signed by: RASHID SAHNI [facility] XA Special Angiography Dat phipps 09-16-2020 XA Special Angiography Procedure [facility]: [id number] Procedures ACCESSION EXAM DATE/TIME PROCEDURE ORDERING PROVIDER [id number] 09/16/2020 16:58 EST XA Special Angiography [id number] -MARGCHAKAA, Procedure KENNY Reason For Exam (XA Special Angiography Procedure) splenic artery aneurysm needing embolization Addendum Cone beam CTA was performed and subsequent images were reconstructed and reviewed on an independent 3-D viewing workstation. Report Dictated on Final Addendum Dictated: 11/10/2020 8:59 am Addendum Dictating Physician: MD GARCIA KEVIN Signed Date and Time: 11/10/2020 9:00 am Signed by: MD GARCIA KEVIN Transcribed Date and Time: 11/10/2020 8:59 Report CLINICAL HISTORY: Pulsatile mass posterior to the ligament of Treitz on expiratory laparotomy, mesenteric duplex suggesting splenic artery aneurysm. Procedures: 1. Superior mesenteric arteriogram. 2. Right common femoral arteriogram with MynxGrip closure Physician: Dr. Garcia MEDICATIONS: Local lidocaine, 1 mg Versed IV, 50 mcg fentanyl IV EBL: Minimal. Contrast: 75 mL Visipaque Specimen sent: None COMPLICATIONS: None Fluoroscopy Time: 4.3 minutes Angiographic runs: 3 Fluoroscopic spot images: 0 Fluoroscopic saved images were obtained. These images do NOT add additional exposure to ionizing radiation and were captured electronically from the imaging chain. Procedural details: Prior to the procedure red rules were performed which included patient name, date of , and procedure type. All of the risk, benefits, and alternative treatments were explained to the patient and informed consent was obtained and documented. The patient was brought into the Special Procedures Report angiography suite and placed in a supine position. Maximal sterile barrier technique was utilized. All elements of maximal sterile barrier technique were used including a hat, mask, sterile gown, sterile gloves, and a sterile drape. Appropriate hand hygiene using 2 percent chlorhexidine for cutaneous antisepsis was utilized. A sterile ultrasound probe cover and sterile ultrasound gel was utilized. The right common femoral artery was accessed with a 21-gauge needle under continuous ultrasound guidance. A 0.018 inch microwire was advanced through the needle into the distal abdominal aorta. Serial exchange was then made for a 5 Turkish sheath over a 0.035 J-wire with the aid of a 5 Turkish micropuncture exchange dilator. A 5 Turkish glide Quiñones 1 catheter was then manipulated into the origin of the superior mesenteric artery, and subtraction angiography of the superior mesenteric artery was performed in the PA and [place] 20 projections. This was followed by a cone beam CTA with the base catheter in the superior mesenteric artery. Based on the diagnostic images, the catheter was removed. Right common femoral arteriogram was performed through the indwelling sheath. Based on diagnostic images, hemostasis was obtained with a MynxGrip closure device. 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 There is a prominent pancreatic duodenal arcade with collateralization to the splenic artery. 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 Due to the large size, the pseudoaneurysm is not readily amenable to coil embolization. Additionally, due to the adjacent pancreaticoduodenal arcade origin of the proximal superior mesenteric artery, the pseudoaneurysm is not amenable to exclusion by covered stent graft placement, due to lack of a clear landing zone and potential coverage of normal arterial branches to bowel. Impression: 1. 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 The SMA is not amenable to large vessel embolization for treatment of the pseudoaneurysm due to high risk of bowel infarction. Additionally, the pseudoaneurysm is not readily amenable to coil packing due to its large size and lack of available large framing coils. Endovascular treatment options are limited. 2. 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 Findings of the arteriography were discussed Dr. Lindsay at the conclusion of the procedure. Report Dictated on Workstation: [id number] Final Dictated: 09/17/2020 11:17 am Dictating Physician: MD GARCIA KEVIN Signed Date and Time: 09/17/2020 12:09 pm Signed by: MD GARCIA KEVIN Transcribed Date and Time: 09/17/2020 11:17 Special Procedures Report last revised on 11/10/2020 09:00 EDT by MD GARCIA KEVIN [facility] Add on test from HISon 09-15 Add on test from HIS Accepted [facility] Comment on above: Result Comment: Spec imen available & acceptable for analysis. Performed By: #### M G3, PHOS3, BMP3, HEMDF #### [place] [address] [place], [place] Basic Metabolic Panelon 08-30 Anion gap [Moles/Vol] 9 mmol/L Normal 3-13 [facility] Comment on above: Performed By: #### C RTUR, OSMUR, NAURR #### [address] [place], [place] Calcium [Mass/Vol] 9.6 mg/dL Normal 8.4-10.4 [facility] Comment on above: Performed By: #### C RTUR, OSMUR, NAURR #### [address] [place], [place] CO2 [Moles/Vol] 29 mmol/L Normal 22-30 [facility] Comment on above: Performed By: #### C RTUR, OSMUR, NAURR #### [address] [place], [place] Glucose [Mass/Vol] 115 mg/dL High 70-100 [facility] Comment on above: Performed By: #### C RTUR, OSMUR, NAURR #### [address] [place], [place] Urea nitrogen [Mass/Vol] 36 mg/dL High 7-20 [facility] Comment on above: Performed By: #### C RTUR, OSMUR, NAURR #### [address] [place], [place] Creatinine [Mass/Vol] 2.68 mg/dL High 0.52-1.25 [facility] Comment on above: Performed By: #### C ASHLEY GARCIA NAURR #### [address] [address] GFR/1.73 sq M predicted among blacks MDRD (S/P/Bld) [Vol rate/Area] 20.8 mL/min/{1.73_m2} Abnormal >60 [facility] Comment on above: Performed By: #### C ASHLEY GARCIA NAURR #### [facility] [address] [place] [address] GFR/1.73 sq M predicted among non-blacks MDRD (S/P/Bld) [Vol rate/Area] 18.0 mL/min/{1.73_m2} Abnormal >60 [facility] Comment on above: Result Comment: KDIG O guidelines provide the following GFR categories: Stage GFR(ml/min/1.73 m2) Terms G1 >=90 Normal or high G2 60-89 Mildly decreased* G3a 45-59 Mildly to moderately decreased G3b 30-44 Moderately to severely decreased G4 15-29 Severely decreased G5 <15 Kidney failure *Relative to young adult level. In the absence of evidence of kidney damage, neither GFR category G1 nor G2 fulfill the criteria for CKD. The CKD-EPI equation is validated in individuals 18 years of age and older. Currently the best equation for estimating glomerular filtration rate (GFR) from serum creatinine in children is the Bedside Lee equation. It is less accurate in patients with extremes of muscle mass, restriction of dietary protein, ingestion of creatine, extra-renal metabolism of creatinine, or treatment with medications that affect renal tubular creatinine secretion. Performed By: #### C ASHLEY GARCIA NAURR #### [facility] [address] [place] [address] Potassium [Moles/Vol] 3.7 mmol/L Normal 3.5-5.1 [facility] Comment on above: Performed By: #### C ASHLEY GARCIA NAURR #### [address] [address] Sodium [Moles/Vol] 138 mmol/L Normal 135-145 [facility] Comment on above: Performed By: #### C ASHLEY CHEN NAURR #### [facility] [address] [place] [address] Chloride [Moles/Vol] 100 mmol/L Normal 98-[address] [facility] Comment on above: Performed By: #### C JOSE MONTEZ RAMIREZ #### [facility] [address] [place] [address] CT Abdomen/Pelvis w/o Contra ston 09-15-2020 CT Abdomen/Pelvis w/o Contrast Patient Name: BRITTA YOUNG Computed Tomography ACCESSION EXAM DATE/TIME PROCEDURE ORDERING PROVIDER [id number] 09/15/2020 00:[address] Abdomen/Pelvis (No CURT SCHULER CONNOR N PO, No IV) CPT code 29729 Reason For Exam (CT Abdomen/Pelvis (No PO, No IV)) hematemesis, epigastric pain Report CT SCAN OF THE ABDOMEN AND PELVIS WITHOUT CONTRAST: INDICATION: Epigastric pain COMPARISON: None. CT scans of the abdomen and pelvis were performed without oral and intravenous contrast administration, with images from the lung bases through the pubic symphysis. The images are reviewed in the axial, sagittal and coronal planes. The lung bases are clear. The cardiac silhouette is satisfactory. A small pericardial effusion is present. There are coronary artery calcifications The liver is normal in size, shape and attenuation. There are no focal liver masses. The gallbladder contains multiple stones. No intra or extrahepatic biliary ductal dilatation is appreciated. The pancreas is unremarkable. The spleen is unremarkable. A small amount of perihepatic ascites is present. Within the left upper quadrant is a well-circumscribed 7.8 x 8.3 cm low-attenuation lesion exhibiting rim calcification. This likely represents a cyst of uncertain origin. While in close proximity to the pancreatic body and tail this apparently is a separate entity and may represent a mesenteric cyst or mass. Evaluation of the upper GI tract demonstrates a hiatal hernia. The stomach is moderately distended with ingested debris. The duodenum is satisfactory in appearance. There is distention of multiple loops of mid small bowel with a transition point within the left lower quadrant. These findings are of concern for partial small bowel obstruction. Evaluation of the colon demonstrate the colon to be relatively decompressed. There is no mucosal thickening of the colon. The appendix is not visualized but no inflammatory process of the right lower quadrant is seen. The adrenal glands are unremarkable. Multiple bilateral renal cysts are present several of which are exophytic and several are of relative increased density as compared to simple cysts. Scans through the pelvis demonstrate the rectosigmoid to be unremarkable. The bladder is unremarkable. The remainder of the pelvic contents are unremarkable. There is no mass or adenopathy. There is Computed Tomography Report no free fluid. The osseous structures are intact. Evaluation of the retroperitoneal soft tissues demonstrates multiple air bubbles within the retroperitoneal soft tissue primarily within the pelvis and extending into the deep pelvic soft tissues and presacral region. No associated soft tissue inflammatory changes or fluid collections are seen. Atherosclerotic vascular calcifications of the aorta and iliac arteries are noted. IMPRESSION: Partial small bowel obstruction. Of note are scattered air bubbles within the retroperitoneal soft tissues of the pelvis of uncertain etiology. A direct communication with the retroperitoneal portions of the GI tract is not identified but of concern. There is a small amount of perihepatic ascites. A large well circumscribed rim calcified left upper quadrant mass is present, likely a cyst although CT density measurements of this lesion are higher than suspected for a simple cyst. Multiple bilateral renal cysts are present, several which are of relative high density. Cholelithiasis. There is a small pericardial effusion. A small hiatal hernia is present Report Dictated on Workstation: [facility] Final Dictated: 09/15/2020 1:19 am Dictating Physician: DO BLACK ALFRED Signed Date and Time: 09/15/2020 1:45 am Signed by: DO BLACK ALFRED Transcribed Date and Time: 09/15/2020 1:19 Normal [facility] Complete Urinalysison 2020 Appearance (U) Turbid Abnormal Clear [facility] Comment on above: Result Comment: . Performed By: #### M G3, PHOS3, BMP3, HEMDF #### [facility] [address] [place] [address] Bacteria LM.HPF (Urine sed) [#/Area] Few Abnormal Negative [facility] Comment on above: Result Comment: . Performed By: #### M G3, PHOS3, BMP3, HEMDF #### [facility] [address], [place] Bilirubin,Urine Negative Normal Negative [facility] Comment on above: Result Comment: . Performed By: #### M G3, PHOS3, BMP3, HEMDF #### [address] [address] [place], [place] Cast, Hyaline 0 - 2 Abnormal Negative [facility] Comment on above: Result Comment: . Performed By: #### M G3, PHOS3, BMP3, HEMDF #### [address] [place], [place] Color (U) Yellow Normal Lt. Yellow [facility] Comment on above: Result Comment: . Performed By: #### M G3, PHOS3, BMP3, HEMDF #### [address] [place], [place] Glucose Ql (U) Normal Normal Normal (<70) [facility] Comment on above: Result Comment: . Performed By: #### M G3, PHOS3, BMP3, HEMDF #### [address] [place], [place] Ketone,Urine Negative Normal Negative [facility] Comment on above: Result Comment: . Performed By: #### M G3, PHOS3, BMP3, HEMDF #### [address] [place], [place] Leukocytes,Urine 25 Andrey/uL Abnormal Negative [facility] Comment on above: Result Comment: . Performed By: #### M G3, PHOS3, BMP3, HEMDF #### [address] [place], [place] Mucous Threads Few Normal Negative [facility] Comment on above: Result Comment: . Performed By: #### M G3, PHOS3, BMP3, HEMDF #### [address] [place], [place] Nitrites,Urine Negative Normal Negative [facility] Comment on above: Result Comment: . Performed By: #### M G3, PHOS3, BMP3, HEMDF #### [address] [place], [place] Occult Blood,Urine 0.2 mg/dL Abnormal Negative [facility] Comment on above: Result Comment: . Performed By: #### M G3, PHOS3, BMP3, HEMDF #### [address] [place], [place] pH (U) 5.0 Normal 5.0-8.0 [facility] Comment on above: Result Comment: . Performed By: #### M G3, PHOS3, BMP3, HEMDF #### [address] [place], [place] Protein (U) [Mass/Vol] 50 mg/dL Abnormal Negative [facility] Comment on above: Result Comment: . Performed By: #### M G3, PHOS3, BMP3, HEMDF #### [address] [address] [place], [place] RBC LM.HPF (Urine sed) [#/Area] 11 - 25 Abnormal 0-2 [facility] Comment on above: Result Comment: . Performed By: #### M G3, PHOS3, BMP3, HEMDF #### [address] [place], [place] Specific [place],Urine 1.017 Normal 1.005 - 1.030 [facility] Comment on above: Result Comment: . Performed By: #### M G3, PHOS3, BMP3, HEMDF #### [address] [address] [place], [place] Squamous Epithelial 0 - 2 Normal 3-5 [facility] Comment on above: Result Comment: . Performed By: #### M G3, PHOS3, BMP3, HEMDF #### [address] [place], [place] Urobilinogen,Urine Normal Normal Normal (0-1) [facility] Comment on above: Result Comment: . Performed By: #### M G3, PHOS3, BMP3, HEMDF #### [address] WBC LM.HPF (Urine sed) [#/Area] 3 - 5 Normal 0-5 [facility] Comment on above: Result Comment: . Performed By: #### M G3, PHOS3, BMP3, HEMDF #### [address] [place], [place] Hemoglobin AND Hematocriton 09-15-2020 Hematocrit (Bld) [Volume fraction] 24.5 % Low 35.0-47.0 [facility] Comment on above: Performed By: #### C ASHLEY GARCIA, NAURR #### [address] [place], [place] Hemoglobin (Bld) [Mass/Vol] 7.9 g/dL Low 11.7-16.0 [facility] Comment on above: Performed By: #### C ASHLEY GARCIA, NAURR #### [address] [place], [place] Hematocrit (Bld) [Volume fraction] 24.7 % Low 35.0-47.0 [facility] Comment on above: Performed By: #### M G3, PHOS3, BMP3, HEMDF #### [address] [place], [place] Hemoglobin (Bld) [Mass/Vol] 7.8 g/dL Low 11.7-16.0 [facility] Comment on above: Performed By: #### M G3, PHOS3, BMP3, HEMDF #### [address] [place], [place] Hematocrit (Bld) [Volume fraction] 26.2 % Low 35.0-47.0 [facility] Comment on above: Performed By: #### M G3, PHOS3, BMP3, HEMDF #### [address] [place], [place] Hemoglobin (Bld) [Mass/Vol] 8.3 g/dL Low 11.7-16.0 [facility] Comment on above: Performed By: #### M G3, PHOS3, BMP3, HEMDF #### [address] [place], [place] Magnesiumon 09-15-2020 Magnesium [Mass/Vol] 2.1 mg/dL Normal 1.6-2.[address] [facility] Comment on above: Performed By: #### M G3, PHOS3, BMP3, HEMDF #### [address] [place], [place] Magnesium [Mass/Vol] 1.4 mg/dL Low 1.6-2.[address] [facility] Comment on above: Performed By: #### M G3, PHOS3, BMP3, HEMDF #### [address] [place], [place] Phosphoruson 09-15-2020 Phosphate [Mass/Vol] 4.1 mg/dL Normal 2.5-4.[address] [facility] Comment on above: Performed By: #### M G3, PHOS3, BMP3, HEMDF #### [address] [place], [place] Procalcitoninon 09-15-2020 Interpretation See Below Normal [facility] Comment on above: Result Comment: PCT <0.50 = Low risk of severe sepsis and/or septic shock. PCT >2.00 = High risk of severe sepsis and/or septic shock. Performed By: #### M G3, PHOS3, BMP3, HEMDF #### [address] [place], [place] Procalcitonin 0.63 ng/mL Abnormal <0.10 [facility] Comment on above: Performed By: #### M G3, PHOS3, BMP3, HEMDF #### [address] [place], [place] Interpretation See Below Normal [facility] Comment on above: Result Comment: PCT <0.50 = Low risk of severe sepsis and/or septic shock. PCT >2.00 = High risk of severe sepsis and/or septic shock. Performed By: #### M G3, PHOS3, BMP3, HEMDF #### [address] [place], [place] Basic Metabolic Panelon 08-30 Calcium [Mass/Vol] 10.5 mg/dL High 8.4-10.4 [facility] Comment on above: Performed By: #### M G3, PHOS3, BMP3, HEMDF #### [address] [place], [place] Glucose [Mass/Vol] 151 mg/dL High 70-100 [facility] Comment on above: Performed By: #### M G3, PHOS3, BMP3, HEMDF #### [facility] [address], [place] Urea nitrogen [Mass/Vol] 28 mg/dL High 7-20 [facility] Comment on above: Performed By: #### M G3, PHOS3, BMP3, HEMDF #### [facility] [address] [place], [place] Anion gap [Moles/Vol] 9 mmol/L Normal 3-13 [facility] Comment on above: Performed By: #### M G3, PHOS3, BMP3, HEMDF #### [facility] [address] [place], [place] CO2 [Moles/Vol] 32 mmol/L High 22-30 [facility] Comment on above: Performed By: #### M G3, PHOS3, BMP3, HEMDF #### [facility] [address] [place], [place] Creatinine [Mass/Vol] 2.35 mg/dL High 0.52-1.25 [facility] Comment on above: Performed By: #### M G3, PHOS3, BMP3, HEMDF #### [facility] [address] [place], [place] GFR/1.73 sq M predicted among blacks MDRD (S/P/Bld) [Vol rate/Area] 24.4 mL/min/{1.73_m2} Abnormal >60 [facility] Comment on above: Performed By: #### M G3, PHOS3, BMP3, HEMDF #### [facility] [address], [place] GFR/1.73 sq M predicted among non-blacks MDRD (S/P/Bld) [Vol rate/Area] 21.1 mL/min/{1.73_m2} Abnormal >60 [facility] Comment on above: Result Comment: KDIG O guidelines provide the following GFR categories: Stage GFR(ml/min/1.73 m2) Terms G1 >=90 Normal or high G2 60-89 Mildly decreased* G3a 45-59 Mildly to moderately decreased G3b 30-44 Moderately to severely decreased G4 15-29 Severely decreased G5 <15 Kidney failure *Relative to young adult level. In the absence of evidence of kidney damage, neither GFR category G1 nor G2 fulfill the criteria for CKD. The CKD-EPI equation is validated in individuals 18 years of age and older. Currently the best equation for estimating glomerular filtration rate (GFR) from serum creatinine in children is the Bedside Lee equation. It is less accurate in patients with extremes of muscle mass, restriction of dietary protein, ingestion of creatine, extra-renal metabolism of creatinine, or treatment with medications that affect renal tubular creatinine secretion. Performed By: #### M G3, PHOS3, BMP3, HEMDF #### [address] [address] Chloride [Moles/Vol] 99 mmol/L Normal 98-[address] [facility] Comment on above: Performed By: #### M G3, PHOS3, BMP3, HEMDF #### [address] [address] Potassium [Moles/Vol] 4.3 mmol/L Normal 3.5-5.1 [facility] Comment on above: Performed By: #### M G3, PHOS3, BMP3, HEMDF #### [address] [address] Sodium [Moles/Vol] 140 mmol/L Normal 135-145 [facility] Comment on above: Performed By: #### M G3, PHOS3, BMP3, HEMDF #### [address] [address] CR Chest Portableon 09-14-19 21 CR Chest Portable Patient Name: BRITTA YOUNG Diagnostic Radiology ACCESSION EXAM DATE/TIME PROCEDURE ORDERING PROVIDER [id number] 09/14/2020 18:30 EST CR Chest Portable MD EVELIA, OSVALDO Vega CPT code 00982 Reason For Exam (CR Chest Portable) vomiting blood Report SINGLE FRONTAL VIEW OF THE CHEST CLINICAL INDICATION: vomiting blood TECHNIQUE: Single frontal view of the chest COMPARISON: 11/28/2010 FINDINGS: Lungs show no significant consolidation. No pleural effusion or pneumothorax. No vascular congestion. Heart size normal. Right central venous catheter tip is in the SVC. IMPRESSION: 1. No acute finding. Report Dictated on Final Dictated: 09/14/2020 6:40 pm Dictating Physician: MD ROMERO JOHN R Signed Date and Time: 09/14/2020 6:41 pm Signed by: MD ROMERO JOHN R Transcribed Date and Time: 09/14/2020 6:40 Normal [facility] ED Provider Noteon ED Provider Note I examined this charisse ent with my preceptor. Rafaela Augustin 09/14/202046 Normal [facility] ED Provider Note Emergency Department Encounter [facility] 5N OVERFLOW Patient: Britta Young : 1955 Date of Evaluation: 09/14/2020 ED Supervising Physician: Jassi Melendrez MD I independently examined and evaluated Britta Young. In brief, Britta Young is a 64 y.o. female that presents to the emergency department soon for upper GI bleed Focused exam: Vitals stable. Patient has no peritonitis. Having coffee-ground emesis Brief ED course/MDM: Patient presenting with concern for upper GI bleed. She was recently started on Eliquis. Vitals are stable feel she is safe for admission to the floor All diagnostic, treatment, and disposition decisions were made by myself in conjunction with the [facility]. For all further details of the patient's emergency department visit, please see their documentation. (Please note that portions of this note may have been completed with a voice recognition program. Efforts were made to edit the dictations but occasionally words are mis-transcribed.) Jassi Melendrez MD [employer] Jassi Melendrez MD 09/30/20 0755 Normal [facility] ED Provider Note Emergency DepartmentEncounter [facility] Patient: Britta Young : 1955 Date of Evaluation: 09/14/2020 ED [facility] Provider: Fidel Schuler PA-C ChiefComplaint Chief Complaint Patient presents with ? GI Bleeding vomitming blood (black in color per patient) post op hyterectomy two days ago. [place] Britta Young is a 64 y.o. female presents with hematemesis, dark coffee ground emesis with previously bright red blood per emesis that started today. She states she had hysterectomy 2 days ago and denies any incisional pain, lower abdominal pain or pressure or bleeding, vaginal bleeding. She does have some epigastric pressure especially with emesis. She denies chest pain or shortness of breath. She has been using oxycodone intermittently to combat her postoperative pain. She is on 2.5 mg of liquids. She denies any excessive NSAID usage. Pain is 4/10 aching in nature, comes and goes. She denies fevers, chills, dizziness. ROS: Review of Systems At least 10 systems reviewed and otherwise acutely negative except as in the [place]. Past History Past Medical History: Diagnosis Date ? Asthma ? Cancer (HCC) ? GERD (gastroesophageal reflux disease) ? History of blood transfusion ? Hyperlipidemia ? Hypertension ? Obesity ? Renal insufficiency ? Sleep apnea Past Surgical History: Procedure Laterality Date ? COLONOSCOPY ? ENDOMETRIAL ABLATION 2003 ? NUSRAT AND BSO 09/10/2020 NUSRAT/BSO/omentectomy snd debulking ? TONSILLECTOMY ? TUBAL LIGATION 1994 Social History Socioeconomic History ? Marital status: Single Spouse name: None ? Number of children: None ? Years of education: None ? Highest education level: None Occupational History ? None Social Needs ? Financial resource strain: None ? Food insecurity Worry: None Inability: None ? Transportation needs Medical: None Non-medical: None Tobacco Use ? Smoking status: Former Smoker ? Smokeless tobacco: Never Used Substance and Sexual Activity ? Alcohol use: Yes Comment: rare ? Drug use: Never ? Sexual activity: None Lifestyle ? Physical activity Days per week: None Minutes per session: None ? Stress: None Relationships ? Social connections Talks on phone: None Gets together: None Attends jain service: None Active member of club or organization: None Attends meetings of clubs or organizations: None Relationship status: None ? Intimate partner violence Fear of current or ex partner: None Emotionally abused: None Physically abused: None Forced sexual activity: None Other Topics Concern ? None Social History Narrative ? None Medications/Allergies Previous Medications ALBUTEROL SULFATE HFA (VENTOLIN HFA) 108 (90 BASE) MCG/ACT INHALER Inhale 2 puffs into the lungs every 6 hours as needed for Wheezing APIXABAN (ELIQUIS) 2.5 MG TABS TABLET Take 1 tablet by mouth 2 times daily for 28 days ATORVASTATIN (LIPITOR) 20 MG TABLET Take 20 mg by mouth daily BENZONATATE (TESSALON) 100 MG CAPSULE Take 100 mg by mouth 3 times daily as needed for Cough BUDESONIDE-FORMOTEROL (SYMBICORT) 160-4.5 MCG/ACT AERO Inhale 2 puffs into the lungs 2 times daily BUPROPION (WELLBUTRIN SR) 150 MG EXTENDED RELEASE TABLET Take 150 mg by mouth 2 times daily DIPHENHYDRAMINE (BENADRYL) 25 MG TABLET Take 25 mg by mouth every 6 hours as needed for Itching FLUTICASONE (FLONASE) 50 MCG/ACT NASAL SPRAY 1 spray by Each Nostril route daily HYDROCHLOROTHIAZIDE (HYDRODIURIL) 25 MG TABLET Take 25 mg by mouth daily LISINOPRIL (PRINIVIL;ZESTRIL) 20 MG TABLET Take 20 mg by mouth daily METOPROLOL (LOPRESSOR) 100 MG TABLET Take 100 mg by mouth 2 times daily NIFEDIPINE (PROCARDIA XL) 60 MG EXTENDED RELEASE TABLET Take 90 mg by mouth daily OMEPRAZOLE (PRILOSEC) 20 MG DELAYED RELEASE CAPSULE Take 20 mg by mouth Daily OXYCODONE (ROXICODONE) 5 MG IMMEDIATE RELEASE TABLET Take 1 tablet by mouth every 4 hours as needed for Pain for up to 5 days. POTASSIUM CHLORIDE (KLOR-CON) 20 MEQ PACKET Take 20 mEq by mouth 2 times daily Allergies Allergen Reactions ? Iodine Itching ? Seasonal Physical Exam ED Triage Vitals BP Temp Temp Source Pulse Resp SpO2 Height Weight 09/14/20 1755 09/14/20 1755 09/14/20 1755 09/14/20 1755 09/14/20 1755 09/14/20 1755 09/14/20 1755 09/14/20 1755 128/84 98.6 ?F (37 ?C) Temporal 96 16 97 % 5' 6 (1.676 m) (!) 304 lb (137.9 kg) Physical Exam Vitals signs and nursing note reviewed. Constitutional: General: She is not in acute distress. Appearance: She is not toxic-appearing or diaphoretic. Comments: Middle-aged female, nondistressed, cooperative. Dark liquid emesis noted within emesis bag no active vomiting on initial exam.. Alert and oriented x4, mentating appropriately. HENT: Head: Normocephalic and atraumatic. Right Ear: Hearing and external ear normal. Left Ear: Hearing and external ear normal. Nose: Nose normal. Eyes: General: No scleral icterus. Right eye: No discharge. Left eye: No discharge. Conjunctiva/sclera: Conjunctivae normal. Neck: Musculoskeletal: Full passive range of motion without pain, normal range of motion and neck supple. Normal range of motion. No neck rigidity. Cardiovascular: Rate and Rhythm: Normal rate and regular rhythm. Heart sounds: Normal heart sounds, S1 normal and S2 normal. Heart sounds not distant. No murmur. No friction rub. No gallop. No S3 or S4 sounds. Pulmonary: Effort: Pulmonary effort is normal. No accessory muscle usage or respiratory distress. Breath sounds: Normal breath sounds. No decreased breath sounds, wheezing, rhonchi or rales. Abdominal: General: Bowel sounds are normal. There is no distension. Palpations: Abdomen is soft. Tenderness: There is no abdominal tenderness. There is no guarding or rebound. Negative signs include Villarreal's sign. Musculoskeletal: Normal range of motion. Skin: General: Skin is warm. Neurological: Mental Status: She is alert and oriented to person, place, and time. GCS: GCS eye subscore is 4. GCS verbal subscore is 5. GCS motor subscore is 6. Gait: Gait normal. Diagnostics Labs: Labs Reviewed BASIC METABOLIC PANEL - Abnormal; Notable for the following components: Result Value CO2 32 (*) Glucose 151 (*) BUN 28 (*) CREATININE 2.35 (*) eGFR 24.4 (*) EGFR IF NonAfrican Cambodian 21.1 (*) Calcium 10.5 (*) All other components within normal limits Narrative: Test Performed by [facility], [facility] [place] [address] CBC - Abnormal; Notable for the following components: WBC 18.9 (*) RBC 2.86 (*) Hemoglobin 9.1 (*) Hematocrit 28.9 (*) MCV 101.0 (*) MCHC 31.6 (*) RDW 19.9 (*) All other components within normal limits Narrative: Test Performed by [facility], [facility] [place] [address] HEPATIC FUNCTION PANEL - Abnormal; Notable for the following components: Total Protein 8.3 (*) All other components within normal limits Narrative: Test Performed by [facility], [address] [place] [id number] GASTRIC OCCULT BLOOD PROTIME-INR Narrative: Test Performed by [facility], [address] [place] [address] ADD ON LAB TEST Narrative: Test Performed by [facility], [address] [place] [address] MAGNESIUM PHOSPHORUS PROCALCITONIN Radiographs: Xr Chest Portable Result Date: 09/14/2020 Patient Name: BRITTA YOUNG Diagnostic Radiology ACCESSION EXAM DATE/TIME PROCEDURE ORDERING PROVIDER [id number] 09/14/2020 18:30 EST CR Chest Portable MD EVELIA, OSVALDO Vega CPT code 31650 Reason For Exam (CR Chest Portable) vomiting blood Report SINGLE FRONTAL VIEW OF THE CHEST CLINICAL INDICATION: vomiting blood TECHNIQUE: Single frontal view of the chest COMPARISON: 11/28/2010 FINDINGS: Lungs show no significant consolidation. No pleural effusion or pneumothorax. No vascular congestion. Heart size normal. Right central venous catheter tip is in the SVC. IMPRESSION: 1. No acute finding. Report Dictated on --- Final --- Dictated: 09/14/2020 6:40 pm Dictating Physician: MD ROMERO JOHN R Signed Date and Time: 09/14/2020 6:41 pm Signed by: MD ROMERO JOHN R Transcribed Date and Time: 09/14/2020 6:40 Procedures: N/A EKG: All EKG's are interpreted by the Emergency Department Physician in the absence of a controls designer. Please see their note for interpretation of EKG. ED Course and MDM ED care was supervised by Dr. Melendrez who independently examined and evaluated the patient. Please see their attestation note for further details. For this encounter I wore N95 mask, surgical mask, safety goggles, gloves; patient also wore a mask provided by staff. In brief, Britta Young is a 64 y.o. female who presented to the emergency department with hematemesis. Patient comorbidities as listed above. 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 Carey; she was discharged on 28 days of 2.5 mg of Eliquis for VTE prophylaxis, plans to have postop follow-up in the office. In my differential considered GI bleeding, blood loss anemia, postoperative complication, among others. Initial medical management includes IV fluids, IV Protonix. Screening labs and imaging were initiated. Through ED course patient remained hemodynamically stable however did have repeated bouts of nausea so Phenergan was also given. This improved her symptoms. Lab workup results reviewed, hemoglobin actually up trending from prior at 9.1. White blood cell count is 18.9. Creatinine uptrending at 2.35 with BUN of 28. IV fluids running. Portable chest x-ray shows no acute disease. Given patient recently starting Eliquis after her surgery and now having hematemesis, GI bleeding feel she requires admission for gastroenterology consultation, likely upper endoscopy and further management. Discussed case with admitting hospitalist, gege on CTA for further characterization and to guide management. Patient admitted to [facility] in stable condition. Final Impression 1. Hematemesis with nausea 2. Acute kidney injury (HCC) DISPOSITION Admitted 09/14/2020 11:13:28 PM (Please note that portions of this note may have been completed with a voice recognition program.Efforts were made to edit the dictations but occasionally words are mis-transcribed.) Fidel Schuler PA-C [employer] Fidel Schuler PA-C 09/15/20 1216 [facility] ED Provider Note I did not participat e in the care of this patient. Petrona Nelson, RENDERING EQUIPMENT TENDER - DISTRIBUTION CENTER ASSISTANT 09/14/202002 [facility] ED Provider Note Emergency Department Encounter [facility] EMERGENCY DEPT Patient: Britta Young : 1955 Date of Evaluation: 09/14/2020 ED Provider: OSVALDO ALTAMIRANO MD As the [id number], I performed a medical screening history and physical exam on this patient. HISTORY OF PRESENT ILLNESS In brief, Britta Young is a 64 y.o. female that presents for vomiting dark coffee grounds and previously red blood. PHYSICAL EXAM ED Triage Vitals Enc Vitals Group BP 09/14/201754 128/84 Pulse 09/14/20 175 96 Resp 09/14/20 1755 16 Temp 09/14/20 175 98.6 ?F (37 ?C) Temp Source 09/14/20 175 Temporal SpO2 09/14/201754 97 % Weight 09/14/20 175 (!) 304 lb (137.9 kg) Height 09/14/20 175 5' 6 (1.676 m) Head Circumference -- Peak Flow -- Pain Score -- Pain Loc -- Pain Edu? -- Excl. in GC? -- On brief exam General appearance: Well-appearing, no acute distress. Psych: Awake alert. Pleasant and cooperative. Skin: Warm and dry. Neck: Supple. Cardiovascular: RRR Lungs: Respirations unlabored . We will initiate diagnostics/treatments as indicated and place in main ED as soon as available. OSVALDO ALTAMIRANO MD [employer] Osvaldo Altamirano MD 09/14/20 180 Normal [facility] Hemogramon 09-14-2020 Erythrocyte distribution width (RBC) [Ratio] 19.9 % High 11.5-14.5 [facility] Comment on above: Performed By: #### M G3, PHOS3, BMP3, HEMDF #### [address] Hematocrit (Bld) [Volume fraction] 28.9 % Low 35.0-47.0 [facility] Comment on above: Performed By: #### M G3, PHOS3, BMP3, HEMDF #### [address] Hemoglobin (Bld) [Mass/Vol] 9.1 g/dL Low 11.7-16.0 [facility] Comment on above: Performed By: #### M G3, PHOS3, BMP3, HEMDF #### [address] MCH (RBC) [Entitic mass] 32.0 pg Normal 26.0-34.0 [facility] Comment on above: Performed By: #### M G3, PHOS3, BMP3, HEMDF #### [place] [address] [address] [place], [place] MCHC (RBC) [Mass/Vol] 31.6 % Low 32.0-36.0 [facility] Comment on above: Performed By: #### M G3, PHOS3, BMP3, HEMDF #### [place] [address] [address] [place], [place] MCV (RBC) [Entitic vol] 101.0 fL High 79.0-98.0 S [facility] Comment on above: Performed By: #### M G3, PHOS3, BMP3, HEMDF #### [address] [place] [address] [address] [place], [place] Platelet mean volume (Bld) [Entitic vol] 10.3 fL Normal 7.4-10.4 [facility] Comment on above: Performed By: #### M G3, PHOS3, BMP3, HEMDF #### [place] [address] [place], [place] Platelets (Bld) [#/Vol] 228 10*3/uL Normal 140-440 [facility] Comment on above: Performed By: #### M G3, PHOS3, BMP3, HEMDF #### [place] [address] [address] [place], [place] RBC (Bld) [#/Vol] 2.86 10*6/uL Low 3.80-5.20 [facility] Comment on above: Performed By: #### M G3, PHOS3, BMP3, HEMDF #### [place] [address] [address] [place], [place] WBC (Bld) [#/Vol] 18.9 10*3/uL High 3.6-10.7 [facility] Comment on above: Performed By: #### M G3, PHOS3, BMP3, HEMDF #### [place] [address] [address] [place], [place] Hepatic Functionon 1 ALP [Catalytic activity/Vol] 83 U/L Normal 38-126 [facility] Comment on above: Performed By: #### M G3, PHOS3, BMP3, HEMDF #### [place] [address] [address] [place], [place] ALT [Catalytic activity/Vol] 33 U/L Normal 0-34 [facility] Comment on above: Result Comment: The ALT test is performed by an updated assay method. Please note that the reference intervals have been changed and are now sex specific. Performed By: #### M G3, PHOS3, BMP3, HEMDF #### [place] [address] [address] [place], [place] AST [Catalytic activity/Vol] 33 U/L Normal 15-46 [facility] Comment on above: Performed By: #### M G3, PHOS3, BMP3, HEMDF #### [place] [address] [address] [place], [place] Bilirubin [Mass/Vol] 1.1 mg/dL Normal 0.2-1.[address] [facility] Comment on above: Performed By: #### M G3, PHOS3, BMP3, HEMDF #### [place] [address] [address] [place], [place] Bilirubin.direct [Mass/Vol] 0.0 mg/dL Normal 0.0-0.3 [facility] Comment on above: Performed By: #### M G3, PHOS3, BMP3, HEMDF #### [place] [address] [address] [place], [place] Protein [Mass/Vol] 8.3 g/dL High 6.3-8.2 [facility] Comment on above: Performed By: #### M G3, PHOS3, BMP3, HEMDF #### [place] [address] [address] [place], [place] Albumin [Mass/Vol] 4.5 g/dL Normal 3.5-5.0 [facility] Comment on above: Performed By: #### M G3, PHOS3, BMP3, HEMDF #### [place] [address] [address] [place], [place] Prothrombin Timeon 1 INR Coag (PPP) [Relative time] 1.1 Normal 0.9-1.1 [facility] Comment on above: Result Comment: David mmended Anticoagulant Therapy: SEE BELOW ----- INR of 2.0 - 3.0 : - Prophylaxis of Venous Thrombosis (high-risk surgery) - Treatment of Venous Thrombosis - Treatment of Pulmonary Embolism (Includes tissue heart valves, Acute Myocardial Infarction to prevent systemic embolism, Valvular Heart Disease, and Atrial Fibrillation) ----- INR of 2.5 - 3.5 : - Mechanical Prosthetic Valves (high risk) - If oral anticoagulant therapy is used to prevent Myocardial Infarction Performed By: #### Arden G3, PHOS3, BMP3, HEMDF #### [address] PT Coag (PPP) [Time] 11.4 s Normal 9.0-12.[address] [facility] Comment on above: Result Comment: . Performed By: #### Arden G3, PHOS3, BMP3, HEMDF #### [address] CBCon 09-11-2020 Interpretation and review of laboratory results Abnormal [facility] Work Phone: Test Performed by [id number] [place] [address] Work Phone: Hemogramon 09-11-2020 Erythrocyte distribution width (RBC) [Ratio] 20.3 % High 11.5-14.5 [facility] Work Phone: Comment on above: Performed By: #### Arden G3, PHOS3, BMP3, HEMDF #### [address] Hematocrit (Bld) [Volume fraction] 26.1 % Low 35.0-47.0 [facility] Work Phone: Comment on above: Performed By: #### Arden G3, PHOS3, BMP3, HEMDF #### [address] Hemoglobin (Bld) [Mass/Vol] 8.4 g/dL Low 11.7-16.0 [facility] Work Phone: Comment on above: Performed By: #### Arden G3, PHOS3, BMP3, HEMDF #### [address], [place] MCH (RBC) [Entitic mass] 32.8 pg Normal 26.0-34.0 [facility] Work Phone: [phone] Comment on above: Performed By: #### M G3, PHOS3, BMP3, HEMDF #### [employer] [place] [address] [address] [place], [place] MCHC (RBC) [Mass/Vol] 32.3 % Normal 32.0-36.0 [facility] Work Phone: [phone] Comment on above: Performed By: #### M G3, PHOS3, BMP3, HEMDF #### [facility] [place] [place] [address] [address] [place], [place] MCV (RBC) [Entitic vol] 101.6 fL High 79.0-98.0 [facility] Work Phone: [phone] Comment on above: Performed By: #### Arden G3, PHOS3, BMP3, HEMDF #### [facility] [place] [place] [address] [address] [place], [place] Platelet mean volume (Bld) [Entitic vol] 10.8 fL High 7.4-10.4 [facility] Work Phone: [phone] Comment on above: Performed By: #### M G3, PHOS3, BMP3, HEMDF #### [employer] [address] [address] [place], [place] Platelets (Bld) [#/Vol] 165 10*3/uL Normal 140-440 [facility] Work Phone: [phone] Comment on above: Performed By: #### M G3, PHOS3, BMP3, HEMDF #### [facility] [place] [place] [address] [address] [place], [place] RBC (Bld) [#/Vol] 2.56 10*6/uL Low 3.80-5.20 [facility] Work Phone: [phone] Comment on above: Performed By: #### M G3, PHOS3, BMP3, HEMDF #### [employer] [address] [address] [place], [place] WBC (Bld) [#/Vol] 14.9 10*3/uL High 3.6-10.7 [employer] Work Phone: Comment on above: Performed By: #### M G3, PHOS3, BMP3, HEMDF #### [address] [id number] Op Noteon 09-10-2020 Op Note PATIENT: MABLE YOUNG ADMISSION DATE: 09/10/2020 SURGERY DATE: 09/10/2020 DATE OF : 1955 AGE: 64 ADMITTING PHYSICIAN: Aravind Carey MD ATTENDING PHYSICIAN: Aravind Carey MD DICTATING PHYSICIAN: Aravind Carey MD OPERATIVE RECORD Procedure: BSO FOR OVARIAN MALIGNANCY WITH NUSRAT, OMENTECTOMY, RADICAL DISSECTION FOR DEBULKING. Preoperative Diagnoses: 1. Clinical stage DEB ovarian cancer based upon PET scanning status post neoadjuvant chemotherapy. 2. Morbid obesity. Postoperative Diagnoses: 1. Clinical stage DEB ovarian cancer based upon PET scanning status post neoadjuvant chemotherapy. 2. Morbid obesity. 3. 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 Anesthesia: General. Description of Findings: The patient did have residual tumor involving the anterior abdominal wall around the umbilicus, which was resected in its entirety. There were 2 nodules noted in the omentum, which was resected in its entirety. No evidence of disease was found on the diaphragms, or the mesenteric surfaces of the large or small bowel. The entire small bowel was run. However, close to the ligament of Treitz, there is an approximately 8-9 cm pulsatile retroperitoneal mass that appears to be some type of mesenteric aneurysm, is not associated with her malignancy. There was also a few tumor nodules noted in the pelvis, cul-de-sac, and on the left side of the sigmoid colon, which were all resected. At the completion of the operation, all gross disease had been removed. Description of Procedure: The patient was identified and brought to the operating room. After administration of general anesthesia, underwent abdominoperineal and vaginal prep and drape. A Ambrose catheter was placed. She was draped in a supine position with the compression stockings on and running. Time-out was performed. Antibiotics were given. Using a knife, a midline incision was made, sharply dividing down through the skin with a scalpel followed by Bovie cautery for the subcutaneous tissue and the fascia. The peritoneal cavity was opened using Metzenbaum scissors. A large approximately 3 x 4 cm anterior abdominal wall metastasis was noted, which was dissected off around the umbilical area by dissecting and removing some of the parietal peritoneum along with a small portion of the inferior fascia. Attention was then turned to the omentum after the Lokesh wound retractor and Bookwalter was used. Complete infra and supracolic omentectomy was then performed using the Ligasure to coagulate and divide the vascular pedicles coming off the greater curvature of the stomach starting in the hepatic flexure, continuing up to the splenic flexure. The lesser sac was explored and no evidence of disease was noted. The small bowel was run. There was an approximately baseball size pulsatile mass that was in the mesentery of the small bowel approximate the ligament of Treitz which had been noted on the CT scan. This was clearly retroperitoneal and was not part of the ovarian cancer process. Attention was then turned down to the pelvis. The nodule in the left adnexal area along with the sigmoid mesentery was resected in its entirety as well as the nodule within the left pericolic gutter. This was done using Bovie cautery. The pelvic sidewalls were opened. The ureter was identified. The ovarian vessels were skeletonized above the ureters using the Enseal device and divided. The bladder flap was dissected inferiorly. A tumor nodule in the cul-de-sac was further dissected out by dissecting the ureter off the medial aspect of the left broad ligament, and then coagulated and dividing the uterosacral ligament to remove the entire nodule. The uterine arteries were clamped, cut, and tied using 0 Vicryl in a transfixion fashion. The cardinal ligaments were serially clamped, cut, and tied using straight Zeppelins and 0 Vicryl transfixion sutures. The vaginal cuff was then cross-clamped with curved Zeppelins and sharply divided. The uterus, cervix, tubes, and ovaries handed off the field. The Zeppelins were replaced with 0 Vicryl transfixion sutures and the cuff was closed with 0-Vicryl [id number]. The pelvis was irrigated. Hemostasis was noted. This completed the debulking operation. Using the colon closure protocol, the fascia was then closed using a running #1 PDS in a loop mass closure system, followed by subcutaneous interrupted #1 PDS followed by subcuticular 3-0 Monocryl on the skin. EBL was about 500 cc. cc: David Corral M.D., [facility] Job ID: [id number] Aravind Carey MD DOD:09/10/2020 03:56 P SA/dsk DOT:09/10/2020 04:56 P Job Number: [id number] Document Number: [id number] cc: Aravind Carey MD [address] [facility] [id number] [facility] Surgical Pathologyon 021 Surgical Pathology [id number] [facility], [facility] PATHOLOGY AND LABORATORY MEDICINE [address] [place], [place] [id number] FINAL SURGICAL PATHOLOGY REPORT NAME: BRITTA YOUNG : 1955 64 Y F BILLING NO.: [id number] LOCATION: [facility] 1702 PROCEDURE 09/10/2020 DATE: SURGEON: ARAVIND CAREY MD RECEIVED 09/13/2020 DATE: ATTENDING: ARAVIND CAREY MD REPORT DATE: 09/14/2020 COPIES TO: DIAGNOSIS: A. UMBILICAL NODULE, EXCISION - HIGH-GRADE SEROUS CARCINOMA B. OMENTUM, EXCISION - INVOLVED BY HIGH-GRADE SEROUS CARCINOMA C. OMENTAL NODULE, EXCISION - HIGH-GRADE SEROUS CARCINOMA D. SIGMOID NODULE, EXCISION - FIBROSIS, FAT NECROSIS, AND COLLECTIONS OF PSAMMOMA BODIES E. SIGMOID NODULE #2, EXCISION - EXTENSIVE FIBROSIS, HEMOSIDERIN LADEN MACROPHAGES, AND FAT NECROSIS WITH SCATTERED PSAMMOMA BODIES F. UTERUS, CERVIX, TUBES AND OVARIES, HYSTERECTOMY WITH BILATERAL SALPINGO-OOPHORECTOMY - UNREMARKABLE CERVIX, ATROPHIC ENDOMETRIUM, MYOMETRIUM WITH INTRAMURAL HEMOSIDERIN LADEN MACROPHAGES, LEIOMYOMAS, UNINVOLVED OVARIES AND FALLOPIAN TUBES WITH COLLECTIONS OF FOAMY MACROPHAGES G. CUL-DE-SAC NODULE, EXCISION - EXTENSIVE FIBROSIS AND HEMOSIDERIN LADEN MACROPHAGES SPECIMEN Procedure: Simple hysterectomy, Bilateral salpingo-oophorectomy, Omentectomy, Peritoneal tumor debulking Specimen Integrity of Right Ovary: Capsule intact Specimen Integrity of Left Ovary: Capsule intact TUMOR Primary Tumor Site: Indeterminate (only tumor remaining is in omentum and abdominal peritoneum) Histologic Type: Serous carcinoma Histologic Grade: High grade Tumor Size: Greatest Dimension (Centimeters) - 4 cm (umbilical nodule) Ovarian Surface Involvement: Absent Fallopian Tube Surface Involvement: Absent Implants: Present (sites) - Abdominal peritoneum, Omentum Other Tissue / Organ Involvement: Abdominal peritoneum, Omentum Largest Extrapelvic Peritoneal Focus: Macroscopic (greater than 2 cm) Peritoneal / Ascitic Fluid: Not submitted / unknown Treatment Effect: Moderate response identified (CRS 2) LYMPH NODES Regional Lymph Nodes: No lymph nodes submitted or found PATHOLOGIC STAGE CLASSIFICATION (pTNM, AJCC 8th Edition) Note: Reporting of pT, pN, and (when applicable) pM categories is based on information available to the pathologist at the time the report is issued. As per the AJCC (Chapter 1, 8th Ed.) it is the managing physician's responsibility to establish the final pathologic stage based upon all pertinent information, including but potentially not limited to this pathology report. 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 CLINICAL INFORMATION: Ovarian cancer. Stage 4A ovarian cancer status post chemo SPECIMEN: (A) TISSUE NOS (B) OMENTUM (C) TISSUE NOS (D) TISSUE NOS (E) TISSUE NOS (F) UTERUS (RFN), WITH/WITHOUT TUBES AND OVARIES (G) TISSUE NOS GROSS DESCRIPTION: A. Received in formalin labeled umbilical nodule is a single fragment of muhammad-rich and nodular fibrofatty tissue which measures 4 x 3.2 x 2 cm. The external surface is muhammad-rich, smooth, and glistening. The surgical surface is mostly fibrous tissue and segments of yellow-rich fatty tissue. The specimen is consistent with tumor deposits. Sectioning through reveals yellow to muhammad-rich and firm cut surfaces, which are well-circumscribed and well-encapsulated. Machine Striper sections are submitted in two cassettes. B. Received in formalin labeled omentum is a segment of omentum which measures 39 x 15 x 3 cm in greatest dimension. Evaluating the specimen reveals a focal area of possible tumor deposits which measure 1.5 x 1.5 x 1 cm. This area is muhammad-rich and nodular. The remainder of the omentum is mostly yellow-rich and lobulated fatty tissue. Sectioning through reveals an area of additional tumor deposits. The muhammad-rich and nodular areas are entirely submitted in cassette B1-2 and the additional area of possible tumor deposits submitted in B3. C. Received in formalin labeled omental nodule is a single fragment of yellow-rich fatty tissue which measures 2.6 x 1.5 x 1 cm. Present on one aspect of the specimen is a 0.3 x 0.3 cm muhammad-rich and nodular lesion. The lesion is bisected to reveal underlying heterogeneous and encapsulated lesion which measures 0.6 x 0.6 x 0.5 cm. The specimen is entirely submitted in a single cassette. D. Received in formalin labeled sigmoid nodule is a single fragment of yellow-rich fibrofatty tissue which measures 1.7 x 1.1 x 0.4 cm. Sectioning through reveals a possible nodule. The specimen is entirely submitted in a single cassette. E. Received in formalin labeled sigmoid nodule #2 is a single fragment of fibrofatty tissue which measures 3.2 x 1.8 x 0.8 cm. The specimen is serially sectioned through and submitted in total of two cassettes. F. Received in formalin labeled uterus, cervix, bilateral fallopian tubes and ovaries is a segment of uterus with an attached lower uterine segment and cervix, attached right adnexa and an attached left adnexa. The external surface is brown-rich, smooth, firm, with areas of surgical changes. The uterus and lower uterine segment and cervix weigh approximately 266 g and measure 14 x 10 x 8 cm. The cervix and lower uterine segment measure 3.5 x 3 x 2.9 cm. The cervix is muhammad-rich and disfigured. The two parallel aspects are arbitrarily identified as 12 pm and the other one is the 6 pm position. Sectioning through the uterus reveals multiple white and hard nodules that range from 1.1 x 1.1 x 1.1 cm to 7 x 6 x 6 cm. Further sectioning through reveals endometrial cavity. The endometrium measures approximately 0.2 cm in thickness and the underlying myometrium measures 2.6 cm in thickness. Further evaluating specimen reveals area of brown-rich material which measures 2.2 x 1 x 1 cm. The left fallopian tube is adherent to the left ovary. The left fallopian tube is removed to reveal an ovary which measures 3.5 x 2.5 x 2 cm. The left ovary weighs 6 g. Sectioning through reveals muhammad-rich cut surfaces with areas of orange and smooth material. The left fallopian tube measures 2.5 cm in length and 1 cm in thickness. Sectioning through reveals a pinpoint lumen. The right ovary measures 2.5 x 2 x 0.8 cm and weighs 1 g. The external surface is muhammad-rich and cerebriform. Serially sectioning through reveals muhammad-rich, smooth, and firm cut surfaces with no gross lesions. The right fallopian tube has a fimbriated end and measures 4 cm in length. Sectioning through reveals a pinpoint lumen. Further sectioning through reveals three plastic clips each measuring 1.7 x 0.4 x 0.4 cm which are lodged inside the lumen of the fallopian tube. Multiple assisted sales representative sections are submitted. Cassette Summary: F1- cervix (arbitrarily 12 pm), F2- cervix (arbitrarily 6 pm), F3-6- with A3-4- paired and F5-6- paired are full thickness of the endomyometrium, F7-8- sections of the myometrium with green material, F9-12- assisted sales representative sections of the hard nodules, F13-15- assisted sales representative sections of the left ovary, F16- left fallopian tube, F13 and F18- right ovary, F19- right fallopian tube. G. Received in formalin labeled cul-de-sac nodule are two fragments of brown-rich fibrofatty tissue that aggregate to 4 x 3 x 2 cm. Sectioning through reveals brown-rich cut surfaces. Multiple assisted sales representative sections are submitted in a total of two cassettes. ENK/[facility] Disclaimer: The following statement applies to all immunohistochemistry, in situ hybridization, molecular studies, and immunofluorescence testing. The use of one or more reagents in the above tests is regulated as an analyte specific reagent (ASR). These tests were developed and their performance characteristics determined by the clinical laboratories of [facility]. They have not been cleared by the US Food and Drug Administration (FDA). The FDA has determined that such clearance or approval is not necessary. All the above immunostains were performed on paraffin embedded tissue. Appropriate positive and negative controls (where applicable) were run in parallel with the patient's specimen; these controls showed expected staining pattern, with acceptable intensity of staining. Immunohistochemical assays have not been validated on decalcified tissues. Results should be interpreted with caution given the raised possibility of false negativity on decalcified specimens. Professional Performing Location: [place] [address]. DEPARTMENT OF PATHOLOGY AND LABORATORY MEDICINE [place], [place] [address] Normal [facility] TS GELon 09-10-2020 TS GEL ABO Group: B Rh, Gel: POS Antibody Screen Gel: NEG Normal [facility] Comment on above: Performed By: #### C RTGUSTAVO, ASHLEY, MONTEZ #### [address] [address] TYPE AND SCREENon 09-10-2020 Sodium [Moles/Vol] B [facility] Work Phone: [phone] Sodium [Moles/Vol] Positive [facility] Work Phone: Sodium [Moles/Vol] Negative [facility] Work Phone: Test Performed by [facility], [address] [place] [id number] [place] [address] Work Phone: Basic Metabolic Panelon 02- Calcium [Mass/Vol] 9.2 mg/dL Normal 8.4-10.4 [facility] Comment on above: Performed By: #### C ASHLEY GARCIA NAURR #### [facility] [address] [place] [address] Glucose [Mass/Vol] 111 mg/dL High 70-100 [facility] Comment on above: Performed By: #### C ASHLEY GARCIA, NAURR #### [facility] [address] [place], [place] Urea nitrogen [Mass/Vol] 35 mg/dL High 7-20 [facility] Comment on above: Performed By: #### C ASHLEY GARCIA, NAURR #### [facility] [address] [place], [place] Anion gap [Moles/Vol] 9 Normal [facility] Comment on above: Performed By: #### C ASHLEY GARCIA, NAURR #### [facility] [address], [place] CO2 [Moles/Vol] 25 mmol/L Normal 22-30 [facility] Comment on above: Performed By: #### C ASHLEY GARCIA, NAURR #### [facility] [address], [place] Creatinine [Mass/Vol] 1.97 mg/dL High 0.52-1.25 [facility] Comment on above: Performed By: #### C ASHLEY GARCIA, NAURR #### [facility] [address] [place] [address] GFR/1.73 sq M predicted among blacks MDRD (S/P/Bld) [Vol rate/Area] 30.2 mL/min/{1.73_m2} Abnormal >60 [facility] Comment on above: Performed By: #### C ASHLEY GARCIA, NAURR #### [facility] [address] [place] [address] GFR/1.73 sq M predicted among non-blacks MDRD (S/P/Bld) [Vol rate/Area] 26.1 mL/min/{1.73_m2} Abnormal >60 [facility] Comment on above: Result Comment: KDIG O guidelines provide the following GFR categories: Stage GFR(ml/min/1.73 m2) Terms G1 >=90 Normal or high G2 60-89 Mildly decreased* G3a 45-59 Mildly to moderately decreased G3b 30-44 Moderately to severely decreased G4 15-29 Severely decreased G5 <15 Kidney failure *Relative to young adult level. In the absence of evidence of kidney damage, neither GFR category G1 nor G2 fulfill the criteria for CKD. The CKD-EPI equation is validated in individuals 18 years of age and older. Currently the best equation for estimating glomerular filtration rate (GFR) from serum creatinine in children is the Bedside Lee equation. It is less accurate in patients with extremes of muscle mass, restriction of dietary protein, ingestion of creatine, extra-renal metabolism of creatinine, or treatment with medications that affect renal tubular creatinine secretion. Performed By: #### C ASHLEY GARCIA NAURR #### [address] Potassium [Moles/Vol] 4.5 mmol/L Normal 3.5-5.1 [facility] Comment on above: Performed By: #### ASHLEY BARNES NAURR #### [address] Chloride [Moles/Vol] 102 mmol/L Normal 98-[address] [facility] Comment on above: Performed By: #### C ASHLEY GARCIA NAURR #### [address] Sodium [Moles/Vol] 136 mmol/L Normal 135-145 [facility] Comment on above: Performed By: #### C ASHLEY GARCIA, NAURR #### [address] Anion gap [Moles/Vol] 9 mmol/L [facility] Work Phone: Calcium [Mass/Vol] 9.2 mg/dL 8.4 - 10. 4 mg/dL [facility] Work Phone: Chloride [Moles/Vol] 102 mmol/L 98 - 10 7 mmol/L [facility] Work Phone: [phone] CO2 [Moles/Vol] 25 mmol/L 22 - 30 mmol/L [facility] Work Phone: [phone] Creatinine [Mass/Vol] 1.97 mg/dL High 0.52 - 1.25 mg/dL [facility] Work Phone: [phone] EGFR IF NonAfrican Cambodian 26.1 mL/min Abnormal >60 [facility] Work Phone: [phone] Comment on above: KDIGO guidelines pro vide the following GFR categories: Stage GFR(ml/min/1.73 m2) Terms G1 >=90 Normal or high G2 60-89 Mildly decreased* G3a 45-59 Mildly to moderately decreased G3b 30-44 Moderately to severely decreased G4 15-29 Severely decreased G5 <15 Kidney failure *Relative to young adult level. In the absence of evidence of kidney damage, neither GFR category G1 nor G2 fulfill the criteria for CKD. The CKD-EPI equation is validated in individuals 18 years of age and older. Currently the best equation for estimating glomerular filtration rate (GFR) from serum creatinine in children is the Bedside Lee equation. It is less accurate in patients with extremes of muscle mass, restriction of dietary protein, ingestion of creatine, extra-renal metabolism of creatinine, or treatment with medications that affect renal tubular creatinine secretion. GFR/1.73 sq M predicted among blacks MDRD (S/P/Bld) [Vol rate/Area] 30.2 mL/min/{1.73_m2} Abnormal >60 [facility] Work Phone: [phone] Glucose [Mass/Vol] 111 mg/dL High 70 - 100 mg/dL [facility] Work Phone: [phone] Interpretation and review of laboratory results Abnormal [facility] Work Phone: [phone] Potassium [Moles/Vol] 4.5 mmol/L 3.5 - 5.1 mmol/L [facility] Work Phone: [phone] Sodium [Moles/Vol] 136 mmol/L 135 - 145 mmol/L [facility] Work Phone: [phone] Urea nitrogen [Mass/Vol] 35 mg/dL High 7 - 20 mg/dL [facility] Work Phone: [phone] Test Performed by [facility], [address] [place] [address] [facility] Work Phone: [phone] 09-09-2020 Erythrocyte distribution width (RBC) [Ratio] 20.5 % High 11.5 - 14.5 % [facility] Work Phone: () Hematocrit (Bld) [Volume fraction] 26.7 % Low 35 - 47 % [facility] Work Phone: () Hemoglobin (Bld) [Mass/Vol] 8.6 g/dL Low 11.7 - 16 g/dL [facility] Work Phone: [phone] Interpretation and review of laboratory results Abnormal [facility] Work Phone: [phone]() MCH (RBC) [Entitic mass] 32.8 pg 26 - 34 pg [facility] Work Phone: () MCHC (RBC) [Mass/Vol] 32.4 % 32 - 36 % [facility] Work Phone: () MCV (RBC) [Entitic vol] 101.4 fL High 79 - 98 fL [facility] Work Phone: () Platelet mean volume (Bld) [Entitic vol] 10.5 fL High 7.4 - 10.4 fL [facility] Work Phone: () [phone] Platelets (Bld) [#/Vol] 172 10*3/uL 140 - 440 10*3/uL [facility] Work Phone: [phone] 222 RBC (Bld) [#/Vol] 2.63 10*6/uL Low 3.8 - 5.2 10*6/uL [facility] Work Phone: [phone] 222 WBC (Bld) [#/Vol] 8.8 10*3/uL 3.6 - 10.7 10*3/uL [facility] Work Phone: 1() Test Performed by [facility], [facility] [place] [address] [facility] Work Phone: [phone] Hemogramon 09-09-2020 Erythrocyte distribution width (RBC) [Ratio] 20.5 % High 11.5-14.5 [facility] Comment on above: Performed By: #### C ASHLEY GARCIA NAURR #### [facility] [address], [place] Hematocrit (Bld) [Volume fraction] 26.7 % Low 35.0-47.0 [facility] Comment on above: Performed By: #### C RTGUSTAVO, OSMUR, NAURR #### [place] [address] [address], [place] Hemoglobin (Bld) [Mass/Vol] 8.6 g/dL Low 11.7-16.0 [facility] Comment on above: Performed By: #### C RTGUSTAVO, OSMUR, NAURR #### [place] [address] [address] [place], [place] MCH (RBC) [Entitic mass] 32.8 pg Normal 26.0-34.0 [facility] Comment on above: Performed By: #### C RTGUSTAVO, OSMGUSTAVO, NAURR #### [place] [address] [address] [place], [place] MCHC (RBC) [Mass/Vol] 32.4 % Normal 32.0-36.0 [facility] Comment on above: Performed By: #### C RTGUSTAVO, OSMUR, NAURR #### [place] [address] [address] [place], [place] MCV (RBC) [Entitic vol] 101.4 fL High 79.0-98.0 [facility] Comment on above: Performed By: #### C RTGUSTAVO, OSMGUSTAVO, NAURR #### [place] [address] [address] [place], [place] Platelet mean volume (Bld) [Entitic vol] 10.5 fL High 7.4-10.4 [facility] Comment on above: Performed By: #### C RTGUSTAVO, OSMUR, NAURR #### [place] [address] [address] [place], [place] Platelets (Bld) [#/Vol] 172 10*3/uL Normal 140-440 [facility] Comment on above: Performed By: #### C RTGUSTAVO, OSMUR, NAURR #### [place] [address] [address] [place], [place] RBC (Bld) [#/Vol] 2.63 10*6/uL Low 3.80-5.20 [facility] Comment on above: Performed By: #### C ASHLEY GARCIA NAURR #### [facility] [address], [place] WBC (Bld) [#/Vol] 8.8 10*3/uL Normal 3.6-10.7 [facility] Comment on above: Performed By: #### C ASHLEY GARCIA NAURR #### [facility] [address], [place] Whole blood hemoglobin A1c/t otal hemoglobin ratio (mass fraction)on 06-15-2020 HbA1c (Bld) [Mass fraction] 5.9 % 3.8-5.6 [facility] Comment on above: Normal < 5.7 % Predi abetic 5.7 - 6.4 % Diabetic >or= 6.5 % Please note range changes. Blood platelet morphology de termination (nominal result)on 05-25-2020 Platelet morphology finding Nom (Bld) LARGE [facility] Comment on above: RARE GIANT PLATELETS NOTED Laboratory - Chemistry and C hemistry - challengeon 05-25-2020 Cobalamin (Vitamin B12) [Mass/Vol] 468 pg/mL 211-911 [facility] No Panel Informationon 05-25 Atypical Lymphocytes Not Reportable [facility] Comment on above: Previous reported re sult: 2+ %Edited by: RAGHAVENDRA on 05/25/20:1111 AMENDED REPORT 05/25/20 1111 ATYPICAL LYMPH previously reported as: 2+ % Folate 5.10 ng/mL 3.1-55.4 [facility] Smudge cell detectionon 04-30 Smudge cells LM Ql (Bld) Not Reportable [facility] Comment on above: Previous reported re sult: 1+ Edited by: RAGHAVENDRA on 05/25/20:1111 AMENDED REPORT 05/25/20 1111 SMUDG previously reported as: 1+ H Vital Signs Date Time Vital Sign Value Performing Clinician Facility 05-06-2025 09:07-0400 Body height 167.[address] Stephie Velarde MD Work Phone: [facility] 05-06-2025 09:07-0400 Body mass index (BMI) [Ratio] 37.6 kg/m2 Dr. Stephie Velarde MD Work Phone: [facility] 05-06-2025 09:07-0400 Body temperature 98.2 [degF] Dr. Stephie Velarde MD Work Phone: [facility] 05-06-2025 09:07-0400 Body weight 105.[address] Stephie Velarde MD Work Phone: [facility] 05-06-2025 09:07-0400 Diastolic blood pressure 89 mm[Hg] Dr. Stephie Velarde MD Work Phone: [facility] 05-06-2025 09:07-0400 Heart rate 71 /min Dr. Stephie Velarde MD Work Phone: [facility] 05-06-2025 09:07-0400 Respiratory rate 18 /min Dr. Stephie Velarde MD Work Phone: [facility] 05-06-2025 09:07-0400 SaO2% (BldA) [Mass fraction] 98 % Dr. Stephie Velarde MD Work Phone: [facility] 05-06-2025 09:07-0400 Systolic blood pressure 143 mm[Hg] Dr. Stephie Velarde MD Work Phone: [facility] 04-29-2025 12:53-0400 Body temperature 96.6 [degF] Dr. Stephie Velarde MD Work Phone: [facility] 04-29-2025 12:53-0400 Diastolic blood pressure 73 mm[Hg] Dr. Stephie Velarde MD Work Phone: [facility] 04-29-2025 12:53-0400 Heart rate 71 /min Dr. Stephie Velarde MD Work Phone: [facility] 04-29-2025 12:53-0400 Respiratory rate 16 /min Dr. Stephie Velarde MD Work Phone: [facility] 04-29-2025 12:53-0400 Systolic blood pressure 104 mm[Hg] Dr. Stephie Velarde MD Work Phone: [facility] 04-29-2025 08:50-0400 Body mass index (BMI) [Ratio] 37.9 kg/m2 Dr. Stephie Velarde MD Work Phone: [facility] 04-29-2025 08:48-0400 SaO2% (BldA) [Mass fraction] 100 % Dr. Stephie Velarde MD Work Phone: [facility] 04-22-2025 17:04-0400 Diastolic blood pressure 85 mm[Hg] Dr. Stephie Velarde MD Work Phone: [facility] 04-22-2025 17:04-0400 Heart rate 75 /min Dr. Stephie Velarde MD Work Phone: [facility] 04-22-2025 17:04-0400 Systolic blood pressure 175 mm[Hg] Dr. Stephie Velarde MD Work Phone: [facility] 04-22-2025 13:40-0400 Body height 167.[address] Stephie Velarde MD Work Phone: [facility] 04-22-2025 13:40-0400 Body mass index (BMI) [Ratio] 38 kg/m2 Dr. Stephie Velarde MD Work Phone: [facility] 04-22-2025 13:40-0400 Body temperature 98.2 [degF] Dr. Stephie Velarde MD Work Phone: [facility] 04-22-2025 13:40-0400 Body weight 107.[address] Stephie Velarde MD Work Phone: [facility] 04-22-2025 13:40-0400 Diastolic blood pressure 86 mm[Hg] Dr. Stephie Velarde MD Work Phone: [facility] 04-22-2025 13:40-0400 Heart rate 66 /min Dr. Stephie Velarde MD Work Phone: [facility] 04-22-2025 13:40-0400 Respiratory rate 18 /min Dr. Stephie Velarde MD Work Phone: [facility] 04-22-2025 13:40-0400 SaO2% (BldA) [Mass fraction] 100 % Dr. Stephie Velarde MD Work Phone: [facility] 04-22-2025 13:40-0400 Systolic blood pressure 152 mm[Hg] Dr. Stephie Velarde MD Work Phone: [facility] 04-22-2025 12:54-0400 Body mass index (BMI) [Ratio] 38 kg/m2 Dr. Stephie Velarde MD Work Phone: [facility] 04-22-2025 12:54-0400 Body temperature 96.7 [degF] Dr. Stephie Velarde MD Work Phone: [facility] 04-22-2025 12:54-0400 Body weight 107.[address] Stephie Velarde MD Work Phone: [facility] 04-22-2025 12:54-0400 Respiratory rate 16 /min Dr. Stephie Velarde MD Work Phone: [facility] 04-22-2025 12:54-0400 SaO2% (BldA) [Mass fraction] 100 % Dr. Stephie Velarde MD Work Phone: [facility] 04-16-2025 13:00-0400 Body height 170.[address] Stephie Velarde MD Work Phone: [facility] 04-16-2025 13:00-0400 Body mass index (BMI) [Ratio] 41 kg/m2 Dr. Stephie Velarde MD Work Phone: [facility] 04-16-2025 13:00-0400 Body temperature 98.1 [degF] Dr. Stephie Velarde MD Work Phone: [facility] 04-16-2025 13:00-0400 Body weight 118.[address] Stephie Velarde MD Work Phone: [facility] 04-16-2025 13:00-0400 Diastolic blood pressure 88 mm[Hg] Dr. Stephie Velarde MD Work Phone: [facility] 04-16-2025 13:00-0400 Heart rate 73 /min Dr. Stephie Velarde MD Work Phone: [facility] 04-16-2025 13:00-0400 Respiratory rate 16 /min Dr. Stephie Velarde MD Work Phone: [facility] 04-16-2025 13:00-0400 SaO2% (BldA) [Mass fraction] 98 % Dr. Stephie Velarde MD Work Phone: [facility] 04-16-2025 13:00-0400 Systolic blood pressure 146 mm[Hg] Dr. Stephie Velarde MD Work Phone: [facility] 04-15-2025 14:45-0400 Diastolic blood pressure 85 mm[Hg] Dr. Stephie Velarde MD Work Phone: [facility] 04-15-2025 14:45-0400 Systolic blood pressure 193 mm[Hg] Dr. Stephie Velarde MD Work Phone: [facility] 04-15-2025 08:33-0400 Body height 170.[address] Stephie Velarde MD Work Phone: [facility] 04-15-2025 08:33-0400 Body temperature 98.3 [degF] Dr. Stephie Velarde MD Work Phone: [facility] 04-15-2025 08:33-0400 Diastolic blood pressure 94 mm[Hg] Dr. Stephie Velarde MD Work Phone: [facility] 04-15-2025 08:33-0400 Heart rate 63 /min Dr. Stephie Velarde MD Work Phone: [facility] 04-15-2025 08:33-0400 Respiratory rate 18 /min Dr. Stephie Velarde MD Work Phone: [facility] 04-15-2025 08:33-0400 SaO2% (BldA) [Mass fraction] 98 % Dr. Stephie Velarde MD Work Phone: [facility] 04-15-2025 08:33-0400 Systolic blood pressure 172 mm[Hg] Dr. Stephie Velarde MD Work Phone: [facility] 04-08-2025 11:28-0400 Body temperature 96.9 [degF] Dr. Stephie Velarde MD Work Phone: [facility] 04-08-2025 11:28-0400 Diastolic blood pressure 81 mm[Hg] Dr. Stephie Velarde MD Work Phone: [facility] 04-08-2025 11:28-0400 Heart rate 75 /min Dr. Stephie Velarde MD Work Phone: [facility] 04-08-2025 11:28-0400 Respiratory rate 16 /min Dr. Stephie Velarde MD Work Phone: [facility] 04-08-2025 11:28-0400 SaO2% (BldA) [Mass fraction] 98 % Dr. Stephie Velarde MD Work Phone: [facility] 04-08-2025 11:28-0400 Systolic blood pressure 174 mm[Hg] Dr. Stephie Velarde MD Work Phone: [facility] 04-08-2025 10:22-0400 Diastolic blood pressure 95 mm[Hg] Dr. Stephie Velarde MD Work Phone: [facility] 04-08-2025 10:22-0400 Systolic blood pressure 167 mm[Hg] Dr. Stephie Velarde MD Work Phone: [facility] 04-08-2025 08:57-0400 Body height 170.[address] Stephie Velarde MD Work Phone: [facility] 04-08-2025 08:57-0400 Body mass index (BMI) [Ratio] 37.7 kg/m2 Dr. Stephie Velarde MD Work Phone: [facility] 04-08-2025 08:57-0400 Body temperature 98.4 [degF] Dr. Stephie Velarde MD Work Phone: [facility] 04-08-2025 08:57-0400 Body weight 109.[address] Stephie Velarde MD Work Phone: [facility] 04-08-2025 08:57-0400 Diastolic blood pressure 91 mm[Hg] Dr. Stephie Velarde MD Work Phone: [facility] 04-08-2025 08:57-0400 Heart rate 68 /min Dr. Stephie Velarde MD Work Phone: [facility] 04-08-2025 08:57-0400 Respiratory rate 18 /min Dr. Stephie Velarde MD Work Phone: [facility] 04-08-2025 08:57-0400 SaO2% (BldA) [Mass fraction] 97 % Dr. Stephie Velarde MD Work Phone: [facility] 04-08-2025 08:57-0400 Systolic blood pressure 183 mm[Hg] Dr. Stephie Velarde MD Work Phone: [facility] 04-01-2025 14:52-0400 Body temperature 97.6 [degF] Dr. Stephie Velarde MD Work Phone: [facility] 04-01-2025 14:52-0400 Diastolic blood pressure 88 mm[Hg] Dr. Stephie Velarde MD Work Phone: [facility] 04-01-2025 14:52-0400 Heart rate 71 /min Dr. Stephie Velarde MD Work Phone: [facility] 04-01-2025 14:52-0400 Respiratory rate 16 /min Dr. Stephie Velarde MD Work Phone: [facility] 04-01-2025 14:52-0400 Systolic blood pressure 139 mm[Hg] Dr. Stephie Velarde MD Work Phone: [facility] 04-01-2025 11:44-0400 Body mass index (BMI) [Ratio] 37.6 kg/m2 Dr. Stephie Velarde MD Work Phone: [facility] 04-01-2025 11:44-0400 SaO2% (BldA) [Mass fraction] 99 % Dr. Stephie Velarde MD Work Phone: [facility] 03-25-2025 09:20-0400 Body height 167.[address] Stephie Velarde MD Work Phone: [facility] 03-25-2025 09:20-0400 Body mass index (BMI) [Ratio] 42.3 kg/m2 Dr. Stephie Velarde MD Work Phone: [facility] 03-25-2025 09:20-0400 Body temperature 97.6 [degF] Dr. Stephie Velarde MD Work Phone: [facility] 03-25-2025 09:20-0400 Body weight 118.[address] Stephie Velarde MD Work Phone: [facility] 03-25-2025 09:20-0400 Diastolic blood pressure 88 mm[Hg] Dr. Stephie Velarde MD Work Phone: [facility] 03-25-2025 09:20-0400 Heart rate 66 /min Dr. Stephie Velarde MD Work Phone: [facility] 03-25-2025 09:20-0400 Respiratory rate 18 /min Dr. Stephie Velarde MD Work Phone: [facility] 03-25-2025 09:20-0400 SaO2% (BldA) [Mass fraction] 99 % Dr. Stephie Velarde MD Work Phone: [facility] 03-25-2025 09:20-0400 Systolic blood pressure 141 mm[Hg] Dr. Stephie Velarde MD Work Phone: [facility] 03-18-2025 13:30-0400 Body temperature 97.9 [degF] Dr. Stephie Velarde MD Work Phone: [facility] 03-18-2025 13:30-0400 Diastolic blood pressure 61 mm[Hg] Dr. Stephie Velarde MD Work Phone: [facility] 03-18-2025 13:30-0400 Heart rate 64 /min Dr. Stephie Velarde MD Work Phone: [facility] 03-18-2025 13:30-0400 Respiratory rate 16 /min Dr. Stephie Velarde MD Work Phone: [facility] 03-18-2025 13:30-0400 SaO2% (BldA) [Mass fraction] 99 % Dr. Stephie Velarde MD Work Phone: [facility] 03-18-2025 13:30-0400 Systolic blood pressure 116 mm[Hg] Dr. Stephie Velarde MD Work Phone: [facility] 03-18-2025 08:49-0400 Body height 167.[address] Stephie Velarde MD Work Phone: [facility] 03-18-2025 08:49-0400 Body mass index (BMI) [Ratio] 42.3 kg/m2 Dr. Stephie Velarde MD Work Phone: [facility] 03-18-2025 08:49-0400 Body temperature 98.2 [degF] Dr. Stephie Velarde MD Work Phone: [facility] 03-18-2025 08:49-0400 Body weight 118.[address] Stephie Velarde MD Work Phone: [facility] 03-18-2025 08:49-0400 Diastolic blood pressure 83 mm[Hg] Dr. Stephie Velarde MD Work Phone: [facility] 03-18-2025 08:49-0400 Heart rate 63 /min Dr. Stephie Velarde MD Work Phone: [facility] 03-18-2025 08:49-0400 Respiratory rate 18 /min Dr. Stephie Velarde MD Work Phone: [facility] 03-18-2025 08:49-0400 SaO2% (BldA) [Mass fraction] 98 % Dr. Stephie Velarde MD Work Phone: [facility] 03-18-2025 08:49-0400 Systolic blood pressure 150 mm[Hg] Dr. Stephie Velarde MD Work Phone: [facility] 03-16-2025 14:08-0400 Body height 167.[address] Stephie Velarde MD Work Phone: [facility] 03-16-2025 14:08-0400 Body mass index (BMI) [Ratio] 42.3 kg/m2 Dr. Stephie Velarde MD Work Phone: [facility] 03-16-2025 14:08-0400 Body temperature 96.3 [degF] Dr. Stephie Velarde MD Work Phone: [facility] 03-16-2025 14:08-0400 Body weight 118.[address] Stephie Velarde MD Work Phone: [facility] 03-16-2025 14:08-0400 Diastolic blood pressure 74 mm[Hg] Dr. Stephie Velarde MD Work Phone: [facility] 03-16-2025 14:08-0400 Heart rate 75 /min Dr. Stephie Velarde MD Work Phone: [facility] 03-16-2025 14:08-0400 Respiratory rate 16 /min Dr. Stephie Velarde MD Work Phone: [facility] 03-16-2025 14:08-0400 SaO2% (BldA) [Mass fraction] 98 % Dr. Stephie Velarde MD Work Phone: [facility] 03-16-2025 14:08-0400 Systolic blood pressure 124 mm[Hg] Dr. Stephie Velarde MD Work Phone: [facility] 03-03-2025 13:16-0400 Body height 167.[address] Stephie Velarde MD Work Phone: [facility] 03-03-2025 13:16-0400 Body mass index (BMI) [Ratio] 40.6 kg/m2 Dr. Stephie Velarde MD Work Phone: [facility] 03-03-2025 13:16-0400 Body temperature 98.4 [degF] Dr. Stephie Velarde MD Work Phone: [facility] 03-03-2025 13:16-0400 Body weight 114.[address] Stephie Velarde MD Work Phone: [facility] 03-03-2025 13:16-0400 Diastolic blood pressure 82 mm[Hg] Dr. Stephie Velarde MD Work Phone: [facility] 03-03-2025 13:16-0400 Heart rate 78 /min Dr. Stephie Velarde MD Work Phone: [facility] 03-03-2025 13:16-0400 Respiratory rate 18 /min Dr. Stephie Velarde MD Work Phone: [facility] 03-03-2025 13:16-0400 SaO2% (BldA) [Mass fraction] 95 % Dr. Stephie Velarde MD Work Phone: [facility] 03-03-2025 13:16-0400 Systolic blood pressure 135 mm[Hg] Dr. Stephie Velarde MD Work Phone: [facility] 01-23-2025 11:56-0400 Body height 167.6 cm Aravind Carey MD Work Phone: [facility] 01-23-2025 11:56-0400 Body mass index (BMI) [Ratio] 47.13 kg/m2 Aravind Carey MD Work Phone: [facility] 01-23-2025 11:56-0400 Body weight 132.45 kg Aravind Carey MD Work Phone: [facility] 01-23-2025 11:56-0400 Diastolic blood pressure 83 mm[Hg] Aravind Carey MD Work Phone: [facility] 01-23-2025 11:56-0400 Heart rate 62 /min Aravind Carey MD Work Phone: [facility] 01-23-2025 11:56-0400 Systolic blood pressure 158 mm[Hg] Aravind Carey MD Work Phone: [facility] 01-15-2025 10:38-0400 Diastolic blood pressure 81 mm[Hg] Juan Brice MD Work Phone: [facility] 01-15-2025 10:38-0400 Systolic blood pressure 136 mm[Hg] Juan Brice MD Work Phone: [facility] 01-15-2025 10:32-0400 Body height 170.2 cm Juan Brice MD Work Phone: [facility] 01-15-2025 10:32-0400 Body mass index (BMI) [Ratio] 41.35 kg/m2 Juan Brice MD Work Phone: [facility] 01-15-2025 10:32-0400 Body temperature 97 [degF] Juan Brice MD Work Phone: [facility] 01-15-2025 10:32-0400 Body weight 119.75 kg Juan Brice MD Work Phone: [facility] 01-15-2025 10:32-0400 Heart rate 68 /min Juan Brice MD Work Phone: [facility] 01-15-2025 10:32-0400 SaO2% (BldA) [Mass fraction] 97 % Juan Brice MD Work Phone: [facility] 01-13-2025 15:24-0400 Body height 167.[address] Stephie Velarde MD Work Phone: [facility] 01-13-2025 15:24-0400 Body mass index (BMI) [Ratio] 41.3 kg/m2 Dr. Stephie Velarde MD Work Phone: [facility] 01-13-2025 15:24-0400 Body temperature 98.2 [degF] Dr. Stephie Velarde MD Work Phone: [facility] 01-13-2025 15:24-0400 Body weight 116.[address] Stephie Velarde MD Work Phone: [facility] 01-13-2025 15:24-0400 Diastolic blood pressure 90 mm[Hg] Dr. Stephie Velarde MD Work Phone: [facility] 01-13-2025 15:24-0400 Heart rate 66 /min Dr. Stephie Velarde MD Work Phone: [facility] 01-13-2025 15:24-0400 Respiratory rate 18 /min Dr. Stephie Velarde MD Work Phone: [facility] 01-13-2025 15:24-0400 SaO2% (BldA) [Mass fraction] 98 % Dr. Stephie Velarde MD Work Phone: [facility] 01-13-2025 15:24-0400 Systolic blood pressure 169 mm[Hg] Dr. Stephie Velarde MD Work Phone: [facility] 12-25-2024 14:38-0400 Body height 167.[address] Stephie Velarde MD Work Phone: [facility] 12-25-2024 14:38-0400 Body mass index (BMI) [Ratio] 41.3 kg/m2 Dr. Stephie Velarde MD Work Phone: [facility] 12-25-2024 14:38-0400 Body temperature 97.5 [degF] Dr. Stephie Velarde MD Work Phone: [facility] 12-25-2024 14:38-0400 Body weight 116.[address] Stephie Velarde MD Work Phone: [facility] 12-25-2024 14:38-0400 Diastolic blood pressure 83 mm[Hg] Dr. Stephie Velarde MD Work Phone: [facility] 12-25-2024 14:38-0400 Heart rate 71 /min Dr. Stephie Velarde MD Work Phone: [facility] 12-25-2024 14:38-0400 Respiratory rate 18 /min Dr. Stephie Velarde MD Work Phone: [facility] 12-25-2024 14:38-0400 SaO2% (BldA) [Mass fraction] 97 % Dr. Stephie Velarde MD Work Phone: [facility] 12-25-2024 14:38-0400 Systolic blood pressure 148 mm[Hg] Dr. Stephie Velarde MD Work Phone: [facility] 12-23-2024 12:11-0400 Diastolic blood pressure 99 mm[Hg] Juan Brice MD Work Phone: [facility] 12-23-2024 12:11-0400 Systolic blood pressure 185 mm[Hg] Juan Brice MD Work Phone: [facility] 12-23-2024 12:02-0400 Body height 167.6 cm Juan Brice MD Work Phone: [facility] 12-23-2024 12:02-0400 Body mass index (BMI) [Ratio] 42.68 kg/m2 Juan Brice MD Work Phone: [facility] 12-23-2024 12:02-0400 Body temperature 97.3 [degF] Juan Brice MD Work Phone: [facility] 12-23-2024 12:02-0400 Body weight 119.93 kg uJan Brice MD Work Phone: [facility] 12-23-2024 12:02-0400 Heart rate 70 /min Juan Brice MD Work Phone: [facility] 12-23-2024 12:02-0400 SaO2% (BldA) [Mass fraction] 98 % Juan Brice MD Work Phone: [facility] 11-20-2024 10:26-0400 Diastolic blood pressure 78 mm[Hg] Eduin Blackman MD Work Phone: [facility] 11-20-2024 10:26-0400 Systolic blood pressure 144 mm[Hg] Eduin Blackman MD Work Phone: [facility] 11-20-2024 09:29-0400 Body height 170.2 cm Eduin Blackman MD Work Phone: [facility] 11-20-2024 09:29-0400 Body mass index (BMI) [Ratio] 39.94 kg/m2 Eduin Blackman MD Work Phone: [facility] 11-20-2024 09:29-0400 Body weight 115.67 kg Eduin Blackman MD Work Phone: [facility] Comment on above: pt reported 11-20-2024 09:29-0400 Heart rate 76 /min Eduin Blackman MD Work Phone: [facility] 11-19-2024 10:32-0400 Body height 165.1 cm Bigg Pan MD Work Phone: [facility] 11-19-2024 10:32-0400 Body mass index (BMI) [Ratio] 42.43 kg/m2 Bigg Pan MD Work Phone: [facility] 11-19-2024 10:32-0400 Body weight 115.67 kg Bigg Pan MD Work Phone: [facility] 11-19-2024 10:32-0400 Diastolic blood pressure 78 mm[Hg] Bigg Pan MD Work Phone: [facility] 11-19-2024 10:32-0400 Heart rate 75 /min Bigg Pan MD Work Phone: [facility] 11-19-2024 10:32-0400 Systolic blood pressure 135 mm[Hg] Bigg Pan MD Work Phone: [facility] 09-30-2024 15:53-0500 Body temperature 97.9 [degF] Dr. Stephie Velarde MD Work Phone: [facility] 09-30-2024 15:53-0500 Diastolic blood pressure 82 mm[Hg] Dr. Stephie Velarde MD Work Phone: [facility] 09-30-2024 15:53-0500 Heart rate 76 /min Dr. Stephie Velarde MD Work Phone: [facility] 09-30-2024 15:53-0500 Respiratory rate 18 /min Dr. Stephie Velarde MD Work Phone: [facility] 09-30-2024 15:53-0500 SaO2% (BldA) [Mass fraction] 100 % Dr. Stephie Velarde MD Work Phone: [facility] 09-30-2024 15:53-0500 Systolic blood pressure 149 mm[Hg] Dr. Stephie Velarde MD Work Phone: [facility] 09-30-2024 02:59-0500 Body mass index (BMI) [Ratio] 41.9 kg/m2 Dr. Stephie Velarde MD Work Phone: [facility] 09-30-2024 02:59-0500 Body weight 117.[address] Stephie Velarde MD Work Phone: [facility] 09-10-2024 13:12-0500 Body temperature 97.6 [degF] Dr. Stephie Velarde MD Work Phone: [facility] 09-10-2024 13:12-0500 Diastolic blood pressure 97 mm[Hg] Dr. Stephie Velarde MD Work Phone: [facility] 09-10-2024 13:12-0500 Heart rate 79 /min Dr. Stephie Velarde MD Work Phone: [facility] 09-10-2024 13:12-0500 Respiratory rate 18 /min Dr. Stephie Velarde MD Work Phone: [facility] 09-10-2024 13:12-0500 SaO2% (BldA) [Mass fraction] 98 % Dr. Stephie Velarde MD Work Phone: [facility] 09-10-2024 13:12-0500 Systolic blood pressure 155 mm[Hg] Dr. Stephie Velarde MD Work Phone: [facility] 09-03-2024 14:33-0500 Body mass index (BMI) [Ratio] 41.1 kg/m2 Dr. Stephie Velarde MD Work Phone: [facility] 09-03-2024 14:33-0500 Body temperature 98.8 [degF] Dr. Stephie Velarde MD Work Phone: [facility] 09-03-2024 14:33-0500 Body weight 119.[address] Stephie Velarde MD Work Phone: [facility] 09-03-2024 14:33-0500 Diastolic blood pressure 104 mm[Hg] Dr. Stephie Velarde MD Work Phone: [facility] 09-03-2024 14:33-0500 Heart rate 87 /min Dr. Stephie Velarde MD Work Phone: [facility] 09-03-2024 14:33-0500 Respiratory rate 18 /min Dr. Stephie Velarde MD Work Phone: [facility] 09-03-2024 14:33-0500 SaO2% (BldA) [Mass fraction] 98 % Dr. Stephie Velarde MD Work Phone: [facility] 09-03-2024 14:33-0500 Systolic blood pressure 160 mm[Hg] Dr. Stephie Velarde MD Work Phone: [facility] 04-22-2024 16:37-0400 Body temperature 97.5 [degF] Dr. Stephie Velarde MD Work Phone: [facility] 04-22-2024 16:37-0400 Diastolic blood pressure 98 mm[Hg] Dr. Stephie Velarde MD Work Phone: [facility] 04-22-2024 16:37-0400 Heart rate 69 /min Dr. Stephie Velarde MD Work Phone: [facility] 04-22-2024 16:37-0400 Respiratory rate 18 /min Dr. Stephie Velarde MD Work Phone: [facility] 04-22-2024 16:37-0400 SaO2% (BldA) [Mass fraction] 100 % Dr. Stepihe Velarde MD Work Phone: [facility] 04-22-2024 16:37-0400 Systolic blood pressure 162 mm[Hg] Dr. Stephie Velarde MD Work Phone: [facility] 04-15-2024 13:48-0400 Body mass index (BMI) [Ratio] 40.7 kg/m2 Dr. Stephie Velarde MD Work Phone: [facility] 11-29-2023 14:22-0400 Body height 170.[address] Stephie Velarde Work Phone: [facility] 11-29-2023 14:22-0400 Body mass index (BMI) [Ratio] 44.1 kg/m2 Dr. Stephie Velarde Work Phone: [facility] 11-29-2023 14:22-0400 Body temperature 98.2 [degF] Dr. Stephie Velarde Work Phone: [facility] 11-29-2023 14:22-0400 Body weight 128.[address] Stephie Velarde Work Phone: [facility] 11-29-2023 14:22-0400 Diastolic blood pressure 85 mm[Hg] Dr. Stephie Velarde Work Phone: [facility] 11-29-2023 14:22-0400 Heart rate 65 /min Dr. Stephie Velarde Work Phone: [facility] 11-29-2023 14:22-0400 Respiratory rate 18 /min Dr. Stephie Velarde Work Phone: [facility] 11-29-2023 14:22-0400 SaO2% (BldA) [Mass fraction] 97 % Dr. Stephie Velarde Work Phone: [facility] 11-29-2023 14:22-0400 Systolic blood pressure 149 mm[Hg] Dr. Stephie Velarde Work Phone: [facility] 10-04-2023 12:52-0500 Body mass index (BMI) [Ratio] 35.5 kg/m2 Dr. Stephie Velarde Work Phone: [facility] 10-04-2023 12:52-0500 Body temperature 98.2 [degF] Dr. Stephie Velarde Work Phone: [facility] 10-04-2023 12:52-0500 Body weight 102.[address] Stephie Velarde Work Phone: [facility] 10-04-2023 12:52-0500 Diastolic blood pressure 84 mm[Hg] Dr. Stephie Velarde Work Phone: [facility] 10-04-2023 12:52-0500 Respiratory rate 16 /min Dr. Stephie Velarde Work Phone: [facility] 10-04-2023 12:52-0500 SaO2% (BldA) [Mass fraction] 96 % Dr. Stephie Velarde Work Phone: [facility] 10-04-2023 12:52-0500 Systolic blood pressure 156 mm[Hg] Dr. Stephie Velarde Work Phone: [facility] 08-27-2023 15:06-0500 Body mass index (BMI) [Ratio] 43 kg/m2 Dr. Stephie Velarde Work Phone: [facility] 08-27-2023 15:06-0500 Body temperature 97.3 [degF] Dr. Stephie Velarde Work Phone: [facility] 08-27-2023 15:06-0500 Body weight 124.[address] Stephie Velarde Work Phone: [facility] 08-27-2023 15:06-0500 Diastolic blood pressure 86 mm[Hg] Dr. Stephie Velarde Work Phone: [facility] 08-27-2023 15:06-0500 Heart rate 87 /min Dr. Stephie Velarde Work Phone: [facility] 08-27-2023 15:06-0500 Respiratory rate 16 /min Dr. Stephie Velarde Work Phone: [facility] 08-27-2023 15:06-0500 SaO2% (BldA) [Mass fraction] 95 % Dr. Stephie Velarde Work Phone: [facility] 08-27-2023 15:06-0500 Systolic blood pressure 126 mm[Hg] Dr. Stephie Velarde Work Phone: [facility] 05-08-2023 12:40-0400 Body temperature 98.01 [degF] Darlene Forde RENDERING EQUIPMENT TENDER.DISTRIBUT[employer] CENTER ASSISTANT Work Phone: [facility] 05-08-2023 12:40-0400 Body weight 132.09 kg Darlene Forde RENDERING EQUIPMENT TENDER.DISTRIBUTION CENTER ASSISTANT Work Phone: [facility] 05-08-2023 12:40-0400 Diastolic blood pressure 84 mm[Hg] Darlnee Forde RENDERING EQUIPMENT TENDER.DISTRIBUTION CENTER ASSISTANT Work Phone: [facility] 05-08-2023 12:40-0400 Heart rate 65 /min Darlene Forde RENDERING EQUIPMENT TENDER.DISTRIBUTION CENTER ASSISTANT Work Phone: [facility] 05-08-2023 12:40-0400 Respiratory rate 18 /min Darlene Forde RENDERING EQUIPMENT TENDER.DISTRIBUTION CENTER ASSISTANT Work Phone: [facility] 05-08-2023 12:40-0400 SaO2% (BldA) [Mass fraction] 99 % Darlene Forde RENDERING EQUIPMENT TENDER.DISTRIBUTION CENTER ASSISTANT Work Phone: [facility] 05-08-2023 12:40-0400 Systolic blood pressure 142 mm[Hg] Darlene Forde RENDERING EQUIPMENT TENDER.DISTRIBUTION CENTER ASSISTANT Work Phone: [facility] 03-15-2023 12:32-0400 Body temperature 97 [degF] Dr. Stephie Velarde Work Phone: [facility] 03-15-2023 12:32-0400 Diastolic blood pressure 79 mm[Hg] Dr. Stephie Velarde Work Phone: [facility] 03-15-2023 12:32-0400 Heart rate 67 /min Dr. Stephie Velarde Work Phone: [facility] 03-15-2023 12:32-0400 Respiratory rate 16 /min Dr. Stephie Velarde Work Phone: [facility] 03-15-2023 12:32-0400 Systolic blood pressure 153 mm[Hg] Dr. Stephie Velarde Work Phone: [facility] 03-14-2023 15:06-0400 Body mass index (BMI) [Ratio] 43.9 kg/m2 Dr. Stephie Velarde Work Phone: [facility] 11-08-2022 15:25-0400 Body height 170.[address] Stephie Velarde Work Phone: [facility] 11-08-2022 15:19-0400 Body mass index (BMI) [Ratio] 45.7 kg/m2 Dr. Stephie Velarde Work Phone: [facility] 11-08-2022 15:19-0400 Body temperature 98.2 [degF] Dr. Stephie Velarde Work Phone: [facility] 11-08-2022 15:19-0400 Body weight 132.[address] Stephie Velarde Work Phone: [facility] 11-08-2022 15:19-0400 Diastolic blood pressure 64 mm[Hg] Dr. Stephie Velarde Work Phone: [facility] 11-08-2022 15:19-0400 Heart rate 73 /min Dr. Stephie Velarde Work Phone: [facility] 11-08-2022 15:19-0400 Respiratory rate 17 /min Dr. Stephie Velarde Work Phone: [facility] 11-08-2022 15:19-0400 Systolic blood pressure 100 mm[Hg] Dr. Stephie Velarde Work Phone: [facility] 10-25-2022 13:16-0400 Diastolic blood pressure 89 mm[Hg] Dr. Stephie Velarde Work Phone: [facility] 10-25-2022 13:16-0400 Heart rate 69 /min Dr. Stephie Velarde Work Phone: [facility] 10-25-2022 13:16-0400 Respiratory rate 18 /min Dr. Stephie Velarde Work Phone: [facility] 10-25-2022 13:16-0400 Systolic blood pressure 153 mm[Hg] Dr. Stephie Velarde Work Phone: [facility] 08-31-2022 15:01-0500 Body mass index (BMI) [Ratio] 44.6 kg/m2 Dr. Stephie Velarde Work Phone: [facility] 08-31-2022 15:01-0500 Body temperature 98.2 [degF] Dr. Stephie Velarde Work Phone: [facility] 08-31-2022 15:01-0500 Body weight 129.[address] Stephie Velarde Work Phone: [facility] 08-31-2022 15:01-0500 Diastolic blood pressure 104 mm[Hg] Dr. Stephie Velarde Work Phone: [facility] 08-31-2022 15:01-0500 Heart rate 66 /min Dr. Stephie Velarde Work Phone: [facility] 08-31-2022 15:01-0500 Respiratory rate 17 /min Dr. Stephie Velarde Work Phone: [facility] 08-31-2022 15:01-0500 SaO2% (BldA) [Mass fraction] 99 % Dr. Stephie Velarde Work Phone: [facility] 08-31-2022 15:01-0500 Systolic blood pressure 190 mm[Hg] Dr. Stephie Velarde Work Phone: [facility] 08-09-2022 13:11-0500 Body mass index (BMI) [Ratio] 44.8 kg/m2 Dr. Stephie Velarde Work Phone: [facility] 08-09-2022 13:11-0500 Body temperature 98.5 [degF] Dr. Stephie Velarde Work Phone: [facility] 08-09-2022 13:11-0500 Body weight 129.[address] Stephie Velarde Work Phone: [facility] 08-09-2022 13:11-0500 Diastolic blood pressure 92 mm[Hg] Dr. Stephie Velarde Work Phone: [facility] 08-09-2022 13:11-0500 Heart rate 84 /min Dr. Stephie Velarde Work Phone: [facility] 08-09-2022 13:11-0500 Respiratory rate 12 /min Dr. Stephie Velarde Work Phone: [facility] 08-09-2022 13:11-0500 SaO2% (BldA) [Mass fraction] 99 % Dr. Stephie Velarde Work Phone: [facility] 08-09-2022 13:11-0500 Systolic blood pressure 156 mm[Hg] Dr. Stephie Velarde Work Phone: [facility] 11-01-2021 10:18-0400 Body height 168.9 cm Lynnette Ebony RENDERING EQUIPMENT TENDER.DISTRIBUT[employer] CENTER ASSISTANT Work Phone: [facility] 11-01-2021 10:18-0400 Body weight 120.84 kg Lynnette [place] RENDERING EQUIPMENT TENDER.DISTRIBUTION CENTER ASSISTANT Work Phone: [facility] 11-01-2021 10:18-0400 Diastolic blood pressure 70 mm[Hg] Lynnette [place] RENDERING EQUIPMENT TENDER.DISTRIBUTION CENTER ASSISTANT Work Phone: [facility] 11-01-2021 10:18-0400 Systolic blood pressure 124 mm[Hg] Lynnette Ebony RENDERING EQUIPMENT TENDER.DISTRIBUTION CENTER ASSISTANT Work Phone: [facility] 02-03-2021 15:10-0400 Body temperature 98.1 [degF] Dr. Stephie Velarde Work Phone: [facility] 02-03-2021 15:10-0400 Diastolic blood pressure 68 mm[Hg] Dr. Stephie Velarde Work Phone: [facility] 02-03-2021 15:10-0400 Heart rate 75 /min Dr. Stephie Velarde Work Phone: [facility] 02-03-2021 15:10-0400 Respiratory rate 16 /min Dr. Stephie Velarde Work Phone: [facility] 02-03-2021 15:10-0400 SaO2% (BldA) [Mass fraction] 100 % Dr. Stephie Velarde Work Phone: [facility] 02-03-2021 15:10-0400 Systolic blood pressure 142 mm[Hg] Dr. Stephie Velarde Work Phone: [facility] 02-03-2021 09:19-0400 Body mass index (BMI) [Ratio] 40.6 kg/m2 Dr. Stephie Velarde Work Phone: [facility] 02-03-2021 09:19-0400 Body weight 114.[address] Stephie Velarde Work Phone: [facility] 09-12-2020 08:48-0500 Body Temperature 98.49 [degF] Aravind BASS Work Phone: 09-12-2020 08:48-0500 BP Diastolic 65 mm[Hg] Aravind BASS Work Phone: 09-12-2020 08:48-0500 BP Systolic 125 mm[Hg] Aravind BASS Work Phone: 09-12-2020 08:48-0500 Pulse (Heart Rate) 76 /min Aravind BASS Work Phone: 09-12-2020 08:48-0500 Pulse Oximetry 94 % Aravind BASS Work Phone: 09-12-2020 08:48-0500 Respiratory Rate 16 /min Aravind BASS Work Phone: 09-10-2020 12:32-0500 BMI (Body Mass Index) 50.36 kg/m2 Aravind BASS Work Phone: 09-10-2020 12:32-0500 Body weight 141.52 kg Aravind BASS Work Phone: 09-10-2020 12:32-0500 Height 167.6 cm Aravind BASS Work Phone: 09-09-2020 11:59-0500 BMI (Body Mass Index) 50.36 kg/m2 Aravind BASS Work Phone: 09-09-2020 11:59-0500 Body Temperature 98.4 [degF] Aravind BASS Work Phone: 09-09-2020 11:59-0500 Body weight 141.52 kg Aravind BASS Work Phone: 09-09-2020 11:59-0500 BP Diastolic 70 mm[Hg] Aravind BASS Work Phone: 09-09-2020 11:59-0500 BP Systolic 104 mm[Hg] Aravind BASS Work Phone: 09-09-2020 11:59-0500 Height 167.6 cm Aravind BASS Work Phone: 09-09-2020 11:59-0500 Pulse (Heart Rate) 69 /min Aravind BASS Work Phone: 09-09-2020 11:59-0500 Pulse Oximetry 99 % Aravind BASS Work Phone: 09-09-2020 11:59-0500 Respiratory Rate 20 /min Aravind BASS Work Phone: Encounters Encounter Date Encounter Type Care Provider Facility Start: 06-09-2025 ambulatory Stephie Velarde [facility] ty:[facility] Start: 06-01-2025 ambulatory David Corral Facility:[facility] Start: 05-27-2025 End: 05-27-2025 ambulatory Stephie Velarde Facility:[facility] Start: 05-08-2025 ambulatory David Rileybenita Facility :[facility] Start: 05-06-2025 End: 05-06-2025 Dr. David Corral MD -[facility] Work Phone: Start: 05-06-2025 End: 05-06-[address] Stephie Velarde MD Work Phone: -[facility] Start: 04-22-2025 End: 04-22-2025 Dr. David Corral MD -[facility] Work Phone: Start: 04-22-2025 End: 04-22-[address] Stephie Velarde MD Work Phone: -[facility] Start: 04-16-2025 End: 04-16-2025 Darlene Chin LEAD ATG DEVELOPER-C -[facility] al Medicine Work Phone: Start: 04-16-2025 End: 04-16-[address] Stephie Velarde MD Work Phone: [facility] Start: 04-15-2025 ambulatory Bebo Saxena y:[facility] Start: 04-15-2025 End: 04-15-[address] Stephie Velarde MD Work Phone: -[facility] Start: 04-15-2025 End: 04-15-2025 Berna Dangelo LEAD ATG DEVELOPER-C -[facility] Work Phone: Start: 04-08-2025 End: 04-08-[address] Stephie Velarde MD Work Phone: -[facility] Start: 04-08-2025 End: 04-08-2025 Berna Dangelo LEAD ATG DEVELOPER-C -[facility] Work Phone: Start: 03-25-2025 End: 03-25-[address] Stephie Velarde MD Work Phone: -[facility] Start: 03-25-2025 End: 03-25-2025 Dr. David Corral MD -[facility] Work Phone: Start: 03-18-2025 Berna Dangelo LEAD ATG DEVELOPER-C -[facility] Start: 03-18-2025 End: 03-18-2025 Berna Dangelo LEAD ATG DEVELOPER-C -[facility] Work Phone: Start: 03-18-2025 End: 03-18-[address] Stephie Velarde MD Work Phone: -[facility] Start: 03-16-2025 End: 03-16-[address] Stephie Velarde MD -[facility] Work Phone: Start: 03-16-2025 End: 03-16-2025 Dr. Stephie Velarde MD -[facility] Work Phone: Start: 03-16-2025 End: 03-16-[address] Stephie Velarde MD Work Phone: -[facility] Start: 03-03-[address] David Corral MD -[facility] Start: 03-03-2025 End: 03-03-[address] Stephie Velarde MD Work Phone: -Radiology [facility] Start: 03-03-2025 End: 03-03-[address] David Corral MD -Radiology [facility] Work Phone: Start: 03-03-2025 End: 03-03-2025 Dr. David Corral MD -Radiology [facility] Work Phone: Start: 03-03-2025 End: 03-03-[address] David Corral MD -[facility] Work Phone: Start: 03-03-2025 End: 03-03-2025 Dr. David Corral MD -[facility] Work Phone: Start: 03-03-2025 End: 03-03-[address] Stephie Velarde MD Work Phone: -[facility] Start: 03-03-2025 End: 03-03-2025 ambulatory David Corral Facility:[facility] Start: 02-12-2025 End: 02-12-2025 Follow-up encounter Aravind Carey MD Work Phone: [facility] Comment on above: PET/CT skull base to mid thigh Start: 02-09-2025 End: 02-09-2025 Subsequent hospital visit by physician Aravind Carey MD Work Phone: [facility] PET Comment on above: Abnormal CT of the a bdomen; Malignant neoplasm of both ovaries (HCC) Start: 02-09-2025 End: 02-09-2025 ambulatory [facility] Start: 01-26-2025 End: 01-26-2025 Telephone encounter Aravind Carey MD Work Phone: [facility] [place] Start: 01-23-2025 End: 01-23-2025 Office outpatient visit 10 minutes Aravind Carey MD Work Phone: [facility] Comment on above: Malignant neoplasm o f both ovaries (HCC) (Primary Dx); Incisional hernia, without obstruction or gangrene; History of ovarian cancer; Abnormal CT of the abdomen Start: 01-23-2025 End: 01-23-2025 ambulatory [facility] Start: 01-20-2025 End: 01-20-2025 Telephone encounter Aravind Carey MD Work Phone: [facility] Start: 01-15-2025 End: 01-15-2025 Office outpatient visit 15 minutes Juan Brice MD Work Phone: [facility] Comment on above: Incisional hernia, w ithout obstruction or gangrene (Primary Dx); History of ovarian cancer; Class 3 severe obesity with body mass index (BMI) of 40.0 to 44.9 in adult, unspecified obesity type, unspecified whether serious comorbidity present; Abnormal CT of the abdomen Start: 01-15-2025 End: 01-15-2025 ambulatory [facility] Start: 01-13-2025 End: 01-13-[address] David Corral MD -[facility] Work Phone: Start: 01-13-2025 End: 01-13-2025 Dr. David Corral MD -[facility] Work Phone: Start: 01-13-2025 End: 01-13-[address] Stephie Velarde MD Work Phone: [facility] Work Phone: Start: 01-08-2025 End: 01-08-[address] Stephie Velarde MD Work Phone: [facility] Work Phone: Start: 01-08-2025 End: 01-08-[address] David Corral MD [facility] Work Phone: Start: 01-08-2025 End: 01-08-2025 Dr. David Corral MD -[facility] Work Phone: Start: 01-08-2025 End: 01-08-2025 ambulatory Stephie Velarde Facility:[facility] Start: 01-01-2025 End: 03-03-2025 Follow-up encounter Eryn Lutz PA-C Work Phone: [facility] [place] Comment on above: CT abdomen pelvis wo IV contrast Start: 01-01-2025 End: 01-08-2025 Telephone encounter Eryn Lutz PA-C Work Phone: [facility] [place] Comment on above: Results (CT) Start: 12-31-2024 End: 01-01-2025 Follow-up encounter Harris Jordan PA-C Work Phone: [facility] [place] Comment on above: Nerve conduction julianne t with EMG Start: 12-31-2024 End: 12-31-2024 Subsequent hospital visit by physician Eryn uLtz PA-C Work Phone: [facility] Comment on above: Abdominal wall bulge ; History of laparotomy; History of ovarian cancer Start: 12-31-2024 End: 12-31-2024 [facility] Start: 12-29-2024 End: 01-11-2025 Telephone encounter Eduin Blackman MD Work Phone: [facility] Comment on above: Other (MRi) Start: 12-29-2024 End: 12-29-2024 ambulatory [facility] Start: 12-29-2024 End: 12-29-2024 Subsequent hospital visit by physician Eduin Blackman MD Work Phone: [facility] Comment on above: Weakness Start: 12-25-2024 End: 12-25-[address] David Corral MD -[facility] Work Phone: Start: 12-25-2024 End: 12-25-[address] Stephie Velarde MD Work Phone: [facility] Work Phone: Start: 12-25-[address] David Corral MD -[facility] Start: 12-25-2024 End: 12-25-2024 Dr. David Corral MD -[facility] Work Phone: Start: 12-23-2024 End: 12-23-2024 ambulatory JUNA BRICE [facility] Start: 12-23-2024 End: 12-23-2024 Office outpatient new 45 minutes Juan Brice MD Work Phone: [facility] [place] Comment on above: Abdominal wall bulge (Primary Dx); History of laparotomy; History of ovarian cancer Start: 12-23-2024 ambulatory Ivan Salazar Facilit y:[facility] Start: 12-19-2024 End: 12-19-2024 ambulatory [facility] Start: 12-03-2024 End: 12-04-2024 Telephone encounter Juan Brice MD Work Phone: [facility] [place] Start: 11-24-2024 End: 11-27-2024 Telephone encounter Eduin Blackman MD Work Phone: [facility] Comment on above: Other (Scheduling ) Start: 11-20-2024 End: 11-20-2024 Office outpatient new 30 minutes Eduin Blackman MD Work Phone: [facility] Comment on above: Weakness (Primary Dx ) Start: 11-20-2024 End: 11-20-2024 ambulatory EDUIN BLACKMAN [facility] Start: 11-19-2024 End: 11-19-2024 ambulatory BIGG PAN [facility] Start: 11-19-2024 End: 11-19-2024 Office outpatient new 45 minutes Bigg Pan MD Work Phone: [facility] [place] Comment on above: Weakness (Primary Dx ) Start: 10-27-2024 End: 12-12-2024 Telephone encounter Valerio Kong MD Work Phone: [facility] [place] Comment on above: Appointment Start: 09-30-2024 Dr. Jose Fernandez MD -[facility] Work Phone: Start: 09-29-2024 Dr. Jose Fernandez MD -[facility] Work Phone: Start: 09-28-2024 Dr. Diana Crowell MD - [facility] Work Phone: Start: 09-27-2024 ambulatory Stephie Mariee ty:[facility] Start: 09-27-2024 Dr. Jerome Loja MD -[facility] Start: 09-26-2024 ambulatory Diana Crowell Facility :[facility] Start: 09-26-2024 End: 09-30-2024 Evaluation and management of inpatient Chemo Ramirez Facility:[facility] Start: 09-26-2024 End: 09-30-2024 Dr. Jose Fernandez MD -Progressive Care Unit Work Phone: Start: 09-10-2024 End: 09-10-2024 Berna SHARIF -[facility] Work Phone: Start: 09-10-2024 End: 09-10-2024 ambulatory Stephie Velarde Facility:[facility] Start: 09-03-2024 End: 09-03-2024 Dr. Stephie Velarde MD -[facility] Work Phone: Start: 09-03-2024 End: 09-03-2024 ambulatory Stephie Velarde Facility:[facility] Start: 09-03-2024 End: 09-03-2024 ambulatory Efcandidanisswadyllan Velarde Facility:[facility] Start: 06-12-2024 End: 06-12-2024 ambulatory Stephie Velarde Facility:[facility] Start: 06-12-2024 End: 06-12-2024 ambulatory Stephie Velarde Facility:[facility] Start: 12-26-2023 End: 12-26-2023 ambulatory MASONHIDDEN VALLEYDYLLAN VELARDE Facility:[facility] Start: 12-26-2023 Documentation procedure Mammog luisana Coordinator [facility] Department Start: 12-26-2023 Letter encounter Mammography Coordinator [facility] Department Start: 12-26-2023 End: 12-26-2023 Subsequent hospital visit by physician Screen Mammo [facility] Start: 11-30-2023 Non-patient / Non-visit Dr. Jaspal Velarde Work Phone: [facility] Start: 11-30-2023 End: 11-30-[address] Stephie Velarde Work Phone: [facility] Work Phone: Start: 11-30-2023 End: 11-30-[address] Stephie Velarde Work Phone: [facility]-Cardiov[facility]cul[facility] r [facility] Work Phone: Start: 11-29-2023 End: 11-29-[address] Stephie Velarde Work Phone: [facility] Work Phone: Start: 11-29-[address] Jose Velarde Work Phone: [facility] On[facility] Start: 10-04-2023 End: 10-04-[address] Stephie Velarde Work Phone: [facility] Work Phone: Start: 08-27-2023 End: 08-27-[address] Stephie Velarde Work Phone: [facility] Work Phone: Start: 05-08-2023 End: 05-08-2023 ambulatory STEPHIE VELARDE Facility:[facility] Start: 05-08-2023 End: 05-08-2023 Patient encounter procedure Darlene Forde APRN.CNP Work Phone: [facility] Comment on above: Chronic dental pain (Primary Dx) Start: 11-08-[address] Jose Velarde Work Phone: [facility] Oncology Start: 11-08-2022 End: 11-08-[address] Stephie Velarde Work Phone: [facility] Start: 11-03-2022 End: 11-03-[address] Stephie Velarde Work Phone: [facility] Work Phone: Start: 11-03-2022 End: 11-03-[address] Stephie Velarde Work Phone: [facility] Start: 10-25-2022 End: 10-25-[address] Stephie Velarde Work Phone: [facility] Care Start: 08-31-2022 End: 08-31-[address] Stephie Velarde Work Phone: [facility] Start: 08-09-2022 End: 08-09-[address] Stephie Velarde Work Phone: [facility] Internal Medicine Start: 06-06-2022 Documentation procedure Mammog liusana Coordinator [facility] Start: 06-06-2022 Letter encounter Mammography Coordinator [facility] Department Start: 06-05-2022 End: 06-05-2022 Subsequent hospital visit by physician Screen Mammo [facility] Comment on above: Encounter for screen ing mammogram for breast cancer [Z12.31] Start: 11-03-2021 Telephone encounter Lynnette charles APRN.CNP Work Phone: OB/Gynecology Comment on above: Results Start: 11-01-2021 End: 11-01-2021 Patient encounter procedure Lynnette Beck APRN.CNP Work Phone: OB/Gynecology Comment on above: Encounter for gyneco logical examination (general) (routine) without abnormal findings (Primary Dx); Encounter for screening mammogram for breast cancer; Vaginal odor Start: 11-01-2021 End: 11-01-2021 Patient encounter status Lynnette Beck APRN.CNP Work Phone: OB/Gynecology Start: 09-10-2020 End: 09-12-2020 Evaluation and management of inpatient Aravind Carey Work Phone: [facility] Comment on above: Post-op pain (Primar y Dx) Start: 09-09-2020 End: 09-09-2020 Subsequent hospital visit by physician Aravind Carey Work Phone: [facility] Comment on above: Arrived Procedures Date Procedure Procedure Detail Performing Clinician Start: 05-06-2025 Urine microscopy: re d cells Dr. Stephie Velarde MD Work Phone: Start: 05-06-2025 Urnls dip stick/tabl et reagent auto microscopy Dr. Stephie Velarde MD Work Phone: Start: 05-06-2025 Mean corpuscular hemoglobin concentration determination Dr. Stephie Velarde MD Work Phone: Start: 05-06-[address] Jaspal Velarde MD Work Phone: Start: 05-06-2025 Nucleated red blood cell count procedure Dr. Stephie Velarde MD Work Phone: Start: 05-06-2025 Platelet mean volume determination Dr. Stephie Velarde MD Work Phone: Start: 05-06-[address] Stephie Velarde MD Work Phone: Start: 04-22-2025 Blood count smear mc rscp w/mnl difrntl wbc count Dr. Stephie Velarde MD Work Phone: Start: 04-22-[address] Stephie Velarde MD Work Phone: Start: 04-22-2025 Mean corpuscular hemoglobin concentration determination Dr. Stephie Velarde MD Work Phone: Start: 04-22-2025 Nucleated red blood cell count procedure Dr. Stephie Velarde MD Work Phone: Start: 04-22-2025 Platelet mean volume determination Dr. Stephie Velarde MD Work Phone: Start: 04-15-2025 Blood count smear mc rscp w/mnl difrntl wbc count Dr. Stephie Velarde MD Work Phone: Start: 04-15-[address] Stephie Velarde MD Work Phone: Start: 04-15-2025 Mean corpuscular hemoglobin concentration determination Dr. Stephie Velarde MD Work Phone: Start: 04-15-2025 Nucleated red blood cell count procedure Dr. Stephie Velarde MD Work Phone: Start: 04-15-2025 Platelet mean volume determination Dr. Stephie Velarde MD Work Phone: Start: 04-15-2025 Urine microscopy: re d cells Dr. Stephie Velarde MD Work Phone: Start: 04-15-2025 Urnls dip stick/tabl et reagent auto microscopy Dr. Stephie Velarde MD Work Phone: Start: 04-08-2025 Blood count smear mc rscp w/mnl difrntl wbc count Dr. Stephie Velarde MD Work Phone: Start: 04-08-[address] Stephie Velarde MD Work Phone: Start: 04-08-2025 Lymphocyte percent differential count Dr. Stephie Velarde MD Work Phone: Start: 04-08-2025 Mean corpuscular hemoglobin concentration determination Dr. Stephie Velarde MD Work Phone: Start: 04-08-2025 Nucleated red blood cell count procedure Dr. Stephie Velarde MD Work Phone: Start: 04-08-2025 Platelet mean volume determination Dr. Stephie Velarde MD Work Phone: Start: 04-01-[address] Stephie Velarde MD Work Phone: Start: 04-01-[address] Stephie Velarde MD Work Phone: Start: 04-01-[address] measurement [address] Stephie Velarde MD Work Phone: Start: 03-25-2025 Blood count smear mc rscp w/mnl difrntl wbc count Dr. Stephie Velarde MD Work Phone: Start: 03-25-[address] Stephie Velarde MD Work Phone: Start: 03-25-2025 Mean corpuscular hemoglobin concentration determination Dr. Stephie Velarde MD Work Phone: Start: 03-25-2025 Nucleated red blood cell count procedure Dr. Stephie Velarde MD Work Phone: Start: 03-25-2025 Platelet mean volume determination Dr. Stephie Velarde MD Work Phone: Start: 03-18-2025 Urine microscopy: re d cells Dr. Stephie Velarde MD Work Phone: Start: 03-18-2025 Urnls dip stick/tabl et reagent auto microscopy Dr. Stephie Velarde MD Work Phone: Start: 03-17-2025 Blood count smear mc rscp w/mnl difrntl wbc count Dr. Stephie Velarde MD Work Phone: Start: 03-17-[address] Stephie Velarde MD Work Phone: Start: 03-17-2025 Mean corpuscular hemoglobin concentration determination Dr. Stephie Velarde MD Work Phone: Start: 03-17-2025 Nucleated red blood cell count procedure Dr. Stephie Velarde MD Work Phone: Start: 03-17-2025 Platelet mean volume determination Dr. Stephie Velarde MD Work Phone: Start: 03-03-[address] Stephie Velarde MD Work Phone: Start: 03-03-[address] Stephie Velarde MD Work Phone: Start: 03-03-[address] e fraction Dr. Stephie Velarde MD Work Phone: Start: 03-03-[address] Stephie Velarde MD Work Phone: Start: 03-03-2025 Total iron binding capacity measurement Dr. Stephie Velarde MD Work Phone: Start: 03-03-2025 End: 03-03-2025 X-ray of knee, four or more views Dr[address] Stephie Velarde MD Work Phone: Start: 01-15-2025 Follow-up visit Follow-up JUAN JAQUEZ Start: 01-08-2025 MRI of brain with contrast Dr. Stephie Velarde MD Work Phone: Start: 12-31-2024 Ct abdomen & pelvis w/o contrast material Eryn Lutz PA-C Work Phone: Start: 12-25-[address] Stephie Velarde MD Work Phone: Start: 12-25-2024 End: 12-25-2024 Blood count smear mcrscp w/mnl difrntl wbc count Dr. Stephie Velarde MD Work Phone: Start: 12-25-[address] Stephie Velarde MD Work Phone: Start: 12-25-2024 Lymphocyte percent differential count Dr. Stephie Velarde MD Work Phone: Start: 12-25-2024 Mean corpuscular hemoglobin concentration determination Dr. Stephie Velarde MD Work Phone: Start: 12-25-2024 Nucleated red blood cell count procedure Dr. Stephie Velarde MD Work Phone: Start: 12-25-2024 Platelet mean volume determination Dr. Stehpie Velarde MD Work Phone: Start: 09-30-2024 Blood count smear mc rscp w/mnl difrntl wbc count Dr. Stephie Velarde MD Work Phone: Start: 09-30-[address] Stephie Velarde MD Work Phone: Start: 09-30-2024 Mean corpuscular hemoglobin concentration determination Dr. Stephie Velarde MD Work Phone: Start: 09-30-2024 Nucleated red blood cell count procedure Dr. Stephie Velarde MD Work Phone: Start: 09-30-2024 Platelet mean volume determination Dr. Stephie Velarde MD Work Phone: Start: 09-28-2024 Serum inorganic phos phate measurement Dr. Stephie Velarde MD Work Phone: Start: 09-27-2024 Dr. Travis Velarde MD Work Phone: Start: 09-26-2024 Complete ultrasound of kidneys and bladder Dr. Stephie Velarde MD Work Phone: Start: 09-26-2024 Urine microscopy: re d cells Dr. Stephie Velarde MD Work Phone: Start: 09-26-2024 Urnls dip stick/tabl et reagent auto microscopy Dr. Stephie Velarde MD Work Phone: Start: 09-26-2024 Plain chest X-ray Dr. Tiburcio Velarde MD Work Phone: Start: 09-10-2024 Albumin/Globulin ratio Dr. Stephie Velarde MD Work Phone: Start: 09-10-[address] Stephie Velarde MD Work Phone: Start: 09-10-[address] M [address] Stephie Velarde MD Work Phone: Start: 09-10-[address] Stephie Velarde MD Work Phone: Start: 09-10-2024 Measurement of renal function Dr. Stephie Velarde MD Work Phone: Comment on above: GFR Calc Start: 09-10-2024 Urine lambda light c yarelis measurement Dr. Stephie Velarde MD Work Phone: Start: 09-03-2024 Anion gap measurement Gary Velarde MD Work Phone: Start: 09-03-2024 BUN/Creatinine ratio Dr Cristhian Velarde MD Work Phone: Start: 09-03-2024 Measurement of renal function Dr. Stephie Velarde MD Work Phone: Start: 06-12-[address] Stephie Velarde MD Work Phone: Start: 06-12-2024 Total iron binding capacity measurement Dr. Stephie Velarde MD Work Phone: Start: 06-12-[address] Stephie Velarde MD Work Phone: Start: 06-12-[address] Cristhian Velarde MD Work Phone: Start: 12-26-2023 End: 12-26-2023 Screening digital breast tomosynthesis bi [facility] Provider Start: 07-09-2023 Measurement of occul t blood in stool specimen using immunoassay Dr. Stephie Velarde Work Phone: Start: 11-03-2022 MRI of brain with contrast Dr. Stephie Velarde Work Phone: Start: 06-05-2022 DEMARCUS SCREENING W BUDDY Re nee [place] RENDERING EQUIPMENT TENDER.DISTRIBUTION CENTER ASSISTANT Work Phone: Start: 06-05-2022 Mammography Mammograph y Coordinator Start: 02-16-[address]21 [address] g test Dr. Stephie Velarde MD Work Phone: Start: 02-16-2021 Bacteria identified in Blood by Culture Dr. Stephie Velarde Work Phone: Start: 02-16-2021 Bacteria identified in Urine by Culture Dr. Stephie Velarde MD Work Phone: Start: 02-16-[address] Jose Velarde Work Phone: Start: 02-16-2021 Dr. Travis Velarde MD Work Phone: Start: 01-26-2021 Allergen spec ige cr ude allergen extract each Dr. Stephie Velarde MD Work Phone: Start: 01-26-2021 [address]ichomonas [address] g test Dr. Stephie Velarde MD Work Phone: Start: 01-13-2021 Measurement of occul t blood in stool specimen using immunoassay Dr. Stephie Velarde Work Phone: Start: 01-06-2021 Mammography Lynnette Guevara melvin RENDERING EQUIPMENT TENDER.DISTRIBUTION CENTER ASSISTANT Work Phone: Start: 09-11-2020 Blood count complete automated Yolis Sandoval Work Phone: Start: 09-10-2020 Blood typing serolog ic abo Amarilis L Esquivel Work Phone: Start: 09-09-2020 Basic metabolic pane l calcium total Amarilis L Esquivel Work Phone: Start: 09-09-2020 Blood count complete automated Amarilis L Esquivel Work Phone: Start: 09-09-2020 Ecg routine ecg w/le ast 12 lds w/i&r Amarilis L Esquivel Work Phone: Start: 05-04-2020 PET/CT Tumor Base -T high Init Dr. Stephie Velarde Work Phone: Start: 05-04-2020 Positron emission tomography with computed tomography Dr. Stephie Velarde MD Work Phone: Start: 05-04-2020 Dr. Travis Velarde MD Work Phone: Start: 01-15-2018 Lipid 1996 panel - S jessica or Plasma Darlene Forde RENDERING EQUIPMENT TENDER.DISTRIBUTION CENTER ASSISTANT Work Phone: Start: 08-29-2017 Adult depression screening assessment Lynnette Beck RENDERING EQUIPMENT TENDER.DISTRIBUTION CENTER ASSISTANT Work Phone: Start: 05-13-2012 Colonoscopy Lynnette charles RENDERING EQUIPMENT TENDER.DISTRIBUTION CENTER ASSISTANT Work Phone: Bacteria identified in Blood by Culture Dr. Stephie Velarde Work Phone: H/O: tubal ligation History of t ubal ligation Dr. Stephie Velarde Work Phone: Urine culture Dr. Stephie Velarde Work Phone: Plan of Treatment Date Care Activity Detail Author Start: 05-06-2025 [place] [facility] Start: 05-06-2025 Urinalysis complete panel - Urine [facility] Start: 05-06-2025 Vital signs measurements [facility] Start: 04-29-2025 Vital signs measurements [facility] Start: 04-29-2025 [facility] Start: 04-22-2025 Vital signs measurements [facility] Start: 04-15-2025 [facility] Start: 04-15-2025 Vital signs measurements [facility] Start: 04-08-2025 Urinalysis complete panel - Urine [facility] Start: 04-08-2025 Vital signs measurements [facility] Start: 04-01-2025 [facility] Start: 04-01-2025 Vital signs measurements [facility] Start: 03-30-2025 Influenza vaccination [facility] Start: 03-25-2025 [facility] Start: 03-25-2025 Vital signs measurements [facility] Start: 03-18-2025 Vital signs measurements [facility] Start: 03-18-2025 [facility] Start: 02-09-2025 End: 02-09-2025 Patient encounter procedure 02/09/2025 8:30 AM EDT Appointment [facility] [address] [place] [phone] Aravind Carey MD [address] [facility] [address] [place] [address] [facility] Start: 02-06-2025 End: 02-06-2025 Patient encounter procedure 02/06/2025 2:00 PM EDT Appointment [facility] [address] [place] [phone] Aravind Carey MD [address] [facility] [address] [place] [address] [facility] Start: 01-23-2025 End: 01-23-2026 PET+CT Bone from skull base to mid-thigh W [id number] IV PET/CT skull base to mid thigh Imaging Routine Abnormal CT of the abdomen Malignant neoplasm of both ovaries (HCC) Expected: 01/23/2025, Expires: 01/23/2026 [facility] Work Phone: Comment on above: Expected: 01/23/2025, Expires: Start: 01-23-2025 End: 01-23-2025 Patient encounter procedure 01/23/2025 12:30 PM EDT Office Visit [facility] Gynecologic Oncology [place] [address] [place] [phone] Aravind Carey MD [address] [facility] [address] [place] [address] [facility] - [place] Start: 01-15-2025 End: 01-15-2025 Patient encounter procedure 01/15/2025 10:30 AM EDT Office Visit [facility]oscopic [facility] [place] [address] [place] [phone] Juan Brice MD [address] [place] [address] [facility] [place] Start: 01-13-2025 End: 01-13-2025 Patient encounter procedure 01/13/2025 1:30 PM EDT Office Visit [facility] [place] [address] [place] [phone] Juan Brice MD [address] [facility] [address] [place] [address] [facility] [place] Start: 12-29-2024 End: 12-29-2024 Patient encounter procedure 12/29/2024 10:30 AM EDT Appointment [facility] [address] [place] [phone] Eduin Blackman MD [address] [place] [address] [facility] Start: 12-25-2024 Cobalamin (Vitamin B12) [Mass/volume] in Serum or Plasma [facility] Start: 12-25-2024 Ferritin [Mass/volume] in Serum or Plasma [facility] Start: 12-25-2024 Lactate dehydrogenase measurement [facility] Start: 12-25-2024 Screening for malignant neoplasm of breast [facility] Start: 12-25-2024 [facility] Start: 12-25-2024 Cancer Ag 125 [Units/volume] in Serum or Plasma [facility] Start: 12-23-2024 End: 12-23-2025 CT Abdomen and Pelvis WO contrast CT abdomen pelvis wo IV contrast Imaging Routine Abdominal wall bulge History of laparotomy History of ovarian cancer Expected: 12/23/2024, Expires: 12/23/2025 [facility] Work Phone: Comment on above: Expected: 12/23/2024, Expires: Start: 12-23-2024 End: 12-23-2024 Patient encounter procedure 12/23/2024 11:45 AM EDT Office Visit [facility]oscopic [facility] [place] [address] [facility] [address] [place] [phone] Juan Brice MD [address] [place] [address] [address] [place] [address] [facility] [place] Start: 12-19-2024 End: 12-19-2024 Patient encounter procedure 12/19/2024 3:15 PM EDT Appointment [facility] Imaging [address] [facility] [address] [place] [address] Eduin Blackman MD [facility] [place] [address] [facility] Start: 12-15-2024 End: 12-15-2024 Patient encounter procedure 12/15/2024 9:30 AM EDT Appointment [facility] [address] [place] [phone] Eduin Blackman MD [facility] [place], [place] [id number] [facility] Start: 11-20-2024 End: 11-20-2025 MR Cervical spine WO contrast MR cervical spine wo contrast Imaging Routine Weakness Expected: 11/20/2024, Expires: 11/20/2025 [facility] Work Phone: Comment on above: Expected: 11/20/2024, Expires: Start: 11-20-2024 End: 11-20-2025 Nerve conduction test with EMG Nerve conduction test with [facility] Neurology Routine Weakness Expected: 11/20/2024 (Approximate), Expires: 11/20/2025 [facility] Comment on above: Expected: 11/20/2024 (Approximate), Expi res: 11/20/2025 Start: 11-20-2024 End: 11-20-2024 Patient encounter procedure 11/20/2024 9:30 AM EDT Office Visit [place] [id number] [place] [phone] Eduin Blackman MD [address] [place] [id number] [facility] Start: 09-30-2024 Patient discharge [facility] Start: 09-29-2024 [facility] Start: 09-29-2024 Removal of urinary catheter [facility] Start: 09-26-2024 Following clinical pathway protocol [facility] Start: 09-26-2024 Assessment of risk of venous thromboembolism [facility] Start: 09-26-2024 Insertion of catheter into peripheral vein [facility] Start: 09-26-2024 Measuring intake and output [facility] Start: 09-26-2024 Providing care according to standard [facility] Start: 09-26-2024 Provision of activity privileges [facility] Start: 09-26-2024 Referral to occupational therapist [facility] Start: 09-26-2024 Referral to service [facility] Start: 09-26-2024 [facility] Start: 09-26-2024 Admission procedure [facility] Start: 09-26-2024 Inhalation therapy procedure [facility] Start: 07-30-2024 Medicare Advantage Annual Wellness Visit Medicare Advantage Annual Wellness Visit [facility] Start: 03-30-2024 COVID-19 Vaccine ( season) COVID-19 Vaccine ( season) [facility] Start: 03-30-2024 COVID-19 Vaccine ( season) COVID-19 Vaccine () [facility] Start: 03-30-2024 Influenza vaccination Influenza Vaccine (Season Ended) [facility] Start: 09-24-2023 Diabetes Screening Diabetes Screening [facility] Start: 07-30-2023 Advance Directive Discussion Advance Directive Discussion [facility] Start: 07-30-2023 Behavioral Health Screening Behavioral Health Screening [facility] Start: 06-05-2023 Mammography [facility] Start: 06-05-2023 Screening for malignant neoplasm of breast Mammogram Screening [facility] Start: 03-30-2023 Covid-19 Vaccine ( season) Covid-19 Vaccine () [facility] Start: 03-30-2023 Influenza [facility] Start: 01-15-2023 Lipid 1996 panel - Serum or Plasma Lipid Screening [facility] Start: 01-15-2023 Lipid panel Lipid Screening [facility] Start: 01-15-2023 LIPID SCREEN LIPID SCREEN [facility] Start: 11-08-2022 Patient referral [facility] Work Phone: Start: 11-03-2022 Venous catheter care management [facility] Start: 11-01-2022 BP CONTROLLED (<130/80) BP CONTROLLED (<130/80) [facility] Start: 08-31-2022 Cancer Ag 125 [Units/volume] in Serum or Plasma [facility] Start: 08-31-2022 Immunoglobulin measurement [facility] Start: 08-31-2022 Serum immunofixation [facility] Start: 07-30-2022 Advance Directive Discussion Advance Directive Discussion [facility] Start: 07-30-2022 Depression Assessment Depression Assessment [facility] Start: 05-13-2022 Colonoscopy COLONOSCOPY [facility] Start: 05-13-2022 COLORECTAL CANCER SCREENING COLORECTAL CANCER SCREENING [facility] Start: 05-13-2022 Screening for malignant neoplasm of colon [facility] Start: 03-30-2022 Influenza vaccination [facility] Start: 01-06-2022 Mammography MAMMOGRAM [facility] Start: 09-24-2021 Creatinine measurement Creatinine Level [facility] Start: 09-24-2021 Diabetes: Estimated Glomerular Filtration Rate for Kidney Health Diabetes: Estimated Glomerular Filtration Rate for Kidney Health [facility] Start: 09-24-2021 Potassium measurement Potassium Level [facility] Start: 09-09-2021 Creatinine measurement Creatinine monitoring [facility] Work Phone: Start: 09-09-2021 Potassium monitoring Potassium monitoring [facility] Work Phone: Start: 07-30-2021 ADVANCE DIRECTIVE DISCUSSION ADVANCE DIRECTIVE DISCUSSION [facility] Start: 07-30-2021 DEPRESSION ASSESSMENT DEPRESSION ASSESSMENT [facility] Start: 03-10-2021 COVID-19 VACCINE (3 - Booster for Moderna series) COVID-19 VACCINE (3 - Booster for Moderna series) [facility] Start: 02-10-2021 COVID-19 VACCINE (3 - Moderna risk 4-dose series) COVID-19 VACCINE (3 - Moderna risk 4-dose series) [facility] Start: 02-03-2021 Administration of blood product [facility] Start: 02-03-2021 [facility] Start: 01-15-2021 DIABETES SCREEN DIABETES SCREEN [facility] Start: 01-15-2021 Diabetes Screening Diabetes Screening [facility] Start: 12-19-2020 BONE DENSITY BONE DENSITY [facility] Start: 12-19-2020 Bone Density Screening Bone Density Screening [facility] Start: 12-19-2020 Pneumococcal Vaccine: 65+ (2 - PPSV23 or PCV20) Pneumococcal Vaccine: 65+ (2 - PPSV23 or PCV20) [facility] Start: 12-19-2020 Pneumococcal Vaccine: 65+ (3 - PPSV23 or PCV20) Pneumococcal Vaccine: 65+ (3 - PPSV23 or PCV20) [facility] Start: 12-19-2020 Pneumococcal Vaccine: 65+ (3 of 3 - PPSV23 or PCV20) Pneumococcal Vaccine: 65+ (3 of 3 - PPSV23 or PCV20) [facility] Start: 12-19-2020 PNEUMOCOCCAL: 65+ (2 - PPSV23 if available, else PCV20) PNEUMOCOCCAL: 65+ (2 - PPSV23 if available, else PCV20) [facility] Start: 12-19-2020 PNEUMOVAX AGE 65 AND OVER WITH 5YR LOOKBACK (#1) PNEUMOVAX AGE 65 AND OVER WITH 5YR LOOKBACK (#1) [facility] Start: 12-19-2020 Screening for osteoporosis Bone Density Screening [facility] Start: 10-24-2020 Venous catheter care management [facility] Start: 09-28-2020 End: 09-28-2020 Office Visit 09/28/2020 Office Visit Gynecologic Oncology Shayna Celis PA [address] [facility] [address] [place] [address] [phone] [facility]ER[facility] ECONOMIST Oncology Start: 09-10-2020 Hospital Encounter 09/10/2020 Hospital Encounter IP Unit Aravind Carey MD [address] [facility] [place], [place] [id number] [facility] Start: 08-04-2020 Administration of blood product [facility] Start: 08-04-2020 [facility] Start: 06-14-2020 Following clinical pathway protocol [facility] Start: 05-10-2020 Venous catheter care management [facility] Start: 03-30-2020 Influenza vaccination Flu vaccine (#1) [facility] Work Phone: Start: 11-11-2019 Pneumococcal Vaccine: 50+ Years (3 of 3 - PCV20 or PCV21) Pneumococcal Vaccine: 50+ Years (3 of 3 - PCV20 or PCV21) [facility] Start: 02-05-2019 ANNUAL PCP TEAM CHRONIC DISEASE VISIT ANNUAL PCP TEAM CHRONIC DISEASE VISIT [facility] Start: 08-29-2018 Adult depression screening assessment DEPRESSION SCREENING [facility] Start: 2015 RSV Immunization for Adults (1 - Risk 60-74 years 1-dose series) RSV Immunization for Adults (1 - Risk 60-74 years 1-dose series) [facility] Start: 2015 RSV Vaccine (1 - 1-dose 60+ series) RSV Vaccine (1 - 1-dose 60+ series) [facility] Start: 11-10-2014 Pneumococcal 0-64 years Vaccine (2 of 3 - PPSV23) Pneumococcal 0-64 years Vaccine (2 of 3 - PPSV23) [facility] Work Phone: Start: 12-19-2005 Screening for malignant neoplasm of colon Colon cancer screen colonoscopy [facility] Work Phone: Start: 12-19-2005 Shingles Vaccine (1 of 2) Shingles Vaccine (1 of 2) [facility] Work Phone: Start: 12-19-2005 SHINGRIX VACCINE (1 of 2) SHINGRIX VACCINE (1 of 2) [facility] Start: 12-19-2005 Zoster Vaccines (1 of 2) Zoster Vaccines (1 of 2) [facility] Start: 12-19-2000 COLOGUARD (FIT-DNA) COLOGUARD (FIT-DNA) [facility] Start: 12-19-[address] COLONOGRAPHY [facility] Start: 12-19-2000 FECAL OCCULT BLOOD FECAL OCCULT BLOOD [facility] Start: 12-19-2000 Screening for malignant neoplasm of colon [facility] Start: 12-19-2000 SIGMOIDOSCOPY SIGMOIDOSCOPY [facility] Start: 1995 Diabetes screen Diabetes screen [facility] Work Phone: Start: 1995 Screening for malignant neoplasm of breast Breast cancer screen [facility] Work Phone: Start: 12-19-1976 Screening for malignant neoplasm of cervix Cervical cancer screen [facility] Work Phone: Start: 12-19-1974 DTaP/Tdap/Td vaccine (1 - Tdap) DTaP/Tdap/Td vaccine (1 - Tdap) [facility] Work Phone: Start: 12-19-1974 DTaP/Tdap/Td Vaccines (1 - Tdap) DTaP/Tdap/Td Vaccines (1 - Tdap) [facility] Start: 12-19-1974 Urine microalbumin profile [facility] Start: 12-19-1973 Annual PCP Team Chronic Disease Visit Annual PCP Team Chronic Disease Visit [facility] Start: 12-19-1973 BP Controlled (<130/80) BP Controlled (<130/80) [facility] Start: 12-19-1973 Diabetes mellitus screening Diabetes Screening [facility] Start: 12-19-1973 Diabetes: Urine Albumin-Creatinine Ratio for Kidney Health Diabetes: Urine Albumin-Creatinine Ratio for Kidney Health [facility] Start: 12-19-1973 Hepatitis C screening Hepatitis C Screening [facility] Start: 12-19-1973 HIV SCREENING HIV SCREENING [facility] Start: 12-19-1970 HIV screening HIV screen [facility] Work Phone: Start: 1967 Depression Screening Depression Screening [facility] Start: 12-19-1965 Diabetic foot examination Diabetes: Foot Exam [facility] Start: 12-19-1965 Glaucoma screening Diabetes: Retinopathy Screening [facility] Start: 12-19-1965 Lipid panel Lipid screen [facility] Work Phone: Start: 12-19-1965 Preventive dental service Diabetes: Dental Exam [facility] Start: 1955 Echocardiography Echocardiogram [facility] Start: 1955 Hemoglobin A1c measurement Diabetes: Hemoglobin A1C [facility] Start: 1955 Hepatitis C screening Hepatitis C screen [facility] Work Phone: Start: 1955 Lipid panel Lipid Panel [facility] Start: 1955 Screening for malignant neoplasm of colon [facility] Start: 1955 Screening for osteoporosis Bone Density Scan [facility] Alanine aminotransfe rase [Enzymatic activity/volume] in Serum or Plasma [facility] Alanine aminotransfe rase [Enzymatic activity/volume] in Serum or Plasma [facility] Albumin [Mass/volume ] in Serum or Plasma [facility] Albumin [Mass/volume ] in Serum or Plasma [facility] Albumin [Moles/volum e] in Serum or Plasma [facility] Albumin/Globulin ratio [facility] Alkaline phosphatase [Enzymatic activity/volume] in Serum or Plasma [facility] Alkaline phosphatase [Enzymatic activity/volume] in Serum or Plasma [facility] Anion gap in Serum o r Plasma [facility] Anion gap in Serum o r Plasma [facility] Basic metabolic 2008 panel with ionized calcium - Serum or Plasma [facility] Bilirubin measuremen t, urine [facility] Bilirubin, total measurement [facility] Bilirubin, total measurement [facility] Blood chemistry [facility] BUN/Creatinine ratio [facility] BUN/Creatinine ratio [facility] Calcium [Mass/volume ] in Serum or Plasma [facility] Calcium [Mass/volume ] in Serum or Plasma [facility] Cancer Ag 125 [Units/volume] in Serum or Plasma [facility] Cancer Ag 125 [Units/volume] in Serum or Plasma [facility] Cancer Ag 125 [Units/volume] in Serum or Plasma [facility] Carbon dioxide, tota l [Moles/volume] in Central venous blood [facility] Carbon dioxide, tota l [Moles/volume] in Central venous blood [facility] CBC W Auto Different ial panel - Blood [facility] CBC W Auto Different ial panel - Blood [facility] CBC W Auto Different ial panel - Blood [facility] CBC W Auto Different ial panel - Blood [facility] CBC W Auto Different ial panel - Blood [facility] CBC W Auto Different ial panel - Blood [facility] Comprehensive metabo lic 1999 panel - Serum or Plasma [facility] Comprehensive metabo lic 1999 panel - Serum or Plasma [facility] Creatinine [Mass/vol ume] in Serum or Plasma [facility] Creatinine [Mass/vol ume] in Serum or Plasma [facility] EKG 12 Lead EKG 12 Lead ECG Routine 09/09/2020 12:50 PM EST [facility] Work Phone: Electrophoresis: [id number] [facility] Electrophoresis: [id number] globulin [facility] Erythrocyte mean corpuscular volume determination [facility] Erythrocyte mean corpuscular volume determination [facility] Ferritin [Mass/volum e] in Serum or Plasma [facility] Folate [Moles/volume ] in Serum or Plasma [facility] Globulin measurement [facility] Glucose [Mass/volume ] in Serum or Plasma [facility] Glucose [Mass/volume ] in Serum or Plasma [facility] Hematocrit [Volume Fraction] of Blood [facility] Hematocrit [Volume Fraction] of Blood [facility] Hemoglobin [Mass/vol ume] in Blood [facility] Hemoglobin [Mass/vol ume] in Blood [facility] Hemoglobin [Presence ] in Urine [facility] Home BIPAP or CPAP Home BIPAP or CPAP Respiratory Care Routine Daily until discontinued starting 09/10/2020 [facility] Work Phone: Comment on above: Daily until discontinued starting 2020 IgA [Mass/volume] in Serum or Plasma [facility] IgG [Mass/volume] in Serum or Plasma [facility] IgM [Mass/volume] in Serum or Plasma [facility] Iron and Iron bindin g capacity panel - Serum or Plasma [facility] Lactate dehydrogenas e measurement [facility] Lactate dehydrogenas e measurement [facility] Lactate dehydrogenas e measurement [facility] Lactate dehydrogenas e measurement [facility] Leukocytes [#/volume ] in Blood [facility] Leukocytes [#/volume ] in Blood [facility] Magnesium measurement [facility] Magnesium measurement [facility] Magnesium measurement [facility] End: 12-01-2022 DEMARCUS SCREENING W BUDDY DEMARCUS SCREENING W BUDDY Radiology Routine Encounter for screening mammogram for breast cancer 1 Occurrences starting 11/01/2021 until 12/01/2022 [facility] Work Phone: Comment on above: 1 Occurrences starting 11/01/2021 until 12/01/2022 Mean corpuscular hemoglobin concentration determination [facility] Mean corpuscular hemoglobin concentration determination [facility] Mean corpuscular hemoglobin determination [facility] Mean corpuscular hemoglobin determination [facility] Measurement of keton es in urine using dipstick [facility] Measurement of renal function [facility] Measurement of renal function [facility] Microscopic observat ion [Identifier] in Vaginal fluid by Gram stain BACT/VLAD VAG GRAM STAIN Microbiology Routine Vaginal odor 11/01/2021 10:56 AM EDT [facility] Work Phone: Microscopic urinalysis [facility] MR Brain WO and W contrast IV [facility] Nebulizer therapy HHN Treatment Respiratory Care Routine Every 6hr As Needed until discontinued starting 09/10/2020 [employer] Work Phone: Comment on above: Every 6hr As Needed until discontinued s tarting 09/10/2020 End: 12-29-2024 Nerve conduction test with EMG [employer] Work Phone: Comment on above: Once for 1 Occurrences starting 12/30/19 until 12/29/2024 Neutrophil count [facility] Neutrophil count [facility] Neutrophil percent differential count [facility] Neutrophil percent differential count [facility] Oxygen therapy [[facility] Data Set] Initiate Oxygen Therapy Protocol Respiratory Care Routine Daily until discontinued starting 09/10/2020 [employer] Work Phone: Comment on above: Daily until discontinued starting 2020 Patient referral [facility] Work Phone: End: 02-09-2025 PET+CT Bone from skull base to mid-thigh W 18F-NaF IV [employer] Work Phone: Comment on above: Once for 1 Occurrences starting 02/10/20 until 02/09/2025 pH of Urine [facility] Platelets [#/volume] in Blood [facility] Platelets [#/volume] in Blood [facility] Potassium measurement [facility] Potassium measurement [facility] Protein [Mass/time] in 24 hour Urine [facility] Protein electrophore sis panel - Serum or Plasma [facility] Red blood cell count [facility] Red blood cell count [facility] Red cell distributio n width determination [facility] Red cell distributio n width determination [facility] Serum chloride measurement [facility] Serum chloride measurement [facility] Serum protein electrophoresis [facility] Sodium measurement [facility] Sodium measurement [facility] Specific gravity of Urine [facility] Spirometry panel Incentive zofia metry Respiratory Care Routine Every 2hr while awake until discontinued starting 09/10/2020 [facility] Work Phone: Comment on above: Every 2hr while awake until discontinued starting 09/10/2020 Total protein measurement [facility] Total protein measurement [facility] Urea nitrogen [Mass/volume] in Serum or Plasma [facility] Urea nitrogen [Mass/volume] in Serum or Plasma [facility] Urinalysis complete panel - Urine [facility] Urinalysis complete panel - Urine [facility] Urine blood test [facility] Urine dipstick for glucose [facility] Urine dipstick for leukocyte esterase [facility] Urine dipstick for nitrite [facility] Urine dipstick for protein [facility] Urine examination [facility] Urine microscopy: epithelial cells [facility] Urine Microscopy: wh ite cells [facility] Urobilinogen [Presen ce] in Urine [facility] XR Knee 3 Views [facility] XR Spine Lumbar and Sacrum GE 4 Views [facility] Immunizations Immunization Date Immunization Notes Care Provider [facility] 06-12-2024 Seasonal trivalent influenza vaccine, adjuvanted, preservative free Dr. Stephie Velarde MD Work Phone: [facility] 06-12-2024 influenza virus vaccine, unspecified formulation Aravind Carey MD Work Phone: [facility] 01-13-2021 Covid (Moderna) Dr. Dennys Velarde MD Work Phone: [facility] 12-13-2020 Covid (Moderna) Dr. Dennys Velarde MD Work Phone: [facility] 03-30-2020 influenza virus vaccine, unspecified formulation Bigg Pan MD Work Phone: [facility] 07-02-2017 influenza, injectabl e, quadrivalent, contains preservative Lynnette Ebony HARONKAYLA Work Phone: [facility] Work Phone: 07-02-2017 influenza, injectabl e, quadrivalent, preservative free Dr. Stephie Velarde MD Work Phone: [facility] 07-02-2017 influenza virus vaccine, unspecified formulation Darlene Forde RENDERING EQUIPMENT TENDER.DISTRIBUTION CENTER ASSISTANT Work Phone: [facility] 06-08-2016 influenza, injectabl e, quadrivalent, contains preservative Lynnette [place] RENDERING EQUIPMENT TENDER.DISTRIBUTION CENTER ASSISTANT Work Phone: [facility] 05-05-2015 influenza, injectabl e, quadrivalent, contains preservative Lynnette [place] RENDERING EQUIPMENT TENDER.DISTRIBUTION CENTER ASSISTANT Work Phone: [facility] 05-05-2015 influenza, injectabl e, quadrivalent, preservative free Dr. Stephie Velarde MD Work Phone: [facility] 09-15-2014 pneumococcal conjuga te vaccine, 13 valent Lynnette [place] RENDERING EQUIPMENT TENDER.DISTRIBUTION CENTER ASSISTANT Work Phone: [facility] Payers Date Payer Category Payer Medicaid [facility] [id number] 2024 Self-pay [id number] 2023 Medicare HMO ANTHEM DUAL ADVA NTAGE [id number] 2022 Unknown [id number] [facility] MEDICAID [id number] 2021-[facility] [phone] [address] [place] [address] Medicaid [id number]. [id number] 2021 Medicaid [id number]. [id number] 2021 Medicare [id number]. 1.13.159.2. [id number] 2020 Unknown [id number] 2019 Unknown [id number]. [id number] Medicare MEDICARE PART A B [id number] Private Health Insurance 101 [id number] Unknown [id number] Unknown [id number] 2.16.840.1.070764.3.579.2. 462 Unknown [id number] 2.16.840.1.315546.3.579.2. 462 Unknown [id number] 2.16.840.1.192238.3.579.2. 462 Unknown [id number] 2.16.840.1.156893.3.579.2. 462 Unknown [id number] 2.16.840.1.554941.3.579.2. 462 Unknown [id number] 2.16.840.1.644778.3.579.2. 462 Unknown [id number] 2.16.840.1.068168.3.579.2. 462 Unknown [id number] 2.16.840.1.041560.3.579.2. 462 Unknown [id number] 2.16.840.1.325946.3.579.2. 462 Unknown [id number] 2.16.840.1.866385.3.579.2. 462 Unknown [id number] 2.840.1.543773.3.579.2. 462 Unknown [id number] 2.840.1.938936.3.579.2. 462 Unknown [id number] 2.840.1.813222.3.579.2. 462 Unknown [id number] 2.840.1.883958.3.579.2. 462 Unknown [id number] 2.16840.1.387689.3.579.2. 462 Unknown [id number] 2.840.1.684513.3.579.2. 462 Unknown [id number] 2.16.840.1.860681.3.579.2. 462 Unknown [id number] 2.16.840.1.780297.3.579.2. 462 Unknown [id number] 2.16.840.1.332780.3.579.2. 462 Unknown [id number] 2.16840.1.129455.3.579.2. 462 Unknown [id number] 2.16840.1.191368.3.579.2. 462 Unknown [id number] 2.16.840.1.927050.3.579.2. 462 Unknown [id number] 2.16.840.1.916136.3.579.2. 462 Unknown [id number] 2.16.840.1.900209.3.579.2. 462 Unknown [id number] 2.16.840.1.852642.3.579.2. 462 Unknown [id number] 2.16.840.1.507858.3.579.2. 462 Unknown [id number] 2.16.840.1.959482.3.579.2. 462 Unknown [id number] 2.16.840.1.192107.3.579.2. 462 Unknown [id number] 2.16.840.1.055069.3.579.2. 462 Unknown [id number] 2.16.840.1.364126.3.579.2. 462 Unknown [id number] 2.16.840.1.778853.3.579.2. 462 Social History Date Type Detail Facility Start: 09-09-2020 End: 02-18-2025 Tobacco smoking status NHIS Former smoker [facility] Start: 09-09-2020 End: 05-08-2023 Tobacco use and exposure Never used [employer] Work Phone: Start: 09-09-2020 End: 07-18-2022 Alcohol intake Current drinker of alcohol (finding) [employer] Work Phone: Start: 09-09-2020 Alcohol Comment rare [employer] Work Phone: Start: 1955 Sex Assigned At Not on file [employer] Work Phone: Start: 10-22-2021 End: 11-01-2021 Exposure to SARS-CoV-2 (event) Not sure [employer] Work Phone: History of tobacco use Cigarette Smoker [facility] Start: 05-01-2018 End: 01-15-2025 Cigarettes smoked current (pack per day) - Reported 0.5 [facility] Start: 11-01-2021 End: 05-08-2023 Alcohol intake Current non-drinker of alcohol (finding) [facility] History of tobacco use Current smoker [facility] Start: 08-09-2022 End: 01-04-2023 Tobacco smoking status NHIS Unknown if ever smoked [facility] Start: 11-16-2020 Non-smoker [facility] Start: 1955 Sex Assigned At Female W [facility] Start: 05-08-2023 End: 01-15-2025 Tobacco use panel [facility] National Score (1-10 0), lower number is lower risk 96 [facility] Start: 11-19-2024 End: 12-23-2024 Alcoholic beverage intake Ex-drinker (finding) [employer] Start: 02-27-2022 Sex Female (finding) [employer] [facility] [employer] Procedure Code Equipment Code Equipment Origin al Text Equipment Identifier Dates Insertion, vascular access port PORT,POWER 8FR FDA Start: 05-27-2020 Insertion, vascular access port PORT,POWER 8FR FDA Start: 06-03-2020 Insertion, vascular access port PORT,POWER 8FR FDA Start: 05-27-2020 Insertion, vascular access port PORT,POWER 8FR FDA Start: 06-03-2020 Insertion, vascular access port FDA Start: 05-27-2020 Insertion, vascular access port FDA Start: 06-03-2020 Insertion, vascular access port FDA Start: 05-27-2020 Insertion, vascular access port FDA Start: 06-03-2020 Insertion, vascular access port FDA Start: 05-27-2020 Insertion, vascular access port FDA Start: 06-03-2020 Insertion, vascular access port PORT,POWER 8FR FDA Start: 05-27-2020 Insertion, vascular access port PORT,POWER 8FR FDA Start: 06-03-2020 Insertion, vascular access port PORT,POWER 8FR FDA Start: 05-27-2020 Insertion, vascular access port PORT,POWER 8FR FDA Start: 06-03-2020 Insertion, vascular access port PORT,POWER 8FR FDA Start: 05-27-2020 Insertion, vascular access port PORT,POWER 8FR FDA Start: 06-03-2020 Insertion, vascular access port FDA Start: 05-27-2020 Insertion, vascular access port FDA Start: 06-03-2020 Insertion, vascular access port FDA Start: 05-27-2020 Insertion, vascular access port FDA Start: 06-03-2020 Insertion, vascular access port FDA Start: 05-27-2020 Insertion, vascular access port FDA Start: 06-03-2020 Insertion, vascular access port FDA Start: 05-27-2020 Insertion, vascular access port FDA Start: 06-03-2020 Insertion, vascular access port FDA Start: 05-27-2020 Insertion, vascular access port FDA Start: 06-03-2020 Insertion, vascular access port FDA Start: 05-27-2020 Insertion, vascular access port FDA Start: 06-03-2020 Insertion, vascular access port FDA Start: 05-27-2020 Insertion, vascular access port FDA Start: 06-03-2020 Insertion, vascular access port FDA Start: 05-27-2020 Insertion, vascular access port FDA Start: 06-03-2020 Goals Date Patient Goal Desired Activity /State Functional Status Date Assessment Result Facility 09-30-[address] [facility] Work Phone: Mental Status Date Assessment Result Facility 09-30-2024 Cognitive function Voice/Name [facility] Work Phone: 04-22-2024 Cognitive function Awake;Alert;A ppropriate;Fo llows Commands [facility] Work Phone: 04-15-2024 Cognitive function Voice/Name [facility] Work Phone: 03-15-2023 Cognitive function Voice/Name [facility] Work Phone: 02-03-2021 Cognitive function Voice/Name [facility] Work Phone: Clinical Notes 11-01-2021 to 03-25-2025 Note Date & Type Note Facility 03-25-2025 Progress note Note Date/Time March 25, 2025 10:09am [facility] [address] [place], [place] [address]ol[place] [address] OFFICE VISIT Date of Service: 03/25/25917 MR#: [id number] Acct: [id number] Name: BRITTA YOUNG Rep #: [id number] : 1955 From: David Corral MD Age/Sex: 69/F Location: [facility] Status: Signed HPI Subjective Date of Service 03/25/25 Chief Complaint F/u for ovarian cancer History of Present Illness 69 y.o.woman with a PMH for DM, obesity, asthma, stage III CKD and hypertension who experienced left groin swelling February 2020. 03/29/20: CT A/P revealed peritoneal masses, Left ovarian mass and enlarged groinnodes. 04/13/20: Ca125 was 441. 04/13/20: CT chest demonstrated 2 x 1.7 cm nodule in the right adrenal gland 04/13/20: CT guided bx of abdominal wall mass showed metastatic poorly differentiated non-small cell carcinoma, consistent with a ovarian primary. 04/23/20: Evaluated by marketing project lead/onc, Dr. Aravind Carey. Due to extensive adenopathy, recommended neoadjuvant chemotherapy with carboplatin/paclitaxel. Advised if able to obtain good response to treatment after cycle 4, consider fordebulking. 05/04/20: PET/CT demonstrated uptake in the 1) left and mid-lower pelvic mesentery, SUV 12, max diameter 5.8-cm x 12.4-cm, 2) Mid-lower abdominal retroperitoneum and mesentery, left hemipelvis and left inguinal regions, left upper abdomen, devi splenic in location, SUV 10.7, max diameter 7.2-cm, 3) Carinal-subcarinal posterior mediastinum, SUV 7.8, max diameter 2.14-cm, 4) left anterior neck-supraclavicular region SUV 10.3, max diameter 3.31 cm. 05/06/20: Tested positive for COVID19, thus intimation of first chemotherapy infusion was delayed although patient remained asymptomatic during the entire period of her isolation. 05/18/2020: Began systemic chemotherapy with Carboplatin and dose dense Taxol weekly 05/21/20: BRCA1 and BRCA2 Analysis, no clinically significant mutation identified 06/03/2020: Port placed under the care of Dr. Hardy. 06/17/20: CT soft tissue neck, chest, abdomen and pelvis showed small left supraclavicular lymph nodes, stable right adrenal nodule, slight progression in the left para-aortic mass, residual retroperitoneal and pelvic lymphadenopathy and slight increase in size of the anterior omental nodules. 07/06/2020:Experienced prerenal mild RUI secondary to dehydration (during cycle 3) as evidenced by BUN 55, creatinine 2.11 and subjective complaints of dizziness. Patient was supported with IV hydration. 07/20/2020 Started C4 and finished on 08/03/2020. CA125 on 07/20/2020 was 36.6 08/05/2020 CT n,c,a/p showed shows decrease in neck nodes, ovaries and stable abdominal nodes. 08/10/2020 CA125 was 25.6 09/10/20 Underwent total abdominal hysterectomy, bilat salpingo-oophorectomy and tumor debulking at [facility] under the care of Dr. Carey. 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 10/26/2020 Began adjuvant chemotherapy with carboplatin/paclitaxel, D8 was delayed because of diarrhea. 12/07/2020 Completed 2 cycles carboplatin/paclitaxel. 01/05/2021 Started Zejula 300mg daily, comes for follow up.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 8:43am Encounter for education acute A ugust 2024 8:43am Anemia chronic March 18, 025 8:43am Ovarian cancer chronic February 8:43am Chemotherapy management, encounter for acute March 25 8:15am Dehydration acute March 25, 2025 8:15am Diarrhea due to drug acute Augu st 2024 8:15am Encounter for education acute A ugust 2024 8:15am Hypomagnesemia acute February 8:15am Iron deficiency anemia acute Au [facility] 2024 8:15am Ovarian mass, left acute March 25, 2025 8:15am Edema of left lower extremity chroni c March 25, 2025 8:15am Mass of peritoneum chronic March 25, 2025 8:15am Ovarian cancer chronic February 8:15am Hypokalemia resolved March 25, 2025 8:15am Chemotherapy management, encounter for acute March 25 8:38am Ovarian cancer chronic February 8:38am [facility] Work Phone: 1(134) 965-682205-29-2025 Evaluation note* Diagnosis Onset Date Resolution Status Admit Date Difficulty walking acute December 252024 1:34pm Anemia chronic December 25, 2024 1:34pm Ovarian cancer chronic December 25, 2024 1:34pm Difficulty walking acute December 282024 3:17pm Ovarian cancer chronic January 13, 2025 3:17pm Difficulty walking acute March 03, 2025 1:11pm Ovarian cancer chronic February 1:11pm Bilateral leg weakness acute Au jairo 2024 2:00pm Bilateral lower extremity edema chronic March 16 2:00pm Hypertension chronic March 16, 2025 2:00pm Knee osteoarthritis chronic Augus t 2024 2:00pm Chemotherapy management, encounter for acute March 18 8:43am Encounter for education acute A ug2024 8:43am Anemia chronic March 18 8:43am Ovarian cancer chronic February 8:43am Chemotherapy management, encounter for acute March 25 8:38am Ovarian cancer chronic February 8:38am Chemotherapy management, encounter for acute April 08, 2025 8:15am Dehydration acute March 8:15am Diarrhea due to drug acute Mar 8:15am Encounter for education acute S eptember 2024 8:15am Hypomagnesemia acute April 08, 2025 8:15am Iron deficiency anemia acute Se ptember 2024 8:15am Ovarian mass, left acute 2024 8:15am Edema of left lower extremity chroni c April 08, 2025 8:15am Mass of peritoneum chronic 2024 8:15am Ovarian cancer chronic April 08, 2025 8:15am Hypokalemia resolved March 8:15am Chemotherapy management, encounter for acute April 08, 2025 8:20am Ovarian cancer chronic April 08, 2025 8:20am [facility] Work Phone: 1(641) 101-238505-29-2025 Evaluation note* Diagnosis Onset Date Resolution Status Admit Date Difficulty walking acute December 252024 1:34pm Anemia chronic December 25, 2024 1:34pm Ovarian cancer chronic December 25, 2024 1:34pm Difficulty walking acute December 282024 3:17pm Ovarian cancer chronic January 13, 2025 3:17pm Difficulty walking acute March 03, 2025 1:11pm Ovarian cancer chronic February 1:11pm Bilateral leg weakness acute Au jairo 2024 2:00pm Bilateral lower extremity edema chronic March 16 2:00pm Hypertension chronic March 16, 2025 2:00pm Knee osteoarthritis chronic Augus t 2024 2:00pm Chemotherapy management, encounter for acute March 18 8:43am Encounter for education acute A ugust 2024 8:43am Anemia chronic March 18, 8:43am Ovarian cancer chronic February 8:43am Chemotherapy management, encounter for acute March 25 8:38am Ovarian cancer chronic February 8:38am Chemotherapy management, encounter for acute April 08, 2025 8:20am Diarrhea due to drug acute Mar 8:20am Hypomagnesemia acute April 08, 2025 8:20am Anemia chronic March 8:20am Ovarian cancer chronic April 08, 2025 8:20am Chemotherapy management, encounter for acute April 15, 2025 7:30am Dehydration acute March 7:30am Diarrhea due to drug acute Mar 7:30am Encounter for education acute S eptember 2024 7:30am Hypomagnesemia acute April 15, 2025 7:30am Iron deficiency anemia acute Se ptember 2024 7:30am Ovarian mass, left acute 2024 7:30am Edema of left lower extremity chroni c April 15, 2025 7:30am Mass of peritoneum chronic 2024 7:30am Ovarian cancer chronic April 15, 2025 7:30am Hypokalemia resolved March 7:30am [facility] Work Phone: 1(757) 630-870105-29-2025 Evaluation note* Diagnosis Onset Date Resolution Status Admit Date Difficulty walking acute December 252024 1:34pm Anemia chronic December 25, 2024 1:34pm Ovarian cancer chronic December 25, 2024 1:34pm Difficulty walking acute December 282024 3:17pm Ovarian cancer chronic January 13, 2025 3:17pm Difficulty walking acute March 03, 2025 1:11pm Ovarian cancer chronic February 1:11pm Bilateral leg weakness acute Au jairo 2024 2:00pm Bilateral lower extremity edema chronic March 16 2:00pm Hypertension chronic March 16, 2025 2:00pm Knee osteoarthritis chronic Augus t 2024 2:00pm Chemotherapy management, encounter for acute March 18 8:43am Encounter for education acute A ugust 2024 8:43am Anemia chronic March 18, 8:43am Ovarian cancer chronic February 8:43am Chemotherapy management, encounter for acute March 25 8:38am Ovarian cancer chronic February 8:38am Chemotherapy management, encounter for acute April 08, 2025 8:20am Diarrhea due to drug acute Mar 8:20am Hypomagnesemia acute April 08, 2025 8:20am Anemia chronic March 8:20am Ovarian cancer chronic April 08, 2025 8:20am Chemotherapy management, encounter for acute April 15, 2025 7:30am Dehydration acute March 7:30am Diarrhea due to drug acute Mar 7:30am Encounter for education acute S eptember 2024 7:30am Hypomagnesemia acute April 15, 2025 7:30am Iron deficiency anemia acute Se ptember 2024 7:30am Ovarian mass, left acute 2024 7:30am Edema of left lower extremity chroni c April 15, 2025 7:30am Mass of peritoneum chronic 2024 7:30am Ovarian cancer chronic April 15, 2025 7:30am Hypokalemia resolved March 7:30am Chemotherapy management, encounter for acute April 15, 2025 7:37am Hypomagnesemia acute April 15, 2025 7:37am Anemia chronic March 7:37am Hypertension chronic April 152024 7:37am Ovarian cancer chronic April 15, 2025 7:37am Hypertension chronic April 162024 12:29pm [facility] Work Phone: 1(762) 763-161705-29-2025 Evaluation note* Diagnosis Onset Date Resolution Status Admit Date Chemotherapy management, encounter for acute December 25, 2024 1 :30pm Dehydration acute December 25 1:30pm Diarrhea due to drug acute December 25, 2024 1:30pm Encounter for education acute M ay 2024 1:30pm Hypomagnesemia acute December 25, 2024 1:30pm Iron deficiency anemia acute Ma y 2024 1:30pm Ovarian mass, left acute December 252024 1:30pm Edema of left lower extremity chroni c December 25, 2024 1:30pm Mass of peritoneum chronic December 252024 1:30pm Ovarian cancer chronic December 25, 2024 1:30pm Hypokalemia resolved December 25 1:30pm Difficulty walking acute December 252024 1:34pm Anemia chronic December 25, 2024 1:34pm Ovarian cancer chronic December 25, 2024 1:34pm Difficulty walking acute December 282024 3:17pm Ovarian cancer chronic January 13, 2025 3:17pm Difficulty walking acute March 03, 2025 1:11pm Ovarian cancer chronic February 1:11pm [facility] Work Phone: 1(380) 329-763605-27-2025 History of Present illness Narrative* Juan Brice MD - 12/23/2024 11:45 AM EDT Images from the original note were not included. [facility] Advanced Laparoscopic Surgery Patient Name: Britta Young Date: 12/23/24 HPI: Britta Young is a 69 y.o. female who presents with concern of periumbilical bulge. She states a few weeks ago she noticed a bulge just right of her umbilicus which is since softened. She had concern for hernia so was referred to us for surgical evaluation. At this time, she denies any pain, nausea, vomiting, changes in bowels and is not interested in intervention if it is not necessary. 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 PSH also significant for tubal ligation. Former smoker. Notes reviewed: - Cara Fernandes [facility], 11/17/24 Data reviewed: - CT abd/pel, 09/15/20: personally interpreted, pSBO, scattered air bubbles in retroperitoneal sot tissues of pelvis, small amount of perihepatic ascites, large well circumscribed rim calcified LUQ mass, multiple b/l renal cysts, cholelithiasis, small pericardial effusion, sm HH PMHx: Medical History[1] PSHx: Surgical History[2] PFMHx: Family History[3] ALL: Allergies[4] MEDS: Current Medications[5] SOCIAL Hx: Social History Socioeconomic History Marital status: Single Spouse name: Not on file Number of children: Not on file Years of education: Not on file Highest education level: Not on file Occupational History Not on file Tobacco Use Smoking status: Former Smokeless tobacco: Never Substance and Sexual Activity Alcohol use: Not Currently Drug use: Never Sexual activity: Not on file Other Topics Concern Not on file Social History Narrative Not on file Social Drivers of Health Financial Resource Strain: Not on file Food Insecurity: Not on file Transportation Needs: Not on file Physical Activity: Not on file Stress: Not on file Social Connections: Not on file Intimate Partner Violence: Not on file Housing Stability: Not on file ROS: General: negative for - chills, fatigue, fever or malaise Gastrointestinal: negative for - change in bowel habits, hemoptysis, hematemesis, hematochezia, dysphagia, nausea, vomiting, diarrhea, constipation, weight loss DIAGNOSTIC EVALUATION: as described above Physical Examination: BP (!) 185/99 (BP Location: Left arm, Patient Position: Sitting, BP Cuff Size: Adult) Pulse 70 Temp 36.3 C (97.3 F) (Temporal) Ht 5' 6 (1.676 m) Wt 264 lb 6.4 oz (120 kg) SpO2 98% BMI 42.68 kg/m She stands Height: 5' 6 (167.6 cm) tall with a weight of Weight: 264 lb 6.4 oz (120 kg), resultingin a BMI of Body mass index is 42.68 kg/m . General: The patient is awake, alert, and oriented, and is in no apparent distress; normal affect Respiratory: Normal effort, no gross abnormal breath sounds Abdomen: Appropriate girth, non-distended, well healed laparotomy scars, soft, no masses or hepatosplenomegaly Hernia: No obvious hernias on exam Extremities: Presents in wheelchair, no obvious deformities Skin: Warm, dry, intact; no obvious lesions or discoloration Assessment/Plan Britta was seen today for new patient. Diagnoses and all orders for this visit: Abdominal wall bulge (Primary) - CT abdomen pelvis wo IV contrast; Future History of laparotomy - CT abdomen pelvis wo IV contrast; Future History of ovarian cancer - CT abdomen pelvis wo IV contrast; Future Ms. Young is a 69-year-old female presenting for evaluation of periumbilical bulge with history oflaparotomy for ovarian cancer debulking in 2020. No obvious hernias or masses were palpable on exam. With her history of ovarian cancer with involvement at the umbilicus on path, as well as large laparotomy incision, we do recommend further evaluation with CT. Order placed. Will call with results. If benign, ok to hold off of surgery unless symptoms worsen. I personally performed the evaluation and management of Britta Young in the development of a treatment plan for this patient. I personally interviewed the patient and performed an individual physical examination. In addition, I discussed the patient's condition and treatment options with them. I have also reviewed and agree with the past medical, family and social history unless otherwise noted. All of the patient's questions were answered. I discussed/counseled the patient regarding the risks and benefits of surgery as well as the preoperative and postoperative care plan for this patient.The patient was seen and examined independently and relevant data reviewed by myself. A full chart review was performed. Patient Care Team: Katie Velarde MD as PCP - General se [1] Past Medical History: Diagnosis Date Asthma Cancer (CMS/HCC) (HCC) GERD (gastroesophageal reflux disease) History of blood transfusion Hyperlipidemia Hypertension Obesity Renal insufficiency Sleep apnea [2] Past Surgical History: Procedure Laterality Date COLONOSCOPY ENDOMETRIAL ABLATION 2003 OTHER SURGICAL HISTORY 09/17/2020 SMA aneurysm ligation, application of Prevena wound vac TONSILLECTOMY (HISTORICAL) TOTAL ABDOMINAL HYSTERECTOMY W/ BILATERAL SALPINGOOPHORECTOMY 09/10/2020 NUSRAT/BSO/omentectomy snd debulking TUBAL LIGATION 1994 [3] Family History Problem Relation Name Age of Onset Diabetes Mother Diabetes Paternal Grandmother Alcohol abuse Father Stroke Maternal Grandfather Breast cancer Mother [4] Allergies Allergen Reactions Soap Rash and Unknown Iodine Itching Povidone-Iodine Itching Seasonal [5] Current Outpatient Medications Medication Sig Dispense Refill acetaminophen (Tylenol) 500 MG tablet Take by mouth. albuterol (Ventolin HFA) 108 (90 Base) MCG/ACT inhaler Inhale 2 puffs every 4 hours as needed. amLODIPine (Norvasc) 10 MG tablet budesonide-formoterol (Symbicort) 80-4.5 MCG/ACT inhaler every 12 hours. buPROPion SR (Wellbutrin SR) 150 MG 12 hr tablet Take 150 mg by mouth 2 times daily. fluticasone (Flonase) 50 MCG/ACT nasal spray Administer 1 spray into each nostril daily. hydrALAZINE (Apresoline) 25 MG tablet hydrALAZINE (Apresoline) 50 MG tablet iron polysaccharides (Nu-Iron,Niferex) 150 MG capsule Take 150 mg by mouth daily. metoprolol tartrate (Lopressor) 100 MG tablet every 12 hours. NIFEdipine CC (Adalat CC) 90 MG 24 hr tablet Every 24 hours. Niraparib Tosylate (Zejula) 200 MG tablet Take by mouth. ondansetron (Zofran) 4 MG/5ML solution Take 4 mg by mouth Once. pantoprazole (ProtoNix) 40 MG EC tablet POTASSIUM CHLORIDE ER PO Take 20 mEq by mouth. traMADol (Ultram) 50 MG tablet Take by mouth. VITAMIN D PO Take by mouth. No current facility-administered medications for this visit. * Doris Douglass - 12/23/2024 11:45 AM EDT We want to inform you that your patient's blood pressure was noted to be elevated in our office today. We thank you for trusting us with your patient's health. Last BP: BP Readings from Last 3 Encounters: 12/23/24 (!) 193/105 11/20/24 (!) 144/78 11/19/24 135/78 documented in this [facility]05-08-2025 Telephone encounter Note* Telephone Encounter - Nima Desir MA - 12/04/2024 11:53 AM EDT Spoke to Deepa and pt is scheduled on 12/23/24 due to pt other appt conflict [id number] Miscellaneous Notes* Telephone Encounter - Nima Desir MA - 12/04/2024 11:53 AM EDT Spoke to Deepa and pt is scheduled on 12/23/24 due to pt other appt conflict * Telephone Encounter - Marcus Thomas MA - 12/03/2024 4:09 PM EDT Isabelle from [facility] would like to know when patient is going to be scheduled. She can be reached at [phone] documented in this [facility]05-07-2025 Telephone encounter Note* Telephone Encounter - Marcus Thomas MA - 12/03/2024 4:09 PM EDT Isabelle from [facility] would like to know when patient is going to be scheduled. She can be reached at [phone] [id number] Miscellaneous Notes* Telephone Encounter - Leanne Bazzi - 11/24/2024 10:27 AM EDT We have been unable to reach your patient to schedule their testing. Test Name: nct/emg 1st Attempt: 11/20 2nd Attempt: 11/21 3rd attempt; 11/24 documented in this encounterSTuscarawas [id number] Telephone encounter Note* Telephone Encounter - Leanne Rasconley - 11/24/2024 10:27 AM EDT We have been unable to reach your patient to schedule their testing. Test Name: nct/emg 1st Attempt: 11/20 2nd Attempt: 11/21 3rd attempt; 11/24 [id number] History of Present illness Narrative* Eduin Blackman MD - 11/20/2024 9:30 AM EDT Department of Neurological Sciences Impression: Diagnosis Plan 1. Weakness MR cervical spine wo contrast Nerve conduction test with EMG Presents with upper and lower extremity weakness and sensory loss. Reflexes are brisk in the knees with adductor spread. Reports transient urinary retention. Plan: MRI cervical spine EMG Orders Placed This Encounter Procedures MR cervical spine wo contrast Standing Status: Future Standing Expiration Date: 11/20/2025 Order Specific Question: What is the patient's sedation requirement? Answer: No Sedation Order Specific Question: Does the patient have an implantable device (pacemaker, defibrillator, stimulator, etc.)? Answer: No Nerve conduction test with EMG Standing Status: Future Standing Expiration Date: 11/20/2025 Scheduling Instructions: Right upper and lower CHIEF COMPLAINT: Chief Complaint Patient presents with New Patient Leg weakness x 2 months. HISTORY OF PRESENT ILLNESS: The patient is a 68 y.o. female with past medical history of asthma, hypertension, hyperlipidemia, sleep apnea who presents with weakness and inability to walk. Symptoms began 3 to 4 months ago with painless weakness in the right hand and difficulty standing in the kitchen. She had difficulty holding up a coffee pot. 2 months later she developed increasing lower extremity weakness and lost her ability to walk. Briefly admitted for weakness and urinary retention. Ambrose was placed then discontinued without recurrence of urinary retention. Was placed in nursing facility. Has great difficulty walking with a rollator. Reports sensation of tightness in the balls of her feet. Affirms muscle spasms in right lower extremity. Denies significant neck and back pain. Reports bilateral knee pain. Denies nic dexterity loss. No prior MRI or EMG. Past Medical History: Past Medical History: Diagnosis Date Asthma Cancer (CMS/HCC) (HCC) GERD (gastroesophageal reflux disease) History of blood transfusion Hyperlipidemia Hypertension Obesity Renal insufficiency Sleep apnea Past Surgical History: Past Surgical History: Procedure Laterality Date COLONOSCOPY ENDOMETRIAL ABLATION 2003 OTHER SURGICAL HISTORY 09/17/2020 SMA aneurysm ligation, application of Prevena wound vac TONSILLECTOMY (HISTORICAL) TOTAL ABDOMINAL HYSTERECTOMY W/ BILATERAL SALPINGOOPHORECTOMY 09/10/2020 NUSRAT/BSO/omentectomy snd debulking TUBAL LIGATION 1994 Medications: Current Outpatient Medications: albuterol (Ventolin HFA) 108 (90 Base) MCG/ACT inhaler, Inhale 2 puffs every 4 hours as needed., Disp: , Rfl: amLODIPine (Norvasc) 10 MG tablet, , Disp: , Rfl: buPROPion SR (Wellbutrin SR) 150 MG 12 hr tablet, Take 150 mg by mouth 2 times daily., Disp: , Rfl: fluticasone (Flonase) 50 MCG/ACT nasal spray, Administer 1 spray into each nostril daily., Disp: , Rfl: hydrALAZINE (Apresoline) 25 MG tablet, , Disp: , Rfl: hydrALAZINE (Apresoline) 50 MG tablet, , Disp: , Rfl: iron polysaccharides (Nu-Iron,Niferex) 150 MG capsule, Take 150 mg by mouth daily., Disp: , Rfl: metoprolol tartrate (Lopressor) 100 MG tablet, every 12 hours., Disp: , Rfl: NIFEdipine CC (Adalat CC) 90 MG 24 hr tablet, Every 24 hours., Disp: , Rfl: Niraparib Tosylate (Zejula) 200 MG tablet, Take by mouth., Disp: , Rfl: ondansetron (Zofran) 4 MG/5ML solution, Take 4 mg by mouth Once., Disp: , Rfl: pantoprazole (ProtoNix) 40 MG EC tablet, , Disp: , Rfl: POTASSIUM CHLORIDE ER PO, Take 20 mEq by mouth., Disp: , Rfl: traMADol (Ultram) 50 MG tablet, Take by mouth., Disp: , Rfl: VITAMIN D PO, Take by mouth., Disp: , Rfl: acetaminophen (Tylenol) 500 MG tablet, Take by mouth., Disp: , Rfl: NIFEdipine CC (Adalat CC) 90 MG 24 hr tablet, Take 90 mg by mouth every morning (before breakfast).Do not crush, chew, or split., Disp: , Rfl: Allergies: Iodine, Povidone-iodine, and Seasonal Social History: Social History Socioeconomic History Marital status: Single Spouse name: Not on file Number of children: Not on file Years of education: Not on file Highest education level: Not on file Occupational History Not on file Tobacco Use Smoking status: Former Smokeless tobacco: Never Substance and Sexual Activity Alcohol use: Not Currently Drug use: Never Sexual activity: Not on file Other Topics Concern Not on file Social History Narrative Not on file Social Drivers of Health Financial Resource Strain: Not on file Food Insecurity: Not on file Transportation Needs: Not on file Physical Activity: Not on file Stress: Not on file Social Connections: Not on file Intimate Partner Violence: Not on file Housing Stability: Not on file Family History: Family History Problem Relation Name Age of Onset Diabetes Mother Diabetes Paternal Grandmother Alcohol abuse Father Stroke Maternal Grandfather Breast cancer Mother REVIEW OF SYSTEMS: Positive for imbalance, numbness, urinary retention No fevers, significant weight loss, hearing loss, tinnitus, dysphagia, photosensitivity, visual disturbances, chest tightness, chest pain, shortness of breath, palpitations, abdominal pain, nausea, heat intolerance, dysuria,, headaches, seizures, confusion, PHYSICAL EXAM: Vitals: BP (!) 146/73 Pulse 76 Ht 5' 7 (1.702 m) Wt 255 lb (116 kg) Comment: pt reported BMI 39.94kg/m General: The patient was well developed, in no acute distress. HEENT: Normocephalic, atraumatic. Conjunctiva, lids, pupils, and irises clear. Oral mucosa is moist. Neck: . No carotid bruits. No nuchal rigidity or neck tenderness to palpation. Cardiovascular: Regular rate and rhythm. No murmurs. Arms and legs are warm and well-perfused. No clubbing, cyanosis or edema. Lungs: Clear to auscultation. Abdomen: Soft, non-tender, non-distended. Positive bowel sounds. Skin (Restricted to face and distal upper and lower extremities): Unremarkable. Musculoskeletal: No tenderness observed. Neurological Examination: Mental Status: Patient is currently awake, alert, and oriented to person, place, and time. Able to state the reason for today's visit and can recall events leading up to this visit. Speech is fluent without any evidence of dysphasia. Cranial Nerves: II Optic: Pupils equal and reactive. Visual oliva full. No papilledema appreciated on fundoscopic exam. III Oculomotor, IV Trochlear, Abducens: Extraocular movements intact. No nystagmus. No gaze palsy or paresis. No ptosis. V Trigeminal: Facial sensation normal and symmetric in V1-V3 distribution. VII Facial: Facial strength normal and symmetric. VIII Vestibulocochlear: Hearing intact bilaterally. IX Glossopharyngeal / X Vagus: Palate elevates symmetrically and uvula midline. XI Accessory: Shoulder shrug symmetric. XII Hypoglossal: Tongue midline with normal bilateral strength. Motor Examination: 4/5 strength in bilateral upper and lower extremities to confrontation. Decreased muscle bulk. Muscle atrophy difficult to appreciate in feet due to dependent edema. No obvious atrophy or fasciculations seen. No pronator drift. Sensory Examination: Sensation intact to light touch, pinprick, temperature. Affirms decreased vibration in hands and feet. No clear spinal sensory level Reflexes: brisk in upper extremities with spread in both knees, ankles are difficult to obtain Cerebellar Examination: There is no overt dysmetria nor dysdiadochokinesia with [id number] or rapid alternating movements. Gait Examination: defer due to fall risk documented in this [facility]04-23-2025 History of Present illness Narrative* Bigg Pan MD - 11/19/2024 10:15 AM EDT NEUROSURGERY CONSULT NOTE Patient Name: Britta Young Patient : 1955 PCP: Katie Velarde MD History of Present Ilness: 68 y.o. presents for hospital follow-up for generalized weakness and inability to ambulate. Patient was seen in outside hospital after her son found her down and unable to ambulate. During her hospitalization they state that she underwent imaging of her spine with no signi ficant findings. Unfortunately we do not have the reports or the imaging for review today. She states that she has swelling in her lower extremities as well as bilateral knee pain. This is new, she states she has never talked to a doctor before about her lower extremity edema. She states that it isdifficult for her to ambulate due to edema knee pain and feeling muscle weakness. She denies any low back pain mid back pain or neck pain. She denies any numbness or tingling or changes in sensation in either the upper or lower extremities. She is dependent on a wheelchair at this point. She does not report any difficulty with her arms and fine finger movements or coordination with herarms. Her son feels that she is improving with her strength and ambulation through physical therapy. Today they believed they were seeing a neurologist, they were wondering why they were set up to see neurosurgery. Chief Complaint Patient presents with New Patient follow up from hospital stay pt having a hard time walking Conservative Treatments: Physical Therapy: She is currently in a rehab facility undergoing physical therapy. Her son states that her strength has greatly improved since being in the facility. Past Medical History: Past Medical History: Diagnosis Date Asthma Cancer (CMS/HCC) ([facility]) GERD (gastroesophageal reflux disease) History of blood transfusion Hyperlipidemia Hypertension Obesity Renal insufficiency Sleep apnea Past Surgical History: Past Surgical History: Procedure Laterality Date COLONOSCOPY ENDOMETRIAL ABLATION 2003 OTHER SURGICAL HISTORY 09/17/2020 SMA aneurysm ligation, application of Prevena wound vac TONSILLECTOMY (HISTORICAL) TOTAL ABDOMINAL HYSTERECTOMY W/ BILATERAL SALPINGOOPHORECTOMY 09/10/2020 NUSRAT/BSO/omentectomy snd debulking TUBAL LIGATION 1994 Home Medications: Prior to Admission medications Medication Sig Start Date End Date Taking? Authorizing Provider acetaminophen (Tylenol) 500 MG tablet Take by mouth. Yes Historical Provider, albuterol (Ventolin HFA) 108 (90 Base) MCG/ACT inhaler Inhale 2 puffs every 4 hours as needed. Yes Historical Provider, amLODIPine (Norvasc) 10 MG tablet 11/10/24 Yes Historical Provider, buPROPion SR (Wellbutrin SR) 150 MG 12 hr tablet Take 150 mg by mouth 2 times daily. Yes HistoricalProviderMD fluticasone (Flonase) 50 MCG/ACT nasal spray Administer 1 spray into each nostril daily. Yes Historical Provider, hydrALAZINE (Apresoline) 25 MG tablet 11/12/24 Yes Historical Provider, hydrALAZINE (Apresoline) 50 MG tablet 11/12/24 Yes Historical Provider, iron polysaccharides (Nu-Iron,Niferex) 150 MG capsule Take 150 mg by mouth daily. Yes Historical Provider, metoprolol tartrate (Lopressor) 100 MG tablet every 12 hours. Yes Historical Provider, NIFEdipine CC (Adalat CC) 90 MG 24 hr tablet Every 24 hours. Yes Historical Provider, NIFEdipine CC (Adalat CC) 90 MG 24 hr tablet Take 90 mg by mouth every morning (before breakfast). Do not crush, chew, or split. Yes Historical Provider, Niraparib Tosylate (Zejula) 200 MG tablet Take by mouth. Yes Historical Provider, ondansetron (Zofran) 4 MG/5ML solution Take 4 mg by mouth Once. Yes Historical Provider, pantoprazole (ProtoNix) 40 MG EC tablet 10/06/24 Yes Historical Provider, POTASSIUM CHLORIDE ER PO Take 20 mEq by mouth. Yes Historical Provider, traMADol (Ultram) 50 MG tablet Take by mouth. Yes Historical Provider, VITAMIN D PO Take by mouth. Yes Historical Provider, Allergies: Iodine, Povidone-iodine, and Seasonal Social History: TOBACCO: reports that she has quit smoking. She has never used smokeless tobacco. ETOH: reports that she does not currently use alcohol. RECREATIONAL DRUG USE: Social History Substance and Sexual Activity Drug Use Never Family History: Family History Problem Relation Name Age of Onset Diabetes Mother Diabetes Paternal Grandmother Alcohol abuse Father Stroke Maternal Grandfather Breast cancer Mother Review of Systems Constitutional: Negative. HENT: Negative. Eyes: Negative. Respiratory: Negative. Cardiovascular: Negative. Gastrointestinal: Negative. Endocrine: Negative. Genitourinary: Negative. Musculoskeletal: Negative. Skin: Negative. Neurological: Positive for weakness. Psychiatric/Behavioral: Negative. Physical Examination: Vitals: 11/19/24 1032 BP: 135/78 Pulse: 75 Physical Exam Constitutional: Appearance: Normal appearance. HENT: Head: Normocephalic. Eyes: Extraocular Movements: Extraocular movements intact. Pupils: Pupils are equal, round, and reactive to light. Cardiovascular: Rate and Rhythm: Normal rate. Pulmonary: Effort: Pulmonary effort is normal. Abdominal: Palpations: Abdomen is soft. Musculoskeletal: General: Normal range of motion. Cervical back: Normal range of motion and neck supple. Comments: Patient currently sitting in a wheelchair. She does have noticeable edema in bilateral lower extremities from the knee to the ankles. Skin: General: Skin is warm and dry. Neurological: General: No focal deficit present. Psychiatric: Mood and Affect: Mood normal. Judgment: Judgment normal. Neurological Exam Mental Status Awake, alert and oriented to person, place and time. Cranial Nerves CN III, IV, : Extraocular movements intact bilaterally. Pupils equal round and reactive to light bilaterally. Motor Bilateral upper lower extremitie bilateral lower extremities groups are 5 out of 5, sensation is intact throughout Bilateral lower extremities exam limited due to pain. She is able to resist gravity in bilateral lower extremity quadriceps and hamstrings And she is able to dorsiflex and plantarflex her feet.. Sensory She denies changes in sensations. Gait Weakness she is unable to ambulate at this time and is in a wheelchair.. No sensory level Radiology Personal review: No imaging was available for review. By report of the family and patient, she had an MRI of the spine that did not show stenosis ASSESSMENT / PLAN : It does not seem that she needs surgical intervention at this time. By report of the patient and family the imaging she had at the outside hospital did not reveal spinal stenosis. She is not having symptoms of cervical myelopathy with hyperreflexia or a sensory level. They believed they were seeingneurology today. Will get her set up with an appointment to see a neurologist, we be happy to see her in the future if neurology finds a surgical indication for her. Diagnosis Plan 1. Weakness documented in this encounterSTuscarawas [id number] Telephone encounter Note* Telephone Encounter - Jocelyne Hwang - 10/27/2024 3:23 PM EDT Name of Caller: Hailey Contact Reason for Appointment: Hailey is requesting an appointment for pt. Please call to schedule Office Name: [id number] Miscellaneous Notes* Telephone Encounter - Jocelyne Martin Eri - 10/27/2024 3:23 PM EDT Name of Caller: Hailey Contact Reason for Appointment: Hailey is requesting an appointment for pt. Please call to schedule Office Name: Neurosurgery documented in this [facility]03-04-2025 [facility]02-28-2025 Evaluation note* Diagnosis Onset Date Resolution Status Admit Date CHF (congestive heart failure) acute September 26, 2024 2:37pm Debility acute September 26, 2024 2:37pm Elevated brain natriuretic peptide (BNP) level acute August 2:37pm Lymphedema acute September 26, 2024 2:37pm RUI (acute kidney injury) resolved September 26, 2024 2:37pm Chemotherapy management, encounter for acute December 25, 2024 1 :30pm Dehydration acute December 25 1:30pm Diarrhea due to drug acute December 25, 2024 1:30pm Encounter for education acute M ay 2024 1:30pm Hypomagnesemia acute December 25, 2024 1:30pm Iron deficiency anemia acute Ma y 2024 1:30pm Ovarian mass, left acute December 252024 1:30pm Edema of left lower extremity chroni c December 25, 2024 1:30pm Mass of peritoneum chronic December 252024 1:30pm Ovarian cancer chronic December 25, 2024 1:30pm Hypokalemia resolved December 25 1:30pm Difficulty walking acute December 252024 1:34pm Anemia chronic December 25, 2024 1:34pm Ovarian cancer chronic December 25, 2024 1:34pm [facility] Work Phone: [phone]) 206-279302-28-2025 Evaluation note* Diagnosis Onset Date Resolution Status Admit Date CHF (congestive heart failure) acute September 26, 2024 2:37pm Debility acute September 26, 2024 2:37pm Elevated brain natriuretic peptide (BNP) level acute August 2:37pm Lymphedema acute September 26, 2024 2:37pm RUI (acute kidney injury) resolved September 26, 2024 2:37pm Chemotherapy management, encounter for acute December 25, 2024 1 :30pm Dehydration acute December 25 1:30pm Diarrhea due to drug acute December 25, 2024 1:30pm Encounter for education acute M ay 2024 1:30pm Hypomagnesemia acute December 25, 2024 1:30pm Iron deficiency anemia acute Ma y 2024 1:30pm Ovarian mass, left acute December 252024 1:30pm Edema of left lower extremity chroni c December 25, 2024 1:30pm Mass of peritoneum chronic December 252024 1:30pm Ovarian cancer chronic December 25, 2024 1:30pm Hypokalemia resolved December 25 1:30pm Difficulty walking acute December 252024 1:34pm Anemia chronic December 25, 2024 1:34pm Ovarian cancer chronic December 25, 2024 1:34pm Difficulty walking acute December 282024 3:17pm Ovarian cancer chronic January 13, 2025 3:17pm [facility] Work Phone: [phone]) 394-595802-05-2025 Evaluation note* Diagnosis Onset Date Resolution Status Admit Date First degree burn of left foot acute September 03, 2024 2:28pm Bilateral lower extremity edema chronic September 03 2:28pm CKD (chronic kidney disease) , stage IV chronic September 03 2:28pm Hypertension chronic August 2:28pm Type 2 diabetes mellitus chronic September 03, 2024 2:28pm Anemia chronic September 10, 2024 12:02pm MGUS (monoclonal gammopathy of unknown significance) chronic August 302024 12:02pm Ovarian cancer chronic August 302024 12:02pm CHF (congestive heart failure) acute September 26, 2024 2:37pm Debility acute September 26, 2024 2:37pm Elevated brain natriuretic peptide (BNP) level acute August 2:37pm Lymphedema acute September 26, 2024 2:37pm RUI (acute kidney injury) resolved September 26, 2024 2:37pm Chemotherapy management, encounter for acute December 25, 2024 1 :30pm Dehydration acute December 25 1:30pm Diarrhea due to drug acute December 25, 2024 1:30pm Encounter for education acute M ay 2024 1:30pm Hypomagnesemia acute December 25, 2024 1:30pm Iron deficiency anemia acute Janett casper 2024 1:30pm Ovarian mass, left acute December 252024 1:30pm Edema of left lower extremity chroni c December 25, 2024 1:30pm Mass of peritoneum chronic December 252024 1:30pm Ovarian cancer chronic December 25, 2024 1:30pm Hypokalemia resolved December 25 1:30pm Difficulty walking acute December 252024 1:34pm Anemia chronic December 25, 2024 1:34pm Ovarian cancer chronic December 25, 2024 1:34pm [facility] [employer] [facility] Work Phone: [phone] Note* Letter - Coordinator, Mammography - 12/26/2023 9:58 PM EDT December 27, 2023 PID: [id number] Britta Young [address] [place] [address] Dear Ms. Young, We are pleased to inform you that the results of your recent breast imaging exam on 12/26/2023 are normal. Early detection of cancer is very important. We also understand recommendations regarding breast cancer screening are controversial. Please discuss with your primary care provider which strategy is best for you and whether a mammogram is right for you. Your imaging studies and report will be kept on file at [facility] as part of your permanent medical record and are available for your continuing care. Thank you for allowing us to help in meeting your health care needs. Sincerely, Dr. Adler Interpreting Radiologist [facility] (Normal over 40) [facility]05-29-2024 Miscellaneous Notes* Letter - Coordinator, Mammography - 12/26/2023 9:58 PM EDT December 27, 2023 PID: [id number] Britta Young [address] [place] [address] Dear Ms. Young, We are pleased to inform you that the results of your recent breast imaging exam on 12/26/2023 are normal. Early detection of cancer is very important. We also understand recommendations regarding breast cancer screening are controversial. Please discuss with your primary care provider which strategy is best for you and whether a mammogram is right for you. Your imaging studies and report will be kept on file at [facility] as part of your permanent medical record and are available for your continuing care. Thank you for allowing us to help in meeting your health care needs. Sincerely, Dr. Adler Interpreting Radiologist [facility] (Normal over 40) documented in this encounterMer[facility]05-29-2024 NoteHNO ID: [id number] Author: MARIZA GALVEZ Mammo Tech Service: ? Author Type: Technologist Type: Progress Notes Filed: 12/26/2023 16:28 Note Text: Radiology Service Progress Note PATIENT NAME: Britta Young DATE OF SERVICE: December 26, 2023 TIME: 4:28 PM PATIENT IDENTITY VERIFICATION COMPLETED USING TWO (2) IDENTIFIERS: Name and Date of confirmed by patient verbally. FALL SCREENING: Has the patient had 2 falls in the last year or 1 fall with injury or currently using an Ambulatory Assistive Device (Walker, Cane, Wheelchair, Crutches, etc.)? Yes, Patient High Risk for Falls What interventions were put in place to prevent falls during this visit? Offered Assistance with Transfers/Clothing, Instructed Patient to Remain Seated (Not on Exam Table) Until Exam, and Increased Observations by Caregivers PATIENT GENDER DATA: Female. status: : No status: NO. PATIENT RELEVANT IMPLANT DATA REVIEWED: Not Applicable PATIENT PRESENTS WITH AN IMPLANTABLE OR ATTACHED MASTER GREAT [place]AKES: No RADIOLOGY DEPARTMENT: Mammography PERIPHERAL IV DATA: Not applicable SIGNED BY: Go Eric December 26, 2023 4:28 [facility]05-29-2024 History of Present illness Narrative* Mariza Galvez Mammo Tech - 12/26/2023 1:10 PM EDT Radiology Service Progress Note PATIENT NAME: Britta Young DATE OF SERVICE: December 26, 2023 TIME: 4:28 PM PATIENT IDENTITY VERIFICATION COMPLETED USING TWO (2) IDENTIFIERS: Name and Date of confirmedby patient verbally. FALL SCREENING: Has the patient had 2 falls in the last year or 1 fall with injury or currently using an Ambulatory Assistive Device (Walker, Cane, Wheelchair, Crutches, etc.)? Yes, Patient High Riskfor Falls What interventions were put in place to prevent falls during this visit? Offered Assistance with Transfers/Clothing, Instructed Patient to Remain Seated (Not on Exam Table) Until Exam, and Increased Observations by Caregivers PATIENT GENDER DATA: Female. status: : No status: NO. PATIENT RELEVANT IMPLANT DATA REVIEWED: Not Applicable PATIENT PRESENTS WITH AN IMPLANTABLE OR ATTACHED MASTER GREAT LAKES: No RADIOLOGY DEPARTMENT: Mammography PERIPHERAL IV DATA: Not applicable SIGNED BY: Go Eric December 26, 2023 4:28 PM documented in this encounterMer[facility]10-10-2023 NoteHNO ID: [id number] Author: Darlene Forde APRN.DISTRIBUTION CENTER ASSISTANT Service: ? Author Type: Nurse Practitioner Type: Progress Notes Filed: 05/08/2023 12:58 PM Note Text: This note was created using Driver Hireriter. Subjective Britta Young is a 67 year old female. 67 year old female with PMH HTN, GERD, CARLA, malignant ovarian CA (remission for 2 to 3 years) presents for mouth complaints. Chronic in nature Endorses that she has a longstanding history of needing dental work. Of note, she has been evaluated [facility], [facility] in [place], beginning of this year, stating she was evaluated and had x 2 teeth pulled. States she saw [facility], last year, and start of gum disease, citing it was going to be 11 thousand dollars. She attempted to call the new dentist she wants to see today, but endorses that they informed they cannot see until May. Diffuse dental pain +jaw swelling + pain with chewing +sensitivity to hot and cold Denies fever or chills Denies inability to open or close Just need an antibiotic The history is provided by the patient. No science interpreter was used. Mouth/Lip Problem This is a recurrent problem. The current episode started more than 1 year ago. The problem occurs every several days. The problem has been gradually worsening. Pertinent negatives include no abdominal pain, anorexia, arthralgias, change in bowel habit, chest pain, chills, congestion, coughing, diaphoresis, fatigue, fever, headaches, joint swelling, myalgias, nausea, neck pain, numbness, rash, sore throat, swollen glands, urinary symptoms, vertigo, visual change, vomiting or weakness. Exacerbated by: eating and drinking. She has tried nothing for the symptoms. The treatment provided no relief. PAST MEDICAL HISTORY Diagnosis Date Pneumonia 2010 [facility]. Unspecified essential hypertension PAST SURGICAL HISTORY Procedure Laterality Date ENDOMETRIAL ABLTJ THERMAL W/O HYSTEROSCOPIC GUID 2003 Dr. Maxime AGARWAL WITH IMAGING Right 02/05/2017 U/S FNA right retroareolar breast LIG/TRNSXJ FLP TUBE ABDL/VAG APPR UNI/BI age 39 PAST SURGICAL HISTORY OF removal of growth on toe TOTAL ABDOM HYSTERECTOMY ALLERGIES Betadine [Povidone-Iodine] MEDICATIONS amoxicillin-clavulanic acid (AUGMENTIN) 875-125 mg per tablet Take 1 tablet by mouth two times a day for 7 days. atorvastatin (LIPITOR) 20 mg tablet Take 1 tablet by mouth daily at bedtime. For cholesterol. benzonatate (TESSALON PERLES) 100 mg capsule Take 2 capsules by mouth three times daily as needed. buPROPion SR (ZYBAN SR; WELLBUTRIN SR) 150 mg 12 hr tablet TAKE 1 TABLET TWICE DAILY COMPOUNDED PRESCRIPTION CPAP mask Dx: CARLA G47.33 COMPR.STOCKING,THIGH,REG,X-LRG (COMP.STOCKING,THIGH,REG,X-LRG) [facility] Wear stockings through the day.remove at night. (I89.0) Lymphedema of both lower extremities CPAP Initiate CPAP @ 14cm of water with humidification. Mask (per patient preference) optional chin strap (if indicated) , filters, tubing, humidifier and lifetime supplies. fluticasone (FLONASE) 50 mcg/actuation nasal spray Use 2 Sprays in each nostril once daily. Rinse mouth after use. fluticasone (FLONASE) 50 mcg/actuation nasal spray Use 2 Sprays in each nostril once daily. Rinse mouth after use. hydroCHLOROthiazide (HYDRODIURIL, ESIDRIX) 25 mg tablet TAKE 2 TABLETS EVERY DAY lansoprazole (PREVACID) 30 mg capsule take 1 capsule daily 1/2 hour before breakfast metoprolol tartrate, short acting, (LOPRESSOR) 100 mg tablet Take 1 tablet by mouth twice daily. niraparib (ZEJULA) 200 mg tablet Take 200 mg by mouth once daily. potassium chloride ER (K-DUR, KLOR-CON) 20 mEq tablet TAKE 1 TABLET BY MOUTH TWICE DAILY ZEJULA 100 mg capsule (Patient not taking: Reported on 05/08/2023) FAMILY HISTORY Problem Relation Age of Onset Breast Cancer Mother Diabetes Mother Diabetes Maternal Grandmother Alcohol/Drug Father Stroke Maternal Grandfather Social History Tobacco Use Smoking status: Former Packs/day: .5 Types: Cigarettes Smokeless tobacco: Never Vaping Use Vaping Use: Never used Substance Use Topics Alcohol use: No Drug use: No Review of Systems Constitutional: Negative for chills, diaphoresis, fatigue and fever. HENT: Positive for dental problem. Negative for congestion and sore throat. Eyes: Negative for pain, discharge and itching. Respiratory: Negative for apnea, cough, choking and chest tightness. Cardiovascular: Negative for chest pain. Gastrointestinal: Negative for abdominal pain, anorexia, change in bowel habit, nausea and vomiting. Musculoskeletal: Negative for arthralgias, joint swelling, myalgias and neck pain. Skin: Negative for rash. Allergic/Immunologic: Positive for immunocompromised state. Negative for environmental allergies and food allergies. Neurological: Negative for dizziness, vertigo, facial asymmetry, weakness, numbness and headaches. Hematological: Negative (more content not included)...[facility] 05-08-2023 History of Present illness Narrative* Darlene Forde APRN.DISTRIBUTION CENTER ASSISTANT - 05/08/2023 12:47 PM EDT This note was created using NoteWriter. Subjective Britta Young is a 67 year old female. 67 year old female with PMH HTN, GERD, CARLA, malignant ovarian CA (remission for 2 to 3 years) presents for mouth complaints. Chronic in nature Endorses that she has a longstanding history of needing dental work. Of note, she has been evaluated [facility] in [place], beginning of this year, stating she was evaluated and had x 2 teeth pulled. States she saw [facility], last year, and start of gum disease, citing it was going to be 11 thousand dollars. She attempted to call the new dentist she wants to see today, but endorses that they informed they cannot see until May. Diffuse dental pain +jaw swelling + pain with chewing +sensitivity to hot and cold Denies fever or chills Denies inability to open or close Just need an antibiotic The history is provided by the patient. No science interpreter was used. Mouth/Lip Problem This is a recurrent problem. The current episode started more than 1 year ago. The problem occurs every several days. The problem has been gradually worsening. Pertinent negatives include no abdominal pain, anorexia, arthralgias, change in bowel habit, chest pain, chills, congestion, coughing, diaphoresis, fatigue, fever, headaches, joint swelling, myalgias, nausea, neck pain, numbness, rash, sore throat, swollen glands, urinary symptoms, vertigo, visual change, vomiting or weakness. Exacerbated by: eating and drinking. She has tried nothing for the symptoms. The treatment provided no relief. PAST MEDICAL HISTORY Diagnosis Date Pneumonia 2010 [facility]. Unspecified essential hypertension PAST SURGICAL HISTORY Procedure Laterality Date ENDOMETRIAL ABLTJ THERMAL W/O HYSTEROSCOPIC GUID 2003 Dr. Swartz FNA WITH IMAGING Right 02/05/2017 U/S FNA right retroareolar breast LIG/TRNSXJ FLP TUBE ABDL/VAG APPR UNI/BI age 39 PAST SURGICAL HISTORY OF removal of growth on toe TOTAL ABDOM HYSTERECTOMY ALLERGIES Betadine [Povidone-Iodine] MEDICATIONS amoxicillin-clavulanic acid (AUGMENTIN) 875-125 mg per tablet Take 1 tablet by mouth two times a day for 7 days. atorvastatin (LIPITOR) 20 mg tablet Take 1 tablet by mouth daily at bedtime. For cholesterol. benzonatate (TESSALON PERLES) 100 mg capsule Take 2 capsules by mouth three times daily as needed. buPROPion SR (ZYBAN SR; WELLBUTRIN SR) 150 mg 12 hr tablet TAKE 1 TABLET TWICE DAILY COMPOUNDED PRESCRIPTION CPAP mask Dx: CARLA G47.33 COMPR.STOCKING,THIGH,REG,X-LRG (COMP.STOCKING,THIGH,REG,X-LRG) misc Wear stockings through the day.remove at night. (I89.0) Lymphedema of both lower extremities CPAP Initiate CPAP @ 14cm of water with humidification. Mask (per patient preference) optional chinstrap (if indicated) , filters, tubing, humidifier and lifetime supplies. fluticasone (FLONASE) 50 mcg/actuation nasal spray Use 2 Sprays in each nostril once daily. Rinse mouth after use. fluticasone (FLONASE) 50 mcg/actuation nasal spray Use 2 Sprays in each nostril once daily. Rinse mouth after use. hydroCHLOROthiazide (HYDRODIURIL, ESIDRIX) 25 mg tablet TAKE 2 TABLETS EVERY DAY lansoprazole (PREVACID) 30 mg capsule take 1 capsule daily 1/2 hour before breakfast metoprolol tartrate, short acting, (LOPRESSOR) 100 mg tablet Take 1 tablet by mouth twice daily. niraparib (ZEJULA) 200 mg tablet Take 200 mg by mouth once daily. potassium chloride ER (K-DUR, KLOR-CON) 20 mEq tablet TAKE 1 TABLET BY MOUTH TWICE DAILY ZEJULA 100 mg capsule (Patient not taking: Reported on 05/08/2023) FAMILY HISTORY Problem Relation Age of Onset Breast Cancer Mother Diabetes Mother Diabetes Maternal Grandmother Alcohol/Drug Father Stroke Maternal Grandfather Social History Tobacco Use Smoking status: Former Packs/day: .5 Types: Cigarettes Smokeless tobacco: Never Vaping Use Vaping Use: Never used Substance Use Topics Alcohol use: No Drug use: No Review of Systems Constitutional: Negative for chills, diaphoresis, fatigue and fever. HENT: Positive for dental problem. Negative for congestion and sore throat. Eyes: Negative for pain, discharge and itching. Respiratory: Negative for apnea, cough, choking and chest tightness. Cardiovascular: Negative for chest pain. Gastrointestinal: Negative for abdominal pain, anorexia, change in bowel habit, nausea and vomiting. Musculoskeletal: Negative for arthralgias, joint swelling, myalgias and neck pain. Skin: Negative for rash. Allergic/Immunologic: Positive for immunocompromised state. Negative for environmental allergies and food allergies. Neurological: Negative for dizziness, vertigo, facial asymmetry, weakness, numbness and headaches. Hematological: Negative for adenopathy. Does not bruise/bleed easily. Psychiatric/Behavioral: Negative for agitation and behavioral problems. Objective BP 142/84 Pulse 65 Temp 36.7 C (98 F) (Tympanic) Resp 18 Wt 132.1 kg (291 lb 3.2 oz) QsT154% BMI 46.30 kg/m Physical Exam Vitals and nursing note reviewed. Constitutional: General: She is not in acute distress. Appearance: Normal appearance. She is normal weight. She is not ill-appearing, toxic-appearing or diaphoretic. HENT: Head: Normocephalic and atraumatic. Right Ear: Ear canal and external ear normal. Left Ear: Ear canal and external ear normal. Nose: Nose normal. No congestion or rhinorrhea. Mouth/Throat: Mouth: Mucous membranes are moist. Pharynx: No oropharyngeal exudate or posterior oropharyngeal erythema. Comments: Wide spread dental decay Inflamed and recesses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 96% Gen- AOx3, NAD Heart- RRR, S1S2 Lungs- CTAB Abd- soft, NT, mildly distended, no r/g, BS present Incision- vertical midline incision with dressing in place, old blood inferiorly unchanged from exam this am Ext- no edema or tenderness A/P: Continue postoperative care. Encourage IS use and ambulation. 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 female ., POD # 1 s/p Total Abdominal Hysterectomy, Omentectomy and Debulking Patient seen and examined. No acute events overnight Pain is controlled. Patient is tolerating oralintake. She is urinating independently. . She is ambulating without difficulty. She is not passing flatus and has not yet had a BM. She denies Fever/Chills, Chest Pain, SOB, N/V. Vitals: Vitals: 09/10/20 1830 09/10/20 1904 09/10/20 2328 09/11/20 0345 BP: (!) 148/84 (!) 163/93 (!) 150/92 (!) 147/90 Pulse: 78 77 89 79 Resp: 16 16 16 16 Temp: 96.8 F (36 C) 97.6 F (36.4 C) 98.2 F (36.8 C) TempSrc: Temporal Temporal SpO2: 97% 99% 100% 100% Weight: Height: Intake/Output: I/O last 3 completed shifts: In: 1500 [I.V.:1500] Out: 650 [Urine:50; Blood:600] I/O this shift: In: - Out: 800 [Urine:800] Physical Exam: Gen: NAD, alert and cooperative HEENT: Normocephalic, atraumatic, EOMI, MMM Resp: CTABL, no WRR Card: RRR, no murmur Abd: soft, non distended appropriately tender to palpation , no rebound, no guarding. Present BS Incisions: vertical midline incision with dressing still in place, with old dark blood beneath dressing, inferiorly, no active bleeding noted Ext: No LE edema, no calf tenderness or swelling Medications: Current Facility-Administered Medications Medication Dose Route Frequency Provider Last Rate Last Admin albuterol (PROVENTIL) nebulizer solution 2.5 mg 2.5 mg Nebulization Q6H PRN Yolis Sandoval MD mometasone-formoterol (DULERA) 200-5 MCG/ACT inhaler 2 puff 2 puff Inhalation BID Yolis Sandoval MD 2 puff at 09/10/202130 buPROPion (WELLBUTRIN SR) extended release tablet 150 mg 150 mg Oral BID Yolis Sandoval MD 150 mg at 09/10/202130 pantoprazole (PROTONIX) tablet 40 mg 40 mg Oral QAM AC Yolis Sandoval MD 40 mg at 09/11/20 0551 metoprolol tartrate (LOPRESSOR) tablet 100 mg 100 mg Oral BID Yolis Sandoval MD NIFEdipine (PROCARDIA XL) extended release tablet 90 mg 90 mg Oral Daily Yolis Sandoval MD potassium chloride (KLOR-CON) packet 20 mEq 20 mEq Oral BID Yolis Sandoval MD 20 mEq at sodium chloride flush 0.9 % injection 10 mL 10 mL Intravenous 2 times per day Yolis Sandoval MD 10 mL at 09/10/202021 sodium chloride flush 0.9 % injection 10 mL 10 mL Intravenous PRN Yolis Sandoval MD acetaminophen (TYLENOL) tablet 650 mg 650 mg Oral Q4H PRN Yolis Sandoval MD oxyCODONE (ROXICODONE) immediate release tablet 5 mg 5 mg Oral Q4H PRN Yolis Sandoval MD 5 mg at09/10/202021 Or oxyCODONE (ROXICODONE) immediate release tablet 10 mg 10 mg Oral Q4H PRN Yolis Sandoval MD HYDROmorphone (DILAUDID) injection 0.25 mg 0.25 mg Intravenous Q3H PRN Yolis Sandoval MD Or HYDROmorphone (DILAUDID) injection 0.5 mg 0.5 mg Intravenous Q3H PRN Yolis Sandoval MD promethazine (PHENERGAN) tablet 12.5 mg 12.5 mg Oral Q6H PRN Yolis Sandoval MD Or ondansetron (ZOFRAN) injection 4 mg 4 mg Intravenous Q6H PRN Yolis Sandoval MD Diagnostics: No results found. Labs: Admission on 09/10/2020 Component Date Value Ref Range Status ABO Grouping 09/10/2020 B NA Final Rh Type 09/10/2020 POS NA Final Antibody Screen 09/10/2020 NEG NA Final WBC 09/11/2020 14.9* 3.6 - 10.7 10*3/uL Final RBC 09/11/2020 2.56* 3.80 - 5.20 10*6/uL Final Hemoglobin 09/11/2020 8.4* 11.7 - 16.0 g/dL Final Hematocrit 09/11/2020 26.1* 35.0 - 47.0 % Final MCV 09/11/2020 101.6* 79.0 - 98.0 fL Final MCH 09/11/2020 32.8 26.0 - 34.0 pg Final MCHC 09/11/2020 32.3 32.0 - 36.0 % Final RDW 09/11/2020 20.3* 11.5 - 14.5 % Final Platelets 09/11/2020 165 140 - 440 10*3/uL Final MPV 09/11/2020 10.8* 7.4 - 10.4 fL Final ] Assessment/Plan: Britta Young 64 y.o. female ., POD #1 s/p NUSRAT, BSO, Omentectomy, Debulking 1. Postoperative state - Doing well, vitals stable - voiding independently, ambulating, tolerating general diet - Encourage ambulation and use of incentive spirometer - Pain controlled: yes -Hgb 8.6-->8.3 this am - DVT Proph:SCDs currently, will discuss adding oral anticoagulation on rounds - Abx:Ancef 3g x2 - IVF: Hep Lock - Disposition: Plan of care to be discussed with attending this am 2. CARLA - continue home CPAP - Albuterol PRN 3. HTN - Continue home Procardia 4. Renal Insufficiency - Cr 1.97 on 09/09 - No NSIADS 5. Ovarian Cancer - diagnosed 03/2020 - s/p 4 courses of neoadjuvant carbo/taxol; last dose on 08/03 Estefania Voss DO 09/11/2020, 6:25 AM Associated attestation - Aravind Carey MD - 09/11/2020 9:29 AM EST Patient rounded, discussed with the residents. Doing well. Hemoglobin is stable. Tolerating p.o. and pain is well controlled. Discussed surgical findings. Okay to start prophylactic eliquis * Monserrat Klein RN - 09/10/2020 5:15 PM EST Pt's son updated. documented in this encounter Assessments Diagnosis Post-op pain- Primary Other acute postoperative pain Malignant neoplasm of ovary (HCC) Malignant neoplasm of ovary Secondary malignant neoplasm of omentum (HCC) Postoperative state Other postprocedural status Advance Directives No Advanced Directives Records FoundLatest Code Status on File Code Status Date Activated Date Inactivated Comments Full Code 09/10/2020 7:27 PM Full Code 09/10/2020 12:32 PM 09/10/2020 6:49 PM Advance Directive Response Recorded Date/ Time Advance Directives No December 07 11:55am Living Will No December 07, 2020 1 1:55am Power of Technical Support Engineer No December 07, 2020 11:55am Advance Directive Response Recorded Date/ Time Advance Directives No June 04, 2023 4:54pm Living Will No June 04 4:54pm Power of Technical Support Engineer No June 04, 2023 4:54pm Advance Directive Response Recorded Date/ Time Living Will No June 04 4:54pm Do you have a Healthcare Power of Technical Support Engineer? No June 04, 2023 4:54pm Living Will No December 07, 2020 1 1:55am Do you have a Healthcare Power of Technical Support Engineer? No December 07, 2020 11:55am Living Will No September 26, 2 025 4:51pm Do you have a Healthcare Power of Technical Support Engineer? No September 26, 2024 4:51pm Advance Directives No June 04, 2023 4:54pm Advance Directive Response Recorded Date/ Time Living Will No December 07, 2020 1 1:55am Do you have a Healthcare Power of Technical Support Engineer? No December 07, 2020 11:55am Living Will No September 26, 2 025 4:51pm Do you have a Healthcare Power of Technical Support Engineer? No September 26, 2024 4:51pm Advance Directives No June 04, 2023 4:54pm Advance Directive Response Recorded Date/ Time Living Will No December 07, 2020 1 1:55am Do you have a Healthcare Power of Technical Support Engineer? No December 07, 2020 11:55am Advance Directives No February 18 3:46pm Advance Directive Response Recorded Date/ Time Advance Directives No February 18 3:46pm Living Will No December 07, 2020 1 1:55am Do you have a Healthcare Power of Technical Support Engineer? No December 07, 2020 11:55am Advance Directive Response Recorded Date/ Time Living Will No March 18 11:00am Do you have a Healthcare Power of Technical Support Engineer? No March 18, 2025 11:00am Advance Directives No March 18, 2025 11:00am Advance Directive Response Recorded Date/ Time Living Will No April 01 11:55am Do you have a Healthcare Power of Technical Support Engineer? No April 01, 2025 11:55am Advance Directives No March 11:55am Advance Directive Response Recorded Date/ Time Living Will No April 08, 2025 10:25am Do you have a Healthcare Power of Technical Support Engineer? No April 08, 2025 10:25am Advance Directives No March 10:25am Advance Directive Response Recorded Date/ Time Living Will No April 15, 2025 11:00am Do you have a Healthcare Power of Technical Support Engineer? No April 15, 2025 11:00am Advance Directives No March 11:00am Advance Directive Response Recorded Date/ Time Living Will No April 29 8:48am Do you have a Healthcare Power of Technical Support Engineer? 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 Malignant neoplasm of ovary (HCC) ? Secondary malignant neoplasm of omentum (HCC) ? Postoperative state Surgical Operations & Procedures: NUSRAT, BSO, omentectomy, debulking Consultations: none Pertinent Findings & Procedures: Britta Young is a 64 y.o. female admitted for postoperative care. She underwent the above procedure on 09/10/2020. Hospital course normal, discharged home on POD#2 after meeting all postoperative milestones. She was sent with 28 days of Eliquis for VTE ppx. Follow up in the office at previously scheduled appointment. Discharge instructions reviewed and questions answered. Course of patient: normal Discharge to: Home Wound Care: keep wound clean and dry Recommendat (more content not included)... Note Discharge Summary Britta Arreola ight : 1955 ADMIT DATE: 09/14/2020 DISCHARGE DATE: 09/25/2020 PRIMARY CARE PHYSICIAN: EFEWONGBE OLEGHE VISIT STATUS: Admission CODE STATUS: Full Code DISCHARGE DIAGNOSES: Active Problems: Hematemesis Coffee ground emesis Chronic anticoagulation Partial small bowel obstruction (HCC) Abnormal CT scan Superior mesenteric artery aneurysm (HCC) Ileus (HCC) Abnormal x-ray of abdomen Resolved Problems: * No resolved hospital problems. * 1. s/p SMA ligation/postop ileus: 2. Delirium: 3. RUI on CKD3: resolved 4. HTN/HLD: improved 5. UTI: 6. Hematemesis: 7. Hx stage IV ovarian CA: 8. Hx GERD: Hx asthma/CARLA: Obesity/Morbid obesity - with likely obesity hypoventilation syndrome concern for Malnutrition unspecified HOSPITAL COURSE: HPI Britta Garcia is a 64 yo F PMHx of CARLA on CPAP, GERD, CKD, stage IV A ovarian cancer s/p NUSRAT, BSO, omentectomy, and radial debulking on 09/10/20 (Dr. Carey), HLD/HTN. Admitted on 09/14 for persistent n/v of BRB that tu (more content not included)... Chief Complaint and Reason for Visit Chief Complaint FOLLOW UP 3MO LABS ACUTE-MENTAL STATUS CHANGES METAL STATUS CHANGE 2WKS LABS REVIEW MRI STAGING LEFT OVARIAN CA Reason for Visit Chronic kidney disea se, stage III (moderate) GERD (gastroesophageal reflux disease) Hypertension Type 2 diabetes mellitus MGUS (monoclonal gammopathy of unknown significance) Ovarian cancer Memory change MGUS (monoclonal gammopathy of unknown significance) Ovarian cancer Ischemic brain damage MGUS (monoclonal gammopathy of unknown significance) Ovarian cancer Chemotherapy management, encounter for Dehydration Diarrhea due to drug Encounter for education Hypokalemia Hypomagnesemia Iron deficiency anemia Ovarian mass, left Edema of left lower extremity Mass of peritoneum Ovarian cancer Chief Complaint 6 M FOLLOW UP 2 MONTH, LABS port draw 8WKS LABS SWELLING Reason for Visit CKD (chronic kidney disease), stage IV GERD (gastroesophageal reflux disease) Hypertension Ovarian cancer Type 2 diabetes mellitus Anemia MGUS (monoclonal gammopathy of unknown significance) Ovarian cancer Chemotherapy management, encounter for Dehydration Diarrhea due to drug Encounter for education Hypomagnesemia Iron deficiency anemia Ovarian mass, left Edema of left lower extremity Mass of peritoneum Ovarian cancer Hypokalemia Swelling of lower leg Anemia MGUS (monoclonal gammopathy of unknown significance) Ovarian cancer Chief Complaint Admit Date 6 M FU September 03, 2024 2 :28pm 12WKS LABS September 10, 2024 12:02pm RUI, CHF September 26, 2024 2:37pm RUI, CHF September 26, 2024 2:46pm RUI, CHF September 27, 2024 7:49 am RUI, CHF September 28, 2024 10:5 4am RUI, CHF September 29, 2024 10:0 1am RUI, CHF September 30, 2024 10:1 8am port draw December 25, 2024 1:30p m F/U - LABS December 25, 2024 1:34p m Reason for Visit Admit Date First degree burn of left foot September 03, 2024 2:28pm Bilateral lower extremity edema September 03, 2024 2:28pm CKD (chronic kidney disease), stage IV F ebruary 2024 2:28pm Hypertension September 03, 2024 2 :28pm Type 2 diabetes mellitus September 03, 2 025 2:28pm Anemia September 10, 2024 12:02pm MGUS (monoclonal gammopathy of unknown s ignificance) September 10, 2024 12:02pm Ovarian cancer September 10, 2024 12:02pm CHF (congestive heart failure) September 26, 2024 2:37pm Debility September 26, 2024 2:37pm Elevated brain natriuretic peptide (BNP) level September 26, 2024 2:37pm Lymphedema September 26, 2024 2:37pm RUI (acute kidney injury) September 26, 2024 2:37pm Chemotherapy management, encounter for M chrissy 2024 1:30pm Dehydration December 25, 2024 1:30p m Diarrhea due to drug December 25, 2024 1:30 pm Encounter for education December 25, 2024 1 :30pm Hypomagnesemia December 25, 2024 1:30p m Iron deficiency anemia December 25, 2024 1: 30pm Ovarian mass, left December 25, 2024 1:30p m Edema of left lower extremity December 25, 2024 1:30pm Mass of peritoneum December 25, 2024 1:30p m Ovarian cancer December 25, 2024 1:30p m Hypokalemia December 25, 2024 1:30p m Difficulty walking December 25, 2024 1:34p m Anemia December 25, 2024 1:34p m Ovarian cancer December 25, 2024 1:34p m Chief Complaint Admit Date RUI, CHF September 26, 2024 2:37pm RUI, CHF September 26, 2024 2:46pm RUI, CHF September 27, 2024 7:49 am RUI, CHF September 28, 2024 10:5 4am RUI, CHF September 29, 2024 10:0 1am RUI, CHF September 30, 2024 10:1 8am port draw December 25, 2024 1:30p m F/U - LABS December 25, 2024 1:34p m OVARIAN CANCER January 08, 2025 7:51 am Reason for Visit Admit Date CHF (congestive heart failure) September 26, 2024 2:37pm Debility September 26, 2024 2:37pm Elevated brain natriuretic peptide (BNP) level September 26, 2024 2:37pm Lymphedema September 26, 2024 2:37pm RUI (acute kidney injury) September 26, 2024 2:37pm Chemotherapy management, encounter for M ay 2024 1:30pm Dehydration December 25, 2024 1:30p m Diarrhea due to drug December 25, 2024 1:30 pm Encounter for education December 25, 2024 1 :30pm Hypomagnesemia December 25, 2024 1:30p m Iron deficiency anemia December 25, 2024 1: 30pm Ovarian mass, left December 25, 2024 1:30p m Edema of left lower extremity December 25, 2024 1:30pm Mass of peritoneum December 25, 2024 1:30p m Ovarian cancer December 25, 2024 1:30p m Hypokalemia December 25, 2024 1:30p m Difficulty walking December 25, 2024 1:34p m Anemia December 25, 2024 1:34p m Ovarian cancer December 25, 2024 1:34p m Chief Complaint Admit Date RUI, CHF September 26, 2024 2:37pm RUI, CHF September 26, 2024 2:46pm RUI, CHF September 27, 2024 7:49 am RUI, CHF September 28, 2024 10:5 4am RUI, CHF September 29, 2024 10:0 1am RUI, CHF September 30, 2024 10:1 8am port draw December 25, 2024 1:30p m F/U - LABS May 29th, 2025 1:34p m OVARIAN CANCER January 08, 2025 7:51 am 3WKS LABS PRIOR January 13, 2025 3:17 pm Reason for Visit Admit Date CHF (congestive heart failure) September 26, 2024 2:37pm Debility September 26, 2024 2:37pm Elevated brain natriuretic peptide (BNP) level September 26, 2024 2:37pm Lymphedema September 26, 2024 2:37pm RUI (acute kidney injury) September 26, 2024 2:37pm Chemotherapy management, encounter for M ay 2024 1:30pm Dehydration December 25, 2024 1:30p m Diarrhea due to drug December 25, 2024 1:30 pm Encounter for education December 25, 2024 1 :30pm Hypomagnesemia December 25, 2024 1:30p m Iron deficiency anemia December 25, 2024 1: 30pm Ovarian mass, left December 25, 2024 1:30p m Edema of left lower extremity December 25, 2024 1:30pm Mass of peritoneum December 25, 2024 1:30p m Ovarian cancer December 25, 2024 1:30p m Hypokalemia December 25, 2024 1:30p m Difficulty walking December 25, 2024 1:34p m Anemia December 25, 2024 1:34p m Ovarian cancer December 25, 2024 1:34p m Difficulty walking January 13, 2025 3:17 pm Ovarian cancer January 13, 2025 3:17 pm Chief Complaint Admit Date port draw December 25, 2024 1:30p m F/U - LABS December 25, 2024 1:34p m OVARIAN CANCER January 08, 2025 7:51 am 3WKS LABS PRIOR January 13, 2025 3:17 pm REVIEW PET NO LABS March 03, 2025 1:1 1pm Reason for Visit Admit Date Chemotherapy management, encounter for M ay 2024 1:30pm Dehydration December 25, 2024 1:30p m Diarrhea due to drug December 25, 2024 1:30 pm Encounter for education December 25, 2024 1 :30pm Hypomagnesemia December 25, 2024 1:30p m Iron deficiency anemia December 25, 2024 1: 30pm Ovarian mass, left December 25, 2024 1:30p m Edema of left lower extremity December 25, 2024 1:30pm Mass of peritoneum December 25, 2024 1:30p m Ovarian cancer December 25, 2024 1:30p m Hypokalemia December 25, 2024 1:30p m Difficulty walking December 25, 2024 1:34p m Anemia December 25, 2024 1:34p m Ovarian cancer December 25, 2024 1:34p m Difficulty walking January 13, 2025 3:17 pm Ovarian cancer January 13, 2025 3:17 pm Difficulty walking March 03, 2025 1:1 1pm Ovarian cancer March 03, 2025 1:1 1pm Chief Complaint Admit Date F/U - LABS December 25, 2024 1:34p m OVARIAN CANCER January 08, 2025 7:51 am 3WKS LABS PRIOR January 13, 2025 3:17 pm REVIEW PET NO LABS March 03, 2025 1:1 1pm E-ORDER, PAIN IN BOTH KNEES March 03, 2025 2:25pm port draw March 03, 2025 3:0 0pm Reason for Visit Admit Date Difficulty walking December 25, 2024 1:34p m Anemia December 25, 2024 1:34p m Ovarian cancer December 25, 2024 1:34p m Difficulty walking January 13, 2025 3:17 pm Ovarian cancer January 13, 2025 3:17 pm Difficulty walking March 03, 2025 1:1 1pm Ovarian cancer March 03, 2025 1:1 1pm Chemotherapy management, encounter for A ugust 2024 3:00pm Dehydration March 03, 2025 3:0 0pm Diarrhea due to drug March 03, 2025 3: 00pm Encounter for education March 03, 2025 3:00pm Hypomagnesemia March 03, 2025 3:0 0pm Iron deficiency anemia March 03, 2025 3:00pm Ovarian mass, left March 03, 2025 3:0 0pm Edema of left lower extremity February 3:00pm Mass of peritoneum March 03, 2025 3:0 0pm Ovarian cancer March 03, 2025 3:0 0pm Hypokalemia March 03, 2025 3:0 0pm Chief Complaint Admit Date F/U - LABS December 25, 2024 1:34p m OVARIAN CANCER January 08, 2025 7:51 am 3WKS LABS PRIOR January 13, 2025 3:17 pm REVIEW PET NO LABS March 03, 2025 1:1 1pm E-ORDER, PAIN IN BOTH KNEES March 03, 2025 2:25pm port draw March 03, 2025 3:0 0pm 3 M FOLLOW UP March 16, 2025 2: 00pm Chief Complaint Admit Date F/U - LABS December 25, 2024 1:34p m OVARIAN CANCER January 08, 2025 7:51 am 3WKS LABS PRIOR January 13, 2025 3:17 pm REVIEW PET NO LABS March 03, 2025 1:1 1pm E-ORDER, PAIN IN BOTH KNEES March 03, 2025 2:25pm 3 M FOLLOW UP March 16, 2025 2: 00pm 2WKS LABS PRIOR CHEMO ED NEW START Augus 2024 8:43am port draw March 18, 2025 9: 45am Reason for Visit Admit Date Difficulty walking December 25, 2024 1:34p m Anemia December 25, 2024 1:34p m Ovarian cancer December 25, 2024 1:34p m Difficulty walking January 13, 2025 3:17 pm Ovarian cancer January 13, 2025 3:17 pm Difficulty walking March 03, 2025 1:1 1pm Ovarian cancer March 03, 2025 1:1 1pm Bilateral leg weakness March 16, 2025 2:00pm Bilateral lower extremity edema February [id number] 2:00pm Hypertension March 16, 2025 2: 00pm Knee osteoarthritis March 16, 2025 2: 00pm Difficulty walking March 18, 2025 8: 43am Ovarian cancer March 18, 2025 8: 43am Chemotherapy management, encounter for A ugust 2024 9:45am Dehydration March 18, 2025 9: 45am Diarrhea due to drug March 18, 2025 9 :45am Encounter for education March 18 9:45am Hypomagnesemia March 18, 2025 9: 45am Iron deficiency anemia March 18, 2025 9:45am Ovarian mass, left March 18, 2025 9: 45am Edema of left lower extremity February 9:45am Mass of peritoneum March 18, 2025 9: 45am Ovarian cancer March 18, 2025 9: 45am Hypokalemia March 18, 2025 9: 45am Chief Complaint Admit Date F/U - LABS December 25, 2024 1:34p m OVARIAN CANCER January 08, 2025 7:51 am 3WKS LABS PRIOR January 13, 2025 3:17 pm REVIEW PET NO LABS March 03, 2025 1:1 1pm E-ORDER, PAIN IN BOTH KNEES March 03, 2025 2:25pm 3 M FOLLOW UP March 16, 2025 2: 00pm 2WKS LABS PRIOR CHEMO ED NEW START Augus t 2024 8:43am port draw March 25, 2025 8: 15am 1WK LABS [place] March 25, 2025 8: 38am Reason for Visit Admit Date Difficulty walking December 25, 2024 1:34p m Anemia December 25, 2024 1:34p m Ovarian cancer December 25, 2024 1:34p m Difficulty walking January 13, 2025 3:17 pm Ovarian cancer January 13, 2025 3:17 pm Difficulty walking March 03, 2025 1:1 1pm Ovarian cancer March 03, 2025 1:1 1pm Bilateral leg weakness March 16, 2025 2:00pm Bilateral lower extremity edema February [id number] 2:00pm Hypertension March 16, 2025 2: 00pm Knee osteoarthritis March 16, 2025 2: 00pm Chemotherapy management, encounter for A ugust 2024 8:43am Encounter for education March 18 8:43am Anemia March 18, 2025 8: 43am Ovarian cancer March 18, 2025 8: 43am Chemotherapy management, encounter for A ugust 2024 8:15am Dehydration March 25, 2025 8: 15am Diarrhea due to drug March 25, 2025 8 :15am Encounter for education March 25 8:15am Hypomagnesemia March 25, 2025 8: 15am Iron deficiency anemia March 25, 2025 8:15am Ovarian mass, left March 25, 2025 8: 15am Edema of left lower extremity February 8:15am Mass of peritoneum March 25, 2025 8: 15am Ovarian cancer March 25, 2025 8: 15am Hypokalemia March 25, 2025 8: 15am Chemotherapy management, encounter for A ugust 2024 8:38am Ovarian cancer March 25, 2025 8: 38am Chief Complaint Admit Date F/U - LABS December 25, 2024 1:34p m OVARIAN CANCER January 08, 2025 7:51 am 3WKS LABS PRIOR January 13, 2025 3:17 pm REVIEW PET NO LABS March 03, 2025 1:1 1pm E-ORDER, PAIN IN BOTH KNEES March 03, 2025 2:25pm 3 M FOLLOW UP March 16, 2025 2: 00pm 2WKS LABS PRIOR CHEMO ED NEW START Augus t 2024 8:43am 1WK LABS [place] March 25, 2025 8: 38am port draw April 08, 2025 8:15am 1WK LABS [place] April 08, 2025 8:20am Reason for Visit Admit Date Difficulty walking December 25, 2024 1:34p m Anemia December 25, 2024 1:34p m Ovarian cancer December 25, 2024 1:34p m Difficulty walking January 13, 2025 3:17 pm Ovarian cancer January 13, 2025 3:17 pm Difficulty walking March 03, 2025 1:1 1pm Ovarian cancer March 03, 2025 1:1 1pm Bilateral leg weakness March 16, 2025 2:00pm Bilateral lower extremity edema February [id number] 2:00pm Hypertension March 16, 2025 2: 00pm Knee osteoarthritis March 16, 2025 2: 00pm Chemotherapy management, encounter for A ugust 2024 8:43am Encounter for education March 18 8:43am Anemia March 18, 2025 8: 43am Ovarian cancer March 18, 2025 8: 43am Chemotherapy management, encounter for A ugust 2024 8:38am Ovarian cancer March 25, 2025 8: 38am Chemotherapy management, encounter for S eptember 2024 8:15am Dehydration April 08, 2025 8:15am Diarrhea due to drug April 08 8:15am Encounter for education April 08, 2025 8:15am Hypomagnesemia April 08, 2025 8:15am Iron deficiency anemia April 08, 2 025 8:15am Ovarian mass, left April 08, 2025 8:15am Edema of left lower extremity April 08, 2025 8:15am Mass of peritoneum April 08, 2025 8:15am Ovarian cancer April 08, 2025 8:15am Hypokalemia April 08, 2025 8:15am Chemotherapy management, encounter for S eptember 2024 8:20am Ovarian cancer April 08, 2025 8:20am Chief Complaint Admit Date F/U - LABS December 25, 2024 1:34p m OVARIAN CANCER January 08, 2025 7:51 am 3WKS LABS PRIOR January 13, 2025 3:17 pm REVIEW PET NO LABS March 03, 2025 1:1 1pm E-ORDER, PAIN IN BOTH KNEES March 03, 2025 2:25pm 3 M FOLLOW UP March 16, 2025 2: 00pm 2WKS LABS PRIOR CHEMO ED NEW START Augus t 2024 8:43am 1WK LABS [place] March 25, 2025 8: 38am 1WK LABS [place] April 08, 2025 8:20am port draw April 15, 2025 7:30am 3WKS LABS [place] April 15, 2025 7:37am Reason for Visit Admit Date Difficulty walking December 25, 2024 1:34p m Anemia December 25, 2024 1:34p m Ovarian cancer December 25, 2024 1:34p m Difficulty walking January 13, 2025 3:17 pm Ovarian cancer January 13, 2025 3:17 pm Difficulty walking March 03, 2025 1:1 1pm Ovarian cancer March 03, 2025 1:1 1pm Bilateral leg weakness March 16, 2025 2:00pm Bilateral lower extremity edema February [id number] 2:00pm Hypertension March 16, 2025 2: 00pm Knee osteoarthritis March 16, 2025 2: 00pm Chemotherapy management, encounter for A ugust 2024 8:43am Encounter for education March 18 8:43am Anemia March 18, 2025 8: 43am Ovarian cancer March 18, 2025 8: 43am Chemotherapy management, encounter for A ugust 2024 8:38am Ovarian cancer March 25, 2025 8: 38am Chemotherapy management, encounter for S eptember 2024 8:20am Diarrhea due to drug April 08 8:20am Hypomagnesemia April 08, 2025 8:20am Anemia April 08, 2025 8:20am Ovarian cancer April 08, 2025 8:20am Chemotherapy management, encounter for Gabriella medina 2024 7:30am Dehydration April 15, 2025 7:30am Diarrhea due to drug April 15 7:30am Encounter for education April 15, 2025 7:30am Hypomagnesemia April 15, 2025 7:30am Iron deficiency anemia April 15, 025 7:30am Ovarian mass, left April 15, 2025 7:30am Edema of left lower extremity April 15, 2025 7:30am Mass of peritoneum April 15, 2025 7:30am Ovarian cancer April 15, 2025 7:30am Hypokalemia April 15, 2025 7:30am Chief Complaint Admit Date F/U - LABS December 25, 2024 1:34p m OVARIAN CANCER January 08, 2025 7:51 am 3WKS LABS PRIOR January 13, 2025 3:17 pm REVIEW PET NO LABS March 03, 2025 1:1 1pm E-ORDER, PAIN IN BOTH KNEES March 03, 2025 2:25pm 3 M FOLLOW UP March 16, 2025 2: 00pm 2WKS LABS PRIOR CHEMO ED NEW START Augus t 2024 8:43am 1WK LABS [place] March 25, 2025 8: 38am 1WK LABS [place] April 08, 2025 8:20am port draw April 15, 2025 7:30am 3WKS LABS [place] April 15, 2025 7:37am PROTEIN IN URINE April 16, 2025 12:29pm Reason for Visit Admit Date Difficulty walking December 25, 2024 1:34p m Anemia December 25, 2024 1:34p m Ovarian cancer December 25, 2024 1:34p m Difficulty walking January 13, 2025 3:17 pm Ovarian cancer January 13, 2025 3:17 pm Difficulty walking March 03, 2025 1:1 1pm Ovarian cancer March 03, 2025 1:1 1pm Bilateral leg weakness March 16, 2025 2:00pm Bilateral lower extremity edema February [id number] 2:00pm Hypertension March 16, 2025 2: 00pm Knee osteoarthritis March 16, 2025 2: 00pm Chemotherapy management, encounter for Keren ugjeniffer 2024 8:43am Encounter for education March 18 8:43am Anemia March 18, 2025 8: 43am Ovarian cancer March 18, 2025 8: 43am Chemotherapy management, encounter for A ugust 2024 8:38am Ovarian cancer March 25, 2025 8: 38am Chemotherapy management, encounter for S eptember 2024 8:20am Diarrhea due to drug April 08 8:20am Hypomagnesemia April 08, 2025 8:20am Anemia April 08, 2025 8:20am Ovarian cancer April 08, 2025 8:20am Chemotherapy management, encounter for S eptember 2024 7:30am Dehydration April 15, 2025 7:30am Diarrhea due to drug April 15 7:30am Encounter for education April 15, 2025 7:30am Hypomagnesemia April 15, 2025 7:30am Iron deficiency anemia April 15, 025 7:30am Ovarian mass, left April 15, 2025 7:30am Edema of left lower extremity April 15, 2025 7:30am Mass of peritoneum April 15, 2025 7:30am Ovarian cancer April 15, 2025 7:30am Hypokalemia April 15, 2025 7:30am Chemotherapy management, encounter for S eptember 2024 7:37am Hypomagnesemia April 15, 2025 7:37am Anemia April 15, 2025 7:37am Hypertension April 15, 2025 7:37am Ovarian cancer April 15, 2025 7:37am Hypertension April 16, 2025 12:29pm Chief Complaint Admit Date OVARIAN CANCER January 08, 2025 7:51 am 3WKS LABS PRIOR January 13, 2025 3:17 pm REVIEW PET NO LABS March 03, 2025 1:1 1pm E-ORDER, PAIN IN BOTH KNEES March 03, 2025 2:25pm 3 M FOLLOW UP March 16, 2025 2: 00pm 2WKS LABS PRIOR CHEMO ED NEW START Augus t 2024 8:43am 1WK LABS [place] March 25, 2025 8: 38am 1WK LABS [place] April 08, 2025 8:20am 3WKS LABS [place] April 15, 2025 7:37am PROTEIN IN URINE April 16, 2025 12:29pm 1 WEEK LABS [place] April 22, 2025 12:34pm port draw April 22, 2025 1:00pm Reason for Visit Admit Date Difficulty walking January 13, 2025 3:17 pm Ovarian cancer January 13, 2025 3:17 pm Difficulty walking March 03, 2025 1:1 1pm Ovarian cancer March 03, 2025 1:1 1pm Bilateral leg weakness March 16, 2025 2:00pm Bilateral lower extremity edema February [id number] 2:00pm Hypertension March 16, 2025 2: 00pm Knee osteoarthritis March 16, 2025 2: 00pm Chemotherapy management, encounter for A ugust 2024 8:43am Encounter for education March 18 8:43am Anemia March 18, 2025 8: 43am Ovarian cancer March 18, 2025 8: 43am Chemotherapy management, encounter for A ugust 2024 8:38am Ovarian cancer March 25, 2025 8: 38am Chemotherapy management, encounter for S eptember 2024 8:20am Diarrhea due to drug April 08 8:20am Hypomagnesemia April 08, 2025 8:20am Anemia April 08, 2025 8:20am Ovarian cancer April 08, 2025 8:20am Chemotherapy management, encounter for S eptember 2024 7:37am Hypomagnesemia April 15, 2025 7:37am Anemia April 15, 2025 7:37am Hypertension April 15, 2025 7:37am Ovarian cancer April 15, 2025 7:37am Hypertension April 16, 2025 12:29pm Chemotherapy management, encounter for S eptember 2024 12:34pm Hypomagnesemia April 22, 2025 12:34pm Anemia April 22, 2025 12:34pm Hypertension April 22, 2025 12:34pm Ovarian cancer April 22, 2025 12:34pm Chemotherapy management, encounter for S eptember 2024 1:00pm Dehydration April 22, 2025 1:00pm Diarrhea due to drug April 22 1:00pm Encounter for education April 22, 2025 1:00pm Hypomagnesemia April 22, 2025 1:00pm Iron deficiency anemia April 22, 2 025 1:00pm Ovarian mass, left April 22, 2025 1:00pm Edema of left lower extremity April 22, 2025 1:00pm Mass of peritoneum April 22, 2025 1:00pm Ovarian cancer April 22, 2025 1:00pm Hypokalemia April 22, 2025 1:00pm Chief Complaint Admit Date OVARIAN CANCER January 08, 2025 7:51 am [facility] PRIOR January 13, 2025 3:17 pm REVIEW PET NO LABS March 03, 2025 1:1 1pm E-ORDER, PAIN IN BOTH KNEES March 03, 2025 2:25pm 3 M FOLLOW UP March 16, 2025 2: 00pm [facility] PRIOR CHEMO ED NEW START Augus t 2024 8:43am [facility] [place] March 25, 2025 8: 38am [facility] [place] April 08, 2025 8:20am [facility] [place] April 15, 2025 7:37am PROTEIN IN URINE April 16, 2025 12:29pm [facility] TAXOL April 22, 2025 12:34pm [facility] [place] May 06, 2025 8: 13am MVASI/Taxol/Carbo May 06, 2025 8: 15am Reason for Visit Admit Date Difficulty walking January 13, 2025 3:17 pm Ovarian cancer January 13, 2025 3:17 pm Difficulty walking March 03, 2025 1:1 1pm Ovarian cancer March 03, 2025 1:1 1pm Bilateral leg weakness March 16, 2025 2:00pm Bilateral lower extremity edema February [id number] 2:00pm Hypertension March 16, 2025 2: 00pm Knee osteoarthritis March 16, 2025 2: 00pm Chemotherapy management, encounter for A ugust 2024 8:43am Encounter for education March 18 8:43am Anemia March 18, 2025 8: 43am Ovarian cancer March 18, 2025 8: 43am Chemotherapy management, encounter for A ugust 2024 8:38am Ovarian cancer March 25, 2025 8: 38am Chemotherapy management, encounter for Gabriella medina 2024 8:20am Diarrhea due to drug April 08 8:20am Hypomagnesemia April 08, 2025 8:20am Anemia April 08, 2025 8:20am Ovarian cancer April 08, 2025 8:20am Chemotherapy management, encounter for S eptember 2024 7:37am Hypomagnesemia April 15, 2025 7:37am Anemia April 15, 2025 7:37am Hypertension April 15, 2025 7:37am Ovarian cancer April 15, 2025 7:37am Hypertension April 16, 2025 12:29pm Chemotherapy management, encounter for S eptember 2024 12:34pm Hypomagnesemia April 22, 2025 12:34pm Anemia April 22, 2025 12:34pm Hypertension April 22, 2025 12:34pm Ovarian cancer April 22, 2025 12:34pm Chemotherapy management, encounter for O ctober 2024 8:13am Hypomagnesemia May 06, 2025 8: 13am Anemia May 06, 2025 8: 13am Ovarian cancer May 06, 2025 8: 13am Chemotherapy management, encounter for O ctober 2024 8:15am Dehydration May 06, 2025 8: 15am Diarrhea due to drug May 06, 2025 8 :15am Encounter for education May 06 8:15am Hypomagnesemia May 06, 2025 8: 15am Iron deficiency anemia May 06, 2025 8:15am Ovarian mass, left May 06, 2025 8: 15am Edema of left lower extremity April 8:15am Mass of peritoneum May 06, 2025 8: 15am Ovarian cancer May 06, 2025 8: 15am Hypokalemia May 06, 2025 8: 15am Additional Source Comments Ordered Prescriptions (unrec ognized section and content) Prescription Sig Dispensed Refills Start Date End Da te oxyCODONE (ROXICODONE) 5 MG immediate release tabletIndications:Post-op pain Take 1 tablet by mouth every 4 hours as needed for Pain for up to 5 days. 28 tablet 0 09/12/2020 09/17/2020 apixaban (ELIQUIS) 2.5 MG TABS tablet Take 1 tablet by mouth 2 times daily for 28 days 56 tablet 0 09/12/2020 10/10/2020 INFORMATION SOURCE (unrecogn ized section and content) DATE CREATED AUTHOR 11/10/2020 [facility] DATE CREATED AUTHOR AUTHOR'S ORGANIZ ATION 12/27/2023 [facility] DATE CREATED AUTHOR AUTHOR'S ORGANIZ ATION 02/15/2025 [facility] DATE CREATED AUTHOR AUTHOR'S ORGANIZ ATION 06/09/2025 [facility] Source Comments (unrecognize d section and content) In the event this informatio n is protected by the Federal Confidentiality of Alcohol and Drug Abuse Patient Records regulations: The Federal rules restrict any use of the information to criminally investigate or prosecute any alcohol or drug abuse patient.[facility] the event this information is protected by the Federal Confidentiality of Alcohol and Drug Abuse Patient Records regulations: The Federal rules restrict any use of the information to criminally investigate or prosecute any alcohol or drug abuse patient.[facility] the event this information is protected by the Federal Confidentiality of Alcohol and Drug Abuse Patient Records regulations: The Federal rules restrict any use of the information to criminally investigate or prosecute any alcohol or drug abuse patient.[facility] the event this information is protected by the Federal Confidentiality of Alcohol and Drug Abuse Patient Records regulations: The Federal rules restrict any use of the information to criminally investigate or prosecute any alcohol or drug abuse patient.[facility] Hospital[facility] the event this information is protected by the Federal Confidentiality of Alcohol and Drug Abuse Patient Records regulations: The Federal rules restrict any use of the information to criminally investigate or prosecute any alcohol or drug abuse patient.[facility] the event this information is protected by the Federal Confidentiality of Alcohol and Drug Abuse Patient Records regulations: The Federal rules restrict any use of the information to criminally investigate or prosecute any alcohol or drug abuse patient.[facility] the event this information is protected by the Federal Confidentiality of Alcohol and Drug Abuse Patient Records regulations: The Federal rules restrict any use of the information to criminally investigate or prosecute any alcohol or drug abuse patient.[facility] Reason for Visit (unrecogniz ed section and content) Reason Comments Yearly Exam c/o foul vaginal odo r Reason Comments Results Reason Comments Mouth/Lip Problem Sore mouth-started a fter chemo x 1 week Reason Comments New Patient follow up from [facility] stay pt having a hard time walking Reason Comments New Patient Leg weakness x 2 mon ths. 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 DR Kelley MCDONNELL- PERIUMBILICAL , INCISIONAL HERNIA Specialty Diagnoses / Procedures Referred By Na wang Referred To Contact General Surgery Diagnoses Periumbilical pain Incisional hernia with obstruction, without gangrene Procedures MT ELECTIVE SURGERY Francesco Li MD [address] [address] Phone: tel: fax: Juan Brice MD [address] [facility] [address] [place] [address] Phone: tel: fax: Referral ID Status Reason Start Date Expiration Date Visits Re quested Visits Authorized [id number] Closed 11/21/2024 11/21/2025 1 1 Reason Onset Date Comments Results 12/31/2024 Reason Onset Date Comments Other 12/29/2024 MRi Reason Onset Date Comments Results 01/01/2025 CT Reason Comments Follow-up F/U CT RESULTS, DISC USS HERNIA REPAIR Reason Comments Ovarian Cancer Specialty Diagnoses / Procedures Referred By Na wang Referred To Contact Oncology / Gynecologic Oncology Diagnoses Incisional hernia, without obstruction or gangrene History of ovarian cancer Abnormal CT of the abdomen Procedures MT OFFICE/OUTPATIENT NEW HIGH MDM 60 MINUTES Eryn Lutz PA-C [address] [facility] [address] [place] [address] Phone: tel: fax: Aravind Carey MD [address] [facility] [address] [place] [address] Phone: tel: fax: Referral ID Status Reason Start Date Expiration Date Visits Requested Visits Authorized [id number] Pending Review Specialty Services Required 01/15/2025 01/15/2026 1 1 Care Teams (unrecognized sec tion and content) Artillery Specialist Relationship Specialty Start Date End Date Stephie Velarde MD [address] [place] [address] PCP - General Internal Medicine 03/26/19 Artillery Specialist Relationship Specialty Start Date End Date Stephie Velarde MD [address] [place] [address] PCP - General Internal Medicine 03/26/19 Artillery Specialist Relationship Specialty Start Date End Date Stephie Velarde MD [address] [place] [address] PCP - General Internal Medicine 03/26/19 Team Status: Active Member Role Status Dates Dr. Stephie Velarde MD Family Provider Active Dr. Stephie Velarde MD Primary Care Provider Active Team Status: Inactive Member Role Status Dates Dr. Stephie Velarde MD Primary Care Provider, Refer ring Provider Active Dr. David Corral MD Attending Provider Active Team Status: Inactive Member Role Status Dates Dr. Stephie Velarde MD Primary Care P andrade, Attending Provider, Referring Provider Active Team Status: Inactive Member Role Status Dates Dr. Stephie Velarde MD Primary Care Provider Active Dr. David Corral MD Attending Provider Active Team Status: Active Member Role Status Dates Dr. Stephie Velarde MD Primary Care Provider, Refer ring Provider Active Dr. David Corral MD Attending Provider Active Team Status: Inactive Member Role Status Dates Dr. Stephie Velarde MD Primary Care Provider Active Dr. David Corral MD Attending Provider, Referring Pro vider Active Artillery Specialist Relationship Specialty Start Date End Date Stephie Velarde MD [address] [place] [address] PCP - General Internal Medicine 03/26/19 Artillery Specialist Relationship Specialty Start Date End Date Stephie Velarde MD [address] [place] [place], [place] [address] PCP - General Internal Medicine 03/26/19 Team Status: Active Member Role Status Dates Dr. Stephie Velarde MD Primary Care Provider Active Dr. Gary Hussein MD Attending Provider Active Dr. David Corral MD Referring Provider Active Artillery Specialist Relationship Specialty Start Date End Date Stephie Velarde MD [address] [place] [address] PCP - General Internal Medicine 03/26/19 Artillery Specialist Relationship Specialty Start Date End Date Stephie Velarde MD [address] [place] [address] PCP - General Internal Medicine 03/26/19 Artillery Specialist Relationship Specialty Start Date End Date Ktaie Velarde MD [address] [place] [address] PCP - General 09/07/20 Artillery Specialist Relationship Specialty Start Date End Date Katie Velarde MD [address] [place] [address] PCP - General 09/07/20 Artillery Specialist Relationship Specialty Start Date End Date Katie Velarde MD [address] [place] [address] PCP - General 09/07/20 Artillery Specialist Relationship Specialty Start Date End Date Katie Velarde MD [address] [place] [address] PCP - General 09/07/20 Team Status: Active Member Role Status Dates Dr. Stephie Velarde MD Primary Care Provider Active Team Status: Inactive Member Role Status Dates Dr. Stephie Velarde MD Primary Care Provider Active Start: September 03, 2024 End: September 03, 2024 Dr. Stephie Velarde MD Attending Provider Active Start: September 03, 2024 End: September 03, 2024 Dr. Stephie Velarde MD Referring Provider Active Start: September 03, 2024 End: September 03, 2024 Team Status: Inactive Member Role Status Dates Dr. Stephie Velarde MD Primary Care Provider Active Start: September 10, 2024 End: September 10, 2024 Dr. Stephie Velarde MD Referring Provider Active Start: September 10, 2024 End: September 10, 2024 Berna Pierson NP, LEAD ATG DEVELOPER-C Attending Provider Active Start: September 10, 2024 End: September 10, 2024 Team Status: Inactive Member Role Status Dates Dr. Stephie Velarde MD Primary Care Provider Active Start: September 26, 2024 End: September 30, 2024 Dr. Victor Manuel Winkler DO Emergency Provider Active Start: September 26, 2024 End: September 30, 2024 Dr. Chemo Ramirez DO Admit Provider Active Star t: September 26, 2024 End: September 30, 2024 Dr. Chemo Ramirez DO Other Provider Active Star t: September 26, 2024 End: September 30, 2024 Dr. Jose Fernandez MD Attending Provider Active Start: September 26, 2024 End: September 30, 2024 Dr. Diana Crowell MD Other Provider Active St art: September 26, 2024 End: September 30, 2024 Team Status: Active Member Role Status Dates Dr. Stephie Velarde MD Primary Care Provider Active Start: September 26, 2024 Dr. Victro Manuel Winkler DO Emergency Provider Active Start: September 26, 2024 Dr. Chemo Ramirez DO Admit Provider Active Star t: September 26, 2024 Dr. Chemo Ramirez DO Attending Provider Active Start: September 26, 2024 Dr. Chemo Ramirez DO Other Provider Active Star t: September 26, 2024 Team Status: Active Member Role Status Dates Dr. Stephie Velarde MD Primary Care Provider Active Start: September 27, 2024 Dr. Victor Manuel Winkler DO Emergency Provider Active Start: September 27, 2024 Dr. Chemo Ramirez DO Admit Provider Active Star t: September 27, 2024 Dr. Chemo Ramirez DO Other Provider Active Star t: September 27, 2024 Dr. Diana Crowell MD Attending Provider Active Start: September 27, 2024 Dr. Diana Crowell MD Other Provider Active St art: September 27, 2024 Team Status: Active Member Role Status Dates Dr. Stephie Velarde MD Primary Care Provider Active Start: September 27, 2024 Dr. Jerome Loja MD Attending Provider Activ e Start: September 27, 2024 Team Status: Active Member Role Status Dates Dr. Stephie Velarde MD Primary Care Provider Active Start: September 28, 2024 Dr. Victor Manuel Winkler DO Emergency Provider Active Start: September 28, 2024 Dr. Chemo Ramirez DO Admit Provider Active Star t: September 28, 2024 Dr. Chemo Ramirez DO Other Provider Active Star t: September 28, 2024 Dr. Diana Crowell MD Attending Provider Active Start: September 28, 2024 Dr. Diana Crowell MD Other Provider Active St art: September 28, 2024 Team Status: Active Member Role Status Dates Dr. Stephie Velarde MD Primary Care Provider Active Start: September 29, 2024 Dr. Victor Manuel Winkler DO Emergency Provider Active Start: September 29, 2024 Dr. Chemo Ramirez DO Admit Provider Active Star t: September 29, 2024 Dr. Chemo Ramirez DO Other Provider Active Star t: September 29, 2024 Dr. Jose Fernandez MD Attending Provider Active Start: September 29, 2024 Dr. Jose Fernandez MD Other Provider Active Start: September 29, 2024 Dr. Diana Crowell MD Other Provider Active St art: September 29, 2024 Team Status: Active Member Role Status Dates Dr. Stephie Velarde MD Primary Care Provider Active Start: September 30, 2024 Dr. Victor Manuel Winkler DO Emergency Provider Active Start: September 30, 2024 Dr. Chemo Ramirez DO Admit Provider Active Star t: September 30, 2024 Dr. Chemo Ramirez DO Other Provider Active Star t: September 30, 2024 Dr. Jose Fernandez MD Attending Provider Active Start: September 30, 2024 Dr. Jose Fernandez MD Other Provider Active Start: September 30, 2024 Dr. Diana Crowell MD Other Provider Active St art: September 30, 2024 Team Status: Active Member Role Status Dates Dr. Stephie Velarde MD Primary Care Provider Active Start: December 25, 2024 Dr. Stephie Velarde MD Referring Provider Active Start: December 25, 2024 Dr. David Corral MD Attending Provider Active S tart: December 25, 2024 Team Status: Inactive Member Role Status Dates Dr. Stephie Velarde MD Primary Care Provider Active Start: December 25, 2024 End: December 25, 2024 Dr. Stephie Velarde MD Referring Provider Active Start: December 25, 2024 End: December 25, 2024 Dr. David Corral MD Attending Provider Active S tart: December 25, 2024 End: December 25, 2024 Artillery Specialist Relationship Specialty Start Date End Date Katie Velarde MD [address] [place] [address] PCP - General 09/07/20 Artillery Specialist Relationship Specialty Start Date End Date Katie Velarde MD [address] [place] [address] PCP - General 09/07/20 Artillery Specialist Relationship Specialty Start Date End Date Katie Velarde MD [address] [place] [address] PCP - General 09/07/20 Artillery Specialist Relationship Specialty Start Date End Date Katie Velarde MD [address] [place] [address] PCP - General 09/07/20 Team Status: Inactive Member Role Status Dates Dr. Stephie Velarde MD Primary Care Provider Active Start: January 08, 2025 End: January 08, 2025 Dr. David Corral MD Attending Provider Active S tart: January 08, 2025 End: January 08, 2025 Dr. David Corral MD Referring Provider Active S tart: January 08, 2025 End: January 08, 2025 Team Status: Inactive Member Role Status Dates Dr. Stephie Velarde MD Primary Care Provider Active Start: January 13, 2025 End: January 13, 2025 Dr. Stephie Velarde MD Referring Provider Active Start: January 13, 2025 End: January 13, 2025 Dr. David Corral MD Attending Provider Active S tart: January 13, 2025 End: January 13, 2025 Artillery Specialist Relationship Specialty Start Date End Date Katie Velarde MD [address] [place] [address] PCP - General 09/07/20 Artillery Specialist Relationship Specialty Start Date End Date Katie Velarde MD [address] [place] [address] PCP - General 09/07/20 Aravind Carey MD [address] [place] [address] [place] [address] Consulting Physician Gynecologic Oncology 01/20/25 Artillery Specialist Relationship Specialty Start Date End Date Katie Velarde MD [address] [place] [address] PCP - General 09/07/20 Aravind Carey MD [address] [place] [address] [address] [place] [address] Consulting Physician Gynecologic Oncology 01/20/25 Artillery Specialist Relationship Specialty Start Date End Date Katie Velarde MD [address] [facility] [address] [place] [address] PCP - General 09/07/20 Aravind Carey MD [address] [facility] [address] [place] [address] Consulting Physician Gynecologic Oncology 01/20/25 Artillery Specialist Relationship Specialty Start Date End Date Katie Velarde MD [address] [facility] [address] [place] [address] PCP - General 09/07/20 Aravind Carey MD [address] [facility] [address] [place] [address] Consulting Physician Gynecologic Oncology 01/20/25 Team Status: Active Member Role/Relationship Status Dates Dr. Stephie Velarde MD Primary Care Provider Active Team Status: Active Member Role/Relationship Status Dates Dr. Stephie Velarde MD Primary Care Provider Active Start: December 25, 2024 Dr. Stephie Velarde MD Referring Provider Active Start: December 25, 2024 Dr. David Corral MD Attending Provider Active S tart: December 25, 2024 Team Status: Inactive Member Role/Relationship Status Dates Dr. Stephie Velarde MD Primary Care Provider Active Start: December 25, 2024 End: December 25, 2024 Dr. Stephie Velarde MD Referring Provider Active Start: December 25, 2024 End: December 25, 2024 Dr. David Corral MD Attending Provider Active S tart: December 25, 2024 End: December 25, 2024 Team Status: Inactive Member Role/Relationship Status Dates Dr. Stephie Velarde MD Primary Care Provider Active Start: January 08, 2025 End: January 08, 2025 Dr. David Corral MD Attending Provider Active S tart: January 08, 2025 End: January 08, 2025 Dr. David Corral MD Referring Provider Active S tart: January 08, 2025 End: January 08, 2025 Team Status: Inactive Member Role/Relationship Status Dates Dr. Stephie Velarde MD Primary Care Provider Active Start: January 13, 2025 End: January 13, 2025 Dr. Stephie Velarde MD Referring Provider Active Start: January 13, 2025 End: January 13, 2025 Dr. David Corral MD Attending Provider Active S tart: January 13, 2025 End: January 13, 2025 Team Status: Inactive Member Role/Relationship Status Dates Dr. Stephie Velarde MD Primary Care Provider Active Start: March 03, 2025 End: March 03, 2025 Dr. Stephie Velarde MD Referring Provider Active Start: March 03, 2025 End: March 03, 2025 Dr. 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 David Corral MD Primary Care Provider Active Team Status: Inactive Member Role/Relationship Status Dates Dr. Stephie Velarde MD Primary Care Provider Active Start: December 25, 2024 End: December 25, 2024 Dr. Stephie Velarde MD Referring Provider Active Start: December 25, 2024 End: December 25, 2024 Dr. David Corral MD Attending Provider Active S tart: December 25, 2024 End: December 25, 2024 Team Status: Inactive Member Role/Relationship Status Dates Dr. Stephie Velarde MD Primary Care Provider Active Start: January 08, 2025 End: January 08, 2025 Dr. David Corral MD Attending Provider Active S tart: January 08, 2025 End: January 08, 2025 Dr. David Corral MD Referring Provider Active S tart: January 08, 2025 End: January 08, 2025 Team Status: Inactive Member Role/Relationship Status Dates Dr. Stephie Velarde MD Primary Care Provider Active Start: January 13, 2025 End: January 13, 2025 Dr. Stephie Velarde MD Referring Provider Active Start: January 13, 2025 End: January 13, 2025 Dr. David Corral MD Attending Provider Active S tart: January 13, 2025 End: January 13, 2025 Team Status: Inactive Member Role/Relationship Status Dates Dr. Stephie Velarde MD Primary Care Provider Active Start: March 03, 2025 End: March 03, 2025 Dr. Setphie Velarde MD Referring Provider Active Start: March 03, 2025 End: March 03, 2025 Dr. David Corral MD Attending Provider Active S tart: March 03, 2025 End: March 03, 2025 Team Status: Inactive Member Role/Relationship Status Dates Dr. David Corral MD Primary Care Provider Active Start: March 03, 2025 End: March 03, 2025 Dr. David Corral MD Attending Provider Active S tart: March 03, 2025 End: March 03, 2025 Team Status: Active Member Role/Relationship Status Dates Dr. Stephie Velarde MD Primary Care Provider Active Start: March 03, 2025 Dr. Stephie Velarde MD Referring Provider Active Start: March 03, 2025 Dr. David Corral MD Attending Provider Active S tart: March 03, 2025 Team Status: Inactive Member Role/Relationship Status Dates Dr. Stephie Velarde MD Attending Provider Active Start: March 16, 2025 End: March 16, 2025 Dr. Stephie Velarde MD Referring Provider Active Start: March 16, 2025 End: March 16, 2025 Dr. David Corral MD Primary Care Provider Active Start: March 16, 2025 End: March 16, 2025 Team Status: Inactive Member Role/Relationship Status Dates Dr. Stephie Velarde MD Attending Provider Active Start: March 16, 2025 End: March 16, 2025 Dr. Stephie Velarde MD Referring Provider Active Start: March 16, 2025 End: March 16, 2025 Dr. David Corral MD Primary Care Provider Active Start: March 16, 2025 End: March 16, 2025 Team Status: Inactive Member Role/Relationship Status Dates Berna Pierson LEAD ATG DEVELOPER, LEAD ATG DEVELOPER-C Attending Provider Active Start: March 18, 2025 End: March 18, 2025 Dr. David Corral MD Primary Care Provider Active Start: March 18, 2025 End: March 18, 2025 Dr. David Corral MD Referring Provider Active S tart: March 18, 2025 End: March 18, 2025 Team Status: Active Member Role/Relationship Status Dates Dr. Stephie Velarde MD Primary Care Provider Active Start: March 18, 2025 Dr. Stephie Velarde MD Referring Provider Active Start: March 18, 2025 Berna Pierson LEAD ATG DEVELOPER, LEAD ATG DEVELOPER-C Attending Provider Active Start: March 18, 2025 Team Status: Active Member Role/Relationship Status Dates Dr. Stephie Velarde MD Primary Care Provider Active Start: March 25, 2025 Dr. Stephie Velarde MD Referring Provider Active Start: March 25, 2025 Bernakeren Pierson LEAD ATG DEVELOPER, LEAD ATG DEVELOPER-C Attending Provider Active Start: March 25, 2025 Team Status: Inactive Member Role/Relationship Status Dates Dr. David Corral MD Primary Care Provider Active Start: March 25, 2025 End: March 25, 2025 Dr. David Corral MD Attending Provider Active S tart: March 25, 2025 End: March 25, 2025 Dr. David Corral MD Referring Provider Active S tart: March 25, 2025 End: March 25, 2025 Team Status: Inactive Member Role/Relationship Status Dates Dr. David Corral MD Primary Care Provider Active Start: March 25, 2025 End: March 25, 2025 Dr. David Corral MD Attending Provider Active S tart: March 25, 2025 End: March 25, 2025 Dr. David Corral MD Referring Provider Active S tart: March 25, 2025 End: March 25, 2025 Team Status: Active Member Role/Relationship Status Dates Dr. Stephie Velarde MD Primary Care Provider Active Start: April 08, 2025 Dr. Stephie Velarde MD Referring Provider Active Start: April 08, 2025 Berna Pierson LEAD ATG DEVELOPER, LEAD ATG DEVELOPER-C Attending Provider Active Start: April 08, 2025 Team Status: Inactive Member Role/Relationship Status Dates Berna Pierson LEAD ATG DEVELOPER, LEAD ATG DEVELOPER-C Attending Provider Active Start: April 08, 2025 End: April 08, 2025 Dr. Stephie Velarde MD Primary Care Provider Active Start: April 08, 2025 End: April 08, 2025 Dr. Stephie Velarde MD Referring Provider Active Start: April 08, 2025 End: April 08, 2025 Team Status: Active Member Role/Relationship Status Dates Dr. Stephie Velarde MD Primary care physician Activ e Team Status: Inactive Member Role/Relationship Status Dates Dr. Stephie Velarde MD Primary care physician Activ e Start: December 25, 2024 End: December 25, 2024 Dr. Stephie Velarde MD Referring Provider Active Start: December 25, 2024 End: December 25, 2024 Dr. David Corral MD Attending physician Active Start: December 25, 2024 End: December 25, 2024 Team Status: Inactive Member Role/Relationship Status Dates Dr. Stephie Velarde MD Primary care physician Activ e Start: January 08, 2025 End: January 08, 2025 Dr. David Corral MD Attending physician Active Start: January 08, 2025 End: January 08, 2025 Dr. David Corral MD Referring Provider Active S tart: January 08, 2025 End: January 08, 2025 Team Status: Inactive Member Role/Relationship Status Dates Dr. Stephie Velarde MD Primary care physician Activ e Start: January 13, 2025 End: January 13, 2025 Dr. Stephie Velarde MD Referring Provider Active Start: January 13, 2025 End: January 13, 2025 Dr. David Corral MD Attending physician Active Start: January 13, 2025 End: January 13, 2025 Team Status: Inactive Member Role/Relationship Status Dates Dr. Stephie Velarde MD Primary care physician Activ e Start: March 03, 2025 End: March 03, 2025 Dr. Stephie Velarde MD Referring Provider Active Start: March 03, 2025 End: March 03, 2025 Dr. David Corral MD Attending physician Active Start: March 03, 2025 End: March 03, 2025 Team Status: Inactive Member Role/Relationship Status Dates Dr. David Corral MD Primary care physician Active Start: March 03, 2025 End: March 03, 2025 Dr. David Corral MD Attending physician Active Start: March 03, 2025 End: March 03, 2025 Team Status: Inactive Member Role/Relationship Status Dates Dr. Stephie Velarde MD Attending physician Active Start: March 16, 2025 End: March 16, 2025 Dr. Stephie Velarde MD Referring Provider Active Start: March 16, 2025 End: March 16, 2025 Dr. David Corral MD Primary care physician Active Start: March 16, 2025 End: March 16, 2025 Team Status: Inactive Member Role/Relationship Status Dates Berna Pierson NP LEAD ATG DEVELOPER-C Attending physician Active Start: March 18, 2025 End: March 18, 2025 Dr. David Corral MD Primary care physician Active Start: March 18, 2025 End: March 18, 2025 Dr. David Corral MD Referring Provider Active S tart: March 18, 2025 End: March 18, 2025 Team Status: Inactive Member Role/Relationship Status Dates Dr. David Corrla MD Primary care physician Active Start: March 25, 2025 End: March 25, 2025 Dr. David Corral MD Attending physician Active Start: March 25, 2025 End: March 25, 2025 Dr. David Corral MD Referring Provider Active S tart: March 25, 2025 End: March 25, 2025 Team Status: Inactive Member Role/Relationship Status Dates Berna Pierson NP LEAD ATG DEVELOPER-C Attending physician Active Start: April 08, 2025 End: April 08, 2025 Dr. Stephie Velarde MD Primary care physician Activ e Start: April 08, 2025 End: April 08, 2025 Dr. Stephie Velarde MD Referring Provider Active Start: April 08, 2025 End: April 08, 2025 Team Status: Active Member Role/Relationship Status Dates Dr. Stephie Velarde MD Primary care physician Activ e Start: April 15, 2025 Dr. Stephie Velarde MD Referring Provider Active Start: April 15, 2025 Berna Pierson NP LEAD ATG DEVELOPER-C Attending physician Active Start: April 15, 2025 Team Status: Inactive Member Role/Relationship Status Dates Dr. Stephie Velarde MD Primary care physician Activ e Start: April 15, 2025 End: April 15, 2025 Dr. Stephie Velarde MD Referring Provider Active Start: April 15, 2025 End: April 15, 2025 Berna Pierson NP LEAD ATG DEVELOPER-C Attending physician Active Start: April 15, 2025 End: April 15, 2025 Team Status: Inactive Member Role/Relationship Status Dates Dr. Stephie Velarde MD Primary care physician Activ e Start: April 16, 2025 End: April 16, 2025 Dr. Stephie Velarde MD Referring Provider Active Start: April 16, 2025 End: April 16, 2025 Darlene Chin NP-C Attending physician Active Start: April 16, 2025 End: April 16, 2025 Team Status: Inactive Member Role/Relationship Status Dates Dr. Stephie Velarde MD Primary care physician Activ e Start: January 08, 2025 End: January 08, 2025 Dr. David Corral MD Attending physician Active Start: January 08, 2025 End: January 08, 2025 Dr. David Corral MD Referring Provider Active S tart: January 08, 2025 End: January 08, 2025 Team Status: Inactive Member Role/Relationship Status Dates Dr. Stephie Velarde MD Primary care physician Activ e Start: January 13, 2025 End: January 13, 2025 Dr. Stephie Velarde MD Referring Provider Active Start: January 13, 2025 End: January 13, 2025 Dr. David Corral MD Attending physician Active Start: January 13, 2025 End: January 13, 2025 Team Status: Inactive Member Role/Relationship Status Dates Dr. Stephie Velarde MD Primary care physician Activ e Start: March 03, 2025 End: March 03, 2025 Dr. Stephie Velarde MD Referring Provider Active Start: March 03, 2025 End: March 03, 2025 Dr. David Corral MD Attending physician Active Start: March 03, 2025 End: March 03, 2025 Team Status: Inactive Member Role/Relationship Status Dates Dr. David Corral MD Primary care physician Active Start: March 03, 2025 End: March 03, 2025 Dr. David Corral MD Attending physician Active Start: March 03, 2025 End: March 03, 2025 Team Status: Inactive Member Role/Relationship Status Dates Dr. Stephie Velarde MD Attending physician Active Start: March 16, 2025 End: March 16, 2025 Dr. Stephie Velarde MD Referring Provider Active Start: March 16, 2025 End: March 16, 2025 Dr. David Corral MD Primary care physician Active Start: March 16, 2025 End: March 16, 2025 Team Status: Inactive Member Role/Relationship Status Dates Berna Pierson NP, LEAD ATG DEVELOPER-C Attending physician Active Start: March 18, 2025 End: March 18, 2025 Dr. David Corral MD Primary care physician Active Start: March 18, 2025 End: March 18, 2025 Dr. David Corral MD Referring Provider Active S tart: March 18, 2025 End: March 18, 2025 Team Status: Inactive Member Role/Relationship Status Dates Dr. David Corral MD Primary care physician Active Start: March 25, 2025 End: March 25, 2025 Dr. David Corral MD Attending physician Active Start: March 25, 2025 End: March 25, 2025 Dr. David Corral MD Referring Provider Active S tart: March 25, 2025 End: March 25, 2025 Team Status: Inactive Member Role/Relationship Status Dates Berna Pierson NP, LEAD ATG DEVELOPER-C Attending physician Active Start: April 08, 2025 End: April 08, 2025 Dr. Stephie Velarde MD Primary care physician Activ e Start: April 08, 2025 End: April 08, 2025 Dr. Stephie Velarde MD Referring Provider Active Start: April 08, 2025 End: April 08, 2025 Team Status: Inactive Member Role/Relationship Status Dates Dr. Stephie Velarde MD Primary care physician Activ e Start: April 15, 2025 End: April 15, 2025 Dr. Stephie Velarde MD Referring Provider Active Start: April 15, 2025 End: April 15, 2025 Berna Pierson NP LEAD ATG DEVELOPER-C Attending physician Active Start: April 15, 2025 End: April 15, 2025 Team Status: Inactive Member Role/Relationship Status Dates Dr. Stephie Velarde MD Primary care physician Activ e Start: April 16, 2025 End: April 16, 2025 Dr. Stephie Velarde MD Referring Provider Active Start: April 16, 2025 End: April 16, 2025 Darlene Chin NP-C Attending physician Active Start: April 16, 2025 End: April 16, 2025 Team Status: Inactive Member Role/Relationship Status Dates Dr. Stephie Velarde MD Primary care physician Activ e Start: April 22, 2025 End: April 22, 2025 Dr. Stephie Velarde MD Referring Provider Active Start: April 22, 2025 End: April 22, 2025 Dr. David Corral MD Attending physician Active Start: April 22, 2025 End: April 22, 2025 Team Status: Active Member Role/Relationship Status Dates Dr. Stephie Velarde MD Primary care physician Activ e Start: April 22, 2025 Dr. Stephie Velarde MD Referring Provider Active Start: April 22, 2025 Berna Pierson NP, LEAD ATG DEVELOPER-C Attending physician Active Start: April 22, 2025 Team Status: Inactive Member Role/Relationship Status Dates Dr. Stephie Velarde MD Primary care physician Activ e Start: May 06, 2025 End: May 06, 2025 Dr. Stephie Velarde MD Referring Provider Active Start: May 06, 2025 End: May 06, 2025 Dr. David Corral MD Attending physician Active Start: May 06, 2025 End: May 06, 2025 Team Status: Active Member Role/Relationship Status Dates Dr. Stephie Velarde MD Primary care physician Activ e Start: May 06, 2025 Dr. Stephie Velarde MD Referring Provider Active Start: May 06, 2025 Berna Pierson LEAD ATG DEVELOPER, LEAD ATG DEVELOPER-C Attending physician Active Start: May 06, 2025 Goals (unrecognized section and content) Goals may be documented in a n alternate sectionGoals may be documented in an alternate sectionGoals may be documented in an alternate sectionGoals may be documented in an alternate sectionGoals may be documented in an alternate sectionGoals may be documented in an alternate sectionGoals may be documented in an alternate sectionGoals may be documented in an alternate sectionGoals may be documented in an alternate sectionGoals may be documented in an alternate sectionGoals may be documented in an alternate sectionGoals may be documented in an alternate sectionGoals may be documented in an alternate section FOR RECORDS PERTAINING TO PATIENTS WHO ARE OR HAVE BEEN ENROLLED IN A CHEMICAL DEPENDENCY/SUBSTANCEABUSE PROGRAM, SOME INFORMATION MAY BE OMITTED. This clinical summary was aggregated from multiple sources. Caution should be exercised in using it in the provision of clinical care. This summary normalizes information from multiple sources, and as a consequence, information in this document may materially change the coding, format and clinical context of patient data. In addition, data may be omitted in some cases. CLINICAL DECISIONS SHOULD BE BASED ON THE PRIMARY CLINICAL RECORDS. [facility]. provides no warranty or guarantee of the accuracy or completeness of information in this document.
[2025-06-27] MEDS: fentaNYL 100 MCG/2 ML Ampul 50 MCG IV (15:44)
[2025-06-27 15:46] LABS: AST(SGOT) 23 U/L (<=31); Alanine Aminotransfer ALT/SGPT 6 U/L (<=34); Albumin, Serum 3.3 g/dL (3.4-4.8); Alkaline Phosphatase 63 U/L (35-104); Anion Gap 14 (5-15); BUN 38 mg/dL (4-19); BUN/Creat Ratio 13.9 RATIO (10-20); Calcium,Total 10.2 mg/dL (7.6-11.0); Carbon Dioxide 24.4 mmol/L (21.0-32.0); Chloride 97 mmol/L (98-108); Differential Comment SCANNED; Differential Indicated SCAN CRITERIA MET; Estimated Creatinine Clearance 23.51 ml/min (50-250); Globulin 4.1 g/dL (2.2-4.2); Glucose 123 mg/dL (70-99); Potassium 4.0 mmol/L (3.3-5.1); Uric Acid 10.1 mg/dL (2.6-6.0)
[2025-06-27 15:48] LABS: Polychromasia RARE
[2025-06-27 17:03] LABS: Mucous, Urine 0 SEEN /hpf (<or=2+)
[2025-06-27 17:04] LABS: Color, Urine Yellow (Yellow); Glucose, Dipstick Normal (Normal); Ketone-Dipstick Negative (Negative); Leukocyte Esterase-Dipstick Negative /ul (Negative); Nitrite-Dipstick Negative (Negative); Occult Blood-Urine Negative /ul (Negative); Protein-Dipstick 100 mg/dl (Negative); Specific Gravity, Urine 1.010 (1.002-1.030); Urine Bilirubin Dipstick Negative (Negative)
--- NOTE | 2025-06-27 17:13 | PCM.HP.STD ---
HPI - General General Date of Admission: 06/27/25 Date of Service: 06/27/25 Chief Complaint: Weakness, debility, R knee pain and swelling. HPI Narrative The patient is a 69 y/o F w/ PMHx: Hx Ovarian cancer, CKD stage IV, Chronic mild cognitive impairment/memory impairment, Chart reported Hx of Pre-Diabetes, GERD, HTN, HLD, Chronic macrocytic anemia/AOCD/iron deficiency anemia, Obesity, COPD, Former tobacco use who presents to [facility] ED on 06/27/2025 with history of increased weakness and fatigue over the last 3 to 4 days with onset right knee pain and swelling over the last 48 hours with no history of any fever with decreased appetite and nausea but no emesis nor any recent URI type symptoms or urological symptoms but given ongoing and discomfort and swelling to the knee prompted ED evaluation. In the ED patient able to flex and extend the knee with some discomfort. Patient noted previous to the arthrocentesis her pain was sharp, aching 10 out of 10 in severity but following is near resolved at this point although breading machine tender with palpation and with some movement rating it 2-3 out of 10 in severity. Workup in the ED included T97.9, heart rate 95, BP 114/71, respiratory rate 14, 100% on room air with most recent repeat vitals T97.9, heart rate 85, BP 131/69, respiratory rate 23, 97% on room air, CBC with WC 7.9, hemoglobin 8.9, MCV 103.4, platelet 183 with lymphopenia, CMP with chloride 97, BUN/creatinine 38/2.75, GFR 18, glucose 123, uric acid 10.1, hepatic profile not marked appearing, chest x-ray with mild pulmonary vascular congestion and interstitial edema, right lower lobe opacity likely atelectasis, plain film of the right knee with soft tissue swelling and moderate right knee effusion new since prior study with no acute osseous abnormality with severe tricompartmental osteoarthritis of the right knee, EKG with sinus rhythm with no acute evidence of ischemia. In the ED right knee arthrocentesis performed with injection of Kenalog and lidocaine gel per ED physician. [facility] Medical History (Updated 06/27/25 @ 17:[address] Stephani Garcia MD) Ovarian cancer Lump in central portion of breast Breast mass, right Knee osteoarthritis De Quervain's tenosynovitis, left CKD (chronic kidney disease), stage IV Mild cognitive impairment Hyperglobulinemia Anemia Aortic aneurysm PORT PLACEMENT Obstructive sleep apnea Borderline type 2 diabetes mellitus Bilateral lower extremity edema GERD (gastroesophageal reflux disease) Hypertension Home Medications ?Medication ?Instructions ?Recorded ?Last Taken ?Type blood pressure monitor #1 ea 08/16/21 Unknown Rx Cpap Mask #1 ea 05/02/23 Unknown Rx Handicap Placard #1 ea 05/05/24 Unknown Rx fluticasone propionate 50 2 spray intranasal DAILY #16 grams 07/28/24 Unknown Rx mcg/actuation nasal spray,suspension bupropion HCl 150 mg tablet,12 hr 150 mg PO BID #180 TABLETS 09/16/24 Unknown Rx sustained-release cholecalciferol (vitamin D3) 25 25 mcg PO QDAY 12/25/24 Unknown History mcg (1,000 unit) capsule ondansetron 8 mg disintegrating 4 mg PO Q8H PRN PRN Nausea 12/25/24 Unknown History tablet metoprolol succinate 100 mg 100 mg PO BID #180 tabs 04/06/25 Unknown Rx tablet,extended release 24 hr pantoprazole 40 mg tablet,delayed 40 mg PO DAILY #90 tabs 04/06/25 Unknown Rx release hydralazine 100 mg tablet 100 mg PO TID 3 months #270 tabs 04/07/25 Unknown Rx amlodipine 10 mg tablet 10 mg PO QDAY #90 tabs 04/08/25 Unknown Rx magnesium oxide 400 mg PO QDAY #30 caps 04/08/25 Unknown Rx acetaminophen 500 mg capsule 500 mg PO Q6H PRN fever or pain 04/16/25 Unknown History budesonide-formoterol HFA 160 1 inh inhalation BID 04/16/25 Unknown History mcg-4.5 mcg/actuation aerosol inhaler (Symbicort) clonidine HCl 0.1 mg tablet 0.1 mg PO TID PRN hypertensive 04/21/25 Unknown Rx emergency #90 tabs polysaccharide iron complex 150 mg 150 mg PO DAILY 90 days #90 caps 05/12/25 Unknown Rx iron capsule (Ferrex) hydrochlorothiazide 25 mg tablet See Rx Instructions .Route 05/29/25 Unknown Rx .COMPLEX #90 tabs Allergy/AdvReac Type Severity Reaction Status Date / Time povidone-iodine (From Allergy Severe Rash Verified 06/27/25 14:51 Betadine) soap (From Betadine) Allergy Severe Rash Verified 06/27/25 14:51 Family History Grandmother Hypertension Diabetes Mother Diabetes Breast cancer Father Alcoholism Surgical History History of hysterectomy for cancer S/P tonsillectomy History of tubal ligation Social History household members: family and other details: Lives with her son. Smoking Status: Former smoker alcohol intake: never substance use type: does not use frequency: does not exercise ROS ROS Narrative Admission Review of Systems: CONSTITUTIONAL: No weight loss, fever, chills, + weakness or fatigue. HEENT: Eyes: No visual loss, blurred vision, double vision or yellow sclerae. Ears, Nose, Throat: No hearing loss, sneezing, congestion, runny nose or sore throat. SKIN: No rash or itching, lesions, wounds except + R knee pain, swelling as well as bilateral lower extremity chronic venous stasis skin changes, occasional stage ecchymoses, abrasions. CARDIOVASCULAR: No chest pain, chest pressure or chest discomfort, palpitations, edema, orthopnea, syncopal events. RESPIRATORY: No shortness of breath, cough or sputum, wheezing, hemoptysis. GASTROINTESTINAL: + anorexia, nausea. No vomiting or diarrhea, abdominal pain, melena, BRBPR. GENITOURINARY: No dysuria, frequency, urgency or retention. NEUROLOGICAL: No headache, dizziness, syncope, paralysis, ataxia, numbness or tingling in the extremities, focal weakness, change in bowel or bladder control, seizure. MUSCULOSKELETAL: + muscle, back pain, joint pain or stiffness. HEMATOLOGIC: + Chronic anemia, easy bleeding/bruising. LYMPHATICS: No enlarged nodes. No history of splenectomy. PSYCHIATRIC: + History of anxiety and depression. ENDOCRINOLOGIC: No reports of sweating, cold or heat intolerance. No polyuria or polydipsia. ALLERGIES: No history of asthma, hives, eczema or rhinitis. Vital Signs Vital Signs Vital Signs: 06/27/25 14:50 06/27/25 14:55 06/27/25 16:00 Temperature 97.9 F 97.9 F 97.9 F Temperature Source Oral Oral Oral Pulse Rate 95 94 85 Respiratory Rate 14 16 23 H Blood Pressure 114/71 114/71 131/69 H Blood Pressure Mean 85 85 89 Pulse Ox 100 98 97 Oxygen Delivery Method Room Air Room Air Room Air 06/27/25 16:30 06/27/25 17:04 06/27/25 17:09 Temperature 97.9 F Temperature Source Pulse Rate 89 88 88 Respiratory Rate 14 14 Blood Pressure 142/87 H 116/72 116/72 Blood Pressure Mean 96 85 86 Pulse Ox 84 84 Oxygen Delivery Method Weight Weight: 221 lb 5.506 oz Body Mass Index (BMI) 34.7 Physical Exam Narrative Physical Examination: General: Awake, alert, oriented x 3 and cooperative, seated upright in the ED bed, fatigued, disheveled appearance, reports pain significantly proved to right knee status post arthrocentesis. Skin: Normal color, normal turgor, no icterus, no cyanosis except occasional stage ecchymoses, abrasion, venous stasis skin changes bilateral lower extremities.. HEENT: AT/NC, EOMI, PERRLA, mildly dry MM, no carotid bruits or JVD noted. Lungs: Diminished, greater bases, appropriate effort, no evidence of any distress, no rales, ronchi or wheezing. Heart: Regular rate and rhythm; no gallop, rub audible, right upper chest port access in place. Abdomen: Soft, obese, NTTP, ND, mildly hyperactive BS, no markedly appreciated HSM. Extremities: No cyanosis, no clubbing, mild ankle nonpitting edema, see skin, right knee with some increased warmth and still increased swelling compared to the left, status post arthrocentesis. Neurological: Patient awake, alert, oriented as noted, cognitive function intact; pupils equally reactive to light and accommodation, cranial nerves grossly normal, moving all 4 extremities although expected limitation right lower extremity given discomfort but improved since arthrocentesis, no focal deficits, strength severely globally decreased. Psychiatric: Affect appears flat, fatigued, no acute evidence of depressive or anxiety feelings but does have underlying history. Results Lab / Micro Data 06/27/25 15:20 06/27/25 15:20 Labs: Laboratory Results - last 24 hr 06/27/25 15:20: WBC 7.9, RBC 2.67 L, Hgb 8.9 L, Hct 27.6 L, MCV 103.4 H, MCH 33.3 H, MCHC 32.2, RDW Std Deviation 68.7 H, RDW Coeff of [place]ietta 18.4 H, Plt Count 183, MPV 12.0, Immature Gran % (Auto) 0.600, Neut % (Auto) 75.1 H, Lymph % (Auto) 8.6 L, [place] % (Auto) 15.3 H, Eos % (Auto) 0.1, Baso % (Auto) 0.3, Absolute Neuts (auto) 5.9, Absolute Lymphs (auto) 0.68 L, Nucleated RBC % 0, Differential Comment SCANNED, Polychromasia RARE, Ovalocytes RARE, Sodium 135, Potassium 4.0, Chloride 97 L, Carbon Dioxide 24.4, Anion Gap 14, BUN 38 H, Creatinine 2.75 H, Estim Creat Clear Calc 23.51 L, Est GFR (MDRD) Non-Af 18 L, BUN/Creatinine Ratio 13.9, Glucose 123 H, Uric Acid 10.1 H, Calcium 10.2, Total Bilirubin 0.64, AST 23, ALT 6, Alkaline Phosphatase 63, Total Protein 7.4, Albumin 3.3 L, Globulin 4.1, Albumin/Globulin Ratio 0.8 L 06/27/25 16:59: Urine Color Yellow, Urine Clarity Clear, Urine pH 6.5, Ur Specific [place] 1.010, Urine Protein 100 H, Urine Glucose (UA) Normal, Urine Ketones Negative, Urine Occult Blood Negative, Urine Nitrite Negative, Urine Bilirubin Negative, Urine Urobilinogen Normal, Ur Leukocyte Esterase Negative Rhythm Strip Rhythm Strip: Sinus Rhythm Rate: 87 Ectopy: None Imaging Radiology Impression Knee X-Ray 06/27/25 15:09 IMPRESSION: Soft tissue swelling and moderate right knee effusions are new since prior study. No definitive acute Osseous abnormality. Severe tricompartmental osteoarthritis of the right knee. Reading Location: [facility] Chest X-Ray 06/27/25 15:35 IMPRESSION: Mild pulmonary vascular congestion and interstitial edema. Right lower lobe opacity likely atelectasis although early stages of pneumonia not excluded. Reading Location: [facility] Assessment & Plan Assessment/Plan (1) Adult failure to thrive: PLAN: Plan The patient is a 69 y/o F w/ PMHx: Hx Ovarian CA, CKD stage IV, Chronic mild cognitive impairment/memory impairment, Chart reported Hx of Pre-Diabetes, GERD, HTN, HLD, Chronic macrocytic anemia/AOCD/iron deficiency anemia, Obesity, COPD, Former tobacco use who presents to [facility] ED on 06/27/2025 with history of increased weakness and fatigue over the last 3 to 4 days with onset right knee pain and swelling over the last 48 hours with no history of any fever with decreased appetite and nausea but no emesis nor any recent URI type symptoms or urological symptoms but given ongoing and discomfort and swelling to the knee prompted ED evaluation. #1. Acute debility, fatigue, adult failure to thrive with right knee swelling, pain with concern for possible acute gouty flare: In the ED patient with attempted right knee arthrocentesis however minimal fluid pulled per ED physician with injection of Kenalog and lidocaine, given debility will admit to medical surgical floor, maintain on fall precautions, will initiate and maintain on IV toradol, given recent injection of steroids/kenelop will hold on further steroids at this time and continue to monitor. If needed may consider colchicine. Will maintain on fall precautions, PT/OT/CM consulted for discharge planning. #2. History of brain cancer: Status post left ovarian malignancy diagnosis, given extensive adenopathy [facility] Dr. Carey had recommended adjuvant chemotherapy with carboplatin/paclitaxel with then consideration of debulking, eventual 09/10/2020 total abdominal hysterectomy, bilateral salpingo-oophorectomy and tumor debulking at [facility] per Dr. Carey with pathology demonstrating peritoneal metastases and high-grade serous carcinoma, maintained for several years on [place], 02/12/2025 PET/CT at [facility] with left sided cervical node and retroperitoneal activity with initiation on at that time Taxol/carboplatin for progressive disease, 06/09/2025 PET/CT with complete resolution of uptake of previously noted lymph nodes in the left neck and right peritoneum with no suspicious hypermetabolic activity demonstrated. Most recent evaluation by oncology 06/17/2025 currently considered in remission per patient report, encourage follow-up as previously arranged. Mag, Phos requested. #3. Chronic Kidney Disease Stage IV per GFR trending: Admission BUN/Cr 38/2.75, GFR 18, baseline renal function primarily since May 2025 2.3-2.9, most recently prior 06/17/2025 creatinine 2.93, repeat BMP in AM. #4. Chart reported history of borderline diabetes mellitus type 2: Per current list does not appear to be on regimen, most recent noted hemoglobin A1c 09/03/2024 at 5%, will maintain on ADA diet with Accu-Cheks with insulin sliding scale. #5. Hypertension: Continue home regimen including metoprolol, hydralazine bwith hold parameters, PRN hydralazine. Holding HCTZ given #1 presentation as noted. #6. Hyperlipidemia: Per current list does not appear to be on any statin therapy, defer to outpatient. #7. Chronic COPD: Will temporally hold home inhaler in the interim placed on ATC budesonide therapy, PRN albuterol, HOB, IS parameters. #8. Former tobacco use: Encourage continued tobacco cessation #9. Anxiety and depression: Will continue patient home appropriate regimen. #10. Obesity: Weight loss and lifestyle changes encouraged. #11. GERD: Will continue patient on PPI. #12. Chronic macrocytic anemia/AOCD/iron deficiency anemia: Admission hemoglobin 8.9, MCV 103.4, baseline primarily 89, stable, continue to trend, continue iron supplementation. #13. DVT prophylaxis: Heparin. #14. CODE status: Patient CASPER is her son and living will is currently in place. Discussed CODE status at length including difference between FULL code, DNR-CCA and DNR-CC status. Following discussions about the differences in these status, requested Full Code status. Advanced Care Planning Face to Face Time: 16 minutes. Charges/Coding Visit Charges Inpatient E&M: 76937 Init Hosp L2 Procedures Hospitalists Procedures: 65224 Advncd Care Plan 30 Min
[2025-06-27 17:20] LABS: Red Blood Cells-Urine 0-5 SEEN /hpf (0-5)
[2025-06-27 17:21] LABS: Squamous Epithelial Cells - UA 0-5 SEEN /hpf (5-10)
[2025-06-27 17:55] LABS: Magnesium 1.9 mg/dL (1.5-2.2)
--- OUTSIDE RECORDS SUMMARY | 2025-06-27 18:00 | XMS RPT_ITS | CCD ---
Author Organization [facility] Care Team Providers Care Development Professional Name Role Phone Stephie Velarde Primary Care [...] MD Referring Provider Aravind Carey MD Unavailable ERYN LUTZ Attending Unavailable CHELSEY, ERYN Referring [...] Prachi ZIEGLER, Dr. Antunez Attending Provider Dangelo RELATIONS LIAISON-C, Berna Attending Provider Prachi ZIEGLER, Dr. Antunez Primary Care Physician Ellis ZIEGLER, Dr. Hernandez Attending Physician Ellis ZIEGLER, Dr. Hernandez Primary Care Physician Prachi ZIEGLER, Dr. Antunez Attending Physician Dangelo RELATIONS LIAISON-C, Berna Attending Physician Ungeregita RELATIONS LIAISON-CDarlene Attending Physician Prachi ZIEGLER, Dr. Antunez Primary Care Physician Ellis ZIEGLER, Dr. Hernandez Attending Physician Prachi ZIEGLER, Dr. Antunez Referring Provider [phone] Bebo Faith Attending Unavailable Oleghe, Efewongbe Referring [...] Unavailable Oleghe, Efewongbe Primary Care Unavailable Dangelo RELATIONS LIAISON, Berna Attending Unavailable David Corral Referring Unavailable David Corral Primary Care Unavailable Dangelo RELATIONS LIAISON, Berna Attending Unavailable David Corral Attending Unavailable David Corral Referring Unavailable David Corral Primary Care Unavailable Oleghe, Efewongbe Primary Care Unavailable Oleghe, Efewongbe Referring Unavailable Dangelo RELATIONS LIAISON, Berna Attending Unavailable Oleghe, Efewongbe Referring Unavailable Oleghe, Efewongbe Primary Care Unavailable Dangelo RELATIONS LIAISON, Berna Attending Unavailable Oleghe, Efewongbe Referring Unavailable Oleghe, Efewongbe Primary Care Unavailable Dangelo RELATIONS LIAISON, Berna Attending Unavailable Ivan Salazar Attending Unavailable [...] (1 source) Povidone-Iodine Drug Allergy 7 Itching [facility] Work Phone: (20 sources) Iodine Drug Allergy 0 Itching [facility] Work Phone: (20 sources) Seasonal allergy Propensity to adverse reactions to substance 1 [facility] Work Phone: (20 sources) Povidone-Iodine ; Translations: [POVIDONE-IODIN E] Drug Allergy 7 Itching [facility] Work Phone: (20 sources) soap; Translations: [soap] Allergy to substance 9 Rash, Unknown [facility] (1 source) Povidone-Iodine Drug Allergy [facility] Repository Medications Current Medications Medication Drug Class(es) [...] End: 05-02-2023 Cpap Mask Discontinued 0 .[place] .MEDSUPPLY 1 0 April 30, 2023 12:00am May 02, 2023 11:41am As directed Start: 04-30-2023 End: 05-02-2023 Cpap Mask Discontinued 0 .[place] .MEDSUPPLY 1 April 30, 2023 12:00am May [...] on above: Take 1 capsule by mo [facility] every 6 hours as needed. 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, [address] Absolute Neut 1.5 X10 3/uL Low 2.0-7.7 [facility] Comment on above: Performed By: #### L 501.5200, L100.0100, L500.4050 ####[facility] [address] [place], [address] Basophils/100 WBC (Bld) 0.7 % Normal 0-1 [facility] Comment on above: Performed By: #### L 501.5200, L100.0100, L500.4050 ####[facility] [address] [place], [address] Eosinophils/100 WBC (Bld) 1.7 % Normal 0-5 [facility] Comment on above: Performed By: #### L 501.5200, L100.0100, L500.4050 ####[facility] [address] [place], [address] Erythrocyte distribution width (RBC) [Ratio] 17.2 % High 11.6-14.6 [facility] Comment on above: Performed By: #### L 501.5200, L100.0100, L500.4050 ####[facility] [address] [place], [address] Hematocrit (Bld) [Volume fraction] 25.9 % Low 37-47 [facility] Comment on above: Performed By: #### L 501.5200, L100.0100, L500.4050 ####[facility] [address] [place], [address] Hemoglobin (Bld) [Mass/Vol] 8.5 g/dL Low 12.0-15.0 [facility] Comment on above: Performed By: #### L 501.5200, L100.0100, L500.4050 ####[facility] [address] [place], [address] IG% 0.300 Normal 0.0-0.9 [facility] Comment on above: Result Comment: IG% - Immature Granulocytes (promyelocytes, myelocytes andmetamyelocytes) > 1% indicates that a LEFT SHIFT is Present. Performed By: #### L 501.5200, L100.0100, L500.4050 ####[facility] [address] [place], [address] Lymphocytes/100 WBC (Bld) 36.7 % Normal 19-41 [facility] Comment on above: Performed By: #### L 501.5200, L100.0100, L500.4050 ####[facility] [address] [place], [address] MCH (RBC) [Entitic mass] 33.3 pg High 27.0-32.0 [facility] Comment on above: Performed By: #### L 501.5200, L100.0100, L500.4050 ####[facility] [address] [place], [address] MCHC (RBC) [Mass/Vol] 32.8 g/dL Normal 32-36 [facility] Comment on above: Performed By: #### L 501.5200, L100.0100, L500.4050 ####[facility] [address] [place], [address] MCV (RBC) [Entitic vol] 101.6 fL High 81-99 [facility] Comment on above: Performed By: #### L 501.5200, L100.0100, L500.4050 ####[facility] [address] [place], [address] Monocytes/100 WBC (Bld) 7.3 % Normal 0-10 [facility] Comment on above: Performed By: #### L 501.5200, L100.0100, L500.4050 ####[facility] [address] [place], [address] Neutrophils/100 WBC (Bld) 53.3 % Normal 47-70 [facility] Comment on above: Performed By: #### L 501.5200, L100.0100, L500.4050 ####[facility] [address] [place], [address] Nucleated RBC (Bld) [#/Vol] 0 10*3/uL Normal 0-5 [facility] Comment on above: Performed By: #### L 501.5200, L100.0100, L500.4050 ####[facility] [address] [place], [address] Platelet mean volume (Bld) [Entitic vol] 12.5 fL High 6.2-12.0 [facility] Comment on above: Performed By: #### L 501.5200, L100.0100, L500.4050 ####[facility] [address] [place], [address] Platelets (Bld) [#/Vol] 132 10*3/uL Low 150-450 [facility] Comment on above: Performed By: #### L 501.5200, L100.0100, L500.4050 ####[facility] [address] [place], [address] RBC (Bld) [#/Vol] 2.55 10*6/uL Low 4.2-5.4 [facility] Comment on above: Performed By: #### L 501.5200, L100.0100, L500.4050 ####[facility] [address] [place], [address] RDW SD 63.2 fl High 35.1-43.9 [facility] Comment on above: Performed By: #### L 501.5200, L100.0100, L500.4050 ####[facility] [address] [place], [address] WBC (Bld) [#/Vol] 2.9 10*3/uL Low 4.4-11.0 [facility] Comment on above: Performed By: #### L 501.5200, L100.0100, L500.4050 ####[facility] [address] [place], [address] Comprehensive Metabolic Prof [facility] 06-03-2025 Albumin [Mass/Vol] 4.1 g/dL Normal 3.4-4.8 [facility] Comment on above: Performed By: #### L 501.5200, L100.0100, L500.4050 ####[facility] [address] [place], [address] Albumin/Globulin [Mass ratio] 1.3 {ratio} Normal 0.9-2.4 [facility] Comment on above: Performed By: #### L 501.5200, L100.0100, L500.4050 ####[facility] [address] [place], [address] ALK PHOS 71 U/L Normal 35-104 [facility] Comment on above: Performed By: #### L 501.5200, L100.0100, L500.4050 ####[facility] [address] [place], [address] ALT [Catalytic activity/Vol] 14 U/L Normal <=34 [facility] Comment on above: Performed By: #### L 501.5200, L100.0100, L500.4050 ####[facility] [address] [place], [address] AST [Catalytic activity/Vol] 22 U/L Normal <=31 [facility] Comment on above: Performed By: #### L 501.5200, L100.0100, L500.4050 ####[facility] [address] [place], [address] Bilirubin [Mass/Vol] 0.34 mg/dL Normal 0.00-1.30 [facility] Comment on above: Performed By: #### L 501.5200, L100.0100, L500.4050 ####[facility] [address] [place], [address] BUN/CRE 16.4 RATIO Normal 10-20 [facility] Comment on above: Performed By: #### L 501.5200, L100.0100, L500.4050 ####[facility] [address] [place], [address] Calcium [Mass/Vol] 9.9 mg/dL Normal 7.6-11.0 [facility] Comment on above: Performed By: #### L 501.5200, L100.0100, L500.4050 ####[facility] [address] [place], [address] Chloride [Moles/Vol] 105 mmol/L Normal 98-108 [facility] Comment on above: Performed By: #### L 501.5200, L100.0100, L500.4050 ####[facility] [address] [place], [address] CO2 [Moles/Vol] 23.7 mmol/L Normal 21.0-32.0 [facility] Comment on above: Performed By: #### L 501.5200, L100.0100, L500.4050 ####[facility] [address] [place], [address] Creatinine [Mass/Vol] 2.66 mg/dL High 0.70-1.20 [facility] Comment on above: Performed By: #### L 501.5200, L100.0100, L500.4050 ####[facility] [address] [place], [address] ECRCL 24.29 ml/min Low 50-250 [facility] Comment on above: Performed By: #### L 501.5200, L100.0100, L500.4050 ####[facility] [address] [place], [address] GAP 12 Normal 5-15 [facility] Comment on above: Performed By: #### L 501.5200, L100.0100, L500.4050 ####[facility] [address] [place], [address] GFR/1.73 sq M.predicted among non-blacks MDRD (S/P/Bld) [Vol rate/Area] 19 mL/min/{1.73_m2} Low >60 [facility] Comment on above: Result Comment: mL/m in/1.73m2 CKD-EPI Creatinine Equation (2020) Performed By: #### L 501.5200, L100.0100, L500.4050 ####[facility] [address] [place], [address] Globulin (S) [Mass/Vol] 3.1 g/dL Normal 2.2-4.2 [facility] Comment on above: Performed By: #### L 501.5200, L100.0100, L500.4050 ####[facility] [address] [place], [address] Glucose [Mass/Vol] 120 mg/dL High 70-99 [facility] Comment on above: Performed By: #### L 501.5200, L100.0100, L500.4050 ####[facility] [address] [place], [address] Potassium [Moles/Vol] 3.4 mmol/L Normal 3.3-5.1 [facility] Comment on above: Performed By: #### L 501.5200, L100.0100, L500.4050 ####[facility] [address] [place], [address] Sodium [Moles/Vol] 140 mmol/L Normal 133-145 [facility] Comment on above: Performed By: #### L 501.5200, L100.0100, L500.4050 ####[facility] [address] [place], [address] T PROT 7.1 g/dL Normal 5.9-8.4 [facility] Comment on above: Performed By: #### L 501.5200, L100.0100, L500.4050 ####[facility] [address] [place], [address] Urea nitrogen [Mass/Vol] 44 mg/dL High 4-19 [facility] Comment on above: Performed By: #### L 501.5200, L100.0100, L500.4050 ####[facility] [address] [place], [address] Magnesiumon 06-03-2025 Magnesium [Mass/Vol] 1.4 mg/dL Low 1.5-2.2 [facility] Comment on above: Performed By: #### L 501.5200, L100.0100, L500.4050 ####[facility] [address] [place], [address] CT Chest, Abd, Pel w/Contras ton 06-01-2025 CT Chest, Abd, Pel w/Contrast Normal [facility] Soft Tissue Neck WITH Contra ston 06-01-2025 Soft Tissue Neck WITH Contrast Normal [facility] CBC W/Diff, Automatedon 10-2 Absolute Lymph 0.94 X10 3/uL Normal 0.83-4.51 [facility] Comment on above: Performed By: #### L 500.4050, L100.0100, L501.5200 ####[facility] [address] [place], [address] Absolute Neut 1.4 X10 3/uL Low 2.0-7.7 [facility] Comment on above: Performed By: #### L 500.4050, L100.0100, L501.5200 ####[facility] [address] [place], [address] Basophils/100 WBC (Bld) 0.8 % Normal 0-1 [facility] Comment on above: Performed By: #### L 500.4050, L100.0100, L501.5200 ####[facility] [address] [place], [address] Eosinophils/100 WBC (Bld) 1.1 % Normal 0-5 [facility] Comment on above: Performed By: #### L 500.4050, L100.0100, L501.5200 ####[facility] [address] [place], [address] Erythrocyte distribution width (RBC) [Ratio] 17.1 % High 11.6-14.6 [facility] Comment on above: Performed By: #### L 500.4050, L100.0100, L501.5200 ####[facility] [address] [place], [address] Hematocrit (Bld) [Volume fraction] 25.9 % Low 37-47 [facility] Comment on above: Performed By: #### L 500.4050, L100.0100, L501.5200 ####[facility] [address] [place], [address] Hemoglobin (Bld) [Mass/Vol] 8.6 g/dL Low 12.0-15.0 [facility] Comment on above: Performed By: #### L 500.4050, L100.0100, L501.5200 ####[facility] [address] [place], [address] IG% 0.400 Normal 0.0-0.9 [facility] Comment on above: Result Comment: IG% - Immature Granulocytes (promyelocytes, myelocytes andmetamyelocytes) > 1% indicates that a LEFT SHIFT is Present. Performed By: #### L 500.4050, L100.0100, L501.5200 ####[facility] [address] [place], [address] Lymphocytes/100 WBC (Bld) 35.6 % Normal 19-41 [facility] Comment on above: Performed By: #### L 500.4050, L100.0100, L501.5200 ####[facility] [address] [place], [address] MCH (RBC) [Entitic mass] 33.5 pg High 27.0-32.0 [facility] Comment on above: Performed By: #### L 500.4050, L100.0100, L501.5200 ####[facility] [address] [place], [address] MCHC (RBC) [Mass/Vol] 33.2 g/dL Normal 32-36 [facility] Comment on above: Performed By: #### L 500.4050, L100.0100, L501.5200 ####[facility] [address] [place], [address] MCV (RBC) [Entitic vol] 100.8 fL High 81-99 [facility] Comment on above: Performed By: #### L 500.4050, L100.0100, L501.5200 ####[facility] [address] [place], [address] Monocytes/100 WBC (Bld) 8.3 % Normal 0-10 [facility] Comment on above: Performed By: #### L 500.4050, L100.0100, L501.5200 ####[facility] [address] [place], [address] Neutrophils/100 WBC (Bld) 53.8 % Normal 47-70 [facility] Comment on above: Performed By: #### L 500.4050, L100.0100, L501.5200 ####[facility] [address] [place], [address] Nucleated RBC (Bld) [#/Vol] 0 10*3/uL Normal 0-5 [facility] Comment on above: Performed By: #### L 500.4050, L100.0100, L501.5200 ####[facility] [address] [place], [address] Platelet mean volume (Bld) [Entitic vol] 12.1 fL High 6.2-12.0 [facility] Comment on above: Performed By: #### L 500.4050, L100.0100, L501.5200 ####[facility] [address] [place], [address] Platelets (Bld) [#/Vol] 143 10*3/uL Low 150-450 [facility] Comment on above: Performed By: #### L 500.4050, L100.0100, L501.5200 ####[facility] [address] [place], [address] RBC (Bld) [#/Vol] 2.57 10*6/uL Low 4.2-5.4 [facility] Comment on above: Performed By: #### L 500.4050, L100.0100, L501.5200 ####[facility] [address] [place], [address] RDW SD 62.5 fl High 35.1-43.9 [facility] Comment on above: Performed By: #### L 500.4050, L100.0100, L501.5200 ####[facility] [address] [place], [address] WBC (Bld) [#/Vol] 2.6 10*3/uL Low 4.4-11.0 [facility] Comment on above: Performed By: #### L 500.4050, L100.0100, L501.5200 ####[facility] [address] [place], [address] Comprehensive Metabolic Prof ilon 05-27-2025 Albumin [Mass/Vol] 4.1 g/dL Normal 3.4-4.8 [facility] Comment on above: Performed By: #### L 500.4050, L100.0100, L501.5200 ####[facility] [address] [place], [address] Albumin/Globulin [Mass ratio] 1.3 {ratio} Normal 0.9-2.4 [facility] Comment on above: Performed By: #### L 500.4050, L100.0100, L501.5200 ####[facility] [address] [place], [address] ALK PHOS 63 U/L Normal 35-104 [facility] Comment on above: Performed By: #### L 500.4050, L100.0100, L501.5200 ####[facility] [address] [place], [address] ALT [Catalytic activity/Vol] 11 U/L Normal <=34 [facility] Comment on above: Performed By: #### L 500.4050, L100.0100, L501.5200 ####[facility] [address] [place], [address] AST [Catalytic activity/Vol] 22 U/L Normal <=31 [facility] Comment on above: Performed By: #### L 500.4050, L100.0100, L501.5200 ####[facility] [address] [place], [address] Bilirubin [Mass/Vol] 0.61 mg/dL Normal 0.00-1.30 [facility] Comment on above: Performed By: #### L 500.4050, L100.0100, L501.5200 ####[facility] [address] [place], [address] BUN/CRE 16.8 RATIO Normal 10-20 [facility] Comment on above: Performed By: #### L 500.4050, L100.0100, L501.5200 ####[facility] [address] [place], [address] Calcium [Mass/Vol] 9.5 mg/dL Normal 7.6-11.0 [facility] Comment on above: Performed By: #### L 500.4050, L100.0100, L501.5200 ####[facility] [address] [place], [address] Chloride [Moles/Vol] 104 mmol/L Normal 98-108 [facility] Comment on above: Performed By: #### L 500.4050, L100.0100, L501.5200 ####[facility] [address] [place], [address] CO2 [Moles/Vol] 24.1 mmol/L Normal 21.0-32.0 [facility] Comment on above: Performed By: #### L 500.4050, L100.0100, L501.5200 ####[facility] [address] [place], [address] Creatinine [Mass/Vol] 2.38 mg/dL High 0.70-1.20 [facility] Comment on above: Performed By: #### L 500.4050, L100.0100, L501.5200 ####[facility] [address] [place], [address] ECRCL 27.29 ml/min Low 50-250 [facility] Comment on above: Performed By: #### L 500.4050, L100.0100, L501.5200 ####[facility] [address] [place], [address] GAP 12 Normal 5-15 [facility] Comment on above: Performed By: #### L 500.4050, L100.0100, L501.5200 ####[facility] [address] [place], [address] GFR/1.73 sq M.predicted among non-blacks MDRD (S/P/Bld) [Vol rate/Area] 22 mL/min/{1.73_m2} Low >60 [facility] Comment on above: Result Comment: mL/m in/1.73m2 CKD-EPI Creatinine Equation (2020) Performed By: #### L 500.4050, L100.0100, L501.5200 ####[facility] [address] [place], [address] Globulin (S) [Mass/Vol] 3.1 g/dL Normal 2.2-4.2 [facility] Comment on above: Performed By: #### L 500.4050, L100.0100, L501.5200 ####[facility] [address] [place], [address] Glucose [Mass/Vol] 114 mg/dL High 70-99 [facility] Comment on above: Performed By: #### L 500.4050, L100.0100, L501.5200 ####[facility] [address] [place], [address] Potassium [Moles/Vol] 3.1 mmol/L Low 3.3-5.1 [facility] Comment on above: Performed By: #### L 500.4050, L100.0100, L501.5200 ####[facility] [address] [place], [address] Sodium [Moles/Vol] 141 mmol/L Normal 133-145 [facility] Comment on above: Performed By: #### L 500.4050, L100.0100, L501.5200 ####[facility] [address] [place], [address] T PROT 7.2 g/dL Normal 5.9-8.4 [facility] Comment on above: Performed By: #### L 500.4050, L100.0100, L501.5200 ####[facility] [address] [place], [address] Urea nitrogen [Mass/Vol] 40 mg/dL High 4-19 [facility] Comment on above: Performed By: #### L 500.4050, L100.0100, L501.5200 ####[facility] [address] [place], [address] Magnesiumon 05-27-2025 Magnesium [Mass/Vol] 1.2 mg/dL Low 1.5-2.2 [facility] Comment on above: Performed By: #### L 500.4050, L100.0100, L501.5200 ####[facility] [address] [place], [address] Oncology Visit Reporton 04-30 Oncology Visit Report Normal [facility] Urinalysis, Completeon 05-27 BACTERIA 2+ /hpf Normal None Seen [facility] Comment on above: Order Comment: CLEAN CATCH Performed By: #### L 400.0001 ####[facility] [address] [place], [address] EPI,SQUAMOUS 10-25 SEEN Normal 5-10 [facility] Comment on above: Order Comment: CLEAN CATCH Performed By: #### L 400.0001 ####[facility] [address] [place], [address] Mucus Ql (Urine sed) 2+ /hpf Normal [facility] Comment on above: Order Comment: CLEAN CATCH Performed By: #### L 400.0001 ####[facility] [address] [place], [address] WBC 25-50 SEEN Normal 0-5 [facility] Comment on above: Order Comment: CLEAN CATCH Performed By: #### L 400.0001 ####[facility] [address] [place], [address] RBC 0 SEEN Normal 0-5 [facility] Comment on above: Order Comment: CLEAN CATCH Performed By: #### L 400.0001 ####[facility] [address] [place], [address] CBC W/Diff, Automatedon 10-2 2-2024 Absolute Lymph 0.84 X10 3/uL Normal 0.83-4.51 [facility] Comment on above: Performed By: #### L 100.0100, L500.4050, L501.5200 ####[facility] [address] [place], [address] Absolute Neut 1.0 X10 3/uL Low 2.0-7.7 [facility] Comment on above: Performed By: #### L 100.0100, L500.4050, L501.5200 ####[facility] [address] [place], [address] Basophils/100 WBC (Bld) 0.9 % Normal 0-1 [facility] Comment on above: Performed By: #### L 100.0100, L500.4050, L501.5200 ####[facility] [address] [place], [address] Eosinophils/100 WBC (Bld) 1.3 % Normal 0-5 [facility] Comment on above: Performed By: #### L 100.0100, L500.4050, L501.5200 ####[facility] [address] [place], [address] Erythrocyte distribution width (RBC) [Ratio] 16.4 % High 11.6-14.6 [facility] Comment on above: Performed By: #### L 100.0100, L500.4050, L501.5200 ####[facility] [address] [place], [address] Hematocrit (Bld) [Volume fraction] 24.9 % Low 37-47 [facility] Comment on above: Performed By: #### L 100.0100, L500.4050, L501.5200 ####[facility] [address] [place], [address] Hemoglobin (Bld) [Mass/Vol] 8.3 g/dL Low 12.0-15.0 [facility] Comment on above: Performed By: #### L 100.0100, L500.4050, L501.5200 ####[facility] [address] [place], [address] IG% 0.000 Normal 0.0-0.9 [facility] Comment on above: Result Comment: IG% - Immature Granulocytes (promyelocytes, myelocytes andmetamyelocytes) > 1% indicates that a LEFT SHIFT is Present. Performed By: #### L 100.0100, L500.4050, L501.5200 ####[facility] [address] [place], [address] Lymphocytes/100 WBC (Bld) 37.5 % Normal 19-41 [facility] Comment on above: Performed By: #### L 100.0100, L500.4050, L501.5200 ####[facility] [address] [place], [address] MCH (RBC) [Entitic mass] 33.7 pg High 27.0-32.0 [facility] Comment on above: Performed By: #### L 100.0100, L500.4050, L501.5200 ####[facility] [address] [place], [address] MCHC (RBC) [Mass/Vol] 33.3 g/dL Normal 32-36 [facility] Comment on above: Performed By: #### L 100.0100, L500.4050, L501.5200 ####[facility] [address] [place], [address] MCV (RBC) [Entitic vol] 101.2 fL High 81-99 [facility] Comment on above: Performed By: #### L 100.0100, L500.4050, L501.5200 ####[facility] [address] [place], [address] Monocytes/100 WBC (Bld) 14.7 % High 0-10 [facility] Comment on above: Performed By: #### L 100.0100, L500.4050, L501.5200 ####[facility] [address] [place], [address] Neutrophils/100 WBC (Bld) 45.6 % Low 47-70 [facility] Comment on above: Performed By: #### L 100.0100, L500.4050, L501.5200 ####[facility] [address] [place], [address] Nucleated RBC (Bld) [#/Vol] 0 10*3/uL Normal 0-5 [facility] Comment on above: Performed By: #### L 100.0100, L500.4050, L501.5200 ####[facility] [address] [place], [address] Platelet mean volume (Bld) [Entitic vol] 11.9 fL Normal 6.2-12.0 [facility] Comment on above: Performed By: #### L 100.0100, L500.4050, L501.5200 ####[facility] [address] [place], [address] Platelets (Bld) [#/Vol] 166 10*3/uL Normal 150-450 [facility] Comment on above: Performed By: #### L 100.0100, L500.4050, L501.5200 ####[facility] [address] [place], [address] RBC (Bld) [#/Vol] 2.46 10*6/uL Low 4.2-5.4 [facility] Comment on above: Performed By: #### L 100.0100, L500.4050, L501.5200 ####[facility] [address] [place], [address] RDW SD 59.3 fl High 35.1-43.9 [facility] Comment on above: Performed By: #### L 100.0100, L500.4050, L501.5200 ####[facility] [address] [place], [address] WBC (Bld) [#/Vol] 2.2 10*3/uL Low 4.4-11.0 [facility] Comment on above: Performed By: #### L 100.0100, L500.4050, L501.5200 ####[facility] [address] [place], [address] Comprehensive Metabolic Prof ilon 05-20-2025 Albumin [Mass/Vol] 4.1 g/dL Normal 3.4-4.8 [facility] Comment on above: Performed By: #### L 100.0100, L500.4050, L501.5200 ####[facility] [address] [place], [address] Albumin/Globulin [Mass ratio] 1.4 {ratio} Normal 0.9-2.4 [facility] Comment on above: Performed By: #### L 100.0100, L500.4050, L501.5200 ####[facility] [address] [place], [address] ALK PHOS 74 U/L Normal 35-104 [facility] Comment on above: Performed By: #### L 100.0100, L500.4050, L501.5200 ####[facility] [address] [place], [address] ALT [Catalytic activity/Vol] 15 U/L Normal <=34 [facility] Comment on above: Performed By: #### L 100.0100, L500.4050, L501.5200 ####[facility] [address] [place], [address] AST [Catalytic activity/Vol] 17 U/L Normal <=31 [facility] Comment on above: Performed By: #### L 100.0100, L500.4050, L501.5200 ####[facility] [address] [place], [address] Bilirubin [Mass/Vol] 0.42 mg/dL Normal 0.00-1.30 [facility] Comment on above: Performed By: #### L 100.0100, L500.4050, L501.5200 ####[facility] [address] [place], [address] BUN/CRE 15.1 RATIO Normal 10-20 [facility] Comment on above: Performed By: #### L 100.0100, L500.4050, L501.5200 ####[facility] [address] [place], [address] Calcium [Mass/Vol] 10.0 mg/dL Normal 7.6-11.0 [facility] Comment on above: Performed By: #### L 100.0100, L500.4050, L501.5200 ####[facility] [address] [place], [address] Chloride [Moles/Vol] 105 mmol/L Normal 98-108 [facility] Comment on above: Performed By: #### L 100.0100, L500.4050, L501.5200 ####[facility] [address] [place], [address] CO2 [Moles/Vol] 23.8 mmol/L Normal 21.0-32.0 [facility] Comment on above: Performed By: #### L 100.0100, L500.4050, L501.5200 ####[facility] [address] [place], [address] Creatinine [Mass/Vol] 2.38 mg/dL High 0.70-1.20 [facility] Comment on above: Performed By: #### L 100.0100, L500.4050, L501.5200 ####[facility] [address] [place], [address] ECRCL 27.29 ml/min Low 50-250 [facility] Comment on above: Performed By: #### L 100.0100, L500.4050, L501.5200 ####[facility] [address] [place], [address] GAP 10 Normal 5-15 [facility] Comment on above: Performed By: #### L 100.0100, L500.4050, L501.5200 ####[facility] [address] [place], [address] GFR/1.73 sq M.predicted among non-blacks MDRD (S/P/Bld) [Vol rate/Area] 22 mL/min/{1.73_m2} Low >60 [facility] Comment on above: Result Comment: mL/m in/1.73m2 CKD-EPI Creatinine Equation (2020) Performed By: #### L 100.0100, L500.4050, L501.5200 ####[facility] [address] [place], [address] Globulin (S) [Mass/Vol] 2.9 g/dL Normal 2.2-4.2 [facility] Comment on above: Performed By: #### L 100.0100, L500.4050, L501.5200 ####[facility] [address] [place], [address] Glucose [Mass/Vol] 115 mg/dL High 70-99 [facility] Comment on above: Performed By: #### L 100.0100, L500.4050, L501.5200 ####[facility] [address] [place], [address] Potassium [Moles/Vol] 4.2 mmol/L Normal 3.3-5.1 [facility] Comment on above: Performed By: #### L 100.0100, L500.4050, L501.5200 ####[facility] [address] [place], [address] Sodium [Moles/Vol] 139 mmol/L Normal 133-145 [facility] Comment on above: Performed By: #### L 100.0100, L500.4050, L501.5200 ####[facility] [address] [place], [address] T PROT 7.0 g/dL Normal 5.9-8.4 [facility] Comment on above: Performed By: #### L 100.0100, L500.4050, L501.5200 ####[facility] [address] [place], [address] Urea nitrogen [Mass/Vol] 36 mg/dL High 4-19 [facility] Comment on above: Performed By: #### L 100.0100, L500.4050, L501.5200 ####[facility] [address] [place], [address] Magnesiumon 05-20-2025 Magnesium [Mass/Vol] 1.4 mg/dL Low 1.5-2.2 [facility] Comment on above: Performed By: #### L 100.0100, L500.4050, L501.5200 ####[facility] [address] [place], [address] Protein, Urine 24HRon 2024 UR COLLECT TIME 24.0 HOURS Normal 24.0 [facility] Comment on above: Performed By: #### L 500.9000 ####[facility] [address] [place], [address] UR TOTAL VOLUME 1175 mL Normal [facility] Comment on above: Performed By: #### L 500.9000 ####[facility] [address] [place], [address] CA 15-3on 05-15-2025 CA 15-3 18.6 U/mL Normal 0.0-25.0 [facility] Comment on above: Result Comment: [employer] Electrochemiluminescence Immunoassay(ECLIA)Values obtained with different assay methods or kits cannotbe used interchangeably. Results cannot be interpreted asabsolute evidence of the presence or absence of malignantdisease.Performed at: [address] [id number] Director: Joe Olivier PhD, Phone: [phone] Performed By: #### L 3100.5000, L3100.2300, L3100.5030, L3100.5040 ####[facility] [address] [place], [address] CA 27.29on 05-15-2025 CA 27.29 22.5 U/mL Normal 0.0-38.6 [facility] Comment on above: Result Comment: [facility] indidebt [employer] Immunochemiluminometric Methodology (ICMA)Values obtained with different assay methods or kits cannotbe used interchangeably. Results cannot be interpreted asabsolute evidence of the presence or absence of malignantdisease. Performed By: #### L 3100.5000, L3100.2300, L3100.5030, L3100.5040 ####[facility] [address] [place], [address] Cancer Antigen 125on 025 CA 125 7.7 U/mL Normal 0.0-38.1 [facility] Comment on above: Result Comment: [employer] Electrochemiluminescence Immunoassay(ECLIA)Values obtained with different assay methods or kits cannotbe used interchangeably. Results cannot be interpreted asabsolute evidence of the presence or absence of malignantdisease. Performed By: #### L 3100.5000, L3100.2300, L3100.5030, L3100.5040 ####[facility] [address] [place], [address] Carcinoembryonic Antigenon 1 CEA 3.1 ng/mL Normal 0.0-4.7 [facility] Comment on above: Result Comment: Nons mokers <3.9 Smokers <5.6[employer] Electrochemiluminescence Immunoassay(ECLIA)Values obtained with different assay methods or kitscannot be used interchangeably. Results cannot beinterpreted as absolute evidence of the presence orabsence of malignant disease. Performed By: #### L 3100.5000, L3100.2300, L3100.5030, L3100.5040 ####[facility] [address] [place], [address] CBC W/Diff, Automatedon 10- PLT EST SLT DEC Normal ADEQ [facility] Comment on above: Performed By: #### L 501.5200, L100.0100, L500.4050 ####[facility] [address] [place], [address] [facility] Albumin [Mass/Vol] 3.9 g/dL Normal 3.4-4.8 [facility] Comment on above: Performed By: #### L 501.5200, L100.0100, L500.4050 ####[facility] [address] [place], [address] Albumin/Globulin [Mass ratio] 1.3 {ratio} Normal 0.9-2.4 [facility] Comment on above: Performed By: #### L 501.5200, L100.0100, L500.4050 ####[facility] [address] [place], [address] ALK PHOS 81 U/L Normal 35-104 [facility] Comment on above: Performed By: #### L 501.5200, L100.0100, L500.4050 ####[facility] [address] [place], [address] ALT [Catalytic activity/Vol] 15 U/L Normal <=34 [facility] Comment on above: Performed By: #### L 501.5200, L100.0100, L500.4050 ####[facility] [address] [place], [address] AST [Catalytic activity/Vol] 18 U/L Normal <=31 [facility] Comment on above: Performed By: #### L 501.5200, L100.0100, L500.4050 ####[facility] [address] [place], [address] Bilirubin [Mass/Vol] 0.28 mg/dL Normal 0.00-1.30 [facility] Comment on above: Performed By: #### L 501.5200, L100.0100, L500.4050 ####[facility] [address] [place], [address] BUN/CRE 20.9 RATIO High 10-20 [facility] Comment on above: Performed By: #### L 501.5200, L100.0100, L500.4050 ####[facility] [address] [place], [address] Calcium [Mass/Vol] 9.5 mg/dL Normal 7.6-11.0 [facility] Comment on above: Performed By: #### L 501.5200, L100.0100, L500.4050 ####[facility] [address] [place], [address] Chloride [Moles/Vol] 105 mmol/L Normal 98-108 [facility] Comment on above: Performed By: #### L 501.5200, L100.0100, L500.4050 ####[facility] [address] [place], [address] CO2 [Moles/Vol] 22.1 mmol/L Normal 21.0-32.0 [facility] Comment on above: Performed By: #### L 501.5200, L100.0100, L500.4050 ####[facility] [address] [place], [address] Creatinine [Mass/Vol] 2.32 mg/dL High 0.70-1.20 [facility] Comment on above: Performed By: #### L 501.5200, L100.0100, L500.4050 ####[facility] [address] [place], [address] ECRCL 28.00 ml/min Low 50-250 [facility] Comment on above: Performed By: #### L 501.5200, L100.0100, L500.4050 ####[facility] [address] [place], [address] GAP 11 Normal 5-15 [facility] Comment on above: Performed By: #### L 501.5200, L100.0100, L500.4050 ####[facility] [address] [place], [address] GFR/1.73 sq M.predicted among non-blacks MDRD (S/P/Bld) [Vol rate/Area] 22 mL/min/{1.73_m2} Low >60 [facility] Comment on above: Result Comment: mL/m in/1.73m2 CKD-EPI Creatinine Equation (2020) Performed By: #### L 501.5200, L100.0100, L500.4050 ####[facility] [address] [place], [address] Globulin (S) [Mass/Vol] 3.0 g/dL Normal 2.2-4.2 [facility] Comment on above: Performed By: #### L 501.5200, L100.0100, L500.4050 ####[facility] [address] [place], [address] Glucose [Mass/Vol] 121 mg/dL High 70-99 [facility] Comment on above: Performed By: #### L 501.5200, L100.0100, L500.4050 ####[facility] [address] [place], [address] Potassium [Moles/Vol] 4.4 mmol/L Normal 3.3-5.1 [facility] Comment on above: Performed By: #### L 501.5200, L100.0100, L500.4050 ####[facility] [address] [place], [address] Sodium [Moles/Vol] 138 mmol/L Normal 133-145 [facility] Comment on above: Performed By: #### L 501.5200, L100.0100, L500.4050 ####[facility] [address] [place], [address] T PROT 7.0 g/dL Normal 5.9-8.4 [facility] Comment on above: Performed By: #### L 501.5200, L100.0100, L500.4050 ####[facility] [address] [place], [address] Urea nitrogen [Mass/Vol] 48 mg/dL High 4-19 [facility] Comment on above: Performed By: #### L 501.5200, L100.0100, L500.4050 ####[facility] [address] [place], [address] Magnesiumon 05-13-2025 Magnesium [Mass/Vol] 1.3 mg/dL Low 1.5-2.2 [facility] Comment on above: Performed By: #### L 501.5200, L100.0100, L500.4050 ####[facility] [address] [place], [address] Urinalysis, Completeon 05-13 BACTERIA Normal None Seen [facility] Comment on above: Order Comment: CLEAN CATCH Result Comment: NOT NEEDED Performed By: #### L 400.0001 ####[facility] [address] [place], [address] BILIRUBIN URINE Normal Negative [facility] Comment on above: Order Comment: CLEAN CATCH Result Comment: NOT NEEDED Performed By: #### L 400.0001 ####[facility] [address] [place], [address] Clarity (U) Normal Clear [facility] Comment on above: Order Comment: CLEAN CATCH Result Comment: NOT NEEDED Performed By: #### L 400.0001 ####[facility] [address] [place], [address] Color (U) Normal Yellow [facility] Comment on above: Order Comment: CLEAN CATCH Result Comment: NOT NEEDED Performed By: #### L 400.0001 ####[facility] [address] [place], [address] EPI,SQUAMOUS Normal 5-10 [facility] Comment on above: Order Comment: CLEAN CATCH Result Comment: NOT NEEDED Performed By: #### L 400.0001 ####[facility] [address] [place], [address] GLUCOSE, UR Normal Normal [facility] Comment on above: Order Comment: CLEAN CATCH Result Comment: NOT NEEDED Performed By: #### L 400.0001 ####[facility] [address] [place], [address] KETONE UR Normal Negative [facility] Comment on above: Order Comment: CLEAN CATCH Result Comment: NOT NEEDED Performed By: #### L 400.0001 ####[facility] [address] [place], [address] LEUK ESTERASE Normal Negative [facility] Comment on above: Order Comment: CLEAN CATCH Result Comment: NOT NEEDED Performed By: #### L 400.0001 ####[facility] [address] [place], [address] Mucus Ql (Urine sed) Normal [facility] Comment on above: Order Comment: CLEAN CATCH Result Comment: NOT NEEDED Performed By: #### L 400.0001 ####[facility] [address] [place], [address] Nitrite Ql (U) Normal Negative [facility] Comment on above: Order Comment: CLEAN CATCH Result Comment: NOT NEEDED Performed By: #### L 400.0001 ####[facility] [address] [place], [address] OCCULT BLOOD-UR Normal Negative [facility] Comment on above: Order Comment: CLEAN CATCH Result Comment: NOT NEEDED Performed By: #### L 400.0001 ####[facility] [address] [place], [address] pH UR Normal 5.0 - 8.0 [facility] Comment on above: Order Comment: CLEAN CATCH Result Comment: NOT NEEDED Performed By: #### L 400.0001 ####[facility] [address] [place], [address] PROT DIPSTX Normal Negative [facility] Comment on above: Order Comment: CLEAN CATCH Result Comment: NOT NEEDED Performed By: #### L 400.0001 ####[facility] [address] [place], [address] RBC Normal 0-5 [facility] Comment on above: Order Comment: CLEAN CATCH Result Comment: NOT NEEDED Performed By: #### L 400.0001 ####[facility] [address] [place], [address] SP.GR. DIPSTX Normal 1.002-1.03 0 [facility] Comment on above: Order Comment: CLEAN CATCH Result Comment: NOT NEEDED Performed By: #### L 400.0001 ####[facility] [address] [place], [address] UR Preservative Normal [facility] Comment on above: Order Comment: CLEAN CATCH Result Comment: NOT NEEDED Performed By: #### L 400.0001 ####[facility] [address] [place], [address] UROBILI Normal Normal [facility] Comment on above: Order Comment: CLEAN CATCH Result Comment: NOT NEEDED Performed By: #### L 400.0001 ####[facility] [address] [place], [address] WBC Normal 0-5 [facility] Comment on above: Order Comment: CLEAN CATCH Result Comment: NOT NEEDED Performed By: #### L 400.0001 ####[facility] [address] [place], [address] Orthopedic Visit Reporton Orthopedic Visit Report Normal [facility] Absolute lymphocyte countOrd ered By: David Corral on 05-06-2025 Lymphocytes Auto (Unsp spec) [#/Vol] 1.27 10*3/uL 0.83-4.51 [facility] Anion gap in Serum or Plasma Ordered By: David Castellonventura on 05-06-2025 Anion gap [Moles/Vol] 12 mmol/L 5- [facility] Automated lymphocyte count a s percentage of total leukocytesOrdered By: David Castellonventura on 05-06-2025 Lymphocytes/100 WBC Auto (Unsp spec) 31.4 % - [facility] BUN/creatinine ratioOrdered By: David [facility] on 05-06-2025 Urea nitrogen/Creatinine [Mass ratio] 21.3 mg/mg High 10- [facility] Basophil percentageOrdered B y: David Castellonventura on 05-06-2025 Basophils/100 WBC (Bld) 0.5 % 0-1 [facility] Bilirubin Test strip Ql (U)O rdered By: David Castellonventura on 05-06-2025 Bilirubin Ql (U) Negative Negative [facility] Bilirubin, totalOrdered By: David Castellonventura on 05-06-2025 Bilirubin [Mass/Vol] 0.50 mg/dL 0.00-1.30 [facility] CBC W/Diff, Automatedon Absolute Lymph 1.27 X10 3/uL Normal 0.83-4.51 [facility] Comment on above: Performed By: #### L 500.4050, L100.0100, L501.5200 ####[facility] [address] [place], [address] Absolute Neut 2.4 X10 3/uL Normal 2.0-7.7 [facility] Comment on above: Performed By: #### L 500.4050, L100.0100, L501.5200 ####[facility] [address] [place], [address] Basophils/100 WBC (Bld) 0.5 % Normal 0-1 [facility] Comment on above: Performed By: #### L 500.4050, L100.0100, L501.5200 ####[facility] [address] [place], [address] Eosinophils/100 WBC (Bld) 1.7 % Normal 0-5 [facility] Comment on above: Performed By: #### L 500.4050, L100.0100, L501.5200 ####[facility] [address] [place], [address] Erythrocyte distribution width (RBC) [Ratio] 15.9 % High 11.6-14.6 [facility] Comment on above: Performed By: #### L 500.4050, L100.0100, L501.5200 ####[facility] [address] [place], [address] Hematocrit (Bld) [Volume fraction] 28.6 % Low 37-47 [facility] Comment on above: Performed By: #### L 500.4050, L100.0100, L501.5200 ####[facility] [address] [place], [address] Hemoglobin (Bld) [Mass/Vol] 9.3 g/dL Low 12.0-15.0 [facility] Comment on above: Performed By: #### L 500.4050, L100.0100, L501.5200 ####[facility] [address] [place], [address] IG% 0.500 Normal 0.0-0.9 [facility] Comment on above: Result Comment: IG% - Immature Granulocytes (promyelocytes, myelocytes andmetamyelocytes) > 1% indicates that a LEFT SHIFT is Present. Performed By: #### L 500.4050, L100.0100, L501.5200 ####[facility] [address] [place], [address] Lymphocytes/100 WBC (Bld) 31.4 % Normal 19-41 [facility] Comment on above: Performed By: #### L 500.4050, L100.0100, L501.5200 ####[facility] [address] [place], [address] MCH (RBC) [Entitic mass] 32.6 pg High 27.0-32.0 [facility] Comment on above: Performed By: #### L 500.4050, L100.0100, L501.5200 ####[facility] [address] [place], [address] MCHC (RBC) [Mass/Vol] 32.5 g/dL Normal 32-36 [facility] Comment on above: Performed By: #### L 500.4050, L100.0100, L501.5200 ####[facility] [address] [place], [address] MCV (RBC) [Entitic vol] 100.4 fL High 81-99 [facility] Comment on above: Performed By: #### L 500.4050, L100.0100, L501.5200 ####[facility] [address] [place], [address] Monocytes/100 WBC (Bld) 6.7 % Normal 0-10 [facility] Comment on above: Performed By: #### L 500.4050, L100.0100, L501.5200 ####[facility] [address] [place], [address] Neutrophils/100 WBC (Bld) 59.2 % Normal 47-70 [facility] Comment on above: Performed By: #### L 500.4050, L100.0100, L501.5200 ####[facility] [address] [place], [address] Nucleated RBC (Bld) [#/Vol] 0 10*3/uL Normal 0-5 [facility] Comment on above: Performed By: #### L 500.4050, L100.0100, L501.5200 ####[facility] [address] [place], [address] Platelet mean volume (Bld) [Entitic vol] 12.0 fL Normal 6.2-12.0 [facility] Comment on above: Performed By: #### L 500.4050, L100.0100, L501.5200 ####[facility] [address] [place], [address] Platelets (Bld) [#/Vol] 108 10*3/uL Low 150-450 [facility] Comment on above: Performed By: #### L 500.4050, L100.0100, L501.5200 ####[facility] [address] [place], [address] RBC (Bld) [#/Vol] 2.85 10*6/uL Low 4.2-5.4 [facility] Comment on above: Performed By: #### L 500.4050, L100.0100, L501.5200 ####[facility] [address] [place], [address] RDW SD 57.9 fl High 35.1-43.9 [facility] Comment on above: Performed By: #### L 500.4050, L100.0100, L501.5200 ####[facility] [address] [place], [address] WBC (Bld) [#/Vol] 4.1 10*3/uL Low 4.4-11.0 [facility] Comment on above: Performed By: #### L 500.4050, L100.0100, L501.5200 ####[facility] [address] [place], [address] Carbon dioxide, total [Moles /volume] in Central venous bloodOrdered By: David Corral on 05-06-2025 CO2 [Moles/Vol] 22.9 mmol/L 21.0-32.0 [facility] Chloride assayOrdered By: Nisa Corral on 05-06-2025 Chloride [Moles/Vol] 106 mmol/L 98-108 [facility] Comprehensive Metabolic Prof ilon 05-06-2025 Albumin [Mass/Vol] 4.2 g/dL Normal 3.4-4.8 [facility] Comment on above: Performed By: #### L 500.4050, L100.0100, L501.5200 ####[facility] [address] [place], [address] Albumin/Globulin [Mass ratio] 1.4 {ratio} Normal 0.9-2.4 [facility] Comment on above: Performed By: #### L 500.4050, L100.0100, L501.5200 ####[facility] [address] [place], [address] ALK PHOS 78 U/L Normal 35-104 [facility] Comment on above: Performed By: #### L 500.4050, L100.0100, L501.5200 ####[facility] [address] [place], [address] ALT [Catalytic activity/Vol] 11 U/L Normal <=34 [facility] Comment on above: Performed By: #### L 500.4050, L100.0100, L501.5200 ####[facility] [address] [place], [address] AST [Catalytic activity/Vol] 17 U/L Normal <=31 [facility] Comment on above: Performed By: #### L 500.4050, L100.0100, L501.5200 ####[facility] [address] [place], [address] Bilirubin [Mass/Vol] 0.50 mg/dL Normal 0.00-1.30 [facility] Comment on above: Performed By: #### L 500.4050, L100.0100, L501.5200 ####[facility] [address] [place], [address] BUN/CRE 21.3 RATIO High 10-20 [facility] Comment on above: Performed By: #### L 500.4050, L100.0100, L501.5200 ####[facility] [address] [place], [address] Calcium [Mass/Vol] 9.8 mg/dL Normal 7.6-11.0 [facility] Comment on above: Performed By: #### L 500.4050, L100.0100, L501.5200 ####[facility] [address] [place], [address] Chloride [Moles/Vol] 106 mmol/L Normal 98-108 [facility] Comment on above: Performed By: #### L 500.4050, L100.0100, L501.5200 ####[facility] [address] [place], [address] CO2 [Moles/Vol] 22.9 mmol/L Normal 21.0-32.0 [facility] Comment on above: Performed By: #### L 500.4050, L100.0100, L501.5200 ####[facility] [address] [place], [address] Creatinine [Mass/Vol] 2.22 mg/dL High 0.70-1.20 [facility] Comment on above: Performed By: #### L 500.4050, L100.0100, L501.5200 ####[facility] [address] [place], [address] ECRCL 29.55 ml/min Low 50-250 [facility] Comment on above: Performed By: #### L 500.4050, L100.0100, L501.5200 ####[facility] [address] [place], [address] GAP 12 Normal 5-15 [facility] Comment on above: Performed By: #### L 500.4050, L100.0100, L501.5200 ####[facility] [address] [place], [address] GFR/1.73 sq M.predicted among non-blacks MDRD (S/P/Bld) [Vol rate/Area] 23 mL/min/{1.73_m2} Low >60 [facility] Comment on above: Result Comment: mL/m in/1.73m2 CKD-EPI Creatinine Equation (2020) Performed By: #### L 500.4050, L100.0100, L501.5200 ####[facility] [address] [place], [address] Globulin (S) [Mass/Vol] 3.1 g/dL Normal 2.2-4.2 [facility] Comment on above: Performed By: #### L 500.4050, L100.0100, L501.5200 ####[facility] [address] [place], [address] Glucose [Mass/Vol] 110 mg/dL High 70-99 [facility] Comment on above: Performed By: #### L 500.4050, L100.0100, L501.5200 ####[facility] [address] [place], [address] Potassium [Moles/Vol] 3.9 mmol/L Normal 3.3-5.1 [facility] Comment on above: Performed By: #### L 500.4050, L100.0100, L501.5200 ####[facility] [address] [place], [address] Sodium [Moles/Vol] 141 mmol/L Normal 133-145 [facility] Comment on above: Performed By: #### L 500.4050, L100.0100, L501.5200 ####[facility] [address] [place], [address] T PROT 7.2 g/dL Normal 5.9-8.4 [facility] Comment on above: Performed By: #### L 500.4050, L100.0100, L501.5200 ####[facility] [address] [place], [address] Urea nitrogen [Mass/Vol] 47 mg/dL High 4-19 [facility] Comment on above: Performed By: #### L 500.4050, L100.0100, L501.5200 ####[facility] [address] [place], [address] Eosinophil percentageOrdered By: David Corral on 05-06-2025 Eosinophils/100 WBC (Bld) 1.7 % 0-5 [facility] Erythrocyte distribution wid th ratioOrdered By: David Corral on 05-06-2025 Erythrocyte distribution width (RBC) [Ratio] 15.9 % High 11.6-14.6 [facility] Erythrocyte distribution wid th standard deviationOrdered By: David Corral on 05-06-2025 Erythrocyte distribution width (RBC) [Ratio] 57.9 fl High 35.1-43.9 [facility] Glomerular filtration rate ( GFR) estimation/1.73 sq m using serum, plasma, or whole bOrdered By: David Corral on 05-06-2025 GFR/1.73 sq M.predicted among non-blacks MDRD (S/P/Bld) [Vol rate/Area] 23 mL/min/{1.73_m2} Low >60 [facility] Hematocrit Auto (Bld) [Volum e fraction]Ordered By: David Corral on 05-06-2025 Hematocrit (Bld) [Volume fraction] 28.6 % Low 37-47 [facility] Hemoglobin measurementOrdere d By: David Corral on 05-06-2025 Hemoglobin (Bld) [Mass/Vol] 9.3 g/dL Low 12.0-15.0 [facility] Immature granulocytes/100 WB C Auto (Bld)Ordered By: David Corral on 05-06-2025 Immature granulocytes/100 WBC (Bld) 0.500 % 0.0-0.9 [facility] Ketones Test strip Ql (U)Ord ered By: David Corral on 05-06-2025 Ketones Ql (U) Negative Negative [facility] MCV (mean corpuscular volume ) determinationOrdered By: David Corral on 05-06-2025 MCV (RBC) [Entitic vol] 100.4 fL High 81-99 [facility] Magnesiumon 05-06-2025 Magnesium [Mass/Vol] 1.2 mg/dL Low 1.5-2.2 [facility] Comment on above: Performed By: #### L 500.4050, L100.0100, L501.5200 ####[facility] [address] [facility] [place], [address] Magnesium measurement (mass/ volume)Ordered By: David Corral on 05-06-2025 Magnesium (Unsp spec) [Mass/Vol] 1.2 mg/dL Low 1.5-2.2 [facility] Mean corpuscular hemoglobin (MCH) determinationOrdered By: David Corral on 05-06-2025 MCH (RBC) [Entitic mass] 32.6 pg High 27.0-32.0 [facility] Monocyte percentageOrdered B y: David Corral on 05-06-2025 Monocytes/100 WBC (Bld) 6.7 % 0-10 [facility] Mucus LM Ql (Urine sed)Order ed By: David Corral on 05-06-2025 Mucus Ql (Urine sed) 0 SEEN /hpf [facility] Neutrophil percentageOrdered By: David Corral on 05-06-2025 Neutrophils/100 WBC (Bld) 59.2 % 47-70 [facility] Nitrite Test strip Ql (U)Ord ered By: David Corral on 05-06-2025 Nitrite Ql (U) Negative Negative [facility] No Panel InformationOrdered By: David Corral on 05-06-2025 17 U/L <32 [facility] Oncology Visit Reporton 10-0 Oncology Visit Report Normal [facility] Platelet countOrdered By: Nisa Corral on 05-06-2025 Platelets (Bld) [#/Vol] 108 10*3/uL Low 150-450 [facility] Potassium measurement (mass/ volume)Ordered By: David Corral on 05-06-2025 Potassium (Unsp spec) [Mass/Vol] 3.9 mmol/L 3.3-5.1 [facility] Protein Test strip Ql (U)Ord ered By: David Corral on 05-06-2025 Protein Ql (U) 100 mg/dl High Negative [facility] RBC Auto (Bld) [#/Vol]Ordere d By: David Corral on 05-06-2025 RBC (Bld) [#/Vol] 2.85 10*6/uL Low 4.2-5.4 [facility] Serum creatinine measurement (mass/volume)Ordered By: David Corral on 05-06-2025 Creatinine [Mass/Vol] 2.22 mg/dL High 0.70-1.20 [facility] Serum globulin measurementOr dered By: David Corral on 05-06-2025 Globulin (S) [Mass/Vol] 3.1 g/dL 2.2-4.2 [facility] Serum glucose measurement (m ass/volume)Ordered By: David Corral on 05-06-2025 Glucose [Mass/Vol] 110 mg/dL High 70-99 [facility] Serum or plasma alanine garcia otransferase (ALT) measurementOrdered By: David Corral on 05-06-2025 ALT [Catalytic activity/Vol] 11 U/L <35 [facility] Serum or plasma albumin addie urement (mass/volume)Ordered By: David Corral on 05-06-2025 Albumin [Mass/Vol] 4.2 g/dL 3.4-4.8 [facility] Serum or plasma albumin/glob ulin mass ratioOrdered By: David Corral on 05-06-2025 Albumin/Globulin [Mass ratio] 1.4 {ratio} 0.9-2.4 [facility] Serum or plasma alkaline jabier sphatase measurementOrdered By: David Corral on 05-06-2025 ALP [Catalytic activity/Vol] 78 U/L 35-104 [facility] Serum or plasma calcium addie urement (mass/volume)Ordered By: David Corral on 05-06-2025 Calcium [Mass/Vol] 9.8 mg/dL 7.6-11.0 [facility] Serum or plasma urea nitroge n measurement (mass/volume)Ordered By: David Corral on 05-06-2025 Urea nitrogen [Mass/Vol] 47 mg/dL High 4-19 [facility] Sodium levelOrdered By: Jacky Corral on 05-06-2025 Sodium [Moles/Vol] 141 mmol/L 133-145 [facility] Squamous epithelial cells de tection in urine sediment by light microscopyOrdered By: David Corral on 05-06-2025 Epithelial cells.squamous LM Ql (Urine sed) 10-25 SEEN /hpf 5-10 [facility] Total proteinOrdered By: Leonard Corral on 05-06-2025 Protein [Mass/Vol] 7.2 g/dL 5.9-8.4 [facility] Urinalysis, Completeon 05-06 BACTERIA 2+ /hpf Normal None Seen [facility] Comment on above: Order Comment: FRANDY BRYANTOR TO SPECIFY Performed By: #### L 400.0001 ####[facility] [address] [place], [address] EPI,SQUAMOUS 10-25 SEEN Normal 5-10 [facility] Comment on above: Order Comment: FRANDY BRYANTOR TO SPECIFY Performed By: #### L 400.0001 ####[facility] [address] [place], [address] WBC 25-50 SEEN Normal 0-5 [facility] Comment on above: Order Comment: FRANDY CTOR TO SPECIFY Performed By: #### L 400.0001 ####[facility] [address] [place], [address] Mucus Ql (Urine sed) 0 SEEN Normal [facility] Comment on above: Order Comment: FRANDY CTOR TO SPECIFY Performed By: #### L 400.0001 ####[facility] [address] [place], [place], [id number] RBC 0 SEEN Normal 0-5 [facility] Comment on above: Order Comment: FRANDY CTOR TO SPECIFY Performed By: #### L 400.0001 ####[facility] [address] [place], [place], [id number] Urine clarityOrdered By: Leonard Corral on 05-06-2025 Clarity (U) Cloudy Clear [facility] Urine color determinationOrd ered By: David Corral on 05-06-2025 Color (U) Yellow Yellow [facility] Urine glucose detectionOrder ed By: David Corral on 05-06-2025 Glucose Ql (U) Normal mg/dl Normal [facility] Urine leukocyte esterase det ection by dipstickOrdered By: David Corral on 05-06-2025 Leukocyte esterase Test strip Ql (U) 500 /ul High Negative [facility] Urine pHOrdered By: David gillespie on 05-06-2025 pH (U) 6.0 [pH] 5.0 - 8.0 [facility] Urine sediment bacteria coun t by microscopy (number/high power field)Ordered By: David Corral on 05-06-2025 Bacteria LM.HPF (Urine sed) [#/Area] 2 /[HPF] None Seen [facility] Urine specific gravity measu rementOrdered By: David Corral on 05-06-2025 Specific gravity (U) [Rel density] 1.020 1.002-1.03 0 [facility] Urine urobilinogen measureme ntOrdered By: David Corral on 05-06-2025 Urobilinogen Ql (U) Normal mg/dl Normal [facility] White blood cell (WBC) count Ordered By: David Corral on 05-06-2025 WBC (Bld) [#/Vol] 4.1 10*3/uL Low 4.4-11.0 [facility] White blood cell countOrdere d By: David Corral on 05-06-2025 White blood cell count 25-50 SEEN /hpf 0-5 [facility] CBC W/Diff, Automatedon 10-0 1-2024 Absolute Lymph 0.97 X10 3/uL Normal 0.83-4.51 [facility] Comment on above: Performed By: #### L 500.4050, L501.5200, L100.0100 ####[facility] [address] [place], [address] Absolute Neut 2.0 X10 3/uL Normal 2.0-7.7 [facility] Comment on above: Performed By: #### L 500.4050, L501.5200, L100.0100 ####[facility] [address] [place], [address] Basophils/100 WBC (Bld) 0.9 % Normal 0-1 [facility] Comment on above: Performed By: #### L 500.4050, L501.5200, L100.0100 ####[facility] [address] [place], [address] Eosinophils/100 WBC (Bld) 3.3 % Normal 0-5 [facility] Comment on above: Performed By: #### L 500.4050, L501.5200, L100.0100 ####[facility] [address] [place], [address] Erythrocyte distribution width (RBC) [Ratio] 15.0 % High 11.6-14.6 [facility] Comment on above: Performed By: #### L 500.4050, L501.5200, L100.0100 ####[facility] [address] [place], [address] Hematocrit (Bld) [Volume fraction] 29.1 % Low 37-47 [facility] Comment on above: Performed By: #### L 500.4050, L501.5200, L100.0100 ####[facility] [address] [place], [address] Hemoglobin (Bld) [Mass/Vol] 9.4 g/dL Low 12.0-15.0 [facility] Comment on above: Performed By: #### L 500.4050, L501.5200, L100.0100 ####[facility] [address] [place], [address] IG% 0.600 Normal 0.0-0.9 [facility] Comment on above: Result Comment: IG% - Immature Granulocytes (promyelocytes, myelocytes andmetamyelocytes) > 1% indicates that a LEFT SHIFT is Present. Performed By: #### L 500.4050, L501.5200, L100.0100 ####[facility] [address] [place], [address] Lymphocytes/100 WBC (Bld) 28.9 % Normal 19-41 [facility] Comment on above: Performed By: #### L 500.4050, L501.5200, L100.0100 ####[facility] [address] [place], [address] MCH (RBC) [Entitic mass] 32.1 pg High 27.0-32.0 [facility] Comment on above: Performed By: #### L 500.4050, L501.5200, L100.0100 ####[facility] [address] [place], [address] MCHC (RBC) [Mass/Vol] 32.3 g/dL Normal 32-36 [facility] Comment on above: Performed By: #### L 500.4050, L501.5200, L100.0100 ####[facility] [address] [place], [address] MCV (RBC) [Entitic vol] 99.3 fL High 81-99 [facility] Comment on above: Performed By: #### L 500.4050, L501.5200, L100.0100 ####[facility] [address] [place], [address] Monocytes/100 WBC (Bld) 7.4 % Normal 0-10 [facility] Comment on above: Performed By: #### L 500.4050, L501.5200, L100.0100 ####[facility] [address] [place], [address] Neutrophils/100 WBC (Bld) 58.9 % Normal 47-70 [facility] Comment on above: Performed By: #### L 500.4050, L501.5200, L100.0100 ####[facility] [address] [place], [address] Nucleated RBC (Bld) [#/Vol] 0 10*3/uL Normal 0-5 [facility] Comment on above: Performed By: #### L 500.4050, L501.5200, L100.0100 ####[facility] [address] [place], [address] Platelet mean volume (Bld) [Entitic vol] 12.3 fL High 6.2-12.0 [facility] Comment on above: Performed By: #### L 500.4050, L501.5200, L100.0100 ####[facility] [address] [place], [address] Platelets (Bld) [#/Vol] 164 10*3/uL Normal 150-450 [facility] Comment on above: Performed By: #### L 500.4050, L501.5200, L100.0100 ####[facility] [address] [place], [address] RBC (Bld) [#/Vol] 2.93 10*6/uL Low 4.2-5.4 [facility] Comment on above: Performed By: #### L 500.4050, L501.5200, L100.0100 ####[facility] [address] [place], [address] RDW SD 54.2 fl High 35.1-43.9 [facility] Comment on above: Performed By: #### L 500.4050, L501.5200, L100.0100 ####[facility] [address] [place], [address] WBC (Bld) [#/Vol] 3.4 10*3/uL Low 4.4-11.0 [facility] Comment on above: Performed By: #### L 500.4050, L501.5200, L100.0100 ####[facility] [address] [place], [address] Comprehensive Metabolic Prof ilon 04-29-2025 Albumin [Mass/Vol] 4.0 g/dL Normal 3.4-4.8 [facility] Comment on above: Performed By: #### L 500.4050, L501.5200, L100.0100 ####[facility] [address] [place], [address] Albumin/Globulin [Mass ratio] 1.3 {ratio} Normal 0.9-2.4 [facility] Comment on above: Performed By: #### L 500.4050, L501.5200, L100.0100 ####[facility] [address] [place], [address] ALK PHOS 78 U/L Normal 35-104 [facility] Comment on above: Performed By: #### L 500.4050, L501.5200, L100.0100 ####[facility] [address] [place], [address] ALT [Catalytic activity/Vol] 12 U/L Normal <=34 [facility] Comment on above: Performed By: #### L 500.4050, L501.5200, L100.0100 ####[facility] [address] [place], [address] AST [Catalytic activity/Vol] 17 U/L Normal <=31 [facility] Comment on above: Performed By: #### L 500.4050, L501.5200, L100.0100 ####[facility] [address] [place], [address] Bilirubin [Mass/Vol] 0.48 mg/dL Normal 0.00-1.30 [facility] Comment on above: Performed By: #### L 500.4050, L501.5200, L100.0100 ####[facility] [address] [place], [address] BUN/CRE 23.1 RATIO High 10-20 [facility] Comment on above: Performed By: #### L 500.4050, L501.5200, L100.0100 ####[facility] [address] [place], [address] Calcium [Mass/Vol] 9.5 mg/dL Normal 7.6-11.0 [facility] Comment on above: Performed By: #### L 500.4050, L501.5200, L100.0100 ####[facility] [address] [place], [address] Chloride [Moles/Vol] 107 mmol/L Normal 98-108 [facility] Comment on above: Performed By: #### L 500.4050, L501.5200, L100.0100 ####[facility] [address] [place], [address] CO2 [Moles/Vol] 21.6 mmol/L Normal 21.0-32.0 [facility] Comment on above: Performed By: #### L 500.4050, L501.5200, L100.0100 ####[facility] [address] [place], [address] Creatinine [Mass/Vol] 2.08 mg/dL High 0.70-1.20 [facility] Comment on above: Performed By: #### L 500.4050, L501.5200, L100.0100 ####[facility] [address] [place], [address] ECRCL 31.53 ml/min Low 50-250 [facility] Comment on above: Performed By: #### L 500.4050, L501.5200, L100.0100 ####[facility] [address] [place], [address] GAP 13 Normal 5-15 [facility] Comment on above: Performed By: #### L 500.4050, L501.5200, L100.0100 ####[facility] [address] [place], [address] GFR/1.73 sq M.predicted among non-blacks MDRD (S/P/Bld) [Vol rate/Area] 25 mL/min/{1.73_m2} Low >60 [facility] Comment on above: Result Comment: mL/m in/1.73m2 CKD-EPI Creatinine Equation (2020) Performed By: #### L 500.4050, L501.5200, L100.0100 ####[facility] [address] [place], [address] Globulin (S) [Mass/Vol] 3.1 g/dL Normal 2.2-4.2 [facility] Comment on above: Performed By: #### L 500.4050, L501.5200, L100.0100 ####[facility] [address] [place], [address] Glucose [Mass/Vol] 106 mg/dL High 70-99 [facility] Comment on above: Performed By: #### L 500.4050, L501.5200, L100.0100 ####[facility] [place] [facility] [address] [place], [address] Potassium [Moles/Vol] 3.8 mmol/L Normal 3.3-5.1 [facility] Comment on above: Performed By: #### L 500.4050, L501.5200, L100.0100 ####[facility] [address] [place], [address] Sodium [Moles/Vol] 141 mmol/L Normal 133-145 [facility] Comment on above: Performed By: #### L 500.4050, L501.5200, L100.0100 ####[facility] [address] [place], [address] T PROT 7.1 g/dL Normal 5.9-8.4 [facility] Comment on above: Performed By: #### L 500.4050, L501.5200, L100.0100 ####[facility] [address] [place], [address] Urea nitrogen [Mass/Vol] 48 mg/dL High 4-19 [facility] Comment on above: Performed By: #### L 500.4050, L501.5200, L100.0100 ####[facility] [address] [place], [address] Magnesiumon 04-29-2025 Magnesium [Mass/Vol] 1.1 mg/dL Low 1.5-2.2 [facility] Comment on above: Performed By: #### L 500.4050, L501.5200, L100.0100 ####[facility] [address] [place], [address] Absolute lymphocyte countOrd ered By: David Corral on 04-22-2025 Lymphocytes Auto (Unsp spec) [#/Vol] 1.15 10*3/uL 0.83-4.51 [facility] Anion gap in Serum or Plasma Ordered By: David Corral on 04-22-2025 Anion gap [Moles/Vol] 12 mmol/L 5-15 [facility] Automated blood erythrocyte countOrdered By: David Corral on 04-22-2025 RBC (Bld) [#/Vol] 3.16 10*6/uL Low 4.2-5.4 [facility] Comment on above: Performed By: #### L 100.0100, L501.5200, L500.4050 ####[facility] [address] [facility] [address] Automated blood hematocrit ( percentage)Ordered By: David Corral on 04-22-2025 Hematocrit (Bld) [Volume fraction] 31.2 % Low 37-47 [facility] Comment on above: Performed By: #### L 100.0100, L501.5200, L500.4050 ####[facility] [address] [facility] [id number] Automated lymphocyte count a s percentage of total leukocytesOrdered By: David Corral on 04-22-2025 Lymphocytes/100 WBC Auto (Unsp spec) 23.0 % 19-41 [facility] BUN/creatinine ratioOrdered By: David Corral on 04-22-2025 Urea nitrogen/Creatinine [Mass ratio] 18.9 mg/mg 10-20 [facility] Basophil percentageOrdered B y: David Corral on 04-22-2025 Basophils/100 WBC (Bld) 0.4 % Normal 0-1 [facility] Comment on above: Performed By: #### L 100.0100, L501.5200, L500.4050 ####[facility] [address] [place], [place], [address] Bilirubin, totalOrdered By: David Corral on 04-22-2025 Bilirubin [Mass/Vol] 0.25 mg/dL 0.00-1.30 [facility] CBC W/Diff, Automatedon 03-31 Absolute Lymph 1.15 X10 3/uL Normal 0.83-4.51 [facility] Comment on above: Performed By: #### L 100.0100, L501.5200, L500.4050 ####[facility] [address] [place], [address] Absolute Neut 3.4 X10 3/uL Normal 2.0-7.7 [facility] Comment on above: Performed By: #### L 100.0100, L501.5200, L500.4050 ####[facility] [address] [place], [address] IG% 0.800 Normal 0.0-0.9 [facility] Comment on above: Result Comment: IG% - Immature Granulocytes (promyelocytes, myelocytes andmetamyelocytes) > 1% indicates that a LEFT SHIFT is Present. Performed By: #### L 100.0100, L501.5200, L500.4050 ####[facility] [address] [place], [address] Lymphocytes/100 WBC (Bld) 23.0 % Normal 19-41 [facility] Comment on above: Performed By: #### L 100.0100, L501.5200, L500.4050 ####[facility] [address] [place], [address] MCHC (RBC) [Mass/Vol] 33.3 g/dL Normal 32-36 [facility] Comment on above: Performed By: #### L 100.0100, L501.5200, L500.4050 ####[facility] [address] [place], [address] Nucleated RBC (Bld) [#/Vol] 0 10*3/uL Normal 0-5 [facility] Comment on above: Performed By: #### L 100.0100, L501.5200, L500.4050 ####[facility] [address] [place], [address] Platelet mean volume (Bld) [Entitic vol] 12.9 fL High 6.2-12.0 [facility] Comment on above: Performed By: #### L 100.0100, L501.5200, L500.4050 ####[facility] [address] [place], [address] RDW SD 53.8 fl High 35.1-43.9 [facility] Comment on above: Performed By: #### L 100.0100, L501.5200, L500.4050 ####[facility] [address] [place], [address] Carbon dioxide, total [Moles /volume] in Central venous bloodOrdered By: David Corral on 04-22-2025 CO2 [Moles/Vol] 21.7 mmol/L 21.0-32.0 [facility] Chloride assayOrdered By: Nisa Corral on 04-22-2025 Chloride [Moles/Vol] 107 mmol/L 98-108 [facility] Comprehensive Metabolic Prof ilon 04-22-2025 Albumin [Mass/Vol] 3.9 g/dL Normal 3.4-4.8 [facility] Comment on above: Performed By: #### L 100.0100, L501.5200, L500.4050 ####[facility] [address] [place], [address] Albumin/Globulin [Mass ratio] 1.1 {ratio} Normal 0.9-2.4 [facility] Comment on above: Performed By: #### L 100.0100, L501.5200, L500.4050 ####[facility] [address] [place], [address] ALK PHOS 111 U/L High 35-104 [facility] Comment on above: Performed By: #### L 100.0100, L501.5200, L500.4050 ####[facility] [address] [place], [address] ALT [Catalytic activity/Vol] 10 U/L Normal <=34 [facility] Comment on above: Performed By: #### L 100.0100, L501.5200, L500.4050 ####[facility] [address] [place], [address] AST [Catalytic activity/Vol] 17 U/L Normal <=31 [facility] Comment on above: Performed By: #### L 100.0100, L501.5200, L500.4050 ####[facility] [address] [place], [address] Bilirubin [Mass/Vol] 0.25 mg/dL Normal 0.00-1.30 [facility] Comment on above: Performed By: #### L 100.0100, L501.5200, L500.4050 ####[facility] [address] [place], [address] BUN/CRE 18.9 RATIO Normal 10-20 [facility] Comment on above: Performed By: #### L 100.0100, L501.5200, L500.4050 ####[facility] [address] [place], [address] Calcium [Mass/Vol] 9.6 mg/dL Normal 7.6-11.0 [facility] Comment on above: Performed By: #### L 100.0100, L501.5200, L500.4050 ####[facility] [address] [place], [address] Chloride [Moles/Vol] 107 mmol/L Normal 98-108 [facility] Comment on above: Performed By: #### L 100.0100, L501.5200, L500.4050 ####[facility] [address] [place], [address] CO2 [Moles/Vol] 21.7 mmol/L Normal 21.0-32.0 [facility] Comment on above: Performed By: #### L 100.0100, L501.5200, L500.4050 ####[facility] [address] [place], [address] Creatinine [Mass/Vol] 2.66 mg/dL High 0.70-1.20 [facility] Comment on above: Performed By: #### L 100.0100, L501.5200, L500.4050 ####[facility] [address] [place], [address] ECRCL 24.70 ml/min Low 50-250 [facility] Comment on above: Performed By: #### L 100.0100, L501.5200, L500.4050 ####[facility] [address] [place], [address] GAP 12 Normal 5-15 [facility] Comment on above: Performed By: #### L 100.0100, L501.5200, L500.4050 ####[facility] [address] [place], [address] GFR/1.73 sq M.predicted among non-blacks MDRD (S/P/Bld) [Vol rate/Area] 19 mL/min/{1.73_m2} Low >60 [facility] Comment on above: Result Comment: mL/m in/1.73m2 CKD-EPI Creatinine Equation (2020) Performed By: #### L 100.0100, L501.5200, L500.4050 ####[facility] [address] [place], [address] Globulin (S) [Mass/Vol] 3.5 g/dL Normal 2.2-4.2 [facility] Comment on above: Performed By: #### L 100.0100, L501.5200, L500.4050 ####[facility] [address] [place], [address] Glucose [Mass/Vol] 115 mg/dL High 70-99 [facility] Comment on above: Performed By: #### L 100.0100, L501.5200, L500.4050 ####[facility] [address] [place], [address] Potassium [Moles/Vol] 4.1 mmol/L Normal 3.3-5.1 [facility] Comment on above: Performed By: #### L 100.0100, L501.5200, L500.4050 ####[facility] [address] [place], [address] Sodium [Moles/Vol] 141 mmol/L Normal 133-145 [facility] Comment on above: Performed By: #### L 100.0100, L501.5200, L500.4050 ####[facility] [address] [place], [address] T PROT 7.4 g/dL Normal 5.9-8.4 [facility] Comment on above: Performed By: #### L 100.0100, L501.5200, L500.4050 ####[facility] [address] [place], [address] Urea nitrogen [Mass/Vol] 50 mg/dL High 4-19 [facility] Comment on above: Performed By: #### L 100.0100, L501.5200, L500.4050 ####[facility] [address] [place], [address] Eosinophil percentageOrdered By: David Corral on 04-22-2025 Eosinophils/100 WBC (Bld) 3.0 % Normal 0-5 [facility] Comment on above: Performed By: #### L 100.0100, L501.5200, L500.4050 ####[facility] [address] [place], [address] Erythrocyte distribution wid th ratioOrdered By: David Corral on 04-22-2025 Erythrocyte distribution width (RBC) [Ratio] 14.7 % High 11.6-14.6 [facility] Comment on above: Performed By: #### L 100.0100, L501.5200, L500.4050 ####[facility] [address] [place], [address] Erythrocyte distribution wid th standard deviationOrdered By: David Corral on 04-22-2025 Erythrocyte distribution width (RBC) [Ratio] 53.8 fl High 35.1-43.9 [facility] Glomerular filtration rate ( GFR) estimation/1.73 sq m using serum, plasma, or whole bOrdered By: David Corral on 04-22-2025 GFR/1.73 sq M.predicted among non-blacks MDRD (S/P/Bld) [Vol rate/Area] 19 mL/min/{1.73_m2} Low >60 [facility] Hemoglobin measurementOrdere d By: David Corral on 04-22-2025 Hemoglobin (Bld) [Mass/Vol] 10.4 g/dL Low 12.0-15.0 [facility] Comment on above: Performed By: #### L 100.0100, L501.5200, L500.4050 ####[facility] [address] [place], [address] Immature granulocytes/100 WB C Auto (Bld)Ordered By: David Corral on 04-22-2025 Immature granulocytes/100 WBC (Bld) 0.800 % 0.0-0.9 [facility] MCV (mean corpuscular volume ) determinationOrdered By: David Corral on 04-22-2025 MCV (RBC) [Entitic vol] 98.7 fL Normal 81-99 [facility] Comment on above: Performed By: #### L 100.0100, L501.5200, L500.4050 ####[facility] [address] [place], [address] Magnesiumon 04-22-2025 Magnesium [Mass/Vol] 1.3 mg/dL Low 1.5-2.2 [facility] Comment on above: Performed By: #### L 100.0100, L501.5200, L500.4050 ####[facility] [address] [place], [address] Magnesium measurement (mass/ volume)Ordered By: David Corral on 04-22-2025 Magnesium (Unsp spec) [Mass/Vol] 1.3 mg/dL Low 1.5-2.2 [facility] Mean corpuscular hemoglobin (MCH) determinationOrdered By: David Corral on 04-22-2025 MCH (RBC) [Entitic mass] 32.9 pg High 27.0-32.0 [facility] Comment on above: Performed By: #### L 100.0100, L501.5200, L500.4050 ####[facility] [address] [place], [address] Monocyte percentageOrdered B y: David Corral on 04-22-2025 Monocytes/100 WBC (Bld) 4.8 % Normal 0-10 [facility] Comment on above: Performed By: #### L 100.0100, L501.5200, L500.4050 ####[facility] [address] [place], [address] Neutrophil percentageOrdered By: David Corral on 04-22-2025 Neutrophils/100 WBC (Bld) 68.0 % Normal 47-70 [facility] Comment on above: Performed By: #### L 100.0100, L501.5200, L500.4050 ####[facility] [address] [place], [address] No Panel InformationOrdered By: David Corral on 04-22-2025 17 U/L <32 [facility] Oncology Visit Reporton 03-31 Oncology Visit Report Normal [facility] Platelet countOrdered By: Nias Corral on 04-22-2025 Platelets (Bld) [#/Vol] 201 10*3/uL Normal 150-450 [facility] Comment on above: Performed By: #### L 100.0100, L501.5200, L500.4050 ####[facility] [address] [place], [address] Potassium measurement (mass/ volume)Ordered By: David Corral on 04-22-2025 Potassium (Unsp spec) [Mass/Vol] 4.1 mmol/L 3.3-5.1 [facility] Serum creatinine measurement (mass/volume)Ordered By: David Corral on 04-22-2025 Creatinine [Mass/Vol] 2.66 mg/dL High 0.70-1.20 [facility] Serum globulin measurementOr dered By: David Corral on 04-22-2025 Globulin (S) [Mass/Vol] 3.5 g/dL 2.2-4.2 [facility] Serum glucose measurement (m ass/volume)Ordered By: David Corral on 04-22-2025 Glucose [Mass/Vol] 115 mg/dL High 70-99 [facility] Serum or plasma alanine garcia otransferase (ALT) measurementOrdered By: David Corral on 04-22-2025 ALT [Catalytic activity/Vol] 10 U/L <35 [facility] Serum or plasma albumin addie urement (mass/volume)Ordered By: David Corral on 04-22-2025 Albumin [Mass/Vol] 3.9 g/dL 3.4-4.8 [facility] Serum or plasma albumin/glob ulin mass ratioOrdered By: David Corral on 04-22-2025 Albumin/Globulin [Mass ratio] 1.1 {ratio} 0.9-2.4 [facility] Serum or plasma alkaline jabier sphatase measurementOrdered By: David Corral on 04-22-2025 ALP [Catalytic activity/Vol] 111 U/L High 35-104 [facility] Serum or plasma calcium addie urement (mass/volume)Ordered By: David Corral on 04-22-2025 Calcium [Mass/Vol] 9.6 mg/dL 7.6-11.0 [facility] Serum or plasma urea nitroge n measurement (mass/volume)Ordered By: David Corral on 04-22-2025 Urea nitrogen [Mass/Vol] 50 mg/dL High 4-19 [facility] Sodium levelOrdered By: Jacky Corral on 04-22-2025 Sodium [Moles/Vol] 141 mmol/L 133-145 [facility] Total proteinOrdered By: Leonardgabriella Corral on 04-22-2025 Protein [Mass/Vol] 7.4 g/dL 5.9-8.4 [facility] White blood cell (WBC) count Ordered By: David Corral on 04-22-2025 WBC (Bld) [#/Vol] 5.0 10*3/uL Normal 4.4-11.0 [facility] Comment on above: Performed By: #### L 100.0100, L501.5200, L500.4050 ####[facility] [address] [place], [address] Internal Medicine Office Vis iton 04-16-2025 Internal Medicine Office Visit Normal [facility] Absolute lymphocyte countOrd ered By: David Corral on 04-15-2025 Lymphocytes Auto (Unsp spec) [#/Vol] 1.14 10*3/uL 0.83-4.51 [facility] Anion gap in Serum or Plasma Ordered By: David Corral on 04-15-2025 Anion gap [Moles/Vol] 13 mmol/L 5-15 [facility] Automated lymphocyte count a s percentage of total leukocytesOrdered By: David Corral on 04-15-2025 Lymphocytes/100 WBC Auto (Unsp spec) 20.9 % 19-41 [facility] BUN/creatinine ratioOrdered By: David Corral on 04-15-2025 Urea nitrogen/Creatinine [Mass ratio] 17.6 mg/mg 10-20 [facility] Basophil percentageOrdered B y: David Corral on 04-15-2025 Basophils/100 WBC (Bld) 0.2 % 0-1 [facility] Bilirubin Test strip Ql (U)O rdered By: David Corral on 04-15-2025 Bilirubin Ql (U) Negative Negative [facility] Bilirubin, totalOrdered By: David Corral on 04-15-2025 Bilirubin [Mass/Vol] 0.28 mg/dL 0.00-1.30 [facility] CBC W/Diff, Automatedon 03-30 Absolute Lymph 1.14 X10 3/uL Normal 0.83-4.51 [facility] Comment on above: Performed By: #### L 100.0100, L501.5200, L500.4050 ####[facility] [address] [place], [address] Absolute Neut 3.6 X10 3/uL Normal 2.0-7.7 [facility] Comment on above: Performed By: #### L 100.0100, L501.5200, L500.4050 ####[facility] [address] [place], [address] Basophils/100 WBC (Bld) 0.2 % Normal 0-1 [facility] Comment on above: Performed By: #### L 100.0100, L501.5200, L500.4050 ####[facility] [address] [place], [address] Eosinophils/100 WBC (Bld) 3.5 % Normal 0-5 [facility] Comment on above: Performed By: #### L 100.0100, L501.5200, L500.4050 ####[facility] [address] [place], [address] Erythrocyte distribution width (RBC) [Ratio] 15.8 % High 11.6-14.6 [facility] Comment on above: Performed By: #### L 100.0100, L501.5200, L500.4050 ####[facility] [address] [place], [address] Hematocrit (Bld) [Volume fraction] 29.2 % Low 37-47 [facility] Comment on above: Performed By: #### L 100.0100, L501.5200, L500.4050 ####[facility] [address] [place], [address] Hemoglobin (Bld) [Mass/Vol] 9.9 g/dL Low 12.0-15.0 [facility] Comment on above: Performed By: #### L 100.0100, L501.5200, L500.4050 ####[facility] [address] [place], [address] IG% 0.400 Normal 0.0-0.9 [facility] Comment on above: Result Comment: IG% - Immature Granulocytes (promyelocytes, myelocytes andmetamyelocytes) > 1% indicates that a LEFT SHIFT is Present. Performed By: #### L 100.0100, L501.5200, L500.4050 ####[facility] [address] [place], [address] Lymphocytes/100 WBC (Bld) 20.9 % Normal 19-41 [facility] Comment on above: Performed By: #### L 100.0100, L501.5200, L500.4050 ####[facility] [address] [place], [address] MCH (RBC) [Entitic mass] 33.2 pg High 27.0-32.0 [facility] Comment on above: Performed By: #### L 100.0100, L501.5200, L500.4050 ####[facility] [address] [place], [address] MCHC (RBC) [Mass/Vol] 33.9 g/dL Normal 32-36 [facility] Comment on above: Performed By: #### L 100.0100, L501.5200, L500.4050 ####[facility] [address] [place], [address] MCV (RBC) [Entitic vol] 98.0 fL Normal 81-99 [facility] Comment on above: Performed By: #### L 100.0100, L501.5200, L500.4050 ####[facility] [address] [place], [address] Monocytes/100 WBC (Bld) 9.5 % Normal 0-10 [facility] Comment on above: Performed By: #### L 100.0100, L501.5200, L500.4050 ####[facility] [address] [place], [address] Neutrophils/100 WBC (Bld) 65.5 % Normal 47-70 [facility] Comment on above: Performed By: #### L 100.0100, L501.5200, L500.4050 ####[facility] [address] [place], [address] Nucleated RBC (Bld) [#/Vol] 0 10*3/uL Normal 0-5 [facility] Comment on above: Performed By: #### L 100.0100, L501.5200, L500.4050 ####[facility] [address] [place], [address] Platelet mean volume (Bld) [Entitic vol] 11.4 fL Normal 6.2-12.0 [facility] Comment on above: Performed By: #### L 100.0100, L501.5200, L500.4050 ####[facility] [address] [place], [address] Platelets (Bld) [#/Vol] 146 10*3/uL Low 150-450 [facility] Comment on above: Performed By: #### L 100.0100, L501.5200, L500.4050 ####[facility] [address] [place], [address] RBC (Bld) [#/Vol] 2.98 10*6/uL Low 4.2-5.4 [facility] Comment on above: Performed By: #### L 100.0100, L501.5200, L500.4050 ####[facility] [address] [place], [address] RDW SD 55.6 fl High 35.1-43.9 [facility] Comment on above: Performed By: #### L 100.0100, L501.5200, L500.4050 ####[facility] [address] [place], [address] WBC (Bld) [#/Vol] 5.5 10*3/uL Normal 4.4-11.0 [facility] Comment on above: Performed By: #### L 100.0100, L501.5200, L500.4050 ####[facility] [address] [place], [address] Carbon dioxide, total [Moles /volume] in Central venous bloodOrdered By: David Corral on 04-15-2025 CO2 [Moles/Vol] 22.1 mmol/L 21.0-32.0 [facility] Chloride assayOrdered By: Nisa Corral on 04-15-2025 Chloride [Moles/Vol] 106 mmol/L 98-108 [facility] Comprehensive Metabolic Prof ilon 04-15-2025 Albumin [Mass/Vol] 3.9 g/dL Normal 3.4-4.8 [facility] Comment on above: Performed By: #### L 100.0100, L501.5200, L500.4050 ####[facility] [address] [place], [address] Albumin/Globulin [Mass ratio] 1.3 {ratio} Normal 0.9-2.4 [facility] Comment on above: Performed By: #### L 100.0100, L501.5200, L500.4050 ####[facility] [address] [place], [address] ALK PHOS 95 U/L Normal 35-104 [facility] Comment on above: Performed By: #### L 100.0100, L501.5200, L500.4050 ####[facility] [address] [place], [address] ALT [Catalytic activity/Vol] 11 U/L Normal <=34 [facility] Comment on above: Performed By: #### L 100.0100, L501.5200, L500.4050 ####[facility] [address] [place], [address] AST [Catalytic activity/Vol] 16 U/L Normal <=31 [facility] Comment on above: Performed By: #### L 100.0100, L501.5200, L500.4050 ####[facility] [address] [place], [address] Bilirubin [Mass/Vol] 0.28 mg/dL Normal 0.00-1.30 [facility] Comment on above: Performed By: #### L 100.0100, L501.5200, L500.4050 ####[facility] [address] [place], [address] BUN/CRE 17.6 RATIO Normal 10-20 [facility] Comment on above: Performed By: #### L 100.0100, L501.5200, L500.4050 ####[facility] [address] [place], [address] Calcium [Mass/Vol] 9.4 mg/dL Normal 7.6-11.0 [facility] Comment on above: Performed By: #### L 100.0100, L501.5200, L500.4050 ####[facility] [address] [place], [address] Chloride [Moles/Vol] 106 mmol/L Normal 98-108 [facility] Comment on above: Performed By: #### L 100.0100, L501.5200, L500.4050 ####[facility] [address] [place], [address] CO2 [Moles/Vol] 22.1 mmol/L Normal 21.0-32.0 [facility] Comment on above: Performed By: #### L 100.0100, L501.5200, L500.4050 ####[facility] [address] [place], [address] Creatinine [Mass/Vol] 2.21 mg/dL High 0.70-1.20 [facility] Comment on above: Performed By: #### L 100.0100, L501.5200, L500.4050 ####[facility] [address] [place], [address] ECRCL 30.60 ml/min Low 50-250 [facility] Comment on above: Performed By: #### L 100.0100, L501.5200, L500.4050 ####[facility] [address] [place], [address] GAP 13 Normal 5-15 [facility] Comment on above: Performed By: #### L 100.0100, L501.5200, L500.4050 ####[facility] [address] [place], [address] GFR/1.73 sq M.predicted among non-blacks MDRD (S/P/Bld) [Vol rate/Area] 24 mL/min/{1.73_m2} Low >60 [facility] Comment on above: Result Comment: mL/m in/1.73m2 CKD-EPI Creatinine Equation (2020) Performed By: #### L 100.0100, L501.5200, L500.4050 ####[facility] [address] [place], [address] Globulin (S) [Mass/Vol] 3.1 g/dL Normal 2.2-4.2 [facility] Comment on above: Performed By: #### L 100.0100, L501.5200, L500.4050 ####[facility] [address] [place], [address] Glucose [Mass/Vol] 125 mg/dL High 70-99 [facility] Comment on above: Performed By: #### L 100.0100, L501.5200, L500.4050 ####[facility] [address] [place], [address] Potassium [Moles/Vol] 4.4 mmol/L Normal 3.3-5.1 [facility] Comment on above: Performed By: #### L 100.0100, L501.5200, L500.4050 ####[facility] [address] [place], [address] Sodium [Moles/Vol] 141 mmol/L Normal 133-145 [facility] Comment on above: Performed By: #### L 100.0100, L501.5200, L500.4050 ####[facility] [address] [place], [address] T PROT 7.0 g/dL Normal 5.9-8.4 [facility] Comment on above: Performed By: #### L 100.0100, L501.5200, L500.4050 ####[facility] [address] [place], [address] Urea nitrogen [Mass/Vol] 39 mg/dL High 4-19 [facility] Comment on above: Performed By: #### L 100.0100, L501.5200, L500.4050 ####[facility] [address] [place], [address] Eosinophil percentageOrdered By: David Corral on 04-15-2025 Eosinophils/100 WBC (Bld) 3.5 % 0-5 [facility] Erythrocyte distribution wid th ratioOrdered By: David Corral on 04-15-2025 Erythrocyte distribution width (RBC) [Ratio] 15.8 % High 11.6-14.6 [facility] Erythrocyte distribution wid th standard deviationOrdered By: David Corral on 04-15-2025 Erythrocyte distribution width (RBC) [Ratio] 55.6 fl High 35.1-43.9 [facility] Glomerular filtration rate ( GFR) estimation/1.73 sq m using serum, plasma, or whole bOrdered By: David Corral on 04-15-2025 GFR/1.73 sq M.predicted among non-blacks MDRD (S/P/Bld) [Vol rate/Area] 24 mL/min/{1.73_m2} Low >60 [facility] Hematocrit Auto (Bld) [Volum e fraction]Ordered By: David Castellon on 04-15-2025 Hematocrit (Bld) [Volume fraction] 29.2 % Low 37-47 [facility] Hemoglobin measurementOrdere d By: David Corral on 04-15-2025 Hemoglobin (Bld) [Mass/Vol] 9.9 g/dL Low 12.0-15.0 [facility] Immature granulocytes/100 WB C Auto (Bld)Ordered By: [facility] on 04-15-2025 Immature granulocytes/100 WBC (Bld) 0.400 % 0.0-0.9 [facility] Ketones Test strip Ql (U)Ord ered By: [facility] on 04-15-2025 Ketones Ql (U) Negative Negative [facility] MCV (mean corpuscular volume ) determinationOrdered By: David Corral on 04-15-2025 MCV (RBC) [Entitic vol] 98.0 fL 81-99 [facility] Magnesiumon 04-15-2025 Magnesium [Mass/Vol] 1.4 mg/dL Low 1.5-2.2 [facility] Comment on above: Performed By: #### L 100.0100, L501.5200, L500.4050 ####[facility] [address] [place], [address] Magnesium measurement (mass/ volume)Ordered By: David Castellon on 04-15-2025 Magnesium (Unsp spec) [Mass/Vol] 1.4 mg/dL Low 1.5-2.2 [facility] Mean corpuscular hemoglobin (MCH) determinationOrdered By: David Corral on 04-15-2025 MCH (RBC) [Entitic mass] 33.2 pg High 27.0-32.0 [facility] Monocyte percentageOrdered B y: David Corral on 04-15-2025 Monocytes/100 WBC (Bld) 9.5 % 0-10 [facility] Mucus LM Ql (Urine sed)Order ed By: David Corral on 04-15-2025 Mucus Ql (Urine sed) 0 SEEN /hpf [facility] Neutrophil percentageOrdered By: David Corral on 04-15-2025 Neutrophils/100 WBC (Bld) 65.5 % 47-70 [facility] Nitrite Test strip Ql (U)Ord ered By: David Corral on 04-15-2025 Nitrite Ql (U) Negative Negative [facility] No Panel InformationOrdered By: David Corral on 04-15-2025 16 U/L <32 [facility] Oncology Visit Reporton 03-30 Oncology Visit Report Normal [facility] Platelet countOrdered By: Nisa Corral on 04-15-2025 Platelets (Bld) [#/Vol] 146 10*3/uL Low 150-450 [facility] Potassium measurement (mass/ volume)Ordered By: David Corral on 04-15-2025 Potassium (Unsp spec) [Mass/Vol] 4.4 mmol/L 3.3-5.1 [facility] Protein Test strip Ql (U)Ord ered By: David Corral on 04-15-2025 Protein Ql (U) 100 mg/dl High Negative [facility] RBC Auto (Bld) [#/Vol]Ordere d By: David Corral on 04-15-2025 RBC (Bld) [#/Vol] 2.98 10*6/uL Low 4.2-5.4 [facility] Serum creatinine measurement (mass/volume)Ordered By: David Corral on 04-15-2025 Creatinine [Mass/Vol] 2.21 mg/dL High 0.70-1.20 [facility] Serum globulin measurementOr dered By: David Corral on 04-15-2025 Globulin (S) [Mass/Vol] 3.1 g/dL 2.2-4.2 [facility] Serum glucose measurement (m ass/volume)Ordered By: David Corral on 04-15-2025 Glucose [Mass/Vol] 125 mg/dL High 70-99 [facility] Serum or plasma alanine garcia otransferase (ALT) measurementOrdered By: David Corral on 04-15-2025 ALT [Catalytic activity/Vol] 11 U/L <35 [facility] Serum or plasma albumin addie urement (mass/volume)Ordered By: David Corral on 04-15-2025 Albumin [Mass/Vol] 3.9 g/dL 3.4-4.8 [facility] Serum or plasma albumin/glob ulin mass ratioOrdered By: David Corral on 04-15-2025 Albumin/Globulin [Mass ratio] 1.3 {ratio} 0.9-2.4 [facility] Serum or plasma alkaline jabier sphatase measurementOrdered By: David Corral on 04-15-2025 ALP [Catalytic activity/Vol] 95 U/L 35-104 [facility] Serum or plasma calcium addie urement (mass/volume)Ordered By: David Corral on 04-15-2025 Calcium [Mass/Vol] 9.4 mg/dL 7.6-11.0 [facility] Serum or plasma urea nitroge n measurement (mass/volume)Ordered By: David Corral on 04-15-2025 Urea nitrogen [Mass/Vol] 39 mg/dL High 4-19 [facility] Sodium levelOrdered By: Jacky Corral on 04-15-2025 Sodium [Moles/Vol] 141 mmol/L 133-145 [facility] Squamous epithelial cells de tection in urine sediment by light microscopyOrdered By: David Corral on 04-15-2025 Epithelial cells.squamous LM Ql (Urine sed) 5-10 SEEN /hpf - [facility] Total proteinOrdered By: Leonard Corral on 04-15-2025 Protein [Mass/Vol] 7.0 g/dL 5.9-8.4 [facility] Urinalysis, Completeon 04-15 EPI,SQUAMOUS 5-10 SEEN Normal -10 [facility] Comment on above: Order Comment: FRANDY CTOR TO SPECIFY Performed By: #### L 400.0001 ####[facility] [address] [place], [address] WBC 0-5 SEEN Normal 0-5 [facility] Comment on above: Order Comment: FRANDY CTOR TO SPECIFY Performed By: #### L 400.0001 ####[facility] [address] [place], [address] BACTERIA 0 SEEN Normal None Seen [facility] Comment on above: Order Comment: FRANDY CTOR TO SPECIFY Performed By: #### L 400.0001 ####[facility] [address] [place], [address] Mucus Ql (Urine sed) 0 SEEN Normal [facility] Comment on above: Order Comment: FRANDY CTOR TO SPECIFY Performed By: #### L 400.0001 ####[facility] [address] [place], [address] RBC 0 SEEN Normal 0-5 [facility] Comment on above: Order Comment: FRANDY CTOR TO SPECIFY Performed By: #### L 400.0001 ####[facility] [address] [place], [address] Urine clarityOrdered By: Leonard Corral on 04-15-2025 Clarity (U) Clear Clear [facility] Urine color determinationOrd ered By: David Corral on 04-15-2025 Color (U) Yellow Yellow [facility] Urine glucose detectionOrder ed By: David Corral on 04-15-2025 Glucose Ql (U) Normal mg/dl Normal [facility] Urine leukocyte esterase det ection by dipstickOrdered By: David Corral on 04-15-2025 Leukocyte esterase Test strip Ql (U) 100 /ul High Negative [facility] Urine pHOrdered By: David gillespie on 04-15-2025 pH (U) 6.0 [pH] 5.0 - 8.0 [facility] Urine sediment bacteria coun t by microscopy (number/high power field)Ordered By: David Corral on 04-15-2025 Bacteria LM.HPF (Urine sed) [#/Area] 0 /[HPF] None Seen [facility] Urine specific gravity measu rementOrdered By: David Corral on 04-15-2025 Specific gravity (U) [Rel density] 1.010 1.002-1.03 0 [facility] Urine urobilinogen measureme ntOrdered By: David Corral on 04-15-2025 Urobilinogen Ql (U) Normal mg/dl Normal [facility] White blood cell (WBC) count Ordered By: David Corral on 04-15-2025 WBC (Bld) [#/Vol] 5.5 10*3/uL 4.4-11.0 [facility] White blood cell countOrdere d By: David Corral on 04-15-2025 White blood cell count 0-5 SEEN /hpf 0-5 [facility] Absolute lymphocyte countOrd ered By: David Corral on 04-08-2025 Lymphocytes Auto (Unsp spec) [#/Vol] 1.04 10*3/uL 0.83-4.51 [facility] Anion gap in Serum or Plasma Ordered By: David Corral on 04-08-2025 Anion gap [Moles/Vol] 13 mmol/L 5-15 [facility] Automated lymphocyte count a s percentage of total leukocytesOrdered By: David Corral on 04-08-2025 Lymphocytes/100 WBC Auto (Unsp spec) 27.8 % 19-41 [facility] BUN/creatinine ratioOrdered By: David Corral on 04-08-2025 Urea nitrogen/Creatinine [Mass ratio] 20.7 mg/mg High 10-20 [facility] Basophil percentageOrdered B y: David Corral on 04-08-2025 Basophils/100 WBC (Bld) 0.8 % 0-1 [facility] Bilirubin, totalOrdered By: David Corral on 04-08-2025 Bilirubin [Mass/Vol] 0.36 mg/dL 0.00-1.30 [facility] CBC W/Diff, Automatedon 03-30 ATYPICAL LYMPH 1+ Normal [facility] Comment on above: Performed By: #### L 500.4050, L501.5200, L100.0100 ####[facility] [address] [place], [address] Carbon dioxide, total [Moles /volume] in Central venous bloodOrdered By: David Corral on 04-08-2025 CO2 [Moles/Vol] 22.7 mmol/L 21.0-32.0 [facility] Chloride assayOrdered By: Nisa Corral on 04-08-2025 Chloride [Moles/Vol] 106 mmol/L 98-108 [facility] Comprehensive Metabolic Prof ilon 04-08-2025 Albumin [Mass/Vol] 3.9 g/dL Normal 3.4-4.8 [facility] Comment on above: Performed By: #### L 500.4050, L501.5200, L100.0100 ####[facility] [address] [place], [address] Albumin/Globulin [Mass ratio] 1.2 {ratio} Normal 0.9-2.4 [facility] Comment on above: Performed By: #### L 500.4050, L501.5200, L100.0100 ####[facility] [address] [place], [address] ALK PHOS 136 U/L High 35-104 [facility] Comment on above: Performed By: #### L 500.4050, L501.5200, L100.0100 ####[facility] [address] [place], [address] ALT [Catalytic activity/Vol] 29 U/L Normal <=34 [facility] Comment on above: Performed By: #### L 500.4050, L501.5200, L100.0100 ####[facility] [address] [place], [address] AST [Catalytic activity/Vol] 26 U/L Normal <=31 [facility] Comment on above: Performed By: #### L 500.4050, L501.5200, L100.0100 ####[facility] [address] [place], [address] Bilirubin [Mass/Vol] 0.36 mg/dL Normal 0.00-1.30 [facility] Comment on above: Performed By: #### L 500.4050, L501.5200, L100.0100 ####[facility] [address] [place], [address] BUN/CRE 20.7 RATIO High 10-20 [facility] Comment on above: Performed By: #### L 500.4050, L501.5200, L100.0100 ####[facility] [address] [place], [address] Calcium [Mass/Vol] 9.2 mg/dL Normal 7.6-11.0 [facility] Comment on above: Performed By: #### L 500.4050, L501.5200, L100.0100 ####[facility] [address] [place], [address] Chloride [Moles/Vol] 106 mmol/L Normal 98-108 [facility] Comment on above: Performed By: #### L 500.4050, L501.5200, L100.0100 ####[facility] [address] [place], [address] CO2 [Moles/Vol] 22.7 mmol/L Normal 21.0-32.0 [facility] Comment on above: Performed By: #### L 500.4050, L501.5200, L100.0100 ####[facility] [address] [place], [address] Creatinine [Mass/Vol] 1.87 mg/dL High 0.70-1.20 [facility] Comment on above: Performed By: #### L 500.4050, L501.5200, L100.0100 ####[facility] [address] [place], [address] ECRCL 36.12 ml/min Low 50-250 [facility] Comment on above: Performed By: #### L 500.4050, L501.5200, L100.0100 ####[facility] [address] [place], [address] GAP 13 Normal 5-15 [facility] Comment on above: Performed By: #### L 500.4050, L501.5200, L100.0100 ####[facility] [address] [place], [address] GFR/1.73 sq M.predicted among non-blacks MDRD (S/P/Bld) [Vol rate/Area] 29 mL/min/{1.73_m2} Low >60 [facility] Comment on above: Result Comment: mL/m in/1.73m2 CKD-EPI Creatinine Equation (2020) Performed By: #### L 500.4050, L501.5200, L100.0100 ####[facility] [address] [place], [address] Globulin (S) [Mass/Vol] 3.2 g/dL Normal 2.2-4.2 [facility] Comment on above: Performed By: #### L 500.4050, L501.5200, L100.0100 ####[facility] [address] [place], [address] Glucose [Mass/Vol] 101 mg/dL High 70-99 [facility] Comment on above: Performed By: #### L 500.4050, L501.5200, L100.0100 ####[facility] [address] [place], [address] Potassium [Moles/Vol] 3.6 mmol/L Normal 3.3-5.1 [facility] Comment on above: Performed By: #### L 500.4050, L501.5200, L100.0100 ####[facility] [address] [place], [address] Sodium [Moles/Vol] 141 mmol/L Normal 133-145 [facility] Comment on above: Performed By: #### L 500.4050, L501.5200, L100.0100 ####[facility] [address] [place], [address] T PROT 7.1 g/dL Normal 5.9-8.4 [facility] Comment on above: Performed By: #### L 500.4050, L501.5200, L100.0100 ####[facility] [address] [place], [address] Urea nitrogen [Mass/Vol] 39 mg/dL High 4-19 [facility] Comment on above: Performed By: #### L 500.4050, L501.5200, L100.0100 ####[facility] [address] [place], [address] Eosinophil percentageOrdered By: David Corral on 04-08-2025 Eosinophils/100 WBC (Bld) 2.9 % 0-5 [facility] Erythrocyte distribution wid th ratioOrdered By: David Corral on 04-08-2025 Erythrocyte distribution width (RBC) [Ratio] 14.5 % 11.6-14.6 [facility] Erythrocyte distribution wid th standard deviationOrdered By: David Corral on 04-08-2025 Erythrocyte distribution width (RBC) [Ratio] 50.2 fl High 35.1-43.9 [facility] Glomerular filtration rate ( GFR) estimation/1.73 sq m using serum, plasma, or whole bOrdered By: David Corral on 04-08-2025 GFR/1.73 sq M.predicted among non-blacks MDRD (S/P/Bld) [Vol rate/Area] 29 mL/min/{1.73_m2} Low >60 [facility] Hematocrit Auto (Bld) [Volum e fraction]Ordered By: David Corral on 04-08-2025 Hematocrit (Bld) [Volume fraction] 27.9 % Low 37-47 [facility] Hemoglobin measurementOrdere d By: David Corral on 04-08-2025 Hemoglobin (Bld) [Mass/Vol] 9.1 g/dL Low 12.0-15.0 [facility] Immature granulocytes/100 WB C Auto (Bld)Ordered By: David Corral on 04-08-2025 Immature granulocytes/100 WBC (Bld) 0.800 % 0.0-0.9 [facility] MCV (mean corpuscular volume ) determinationOrdered By: David Corral on 04-08-2025 MCV (RBC) [Entitic vol] 97.6 fL 81-99 [facility] Magnesiumon 04-08-2025 Magnesium [Mass/Vol] 1.3 mg/dL Low 1.5-2.2 [facility] Comment on above: Performed By: #### L 500.4050, L501.5200, L100.0100 ####[facility] [address] [facility] [place], [address] Magnesium measurement (mass/ volume)Ordered By: David Corral on 04-08-2025 Magnesium (Unsp spec) [Mass/Vol] 1.3 mg/dL Low 1.5-2.2 [facility] Mean corpuscular hemoglobin (MCH) determinationOrdered By: David Corral on 04-08-2025 MCH (RBC) [Entitic mass] 31.8 pg 27.0-32.0 [facility] Monocyte percentageOrdered B y: David Corral on 04-08-2025 Monocytes/100 WBC (Bld) 3.5 % 0-10 [facility] Neutrophil percentageOrdered By: David Corral on 04-08-2025 Neutrophils/100 WBC (Bld) 64.2 % 47-70 [facility] No Panel InformationOrdered By: David Corral on 04-08-2025 26 U/L <32 [facility] Oncology Visit Reporton 03-30 Oncology Visit Report Normal [facility] Platelet countOrdered By: Nisa Corral on 04-08-2025 Platelets (Bld) [#/Vol] 128 10*3/uL Low 150-450 [facility] Potassium measurement (mass/ volume)Ordered By: David Corral on 04-08-2025 Potassium (Unsp spec) [Mass/Vol] 3.6 mmol/L 3.3-5.1 [facility] RBC Auto (Bld) [#/Vol]Ordere d By: David Corral on 04-08-2025 RBC (Bld) [#/Vol] 2.86 10*6/uL Low 4.2-5.4 [facility] Serum creatinine measurement (mass/volume)Ordered By: David Corral on 04-08-2025 Creatinine [Mass/Vol] 1.87 mg/dL High 0.70-1.20 [facility] Serum globulin measurementOr dered By: David Corral on 04-08-2025 Globulin (S) [Mass/Vol] 3.2 g/dL 2.2-4.2 [facility] Serum glucose measurement (m ass/volume)Ordered By: David Corral on 04-08-2025 Glucose [Mass/Vol] 101 mg/dL High 70-99 [facility] Serum or plasma alanine garcia otransferase (ALT) measurementOrdered By: David Corral on 04-08-2025 ALT [Catalytic activity/Vol] 29 U/L <35 [facility] Serum or plasma albumin addie urement (mass/volume)Ordered By: David Corral on 04-08-2025 Albumin [Mass/Vol] 3.9 g/dL 3.4-4.8 [facility] Serum or plasma albumin/glob ulin mass ratioOrdered By: David Corral on 04-08-2025 Albumin/Globulin [Mass ratio] 1.2 {ratio} 0.9-2.4 [facility] Serum or plasma alkaline jabier sphatase measurementOrdered By: David Corral on 04-08-2025 ALP [Catalytic activity/Vol] 136 U/L High 35-104 [facility] Serum or plasma calcium addie urement (mass/volume)Ordered By: David Corral on 04-08-2025 Calcium [Mass/Vol] 9.2 mg/dL 7.6-11.0 [facility] Serum or plasma urea nitroge n measurement (mass/volume)Ordered By: David Corral on 04-08-2025 Urea nitrogen [Mass/Vol] 39 mg/dL High 4-19 [facility] Sodium levelOrdered By: Jacky Corral on 04-08-2025 Sodium [Moles/Vol] 141 mmol/L 133-145 [facility] Total proteinOrdered By: Leonardgabriella Corral on 04-08-2025 Protein [Mass/Vol] 7.1 g/dL 5.9-8.4 [facility] Urinalysis, Completeon 04-08 BACTERIA 1+ /hpf Normal None Seen [facility] Comment on above: Order Comment: CLEAN CATCH Performed By: #### L 400.0001 ####[facility] [address] [place], [address] EPI,SQUAMOUS 0-5 SEEN Normal 5-10 [facility] Comment on above: Order Comment: CLEAN CATCH Performed By: #### L 400.0001 ####[facility] [address] [place], [address] RBC 0-5 SEEN Normal 0-5 [facility] Comment on above: Order Comment: CLEAN CATCH Performed By: #### L 400.0001 ####[facility] [address] [place], [address] WBC 0-5 SEEN Normal 0-5 [facility] Comment on above: Order Comment: CLEAN CATCH Performed By: #### L 400.0001 ####[facility] [address] [place], [address] Mucus Ql (Urine sed) 0 SEEN Normal [facility] Comment on above: Order Comment: CLEAN CATCH Performed By: #### L 400.0001 ####[facility] [address] [place], [address] White blood cell (WBC) count Ordered By: David Corral on 04-08-2025 WBC (Bld) [#/Vol] 3.7 10*3/uL Low 4.4-11.0 [facility] Cancer Antigen 125on 025 CA 125 14.3 U/mL Normal 0.0-38.1 [facility] Comment on above: Result Comment: [employer] [employer] Electrochemiluminescence Immunoassay(ECLIA)Values obtained with different assay methods or kits cannotbe used interchangeably. Results cannot be interpreted asabsolute evidence of the presence or absence of malignantdisease.Performed at: [address] [id number] Director: Joe Olivier PhD, Phone: [phone] Performed By: #### L 504.2610, L3100.5000 ####[facility] [address] [place], [address] CBC W/Diff, Automatedon ATYPICAL LYMPH 1+ Normal [facility] Comment on above: Performed By: #### L 100.0100, L501.5200, L500.4050 ####[facility] [address] [place], [address] Comprehensive Metabolic Prof ilon 04-01-2025 Albumin [Mass/Vol] 3.8 g/dL Normal 3.4-4.8 [facility] Comment on above: Performed By: #### L 100.0100, L501.5200, L500.4050 ####[facility] [address] [place], [address] Albumin/Globulin [Mass ratio] 1.1 {ratio} Normal 0.9-2.4 [facility] Comment on above: Performed By: #### L 100.0100, L501.5200, L500.4050 ####[facility] [address] [place], [address] ALK PHOS 81 U/L Normal 35-104 [facility] Comment on above: Performed By: #### L 100.0100, L501.5200, L500.4050 ####[facility] [address] [place], [address] ALT [Catalytic activity/Vol] 17 U/L Normal <=34 [facility] Comment on above: Performed By: #### L 100.0100, L501.5200, L500.4050 ####[facility] [address] [place], [address] AST [Catalytic activity/Vol] 20 U/L Normal <=31 [facility] Comment on above: Performed By: #### L 100.0100, L501.5200, L500.4050 ####[facility] [address] [place], [address] Bilirubin [Mass/Vol] 0.41 mg/dL Normal 0.00-1.30 [facility] Comment on above: Performed By: #### L 100.0100, L501.5200, L500.4050 ####[facility] [address] [place], [address] BUN/CRE 20.0 RATIO Normal 10-20 [facility] Comment on above: Performed By: #### L 100.0100, L501.5200, L500.4050 ####[facility] [address] [place], [address] Calcium [Mass/Vol] 9.4 mg/dL Normal 7.6-11.0 [facility] Comment on above: Performed By: #### L 100.0100, L501.5200, L500.4050 ####[facility] [address] [place], [address] Chloride [Moles/Vol] 105 mmol/L Normal 98-108 [facility] Comment on above: Performed By: #### L 100.0100, L501.5200, L500.4050 ####[facility] [address] [place], [address] CO2 [Moles/Vol] 23.1 mmol/L Normal 21.0-32.0 [facility] Comment on above: Performed By: #### L 100.0100, L501.5200, L500.4050 ####[facility] [address] [place], [address] Creatinine [Mass/Vol] 2.03 mg/dL High 0.70-1.20 [facility] Comment on above: Performed By: #### L 100.0100, L501.5200, L500.4050 ####[facility] [address] [place], [address] ECRCL 33.27 ml/min Low 50-250 [facility] Comment on above: Performed By: #### L 100.0100, L501.5200, L500.4050 ####[facility] [address] [place], [address] GAP 13 Normal 5-15 [facility] Comment on above: Performed By: #### L 100.0100, L501.5200, L500.4050 ####[facility] [address] [place], [address] GFR/1.73 sq M.predicted among non-blacks MDRD (S/P/Bld) [Vol rate/Area] 26 mL/min/{1.73_m2} Low >60 [facility] Comment on above: Result Comment: mL/m in/1.73m2 CKD-EPI Creatinine Equation (2020) Performed By: #### L 100.0100, L501.5200, L500.4050 ####[facility] [address] [place], [address] Globulin (S) [Mass/Vol] 3.3 g/dL Normal 2.2-4.2 [facility] Comment on above: Performed By: #### L 100.0100, L501.5200, L500.4050 ####[facility] [address] [place], [address] Glucose [Mass/Vol] 105 mg/dL High 70-99 [facility] Comment on above: Performed By: #### L 100.0100, L501.5200, L500.4050 ####[facility] [address] [place], [address] Potassium [Moles/Vol] 3.8 mmol/L Normal 3.3-5.1 [facility] Comment on above: Performed By: #### L 100.0100, L501.5200, L500.4050 ####[facility] [address] [place], [address] Sodium [Moles/Vol] 141 mmol/L Normal 133-145 [facility] Comment on above: Performed By: #### L 100.0100, L501.5200, L500.4050 ####[facility] [address] [place], [address] T PROT 7.2 g/dL Normal 5.9-8.4 [facility] Comment on above: Performed By: #### L 100.0100, L501.5200, L500.4050 ####[facility] [address] [place], [address] Urea nitrogen [Mass/Vol] 41 mg/dL High 4-19 [facility] Comment on above: Performed By: #### L 100.0100, L501.5200, L500.4050 ####[facility] [address] [place], [address] LDHon 04-01-2025 LDH 178 U/L Normal 84-246 [facility] Comment on above: Order Comment: 1 Performed By: #### L 504.2610, L3100.5000 ####[facility] [address] [place], [address] Magnesiumon 04-01-2025 Magnesium [Mass/Vol] 1.3 mg/dL Low 1.5-2.2 [facility] Comment on above: Performed By: #### L 100.0100, L501.5200, L500.4050 ####[facility] [address] [place], [address] Absolute lymphocyte countOrd ered By: David Ellis on 03-25-2025 Lymphocytes Auto (Unsp spec) [#/Vol] 1.19 10*3/uL 0.83-4.51 [facility] Anion gap in Serum or Plasma Ordered By: David Corral on 03-25-2025 Anion gap [Moles/Vol] 14 mmol/L 5-15 [facility] Automated lymphocyte count a s percentage of total leukocytesOrdered By: David Corral on 03-25-2025 Lymphocytes/100 WBC Auto (Unsp spec) 28.7 % - [facility] BUN/creatinine ratioOrdered By: David Corral on 03-25-2025 Urea nitrogen/Creatinine [Mass ratio] 21.8 mg/mg High 10-20 [facility] Basophil percentageOrdered B y: David Corral on 03-25-2025 Basophils/100 WBC (Bld) 0.5 % 0-1 [facility] Bilirubin, totalOrdered By: David Corral on 03-25-2025 Bilirubin [Mass/Vol] 0.64 mg/dL 0.00-1.30 [facility] CBC W/Diff, Automatedon 02-28 Absolute Lymph 1.19 X10 3/uL Normal 0.83-4.51 [facility] Comment on above: Performed By: #### L 100.0100, L501.5200, L500.4050 ####[facility] [address] [place], [address] Absolute Neut 2.5 X10 3/uL Normal 2.0-7.7 [facility] Comment on above: Performed By: #### L 100.0100, L501.5200, L500.4050 ####[facility] [address] [place], [address] Basophils/100 WBC (Bld) 0.5 % Normal 0-1 [facility] Comment on above: Performed By: #### L 100.0100, L501.5200, L500.4050 ####[facility] [address] [place], [address] Eosinophils/100 WBC (Bld) 6.0 % High 0-5 [facility] Comment on above: Performed By: #### L 100.0100, L501.5200, L500.4050 ####[facility] [address] [place], [address] Erythrocyte distribution width (RBC) [Ratio] 13.5 % Normal 11.6-14.6 [facility] Comment on above: Performed By: #### L 100.0100, L501.5200, L500.4050 ####[facility] [address] [place], [address] Hematocrit (Bld) [Volume fraction] 32.2 % Low 37-47 [facility] Comment on above: Performed By: #### L 100.0100, L501.5200, L500.4050 ####[facility] [address] [place], [address] Hemoglobin (Bld) [Mass/Vol] 10.8 g/dL Low 12.0-15.0 [facility] Comment on above: Performed By: #### L 100.0100, L501.5200, L500.4050 ####[facility] [address] [place], [address] IG% 0.700 Normal 0.0-0.9 [facility] Comment on above: Result Comment: IG% - Immature Granulocytes (promyelocytes, myelocytes andmetamyelocytes) > 1% indicates that a LEFT SHIFT is Present. Performed By: #### L 100.0100, L501.5200, L500.4050 ####[facility] [address] [place], [address] Lymphocytes/100 WBC (Bld) 28.7 % Normal 19-41 [facility] Comment on above: Performed By: #### L 100.0100, L501.5200, L500.4050 ####[facility] [address] [place], [address] MCH (RBC) [Entitic mass] 31.9 pg Normal 27.0-32.0 [facility] Comment on above: Performed By: #### L 100.0100, L501.5200, L500.4050 ####[facility] [address] [place], [address] MCHC (RBC) [Mass/Vol] 33.5 g/dL Normal 32-36 [facility] Comment on above: Performed By: #### L 100.0100, L501.5200, L500.4050 ####[facility] [address] [place], [address] MCV (RBC) [Entitic vol] 95.0 fL Normal 81-99 [facility] Comment on above: Performed By: #### L 100.0100, L501.5200, L500.4050 ####[facility] [address] [place], [address] Monocytes/100 WBC (Bld) 3.4 % Normal 0-10 [facility] Comment on above: Performed By: #### L 100.0100, L501.5200, L500.4050 ####[facility] [address] [place], [address] Neutrophils/100 WBC (Bld) 60.7 % Normal 47-70 [facility] Comment on above: Performed By: #### L 100.0100, L501.5200, L500.4050 ####[facility] [address] [place], [address] Nucleated RBC (Bld) [#/Vol] 0 10*3/uL Normal 0-5 [facility] Comment on above: Performed By: #### L 100.0100, L501.5200, L500.4050 ####[facility] [address] [place], [address] Platelet mean volume (Bld) [Entitic vol] 12.1 fL High 6.2-12.0 [facility] Comment on above: Performed By: #### L 100.0100, L501.5200, L500.4050 ####[facility] [address] [place], [address] Platelets (Bld) [#/Vol] 155 10*3/uL Normal 150-450 [facility] Comment on above: Performed By: #### L 100.0100, L501.5200, L500.4050 ####[facility] [address] [place], [address] RBC (Bld) [#/Vol] 3.39 10*6/uL Low 4.2-5.4 [facility] Comment on above: Performed By: #### L 100.0100, L501.5200, L500.4050 ####[facility] [address] [place], [address] RDW SD 47.2 fl High 35.1-43.9 [facility] Comment on above: Performed By: #### L 100.0100, L501.5200, L500.4050 ####[facility] [address] [place], [address] WBC (Bld) [#/Vol] 4.1 10*3/uL Low 4.4-11.0 [facility] Comment on above: Performed By: #### L 100.0100, L501.5200, L500.4050 ####[facility] [address] [place], [address] Carbon dioxide, total [Moles /volume] in Central venous bloodOrdered By: David Corral on 03-25-2025 CO2 [Moles/Vol] 21.4 mmol/L 21.0-32.0 [facility] Chloride assayOrdered By: Nisa Corral on 03-25-2025 Chloride [Moles/Vol] 105 mmol/L 98-108 [facility] Comprehensive Metabolic Prof ilon 03-25-2025 Albumin [Mass/Vol] 3.9 g/dL Normal 3.4-4.8 [facility] Comment on above: Performed By: #### L 100.0100, L501.5200, L500.4050 ####[facility] [address] [place], [address] Albumin/Globulin [Mass ratio] 1.0 {ratio} Normal 0.9-2.4 [facility] Comment on above: Performed By: #### L 100.0100, L501.5200, L500.4050 ####[facility] [address] [place], [address] ALK PHOS 82 U/L Normal 35-104 [facility] Comment on above: Performed By: #### L 100.0100, L501.5200, L500.4050 ####[facility] [address] [place], [address] ALT [Catalytic activity/Vol] 11 U/L Normal <=34 [facility] Comment on above: Performed By: #### L 100.0100, L501.5200, L500.4050 ####[facility] [address] [place], [address] AST [Catalytic activity/Vol] 19 U/L Normal <=31 [facility] Comment on above: Performed By: #### L 100.0100, L501.5200, L500.4050 ####[facility] [address] [place], [address] Bilirubin [Mass/Vol] 0.64 mg/dL Normal 0.00-1.30 [facility] Comment on above: Performed By: #### L 100.0100, L501.5200, L500.4050 ####[facility] [address] [place], [address] BUN/CRE 21.8 RATIO High 10-20 [facility] Comment on above: Performed By: #### L 100.0100, L501.5200, L500.4050 ####[facility] [address] [place], [address] Calcium [Mass/Vol] 9.6 mg/dL Normal 7.6-11.0 [facility] Comment on above: Performed By: #### L 100.0100, L501.5200, L500.4050 ####[facility] [address] [place], [address] Chloride [Moles/Vol] 105 mmol/L Normal 98-108 [facility] Comment on above: Performed By: #### L 100.0100, L501.5200, L500.4050 ####[facility] [address] [place], [address] CO2 [Moles/Vol] 21.4 mmol/L Normal 21.0-32.0 [facility] Comment on above: Performed By: #### L 100.0100, L501.5200, L500.4050 ####[facility] [address] [place], [address] Creatinine [Mass/Vol] 1.97 mg/dL High 0.70-1.20 [facility] Comment on above: Performed By: #### L 100.0100, L501.5200, L500.4050 ####[facility] [address] [place], [address] ECRCL 35.95 ml/min Low 50-250 [facility] Comment on above: Performed By: #### L 100.0100, L501.5200, L500.4050 ####[facility] [address] [place], [address] GAP 14 Normal 5-15 [facility] Comment on above: Performed By: #### L 100.0100, L501.5200, L500.4050 ####[facility] [address] [place], [address] GFR/1.73 sq M.predicted among non-blacks MDRD (S/P/Bld) [Vol rate/Area] 27 mL/min/{1.73_m2} Low >60 [facility] Comment on above: Result Comment: mL/m in/1.73m2 CKD-EPI Creatinine Equation (2020) Performed By: #### L 100.0100, L501.5200, L500.4050 ####[facility] [address] [place], [address] Globulin (S) [Mass/Vol] 3.8 g/dL Normal 2.2-4.2 [facility] Comment on above: Performed By: #### L 100.0100, L501.5200, L500.4050 ####[facility] [address] [place], [address] Glucose [Mass/Vol] 115 mg/dL High 70-99 [facility] Comment on above: Performed By: #### L 100.0100, L501.5200, L500.4050 ####[facility] [address] [place], [address] Potassium [Moles/Vol] 3.8 mmol/L Normal 3.3-5.1 [facility] Comment on above: Performed By: #### L 100.0100, L501.5200, L500.4050 ####[facility] [address] [place], [address] Sodium [Moles/Vol] 140 mmol/L Normal 133-145 [facility] Comment on above: Performed By: #### L 100.0100, L501.5200, L500.4050 ####[facility] [address] [place], [address] T PROT 7.7 g/dL Normal 5.9-8.4 [facility] Comment on above: Performed By: #### L 100.0100, L501.5200, L500.4050 ####[facility] [address] [place], [address] Urea nitrogen [Mass/Vol] 43 mg/dL High 4-19 [facility] Comment on above: Performed By: #### L 100.0100, L501.5200, L500.4050 ####[facility] [address] [place], [address] Eosinophil percentageOrdered By: David Corral on 03-25-2025 Eosinophils/100 WBC (Bld) 6.0 % High 0-5 [facility] Erythrocyte distribution wid th ratioOrdered By: David Corral on 03-25-2025 Erythrocyte distribution width (RBC) [Ratio] 13.5 % 11.6-14.6 [facility] Erythrocyte distribution wid th standard deviationOrdered By: David Corral on 03-25-2025 Erythrocyte distribution width (RBC) [Ratio] 47.2 fl High 35.1-43.9 [facility] Glomerular filtration rate ( GFR) estimation/1.73 sq m using serum, plasma, or whole bOrdered By: David Corral on 03-25-2025 GFR/1.73 sq M.predicted among non-blacks MDRD (S/P/Bld) [Vol rate/Area] 27 mL/min/{1.73_m2} Low >60 [facility] Hematocrit Auto (Bld) [Volum e fraction]Ordered By: David Corral on 03-25-2025 Hematocrit (Bld) [Volume fraction] 32.2 % Low 37-47 [facility] Hemoglobin measurementOrdere d By: David Corral on 03-25-2025 Hemoglobin (Bld) [Mass/Vol] 10.8 g/dL Low 12.0-15.0 [facility] Immature granulocytes/100 WB C Auto (Bld)Ordered By: David Corral on 03-25-2025 Immature granulocytes/100 WBC (Bld) 0.700 % 0.0-0.9 [facility] MCV (mean corpuscular volume ) determinationOrdered By: David Corral on 03-25-2025 MCV (RBC) [Entitic vol] 95.0 fL 81-99 [facility] Magnesiumon 03-25-2025 Magnesium [Mass/Vol] 1.4 mg/dL Low 1.5-2.2 [facility] Comment on above: Performed By: #### L 100.0100, L501.5200, L500.4050 ####[facility] [address] [place], [address] Magnesium measurement (mass/ volume)Ordered By: David Corral on 03-25-2025 Magnesium (Unsp spec) [Mass/Vol] 1.4 mg/dL Low 1.5-2.2 [facility] Mean corpuscular hemoglobin (MCH) determinationOrdered By: David Corral on 03-25-2025 MCH (RBC) [Entitic mass] 31.9 pg 27.0-32.0 [facility] Monocyte percentageOrdered B y: David Corral on 03-25-2025 Monocytes/100 WBC (Bld) 3.4 % 0-10 [facility] Neutrophil percentageOrdered By: David Corral on 03-25-2025 Neutrophils/100 WBC (Bld) 60.7 % 47-70 [facility] No Panel InformationOrdered By: David Corral on 03-25-2025 19 U/L <32 [facility] Oncology Visit Reporton 02-28 Oncology Visit Report Normal [facility] Platelet countOrdered By: Nisa Corral on 03-25-2025 Platelets (Bld) [#/Vol] 155 10*3/uL 150-450 [facility] Potassium measurement (mass/ volume)Ordered By: David Corral on 03-25-2025 Potassium (Unsp spec) [Mass/Vol] 3.8 mmol/L 3.3-5.1 [facility] RBC Auto (Bld) [#/Vol]Ordere d By: David Corral on 03-25-2025 RBC (Bld) [#/Vol] 3.39 10*6/uL Low 4.2-5.4 [facility] Serum creatinine measurement (mass/volume)Ordered By: David Corral on 03-25-2025 Creatinine [Mass/Vol] 1.97 mg/dL High 0.70-1.20 [facility] Serum globulin measurementOr dered By: David Corral on 03-25-2025 Globulin (S) [Mass/Vol] 3.8 g/dL 2.2-4.2 [facility] Serum glucose measurement (m ass/volume)Ordered By: David Corral on 03-25-2025 Glucose [Mass/Vol] 115 mg/dL High 70-99 [facility] Serum or plasma alanine garcia otransferase (ALT) measurementOrdered By: David Corral on 03-25-2025 ALT [Catalytic activity/Vol] 11 U/L <35 [facility] Serum or plasma albumin addie urement (mass/volume)Ordered By: David Corral on 03-25-2025 Albumin [Mass/Vol] 3.9 g/dL 3.4-4.8 [facility] Serum or plasma albumin/glob ulin mass ratioOrdered By: David Corral on 03-25-2025 Albumin/Globulin [Mass ratio] 1.0 {ratio} 0.9-2.4 [facility] Serum or plasma alkaline jabier sphatase measurementOrdered By: David Corral on 03-25-2025 ALP [Catalytic activity/Vol] 82 U/L 35-104 [facility] Serum or plasma calcium addie urement (mass/volume)Ordered By: David Corral on 03-25-2025 Calcium [Mass/Vol] 9.6 mg/dL 7.6-11.0 [facility] Serum or plasma urea nitroge n measurement (mass/volume)Ordered By: David Corral on 03-25-2025 Urea nitrogen [Mass/Vol] 43 mg/dL High 4-19 [facility] Sodium levelOrdered By: Jacky henderson [place] on 03-25-2025 Sodium [Moles/Vol] 140 mmol/L 133-145 [facility] Total proteinOrdered By: Leonard díaz Ellis on 03-25-2025 Protein [Mass/Vol] 7.7 g/dL 5.9-8.4 [facility] White blood cell (WBC) count Ordered By: David Ellis on 03-25-2025 WBC (Bld) [#/Vol] 4.1 10*3/uL Low 4.4-11.0 [facility] Bilirubin Test strip Ql (U)O rdered By: David Ellis on 03-18-2025 Bilirubin Ql (U) Negative Negative [facility] CBC W/Diff, Automatedon 02-28 Absolute Neut Normal 2.0-7.7 [facility] Comment on above: Result Comment: DUPL ICATE ORDER Performed By: #### L 400.0001, L100.0100, L500.4050 ####[facility] [address] [place], [address] HCT Normal 37-47 [facility] Comment on above: Result Comment: DUPL ICATE ORDER Performed By: #### L 400.0001, L100.0100, L500.4050 ####[facility] [address] [place], [address] HGB Normal 12.0-15.0 [facility] Comment on above: Result Comment: DUPL ICATE ORDER Performed By: #### L 400.0001, L100.0100, L500.4050 ####[facility] [address] [place], [address] MCH Normal 27.0-32.0 [facility] Comment on above: Result Comment: DUPL ICATE ORDER Performed By: #### L 400.0001, L100.0100, L500.4050 ####[facility] [address] [place], [address] MCHC Normal 32-36 [facility] Comment on above: Result Comment: DUPL ICATE ORDER Performed By: #### L 400.0001, L100.0100, L500.4050 ####[facility] [address] [place], [address] MCV Normal 81-99 [facility] Comment on above: Result Comment: DUPL ICATE ORDER Performed By: #### L 400.0001, L100.0100, L500.4050 ####[facility] [address] [place], [address] NEUT% Normal 47-70 [facility] Comment on above: Result Comment: DUPL ICATE ORDER Performed By: #### L 400.0001, L100.0100, L500.4050 ####[facility] [address] [place], [address] PLT Normal 150-450 [facility] Comment on above: Result Comment: DUPL ICATE ORDER Performed By: #### L 400.0001, L100.0100, L500.4050 ####[facility] [address] [place], [address] RDW CV Normal 11.6-14.6 [facility] Comment on above: Result Comment: DUPL ICATE ORDER Performed By: #### L 400.0001, L100.0100, L500.4050 ####[facility] [address] [place], [address] RDW SD Normal 35.1-43.9 [facility] Comment on above: Result Comment: DUPL ICATE ORDER Performed By: #### L 400.0001, L100.0100, L500.4050 ####[facility] [address] [place], [address] Comprehensive Metabolic Prof ilon 03-18-2025 ALB Normal 3.4-4.8 [facility] Comment on above: Result Comment: DUPL ICATE ORDER Performed By: #### L 400.0001, L100.0100, L500.4050 ####[facility] [address] [place], [address] ALK PHOS Normal 35-104 [facility] Comment on above: Result Comment: DUPL ICATE ORDER Performed By: #### L 400.0001, L100.0100, L500.4050 ####[facility] [address] [place], [address] ALT Normal <=34 [facility] Comment on above: Result Comment: DUPL ICATE ORDER Performed By: #### L 400.0001, L100.0100, L500.4050 ####[facility] [address] [place], [address] AST Normal <=31 [facility] Comment on above: Result Comment: DUPL ICATE ORDER Performed By: #### L 400.0001, L100.0100, L500.4050 ####[facility] [address] [place], [address] BUN Normal 4-19 [facility] Comment on above: Result Comment: DUPL ICATE ORDER Performed By: #### L 400.0001, L100.0100, L500.4050 ####[facility] [address] [place], [address] BUN/CRE Normal 10-20 [facility] Comment on above: Result Comment: DUPL ICATE ORDER Performed By: #### L 400.0001, L100.0100, L500.4050 ####[facility] [address] [place], [address] Calcium Normal 7.6-11.0 [facility] Comment on above: Result Comment: DUPL ICATE ORDER Performed By: #### L 400.0001, L100.0100, L500.4050 ####[facility] [address] [place], [address] CL Normal 98-108 [facility] Comment on above: Result Comment: DUPL ICATE ORDER Performed By: #### L 400.0001, L100.0100, L500.4050 ####[facility] [address] [place], [address] CO2 Normal 21.0-32.0 [facility] Comment on above: Result Comment: DUPL ICATE ORDER Performed By: #### L 400.0001, L100.0100, L500.4050 ####[facility] [address] [place], [address] CREAT,SERUM Normal 0.70-1.20 [facility] Comment on above: Result Comment: DUPL ICATE ORDER Performed By: #### L 400.0001, L100.0100, L500.4050 ####[facility] [address] [place], [address] eGFR Normal >60 [facility] Comment on above: Result Comment: DUPL ICATE ORDER Performed By: #### L 400.0001, L100.0100, L500.4050 ####[facility] [address] [place], [address] GAP Normal 5-15 [facility] Comment on above: Result Comment: DUPL ICATE ORDER Performed By: #### L 400.0001, L100.0100, L500.4050 ####[facility] [address] [place], [address] GLU Normal 70-99 [facility] Comment on above: Result Comment: DUPL ICATE ORDER Performed By: #### L 400.0001, L100.0100, L500.4050 ####[facility] [address] [place], [address] Potassium Normal 3.3-5.1 [facility] Comment on above: Result Comment: DUPL ICATE ORDER Performed By: #### L 400.0001, L100.0100, L500.4050 ####[facility] [address] [place], [address] T BILI Normal 0.00-1.30 [facility] Comment on above: Result Comment: DUPL ICATE ORDER Performed By: #### L 400.0001, L100.0100, L500.4050 ####[facility] [address] [place], [address] T PROT Normal 5.9-8.4 [facility] Comment on above: Result Comment: DUPL ICATE ORDER Performed By: #### L 400.0001, L100.0100, L500.4050 ####[facility] [address] [place], [address] Comprehensive Metabolic Profil Normal 133-145 [facility] Comment on above: Result Comment: DUPL ICATE ORDER Performed By: #### L 400.0001, L100.0100, L500.4050 ####[facility] [address] [place], [address] Ketones Test strip Ql (U)Ord ered By: David Corral on 03-18-2025 Ketones Ql (U) Negative Negative [facility] Mucus LM Ql (Urine sed)Order ed By: David Corral on 03-18-2025 Mucus Ql (Urine sed) 0 SEEN /hpf [facility] Nitrite Test strip Ql (U)Ord ered By: David Corral on 03-18-2025 Nitrite Ql (U) Negative Negative [facility] Oncology Visit Reporton 02-28 Oncology Visit Report Normal [facility] Protein Test strip Ql (U)Ord ered By: David Corral on 03-18-2025 Protein Ql (U) 100 mg/dl High Negative [facility] Squamous epithelial cells de tection in urine sediment by light microscopyOrdered By: David Corral on 03-18-2025 Epithelial cells.squamous LM Ql (Urine sed) 0-5 SEEN /hpf 5-10 [facility] Urinalysis, Completeon 03-18 EPI,SQUAMOUS 0-5 SEEN Normal 5-10 [facility] Comment on above: Order Comment: FRANDY CTOR TO SPECIFY Performed By: #### L 400.0001 ####[facility] [address] [place], [address] BACTERIA 0 SEEN Normal None Seen [facility] Comment on above: Order Comment: FRANDY CTOR TO SPECIFY Performed By: #### L 400.0001 ####[facility] [address] [place], [address] Mucus Ql (Urine sed) 0 SEEN Normal [facility] Comment on above: Order Comment: FRANDY CTOR TO SPECIFY Performed By: #### L 400.0001 ####[facility] [address] [place], [address] RBC 0 SEEN Normal 0-5 [facility] Comment on above: Order Comment: FRANDY CTOR TO SPECIFY Performed By: #### L 400.0001 ####[facility] [address] [place], [address] WBC 0 SEEN Normal 0-5 [facility] Comment on above: Order Comment: FRANDY CTOR TO SPECIFY Performed By: #### L 400.0001 ####[facility] [address] [place], [address] BACTERIA Normal None Seen [facility] Comment on above: Order Comment: FRANDY CTOR TO SPECIFY Result Comment: DUPL ICATE ORDER Performed By: #### L 400.0001, L100.0100, L500.4050 ####[facility] [address] [place], [address] BILIRUBIN URINE Normal Negative [facility] Comment on above: Order Comment: FRANDY CTOR TO SPECIFY Result Comment: DUPL ICATE ORDER Performed By: #### L 400.0001, L100.0100, L500.4050 ####[facility] [address] [place], [address] Clarity (U) Normal Clear [facility] Comment on above: Order Comment: COLLE CTOR TO SPECIFY Result Comment: DUPL ICATE ORDER Performed By: #### L 400.0001, L100.0100, L500.4050 ####[facility] [address] [place], [address] Color (U) Normal Yellow [facility] Comment on above: Order Comment: COLLE CTOR TO SPECIFY Result Comment: DUPL ICATE ORDER Performed By: #### L 400.0001, L100.0100, L500.4050 ####[facility] [address] [place], [address] EPI,SQUAMOUS Normal 5-10 [facility] Comment on above: Order Comment: COLLE CTOR TO SPECIFY Result Comment: DUPL ICATE ORDER Performed By: #### L 400.0001, L100.0100, L500.4050 ####[facility] [address] [place], [address] GLUCOSE, UR Normal Normal [facility] Comment on above: Order Comment: COLLE CTOR TO SPECIFY Result Comment: DUPL ICATE ORDER Performed By: #### L 400.0001, L100.0100, L500.4050 ####[facility] [address] [place], [address] KETONE UR Normal Negative [facility] Comment on above: Order Comment: COLLE CTOR TO SPECIFY Result Comment: DUPL ICATE ORDER Performed By: #### L 400.0001, L100.0100, L500.4050 ####[facility] [address] [place], [address] LEUK ESTERASE Normal Negative [facility] Comment on above: Order Comment: COLLE CTOR TO SPECIFY Result Comment: DUPL ICATE ORDER Performed By: #### L 400.0001, L100.0100, L500.4050 ####[facility] [address] [place], [address] Mucus Ql (Urine sed) Normal [facility] Comment on above: Order Comment: COLLE CTOR TO SPECIFY Result Comment: DUPL ICATE ORDER Performed By: #### L 400.0001, L100.0100, L500.4050 ####[facility] [address] [place], [address] Nitrite Ql (U) Normal Negative [facility] Comment on above: Order Comment: COLLE CTOR TO SPECIFY Result Comment: DUPL ICATE ORDER Performed By: #### L 400.0001, L100.0100, L500.4050 ####[facility] [address] [place], [address] OCCULT BLOOD-UR Normal Negative [facility] Comment on above: Order Comment: COLLE CTOR TO SPECIFY Result Comment: DUPL ICATE ORDER Performed By: #### L 400.0001, L100.0100, L500.4050 ####[facility] [address] [place], [address] pH UR Normal 5.0 - 8.0 [facility] Comment on above: Order Comment: COLLE CTOR TO SPECIFY Result Comment: DUPL ICATE ORDER Performed By: #### L 400.0001, L100.0100, L500.4050 ####[facility] [address] [place], [address] PROT DIPSTX Normal Negative [facility] Comment on above: Order Comment: COLLE CTOR TO SPECIFY Result Comment: DUPL ICATE ORDER Performed By: #### L 400.0001, L100.0100, L500.4050 ####[facility] [address] [place], [address] RBC Normal 4.2-5.4 [facility] Comment on above: Order Comment: COLLE CTOR TO SPECIFY Result Comment: DUPL ICATE ORDER Performed By: #### L 400.0001, L100.0100, L500.4050 ####[facility] [address] [place], [address] SP.GR. DIPSTX Normal 1.002-1.03 0 [facility] Comment on above: Order Comment: COLLE CTOR TO SPECIFY Result Comment: DUPL ICATE ORDER Performed By: #### L 400.0001, L100.0100, L500.4050 ####[facility] [address] [place], [address] UR Preservative Normal [facility] Comment on above: Order Comment: COLLE CTOR TO SPECIFY Result Comment: DUPL ICATE ORDER Performed By: #### L 400.0001, L100.0100, L500.4050 ####[facility] [address] [place], [address] UROBILI Normal Normal [facility] Comment on above: Order Comment: COLLE CTOR TO SPECIFY Result Comment: DUPL ICATE ORDER Performed By: #### L 400.0001, L100.0100, L500.4050 ####[facility] [address] [place], [address] WBC Normal 4.4-11.0 [facility] Comment on above: Order Comment: COLLE CTOR TO SPECIFY Result Comment: DUPL ICATE ORDER Performed By: #### L 400.0001, L100.0100, L500.4050 ####[facility] [address] [place], [address] Urine clarityOrdered By: Leonard Corral on 03-18-2025 Clarity (U) Clear Clear [facility] Urine color determinationOrd ered By: David Corral on 03-18-2025 Color (U) Yellow Yellow [facility] Urine glucose detectionOrder ed By: David Corral on 03-18-2025 Glucose Ql (U) Normal mg/dl Normal [facility] Urine leukocyte esterase det ection by dipstickOrdered By: David Corral on 03-18-2025 Leukocyte esterase Test strip Ql (U) Negative Negative [facility] Urine pHOrdered By: David gillespie on 03-18-2025 pH (U) 6.0 [pH] 5.0 - 8.0 [facility] Urine sediment bacteria coun t by microscopy (number/high power field)Ordered By: David Corral on 03-18-2025 Bacteria LM.HPF (Urine sed) [#/Area] 0 /[HPF] None Seen [facility] Urine specific gravity measu rementOrdered By: David Corral on 03-18-2025 Specific gravity (U) [Rel density] 1.015 1.002-1.03 0 [facility] Urine urobilinogen measureme ntOrdered By: David Corral on 03-18-2025 Urobilinogen Ql (U) Normal mg/dl Normal [facility] White blood cell countOrdere d By: David Corral on 03-18-2025 White blood cell count 0 SEEN /hpf 0-5 [facility] Absolute lymphocyte countOrd ered By: David Corral on 03-17-2025 Lymphocytes Auto (Unsp spec) [#/Vol] 1.27 10*3/uL 0.83-4.51 [facility] Anion gap in Serum or Plasma Ordered By: David Corral on 03-17-2025 Anion gap [Moles/Vol] 13 mmol/L 5-15 [facility] Automated lymphocyte count a s percentage of total leukocytesOrdered By: David Corral on 03-17-2025 Lymphocytes/100 WBC Auto (Unsp spec) 18.4 % Low 19- [facility] BUN/creatinine ratioOrdered By: David Corral on 03-17-2025 Urea nitrogen/Creatinine [Mass ratio] 15.6 mg/mg 10-20 [facility] Basophil percentageOrdered B y: David Corral on 03-17-2025 Basophils/100 WBC (Bld) 0.1 % 0-1 [facility] Bilirubin, totalOrdered By: David Corral on 03-17-2025 Bilirubin [Mass/Vol] 0.46 mg/dL 0.00-1.30 [facility] CBC W/Diff, Automatedon 02-27 Absolute Lymph 1.27 X10 3/uL Normal 0.83-4.51 [facility] Comment on above: Performed By: #### L 100.0100, L400.0001, L501.5200, L500.4050 ####[facility] [address] [place], [address] Absolute Neut 4.7 X10 3/uL Normal 2.0-7.7 [facility] Comment on above: Performed By: #### L 100.0100, L400.0001, L501.5200, L500.4050 ####[facility] [address] [place], [address] Basophils/100 WBC (Bld) 0.1 % Normal 0-1 [facility] Comment on above: Performed By: #### L 100.0100, L400.0001, L501.5200, L500.4050 ####[facility] [address] [place], [address] Eosinophils/100 WBC (Bld) 4.3 % Normal 0-5 [facility] Comment on above: Performed By: #### L 100.0100, L400.0001, L501.5200, L500.4050 ####[facility] [address] [place], [address] Erythrocyte distribution width (RBC) [Ratio] 14.0 % Normal 11.6-14.6 [facility] Comment on above: Performed By: #### L 100.0100, L400.0001, L501.5200, L500.4050 ####[facility] [address] [place], [address] Hematocrit (Bld) [Volume fraction] 31.9 % Low 37-47 [facility] Comment on above: Performed By: #### L 100.0100, L400.0001, L501.5200, L500.4050 ####[facility] [address] [place], [address] Hemoglobin (Bld) [Mass/Vol] 10.5 g/dL Low 12.0-15.0 [facility] Comment on above: Performed By: #### L 100.0100, L400.0001, L501.5200, L500.4050 ####[facility] [address] [place], [address] IG% 0.400 Normal 0.0-0.9 [facility] Comment on above: Result Comment: IG% - Immature Granulocytes (promyelocytes, myelocytes andmetamyelocytes) > 1% indicates that a LEFT SHIFT is Present. Performed By: #### L 100.0100, L400.0001, L501.5200, L500.4050 ####[facility] [address] [place], [address] Lymphocytes/100 WBC (Bld) 18.4 % Low 19-41 [facility] Comment on above: Performed By: #### L 100.0100, L400.0001, L501.5200, L500.4050 ####[facility] [address] [place], [address] MCH (RBC) [Entitic mass] 32.2 pg High 27.0-32.0 [facility] Comment on above: Performed By: #### L 100.0100, L400.0001, L501.5200, L500.4050 ####[facility] [address] [place], [address] MCHC (RBC) [Mass/Vol] 32.9 g/dL Normal 32-36 [facility] Comment on above: Performed By: #### L 100.0100, L400.0001, L501.5200, L500.4050 ####[facility] [address] [place], [address] MCV (RBC) [Entitic vol] 97.9 fL Normal 81-99 [facility] Comment on above: Performed By: #### L 100.0100, L400.0001, L501.5200, L500.4050 ####[facility] [address] [place], [address] Monocytes/100 WBC (Bld) 8.8 % Normal 0-10 [facility] Comment on above: Performed By: #### L 100.0100, L400.0001, L501.5200, L500.4050 ####[facility] [address] [place], [address] Neutrophils/100 WBC (Bld) 68.0 % Normal 47-70 [facility] Comment on above: Performed By: #### L 100.0100, L400.0001, L501.5200, L500.4050 ####[facility] [address] [place], [address] Nucleated RBC (Bld) [#/Vol] 0 10*3/uL Normal 0-5 [facility] Comment on above: Performed By: #### L 100.0100, L400.0001, L501.5200, L500.4050 ####[facility] [address] [place], [address] Platelet mean volume (Bld) [Entitic vol] 12.4 fL High 6.2-12.0 [facility] Comment on above: Performed By: #### L 100.0100, L400.0001, L501.5200, L500.4050 ####[facility] [address] [place], [address] Platelets (Bld) [#/Vol] 187 10*3/uL Normal 150-450 [facility] Comment on above: Performed By: #### L 100.0100, L400.0001, L501.5200, L500.4050 ####[facility] [address] [place], [address] RBC (Bld) [#/Vol] 3.26 10*6/uL Low 4.2-5.4 [facility] Comment on above: Performed By: #### L 100.0100, L400.0001, L501.5200, L500.4050 ####[facility] [address] [place], [address] RDW SD 50.7 fl High 35.1-43.9 [facility] Comment on above: Performed By: #### L 100.0100, L400.0001, L501.5200, L500.4050 ####[facility] [address] [place], [address] WBC (Bld) [#/Vol] 6.9 10*3/uL Normal 4.4-11.0 [facility] Comment on above: Performed By: #### L 100.0100, L400.0001, L501.5200, L500.4050 ####[facility] [address] [place], [address] Carbon dioxide, total [Moles /volume] in Central venous bloodOrdered By: David Corral on 03-17-2025 CO2 [Moles/Vol] 24.4 mmol/L 21.0-32.0 [facility] Chloride assayOrdered By: Nisa Corral on 03-17-2025 Chloride [Moles/Vol] 104 mmol/L 98-108 [facility] Comprehensive Metabolic Prof ilon 03-17-2025 Albumin [Mass/Vol] 3.8 g/dL Normal 3.4-4.8 [facility] Comment on above: Performed By: #### L 100.0100, L400.0001, L501.5200, L500.4050 ####[facility] [address] [place], [address] Albumin/Globulin [Mass ratio] 1.1 {ratio} Normal 0.9-2.4 [facility] Comment on above: Performed By: #### L 100.0100, L400.0001, L501.5200, L500.4050 ####[facility] [address] [place], [address] ALK PHOS 79 U/L Normal 35-104 [facility] Comment on above: Performed By: #### L 100.0100, L400.0001, L501.5200, L500.4050 ####[facility] [address] [place], [address] ALT [Catalytic activity/Vol] 7 U/L Normal <=34 [facility] Comment on above: Performed By: #### L 100.0100, L400.0001, L501.5200, L500.4050 ####[facility] [address] [place], [address] AST [Catalytic activity/Vol] 14 U/L Normal <=31 [facility] Comment on above: Performed By: #### L 100.0100, L400.0001, L501.5200, L500.4050 ####[facility] [address] [place], [address] Bilirubin [Mass/Vol] 0.46 mg/dL Normal 0.00-1.30 [facility] Comment on above: Performed By: #### L 100.0100, L400.0001, L501.5200, L500.4050 ####[facility] [address] [place], [address] BUN/CRE 15.6 RATIO Normal 10-20 [facility] Comment on above: Performed By: #### L 100.0100, L400.0001, L501.5200, L500.4050 ####[facility] [address] [place], [address] Calcium [Mass/Vol] 9.9 mg/dL Normal 7.6-11.0 [facility] Comment on above: Performed By: #### L 100.0100, L400.0001, L501.5200, L500.4050 ####[facility] [address] [place], [address] Chloride [Moles/Vol] 104 mmol/L Normal 98-108 [facility] Comment on above: Performed By: #### L 100.0100, L400.0001, L501.5200, L500.4050 ####[facility] [address] [place], [address] CO2 [Moles/Vol] 24.4 mmol/L Normal 21.0-32.0 [facility] Comment on above: Performed By: #### L 100.0100, L400.0001, L501.5200, L500.4050 ####[facility] [address] [place], [address] Creatinine [Mass/Vol] 1.66 mg/dL High 0.70-1.20 [facility] Comment on above: Performed By: #### L 100.0100, L400.0001, L501.5200, L500.4050 ####[facility] [address] [place], [address] ECRCL 41.75 ml/min Low 50-250 [facility] Comment on above: Performed By: #### L 100.0100, L400.0001, L501.5200, L500.4050 ####[facility] [address] [place], [address] GAP 13 Normal 5-15 [facility] Comment on above: Performed By: #### L 100.0100, L400.0001, L501.5200, L500.4050 ####[facility] [address] [place], [address] GFR/1.73 sq M.predicted among non-blacks MDRD (S/P/Bld) [Vol rate/Area] 33 mL/min/{1.73_m2} Low >60 [facility] Comment on above: Result Comment: mL/m in/1.73m2 CKD-EPI Creatinine Equation (2020) Performed By: #### L 100.0100, L400.0001, L501.5200, L500.4050 ####[facility] [address] [place], [address] Globulin (S) [Mass/Vol] 3.5 g/dL Normal 2.2-4.2 [facility] Comment on above: Performed By: #### L 100.0100, L400.0001, L501.5200, L500.4050 ####[facility] [address] [place], [address] Glucose [Mass/Vol] 108 mg/dL High 70-99 [facility] Comment on above: Performed By: #### L 100.0100, L400.0001, L501.5200, L500.4050 ####[facility] [address] [place], [address] Potassium [Moles/Vol] 3.6 mmol/L Normal 3.3-5.1 [facility] Comment on above: Performed By: #### L 100.0100, L400.0001, L501.5200, L500.4050 ####[facility] [address] [place], [address] Sodium [Moles/Vol] 141 mmol/L Normal 133-145 [facility] Comment on above: Performed By: #### L 100.0100, L400.0001, L501.5200, L500.4050 ####[facility] [address] [place], [address] T PROT 7.3 g/dL Normal 5.9-8.4 [facility] Comment on above: Performed By: #### L 100.0100, L400.0001, L501.5200, L500.4050 ####[facility] [address] [place], [address] Urea nitrogen [Mass/Vol] 26 mg/dL High 4-19 [facility] Comment on above: Performed By: #### L 100.0100, L400.0001, L501.5200, L500.4050 ####[facility] [address] [place], [place], [address] Eosinophil percentageOrdered By: David Corral on 03-17-2025 Eosinophils/100 WBC (Bld) 4.3 % 0-5 [facility] Erythrocyte distribution wid th ratioOrdered By: Daivd Ellis on 03-17-2025 Erythrocyte distribution width (RBC) [Ratio] 14.0 % 11.6-14.6 [facility] Erythrocyte distribution wid th standard deviationOrdered By: David Ellis on 03-17-2025 Erythrocyte distribution width (RBC) [Ratio] 50.7 fl High 35.1-43.9 [facility] Glomerular filtration rate ( GFR) estimation/1.73 sq m using serum, plasma, or whole bOrdered By: David Corral on 03-17-2025 GFR/1.73 sq M.predicted among non-blacks MDRD (S/P/Bld) [Vol rate/Area] 33 mL/min/{1.73_m2} Low >60 [facility] Hematocrit Auto (Bld) [Volum e fraction]Ordered By: David Corral on 03-17-2025 Hematocrit (Bld) [Volume fraction] 31.9 % Low 37-47 [facility] Hemoglobin measurementOrdere d By: David Corral on 03-17-2025 Hemoglobin (Bld) [Mass/Vol] 10.5 g/dL Low 12.0-15.0 [facility] Immature granulocytes/100 WB C Auto (Bld)Ordered By: David Corral on 03-17-2025 Immature granulocytes/100 WBC (Bld) 0.400 % 0.0-0.9 [facility] MCV (mean corpuscular volume ) determinationOrdered By: David Corral on 03-17-2025 MCV (RBC) [Entitic vol] 97.9 fL 81-99 [facility] Magnesiumon 03-17-2025 Magnesium [Mass/Vol] 1.4 mg/dL Low 1.5-2.2 [facility] Comment on above: Performed By: #### L 100.0100, L400.0001, L501.5200, L500.4050 ####[facility] [address] [place], [address] Magnesium measurement (mass/ volume)Ordered By: David Corral on 03-17-2025 Magnesium (Unsp spec) [Mass/Vol] 1.4 mg/dL Low 1.5-2.2 [facility] Mean corpuscular hemoglobin (MCH) determinationOrdered By: David Corral on 03-17-2025 MCH (RBC) [Entitic mass] 32.2 pg High 27.0-32.0 [facility] Monocyte percentageOrdered B y: David Corral on 03-17-2025 Monocytes/100 WBC (Bld) 8.8 % 0-10 [facility] Neutrophil percentageOrdered By: David Corral on 03-17-2025 Neutrophils/100 WBC (Bld) 68.0 % 47-70 [facility] No Panel InformationOrdered By: David Corral on 03-17-2025 14 U/L <32 [facility] Platelet countOrdered By: Nisa Corral on 03-17-2025 Platelets (Bld) [#/Vol] 187 10*3/uL 150-450 [facility] Potassium measurement (mass/ volume)Ordered By: David Corral on 03-17-2025 Potassium (Unsp spec) [Mass/Vol] 3.6 mmol/L 3.3-5.1 [facility] RBC Auto (Bld) [#/Vol]Ordere d By: David Corral on 03-17-2025 RBC (Bld) [#/Vol] 3.26 10*6/uL Low 4.2-5.4 [facility] Serum creatinine measurement (mass/volume)Ordered By: David Corral on 03-17-2025 Creatinine [Mass/Vol] 1.66 mg/dL High 0.70-1.20 [facility] Serum globulin measurementOr dered By: David Corral on 03-17-2025 Globulin (S) [Mass/Vol] 3.5 g/dL 2.2-4.2 [facility] Serum glucose measurement (m ass/volume)Ordered By: David Corral on 03-17-2025 Glucose [Mass/Vol] 108 mg/dL High 70-99 [facility] Serum or plasma alanine garcia otransferase (ALT) measurementOrdered By: David Corral on 03-17-2025 ALT [Catalytic activity/Vol] 7 U/L <35 [facility] Serum or plasma albumin addie urement (mass/volume)Ordered By: David Corral on 03-17-2025 Albumin [Mass/Vol] 3.8 g/dL 3.4-4.8 [facility] Serum or plasma albumin/glob ulin mass ratioOrdered By: David Corral on 03-17-2025 Albumin/Globulin [Mass ratio] 1.1 {ratio} 0.9-2.4 [facility] Serum or plasma alkaline jabier sphatase measurementOrdered By: David Corral on 03-17-2025 ALP [Catalytic activity/Vol] 79 U/L 35-104 [facility] Serum or plasma calcium addie urement (mass/volume)Ordered By: David Corral on 03-17-2025 Calcium [Mass/Vol] 9.9 mg/dL 7.6-11.0 [facility] Serum or plasma urea nitroge n measurement (mass/volume)Ordered By: David Corral on 03-17-2025 Urea nitrogen [Mass/Vol] 26 mg/dL High 4-19 [facility] Sodium levelOrdered By: Jacky Corral on 03-17-2025 Sodium [Moles/Vol] 141 mmol/L 133-145 [facility] Total proteinOrdered By: Leonard Corral on 03-17-2025 Protein [Mass/Vol] 7.3 g/dL 5.9-8.4 [facility] Urinalysis, Completeon 03-17 BACTERIA 1+ /hpf Normal None Seen [facility] Comment on above: Order Comment: COLLE CTOR TO SPECIFY Performed By: #### L 100.0100, L400.0001, L501.5200, L500.4050 ####[facility] [address] [place], [address] EPI,SQUAMOUS 0-5 SEEN Normal 5-10 [facility] Comment on above: Order Comment: FRADNY CTOR TO SPECIFY Performed By: #### L 100.0100, L400.0001, L501.5200, L500.4050 ####[facility] [address] [place], [address] WBC 0-5 SEEN Normal 0-5 [facility] Comment on above: Order Comment: FRANDY CTOR TO SPECIFY Performed By: #### L 100.0100, L400.0001, L501.5200, L500.4050 ####[facility] [address] [place], [address] Mucus Ql (Urine sed) 0 SEEN Normal [facility] Comment on above: Order Comment: FRANDY CTOR TO SPECIFY Performed By: #### L 100.0100, L400.0001, L501.5200, L500.4050 ####[facility] [address] [place], [address] RBC 0 SEEN Normal 0-5 [facility] Comment on above: Order Comment: FRANDY CTOR TO SPECIFY Performed By: #### L 100.0100, L400.0001, L501.5200, L500.4050 ####[facility] [address] [place], [address] White blood cell (WBC) count Ordered By: David Corral on 03-17-2025 WBC (Bld) [#/Vol] 6.9 10*3/uL 4.4-11.0 [facility] Internal Medicine Office Vis iton 03-16-2025 Internal Medicine Office Visit Normal [facility] No Panel InformationOrdered By: Stephie Velarde on 03-16-2025 5.4 % 4.2-6.3 [facility] Cancer Antigen 125on 025 CA 125 23.6 U/mL Normal 0.0-38.1 [facility] Comment on above: Result Comment: [employer] e [employer] Electrochemiluminescence Immunoassay(ECLIA)Values obtained with different assay methods or kits cannotbe used interchangeably. Results cannot be interpreted asabsolute evidence of the presence or absence of malignantdisease.Performed at: [facility] [id number] [place], [place] [id number] Director: Joe Olivier PhD, Phone: [phone] Performed By: #### L 504.2610, L3100.5000, L503.6550 ####[facility] [address] [place], [place], [address] Absolute lymphocyte countOrd ered By: [facility] on 03-03-2025 Lymphocytes Auto (Unsp spec) [#/Vol] 1.35 10*3/uL 0.83-4.51 [facility] Absolute neutrophil countOrd ered By: [facility] on 03-03-2025 Neutrophils (Bld) [#/Vol] 5.3 10*3/uL 2.0-7.7 [facility] Anion gap in Serum or Plasma Ordered By: [facility] on 03-03-2025 Anion gap [Moles/Vol] 15 mmol/L 5-15 [facility] Automated lymphocyte count a s percentage of total leukocytesOrdered By: [facility] on 03-03-2025 Lymphocytes/100 WBC Auto (Unsp spec) 17.9 % Low 19-41 [facility] BUN/creatinine ratioOrdered By: [facility] on 03-03-2025 Urea nitrogen/Creatinine [Mass ratio] 19.0 mg/mg 10-20 [facility] Basophil percentageOrdered B y: David [facility] on 03-03-2025 Basophils/100 WBC (Bld) 0.4 % 0-1 [facility] Bilirubin, totalOrdered By: [facility] on 03-03-2025 Bilirubin [Mass/Vol] 0.43 mg/dL 0.00-1.30 [facility] CBC W/Diff, Automatedon Absolute Lymph 1.35 X10 3/uL Normal 0.83-4.51 [facility] Comment on above: Performed By: #### L 101.9900, L501.6710, L500.4050, L503.6030, L100.0100, L100.9950 ####[facility] [address] [place], [address] Absolute Neut 5.3 X10 3/uL Normal 2.0-7.7 [facility] Comment on above: Performed By: #### L 101.9900, L501.6710, L500.4050, L503.6030, L100.0100, L100.9950 ####[facility] [address] [place], [address] Basophils/100 WBC (Bld) 0.4 % Normal 0-1 [facility] Comment on above: Performed By: #### L 101.9900, L501.6710, L500.4050, L503.6030, L100.0100, L100.9950 ####[facility] [address] [place], [address] Eosinophils/100 WBC (Bld) 2.5 % Normal 0-5 [facility] Comment on above: Performed By: #### L 101.9900, L501.6710, L500.4050, L503.6030, L100.0100, L100.9950 ####[facility] [address] [place], [address] Erythrocyte distribution width (RBC) [Ratio] 14.5 % Normal 11.6-14.6 [facility] [facility] Comment on above: Performed By: #### L 101.9900, L501.6710, L500.4050, L503.6030, L100.0100, L100.9950 ####[facility] [address] [place], [address] Hematocrit (Bld) [Volume fraction] 35.0 % Low 37-47 [facility] Comment on above: Performed By: #### L 101.9900, L501.6710, L500.4050, L503.6030, L100.0100, L100.9950 ####[facility] [address] [place], [address] Hemoglobin (Bld) [Mass/Vol] 11.6 g/dL Low 12.0-15.0 [facility] Comment on above: Performed By: #### L 101.9900, L501.6710, L500.4050, L503.6030, L100.0100, L100.9950 ####[facility] [address] [place], [address] IG% 0.400 Normal 0.0-0.9 [facility] Comment on above: Result Comment: IG% - Immature Granulocytes (promyelocytes, myelocytes andmetamyelocytes) > 1% indicates that a LEFT SHIFT is Present. Performed By: #### L 101.9900, L501.6710, L500.4050, L503.6030, L100.0100, L100.9950 ####[facility] [address] [place], [address] Lymphocytes/100 WBC (Bld) 17.9 % Low 19-41 [facility] Comment on above: Performed By: #### L 101.9900, L501.6710, L500.4050, L503.6030, L100.0100, L100.9950 ####[facility] [address] [place], [address] MCH (RBC) [Entitic mass] 32.3 pg High 27.0-32.0 [facility] Comment on above: Performed By: #### L 101.9900, L501.6710, L500.4050, L503.6030, L100.0100, L100.9950 ####[facility] [address] [place], [address] MCHC (RBC) [Mass/Vol] 33.1 g/dL Normal 32-36 [facility] Comment on above: Performed By: #### L 101.9900, L501.6710, L500.4050, L503.6030, L100.0100, L100.9950 ####[facility] [address] [place], [address] MCV (RBC) [Entitic vol] 97.5 fL Normal 81-99 [facility] Comment on above: Performed By: #### L 101.9900, L501.6710, L500.4050, L503.6030, L100.0100, L100.9950 ####[facility] [address] [place], [address] Monocytes/100 WBC (Bld) 8.5 % Normal 0-10 [facility] Comment on above: Performed By: #### L 101.9900, L501.6710, L500.4050, L503.6030, L100.0100, L100.9950 ####[facility] [address] [place], [address] Neutrophils/100 WBC (Bld) 70.3 % High 47-70 [facility] Comment on above: Performed By: #### L 101.9900, L501.6710, L500.4050, L503.6030, L100.0100, L100.9950 ####[facility] [address] [place], [address] Nucleated RBC (Bld) [#/Vol] 0 10*3/uL Normal 0-5 [facility] Comment on above: Performed By: #### L 101.9900, L501.6710, L500.4050, L503.6030, L100.0100, L100.9950 ####[facility] [address] [place], [address] Platelet mean volume (Bld) [Entitic vol] 12.2 fL High 6.2-12.0 [facility] Comment on above: Performed By: #### L 101.9900, L501.6710, L500.4050, L503.6030, L100.0100, L100.9950 ####[facility] [address] [place], [address] Platelets (Bld) [#/Vol] 185 10*3/uL Normal 150-450 [facility] Comment on above: Performed By: #### L 101.9900, L501.6710, L500.4050, L503.6030, L100.0100, L100.9950 ####[facility] [address] [place], [address] RBC (Bld) [#/Vol] 3.59 10*6/uL Low 4.2-5.4 [facility] Comment on above: Performed By: #### L 101.9900, L501.6710, L500.4050, L503.6030, L100.0100, L100.9950 ####[facility] [address] [place], [address] RDW SD 52.0 fl High 35.1-43.9 [facility] Comment on above: Performed By: #### L 101.9900, L501.6710, L500.4050, L503.6030, L100.0100, L100.9950 ####[facility] [address] [place], [address] WBC (Bld) [#/Vol] 7.5 10*3/uL Normal 4.4-11.0 [facility] Comment on above: Performed By: #### L 101.9900, L501.6710, L500.4050, L503.6030, L100.0100, L100.9950 ####[facility] [address] [place], [address] CRPon 03-03-2025 C-REACTIVE PROT 24.10 mg/L High 0.0-3.0 [facility] Comment on above: Performed By: #### L 101.9900, L501.6710, L500.4050, L503.6030, L100.0100, L100.9950 ####[facility] [address] [place], [place], [id number] Cancer antigen 125 (CA-125) measurementOrdered By: David Corral on 03-03-2025 Cancer antigen 125 (CA-125) measurement 23.6 U/mL 0.0-38.1 [facility] Comment on above: [facility] El ectrochemiluminescence Immunoassay(ECLIA)Values obtained with different assay methods or kits cannotbe used interchangeably. Results cannot be interpreted asabsolute evidence of the presence or absence of malignantdisease.Performed at: [facility] [id number] Director: Joe Olivier PhD, Phone: [phone] Carbon dioxide, total [Moles /volume] in Central venous bloodOrdered By: David Corral on 03-03-2025 CO2 [Moles/Vol] 21.5 mmol/L 21.0-32.0 [facility] Chloride assayOrdered By: Nisa Corral on 03-03-2025 Chloride [Moles/Vol] 104 mmol/L 98-108 [facility] Comprehensive Metabolic Prof ilon 03-03-2025 Albumin [Mass/Vol] 4.2 g/dL Normal 3.4-4.8 [facility] Comment on above: Performed By: #### L 101.9900, L501.6710, L500.4050, L503.6030, L100.0100, L100.9950 ####[facility] [address] [place], [address] Albumin/Globulin [Mass ratio] 1.1 {ratio} Normal 0.9-2.4 [facility] Comment on above: Performed By: #### L 101.9900, L501.6710, L500.4050, L503.6030, L100.0100, L100.9950 ####[facility] [address] [place], [address] ALK PHOS 86 U/L Normal 35-104 [facility] Comment on above: Performed By: #### L 101.9900, L501.6710, L500.4050, L503.6030, L100.0100, L100.9950 ####[facility] [address] [place], [address] ALT [Catalytic activity/Vol] 11 U/L Normal <=34 [facility] Comment on above: Performed By: #### L 101.9900, L501.6710, L500.4050, L503.6030, L100.0100, L100.9950 ####[facility] [address] [place], [address] AST [Catalytic activity/Vol] 16 U/L Normal <=31 [facility] Comment on above: Performed By: #### L 101.9900, L501.6710, L500.4050, L503.6030, L100.0100, L100.9950 ####[facility] [address] [place], [address] Bilirubin [Mass/Vol] 0.43 mg/dL Normal 0.00-1.30 [facility] Comment on above: Performed By: #### L 101.9900, L501.6710, L500.4050, L503.6030, L100.0100, L100.9950 ####[facility] [address] [place], [address] BUN/CRE 19.0 RATIO Normal 10-20 [facility] Comment on above: Performed By: #### L 101.9900, L501.6710, L500.4050, L503.6030, L100.0100, L100.9950 ####[facility] [address] [place], [address] Calcium [Mass/Vol] 10.1 mg/dL Normal 7.6-11.0 [facility] Comment on above: Performed By: #### L 101.9900, L501.6710, L500.4050, L503.6030, L100.0100, L100.9950 ####[facility] [address] [place], [address] Chloride [Moles/Vol] 104 mmol/L Normal 98-108 [facility] Comment on above: Performed By: #### L 101.9900, L501.6710, L500.4050, L503.6030, L100.0100, L100.9950 ####[facility] [address] [place], [address] CO2 [Moles/Vol] 21.5 mmol/L Normal 21.0-32.0 [facility] Comment on above: Performed By: #### L 101.9900, L501.6710, L500.4050, L503.6030, L100.0100, L100.9950 ####[facility] [address] [place], [address] Creatinine [Mass/Vol] 2.38 mg/dL High 0.70-1.20 [facility] Comment on above: Performed By: #### L 101.9900, L501.6710, L500.4050, L503.6030, L100.0100, L100.9950 ####[facility] [address] [place], [address] ECRCL 29.12 ml/min Low 50-250 [facility] Comment on above: Performed By: #### L 101.9900, L501.6710, L500.4050, L503.6030, L100.0100, L100.9950 ####[facility] [address] [place], [address] GAP 15 Normal 5-15 [facility] Comment on above: Performed By: #### L 101.9900, L501.6710, L500.4050, L503.6030, L100.0100, L100.9950 ####[facility] [address] [place], [address] GFR/1.73 sq M.predicted among non-blacks MDRD (S/P/Bld) [Vol rate/Area] 22 mL/min/{1.73_m2} Low >60 [facility] Comment on above: Result Comment: mL/m in/1.73m2 CKD-EPI Creatinine Equation (2020) Performed By: #### L 101.9900, L501.6710, L500.4050, L503.6030, L100.0100, L100.9950 ####[facility] [address] [place], [address] Globulin (S) [Mass/Vol] 3.6 g/dL Normal 2.2-4.2 [facility] Comment on above: Performed By: #### L 101.9900, L501.6710, L500.4050, L503.6030, L100.0100, L100.9950 ####[facility] [address] [place], [address] Glucose [Mass/Vol] 98 mg/dL Normal 70-99 [facility] Comment on above: Performed By: #### L 101.9900, L501.6710, L500.4050, L503.6030, L100.0100, L100.9950 ####[facility] [address] [place], [address] Potassium [Moles/Vol] 3.7 mmol/L Normal 3.3-5.1 [facility] Comment on above: Performed By: #### L 101.9900, L501.6710, L500.4050, L503.6030, L100.0100, L100.9950 ####[facility] [address] [place], [address] Sodium [Moles/Vol] 141 mmol/L Normal 133-145 [facility] Comment on above: Performed By: #### L 101.9900, L501.6710, L500.4050, L503.6030, L100.0100, L100.9950 ####[facility] [address] [place], [address] T PROT 7.8 g/dL Normal 5.9-8.4 [facility] Comment on above: Performed By: #### L 101.9900, L501.6710, L500.4050, L503.6030, L100.0100, L100.9950 ####[facility] [address] [place], [address] Urea nitrogen [Mass/Vol] 45 mg/dL High 4-19 [facility] Comment on above: Performed By: #### L 101.9900, L501.6710, L500.4050, L503.6030, L100.0100, L100.9950 ####[facility] [address] [place], [address] Eosinophil percentageOrdered By: David Corral on 03-03-2025 Eosinophils/100 WBC (Bld) 2.5 % 0-5 [facility] Erythrocyte Sed Rateon 03-03 SED RATE 38 mm/hr High 0-30 [facility] Comment on above: Performed By: #### L 101.9900, L501.6710, L500.4050, L503.6030, L100.0100, L100.9950 ####[facility] [address] [place], [address] Erythrocyte distribution wid th ratioOrdered By: David Corral on 03-03-2025 Erythrocyte distribution width (RBC) [Ratio] 14.5 % 11.6-14.6 [facility] Erythrocyte distribution wid th standard deviationOrdered By: David Corral on 03-03-2025 Erythrocyte distribution width (RBC) [Ratio] 52.0 fl High 35.1-43.9 [facility] Erythrocyte sedimentation ra teOrdered By: David Corral on 03-03-2025 ESR (Bld) [Velocity] 38 mm/h High 0-30 [facility] Ferritinon 03-03-2025 Ferritin [Mass/Vol] 1348 ng/mL High 22-378 [facility] Comment on above: Performed By: #### L 504.2610, L3100.5000, L503.6550 ####[facility] [address] [place], [address] Glomerular filtration rate ( GFR) estimation/1.73 sq m using serum, plasma, or whole bOrdered By: David Corral on 03-03-2025 GFR/1.73 sq M.predicted among non-blacks MDRD (S/P/Bld) [Vol rate/Area] 22 mL/min/{1.73_m2} Low >60 [facility] Comment on above: mL/min/1.73m2 CKD-EP I Creatinine Equation (2020) Hematocrit Auto (Bld) [Volum e fraction]Ordered By: David Corral on 03-03-2025 Hematocrit (Bld) [Volume fraction] 35.0 % Low 37-47 [facility] Hemoglobin measurementOrdere d By: David Corral on 03-03-2025 Hemoglobin (Bld) [Mass/Vol] 11.6 g/dL Low 12.0-15.0 [facility] Immature granulocytes/100 WB C Auto (Bld)Ordered By: David Corral on 03-03-2025 Immature granulocytes/100 WBC (Bld) 0.400 % 0.0-0.9 [facility] Comment on above: IG% - Immature Granu locytes (promyelocytes, myelocytes and metamyelocytes) > 1% indicates that a LEFT SHIFT is Present. Iron measurement (mass/mass) Ordered By: David Corral on 03-03-2025 Iron (Unsp spec) [Mass/Mass] 53 ug/dL 50-170 [facility] Iron+Iron Binding Capacityon 03-03-2025 TIBC 205 ug/dL Low 250-450 [facility] Comment on above: Performed By: #### L 101.9900, L501.6710, L500.4050, L503.6030, L100.0100, L100.9950 ####[facility] [address] [place], [address] Knee 4 or More Viewson 03-03 Knee 4 or More Views Normal [facility] Knee 4 or More Views Normal [facility] LDHon 03-03-2025 LDH 177 U/L Normal 84-246 [facility] Comment on above: Order Comment: 1 Performed By: #### L 504.2610, L3100.5000, L503.6550 ####[facility] [address] [place], [address] Laboratory - Chemistry and C hemistry - challengeOrdered By: David Corral on 03-03-2025 AST [Catalytic activity/Vol] 16 U/L <32 [facility] Lactate dehydrogenase (LDH) measurementOrdered By: David Corral on 03-03-2025 LDH [Catalytic activity/Vol] 177 U/L 84-246 [facility] MCV (mean corpuscular volume ) determinationOrdered By: David Corral on 03-03-2025 MCV (RBC) [Entitic vol] 97.5 fL 81-99 [facility] Mean corpuscular hemoglobin (MCH) determinationOrdered By: David Corral on 03-03-2025 MCH (RBC) [Entitic mass] 32.3 pg High 27.0-32.0 [facility] Mean corpuscular hemoglobin concentration (MCHC) determinationOrdered By: David Corral on 03-03-2025 MCHC (RBC) [Mass/Vol] 33.1 g/dL 32-36 [facility] Mean platelet volume determi nationOrdered By: David Corral on 03-03-2025 Platelet mean volume (Bld) [Entitic vol] 12.2 fL High 6.2-12.0 [facility] Monocyte percentageOrdered B y: David Corral on 03-03-2025 Monocytes/100 WBC (Bld) 8.5 % 0-10 [facility] Neutrophil percentageOrdered By: David Corral on 03-03-2025 Neutrophils/100 WBC (Bld) 70.3 % High 47-70 [facility] No Panel InformationOrdered By: David Corral on 03-03-2025 Unsaturated Iron Binding Capacity 152 ug/dL Low 228-428 [facility] 152 ug/dL Low 228-428 [facility] Nucleated red blood cell per centageOrdered By: David Corral on 03-03-2025 Nucleated RBC/100 WBC (Bld) [Ratio] 0 % 0-5 [facility] Oncology Visit Reporton 080 Oncology Visit Report Normal [facility] Platelet countOrdered By: Nisa Corral on 03-03-2025 Platelets (Bld) [#/Vol] 185 10*3/uL 150-450 [facility] Potassium measurement (mass/ volume)Ordered By: David Corral on 03-03-2025 Potassium (Unsp spec) [Mass/Vol] 3.7 mmol/L 3.3-5.1 [facility] RBC Auto (Bld) [#/Vol]Ordere d By: David Corral on 03-03-2025 RBC (Bld) [#/Vol] 3.59 10*6/uL Low 4.2-5.4 [facility] Retic Panelon 03-03-2025 IM RET FRACTION 4.90 Normal 3.00-15.90 [facility] Comment on above: Performed By: #### L 101.9900, L501.6710, L500.4050, L503.6030, L100.0100, L100.9950 ####[facility] [address] [place], [address] RET-HE 34.0 pg Normal 30-35 [facility] Comment on above: Performed By: #### L 101.9900, L501.6710, L500.4050, L503.6030, L100.0100, L100.9950 ####[facility] [address] [place], [address] Retic Count 1.19 Normal 0.5-1.5 [facility] Comment on above: Performed By: #### L 101.9900, L501.6710, L500.4050, L503.6030, L100.0100, L100.9950 ####[facility] [address] [place], [address] Reticulocyte hemoglobin equi valent (RET-He) measurementOrdered By: David Corral on 03-03-2025 Hemoglobin (Reticulocytes) [Entitic mass] 34.0 pg 30-35 [facility] Reticulocytes Auto (Bld) [#/ Vol]Ordered By: David Corral on 03-03-2025 Reticulocytes/100 RBC (Bld) 1.19 % 0.5-1.5 [facility] Serum creatinine measurement (mass/volume)Ordered By: David Corral on 03-03-2025 Creatinine [Mass/Vol] 2.38 mg/dL High 0.70-1.20 [facility] Serum globulin measurementOr dered By: David Corral on 03-03-2025 Globulin (S) [Mass/Vol] 3.6 g/dL 2.2-4.2 [facility] Serum glucose measurement (m ass/volume)Ordered By: David Corral on 03-03-2025 Glucose [Mass/Vol] 98 mg/dL 70-99 [facility] Serum or plasma C reactive p rotein measurement (mass/volume)Ordered By: David Corral on 03-03-2025 CRP [Mass/Vol] 24.10 mg/L High 0.0-3.0 [facility] Serum or plasma alanine garcia otransferase (ALT) measurementOrdered By: David Corral on 03-03-2025 ALT [Catalytic activity/Vol] 11 U/L <35 [facility] Serum or plasma albumin addie urement (mass/volume)Ordered By: David Corral on 03-03-2025 Albumin [Mass/Vol] 4.2 g/dL 3.4-4.8 [facility] Serum or plasma albumin/glob ulin mass ratioOrdered By: David Corral on 03-03-2025 Albumin/Globulin [Mass ratio] 1.1 {ratio} 0.9-2.4 [facility] Serum or plasma alkaline jabier sphatase measurementOrdered By: David Corral on 03-03-2025 ALP [Catalytic activity/Vol] 86 U/L 35-104 [facility] Serum or plasma calcium addie urement (mass/volume)Ordered By: David Corral on 03-03-2025 Calcium [Mass/Vol] 10.1 mg/dL 7.6-11.0 [facility] Serum or plasma ferritin vanita surement (mass/volume)Ordered By: David Corral on 03-03-2025 Ferritin [Mass/Vol] 1348 ng/mL High 22-378 [facility] Serum or plasma iron saturat ion measurement (mass fraction)Ordered By: David Corral on 03-03-2025 Iron saturation [Mass fraction] 26.0 % 13-59 [facility] Comment on above: Previous reported re sult: 26.0 %Edited by: ASAD on 03/03/25:1658 Serum or plasma urea nitroge n measurement (mass/volume)Ordered By: David Corral on 03-03-2025 Urea nitrogen [Mass/Vol] 45 mg/dL High 4-19 [facility] Sodium levelOrdered By: Jacky Corral on 03-03-2025 Sodium [Moles/Vol] 141 mmol/L 133-145 [facility] Total proteinOrdered By: Leonard Corral on 03-03-2025 Protein [Mass/Vol] 7.8 g/dL 5.9-8.4 [facility] White blood cell (WBC) count Ordered By: David Corral on 03-03-2025 WBC (Bld) [#/Vol] 7.5 10*3/uL 4.4-11.0 [facility] 36on 02-12-[address] Corral's nurse and made her aware of PET results showing recurrent ovarian cancer. Faxed note with confirmation with PET results. She would like us to push the imaging thru to [facility]. Chart sent to [facility] to get images sent to them. Normal [...] is scheduled for 02/06/25 @ 2:00PM in [facility] Normal [facility] Office Visiton 01-23-2025 Follow-up visit [id number] Dana Young jose miguel 1955 F Date Provider Department Center 01/23/2025 [id number] LYNNE 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 She was treated with debulking surgery followed by referral to medical oncology in [place]. Chemo with Dr Corral. In remission. Sees [...] current facility-administered medications for this visit. [facility] 36on 01-20-2025 36 Spoke with patient's child, scheduled new patient appt for 01/23/25 @ 12:30 PM in [facility] 36on 01-15-[address] [facility] and let them know patient was recommended to have ventral hernia repair. CT showed concerns of leo metastasis, so patient was also referred back to Dr. Carey for further evaluation, consideration of combo surgery if necessary. [facility] 36 Hailey calling from [facility] calling on behalf on the pt. She is currently residing there. -Dr Corral at the [facility] is who follows the pt for her care They would like us to to update them on this and what was discussed/found at the OV today, including the referral to Dr Aurelio Corral office phone : [phone] [facility] Office Visiton 01-15-2025 Follow-up visit [id number] Dana Young 1955 F Date Provider Department Center 01/15/2025 [id number] BRICE [facility] MMC ALS None Family History Problem Relation Age of Onset Diabetes Mother Breast cancer Mother Alcohol abuse Father Stroke Maternal Grandfather Diabetes Paternal Grandmother Family Status - Relation Status Age at Mother Father Maternal Grandfather Paternal Grandmother Level of Service:31586 [place] OFFICE/OUTPATIENT ESTABLISHED LOW MDM 20 MIN Reason for Visit and Comments: Follow-up [[id number]] - F/U CT RESULTS, DISCUSS HERNIA REPAIR [facility] Progress Noteon 01-15-2025 Progress Note [facility] Advanced Laparoscopic [facility] Patient Name: Britta [...] hernia, without obstruction or gangrene (Primary) - [facility] Gynecologic Oncology; Future History of ovarian cancer - [facility] Gynecologic Oncology; Future Class 3 severe obesity with body mass index (BMI) of 40.0 to 44.9 in adult, unspecified obesity type, unspecified whether serious comorbidity present Abnormal CT of the abdomen - [facility] Gynecologic Oncology; Future Ms. Young is a [...] Visit Reporton 12-28 Oncology Visit Report Normal [facility] Magnetic resonance imaging r eportOrdered By: Jerad Corona on 01-10-2025 Study report [facility] 36on 01-08-2025 36 Spoke to pt's aide Arden kostas about on 01/13/25 and she informed me that pt has a prior appt at 3pm on that day and asked for her to be moved to another time or day. I informed her that I have a opening 01/15/25 in [place] and she accepted it as it was closer to her location due to other clients. Pt has been rescheduled. [facility] Brain W/WO Contraston 2024 Brain W/WO Contrast Normal [facility] 36on 01-06-2025 36 Spoke to patient's s on, POA. Rec'd patient f/u in office to discuss results and next steps. Scheduled for next Sunday, 01/13 at 1:[address] [facility] 36 Son returned call- w laurie I returned back but had to leave a voicemail. [facility] Spoke with the son, who is POA. Patient had cervical cancer and was treated with radiation and chemotherapy. Per son, the patient was suppose to be rescheduled for the MRI and was not aware that this was not scheduled. He will be calling the office back with further information and questions. [facility] 36on 01-05-2025 36 Left message for the patient to call back. [facility] 36on 01-02-2025 36 Attempted to call again Normal S [facility] 36on 01-01-[address] results with Dr. Brice- Attempted to call patient to discuss results. Requested return call. [facility] 36 Called patient no an micki Lima MA [facility] CT ABDOMEN PELVIS WO IV CONT VALERIANOTon [...] Electronically Signed Date/Time: 12/31/2024 4:13 PM T [facility] 1955 [id number] Exam Date/Time: 12/31/2024 10:18 Procedure: CT ABDOMEN [...] Osteopenia. No discrete lytic or blastic lesion. [facility] Jayme Hastings MD - 12/31/2024 [...] Electronically Signed Date/Time: 12/31/2024 4:13 PM EDT [facility] Radiology Study observation (narrative) [facility] CT Abdomen and Pelvis WO con trastOrdered By: Jayme Hastings on 12-31-2024 [employer] Work Phone: 36on 12-30-2024 36 Spoke to pt's aide keren desai asked if she would like me to help with scheduling pt's CT and she said that she would call due to her having other clients and finding a day and time that would work [facility] 36on 12-29-2024 36 Name of caller: Bandar casper Contact phone number: [phone] Relationship to Patient: [facility] Provider: Dr. Blackman Practice: Neuroscience Chief Complaint/Reason [...] hours to return their call: Yes Normal [facility] Cancer Antigen 125on 025 CA 125 13.2 U/mL Normal 0.0-38.1 [facility] Comment on above: Result Comment: [employer] Electrochemiluminescence Immunoassay(ECLIA)Values obtained with different assay methods or kits cannotbe used interchangeably. Results cannot be interpreted asabsolute evidence of the presence or absence of malignantdisease.Performed at: [address] Director: Joe Olivier PhD, Phone: [phone] Performed By: #### L 500.2417, L3100.5000, L100.0100 ####[facility] [address] [place], [address] Absolute lymphocyte countOrd ered By: Berna Pierson on 12-25-2024 Lymphocytes Auto (Unsp spec) [#/Vol] 1.39 10*3/uL 0.83-4.51 [facility] Absolute neutrophil countOrd ered By: Berna Dangelo on 12-25-2024 Neutrophils (Bld) [#/Vol] 5.0 10*3/uL 2.0-7.7 [facility] Anion gap in Serum or Plasma Ordered By: Berna Dangelo on 12-25-2024 Anion gap [Moles/Vol] 14 mmol/L 5-15 [facility] Automated lymphocyte count a s percentage of total leukocytesOrdered By: Berna Pierson on 12-25-2024 Lymphocytes/100 WBC Auto (Unsp spec) 18.6 % Low 19-41 [facility] BUN/creatinine ratioOrdered By: Berna Pierson on 12-25-2024 Urea nitrogen/Creatinine [Mass ratio] 15.7 mg/mg 10-20 [facility] Basophil percentageOrdered B y: Berna Pierson on 12-25-2024 Basophils/100 WBC (Bld) 0.3 % 0-1 [facility] Bilirubin, totalOrdered By: Berna Pierson on 12-25-2024 Bilirubin [Mass/Vol] 0.31 mg/dL 0.00-1.30 [facility] CBC W/Diff, Automatedon 11-28 ATYPICAL LYMPH 1+ Normal [facility] Comment on above: Performed By: #### L 500.4050, L3100.5000, L100.0100 ####[facility] [address] [place], [place], [address] PLT EST A Normal ADEQ [facility] Comment on above: Performed By: #### L 500.4050, L3100.5000, L100.0100 ####[facility] [address] [place], [address] Cancer antigen 125 (CA-125) measurementOrdered By: Berna Pierson on 12-25-2024 Cancer antigen 125 (CA-125) measurement 13.2 U/mL 0.0-38.1 [facility] Comment on above: [employer] El ectrochemiluminescence Immunoassay(ECLIA)Values obtained with different assay methods or kits cannotbe used interchangeably. Results cannot be interpreted asabsolute evidence of the presence or absence of malignantdisease.Performed at: - [address] [id number] Director: Joe Olivier PhD, Phone: [phone] Carbon dioxide, total [Moles /volume] in Central venous bloodOrdered By: Berna Pierson on 12-25-2024 CO2 [Moles/Vol] 22.4 mmol/L 21.0-32.0 [facility] Chloride assayOrdered By: Ramírez Pierson on 12-25-2024 Chloride [Moles/Vol] 104 mmol/L 98-108 [facility] Comprehensive Metabolic Prof ilon 12-25-2024 Albumin [Mass/Vol] 4.2 g/dL Normal 3.4-4.8 [facility] Comment on above: Performed By: #### L 500.4050, L3100.5000, L100.0100 ####[facility] [address] [place], [address] Albumin/Globulin [Mass ratio] 1.2 {ratio} Normal 0.9-2.4 [facility] Comment on above: Performed By: #### L 500.4050, L3100.5000, L100.0100 ####[facility] [address] [place], [address] ALK PHOS 101 U/L Normal 35-104 [facility] Comment on above: Performed By: #### L 500.4050, L3100.5000, L100.0100 ####[facility] [address] [place], [address] ALT [Catalytic activity/Vol] 9 U/L Normal <=34 [facility] Comment on above: Performed By: #### L 500.4050, L3100.5000, L100.0100 ####[facility] [address] [place], [address] AST [Catalytic activity/Vol] 19 U/L Normal <=31 [facility] Comment on above: Performed By: #### L 500.4050, L3100.5000, L100.0100 ####[facility] [address] [place], [address] Bilirubin [Mass/Vol] 0.31 mg/dL Normal 0.00-1.30 [facility] Comment on above: Performed By: #### L 500.4050, L3100.5000, L100.0100 ####[facility] [address] [place], [address] BUN/CRE 15.7 RATIO Normal 10-20 [facility] Comment on above: Performed By: #### L 500.4050, L3100.5000, L100.0100 ####[facility] [address] [place], [address] Calcium [Mass/Vol] 9.8 mg/dL Normal 7.6-11.0 [facility] Comment on above: Performed By: #### L 500.4050, L3100.5000, L100.0100 ####[facility] [address] [place], [address] Chloride [Moles/Vol] 104 mmol/L Normal 98-108 [facility] Comment on above: Performed By: #### L 500.4050, L3100.5000, L100.0100 ####[facility] [address] [place], [address] CO2 [Moles/Vol] 22.4 mmol/L Normal 21.0-32.0 [facility] Comment on above: Performed By: #### L 500.4050, L3100.5000, L100.0100 ####[facility] [address] [place], [address] Creatinine [Mass/Vol] 1.66 mg/dL High 0.70-1.20 [facility] Comment on above: Performed By: #### L 500.4050, L3100.5000, L100.0100 ####[facility] [address] [place], [address] ECRCL 43.24 ml/min Low 50-250 [facility] Comment on above: Performed By: #### L 500.4050, L3100.5000, L100.0100 ####[facility] [address] [place], [address] GAP 14 Normal 5-15 [facility] Comment on above: Performed By: #### L 500.4050, L3100.5000, L100.0100 ####[facility] [address] [place], [address] GFR/1.73 sq M.predicted among non-blacks MDRD (S/P/Bld) [Vol rate/Area] 33 mL/min/{1.73_m2} Low >60 [facility] Comment on above: Result Comment: mL/m in/1.73m2 CKD-EPI Creatinine Equation (2020) Performed By: #### L 500.4050, L3100.5000, L100.0100 ####[facility] [address] [place], [address] Globulin (S) [Mass/Vol] 3.4 g/dL Normal 2.2-4.2 [facility] Comment on above: Performed By: #### L 500.4050, L3100.5000, L100.0100 ####[facility] [address] [place], [address] Glucose [Mass/Vol] 118 mg/dL High 70-99 [facility] Comment on above: Performed By: #### L 500.4050, L3100.5000, L100.0100 ####[facility] [address] [place], [address] Potassium [Moles/Vol] 3.8 mmol/L Normal 3.3-5.1 [facility] Comment on above: Performed By: #### L 500.4050, L3100.5000, L100.0100 ####[facility] [address] [place], [address] Sodium [Moles/Vol] 140 mmol/L Normal 133-145 [facility] Comment on above: Performed By: #### L 500.4050, L3100.5000, L100.0100 ####[facility] [address] [place], [address] T PROT 7.6 g/dL Normal 5.9-8.4 [facility] Comment on above: Performed By: #### L 500.4050, L3100.5000, L100.0100 ####[facility] [address] [place], [address] Urea nitrogen [Mass/Vol] 26 mg/dL High 4-19 [facility] Comment on above: Performed By: #### L 500.4050, L3100.5000, L100.0100 ####[facility] [address] [place], [address] Eosinophil percentageOrdered By: Berna Pierson on 12-25-2024 Eosinophils/100 WBC (Bld) 5.8 % High 0-5 [facility] Erythrocyte distribution wid th ratioOrdered By: Berna Pierson on 12-25-2024 Erythrocyte distribution width (RBC) [Ratio] 15.1 % High 11.6-14.6 [facility] Erythrocyte distribution wid th standard deviationOrdered By: Bernakeren Pierson on 12-25-2024 Erythrocyte distribution width (RBC) [Ratio] 55.1 fl High 35.1-43.9 [facility] Ferritinon 12-25-2024 Ferritin [Mass/Vol] 1476 ng/mL High 22-378 [facility] Comment on above: Order Comment: ADD O N PLEASE Performed By: #### L 504.2610, L503.6550 ####[facility] [address] [place], [address] Glomerular filtration rate ( GFR) estimation/1.73 sq m using serum, plasma, or whole bOrdered By: Berna Pierson on 12-25-2024 GFR/1.73 sq M.predicted among non-blacks MDRD (S/P/Bld) [Vol rate/Area] 33 mL/min/{1.73_m2} Low >60 [facility] Comment on above: mL/min/1.73m2 CKD-EP I Creatinine Equation (2020) Hematocrit Auto (Bld) [Volum e fraction]Ordered By: Berna Pierson on 12-25-2024 Hematocrit (Bld) [Volume fraction] 31.0 % Low 37-47 [facility] Hemoglobin measurementOrdere d By: Berna Pierson on 12-25-2024 Hemoglobin (Bld) [Mass/Vol] 9.9 g/dL Low 12.0-15.0 [facility] Immature granulocytes/100 WB C Auto (Bld)Ordered By: Berna Pierson on 12-25-2024 Immature granulocytes/100 WBC (Bld) 0.300 % 0.0-0.9 [facility] Comment on above: IG% - Immature Granu locytes (promyelocytes, myelocytes and metamyelocytes) > 1% indicates that a LEFT SHIFT is Present. LDHon 12-25-2024 LDH 196 U/L Normal 84-246 [facility] Comment on above: Order Comment: ADD O N PLEASE1 Performed By: #### L 504.2610, L503.6550 ####[facility] [address] [place], [address] Laboratory - Chemistry and C hemistry - challengeOrdered By: Berna Pierson on 12-25-2024 AST [Catalytic activity/Vol] 19 U/L <32 [facility] Lactate dehydrogenase (LDH) measurementOrdered By: David Corral on 12-25-2024 LDH [Catalytic activity/Vol] 196 U/L 84-246 [facility] MCV (mean corpuscular volume ) determinationOrdered By: Berna Pierson on 12-25-2024 MCV (RBC) [Entitic vol] 99.4 fL High 81-99 [facility] Mean corpuscular hemoglobin (MCH) determinationOrdered By: Berna Pierson on 12-25-2024 MCH (RBC) [Entitic mass] 31.7 pg 27.0-32.0 [facility] Mean corpuscular hemoglobin concentration (MCHC) determinationOrdered By: Berna Pierson on 12-25-2024 MCHC (RBC) [Mass/Vol] 31.9 g/dL Low 32-36 [facility] Mean platelet volume determi nationOrdered By: Berna Pierson on 12-25-2024 Platelet mean volume (Bld) [Entitic vol] 11.8 fL 6.2-12.0 [facility] Monocyte percentageOrdered B y: Berna Pierson on 12-25-2024 Monocytes/100 WBC (Bld) 7.6 % 0-10 [facility] Neutrophil percentageOrdered By: Berna Pierson on 12-25-2024 Neutrophils/100 WBC (Bld) 67.4 % 47-70 [facility] No Panel InformationOrdered By: Berna Pierson on 12-25-2024 19 U/L <32 [facility] Nucleated red blood cell per centageOrdered By: Berna Pierson on 12-25-2024 Nucleated RBC/100 WBC (Bld) [Ratio] 0 % 0-5 [facility] Oncology Visit Reporton 11-28 Oncology Visit Report Normal [facility] Platelet countOrdered By: Ramírez Pierson on 12-25-2024 Platelets (Bld) [#/Vol] 195 10*3/uL 150-450 [facility] Platelet estimateOrdered By: Berna Pierson on 12-25-2024 Platelets LM Ql (Bld) A ADEQ [facility] Potassium measurement (mass/ volume)Ordered By: Berna Pierson on 12-25-2024 Potassium (Unsp spec) [Mass/Vol] 3.8 mmol/L 3.3-5.1 [facility] RBC Auto (Bld) [#/Vol]Ordere d By: Berna Pierson on 12-25-2024 RBC (Bld) [#/Vol] 3.12 10*6/uL Low 4.2-5.4 [facility] Serum creatinine measurement (mass/volume)Ordered By: Berna Pierson on 12-25-2024 Creatinine [Mass/Vol] 1.66 mg/dL High 0.70-1.20 [facility] Serum globulin measurementOr dered By: Berna Pierson on 12-25-2024 Globulin (S) [Mass/Vol] 3.4 g/dL 2.2-4.2 [facility] Serum glucose measurement (m ass/volume)Ordered By: Berna Pierson on 12-25-2024 Glucose [Mass/Vol] 118 mg/dL High 70-99 [facility] Serum or plasma alanine garcia otransferase (ALT) measurementOrdered By: Berna Pierson on 12-25-2024 ALT [Catalytic activity/Vol] 9 U/L <35 [facility] Serum or plasma albumin addie urement (mass/volume)Ordered By: Berna Pierson on 12-25-2024 Albumin [Mass/Vol] 4.2 g/dL 3.4-4.8 [facility] Serum or plasma albumin/glob ulin mass ratioOrdered By: Berna Pierson on 12-25-2024 Albumin/Globulin [Mass ratio] 1.2 {ratio} 0.9-2.4 [facility] Serum or plasma alkaline jabier sphatase measurementOrdered By: Berna Pierson on 12-25-2024 ALP [Catalytic activity/Vol] 101 U/L 35-104 [facility] Serum or plasma calcium addie urement (mass/volume)Ordered By: Berna Pierson on 12-25-2024 Calcium [Mass/Vol] 9.8 mg/dL 7.6-11.0 [facility] Serum or plasma ferritin vanita surement (mass/volume)Ordered By: David Corral on 12-25-2024 Ferritin [Mass/Vol] 1476 ng/mL High 22-378 [facility] Serum or plasma urea nitroge n measurement (mass/volume)Ordered By: Berna Pierson on 12-25-2024 Urea nitrogen [Mass/Vol] 26 mg/dL High 4-19 [facility] Sodium levelOrdered By: Berna Pierson on 12-25-2024 Sodium [Moles/Vol] 140 mmol/L 133-145 [facility] Total proteinOrdered By: Jessica Pierson on 12-25-2024 Protein [Mass/Vol] 7.6 g/dL 5.9-8.4 [facility] Vitamin B12on 12-25-2024 Cobalamin (Vitamin B12) [Mass/Vol] 341 pg/mL Normal 180-914 [facility] Comment on above: Order Comment: ADD O N PLEASE Performed By: #### L 503.0106 ####[facility] [address] [place], [address] Vitamin B12 ser/plasOrdered By: David Corral on 12-25-2024 Cobalamin (Vitamin B12) [Mass/Vol] 341 pg/mL 180-914 [facility] White blood cell (WBC) count Ordered By: Berna Pierson on 12-25-2024 WBC (Bld) [#/Vol] 7.5 10*3/uL 4.4-11.0 [facility] Office Visiton 12-23-2024 Follow-up visit [id number] Dana Yougn [facility] 1955 F Date Provider Department Center 12/23/2024 [id number] BRICE [facility] ACH ALS None Family History Problem Relation Age of Onset Diabetes Mother Diabetes Paternal Grandmother Alcohol abuse Father Stroke Maternal Grandfather Breast cancer Mother Family Status - Relation Status Age at Mother Alive Paternal Grandmother Father Alive Maternal Grandfather Level of Service:17764 [place] OFFICE/OUTPATIENT NEW MODERATE MDM 45 MINUTES Reason for Visit and Comments: New Patient [542] - ALS RELATIONS LIAISON REFERRAL DR LI- PERIUMBILICAL , INCISIONAL HERNIA Normal [facility] Progress Noteon 12-23-2024 Progress Note [facility] Advanced Laparoscopic Surgery Patient Name: Britta [...] Former smoker. Notes reviewed: - Cara Fernandes [facility], 11/17/24 Data reviewed: - CT abd/pel, 09/15/20: [...] transfusion Hy (more content not included)... [facility] Progress Note We want to inform yo u that your patient's blood pressure was noted to be elevated in our office today. We thank you for trusting us with your patient's health. Last BP: BP Readings from Last 3 Encounters: 12/23/24 (!) 193/105 11/20/24 (!) 144/78 11/19/24 135/[address] [facility] 12-04-2024 36 Spoke to Deepa and pt is scheduled on 12/23/24 due to pt other appt conflict [facility] 12-03-2024 36 Isabelle from [facility] would like to know when patient is going to be scheduled. She can be reached at [phone] [facility] 11-24-2024 36 We have been unable to reach your patient to schedule their testing. Test Name: dewayne/emg 1st Attempt: 11/20 2nd Attempt: 11/21 3rd attempt; 11/[address] 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 [facility] Office Visiton 11-20-2024 Follow-up visit [id number] Dana [place] 1955 F Date Provider Department Center 11/20/2024 EDUIN LLOYD [facility] NEURO F None Family History Problem Relation Age of Onset Diabetes Mother Diabetes Paternal Grandmother Alcohol abuse Father Stroke Maternal Grandfather Breast cancer Mother Family Status - Relation Status Age at Mother Alive Paternal Grandmother Father Alive Maternal Grandfather Level of Service:59725 [place] OFFICE/OUTPATIENT NEW LOW MDM 30 MINUTES Reason for Visit and Comments: New Patient [542] - Leg weakness x [address] [facility] Progress Noteon 11-20-2024 Progress Note [facility] [...] [facility] 11-19-[facility] Follow-up visit [id number] Dana Young [facility] 1955 F Date Provider Department Center 11/19/2024 [id number] PAN [facility] NROSURG None Family History Problem Relation Age of Onset Diabetes Mother Diabetes Paternal Grandmother Alcohol abuse Father Stroke Maternal Grandfather Breast cancer Mother Family Status - Relation Status Age at Mother Alive Paternal Grandmother Father Alive Maternal Grandfather Level of Service:01207 [place] OFFICE/OUTPATIENT NEW MODERATE MDM 45 MINUTES Reason [...] call to schedule Office Name: Neurosurgery [facility] Basic Metabolic Profile (BMP )on 10-01-2024 BUN Normal 4-19 [facility] Comment on above: Result Comment: Canc elled via OM: Order cancelled - Patient discharged Performed By: #### L 500.2500, L100.0100 ####[facility] [address] [place], [address] BUN/CRE Normal 10-20 [facility] Comment on above: Result Comment: Canc elled via OM: Order cancelled - Patient discharged Performed By: #### L 500.2500, L100.0100 ####[facility] [address] [place], [address] Calcium Normal 7.6-11.0 [facility] Comment on above: Result Comment: Canc elled via OM: Order cancelled - Patient discharged Performed By: #### L 500.2500, L100.0100 ####[facility] [address] [place], [address] CL Normal 98-108 [facility] Comment on above: Result Comment: Canc elled via OM: Order cancelled - Patient discharged Performed By: #### L 500.2500, L100.0100 ####[facility] [address] [place], [address] CO2 Normal 21.0-32.0 [facility] Comment on above: Result Comment: Canc elled via OM: Order cancelled - Patient discharged Performed By: #### L 500.2500, L100.0100 ####[facility] [address] [place], [address] CREAT,SERUM Normal 0.70-1.20 [facility] Comment on above: Result Comment: Canc elled via OM: Order cancelled - Patient discharged Performed By: #### L 500.2500, L100.0100 ####[facility] [address] [place], [address] eGFR Normal >60 [facility] Comment on above: Result Comment: Canc elled via OM: Order cancelled - Patient discharged Performed By: #### L 500.2500, L100.0100 ####[facility] [address] [place], [address] GAP Normal 5-15 [facility] Comment on above: Result Comment: Canc elled via OM: Order cancelled - Patient discharged Performed By: #### L 500.2500, L100.0100 ####[facility] [address] [place], [address] GLU Normal 70-99 [facility] Comment on above: Result Comment: Canc elled via OM: Order cancelled - Patient discharged Performed By: #### L 500.2500, L100.0100 ####[facility] [address] [place], [address] Potassium Normal 3.3-5.1 [facility] Comment on above: Result Comment: Canc elled via OM: Order cancelled - Patient discharged Performed By: #### L 500.2500, L100.0100 ####[facility] [address] [place], [address] Basic Metabolic Profile (BMP) Normal 133-145 [facility] Comment on above: Result Comment: Canc elled via OM: Order cancelled - Patient discharged Performed By: #### L 500.2500, L100.0100 ####[facility] [address] [place], [address] CBC W/Diff, Automatedon 03-0 5-2024 Absolute Neut Normal 2.0-7.7 [facility] Comment on above: Result Comment: Canc elled via OM: Order cancelled - Patient discharged Performed By: #### L 500.2500, L100.0100 ####[facility] [address] [place], [address] HCT Normal 37-47 [facility] Comment on above: Result Comment: Canc elled via OM: Order cancelled - Patient discharged Performed By: #### L 500.2500, L100.0100 ####[facility] [address] [place], [address] HGB Normal 12.0-15.0 [facility] Comment on above: Result Comment: Canc elled via OM: Order cancelled - Patient discharged Performed By: #### L 500.2500, L100.0100 ####[facility] [address] [place], [address] MCH Normal 27.0-32.0 [facility] Comment on above: Result Comment: Canc elled via OM: Order cancelled - Patient discharged Performed By: #### L 500.2500, L100.0100 ####[facility] [address] [place], [address] MCHC Normal 32-36 [facility] Comment on above: Result Comment: Canc elled via OM: Order cancelled - Patient discharged Performed By: #### L 500.2500, L100.0100 ####[facility] [address] [place], [address] MCV Normal 81-99 [facility] Comment on above: Result Comment: Canc elled via OM: Order cancelled - Patient discharged Performed By: #### L 500.2500, L100.0100 ####[facility] [address] [place], [address] NEUT% Normal 47-70 [facility] Comment on above: Result Comment: Canc elled via OM: Order cancelled - Patient discharged Performed By: #### L 500.2500, L100.0100 ####[facility] [address] [place], [address] PLT Normal 150-450 [facility] Comment on above: Result Comment: Canc elled via OM: Order cancelled - Patient discharged Performed By: #### L 500.2500, L100.0100 ####[facility] [address] [place], [address] RBC Normal 4.2-5.4 [facility] Comment on above: Result Comment: Canc elled via OM: Order cancelled - Patient discharged Performed By: #### L 500.2500, L100.0100 ####[facility] [address] [place], [address] RDW CV Normal 11.6-14.6 [facility] Comment on above: Result Comment: Canc elled via OM: Order cancelled - Patient discharged Performed By: #### L 500.2500, L100.0100 ####[facility] [address] [place], [address] RDW SD Normal 35.1-43.9 [facility] Comment on above: Result Comment: Canc elled via OM: Order cancelled - Patient discharged Performed By: #### L 500.2500, L100.0100 ####[facility] [address] [place], [address] WBC Normal 4.4-11.0 [facility] Comment on above: Result Comment: Canc elled via OM: Order cancelled - Patient discharged Performed By: #### L 500.2500, L100.0100 ####[facility] [address] [place], [address] Absolute lymphocyte countOrd ered By: Jose Fernandez on 09-30-2024 Lymphocytes Auto (Unsp spec) [#/Vol] 1.23 10*3/uL 0.83-4.51 [facility] Automated lymphocyte count a s percentage of total leukocytesOrdered By: Jose Fernandez on 09-30-2024 Lymphocytes/100 WBC Auto (Unsp spec) 15.2 % Low 19-41 [facility] BUN/creatinine ratioOrdered By: Jose Fernandez on 09-30-2024 Urea nitrogen/Creatinine [Mass ratio] 22.8 mg/mg High 10-20 [facility] Basic Metabolic Profile (BMP )on 09-30-2024 Anion gap [Moles/Vol] 12 mmol/L Normal 5-15 [facility] Comment on above: Performed By: #### L 100.0100, L500.2500 ####[facility] [address] [place], [address] BUN/CRE 22.8 RATIO High 10-20 [facility] Comment on above: Performed By: #### L 100.0100, L500.2500 ####[facility] [address] [place], [address] Calcium [Mass/Vol] 9.9 mg/dL Normal 7.6-11.0 [facility] Comment on above: Performed By: #### L 100.0100, L500.2500 ####[facility] [address] [place], [address] Chloride [Moles/Vol] 98 mmol/L Normal 96-108 [facility] Comment on above: Performed By: #### L 100.0100, L500.2500 ####[facility] [address] [place], [address] CO2 [Moles/Vol] 23.9 mmol/L Normal 22.0-29.0 [facility] Comment on above: Performed By: #### L 100.0100, L500.2500 ####[facility] [address] [place], [address] Creatinine [Mass/Vol] 2.29 mg/dL High 0.70-1.20 [facility] Comment on above: Performed By: #### L 100.0100, L500.2500 ####[facility] [address] [place], [address] ECRCL 30.70 ml/min Low 50-250 [facility] Comment on above: Performed By: #### L 100.0100, L500.2500 ####[facility] [address] [place], [address] GFR/1.73 sq M.predicted among non-blacks MDRD (S/P/Bld) [Vol rate/Area] 23 mL/min/{1.73_m2} Low >60 [facility] Comment on above: Result Comment: mL/m in/1.73m2 CKD-EPI Creatinine Equation (2020) Performed By: #### L 100.0100, L500.2500 ####[facility] [address] [place], [address] Glucose [Mass/Vol] 104 mg/dL High 70-99 [facility] Comment on above: Performed By: #### L 100.0100, L500.2500 ####[facility] [address] [place], [address] Potassium [Moles/Vol] 3.5 mmol/L Normal 3.3-5.1 [facility] Comment on above: Performed By: #### L 100.0100, L500.2500 ####[facility] [address] [place], [address] Sodium [Moles/Vol] 133 mmol/L Normal 133-145 [facility] Comment on above: Performed By: #### L 100.0100, L500.2500 ####[facility] [address] [place], [address] Urea nitrogen [Mass/Vol] 52 mg/dL High 4-19 [facility] Comment on above: Performed By: #### L 100.0100, L500.2500 ####[facility] [address] [place], [address] Basophil percentageOrdered B y: Jose Fernandez on 09-30-2024 Basophils/100 WBC (Bld) 0.5 % 0-1 [facility] CBC W/Diff, Automatedon Absolute Lymph 1.23 X10 3/uL Normal 0.83-4.51 [facility] Comment on above: Performed By: #### L 100.0100, L500.2500 ####[facility] [address] [place], [address] Absolute Neut 5.8 X10 3/uL Normal 2.0-7.7 [facility] Comment on above: Performed By: #### L 100.0100, L500.2500 ####[facility] [address] [place], [address] Basophils/100 WBC (Bld) 0.5 % Normal 0-1 [facility] Comment on above: Performed By: #### L 100.0100, L500.2500 ####[facility] [address] [place], [address] Eosinophils/100 WBC (Bld) 3.0 % Normal 0-5 [facility] Comment on above: Performed By: #### L 100.0100, L500.2500 ####[facility] [address] [place], [address] Erythrocyte distribution width (RBC) [Ratio] 14.5 % Normal 11.6-14.6 [facility] Comment on above: Performed By: #### L 100.0100, L500.2500 ####[facility] [address] [place], [address] Hematocrit (Bld) [Volume fraction] 29.0 % Low 37-47 [facility] Comment on above: Performed By: #### L 100.0100, L500.2500 ####[facility] [address] [place], [address] Hemoglobin (Bld) [Mass/Vol] 9.5 g/dL Low 12.0-15.0 [facility] Comment on above: Performed By: #### L 100.0100, L500.2500 ####[facility] [address] [place], [address] IG% 1.000 High 0.0-0.9 [facility] Comment on above: Result Comment: IG% - Immature Granulocytes (promyelocytes, myelocytes andmetamyelocytes) > 1% indicates that a LEFT SHIFT is Present. Performed By: #### L 100.0100, L500.2500 ####[facility] [address] [place], [address] Lymphocytes/100 WBC (Bld) 15.2 % Low 19-41 [facility] Comment on above: Performed By: #### L 100.0100, L500.2500 ####[facility] [address] [place], [address] MCH (RBC) [Entitic mass] 32.0 pg Normal 27.0-32.0 [facility] Comment on above: Performed By: #### L 100.0100, L500.2500 ####[facility] [address] [place], [address] MCHC (RBC) [Mass/Vol] 32.8 g/dL Normal 32-36 [facility] Comment on above: Performed By: #### L 100.0100, L500.2500 ####[facility] [address] [place], [address] MCV (RBC) [Entitic vol] 97.6 fL Normal 81-99 [facility] Comment on above: Performed By: #### L 100.0100, L500.2500 ####[facility] [address] [place], [address] Monocytes/100 WBC (Bld) 9.2 % Normal 0-10 [facility] Comment on above: Performed By: #### L 100.0100, L500.2500 ####[facility] [address] [place], [address] Neutrophils/100 WBC (Bld) 71.1 % High 47-70 [facility] Comment on above: Performed By: #### L 100.0100, L500.2500 ####[facility] [address] [place], [address] Nucleated RBC (Bld) [#/Vol] 0 10*3/uL Normal 0-5 [facility] Comment on above: Performed By: #### L 100.0100, L500.2500 ####[facility] [address] [place], [address] Platelet mean volume (Bld) [Entitic vol] 11.8 fL Normal 6.2-12.0 [facility] Comment on above: Performed By: #### L 100.0100, L500.2500 ####[facility] [address] [place], [address] Platelets (Bld) [#/Vol] 226 10*3/uL Normal 150-450 [facility] Comment on above: Performed By: #### L 100.0100, L500.2500 ####[facility] [address] [place], [address] RBC (Bld) [#/Vol] 2.97 10*6/uL Low 4.2-5.4 [facility] Comment on above: Performed By: #### L 100.0100, L500.2500 ####[facility] [address] [place], [address] RDW SD 51.7 fl High 35.1-43.9 [facility] Comment on above: Performed By: #### L 100.0100, L500.2500 ####[facility] [address] [place], [place], [address] WBC (Bld) [#/Vol] 8.1 10*3/uL Normal 4.4-11.0 [facility] Comment on above: Performed By: #### L 100.0100, L500.2500 ####[facility] [address] [place], [place], [address] Carbon dioxide measurementOr dered By: Jose Fernandez on 09-30-2024 CO2 [Moles/Vol] 23.9 mmol/L 22.0-29.0 [facility] Chloride measurementOrdered By: Jose Fernandez on 09-30-2024 Chloride [Moles/Vol] 98 mmol/L 96-108 [facility] Eosinophil percentageOrdered By: Jose Fernandez on 09-30-2024 Eosinophils/100 WBC (Bld) 3.0 % 0-5 [facility] Erythrocyte distribution wid th ratioOrdered By: Jose Fernandez on 09-30-2024 Erythrocyte distribution width (RBC) [Ratio] 14.5 % 11.6-14.6 [facility] Erythrocyte distribution wid th standard deviationOrdered By: Jose Fernandez on 09-30-2024 Erythrocyte distribution width (RBC) [Ratio] 51.7 fl High 35.1-43.9 [facility] Glomerular filtration rate ( GFR) estimation/1.73 sq m using serum, plasma, or whole bOrdered By: Jose Fernandez on 09-30-2024 GFR/1.73 sq M.predicted among non-blacks MDRD (S/P/Bld) [Vol rate/Area] 23 mL/min/{1.73_m2} Low >60 [facility] Hematocrit Auto (Bld) [Volum e fraction]Ordered By: Jose Fernandez on 09-30-2024 Hematocrit (Bld) [Volume fraction] 29.0 % Low 37-47 [facility] Hemoglobin measurementOrdere d By: Jose Fernandez on 09-30-2024 Hemoglobin (Bld) [Mass/Vol] 9.5 g/dL Low 12.0-15.0 [facility] Immature granulocytes/100 WB C Auto (Bld)Ordered By: Jose Fernandez on 09-30-2024 Immature granulocytes/100 WBC (Bld) 1.000 % High 0.0-0.9 [facility] MCV (mean corpuscular volume ) determinationOrdered By: Jose Fernandez on 09-30-2024 MCV (RBC) [Entitic vol] 97.6 fL 81-99 [facility] Mean corpuscular hemoglobin (MCH) determinationOrdered By: Jose Fernandez on 09-30-2024 MCH (RBC) [Entitic mass] 32.0 pg 27.0-32.0 [facility] Monocyte percentageOrdered B y: Jose Fernandez on 09-30-2024 Monocytes/100 WBC (Bld) 9.2 % 0-10 [facility] Neutrophil percentageOrdered By: Jose Fernandez on 09-30-2024 Neutrophils/100 WBC (Bld) 71.1 % High 47-70 [facility] Platelet countOrdered By: Corry Fernandez on 09-30-2024 Platelets (Bld) [#/Vol] 226 10*3/uL 150-450 [facility] RBC Auto (Bld) [#/Vol]Ordere d By: Jose Fernandez on 09-30-2024 RBC (Bld) [#/Vol] 2.97 10*6/uL Low 4.2-5.4 [facility] Serum creatinine measurement (mass/volume)Ordered By: Jose Fernandez on 09-30-2024 Creatinine [Mass/Vol] 2.29 mg/dL High 0.70-1.20 [facility] Serum glucose measurement (m ass/volume)Ordered By: Jose Fernandez on 09-30-2024 Glucose [Mass/Vol] 104 mg/dL High 70-99 [facility] Serum or plasma anion gap de termination (moles/volume)Ordered By: Jose Fernandez on 09-30-2024 Anion gap [Moles/Vol] 12 mmol/L 5-15 [facility] Serum or plasma calcium addie urement (mass/volume)Ordered By: Jose Fernandez on 09-30-2024 Calcium [Mass/Vol] 9.9 mg/dL 7.6-11.0 [facility] Serum or plasma potassium me asurementOrdered By: Jose Fernandez on 09-30-2024 Potassium [Moles/Vol] 3.5 mmol/L 3.3-5.1 [facility] Serum or plasma sodium measu rement (moles/volume)Ordered By: Jose Fernandez on 09-30-2024 Sodium [Moles/Vol] 133 mmol/L 133-145 [facility] Serum or plasma urea nitroge n measurement (mass/volume)Ordered By: Jose Fernandez on 09-30-2024 Urea nitrogen [Mass/Vol] 52 mg/dL High 4-19 [facility] White blood cell (WBC) count Ordered By: Jose Fernandez on 09-30-2024 WBC (Bld) [#/Vol] 8.1 10*3/uL 4.4-11.0 [facility] Bedside Glucoseon 09-29-2024 FINGERSTICK GLU 106 mg/dL Normal 74-106 [facility] Comment on above: Result Comment: ROLDAN SCHAFFER OF PATIENT CARE PER NURSING PROTOCOL Performed By: #### L 501.080 ####[facility] [address] [place], [place], [id number] Creatinine, Urineon 09-30-19 25 URINE CREAT 52.90 mg/dL Normal NO RANGE EST. [facility] Comment on above: Performed By: #### L 502.0300 ####[facility] [address] [place], [place], [id number] Glucose measurement at bedsi deOrdered By: Jose Fernandez on 09-29-2024 Glucose [Mass/Vol] 106 mg/dL 74-106 [facility] Bilirubin, totalOrdered By: Raymond Contreras on 09-28-2024 Bilirubin [Mass/Vol] 0.54 mg/dL 0.00-1.30 [facility] CBC W/Diff, Automatedon 03-0 2-2025 Absolute Lymph 0.87 X10 3/uL Normal 0.83-4.51 [facility] Comment on above: Performed By: #### L 501.2300, L501.5200, L100.0100, L500.4050 ####[facility] [address] [place], [address] Absolute Neut 6.5 X10 3/uL Normal 2.0-7.7 [facility] Comment on above: Performed By: #### L 501.2300, L501.5200, L100.0100, L500.4050 ####[facility] [address] [place], [address] Basophils/100 WBC (Bld) 0.1 % Normal 0-1 [facility] Comment on above: Performed By: #### L 501.2300, L501.5200, L100.0100, L500.4050 ####[facility] [address] [place], [address] Eosinophils/100 WBC (Bld) 1.1 % Normal 0-5 [facility] Comment on above: Performed By: #### L 501.2300, L501.5200, L100.0100, L500.4050 ####[facility] [address] [place], [address] Erythrocyte distribution width (RBC) [Ratio] 14.1 % Normal 11.6-14.6 [facility] Comment on above: Performed By: #### L 501.2300, L501.5200, L100.0100, L500.4050 ####[facility] [address] [place], [address] Hematocrit (Bld) [Volume fraction] 30.6 % Low 37-47 [facility] Comment on above: Performed By: #### L 501.2300, L501.5200, L100.0100, L500.4050 ####[facility] [address] [place], [address] Hemoglobin (Bld) [Mass/Vol] 10.2 g/dL Low 12.0-15.0 [facility] Comment on above: Performed By: #### L 501.2300, L501.5200, L100.0100, L500.4050 ####[facility] [address] [place], [address] IG% 0.700 Normal 0.0-0.9 [facility] Comment on above: Result Comment: IG% - Immature Granulocytes (promyelocytes, myelocytes andmetamyelocytes) > 1% indicates that a LEFT SHIFT is Present. Performed By: #### L 501.2300, L501.5200, L100.0100, L500.4050 ####[facility] [address] [place], [address] Lymphocytes/100 WBC (Bld) 10.3 % Low 19-41 [facility] Comment on above: Performed By: #### L 501.2300, L501.5200, L100.0100, L500.4050 ####[facility] [address] [place], [address] MCH (RBC) [Entitic mass] 32.0 pg Normal 27.0-32.0 [facility] Comment on above: Performed By: #### L 501.2300, L501.5200, L100.0100, L500.4050 ####[facility] [address] [place], [address] MCHC (RBC) [Mass/Vol] 33.3 g/dL Normal 32-36 [facility] Comment on above: Performed By: #### L 501.2300, L501.5200, L100.0100, L500.4050 ####[facility] [address] [place], [address] MCV (RBC) [Entitic vol] 95.9 fL Normal 81-99 [facility] Comment on above: Performed By: #### L 501.2300, L501.5200, L100.0100, L500.4050 ####[facility] [address] [place], [address] Monocytes/100 WBC (Bld) 10.7 % High 0-10 [facility] Comment on above: Performed By: #### L 501.2300, L501.5200, L100.0100, L500.4050 ####[facility] [address] [place], [address] Neutrophils/100 WBC (Bld) 77.1 % High 47-70 [facility] Comment on above: Performed By: #### L 501.2300, L501.5200, L100.0100, L500.4050 ####[facility] [address] [place], [address] Nucleated RBC (Bld) [#/Vol] 0 10*3/uL Normal 0-5 [facility] Comment on above: Performed By: #### L 501.2300, L501.5200, L100.0100, L500.4050 ####[facility] [address] [place], [address] Platelet mean volume (Bld) [Entitic vol] 12.2 fL High 6.2-12.0 [facility] Comment on above: Performed By: #### L 501.2300, L501.5200, L100.0100, L500.4050 ####[facility] [address] [place], [address] Platelets (Bld) [#/Vol] 198 10*3/uL Normal 150-450 [facility] Comment on above: Performed By: #### L 501.2300, L501.5200, L100.0100, L500.4050 ####[facility] [address] [place], [address] RBC (Bld) [#/Vol] 3.19 10*6/uL Low 4.2-5.4 [facility] Comment on above: Performed By: #### L 501.2300, L501.5200, L100.0100, L500.4050 ####[facility] [address] [place], [address] RDW SD 49.7 fl High 35.1-43.9 [facility] Comment on above: Performed By: #### L 501.2300, L501.5200, L100.0100, L500.4050 ####[facility] [address] [place], [address] WBC (Bld) [#/Vol] 8.5 10*3/uL Normal 4.4-11.0 [facility] Comment on above: Performed By: #### L 501.2300, L501.5200, L100.0100, L500.4050 ####[facility] [address] [place], [address] Comprehensive Metabolic Prof rion 09-28-2024 Albumin [Mass/Vol] 3.3 g/dL Low 3.4-4.8 [facility] Comment on above: Performed By: #### L 501.2300, L501.5200, L100.0100, L500.4050 ####[facility] [address] [place], [address] Albumin/Globulin [Mass ratio] 0.8 {ratio} Low 0.9-2.4 [facility] Comment on above: Performed By: #### L 501.2300, L501.5200, L100.0100, L500.4050 ####[facility] [address] [place], [address] ALK PHOS 101 U/L Normal 35-104 [facility] Comment on above: Performed By: #### L 501.2300, L501.5200, L100.0100, L500.4050 ####[facility] [address] [place], [address] ALT [Catalytic activity/Vol] 15 U/L Normal <=34 [facility] Comment on above: Performed By: #### L 501.2300, L501.5200, L100.0100, L500.4050 ####[facility] [address] [place], [address] Anion gap [Moles/Vol] 16 mmol/L High 5-15 [facility] Comment on above: Performed By: #### L 501.2300, L501.5200, L100.0100, L500.4050 ####[facility] [address] [place], [address] AST [Catalytic activity/Vol] 23 U/L Normal <=31 [facility] Comment on above: Performed By: #### L 501.2300, L501.5200, L100.0100, L500.4050 ####[facility] [address] [place], [address] Bilirubin [Mass/Vol] 0.54 mg/dL Normal 0.00-1.30 [facility] Comment on above: Performed By: #### L 501.2300, L501.5200, L100.0100, L500.4050 ####[facility] [address] [place], [address] BUN/CRE 20.2 RATIO High 10-20 [facility] Comment on above: Performed By: #### L 501.2300, L501.5200, L100.0100, L500.4050 ####[facility] [address] [place], [address] Calcium [Mass/Vol] 9.7 mg/dL Normal 7.6-11.0 [facility] Comment on above: Performed By: #### L 501.2300, L501.5200, L100.0100, L500.4050 ####[facility] [address] [place], [address] Chloride [Moles/Vol] 97 mmol/L Normal 96-108 [facility] Comment on above: Performed By: #### L 501.2300, L501.5200, L100.0100, L500.4050 ####[facility] [address] [place], [address] CO2 [Moles/Vol] 20.6 mmol/L Low 22.0-29.0 [facility] Comment on above: Performed By: #### L 501.2300, L501.5200, L100.0100, L500.4050 ####[facility] [address] [place], [address] Creatinine [Mass/Vol] 2.95 mg/dL High 0.70-1.20 [facility] Comment on above: Performed By: #### L 501.2300, L501.5200, L100.0100, L500.4050 ####[facility] [address] [place], [address] ECRCL 23.62 ml/min Low 50-250 [facility] Comment on above: Performed By: #### L 501.2300, L501.5200, L100.0100, L500.4050 ####[facility] [address] [place], [address] GFR/1.73 sq M.predicted among non-blacks MDRD (S/P/Bld) [Vol rate/Area] 17 mL/min/{1.73_m2} Low >60 [facility] Comment on above: Result Comment: mL/m in/1.73m2 CKD-EPI Creatinine Equation (2020) Performed By: #### L 501.2300, L501.5200, L100.0100, L500.4050 ####[facility] [address] [place], [address] Globulin (S) [Mass/Vol] 4.2 g/dL Normal 2.2-4.2 [facility] Comment on above: Performed By: #### L 501.2300, L501.5200, L100.0100, L500.4050 ####[facility] [address] [place], [address] Glucose [Mass/Vol] 114 mg/dL High 70-99 [facility] Comment on above: Performed By: #### L 501.2300, L501.5200, L100.0100, L500.4050 ####[facility] [address] [place], [address] Potassium [Moles/Vol] 3.7 mmol/L Normal 3.3-5.1 [facility] Comment on above: Performed By: #### L 501.2300, L501.5200, L100.0100, L500.4050 ####[facility] [address] [place], [address] Sodium [Moles/Vol] 133 mmol/L Normal 133-145 [facility] Comment on above: Performed By: #### L 501.2300, L501.5200, L100.0100, L500.4050 ####[facility] [address] [place], [address] T PROT 7.5 g/dL Normal 5.9-8.4 [facility] Comment on above: Performed By: #### L 501.2300, L501.5200, L100.0100, L500.4050 ####[facility] [address] [place], [address] Urea nitrogen [Mass/Vol] 60 mg/dL High 4-19 [facility] Comment on above: Performed By: #### L 501.2300, L501.5200, L100.0100, L500.4050 ####[facility] [address] [place], [address] Magnesiumon 09-28-2024 Magnesium [Mass/Vol] 2.0 mg/dL Normal 1.5-2.2 [facility] Comment on above: Performed By: #### L 501.2300, L501.5200, L100.0100, L500.4050 ####[facility] [address] [place], [address] Magnesium measurement (mass/ volume)Ordered By: Raymond Contreras on 09-28-2024 Magnesium (Unsp spec) [Mass/Vol] 2.0 mg/dL 1.5-2.2 [facility] No Panel InformationOrdered By: Raymond Contreras on 09-28-2024 23 U/L <32 [facility] Phosphoruson 09-28-2024 Phosphate [Mass/Vol] 3.4 mg/dL Normal 2.7-4.5 [facility] Comment on above: Performed By: #### L 501.2300, L501.5200, L100.0100, L500.4050 ####[facility] [address] [place], [address] Serum globulin measurementOr dered By: Raymond Contreras on 09-28-2024 Globulin (S) [Mass/Vol] 4.2 g/dL 2.2-4.2 [facility] Serum or plasma alanine garcia otransferase (ALT) measurementOrdered By: Raymond Contreras on 09-28-2024 ALT [Catalytic activity/Vol] 15 U/L <35 [facility] Serum or plasma albumin addie urement (mass/volume)Ordered By: Raymond Contreras on 09-28-2024 Albumin [Mass/Vol] 3.3 g/dL Low 3.4-4.8 [facility] Serum or plasma albumin/glob ulin mass ratioOrdered By: Raymond Contreras on 09-28-2024 Albumin/Globulin [Mass ratio] 0.8 {ratio} Low 0.9-2.4 [facility] Serum or plasma alkaline jabier sphatase measurementOrdered By: Raymond Contreras on 09-28-2024 ALP [Catalytic activity/Vol] 101 U/L 35-104 [facility] Total proteinOrdered By: Mt Contreras on 09-28-2024 Protein [Mass/Vol] 7.5 g/dL 5.9-8.4 [facility] Urine creatinine measurement (mass/volume)Ordered By: Diana Crowell on 09-28-2024 Creatinine (U) [Mass/Vol] 52.90 mg/dL NO RANGE EST. [facility] Basic Metabolic Profile (BMP )on 09-27-2024 Anion gap [Moles/Vol] 15 mmol/L Normal 5-15 [facility] Comment on above: Performed By: #### L 500.2500, L501.5200 ####[facility] [address] [place], [address] BUN/CRE 18.6 RATIO Normal 10-20 [facility] Comment on above: Performed By: #### L 500.2500, L501.5200 ####[facility] [address] [place], [address] Calcium [Mass/Vol] 9.3 mg/dL Normal 7.6-11.0 [facility] Comment on above: Performed By: #### L 500.2500, L501.5200 ####[facility] [address] [place], [address] Chloride [Moles/Vol] 96 mmol/L Normal 96-108 [facility] Comment on above: Performed By: #### L 500.2500, L501.5200 ####[facility] [address] [place], [address] CO2 [Moles/Vol] 22.7 mmol/L Normal 22.0-29.0 [facility] Comment on above: Performed By: #### L 500.2500, L501.5200 ####[facility] [address] [place], [address] Creatinine [Mass/Vol] 3.32 mg/dL High 0.70-1.20 [facility] Comment on above: Performed By: #### L 500.2500, L501.5200 ####[facility] [address] [place], [address] ECRCL 21.20 ml/min Low 50-250 [facility] Comment on above: Performed By: #### L 500.2500, L501.5200 ####[facility] [address] [place], [address] GFR/1.73 sq M.predicted among non-blacks MDRD (S/P/Bld) [Vol rate/Area] 15 mL/min/{1.73_m2} Low >60 [facility] Comment on above: Result Comment: mL/m in/1.73m2 CKD-EPI Creatinine Equation (2020) Performed By: #### L 500.2500, L501.5200 ####[facility] [address] [place], [address] Glucose [Mass/Vol] 119 mg/dL High 70-99 [facility] Comment on above: Performed By: #### L 500.2500, L501.5200 ####[facility] [address] [place], [address] Potassium [Moles/Vol] 3.3 mmol/L Normal 3.3-5.1 [facility] Comment on above: Performed By: #### L 500.2500, L501.5200 ####[facility] [address] [place], [address] Sodium [Moles/Vol] 134 mmol/L Normal 133-145 [facility] Comment on above: Performed By: #### L 500.2500, L501.5200 ####[facility] [address] [place], [address] Urea nitrogen [Mass/Vol] 62 mg/dL High 4-19 [facility] Comment on above: Performed By: #### L 500.2500, L501.5200 ####[facility] [address] [place], [address] Anion gap [Moles/Vol] 18 mmol/L High 5-15 [facility] Comment on above: Performed By: #### L 500.2500, L100.0100 ####[facility] [address] [place], [address] BUN/CRE 17.5 RATIO Normal 10-20 [facility] Comment on above: Performed By: #### L 500.2500, L100.0100 ####[facility] [address] [place], [address] Calcium [Mass/Vol] 9.3 mg/dL Normal 7.6-11.0 [facility] Comment on above: Performed By: #### L 500.2500, L100.0100 ####[facility] [address] [place], [address] Chloride [Moles/Vol] 99 mmol/L Normal 96-108 [facility] Comment on above: Performed By: #### L 500.2500, L100.0100 ####[facility] [address] [place], [address] CO2 [Moles/Vol] 21.1 mmol/L Low 22.0-29.0 [facility] Comment on above: Performed By: #### L 500.2500, L100.0100 ####[facility] [address] [place], [address] Creatinine [Mass/Vol] 3.46 mg/dL High 0.70-1.20 [facility] Comment on above: Performed By: #### L 500.2500, L100.0100 ####[facility] [address] [place], [address] ECRCL 20.35 ml/min Normal [facility] Comment on above: Performed By: #### L 500.2500, L100.0100 ####[facility] [address] [place], [address] GFR/1.73 sq M.predicted among non-blacks MDRD (S/P/Bld) [Vol rate/Area] 14 mL/min/{1.73_m2} Low >60 [facility] Comment on above: Result Comment: mL/m in/1.73m2 CKD-EPI Creatinine Equation (2020) Performed By: #### L 500.2500, L100.0100 ####[facility] [address] [place], [address] Glucose [Mass/Vol] 109 mg/dL High 70-99 [facility] Comment on above: Performed By: #### L 500.2500, L100.0100 ####[facility] [address] [place], [address] Potassium [Moles/Vol] 3.0 mmol/L Low 3.3-5.1 [facility] Comment on above: Performed By: #### L 500.2500, L100.0100 ####[facility] [address] [place], [address] Sodium [Moles/Vol] 137 mmol/L Normal 133-145 [facility] Comment on above: Performed By: #### L 500.2500, L100.0100 ####[facility] [address] [place], [address] Urea nitrogen [Mass/Vol] 61 mg/dL High 4-19 [facility] Comment on above: Performed By: #### L 500.2500, L100.0100 ####[facility] [address] [place], [address] CBC W/Diff, Automatedon 03-0 -2024 Absolute Lymph 0.74 X10 3/uL Low 0.83-4.51 [facility] Comment on above: Performed By: #### L 500.2500, L100.0100 ####[facility] [address] [place], [address] Absolute Neut 8.1 X10 3/uL High 2.0-7.7 [facility] Comment on above: Performed By: #### L 500.2500, L100.0100 ####[facility] [address] [place], [address] Basophils/100 WBC (Bld) 0.2 % Normal 0-1 [facility] Comment on above: Performed By: #### L 500.2500, L100.0100 ####[facility] [address] [place], [address] Eosinophils/100 WBC (Bld) 0.5 % Normal 0-5 [facility] Comment on above: Performed By: #### L 500.2500, L100.0100 ####[facility] [address] [place], [address] Erythrocyte distribution width (RBC) [Ratio] 14.0 % Normal 11.6-14.6 [facility] Comment on above: Performed By: #### L 500.2500, L100.0100 ####[facility] [address] [place], [address] Hematocrit (Bld) [Volume fraction] 31.8 % Low 37-47 [facility] Comment on above: Performed By: #### L 500.2500, L100.0100 ####[facility] [address] [place], [address] Hemoglobin (Bld) [Mass/Vol] 10.6 g/dL Low 12.0-15.0 [facility] Comment on above: Performed By: #### L 500.2500, L100.0100 ####[facility] [address] [place], [address] IG% 0.800 Normal 0.0-0.9 [facility] Comment on above: Result Comment: IG% - Immature Granulocytes (promyelocytes, myelocytes andmetamyelocytes) > 1% indicates that a LEFT SHIFT is Present. Performed By: #### L 500.2500, L100.0100 ####[facility] [address] [place], [address] Lymphocytes/100 WBC (Bld) 7.4 % Low 19-41 [facility] Comment on above: Performed By: #### L 500.2500, L100.0100 ####[facility] [address] [place], [address] MCH (RBC) [Entitic mass] 31.8 pg Normal 27.0-32.0 [facility] Comment on above: Performed By: #### L 500.2500, L100.0100 ####[facility] [address] [place], [address] MCHC (RBC) [Mass/Vol] 33.3 g/dL Normal 32-36 [facility] Comment on above: Performed By: #### L 500.2500, L100.0100 ####[facility] [address] [place], [address] MCV (RBC) [Entitic vol] 95.5 fL Normal 81-99 [facility] Comment on above: Performed By: #### L 500.2500, L100.0100 ####[facility] [address] [place], [address] Monocytes/100 WBC (Bld) 10.4 % High 0-10 [facility] Comment on above: Performed By: #### L 500.2500, L100.0100 ####[facility] [address] [place], [address] Neutrophils/100 WBC (Bld) 80.7 % High 47-70 [facility] Comment on above: Performed By: #### L 500.2500, L100.0100 ####[facility] [address] [place], [address] Nucleated RBC (Bld) [#/Vol] 0 10*3/uL Normal 0-5 [facility] Comment on above: Performed By: #### L 500.2500, L100.0100 ####[facility] [address] [place], [address] Platelet mean volume (Bld) [Entitic vol] 12.8 fL High 6.2-12.0 [facility] Comment on above: Performed By: #### L 500.2500, L100.0100 ####[facility] [address] [place], [address] Platelets (Bld) [#/Vol] 188 10*3/uL Normal 150-450 [facility] Comment on above: Performed By: #### L 500.2500, L100.0100 ####[facility] [address] [place], [address] RBC (Bld) [#/Vol] 3.33 10*6/uL Low 4.2-5.4 [facility] Comment on above: Performed By: #### L 500.2500, L100.0100 ####[facility] [address] [place], [address] RDW SD 49.1 fl High 35.1-43.9 [facility] Comment on above: Performed By: #### L 500.2500, L100.0100 ####[facility] [address] [place], [address] WBC (Bld) [#/Vol] 10.1 10*3/uL Normal 4.4-11.0 [facility] Comment on above: Performed By: #### L 500.2500, L100.0100 ####[facility] [address] [place], [address] M100.678on 09-27-2024 M100.678 SARS-CoV-2 (COVID 19 ) Negative INFLUENZA A Negative INFLUENZA B Negative RSV PCR Negative Normal [facility] Comment on above: Performed By: #### M 100.678 ####[facility] [address] [place], [address] Magnesiumon 09-27-2024 Magnesium [Mass/Vol] 1.4 mg/dL Low 1.5-2.2 [facility] Comment on above: Performed By: #### L 500.2500, L501.5200 ####[facility] [address] [place], [address] 12 Lead EKGon 09-26-2024 12 Lead EKG Normal [facility] Amorphous sediment detection in urine sediment by light microscopyOrdered By: Victor Manuel Winkler on 09-26-2024 Amorphous sediment LM Ql (Urine sed) 2+ URATE [facility] Basic Metabolic Profile (BMP )on 09-26-2024 Anion gap [Moles/Vol] 17 mmol/L High 5-15 [facility] Comment on above: Performed By: #### L 500.2500, L500.3400, L100.0100, L503.7505 ####[facility] [address] [place], [address] BUN/CRE 15.5 RATIO Normal 10-20 [facility] Comment on above: Performed By: #### L 500.2500, L500.3400, L100.0100, L503.7505 ####[facility] [address] [place], [address] Calcium [Mass/Vol] 9.8 mg/dL Normal 7.6-11.0 [facility] Comment on above: Performed By: #### L 500.2500, L500.3400, L100.0100, L503.7505 ####[facility] [address] [place], [address] Chloride [Moles/Vol] 95 mmol/L Low 96-108 [facility] Comment on above: Performed By: #### L 500.2500, L500.3400, L100.0100, L503.7505 ####[facility] [address] [place], [address] CO2 [Moles/Vol] 21.7 mmol/L Low 22.0-29.0 [facility] Comment on above: Performed By: #### L 500.2500, L500.3400, L100.0100, L503.7505 ####[facility] [address] [place], [address] Creatinine [Mass/Vol] 3.89 mg/dL High 0.70-1.20 [facility] Comment on above: Performed By: #### L 500.2500, L500.3400, L100.0100, L503.7505 ####[facility] [address] [place], [address] ECRCL 17.98 ml/min Normal [facility] Comment on above: Performed By: #### L 500.2500, L500.3400, L100.0100, L503.7505 ####[facility] [address] [place], [address] GFR/1.73 sq M.predicted among non-blacks MDRD (S/P/Bld) [Vol rate/Area] 12 mL/min/{1.73_m2} Low >60 [facility] Comment on above: Result Comment: mL/m in/1.73m2 CKD-EPI Creatinine Equation (2020) Performed By: #### L 500.2500, L500.3400, L100.0100, L503.7505 ####[facility] [address] [place], [address] Glucose [Mass/Vol] 144 mg/dL High 70-99 [facility] Comment on above: Performed By: #### L 500.2500, L500.3400, L100.0100, L503.7505 ####[facility] [address] [place], [address] Potassium [Moles/Vol] 3.4 mmol/L Normal 3.3-5.1 [facility] Comment on above: Performed By: #### L 500.2500, L500.3400, L100.0100, L503.7505 ####[facility] [address] [place], [address] Sodium [Moles/Vol] 134 mmol/L Normal 133-145 [facility] Comment on above: Performed By: #### L 500.2500, L500.3400, L100.0100, L503.7505 ####[facility] [address] [place], [address] Urea nitrogen [Mass/Vol] 60 mg/dL High 4-19 [facility] Comment on above: Performed By: #### L 500.2500, L500.3400, L100.0100, L503.7505 ####[facility] [address] [place], [address] Bilirubin Test strip Ql (U)O rdered By: Victor Manuel Winkler on 09-26-2024 Bilirubin Ql (U) 1 mg/dL High Negative [facility] Bilirubin directOrdered By: Victor Manuel Winkler on 09-26-2024 Bilirubin.direct [Mass/Vol] 0.38 mg/dL High 0.00-0.30 [facility] CBC W/Diff, Automatedon 08-31 Absolute Lymph 0.69 X10 3/uL Low 0.83-4.51 [facility] Comment on above: Performed By: #### L 500.2500, L500.3400, L100.0100, L503.7505 ####[facility] [address] [place], [address] Absolute Neut 13.0 X10 3/uL High 2.0-7.7 [facility] Comment on above: Performed By: #### L 500.2500, L500.3400, L100.0100, L503.7505 ####[facility] [address] [place], [address] Basophils/100 WBC (Bld) 0.2 % Normal 0-1 [facility] Comment on above: Performed By: #### L 500.2500, L500.3400, L100.0100, L503.7505 ####[facility] [address] [place], [address] Eosinophils/100 WBC (Bld) 0.1 % Normal 0-5 [facility] Comment on above: Performed By: #### L 500.2500, L500.3400, L100.0100, L503.7505 ####[facility] [address] [place], [address] Erythrocyte distribution width (RBC) [Ratio] 13.7 % Normal 11.6-14.6 [facility] Comment on above: Performed By: #### L 500.2500, L500.3400, L100.0100, L503.7505 ####[facility] [address] [place], [address] Hematocrit (Bld) [Volume fraction] 34.8 % Low 37-47 [facility] Comment on above: Performed By: #### L 500.2500, L500.3400, L100.0100, L503.7505 ####[facility] [address] [place], [address] Hemoglobin (Bld) [Mass/Vol] 11.6 g/dL Low 12.0-15.0 [facility] Comment on above: Performed By: #### L 500.2500, L500.3400, L100.0100, L503.7505 ####[facility] [address] [place], [address] IG% 0.600 Normal 0.0-0.9 [facility] Comment on above: Result Comment: IG% - Immature Granulocytes (promyelocytes, myelocytes andmetamyelocytes) > 1% indicates that a LEFT SHIFT is Present. Performed By: #### L 500.2500, L500.3400, L100.0100, L503.7505 ####[facility] [address] [place], [address] Lymphocytes/100 WBC (Bld) 4.5 % Low 19-41 [facility] Comment on above: Performed By: #### L 500.2500, L500.3400, L100.0100, L503.7505 ####[facility] [address] [place], [address] MCH (RBC) [Entitic mass] 32.0 pg Normal 27.0-32.0 [facility] Comment on above: Performed By: #### L 500.2500, L500.3400, L100.0100, L503.7505 ####[facility] [address] [place], [address] MCHC (RBC) [Mass/Vol] 33.3 g/dL Normal 32-36 [facility] Comment on above: Performed By: #### L 500.2500, L500.3400, L100.0100, L503.7505 ####[facility] [address] [place], [address] MCV (RBC) [Entitic vol] 95.9 fL Normal 81-99 [facility] Comment on above: Performed By: #### L 500.2500, L500.3400, L100.0100, L503.7505 ####[facility] [address] [place], [address] Monocytes/100 WBC (Bld) 9.4 % Normal 0-10 [facility] Comment on above: Performed By: #### L 500.2500, L500.3400, L100.0100, L503.7505 ####[facility] [address] [place], [address] Neutrophils/100 WBC (Bld) 85.2 % High 47-70 [facility] Comment on above: Performed By: #### L 500.2500, L500.3400, L100.0100, L503.7505 ####[facility] [address] [place], [address] Nucleated RBC (Bld) [#/Vol] 0 10*3/uL Normal 0-5 [facility] Comment on above: Performed By: #### L 500.2500, L500.3400, L100.0100, L503.7505 ####[facility] [address] [place], [address] Platelet mean volume (Bld) [Entitic vol] 12.4 fL High 6.2-12.0 [facility] Comment on above: Performed By: #### L 500.2500, L500.3400, L100.0100, L503.7505 ####[facility] [address] [place], [address] Platelets (Bld) [#/Vol] 213 10*3/uL Normal 150-450 [facility] Comment on above: Performed By: #### L 500.2500, L500.3400, L100.0100, L503.7505 ####[facility] [address] [place], [address] RBC (Bld) [#/Vol] 3.63 10*6/uL Low 4.2-5.4 [facility] Comment on above: Performed By: #### L 500.2500, L500.3400, L100.0100, L503.7505 ####[facility] [address] [place], [address] RDW SD 49.0 fl High 35.1-43.9 [facility] Comment on above: Performed By: #### L 500.2500, L500.3400, L100.0100, L503.7505 ####[facility] [address] [place], [address] WBC (Bld) [#/Vol] 15.2 10*3/uL High 4.4-11.0 [facility] Comment on above: Performed By: #### L 500.2500, L500.3400, L100.0100, L503.7505 ####[facility] [address] [place], [address] Chest 1 View (Portable)on Chest 1 View (Portable) Normal [facility] Echo Completeon 09-26-2024 Echo Complete Normal [facility] Emergency Department Summary on 09-26-2024 Emergency Department Summary Normal [facility] H AND P Exam - Hospitaliston 09-26-2024 H&P Exam - Hospitalist Normal [facility] Hyaline casts LM.LPF (Urine sed) [#/Area]Ordered By: Victor Manuel Winkler on 09-26-2024 Hyaline casts (Urine sed) [#/Area] 0 /[LPF] 0-5 [facility] Influenza virus A and B and SARS-CoV-2 (COVID-19) and Respiratory syncytial virus RNAOrdered By: Chemo Ramirez on 09-26-2024 SARS-CoV-2 (COVID-19) RNA MARLYN+probe Ql (Unsp spec) [facility] Ketones Test strip Ql (U)Ord ered By: Victor Manuel Winkler on 09-26-2024 Ketones Ql (U) Negative Negative [facility] Kidney and Bladderon 025 Kidney and Bladder Normal [facility] L503.7505on 09-26-2024 Natriuretic peptide B (Bld) [Mass/Vol] 1143 pg/mL High <=900 [facility] Comment on above: Result Comment: Hear t Failure Unlikely: < 300 pg/mLHeart Failure Likely< 50 Years: > 450 pg/mL50-75 Years: > 900 pg/mL>75 Years: > 1800 pg/mL Performed By: #### L 500.2500, L500.3400, L100.0100, L503.7505 ####[facility] [address] [place], [address] Liver Profileon 09-26-2024 Albumin [Mass/Vol] 3.8 g/dL Normal 3.4-4.8 [facility] Comment on above: Performed By: #### L 500.2500, L500.3400, L100.0100, L503.7505 ####[facility] [address] [place], [address] ALK PHOS 99 U/L Normal 35-104 [facility] Comment on above: Performed By: #### L 500.2500, L500.3400, L100.0100, L503.7505 ####[facility] [address] [place], [address] ALT [Catalytic activity/Vol] 18 U/L Normal <=34 [facility] Comment on above: Performed By: #### L 500.2500, L500.3400, L100.0100, L503.7505 ####[facility] [address] [place], [address] AST [Catalytic activity/Vol] 28 U/L Normal <=31 [facility] Comment on above: Performed By: #### L 500.2500, L500.3400, L100.0100, L503.7505 ####[facility] [address] [place], [address] Bilirubin [Mass/Vol] 0.79 mg/dL Normal 0.00-1.30 [facility] Comment on above: Performed By: #### L 500.2500, L500.3400, L100.0100, L503.7505 ####[facility] [address] [place], [address] Bilirubin.direct [Mass/Vol] 0.38 mg/dL High 0.00-0.30 [facility] Comment on above: Performed By: #### L 500.2500, L500.3400, L100.0100, L503.7505 ####[facility] [address] [place], [address] Globulin (S) [Mass/Vol] 4.4 g/dL High 2.2-4.2 [facility] Comment on above: Performed By: #### L 500.2500, L500.3400, L100.0100, L503.7505 ####[facility] [address] [place], [address] T PROT 8.2 g/dL Normal 5.9-8.4 [facility] Comment on above: Performed By: #### L 500.2500, L500.3400, L100.0100, L503.7505 ####[facility] [address] [place], [address] Mucus LM Ql (Urine sed)Order ed By: Victor Manuel Winkler on 09-26-2024 Mucus Ql (Urine sed) 0 SEEN /hpf [facility] Nitrite Test strip Ql (U)Ord ered By: Victor Manuel Winkler on 09-26-2024 Nitrite Ql (U) Negative Negative [facility] No Panel InformationOrdered By: Victor Manuel Winkler on 09-26-2024 1143 pg/mL High <900 [facility] Protein Test strip Ql (U)Ord ered By: Victor Manuel Winkler on 09-26-2024 Protein Ql (U) 100 mg/dl High Negative [facility] Squamous epithelial cells de tection in urine sediment by light microscopyOrdered By: Victor Manuel Winkler on 09-26-2024 Epithelial cells.squamous LM Ql (Urine sed) 0-5 SEEN /hpf 5-10 [facility] Urinalysis, Completeon 09-26 CAST,FINE GRAN 0-5 SEEN Normal 0-5 [facility] Comment on above: Order Comment: FRANDY CTOR TO SPECIFY Performed By: #### L 400.0001 ####[facility] [address] [facility] [address] CAST,HYALINE 0-5 SEEN Normal 0-5 [facility] Comment on above: Order Comment: FRANDY CTOR TO SPECIFY Performed By: #### L 400.0001 ####[facility] [address] [place], [address] AMORPHOUS 2+ URATE Normal [facility] Comment on above: Order Comment: FRANDY CTOR TO SPECIFY Performed By: #### L 400.0001 ####[facility] [address] [place], [address] EPI,SQUAMOUS 0-5 SEEN Normal 5-10 [facility] Comment on above: Order Comment: FRANDY CTOR TO SPECIFY Performed By: #### L 400.0001 ####[facility] [address] [place], [address] RBC 0-5 SEEN Normal 0-5 [facility] Comment on above: Order Comment: FRANDY CTOR TO SPECIFY Performed By: #### L 400.0001 ####[facility] [address] [place], [address] WBC 0-5 SEEN Normal 0-5 [facility] Comment on above: Order Comment: FRANDY CTOR TO SPECIFY Performed By: #### L 400.0001 ####[facility] [address] [place], [address] BACTERIA 0 SEEN Normal None Seen [facility] Comment on above: Order Comment: FRANDY CTOR TO SPECIFY Performed By: #### L 400.0001 ####[facility] [address] [place], [place], [id number] Mucus Ql (Urine sed) 0 SEEN Normal [facility] Comment on above: Order Comment: FRANDY CTOR TO SPECIFY Performed By: #### L 400.0001 ####[facility] [address] [place], [place], [id number] Urine clarityOrdered By: Robert Winkler on 09-26-2024 Clarity (U) Sl. Cloudy Clear [facility] Urine color determinationOrd ered By: Victor Manuel Winkler on 09-26-2024 Color (U) Yellow Yellow [facility] Urine glucose detectionOrder ed By: Victor Manuel Winkler on 09-26-2024 Glucose Ql (U) Normal mg/dl Normal [facility] Urine leukocyte esterase det ection by dipstickOrdered By: Victor Manuel Winkler on 09-26-2024 Leukocyte esterase Test strip Ql (U) 25 /ul High Negative [facility] Urine pHOrdered By: Victor Manuel santa on 09-26-2024 pH (U) 5.0 [pH] 5.0 - 8.0 [facility] Urine sediment bacteria coun t by microscopy (number/high power field)Ordered By: Victor Manuel Winkler on 09-26-2024 Bacteria LM.HPF (Urine sed) [#/Area] 0 /[HPF] None Seen [facility] Urine sediment fine granular cast count by microscopy (number/low power field)Ordered By: Victor Manuel Winkler on 09-26-2024 Fine Granular Casts LM.LPF (Urine sed) [#/Area] 0-5 SEEN /lpf 0-5 [facility] Urine specific gravity measu rementOrdered By: Victor Manuel Winkler on 09-26-2024 Specific gravity (U) [Rel density] 1.025 1.002-1.03 0 [facility] Urine urobilinogen measureme ntOrdered By: Victor Manuel Winkler on 09-26-2024 Urobilinogen Ql (U) 1 mg/dl High Normal [facility] White blood cell countOrdere d By: Victor Manuel Winkler on 09-26-2024 White blood cell count 0-5 SEEN /hpf 0-5 [facility] Cancer Antigen 125on 025 CA 125 31.0 U/mL Normal 0.0-38.1 [facility] Comment on above: Result Comment: [facility] [employer] Electrochemiluminescence Immunoassay(ECLIA)Values obtained with different assay methods or kits cannotbe used interchangeably. Results cannot be interpreted asabsolute evidence of the presence or absence of malignantdisease.Performed at: [address] [id number] Director: Joe Olivier PhD, Phone: [phone] Performed By: #### L 100.0100, L500.4050, L3100.5000, L3130.0010, L3100.3425, L504.2610 ####[facility] [address] [place], [place], [phone] KOFI + Protein Elect, Serumon 09-15-2024 Albumin [Mass/Vol] 3.3 g/dL Normal 2.9-4.4 [facility] Comment on above: Order Comment: N Performed By: #### L 100.0100, L500.4050, L3100.5000, L3130.0010, L3100.3425, L504.2610 ####[facility] [address] [place], [place], [phone] Albumin/Globulin [Mass ratio] 0.9 {ratio} Normal 0.7-1.7 [facility] Comment on above: Order Comment: N Performed By: #### L 100.0100, L500.4050, L3100.5000, L3130.0010, L3100.3425, L504.2610 ####[facility] [address] [place], [place], [phone] XWYTK-4-TROC 0.4 g/dL Normal 0.0-0.4 [facility] Comment on above: Order Comment: N Performed By: #### L 100.0100, L500.4050, L3100.5000, L3130.0010, L3100.3425, L504.2610 ####[facility] [address] [place], [address] BQPCT-5-EXRZ 0.9 g/dL Normal 0.4-1.0 [facility] Comment on above: Order Comment: N Performed By: #### L 100.0100, L500.4050, L3100.5000, L3130.0010, L3100.3425, L504.2610 ####[facility] [address] [place], [address] BETA GLOBULIN 1.2 g/dL Normal 0.7-1.3 [facility] Comment on above: Order Comment: N Performed By: #### L 100.0100, L500.4050, L3100.5000, L3130.0010, L3100.3425, L504.2610 ####[facility] [address] [place], [address] GAMMA GLOBULIN 1.4 g/dL Normal 0.4-1.8 [facility] Comment on above: Order Comment: N Performed By: #### L 100.0100, L500.4050, L3100.5000, L3130.0010, L3100.3425, L504.2610 ####[facility] [address] [place], [address] Globulin (S) [Mass/Vol] 4.0 g/dL Abnormal 2.2-3.9 [facility] Comment on above: Order Comment: N Performed By: #### L 100.0100, L500.4050, L3100.5000, L3130.0010, L3100.3425, L504.2610 ####[facility] [address] [place], [address] KOFI RESULT,S Comment Normal . [facility] Comment on above: Order Comment: N Result Comment: No m onoclonality detected. Performed By: #### L 100.0100, L500.4050, L3100.5000, L3130.0010, L3100.3425, L504.2610 ####[facility] [address] [place], [address] IMMUNOGLOB A QN 327 mg/dL Normal 87-352 [facility] Comment on above: Order Comment: N Performed By: #### L 100.0100, L500.4050, L3100.5000, L3130.0010, L3100.3425, L504.2610 ####[facility] [address] [place], [address] IMMUNOGLOB G QN 1492 mg/dL Normal 586-1602 [facility] Comment on above: Order Comment: N Performed By: #### L 100.0100, L500.4050, L3100.5000, L3130.0010, L3100.3425, L504.2610 ####[facility] [address] [place], [address] IMMUNOGLOB M QN 82 mg/dL Normal 26-217 [facility] Comment on above: Order Comment: N Performed By: #### L 100.0100, L500.4050, L3100.5000, L3130.0010, L3100.3425, L504.2610 ####[facility] [address] [place], [address] M-Wilfredo Not Observed Normal Not Observed [facility] Comment on above: Order Comment: N Performed By: #### L 100.0100, L500.4050, L3100.5000, L3130.0010, L3100.3425, L504.2610 ####[facility] [address] [place], [address] NOTE: Comment Normal . [facility] Comment on above: Order Comment: N Result Comment: Prot ein electrophoresis scan will follow via computer,mail, or garden labourer delivery. Performed By: #### L 100.0100, L500.4050, L3100.5000, L3130.0010, L3100.3425, L504.2610 ####[facility] [address] [place], [address] Protein [Mass/Vol] 7.3 g/dL Normal 6.0-8.5 [facility] Comment on above: Order Comment: N Performed By: #### L 100.0100, L500.4050, L3100.5000, L3130.0010, L3100.3425, L504.2610 ####[facility] [address] [place], [address] [place] Lambda Light Chainson 09-15-2024 FR KAPPA LT CHN 107.4 mg/L Abnormal 3.3-19.4 [facility] Comment on above: Performed By: #### L 100.0100, L500.4050, L3100.5000, L3130.0010, L3100.3425, L504.2610 ####[facility] [address] [place], [address] FR LAMBDA LT CH 46.4 mg/L Abnormal 5.7-26.3 [facility] Comment on above: Performed By: #### L 100.0100, L500.4050, L3100.5000, L3130.0010, L3100.3425, L504.2610 ####[facility] [address] [place], [address] KAPPA/LAMBDA % 2.31 Abnormal 0.26-1.65 [facility] Comment on above: Performed By: #### L 100.0100, L500.4050, L3100.5000, L3130.0010, L3100.3425, L504.2610 ####[facility] [address] [place], [address] Albumin Elph [Mass/Vol]Order ed By: David Corral on 09-10-2024 Albumin [Mass/Vol] 3.3 g/dL 2.9-4.4 [facility] CBC W/Diff, Automatedon 08-30 Absolute Lymph 1.07 X10 3/uL Normal 0.83-4.51 [facility] Comment on above: Performed By: #### L 100.0100, L500.4050, L3100.5000, L3130.0010, L3100.3425, L504.2610 ####[facility] [address] [place], [address] Absolute Neut 7.2 X10 3/uL Normal 2.0-7.7 [facility] Comment on above: Performed By: #### L 100.0100, L500.4050, L3100.5000, L3130.0010, L3100.3425, L504.2610 ####[facility] [address] [place], [address] Basophils/100 WBC (Bld) 0.3 % Normal 0-1 [facility] Comment on above: Performed By: #### L 100.0100, L500.4050, L3100.5000, L3130.0010, L3100.3425, L504.2610 ####[facility] [address] [place], [address] Eosinophils/100 WBC (Bld) 2.0 % Normal 0-5 [facility] Comment on above: Performed By: #### L 100.0100, L500.4050, L3100.5000, L3130.0010, L3100.3425, L504.2610 ####[facility] [address] [place], [address] Erythrocyte distribution width (RBC) [Ratio] 13.5 % Normal 11.6-14.6 [facility] Comment on above: Performed By: #### L 100.0100, L500.4050, L3100.5000, L3130.0010, L3100.3425, L504.2610 ####[facility] [address] [place], [address] Hematocrit (Bld) [Volume fraction] 36.5 % Low 37-47 [facility] Comment on above: Performed By: #### L 100.0100, L500.4050, L3100.5000, L3130.0010, L3100.3425, L504.2610 ####[facility] [address] [place], [address] Hemoglobin (Bld) [Mass/Vol] 11.5 g/dL Low 12.0-15.0 [facility] Comment on above: Performed By: #### L 100.0100, L500.4050, L3100.5000, L3130.0010, L3100.3425, L504.2610 ####[facility] [address] [place], [address] IG% 0.400 Normal 0.0-0.9 [facility] Comment on above: Result Comment: IG% - Immature Granulocytes (promyelocytes, myelocytes andmetamyelocytes) > 1% indicates that a LEFT SHIFT is Present. Performed By: #### L 100.0100, L500.4050, L3100.5000, L3130.0010, L3100.3425, L504.2610 ####[facility] [address] [place], [address] Lymphocytes/100 WBC (Bld) 11.7 % Low 19-41 [facility] Comment on above: Performed By: #### L 100.0100, L500.4050, L3100.5000, L3130.0010, L3100.3425, L504.2610 ####[facility] [address] [place], [address] MCH (RBC) [Entitic mass] 31.3 pg Normal 27.0-32.0 [facility] Comment on above: Performed By: #### L 100.0100, L500.4050, L3100.5000, L3130.0010, L3100.3425, L504.2610 ####[facility] [address] [place], [address] MCHC (RBC) [Mass/Vol] 31.5 g/dL Low 32-36 [facility] Comment on above: Performed By: #### L 100.0100, L500.4050, L3100.5000, L3130.0010, L3100.3425, L504.2610 ####[facility] [address] [place], [address] MCV (RBC) [Entitic vol] 99.2 fL High 81-99 [facility] Comment on above: Performed By: #### L 100.0100, L500.4050, L3100.5000, L3130.0010, L3100.3425, L504.2610 ####[facility] [address] [place], [address] Monocytes/100 WBC (Bld) 6.7 % Normal 0-10 [facility] Comment on above: Performed By: #### L 100.0100, L500.4050, L3100.5000, L3130.0010, L3100.3425, L504.2610 ####[facility] [address] [place], [address] Neutrophils/100 WBC (Bld) 78.9 % High 47-70 [facility] Comment on above: Performed By: #### L 100.0100, L500.4050, L3100.5000, L3130.0010, L3100.3425, L504.2610 ####[facility] [address] [place], [address] Nucleated RBC (Bld) [#/Vol] 0 10*3/uL Normal 0-5 [facility] Comment on above: Performed By: #### L 100.0100, L500.4050, L3100.5000, L3130.0010, L3100.3425, L504.2610 ####[facility] [address] [place], [address] Platelet mean volume (Bld) [Entitic vol] 12.0 fL Normal 6.2-12.0 [facility] Comment on above: Performed By: #### L 100.0100, L500.4050, L3100.5000, L3130.0010, L3100.3425, L504.2610 ####[facility] [address] [place], [address] Platelets (Bld) [#/Vol] 205 10*3/uL Normal 150-450 [facility] Comment on above: Performed By: #### L 100.0100, L500.4050, L3100.5000, L3130.0010, L3100.3425, L504.2610 ####[facility] [address] [place], [address] RBC (Bld) [#/Vol] 3.68 10*6/uL Low 4.2-5.4 [facility] Comment on above: Performed By: #### L 100.0100, L500.4050, L3100.5000, L3130.0010, L3100.3425, L504.2610 ####[facility] [address] [place], [address] RDW SD 50.1 fl High 35.1-43.9 [facility] Comment on above: Performed By: #### L 100.0100, L500.4050, L3100.5000, L3130.0010, L3100.3425, L504.2610 ####[facility] [address] [place], [address] WBC (Bld) [#/Vol] 9.1 10*3/uL Normal 4.4-11.0 [facility] Comment on above: Performed By: #### L 100.0100, L500.4050, L3100.5000, L3130.0010, L3100.3425, L504.2610 ####[facility] [address] [place], [address] Comprehensive Metabolic Prof ilon 09-10-2024 Albumin [Mass/Vol] 3.3 g/dL Normal 3.2-5.0 [facility] Comment on above: Performed By: #### L 100.0100, L500.4050, L3100.5000, L3130.0010, L3100.3425, L504.2610 ####[facility] [address] [place], [address] Albumin/Globulin [Mass ratio] 0.7 {ratio} Low 0.9-2.4 [facility] Comment on above: Performed By: #### L 100.0100, L500.4050, L3100.5000, L3130.0010, L3100.3425, L504.2610 ####[facility] [address] [place], [address] ALK P 100 U/L Normal 45-117 [facility] Comment on above: Performed By: #### L 100.0100, L500.4050, L3100.5000, L3130.0010, L3100.3425, L504.2610 ####[facility] [address] [place], [address] ALT [Catalytic activity/Vol] 16 U/L Normal 13-56 [facility] Comment on above: Performed By: #### L 100.0100, L500.4050, L3100.5000, L3130.0010, L3100.3425, L504.2610 ####[facility] [address] [place], [address] AST [Catalytic activity/Vol] 14 U/L Low 15-37 [facility] Comment on above: Performed By: #### L 100.0100, L500.4050, L3100.5000, L3130.0010, L3100.3425, L504.2610 ####[facility] [address] [place], [address] Bilirubin [Mass/Vol] 0.80 mg/dL Normal 0.20-1.00 [facility] Comment on above: Result Comment: For patients on eltrombopag therapy, use of Dimension Marcella TBIL is not recommended. Performed By: #### L 100.0100, L500.4050, L3100.5000, L3130.0010, L3100.3425, L504.2610 ####[facility] [address] [place], [address] BUN/CRE 13.5 RATIO Normal 10-20 [facility] Comment on above: Performed By: #### L 100.0100, L500.4050, L3100.5000, L3130.0010, L3100.3425, L504.2610 ####[facility] [address] [place], [address] CA,Total 9.9 mg/dL Normal 8.5-10.1 [facility] Comment on above: Performed By: #### L 100.0100, L500.4050, L3100.5000, L3130.0010, L3100.3425, L504.2610 ####[facility] [address] [place], [address] Chloride [Moles/Vol] 104 mmol/L Normal 98-107 [facility] Comment on above: Performed By: #### L 100.0100, L500.4050, L3100.5000, L3130.0010, L3100.3425, L504.2610 ####[facility] [address] [place], [address] CO2 [Moles/Vol] 27.0 mmol/L Normal 21.0-32.0 [facility] Comment on above: Performed By: #### L 100.0100, L500.4050, L3100.5000, L3130.0010, L3100.3425, L504.2610 ####[facility] [address] [place], [address] Creatinine [Mass/Vol] 2.15 mg/dL High 0.55-1.02 [facility] Comment on above: Result Comment: The validity of the calculated GFR GFRAA in patients over70 years has not been determined. Clinical correlation isessential. Performed By: #### L 100.0100, L500.4050, L3100.5000, L3130.0010, L3100.3425, L504.2610 ####[facility] [address] [place], [address] ECRCL 33.86 ml/min Normal [facility] Comment on above: Performed By: #### L 100.0100, L500.4050, L3100.5000, L3130.0010, L3100.3425, L504.2610 ####[facility] [address] [place], [address] EST GFR - AA 29 mL/min Low >60 [facility] Comment on above: Result Comment: Afri can [place] GFR Calc Performed By: #### L 100.0100, L500.4050, L3100.5000, L3130.0010, L3100.3425, L504.2610 ####[facility] [address] [place], [address] GAP 8 Normal 5-15 [facility] Comment on above: Performed By: #### L 100.0100, L500.4050, L3100.5000, L3130.0010, L3100.3425, L504.2610 ####[facility] [address] [place], [address] GFR/1.73 sq M.predicted among non-blacks MDRD (S/P/Bld) [Vol rate/Area] 24 mL/min/{1.73_m2} Low >60 [facility] Comment on above: Result Comment: Non- GFR Calc Performed By: #### L 100.0100, L500.4050, L3100.5000, L3130.0010, L3100.3425, L504.2610 ####[facility] [address] [place], [address] Globulin (S) [Mass/Vol] 4.8 g/dL High 2.2-4.2 [facility] Comment on above: Performed By: #### L 100.0100, L500.4050, L3100.5000, L3130.0010, L3100.3425, L504.2610 ####[facility] [address] [place], [address] Glucose [Mass/Vol] 108 mg/dL High 74-106 [facility] Comment on above: Result Comment: Fast ing Glucose result from 100 to 125 mg/dLsuggests IMPAIRED HOMEOSTASIS per A.D.A. criteria. Performed By: #### L 100.0100, L500.4050, L3100.5000, L3130.0010, L3100.3425, L504.2610 ####[facility] [address] [place], [address] Potassium [Moles/Vol] 3.3 mmol/L Low 3.5-5.1 [facility] Comment on above: Performed By: #### L 100.0100, L500.4050, L3100.5000, L3130.0010, L3100.3425, L504.2610 ####[facility] [address] [place], [address] Sodium [Moles/Vol] 139 mmol/L Normal 136-145 [facility] Comment on above: Performed By: #### L 100.0100, L500.4050, L3100.5000, L3130.0010, L3100.3425, L504.2610 ####[facility] [address] [place], [place], [id number] T PROT 8.1 g/dL Normal 6.4-8.2 [facility] Comment on above: Performed By: #### L 100.0100, L500.4050, L3100.5000, L3130.0010, L3100.3425, L504.2610 ####[facility] [address] [place], [address] Urea nitrogen [Mass/Vol] 29 mg/dL High 7-18 [facility] Comment on above: Performed By: #### L 100.0100, L500.4050, L3100.5000, L3130.0010, L3100.3425, L504.2610 ####[facility] [address] [place], [address] Interpretation of serum or p lasma protein pattern by immunofixation (narrative resultOrdered By: David Corral on 09-10-2024 Protein Fractions Immunofixation Rodrick [Interp] Not Observed g/dL Not Observed [facility] LDHon 09-10-2024 LDH 158 U/L Normal 84-246 [facility] Comment on above: Order Comment: 1 Performed By: #### L 100.0100, L500.4050, L3100.5000, L3130.0010, L3100.3425, L504.2610 ####[facility] [address] [place], [place], [id number] No Panel InformationOrdered By: David Corral on 09-10-2024 Addendum Document Comment . [facility] Comment on above: Protein electrophore sis scan will follow via computer,mail, or garden labourer delivery. Oncology Visit Reporton 08-30 Oncology Visit Report Normal [facility] Serum immunoglobulin kappa l ight chains/immunoglobulin lambda light chains mass ratioOrdered By: David Corral on 09-10-2024 Immunoglobulin light chains.kappa/Immunoglobu nisa light chains.lambda (S) [Mass ratio] 2.31 High 0.26-1.65 [facility] Serum or plasma IgA measurem ent (mass/volume)Ordered By: [facility] on 09-10-2024 IgA [Mass/Vol] 327 mg/dL 87-352 [facility] Serum or plasma IgG measurem ent (mass/volume)Ordered By: David Ellis on 09-10-2024 IgG [Mass/Vol] 1492 mg/dL 586-1602 [facility] Serum or plasma alpha 1 glob ulin measurement by electrophoresis (mass/volume)Ordered By: David Cande on 09-10-2024 Alpha 1 globulin Elph [Mass/Vol] 0.4 g/dL 0.0-0.4 [facility] Alpha 1 globulin Elph [Mass/Vol] 0.9 g/dL 0.4-1.0 [facility] Serum or plasma beta globuli n measurement by electrophoresis (mass/volume)Ordered By: [facility] on 09-10-2024 Beta globulin Elph [Mass/Vol] 1.2 g/dL 0.7-1.3 [facility] Serum or plasma gamma globul in measurement by electrophoresis (mass/volume)Ordered By: [facility] on 09-10-2024 Gamma globulin Elph [Mass/Vol] 1.4 g/dL 0.4-1.8 [facility] Serum or plasma immunoelectr ophoresis interpretation (nominal result)Ordered By: David Ellis on 09-10-2024 Interpretation IEP [Interp] Comment . [facility] Comment on above: No monoclonality det ected. Serum or plasma immunoglobul in kappa light chains measurement (mass/volume)Ordered By: David Corral on 09-10-2024 Immunoglobulin light chains.kappa [Mass/Vol] 107.4 mg/L High 3.3-19.4 [facility] Serum or plasma protein addie urement (mass/volume)Ordered By: [facility] on 09-10-2024 Protein [Mass/Vol] 7.3 g/dL 6.0-8.5 [facility] Basic Metabolic Profile (BMP )on 09-03-2024 BUN/CRE 13.0 RATIO Normal 10-20 [facility] Comment on above: Performed By: #### L 501.9985, L500.2500 ####[facility] [address] [place], [address] CA,Total 9.4 mg/dL Normal 8.5-10.1 [facility] Comment on above: Performed By: #### L 501.9985, L500.2500 ####[facility] [address] [place], [address] Chloride [Moles/Vol] 103 mmol/L Normal 98-107 [facility] Comment on above: Performed By: #### L 501.9985, L500.2500 ####[facility] [address] [place], [address] CO2 [Moles/Vol] 28.0 mmol/L Normal 21.0-32.0 [facility] Comment on above: Performed By: #### L 501.9985, L500.2500 ####[facility] [address] [place], [address] Creatinine [Mass/Vol] 2.70 mg/dL High 0.55-1.02 [facility] Comment on above: Result Comment: The validity of the calculated GFR GFRAA in patients over70 years has not been determined. Clinical correlation isessential. Performed By: #### L 501.9985, L500.2500 ####[facility] [address] [place], [address] EST GFR - AA 23 mL/min Low >60 [facility] Comment on above: Result Comment: Afri can [place] GFR Calc Performed By: #### L 501.9985, L500.2500 ####[facility] [address] [place], [address] GAP 9 Normal 5-15 [facility] Comment on above: Performed By: #### L 501.9985, L500.2500 ####[facility] [address] [place], [address] GFR/1.73 sq M.predicted among non-blacks MDRD (S/P/Bld) [Vol rate/Area] 19 mL/min/{1.73_m2} Low >60 [facility] Comment on above: Result Comment: Non- GFR Calc Performed By: #### L 501.9985, L500.2500 ####[facility] [address] [place], [address] Glucose [Mass/Vol] 104 mg/dL Normal 74-106 [facility] Comment on above: Result Comment: Fast ing Glucose result from 100 to 125 mg/dLsuggests IMPAIRED HOMEOSTASIS per A.D.A. criteria. Performed By: #### L 501.9985, L500.2500 ####[facility] [address] [place], [address] Potassium [Moles/Vol] 3.8 mmol/L Normal 3.5-5.1 [facility] Comment on above: Performed By: #### L 501.9985, L500.2500 ####[facility] [address] [place], [address] Sodium [Moles/Vol] 140 mmol/L Normal 136-145 [facility] Comment on above: Performed By: #### L 501.9985, L500.2500 ####[facility] [address] [place], [address] Urea nitrogen [Mass/Vol] 35 mg/dL High 7-18 [facility] Comment on above: Performed By: #### L 501.9985, L500.2500 ####[facility] [address] [place], [address] Carbon dioxide measurementOr dered By: Stephie Velarde on 09-03-2024 CO2 [Moles/Vol] 28.0 mmol/L 21.0-32.0 [facility] Chloride measurementOrdered By: Stephie Velarde on 09-03-2024 Chloride [Moles/Vol] 103 mmol/L 98-107 [facility] Glomerular filtration rate ( GFR) estimationOrdered By: Stephie Velarde on 09-03-2024 GFR/1.73 sq M.predicted among non-blacks MDRD (S/P/Bld) [Vol rate/Area] 19 mL/min/{1.73_m2} Low >60 [facility] Glucose measurementOrdered B y: Stephie Velarde on 09-03-2024 Glucose [Mass/Vol] 104 mg/dL 74-106 [facility] Hemoglobin A1con 09-03-2024 HbA1c (Bld) [Mass fraction] 5.0 % Normal 3.8-5.6 [facility] Comment on above: Result Comment: Norm al < 5.7 % Prediabetic 5.7 - 6.4 % Diabetic >or= 6.5 % Please note range changes. Performed By: #### L [id number], L500.2500 ####[facility] [id number] [place], [place], [id number] Hemoglobin A1c percentageOrd ered By: Stpehie Velarde on 09-03-2024 HbA1c (Bld) [Mass fraction] 5.0 % 3.8-5.6 [facility] Internal Medicine Office Vis iton 09-03-2024 Internal Medicine Office Visit Normal [facility] Potassium measurementOrdered By: Stephie Velarde on 09-03-2024 Potassium [Moles/Vol] 3.8 mmol/L 3.5-5.1 [facility] Serum or plasma calcium addie urement (mass/volume)Ordered By: Stephie Velarde on 09-03-2024 Calcium [Mass/Vol] 9.4 mg/dL 8.5-10.1 [facility] Serum or plasma creatinine m easurement (mass/volume)Ordered By: Stephie Velarde on 09-03-2024 Creatinine [Mass/Vol] 2.70 mg/dL High 0.55-1.02 [facility] Serum or plasma urea nitroge n measurement (mass/volume)Ordered By: Stephie Velarde on 09-03-2024 Urea nitrogen [Mass/Vol] 35 mg/dL High 7-18 [facility] Sodium levelOrdered By: Mason Velarde on 09-03-2024 Sodium [Moles/Vol] 140 mmol/L 136-145 [facility] D/C Summary- SPon 07-29-2024 D/C Summary- SP Normal [facility] Cancer Antigen 125on 024 CA 125 25.1 U/mL Normal 0.0-38.1 [facility] Comment on above: Result Comment: [employer] Electrochemiluminescence Immunoassay(ECLIA)Values obtained with different assay methods or kits cannotbe used interchangeably. Results cannot be interpreted asabsolute evidence of the presence or absence of malignantdisease.Performed at: [facility] [place] [id number] Director: Joe Olivier PhD, Phone: [phone] Performed By: #### L 504.2610, L503.6550, L3100.5000, L100.0100 ####[facility] [address] [place], [address] CBC W/Diff, Automatedon 05-30 Absolute Lymph 1.57 X10 3/uL Normal 0.83-4.51 [facility] Comment on above: Performed By: #### L 504.2610, L503.6550, L3100.5000, L100.0100 ####[facility] [address] [place], [address] Absolute Neut 5.1 X10 3/uL Normal 2.0-7.7 [facility] Comment on above: Performed By: #### L 504.2610, L503.6550, L3100.5000, L100.0100 ####[facility] [address] [place], [address] Basophils/100 WBC (Bld) 0.5 % Normal 0-1 [facility] Comment on above: Performed By: #### L 504.2610, L503.6550, L3100.5000, L100.0100 ####[facility] [address] [place], [address] Eosinophils/100 WBC (Bld) 5.5 % High 0-5 [facility] Comment on above: Performed By: #### L 504.2610, L503.6550, L3100.5000, L100.0100 ####[facility] [address] [place], [address] Erythrocyte distribution width (RBC) [Ratio] 14.7 % High 11.6-14.6 [facility] Comment on above: Performed By: #### L 504.2610, L503.6550, L3100.5000, L100.0100 ####[facility] [address] [place], [address] Hematocrit (Bld) [Volume fraction] 34.5 % Low 37-47 [facility] Comment on above: Performed By: #### L 504.2610, L503.6550, L3100.5000, L100.0100 ####[facility] [address] [place], [address] Hemoglobin (Bld) [Mass/Vol] 11.1 g/dL Low 12.0-15.0 [facility] Comment on above: Performed By: #### L 504.2610, L503.6550, L3100.5000, L100.0100 ####[facility] [address] [place], [address] IG% 0.400 Normal 0.0-0.9 [facility] Comment on above: Result Comment: IG% - Immature Granulocytes (promyelocytes, myelocytes andmetamyelocytes) > 1% indicates that a LEFT SHIFT is Present. Performed By: #### L 504.2610, L503.6550, L3100.5000, L100.0100 ####[facility] [address] [place], [address] Lymphocytes/100 WBC (Bld) 20.2 % Normal 19-41 [facility] Comment on above: Performed By: #### L 504.2610, L503.6550, L3100.5000, L100.0100 ####[facility] [address] [place], [address] MCH (RBC) [Entitic mass] 32.3 pg High 27.0-32.0 [facility] Comment on above: Performed By: #### L 504.2610, L503.6550, L3100.5000, L100.0100 ####[facility] [address] [place], [address] MCHC (RBC) [Mass/Vol] 32.2 g/dL Normal 32-36 [facility] Comment on above: Performed By: #### L 504.2610, L503.6550, L3100.5000, L100.0100 ####[facility] [address] [place], [address] MCV (RBC) [Entitic vol] 100.3 fL High 81-99 [facility] Comment on above: Performed By: #### L 504.2610, L503.6550, L3100.5000, L100.0100 ####[facility] [address] [place], [address] Monocytes/100 WBC (Bld) 8.1 % Normal 0-10 [facility] Comment on above: Performed By: #### L 504.2610, L503.6550, L3100.5000, L100.0100 ####[facility] [address] [place], [address] Neutrophils/100 WBC (Bld) 65.3 % Normal 47-70 [facility] Comment on above: Performed By: #### L 504.2610, L503.6550, L3100.5000, L100.0100 ####[facility] [address] [place], [address] Nucleated RBC (Bld) [#/Vol] 0 10*3/uL Normal 0-5 [facility] Comment on above: Performed By: #### L 504.2610, L503.6550, L3100.5000, L100.0100 ####[facility] [address] [place], [address] Platelet mean volume (Bld) [Entitic vol] 11.8 fL Normal 6.2-12.0 [facility] Comment on above: Performed By: #### L 504.2610, L503.6550, L3100.5000, L100.0100 ####[facility] [address] [place], [address] Platelets (Bld) [#/Vol] 195 10*3/uL Normal 150-450 [facility] Comment on above: Performed By: #### L 504.2610, L503.6550, L3100.5000, L100.0100 ####[facility] [address] [place], [address] RBC (Bld) [#/Vol] 3.44 10*6/uL Low 4.2-5.4 [facility] Comment on above: Performed By: #### L 504.2610, L503.6550, L3100.5000, L100.0100 ####[facility] [address] [place], [address] RDW SD 54.9 fl High 35.1-43.9 [facility] Comment on above: Performed By: #### L 504.2610, L503.6550, L3100.5000, L100.0100 ####[facility] [address] [place], [address] WBC (Bld) [#/Vol] 7.8 10*3/uL Normal 4.4-11.0 [facility] Comment on above: Performed By: #### L 504.2610, L503.6550, L3100.5000, L100.0100 ####[facility] [address] [place], [address] Comprehensive Metabolic Prof ilon 06-12-2024 Albumin [Mass/Vol] 3.5 g/dL Normal 3.2-5.0 [facility] Comment on above: Performed By: #### L 501.9985, L500.4050, L500.4100, L503.6030 ####[facility] [address] [place], [address] Albumin/Globulin [Mass ratio] 0.8 {ratio} Low 0.9-2.4 [facility] Comment on above: Performed By: #### L 501.9985, L500.4050, L500.4100, L503.6030 ####[facility] [address] [place], [address] ALK P 121 U/L High 45-117 [facility] Comment on above: Performed By: #### L 501.9985, L500.4050, L500.4100, L503.6030 ####[facility] [address] [place], [address] ALT [Catalytic activity/Vol] 16 U/L Normal 13-56 [facility] Comment on above: Performed By: #### L 501.9985, L500.4050, L500.4100, L503.6030 ####[facility] [address] [place], [address] AST [Catalytic activity/Vol] 19 U/L Normal 15-37 [facility] Comment on above: Performed By: #### L 501.9985, L500.4050, L500.4100, L503.6030 ####[facility] [address] [place], [address] Bilirubin [Mass/Vol] 0.30 mg/dL Normal 0.20-1.00 [facility] Comment on above: Result Comment: For patients on eltrombopag therapy, use of Dimension Marcella TBIL is not recommended. Performed By: #### L 501.9985, L500.4050, L500.4100, L503.6030 ####[facility] [address] [place], [address] BUN/CRE 21.6 RATIO High 10-20 [facility] Comment on above: Performed By: #### L 501.9985, L500.4050, L500.4100, L503.6030 ####[facility] [address] [place], [address] CA,Total 9.4 mg/dL Normal 8.5-10.1 [facility] Comment on above: Performed By: #### L 501.9985, L500.4050, L500.4100, L503.6030 ####[facility] [address] [place], [address] Chloride [Moles/Vol] 107 mmol/L Normal 98-107 [facility] Comment on above: Performed By: #### L 501.9985, L500.4050, L500.4100, L503.6030 ####[facility] [address] [place], [address] CO2 [Moles/Vol] 28.0 mmol/L Normal 21.0-32.0 [facility] Comment on above: Performed By: #### L 501.9985, L500.4050, L500.4100, L503.6030 ####[facility] [address] [place], [address] Creatinine [Mass/Vol] 1.90 mg/dL High 0.55-1.02 [facility] Comment on above: Result Comment: The validity of the calculated GFR GFRAA in patients over70 years has not been determined. Clinical correlation isessential. Performed By: #### L 501.9985, L500.4050, L500.4100, L503.6030 ####[facility] [address] [place], [address] ECRCL 38.31 ml/min Normal [facility] Comment on above: Performed By: #### L 501.9985, L500.4050, L500.4100, L503.6030 ####[facility] [address] [place], [address] EST GFR - AA 34 mL/min Low >60 [facility] Comment on above: Result Comment: Afri can [place] GFR Calc Performed By: #### L 501.9985, L500.4050, L500.4100, L503.6030 ####[facility] [address] [place], [address] GAP 6 Normal 5-15 [facility] Comment on above: Performed By: #### L 501.9985, L500.4050, L500.4100, L503.6030 ####[facility] [address] [place], [address] GFR/1.73 sq M.predicted among non-blacks MDRD (S/P/Bld) [Vol rate/Area] 28 mL/min/{1.73_m2} Low >60 [facility] Comment on above: Result Comment: Non- GFR Calc Performed By: #### L 501.9985, L500.4050, L500.4100, L503.6030 ####[facility] [address] [place], [address] Globulin (S) [Mass/Vol] 4.4 g/dL High 2.2-4.2 [facility] Comment on above: Performed By: #### L 501.9985, L500.4050, L500.4100, L503.6030 ####[facility] [address] [place], [address] Glucose [Mass/Vol] 107 mg/dL High 74-106 [facility] Comment on above: Result Comment: Fast ing Glucose result from 100 to 125 mg/dLsuggests IMPAIRED HOMEOSTASIS per A.D.A. criteria. Performed By: #### L 501.9985, L500.4050, L500.4100, L503.6030 ####[facility] [address] [place], [address] Potassium [Moles/Vol] 3.6 mmol/L Normal 3.5-5.1 [facility] Comment on above: Performed By: #### L 501.9985, L500.4050, L500.4100, L503.6030 ####[facility] [address] [place], [address] Sodium [Moles/Vol] 141 mmol/L Normal 136-145 [facility] Comment on above: Performed By: #### L 501.9985, L500.4050, L500.4100, L503.6030 ####[facility] [address] [place], [address] T PROT 7.9 g/dL Normal 6.4-8.2 [facility] Comment on above: Performed By: #### L 501.9985, L500.4050, L500.4100, L503.6030 ####[facility] [address] [place], [address] Urea nitrogen [Mass/Vol] 41 mg/dL High 7-18 [facility] Comment on above: Performed By: #### L 501.9985, L500.4050, L500.4100, L503.6030 ####[facility] [address] [place], [address] Ferritinon 06-12-2024 Ferritin [Mass/Vol] 1219 ng/mL High 8-252 [facility] Comment on above: Order Comment: 1 Performed By: #### L 504.2610, L503.6550, L3100.5000, L100.0100 ####[facility] [address] [place], [place], [address] Hemoglobin A1con 06-12-2024 HbA1c (Bld) [Mass fraction] 5.4 % Normal 3.8-5.6 [facility] Comment on above: Result Comment: Norm al < 5.7 % Prediabetic 5.7 - 6.4 % Diabetic >or= 6.5 % Please note range changes. Performed By: #### L 501.9985, L500.4050, L500.4100, L503.6030 ####[facility] [address] [place], [place], [address] Hemoglobin A1c percentageOrd ered By: Stephie Velarde on 06-12-2024 HbA1c (Bld) [Mass fraction] 5.4 % 3.8-5.6 [facility] Comment on above: Normal < 5.7 % Predi abetic 5.7 - 6.4 % Diabetic >or= 6.5 % Please note range changes. High density lipoprotein (HD L) measurementOrdered By: Stephie Velarde on 06-12-2024 Cholesterol in HDL [Mass/Vol] 56 mg/dL >40 [facility] Comment on above: The drugs N-Acetylcy steine and Metamizole may falsely depress this assay. Reference Range HDL <40 mg/dL Low HDL Cholesterol HDL >or= 60 mg/dL High HDL Cholesterol High density lipoprotein (HDL) measurement 56 mg/dL >40 [facility] Internal Medicine Office Vis iton 06-12-2024 Internal Medicine Office Visit Normal [facility] Iron measurement (mass/mass) Ordered By: David Corral on 06-12-2024 Iron (Unsp spec) [Mass/Mass] 54 ug/dL 50-170 [facility] Iron+Iron Binding Capacityon 06-12-2024 Iron [Mass/Vol] 54 ug/dL Normal 50-170 [facility] Comment on above: Performed By: #### L 501.9985, L500.4050, L500.4100, L503.6030 ####[facility] [address] [place], [address] IRON SATURATION 23.8 Normal 15.0-55.0 [facility] Comment on above: Performed By: #### L 501.9985, L500.4050, L500.4100, L503.6030 ####[facility] [address] [place], [address] TIBC 227 ug/dL Low 250-450 [facility] Comment on above: Performed By: #### L 501.9985, L500.4050, L500.4100, L503.6030 ####[facility] [address] [place], [address] LDHon 06-12-2024 LDH 172 U/L Normal 84-246 [facility] Comment on above: Order Comment: 1 Performed By: #### L 504.2610, L503.6550, L3100.5000, L100.0100 ####[facility] [address] [place], [address] Lipid Profileon 06-12-2024 Cholesterol [Mass/Vol] 222 mg/dL High 200 [facility] Comment on above: Result Comment: <200 mg/dL Desirable 200-240 mg/dL Borderline >240 mg/dL High Risk Performed By: #### L 501.9985, L500.4050, L500.4100, L503.6030 ####[facility] [address] [place], [address] Cholesterol in HDL [Mass/Vol] 56 mg/dL Normal [facility] Comment on above: Result Comment: The drugs N-Acetylcysteine and Metamizole may falselydepress this assay. Reference Range HDL <40 mg/dL Low HDL Cholesterol HDL >or= 60 mg/dL High HDL Cholesterol Performed By: #### L 501.9985, L500.4050, L500.4100, L503.6030 ####[facility] [address] [place], [address] Cholesterol in LDL [Mass/Vol] 146 mg/dL High 0-130 [facility] Comment on above: Performed By: #### L 501.9985, L500.4050, L500.4100, L503.6030 ####[facility] [address] [place], [address] Cholesterol in VLDL [Mass/Vol] 20 mg/dL Normal 5-40 [facility] Comment on above: Performed By: #### L 501.9985, L500.4050, L500.4100, L503.6030 ####[facility] [address] [place], [address] Triglyceride [Mass/Vol] 100 mg/dL Normal [facility] Comment on above: Result Comment: The drugs N-Acetylcysteine and Metamizole may falselydepress this assay.Serum Triglycerides Reference Interval Normal <150 mg/dL Borderline high 150 - 199 mg/dL High 200 - 499 mg/dL Very High > or = 500 mg/dL Performed By: #### L 501.9985, L500.4050, L500.4100, L503.6030 ####[facility] [address] [place], [address] Low density lipoprotein (LDL ) cholesterol measurementOrdered By: Stephie Velarde on 06-12-2024 Cholesterol in LDL [Mass/Vol] 146 mg/dL High 0-130 [facility] Low density lipoprotein (LDL) cholesterol measurement 146 mg/dL High 0-130 [facility] Oncology Visit Reporton 05-30 Oncology Visit Report Normal [facility] Serum or plasma cholesterol measurement (mass/volume)Ordered By: Stephie Velarde on 06-12-2024 Cholesterol [Mass/Vol] 222 mg/dL High <200 [facility] Comment on above: <200 mg/dL Desirable 200-240 mg/dL Borderline >240 mg/dL High Risk Serum or plasma iron saturat ion measurement (mass fraction)Ordered By: David Corral on 06-12-2024 Iron saturation [Mass fraction] 23.8 % 15.0-55.0 [facility] Triglycerides measurementOrd ered By: Stephie Velarde on 06-12-2024 Triglyceride [Mass/Vol] 100 mg/dL <199 [facility] Comment on above: The drugs N-Acetylcy steine and Metamizole may falsely depress this assay.Serum Triglycerides Reference Interval Normal <150 mg/dL Borderline high 150 - 199 mg/dL High 200 - 499 mg/dL Very High > or = 500 mg/dL Very low density lipoprotein (VLDL) cholesterol measurementOrdered By: Stephie Velarde on 06-12-2024 Very low density lipoprotein (VLDL) cholesterol measurement 20 mg/dL 5-40 [facility] C-reactive protein measureme nt by high sensitivity methodOrdered By: David Corral on 03-20-2024 C-reactive protein measurement by high sensitivity method 44.30 mg/L High 0.0-3.0 [facility] Comment on above: C-Reactive Protein ( CRP) provides useful information for thediagnosis, therapy and monitoring of inflammatory processesand associated diseases. For the evaluation of Relative Riskfor Cardiovascular Disease, a High Sensitivity CRP (HSCRP)should be ordered. Erythrocyte sedimentation ra teOrdered By: David Corral on 03-20-2024 ESR (Bld) [Velocity] 64 mm/h High 0-30 [facility] CNCOon 12-26-2023 CNC HNO ID: [id number] Author: COORDINATOR, MAMMOGRAPHY, ? Service: ? Author Type: Physician Type: Letter Filed: 12/26/2023 21:58 Note Text: December 27, 2023 PID: [id number] Britta Young [address] [place] [address] Dear Ms. Young, We are pleased to [...] report will be kept on file at [facility] as part of your permanent medical record and are available for your continuing care. Thank you for allowing us to help in meeting your health care needs. Sincerely, Dr. Adler Interpreting Radiologist [facility] (Normal over 40) Normal [facility] DBT Breast - bilateral sofia soler 12-26-2023 IMPRESSION: BENIGN FINDING There is no mammographic evidence of malignancy. A 1 year screening mammogram is recommended. Caroline Adler M.D. rs/sony:12/26/2023 21:58:10 Gemologist(s): Mariza Galvez RT(R)(M), [facility] letter sent: Normal over 40 Mammogram BI-RADS: [...] Health, Family Medicine, and Medical/Surgical Oncology, the [facility] has carefully reviewed the data and [...] their providers when to stop screening mammograms. Pocket Creaser: [employer] Trans[employer] Date/Time: Dec 26 2023 3:58P Dictated by: CAROLINE ADLER MD This examination was interpreted and the report reviewed and electronically signed by: CAROLINE ADLER MD on Dec 26 2023 9:58PM [facility] DIVISION OF RADIOLOGY * * *Final Report* * * DATE OF EXAM: Dec 26 2023 4:27PM W 0582 - [facility] SCREENING W BUDDY / PROCEDURE REASON: breast screening * * * * Physician Interpretation * * * * RESULT: #[id number] - [facility] SCREENING W BUDDY BILATERAL DIGITAL [...] dated: 06/05/2022 mammogram and 01/06/2021 mammogram - [facility]. There are scattered areas of fibroglandular density. The study is suboptimal in positioning due to the patient's factors. There are benign calcifications in both breasts. No significant masses, calcifications, or other findings are seen in either breast. There has been no significant interval change. DIVISION OF RADIOLOGY Provider, [facility] - 12/26/2023 * * *Final Report* * * DATE OF EXAM: Dec 26 2023 4:27PM WRW 0582 - [facility] SCREENING W BUDDY / PROCEDURE REASON: breast screening * * * * Physician Interpretation * * * * RESULT: #[id number] - [facility] SCREENING W BUDDY BILATERAL DIGITAL SCREENING MAMMOGRAM [...] dated: 06/05/2022 mammogram and 01/06/2021 mammogram - [facility]. There are scattered areas of fibroglandular density. The study is suboptimal in positioning due to the patient's factors. There are benign calcifications in both breasts. No significant masses, calcifications, or other findings are seen in either breast. There has been no significant interval change. IMPRESSION IMPRESSION: BENIGN FINDING There is no mammographic evidence of malignancy. A 1 year screening mammogram is recommended. aCroline Adler M.D. rs/penrad:12/26/2023 21:58:10 Gemologist(s): RT Hernesto(R)(M), [facility] letter sent: Normal over 40 Mammogram BI-RADS: [...] Health, Family Medicine, and Medical/Surgical Oncology, the [facility] has carefully reviewed the data and [...] their providers when to stop screening mammograms. Pocket Creaser: [employer] Trans[employer] Date/Time: Dec 26 2023 3:58P Dictated by: CAROLINE ADLER MD This examination was interpreted and the report reviewed and electronically signed by: CAROLINE ADLER MD on Dec 26 2023 9:58PM EST [facility] Radiology Study observation (narrative) [facility] DBT Breast - bilateral scree ningOrdered By: Ccjarrod Provider on 12-26-2023 [facility] SCREENING W TOMOon 12-25 [facility] SCREENING W BUDDY * * *Final Report* * * DATE OF EXAM: Dec 26 2023 4:27PM [facility] 0582 - [facility] SCREENING W BUDDY / PROCEDURE REASON: breast screening * * * * Physician Interpretation * * * * RESULT: #[id number] - [facility] SCREENING W BUDDY BILATERAL DIGITAL [...] dated: 06/05/2022 mammogram and 01/06/2021 mammogram - [facility]. There are scattered areas of fibroglandular density. [...] screening mammogram is recommended. Caroline puga/sony:12/26/2023 21:58:10 Gemologist(s): RT Hernesto(R)(M), [facility] letter sent: Normal over 40 Mammogram BI-RADS: [...] Health, Family Medicine, and Medical/Surgical Oncology, the [facility] has carefully reviewed the data and [...] their providers when to stop screening mammograms. Pocket Creaser: [employer] Trans[employer] Date/Time: Dec 26 2023 3:58P Dictated by: CAROLINE ADLER MD This examination was interpreted and the report reviewed and electronically signed by: CAROLINE ADLER MD on Dec 26 2023 9:58PM EST [id number] Normal [facility] Absolute lymphocyte countOrd ered By: David Corral on 11-29-2023 Lymphocytes Auto (Unsp spec) [#/Vol] 1.27 10*3/uL 0.83-4.51 [facility] Automated lymphocyte count a s percentage of total leukocytesOrdered By: David Corral on 11-29-2023 Lymphocytes/100 WBC Auto (Unsp spec) 15.7 % 19-41 [facility] Basophil percentageOrdered B y: David Corral on 11-29-2023 Basophils/100 WBC (Bld) 0.4 % 0-1 [facility] Bilirubin [Mass/Vol] 0.40 mg/dL 0.20-1.00 [facility] Comment on above: For patients on eltr ombopag therapy, use of Dimension Marcella TBIL is not recommended. Chloride [Moles/Vol] 105 mmol/L 98-107 [facility] Eosinophils/100 WBC (Bld) 4.6 % 0-5 [facility] Glucose [Mass/Vol] 118 mg/dL 74-106 [facility] Comment on above: Fasting Glucose resu lt from 100 to 125 mg/dL suggests IMPAIRED HOMEOSTASIS per A.D.A. criteria. Hemoglobin (Bld) [Mass/Vol] 11.1 g/dL 12.0-15.0 [facility] LDH [Catalytic activity/Vol] 176 U/L 84-246 [facility] Monocytes/100 WBC (Bld) 8.8 % 0-10 [facility] Neutrophils (Bld) [#/Vol] 5.7 10*3/uL 2.0-7.7 [facility] Neutrophils/100 WBC (Bld) 70.0 % 47-70 [facility] Potassium [Moles/Vol] 3.8 mmol/L 3.5-5.1 [facility] Protein [Mass/Vol] 8.0 g/dL 6.4-8.2 [facility] Sodium [Moles/Vol] 140 mmol/L 136-145 [facility] WBC (Bld) [#/Vol] 8.1 10*3/uL 4.4-11.0 [facility] Determination of erythrocyte mean corpuscular volume (MCV)Ordered By: David Corral on 11-29-2023 MCV (RBC) [Entitic vol] 98.9 fL 81-99 [facility] Erythrocyte distribution wid th ratioOrdered By: David Corral on 11-29-2023 Erythrocyte distribution width (RBC) [Ratio] 14.4 % 11.6-14.6 [facility] Erythrocyte distribution wid th standard deviationOrdered By: David Corral on 11-29-2023 Erythrocyte distribution width (RBC) [Entitic vol] 52.5 fL 35.1-43.9 [facility] Hematocrit Auto (Bld) [Volum e fraction]Ordered By: David Corral on 11-29-2023 Hematocrit (Bld) [Volume fraction] 35.6 % 37-47 [facility] Immature granulocytes/100 WB C Auto (Bld)Ordered By: David Corral on 11-29-2023 Immature granulocytes/100 WBC (Bld) 0.500 % 0.0-0.9 [facility] Comment on above: IG% - Immature Granu locytes (promyelocytes, myelocytes and metamyelocytes) > 1% indicates that a LEFT SHIFT is Present. Laboratory - Chemistry and C hemistry - challengeOrdered By: David Corral on 11-29-2023 Albumin/Globulin [Mass ratio] 0.9 {ratio} 0.9-2.4 [facility] ALP [Catalytic activity/Vol] 129 U/L 45-117 [facility] ALT [Catalytic activity/Vol] 16 U/L 13-56 [facility] CO2 [Moles/Vol] 28.0 mmol/L 21.0-32.0 [facility] Globulin (S) [Mass/Vol] 4.3 g/dL 2.2-4.2 [facility] Urea nitrogen/Creatinine [Mass ratio] 18.1 mg/mg 10-20 [facility] Laboratory - Hematology and Cell countsOrdered By: David Corral on 11-29-2023 MCH (RBC) [Entitic mass] 30.8 pg 27.0-32.0 [facility] MCHC (RBC) [Mass/Vol] 31.2 g/dL 32-36 [facility] Nucleated RBC/100 WBC (Bld) [Ratio] 0 % 0-5 [facility] Platelet mean volume (Bld) [Entitic vol] 12.1 fL 6.2-12.0 [facility] Platelets (Bld) [#/Vol] 200 10*3/uL 150-450 [facility] No Panel InformationOrdered By: David Corral on 11-29-2023 Estimated Creatinine Clearance Calc 31.18 ml/min [facility] Estimated GFR (MDRD) Amer 29 mL/min >60 [facility] Comment on above: GFR Calc Estimated GFR (MDRD) Non-Af Amer 24 mL/min >60 [facility] Comment on above: Non- GFR Calc RBC Auto (Bld) [#/Vol]Ordere d By: David Corral on 11-29-2023 RBC (Bld) [#/Vol] 3.60 10*6/uL 4.2-5.4 [facility] Serum or plasma calcium addie urement (mass/volume)Ordered By: David Corral on 11-29-2023 Calcium [Mass/Vol] 9.5 mg/dL 8.5-10.1 [facility] Serum or plasma creatinine m easurement (mass/volume)Ordered By: David Corral on 11-29-2023 Creatinine [Mass/Vol] 2.16 mg/dL 0.55-1.02 [facility] Comment on above: The validity of the calculated GFR & GFRAA in patients over 70 years has not been determined. Clinical correlation is essential. Serum or plasma urea nitroge n measurement (mass/volume)Ordered By: David Corral on 11-29-2023 Urea nitrogen [Mass/Vol] 39 mg/dL 7-18 [facility] Thin prep Papanicolaou smear with manual screeningOrdered By: David Corral on 11-29-2023 Thin prep Papanicolaou smear with manual screening 3.7 g/dL 3.2-5.0 [facility] Thin prep Papanicolaou smear with manual screening 18 U/L 15-37 [facility] Thin prep Papanicolaou smear with manual screening 7 5-15 [facility] Erythrocyte sedimentation ra teOrdered By: David Corral on 10-04-2023 ESR (Bld) [Velocity] 57 mm/h 0-30 [facility] Iron measurement (mass/mass) Ordered By: David Corral on 10-04-2023 Iron (Unsp spec) [Mass/Mass] 44 ug/dL 50-170 [facility] Laboratory - Chemistry and C hemistry - challengeOrdered By: David Corral on 10-04-2023 Ferritin [Mass/Vol] 730 ng/mL 8-252 [facility] No Panel InformationOrdered By: David Corral on 10-04-2023 CA 125 Antigen 16.1 U/mL 0.0-38.1 [facility] Comment on above: David [employer] El ectrochemiluminescence Immunoassay(ECLIA)Values obtained with different assay methods or kits cannotbe used interchangeably. Results cannot be interpreted asabsolute evidence of the presence or absence of malignantdisease. Total Iron Binding Capacity 209 ug/dL 250-450 [facility] Serum or plasma erythropoiet in (EPO) measurement (units/volume)Ordered By: David Croral on 10-04-2023 Erythropoietin (EPO) Qn 19.4 mIU/mL High 2.6-18.5 [facility] Comment on above: [employer] DxI 800 Immunoassay SystemValues obtained with different assay methods or kits cannotbe used interchangeably. Results cannot be interpreted asabsolute evidence of the presence or absence of malignantdisease.Performed at: [id number] Director: Joe Olivier PhD, Phone: [phone] Serum or plasma iron saturat ion measurement (mass fraction)Ordered By: David Castellon on 10-04-2023 Iron saturation [Mass fraction] 21.1 % 15.0-55.0 [facility] Laboratory - Hematology and Cell countson 08-27-2023 HbA1c (Bld) [Mass fraction] 5.4 % 4.2-6.3 [facility] No Panel InformationOrdered By: David Corral on 08-02-2023 Miscellaneous Test See comment [facility] Comment on above: TEST RESULTS LIMITSC eliac Ab tTG TIgA w/Rflxt-Transglutaminase (tTG) IgA <2 U/mL 0-3 Negative 0 - 3 Weak Positive 4 - 10 Positive >10 Tissue Transglutaminase (tTG) has been identified as the endomysial antigen. Studies have demonstr- ated that endomysial IgA antibodies have over 99% specificity for gluten sensitive enteropathy.Immunoglobulin A, Qn,Serum 275 mg/dL 87-352 TESTING PERFORMED AT [facility] [employer]. ORIGINAL REPORT ON FILE IN LAB CONTAINS ADDITIONAL TEST SITE INFORMATION. See comment [facility] Stool gastrointestinal hemog lobin detection by immunologic methodOrdered By: David Corral on 07-09-2023 Lower GI hemoglobin IA Ql (Stl) [facility] Blood manual differential co mment interpretation (narrative result)Ordered By: David Corral on 07-05-2023 Manual differential comment Rodrick (Bld) [Interp] SCANNED [facility] Serum or plasma C reactive p rotein measurement (mass/volume)Ordered By: David Corral on 07-05-2023 CRP [Mass/Vol] 38.50 mg/L 0.0-3.0 [facility] Comment on above: C-Reactive Protein ( CRP) provides useful information for thediagnosis, therapy and monitoring of inflammatory processesand associated diseases. For the evaluation of Relative Riskfor Cardiovascular Disease, a High Sensitivity CRP (HSCRP)should be ordered. DHRUVon 05-08-2023 [facility] ----- BRITTA YOUNG ([id number]) 1955 F Date Time Provider Department 05/08/23 12:45 PM DARLENE FORDE [facility] During your visit today, we recorded [...] been evaluated [facility], Linda Shepard in [place], beginning of this year, stating she was evaluated and had x 2 teeth pulled. States she saw [facility], last year, and start of gum [...] history is provided by the patient. No manager style was used. Mouth/Lip Problem This is a [...] PAST MEDICAL HISTORY Diagnosis Date Pneumonia 2010 [facility]. Unspecified essential hypertension PAST SURGICAL HISTORY Procedure [...] Dx: CARLA G47.33 COMPR.STOCKING,THIGH,REG, X-LRG (COMP.STOCKING,THIGH,REG, X-LRG) [facility] [place] stockings through the day.remove at night. [...] and n (more content not included)... Normal [facility] Avila Albumin Elph [Mass/Vol]Order ed By: David Corral on 04-12-2023 Albumin [Mass/Vol] 3.3 g/dL 2.9-4.4 [facility] Interpretation of serum or p lasma protein pattern by immunofixation (narrative resultOrdered By: David Corral on 04-12-2023 Protein Fractions Immunofixation Rodrick [Interp] See comment [facility] Comment on above: NOT OBSERVED No Panel InformationOrdered By: David Corral on 04-12-2023 Addendum Document Comment . [facility] Comment on above: Protein electrophore sis scan will follow via computer,mail, or garden labourer delivery. Free Lambda Light Chains, Quant 35.3 mg/L 5.7-26.3 [facility] Serum [id number] measu rement by electrophoresisOrdered By: David Corral on 04-12-2023 Alpha 1 globulin Elph [Mass/Vol] 0.3 g/dL 0.0-0.4 [facility] Alpha 1 globulin Elph [Mass/Vol] 0.8 g/dL 0.4-1.0 [facility] Serum immunoglobulin kappa l ight chains/immunoglobulin lambda light chains mass ratioOrdered By: David Corral on 04-12-2023 Immunoglobulin light chains.kappa/Immunoglobu nisa light chains.lambda (S) [Mass ratio] 2.59 0.26-1.65 [facility] Serum or plasma IgA measurem ent (mass/volume)Ordered By: David Corral on 04-12-2023 IgA [Mass/Vol] 256 mg/dL 87-352 [facility] Serum or plasma IgG measurem ent (mass/volume)Ordered By: David Corral on 04-12-2023 IgG [Mass/Vol] 1396 mg/dL 586-1602 [facility] Serum or plasma IgM measurem ent (mass/volume)Ordered By: David Corral on 04-12-2023 IgM [Mass/Vol] 61 mg/dL 26-217 [facility] Serum or plasma beta globuli n measurement by electrophoresis (mass/volume)Ordered By: David Corral on 04-12-2023 Beta globulin Elph [Mass/Vol] 1.0 g/dL 0.7-1.3 [facility] Serum or plasma gamma globul in measurement by electrophoresis (mass/volume)Ordered By: David Corral on 04-12-2023 Gamma globulin Elph [Mass/Vol] 1.5 g/dL 0.4-1.8 [facility] Serum or plasma immunoelectr ophoresis interpretation (nominal result)Ordered By: David Corral on 04-12-2023 Interpretation IEP [Interp] Comment . [facility] Comment on above: No monoclonality det ected. Serum or plasma immunoglobul in kappa light chains measurement (mass/volume)Ordered By: David Corral on 04-12-2023 Immunoglobulin light chains.kappa [Mass/Vol] 91.4 mg/L 3.3-19.4 [facility] Thin prep Papanicolaou smear with manual screeningOrdered By: David Corral on 04-12-2023 Thin prep Papanicolaou smear with manual screening 1.0 0.7-1.7 [facility] Total protein bloodOrdered B y: David Corral on 04-12-2023 Protein [Mass/Vol] 6.9 g/dL 6.0-8.5 [facility] Laboratory - Chemistry and C hemistry - challengeOrdered By: Berna Pierson on 03-14-2023 Cobalamin (Vitamin B12) [Mass/Vol] 473 pg/mL [facility] No Panel InformationOrdered By: Berna Pierson on 03-14-2023 Thyroid Stimulating Hormone (TSH) 0.50 uIU/mL 0.358-3.74 [facility] 0.50 uIU/mL 0.358-3.74 [facility] 473 pg/mL [facility] Serum or plasma folate measu rement (mass/volume)Ordered By: Berna Pierson on 03-14-2023 Folate [Mass/Vol] 5.60 ng/mL 3.1-55.4 [facility] Absolute lymphocyte countOrd ered By: Dr. Corral on 11-08-2022 Lymphocytes Auto (Unsp spec) [#/Vol] 1.62 10*3/uL 0.83-4.51 [facility] Basophil percentageOrdered B y: Dr. Corral on 11-08-2022 Basophils/100 WBC (Bld) 0.4 % 0-1 [facility] Bilirubin [Mass/Vol] 0.40 mg/dL 0.20-1.00 [facility] Comment on above: For patients on eltr ombopag therapy, use of Dimension Marcella TBIL is not recommended. Chloride [Moles/Vol] 104 mmol/L 98-107 [facility] Eosinophils/100 WBC (Bld) 3.8 % 0-5 [facility] Glucose [Mass/Vol] 100 mg/dL 74-106 [facility] Comment on above: Fasting Glucose resu lt from 100 to 125 mg/dL suggests IMPAIRED HOMEOSTASIS per A.D.A. criteria. LDH [Catalytic activity/Vol] 180 U/L 84-246 [facility] Neutrophils (Bld) [#/Vol] 5.2 10*3/uL 2.0-7.7 [facility] Neutrophils/100 WBC (Bld) 66.3 % 47-70 [facility] Potassium [Moles/Vol] 3.5 mmol/L 3.5-5.1 [facility] Protein [Mass/Vol] 7.6 g/dL 6.4-8.2 [facility] Sodium [Moles/Vol] 138 mmol/L 136-145 [facility] WBC (Bld) [#/Vol] 7.9 10*3/uL 4.4-11.0 [facility] Blood erythrocytes count (nu mber/volume)Ordered By: Dr. Corral on 11-08-2022 RBC (Bld) [#/Vol] 3.56 10*6/uL 4.2-5.4 [facility] Blood hemoglobin measurement (mass/volume)Ordered By: Dr. Corral on 11-08-2022 Hemoglobin (Bld) [Mass/Vol] 11.7 g/dL 12.0-15.0 [facility] Blood lymphocytes/100 leukoc ytesOrdered By: Dr. Corral on 11-08-2022 Lymphocytes/100 WBC (Bld) 20.5 % 19-41 [facility] Blood monocytes/100 leukocyt esOrdered By: Dr. Corral on 11-08-2022 Monocytes/100 WBC (Bld) 8.5 % 0-10 [facility] Blood platelet mean volumeOr dered By: Dr. Corral on 11-08-2022 Platelet mean volume (Bld) [Entitic vol] 12.3 fL 6.2-12.0 [facility] Determination of erythrocyte mean corpuscular volume (MCV)Ordered By: Dr. Corral on 11-08-2022 MCV (RBC) [Entitic vol] 102.5 fL 81-99 [facility] Hematocrit Auto (Bld) [Volum e fraction]Ordered By: Dr. Corral on 11-08-2022 Hematocrit (Bld) [Volume fraction] 36.5 % 37-47 [facility] Laboratory - Chemistry and C hemistry - challengeOrdered By: Dr. Corral on 11-08-2022 ALP [Catalytic activity/Vol] 97 U/L 45-117 [facility] ALT [Catalytic activity/Vol] 21 U/L 13-56 [facility] CO2 [Moles/Vol] 32.0 mmol/L 21.0-32.0 [facility] Globulin (S) [Mass/Vol] 4.3 g/dL 2.2-4.2 [facility] Urea nitrogen/Creatinine [Mass ratio] 17.9 mg/mg 10-20 [facility] Laboratory - Hematology and Cell countsOrdered By: Dr. Corral on 11-08-2022 Erythrocyte distribution width (RBC) [Entitic vol] 53.2 fL 35.1-43.9 [facility] Erythrocyte distribution width (RBC) [Ratio] 14.0 % 11.6-14.6 [facility] Immature granulocytes/100 WBC (Bld) 0.500 % 0.0-0.9 [facility] Comment on above: IG% - Immature Granu locytes (promyelocytes, myelocytes and metamyelocytes) > 1% indicates that a LEFT SHIFT is Present. MCH (RBC) [Entitic mass] 32.9 pg 27.0-32.0 [facility] Nucleated RBC/100 WBC (Bld) [Ratio] 0 % 0-5 [facility] MCHC Auto (RBC) [Mass/Vol]Or dered By: Dr. Corral on 11-08-2022 MCHC (RBC) [Mass/Vol] 32.1 g/dL 32-36 [facility] No Panel InformationOrdered By: Dr. Corral on 11-08-2022 CA 125 Antigen 12.5 U/mL 0.0-38.1 [facility] Comment on above: [employer] El ectrochemiluminescence Immunoassay(ECLIA)Values obtained with different assay methods or kits cannotbe used interchangeably. Results cannot be interpreted asabsolute evidence of the presence or absence of malignantdisease.Performed at: [facility] [id number] Director: Joe Olivier PhD, Phone: [phone] Estimated Creatinine Clearance Calc 23.13 ml/min [facility] Estimated GFR (MDRD) Amer 28 mL/min >60 [facility] Comment on above: GFR Calc Estimated GFR (MDRD) Non-Af Amer 23 mL/min >60 [facility] Comment on above: Non- GFR Calc Platelets bldOrdered By: Dr. Corral on 11-08-2022 Platelets (Bld) [#/Vol] 164 10*3/uL 150-450 [facility] Serum or plasma albumin addie urement (mass/volume)Ordered By: Dr. Corral on 11-08-2022 Albumin [Mass/Vol] 3.3 g/dL 3.2-5.0 [facility] Serum or plasma albumin/glob ulin mass ratioOrdered By: Dr. Corral on 11-08-2022 Albumin/Globulin [Mass ratio] 0.8 {ratio} 0.9-2.4 [facility] Serum or plasma calcium addie urement (mass/volume)Ordered By: Dr. Corral on 11-08-2022 Calcium [Mass/Vol] 9.6 mg/dL 8.5-10.1 [facility] Serum or plasma creatinine m easurement (mass/volume)Ordered By: Dr. Corral on 11-08-2022 Creatinine [Mass/Vol] 2.24 mg/dL 0.55-1.02 [facility] Comment on above: The validity of the calculated GFR & GFRAA in patients over 70 years has not been determined. Clinical correlation is essential. Serum or plasma urea nitroge n measurement (mass/volume)Ordered By: Dr. Corral on 11-08-2022 Urea nitrogen [Mass/Vol] 40 mg/dL 7-18 [facility] Thin prep Papanicolaou smear with manual screeningOrdered By: Dr. Corral on 11-08-2022 Thin prep Papanicolaou smear with manual screening 16 U/L 15-37 [facility] Thin prep Papanicolaou smear with manual screening 2 5-15 [facility] Basophil percentageOrdered B y: Dr. Corral on 11-03-2022 Creatinine [Mass/Vol] 1.8 mg/dL 0.55-1.02 [facility] Laboratory - Chemistry and C hemistry - challengeOrdered By: Dr. Corral on 11-03-2022 GFR/1.73 sq M.predicted among non-blacks MDRD (S/P/Bld) [Vol rate/Area] 36.0000 mL/min/{1.73_m2} >60 [facility] No Panel InformationOrdered By: Dr. Corral on 08-31-2022 Free Lambda Light Chains, Quant 26.2 mg/L 5.7-26.3 [facility] Serum immunoglobulin kappa l ight chains/immunoglobulin lambda light chains mass ratioOrdered By: Dr. Corral on 08-31-2022 Immunoglobulin light chains.kappa/Immunoglobu nisa light chains.lambda (S) [Mass ratio] 3.25 0.26-1.65 [facility] Comment on above: Performed at: [place] [id number] Director: Joe Olivier PhD, Phone: [phone] Serum or plasma immunoglobul in kappa light chains measurement (mass/volume)Ordered By: Dr. Corral on 08-31-2022 Immunoglobulin light chains.kappa [Mass/Vol] 85.2 mg/L 3.3-19.4 [facility] Laboratory - Hematology and Cell countson 08-09-2022 HbA1c (Bld) [Mass fraction] 5.3 % 4.2-6.3 [facility] DEMARCUS SCREENING W TOMOon 06-05 [facility] Iron measurement (mass/mass) on 03-31-2021 Iron (Unsp spec) [Mass/Mass] 73 ug/dL 50-170 [facility] Laboratory - Hematology and Cell countson 03-31-2021 Anisocytosis Ql (Bld) RARE [facility] No Panel Informationon 03-31 Total Iron Binding Capacity 243 ug/dL 250-450 [facility] RARE [facility] Serum or plasma ferritin vanita surement (mass/volume)on 03-31-2021 Ferritin [Mass/Vol] 1225 ng/mL 8-252 [facility] Serum or plasma iron saturat ion measurement (mass fraction)on 03-31-2021 Iron saturation [Mass fraction] 30.0 % 15.0-55.0 [facility] Blood manual differential co mment interpretation (narrative result)on 03-02-2021 Manual differential comment Rodrick (Bld) [Interp] SCANNED [facility] Laboratory - Microbiology an d Antimicrobial susceptibilityon 02-23-2021 Bacteria identified Cx Nom (Bld) No growth in 5 days. [facility] Culture, urineon 02-18-2021 Bacteria identified Cx Nom (U) Mixed Gram Pos & Gram Neg Org [facility] Basophil percentageon 2020 Basophil percentage 0-5 SEEN /hpf 0-5 [facility] Bilirubin Test strip Ql (U)o n 02-16-2021 Bilirubin Ql (U) Negative Negative [facility] Culture, urineon 02-16-2021 Bacteria identified Cx Nom (U) Mixed Gram Pos & Gram Neg Org Abnormal [facility] Hyaline casts LM.LPF (Urine sed) [#/Area]on 02-16-2021 Hyaline casts (Urine sed) [#/Area] 10 /[LPF] 0-5 [facility] Hypochromatic red blood cell detectionon 02-16-2021 Hypochromia Ql (Bld) 2+ [facility] Ketones Test strip Ql (U)on 02-16-2021 Ketones Ql (U) Negative Negative [facility] Laboratory - Microbiology an d Antimicrobial susceptibilityon 02-16-2021 Bacteria identified Cx Nom (Bld) No growth in 5 days. [facility] Bacteria identified Cx Nom (Bld) No growth in 5 days. [facility] Mucus LM Ql (Urine sed)on Mucus Ql (Urine sed) 1+ /hpf [facility] Nitrite Test strip Ql (U)on 02-16-2021 Nitrite Ql (U) Negative Negative [facility] No Panel Informationon 02-16 No growth in 5 days. [facility] No growth in 5 days. [facility] Protein Test strip Ql (U)on 02-16-2021 Protein Ql (U) 30 mg/dl High Negative [facility] Squamous epithelial cells de tection in urine sediment by light microscopyon 02-16-2021 Epithelial cells.squamous LM Ql (Urine sed) 0 SEEN /hpf 5-10 [facility] Urine blood detectionon 01-28 RBC Ql (U) Negative Negative [facility] RBC Ql (U) 0 SEEN /hpf 0-5 [facility] Urine clarityon 02-16-2021 Clarity (U) Clear Clear [facility] Urine color determinationon 02-16-2021 Color (U) Yellow Yellow [facility] Urine glucose detectionon Glucose Ql (U) Normal mg/dl Normal [facility] Urine leukocyte esterase det ection by dipstickon 02-16-2021 Leukocyte esterase Test strip Ql (U) 25 /ul High Negative [facility] Urine pHon 02-16-2021 pH (U) 5.0 [pH] 5.0 - 8.0 [facility] Urine sediment bacteria coun t by microscopy (number/high power field)on 02-16-2021 Bacteria LM.HPF (Urine sed) [#/Area] RARE /hpf None Seen [facility] Urine specific gravity measu rementon 02-16-2021 Specific gravity (U) [Rel density] 1.020 1.002-1.03 0 [facility] Urobilinogen Auto test strip Ql (U)on 02-16-2021 Urobilinogen Ql (U) 1 mg/dl High Normal [facility] Blood band neutrophil count as percentage of total leukocyteson 02-09-2021 Band form neutrophils/100 WBC (Bld) 2 % 0-5 [facility] Blood eosinophils/100 leukoc yteson 02-09-2021 Eosinophils/100 WBC (Bld) 1 % 0-5 [facility] Blood lymphocytes/100 leukoc yteson 02-09-2021 Lymphocytes/100 WBC (Bld) 22 % 19-41 [facility] Blood monocytes/100 leukocyt eson 02-09-2021 Monocytes/100 WBC (Bld) 11 % High 0-10 [facility] Blood platelet adequacy dete ction by light microscopyon 02-09-2021 Platelets LM Ql (Bld) ADEQUATE ADEQ [facility] Blood segmented neutrophils/ 100 leukocyteson 02-09-2021 Segmented neutrophils/100 WBC (Bld) 62 % 47-70 [facility] Laboratory - Hematology and Cell countson 02-09-2021 Myelocytes/100 WBC (Bld) 2 % High 0-0 [facility] No Panel Informationon 02-09 2 % High 0-0 [facility] RBC morphologyon 02-09-2021 RBC morphology finding Nom (Bld) NORM C+C NORMAL NORM C&C [facility] Review by pathologiston 01-27 Pathologist review Rodrick (Unsp spec) [Interp] Reviewed [facility] Comment on above: Previous reported re sult: Jerica soto Edited by: REX on 02/10/21:1352Neutrophilic left shift.Macrocytic anemia.Clinical correlation necessary.Erik Garvin M.D. 02/10/21 AMENDED REPORT 02/10/21 1352 PATH REV previously reported as: Jerica soto Total cell counton Cells counted Molgen (Bld/Tiss) [#] 100 MANUAL DIFF [facility] Macrocytes detectionon 02-02 Macrocytes Ql (Bld) 1+ [facility] Basophil percentageon 2020 Basophil percentage 3.3 mg/dL 2.5-4.9 [facility] Laboratory - Chemistry and C hemistry - challengeon 01-26-2021 Magnesium [Mass/Vol] 1.1 mg/dL Low 1.6-2.6 [facility] No Panel Informationon 01-26 Reactive Lymphocytes 2+ [facility] 2+ [facility] 1.1 mg/dL Low 1.6-2.6 [facility] Potassiumon 01-26-2021 Potassium [Mass/Vol] 3.3 mg/dL 2.5-4.9 [facility] Thin prep Papanicolaou smear with manual screeningon 01-26-2021 Thin prep Papanicolaou smear with manual screening 1+ [facility] Stool gastrointestinal hemog lobin detection by immunologic methodon 01-13-2021 Lower GI hemoglobin IA Ql (Stl) [facility] Albumin Elph [Mass/Vol]on Albumin [Mass/Vol] 3.6 g/dL 2.9-4.4 [facility] Interpretation of serum or p lasma protein pattern by immunofixation (narrative resulton 01-12-2021 Protein Fractions Immunofixation Rodrick [Interp] 0.6 g/dL Not Observed [facility] No Panel Informationon 01-12 Addendum Document Comment . [facility] Comment on above: Protein electrophore sis scan will follow via computer,mail, or garden labourer delivery. Serum [id number] measu rement by electrophoresison 01-12-2021 Alpha 1 globulin Elph [Mass/Vol] 0.4 g/dL 0.0-0.4 [facility] Alpha 1 globulin Elph [Mass/Vol] 0.9 g/dL 0.4-1.0 [facility] Serum or plasma IgA measurem ent (mass/volume)on 01-12-2021 IgA [Mass/Vol] 241 mg/dL 87-352 [facility] Serum or plasma IgG measurem ent (mass/volume)on 01-12-2021 IgG [Mass/Vol] 1817 mg/dL [id number] [facility] Serum or plasma IgM measurem ent (mass/volume)on 01-12-2021 IgM [Mass/Vol] 83 mg/dL 26-217 [facility] Serum or plasma beta globuli n measurement by electrophoresis (mass/volume)on 01-12-2021 Beta globulin Elph [Mass/Vol] 1.2 g/dL 0.7-1.3 [facility] Serum or plasma gamma globul in measurement by electrophoresis (mass/volume)on 01-12-2021 Gamma globulin Elph [Mass/Vol] 1.8 g/dL 0.4-1.8 [facility] Serum or plasma immunoelectr ophoresis interpretation (nominal result)on 01-12-2021 Interpretation IEP [Interp] Comment . [facility] Comment on above: Immunofixation shows IgG monoclonal protein with lambdalight chain specificity. Thin prep Papanicolaou smear with manual screeningon 01-12-2021 Thin prep Papanicolaou smear with manual screening 0.9 0.7-1.7 [facility] Total protein bloodon 2020 Protein [Mass/Vol] 7.9 g/dL 6.0-8.5 [facility] No Panel Informationon 01-04 CA 125 Antigen Serial Monitor Not Reportable [facility] Not Reportable [facility] Teardrop cell detectionon Dacrocytes LM Ql (Bld) 1+ [facility] Glucose,Bedsideon 09-25-2020 Glucose [Mass/Vol] 94 mg/dL Normal 70-100 [facility] Comment on above: Result Comment: Test performed by glucose meter. Results may be 10%-15% lower than serum/plasma values. (CLIA ID [id number]) Performed By: #### B GLU #### [facility] [employer] [facility] [address] [place] [address] [id number] 09-25-2020 SARS-CoV-2 SARS-CoV-2 --> Statu s: F Not Detected. Expected Result: Not Detected _ Real-time, RT-PCR performed on the [employer] by the [facility] Negative results do not preclude SARS-CoV-2 infection and should not be used as the sole basis for treatment or other patient management decisions. This assay was developed and its performance characteristics determined by the [facility]. The [place] Food and Drug Administration has not approved or cleared this test; however, FDA clearance or approval is not currently required for clinical use. Expected Result: Not Detected _ Real-time, RT-PCR performed on the [employer] by the [facility] Negative results do not preclude SARS-CoV-2 infection and should not be used as the sole basis for treatment or other patient management decisions. This assay was developed and its performance characteristics determined by the [facility]. The [place]. Food and Drug Administration has not approved or cleared this test; however, FDA clearance or approval is not currently required for clinical use. Normal [facility] Comment on above: Performed By: #### C RTUR, OSMUR, NAURR #### [facility] [employer] [facility] [address] [place] [address] Zinc, Serumon 09-25-2020 Zinc, Serum 61.8 ug/dL Normal 60.0-120.0 [facility] Comment on above: Result Comment: INTE RPRETIVE [...] developed and its performance characteristics determined by [employer]. It has not been cleared or approved by the [place] Food and Drug Administration. This test was performed in a CLIA certified laboratory and is intended for clinical purposes. Performed By: [employer] [address] [place] [id number] [employer] Leader: Francie Kumar MD Performed By: #### B GLU #### [address] [place], [place] Basic Metabolic Panelon 08-31 Calcium [Mass/Vol] 8.6 mg/dL Normal 8.4-10.4 [facility] Comment on above: Performed By: #### C ASHLEY GARCIA, NAURR #### [address] [address] [place], [place] Glucose [Mass/Vol] 122 mg/dL High 70-100 [facility] Comment on above: Performed By: #### C ASHLEY GARCIA, NAURR #### [address] [address] [place], [place] Urea nitrogen [Mass/Vol] 30 mg/dL High 7-20 [facility] Comment on above: Performed By: #### C ASHLEY GARCIA, NAURR #### [address] [address] [address] [place], [place] Anion gap [Moles/Vol] 10 mmol/L Normal 3-13 [facility] Comment on above: Performed By: #### C ASHLEY GARCIA, NAURR #### [address] [address] [address] [place], [place] CO2 [Moles/Vol] 17 mmol/L Low 22-30 [facility] Comment on above: Performed By: #### C ASHLEY GARCIA NAURR #### [address] Creatinine [Mass/Vol] 1.14 mg/dL Normal 0.52-1.25 [facility] Comment on above: Performed By: #### C ASHLEY GARCIA NAURR #### [address] GFR/1.73 sq M predicted among blacks MDRD (S/P/Bld) [Vol rate/Area] 58.5 mL/min/{1.73_m2} Abnormal >60 [facility] Comment on above: Performed By: #### C ASHLEY GARCIA NAURR #### [address] GFR/1.73 sq M predicted among non-blacks MDRD (S/P/Bld) [Vol rate/Area] 50.5 mL/min/{1.73_m2} Abnormal >60 [facility] Comment on above: Result Comment: KDIG O [...] By: #### C ASHLEY GARCIA NAJENNYFER #### [address] Chloride [Moles/Vol] 108 mmol/L High 98-107 [facility] Comment on above: Performed By: #### C ASHLEY GARCIA, NAURR #### [address] [address] [address] [place], [place] Potassium [Moles/Vol] 3.5 mmol/L Normal 3.5-5.1 [facility] Comment on above: Performed By: #### C ASHLEY GARCIA, NAURR #### [address] [address] [address] [place], [place] Sodium [Moles/Vol] 135 mmol/L Normal 135-145 [facility] Comment on above: Performed By: #### C ASHLEY GARCIA, NAURR #### [address] [address] [address] [place], [place] Ferritinon 09-24-2020 Ferritin [Mass/Vol] 1370 ng/mL High 8-252 [facility] Comment on above: Performed By: #### C ASHLEY GARCIA, NAURR #### [address] [address] [address] [place], [place] Glucose,Bedsideon 09-24-2020 Glucose [Mass/Vol] 114 mg/dL High 70-100 [facility] Comment on above: Result Comment: Test performed by glucose meter. Results may be 10%-15% lower than serum/plasma values. (CLIA ID [id number]) Performed By: #### C ASHLEY GARCIA, NAURR #### [address] [address] [address] [place], [place] Glucose [Mass/Vol] 120 mg/dL High 70-100 [facility] Comment on above: Result Comment: Test performed by glucose meter. Results may be 10%-15% lower than serum/plasma values. (CLIA ID [id number]) Performed By: #### M G3, PHOS3, BMP3, HEMDF #### [address] [address] [address] [place], [place] Hemogram w/ Autodiffon 09-24 Abs Baso Cnt 0.0 10*3/uL Normal 0.0-0.2 [facility] Comment on above: Performed By: #### C RTGUSTAVO, OSMGUSTAVO, NAURR #### [facility] [address] [place], [place] Abs Neutrophile Cnt 9.9 10*3/uL High 1.8-7.0 [facility] Comment on above: Performed By: #### C RTGUSTAVO, OSMGUSTAVO, NAURR #### [address] [address] [address] [place], [place] Basophils/100 WBC (Bld) 0.1 % Normal 0.0-2.0 [facility] Comment on above: Performed By: #### C RTGUSTAVO, OSMUR, NAURR #### [address] [address] [address] [place], [place] Eosinophils (Bld) [#/Vol] 0.4 10*3/uL Normal 0.0-0.5 [facility] Comment on above: Performed By: #### C RTGUSTAVO, OSMGUSTAVO, NAURR #### [address] [address] [address] [place], [place] Eosinophils/100 WBC (Bld) 3.0 % Normal 1.0-6.0 [facility] Comment on above: Performed By: #### C RTGUSTAVO, OSMGUSTAVO, NAURR #### [address] [address] [address] [place], [place] Erythrocyte distribution width (RBC) [Ratio] 19.0 % High 11.5-14.5 [facility] Comment on above: Performed By: #### C RTGUSTAVO, OSMUR, NAURR #### [address] [address] [address] [place], [place] Granulocytes/100 WBC (Bld) 81.6 % High 40.0-80.0 [facility] Comment on above: Performed By: #### C RTGUSTAVO, OSMGUSTAVO, NAURR #### [address] [address] [address] [place], [place] Hematocrit (Bld) [Volume fraction] 24.5 % Low 35.0-47.0 [facility] Comment on above: Performed By: #### C RTGUSTAVO, OSMUR, NAURR #### [address] [address] [address] [place], [place] Hemoglobin (Bld) [Mass/Vol] 7.9 g/dL Low 11.7-16.0 [facility] Comment on above: Performed By: #### C ASHLEY GARCIA, NAURR #### [facility] [address] [place], [place] Lymphocytes (Bld) [#/Vol] 0.9 10*3/uL Low 1.0-4.3 [facility] Comment on above: Performed By: #### C ASHLEY GARCIA, NAURR #### [address] [address] [address] [place], [place] Lymphocytes/100 WBC (Bld) 7.2 % Low 20.0-40.0 [facility] Comment on above: Performed By: #### C ASHLEY GARCIA, NAURR #### [address] [address] [address] [place], [place] MCH (RBC) [Entitic mass] 31.5 pg Normal 26.0-34.0 [facility] Comment on above: Performed By: #### C ASHLEY GARCIA, NAURR #### [address] [address] [address] [place], [place] MCHC (RBC) [Mass/Vol] 32.2 % Normal 32.0-36.0 [facility] Comment on above: Performed By: #### C JOSE, ASHLEY, NAURR #### [address] [address] [address] [place], [place] MCV (RBC) [Entitic vol] 98.1 fL High 79.0-98.0 [facility] Comment on above: Performed By: #### C JOSE, ASHLEY, NAURR #### [address] [address] [address] [place], [place] Monocytes (Bld) [#/Vol] 1.0 10*3/uL High 0.0-0.8 [facility] Comment on above: Performed By: #### C RTGUSTAVO, OSMGUSTAVO, NAURR #### [address] [address] [address] [place], [place] Monocytes/100 WBC (Bld) 8.1 % Normal 2.0-10.0 [facility] Comment on above: Performed By: #### C ASHLEY GARCIA, NAURR #### [address] [address] [address] [place], [place] Platelet mean volume (Bld) [Entitic vol] 11.3 fL High 7.4-10.4 [facility] Comment on above: Performed By: #### C ASHLEY GARCIA, NAURR #### [address] [address] [place], [place] Platelets (Bld) [#/Vol] 137 10*3/uL Low 140-440 [facility] Comment on above: Performed By: #### C ASHLEY GARCIA, NAURR #### [address] [address] [address] [place], [place] RBC (Bld) [#/Vol] 2.50 10*6/uL Low 3.80-5.20 [facility] Comment on above: Performed By: #### C ASHLEY GARCIA, NAURR #### [address] [address] [place], [place] WBC (Bld) [#/Vol] 12.1 10*3/uL High 3.6-10.7 [facility] Comment on above: Performed By: #### C ASHLEY GARCIA, NAURR #### [address] [address] [place], [place] Iron AND TIBCon 09-24-2020 Saturation 14 % Low 15-50 [facility] Comment on above: Performed By: #### C ASHLEY GARCIA, NAURR #### [address] [address] [place], [place] Total Iron Binding Cap. 202 ug/dL Low 261-497 [facility] Comment on above: Performed By: #### C ASHLEY GARCIA, NAURR #### [address] [address] [address] [place], [place] Iron, Total 29 ug/dL Low 37-170 [facility] Comment on above: Performed By: #### C ASHLEY GARCIA, NAURR #### [address] [address] [address] [place], [place] Magnesiumon 09-24-2020 Magnesium [Mass/Vol] 2.1 mg/dL Normal 1.6-2.3 [facility] Comment on above: Performed By: #### C ASHLEY GARCIA, NAURR #### [address] [address] [address] [place], [place] Phosphoruson 09-24-2020 Phosphate [Mass/Vol] 3.2 mg/dL Normal 2.5-4.5 [facility] Comment on above: Performed By: #### C ASHLEY GARCIA, NAURR #### [address] [place], [place] Basic Metabolic Panelon 08-31 Calcium [Mass/Vol] 8.1 mg/dL Low 8.4-10.4 [facility] Comment on above: Performed By: #### M G3, PHOS3, BMP3, HEMDF #### [address] [place], [place] Anion gap [Moles/Vol] 11 mmol/L Normal 3-13 [facility] Comment on above: Performed By: #### M G3, PHOS3, BMP3, HEMDF #### [address] [place], [place] CO2 [Moles/Vol] 15 mmol/L Low 22-30 [facility] Comment on above: Performed By: #### M G3, PHOS3, BMP3, HEMDF #### [address] [place], [place] Creatinine [Mass/Vol] 1.34 mg/dL High 0.52-1.25 [facility] Comment on above: Performed By: #### M G3, PHOS3, BMP3, HEMDF #### [address] [place], [place] GFR/1.73 sq M predicted among blacks MDRD (S/P/Bld) [Vol rate/Area] 48.1 mL/min/{1.73_m2} Abnormal >60 [facility] Comment on above: Performed By: #### M G3, PHOS3, BMP3, HEMDF #### [facility] [address] [place] [address] GFR/1.73 sq M predicted among non-blacks MDRD (S/P/Bld) [Vol rate/Area] 41.5 mL/min/{1.73_m2} Abnormal >60 [facility] Comment on above: Result Comment: KDIG O [...] #### M G3, PHOS3, BMP3, HEMDF #### [facility] [address] [place], [place] Glucose [Mass/Vol] 338 mg/dL High 70-100 [facility] Comment on above: Performed By: #### M G3, PHOS3, BMP3, HEMDF #### [facility] [address] [place] [address] Urea nitrogen [Mass/Vol] 32 mg/dL High 7-20 [facility] Comment on above: Performed By: #### M G3, PHOS3, BMP3, HEMDF #### [facility] [address] [place] [address] Chloride [Moles/Vol] 105 mmol/L Normal 98-107 [facility] Comment on above: Performed By: #### M G3, PHOS3, BMP3, HEMDF #### [facility] [address] [place] [address] Potassium [Moles/Vol] 5.6 mmol/L High 3.5-5.1 [facility] Comment on above: Result Comment: Slig htly hemolysed, interpret with caution. Performed By: #### M G3, PHOS3, BMP3, HEMDF #### [facility] [address] [place], [place] Sodium [Moles/Vol] 131 mmol/L Low 135-145 [facility] Comment on above: Performed By: #### M G3, PHOS3, BMP3, HEMDF #### [facility] [address] [place], [place] Clostridium difficile PCRon 09-23-2020 Clostridium difficile [...] suggest a new specimen be submitted. Normal [facility] Comment on above: Performed By: #### C RTUR, AHSLEY, NAURR #### [facility] [address] [place], [place] Hemogram w/ Autodiffon 09-23 Abs Baso Cnt 0.1 10*3/uL Normal 0.0-0.2 [facility] Comment on above: Performed By: #### M G3, PHOS3, BMP3, HEMDF #### [facility] [address] [place], [place] Abs Neutrophile Cnt 10.7 10*3/uL High 1.8-7.0 [facility] Comment on above: Performed By: #### M G3, PHOS3, BMP3, HEMDF #### [facility] [address] [place], [place] Basophils/100 WBC (Bld) 0.6 % Normal 0.0-2.0 [facility] Comment on above: Performed By: #### M G3, PHOS3, BMP3, HEMDF #### [facility] [address] [place], [place] Eosinophils (Bld) [#/Vol] 0.3 10*3/uL Normal 0.0-0.5 [facility] Comment on above: Performed By: #### M G3, PHOS3, BMP3, HEMDF #### [address] [address] [place], [place] Eosinophils/100 WBC (Bld) 2.5 % Normal 1.0-6.0 [facility] Comment on above: Performed By: #### M G3, PHOS3, BMP3, HEMDF #### [address] [place], [place] Erythrocyte distribution width (RBC) [Ratio] 20.2 % High 11.5-14.5 [facility] Comment on above: Performed By: #### M G3, PHOS3, BMP3, HEMDF #### [address] [place], [place] Granulocytes/100 WBC (Bld) 81.6 % High 40.0-80.0 [facility] Comment on above: Performed By: #### M G3, PHOS3, BMP3, HEMDF #### [address] [place], [place] Hematocrit (Bld) [Volume fraction] 25.4 % Low 35.0-47.0 [facility] Comment on above: Performed By: #### M G3, PHOS3, BMP3, HEMDF #### [address] [place], [place] Hemoglobin (Bld) [Mass/Vol] 8.1 g/dL Low 11.7-16.0 [facility] Comment on above: Performed By: #### M G3, PHOS3, BMP3, HEMDF #### [address] [place], [place] Lymphocytes (Bld) [#/Vol] 1.1 10*3/uL Normal 1.0-4.3 [facility] Comment on above: Performed By: #### M G3, PHOS3, BMP3, HEMDF #### [address] [place] [address] Lymphocytes/100 WBC (Bld) 8.3 % Low 20.0-40.0 [facility] Comment on above: Performed By: #### Arden G3, PHOS3, BMP3, HEMDF #### [address] [place], [place] MCH (RBC) [Entitic mass] 32.4 pg Normal 26.0-34.0 [facility] Comment on above: Performed By: #### [place] G3, PHOS3, BMP3, HEMDF #### [address] [place] MCHC (RBC) [Mass/Vol] 32.1 % Normal 32.0-36.0 [facility] Comment on above: Performed By: #### M G3, PHOS3, BMP3, HEMDF #### [address] [place], [place] MCV (RBC) [Entitic vol] 100.9 fL High 79.0-98.0 [facility] Comment on above: Performed By: #### Arden G3, PHOS3, BMP3, HEMDF #### [address] [place], [place] Monocytes (Bld) [#/Vol] 0.9 10*3/uL High 0.0-0.8 [facility] Comment on above: Performed By: #### M G3, PHOS3, BMP3, HEMDF #### [address] [address] [place] Monocytes/100 WBC (Bld) 7.0 % Normal 2.0-10.0 [facility] Comment on above: Performed By: #### Arden G3, PHOS3, BMP3, HEMDF #### [address] [place], [place] Platelet mean volume (Bld) [Entitic vol] 11.7 fL High 7.4-10.4 [facility] Comment on above: Performed By: #### M G3, PHOS3, BMP3, HEMDF #### [address] [place], [place] Platelets (Bld) [#/Vol] 144 10*3/uL Normal 140-440 [facility] Comment on above: Performed By: #### M G3, PHOS3, BMP3, HEMDF #### [address] [place], [place] RBC (Bld) [#/Vol] 2.52 10*6/uL Low 3.80-5.20 [facility] Comment on above: Performed By: #### M G3, PHOS3, BMP3, HEMDF #### [facility] [address] [place], [place] WBC (Bld) [#/Vol] 13.1 10*3/uL High 3.6-10.7 [facility] Comment on above: Performed By: #### M G3, PHOS3, BMP3, HEMDF #### [address] [place], [place] Magnesiumon 09-23-2020 Magnesium [Mass/Vol] 2.0 mg/dL Normal 1.6-2.3 [facility] Comment on above: Result Comment: Slig htly hemolysed, interpret with caution. Performed By: #### M G3, PHOS3, BMP3, HEMDF #### [address] [place], [place] Magnesium [Mass/Vol] 2.9 mg/dL High 1.6-2.3 [facility] Comment on above: Result Comment: Slig htly hemolysed, interpret with caution. Performed By: #### M G3, PHOS3, BMP3, HEMDF #### [address] [place], [place] Phosphoruson 09-23-2020 Phosphate [Mass/Vol] 7.3 mg/dL High 2.5-4.5 [facility] Comment on above: Result Comment: Slig htly hemolysed, interpret with caution. Performed By: #### M G3, PHOS3, BMP3, HEMDF #### [facility] [address] [place], [place] Renal Functionon 09-23-2020 Calcium [Mass/Vol] 8.6 mg/dL Normal 8.4-10.4 [facility] Comment on above: Performed By: #### M G3, PHOS3, BMP3, HEMDF #### [facility] [address] [place], [place] Anion gap [Moles/Vol] 11 mmol/L Normal 3-13 [facility] Comment on above: Performed By: #### M G3, PHOS3, BMP3, HEMDF #### [facility] [address] [place], [place] CO2 [Moles/Vol] 18 mmol/L Low 22-30 [facility] Comment on above: Performed By: #### M G3, PHOS3, BMP3, HEMDF #### [facility] [address] [place], [place] Creatinine [Mass/Vol] 1.21 mg/dL Normal 0.52-1.25 [facility] Comment on above: Performed By: #### M G3, PHOS3, BMP3, HEMDF #### [facility] [address] [place], [place] GFR/1.73 sq M predicted among blacks MDRD (S/P/Bld) [Vol rate/Area] 54.5 mL/min/{1.73_m2} Abnormal >60 [facility] Comment on above: Performed By: #### M G3, PHOS3, BMP3, HEMDF #### [facility] [address] [place], [place] GFR/1.73 sq M predicted among non-blacks MDRD (S/P/Bld) [Vol rate/Area] 47.0 mL/min/{1.73_m2} Abnormal >60 [facility] Comment on above: Result Comment: KDIG O [...] #### M G3, PHOS3, BMP3, HEMDF #### [facility] [address] [place] [address] Glucose [Mass/Vol] 131 mg/dL High 70-100 [facility] Comment on above: Performed By: #### M G3, PHOS3, BMP3, HEMDF #### [facility] [address] [place], [place] Phosphate [Mass/Vol] 3.9 mg/dL Normal 2.5-4.5 [facility] Comment on above: Performed By: #### M G3, PHOS3, BMP3, HEMDF #### [facility] [address] [place], [place] Urea nitrogen [Mass/Vol] 32 mg/dL High 7-20 [facility] Comment on above: Performed By: #### M G3, PHOS3, BMP3, HEMDF #### [facility] [address] [place] Albumin [Mass/Vol] 2.9 g/dL Low 3.5-5.0 [facility] Comment on above: Performed By: #### M G3, PHOS3, BMP3, HEMDF #### [facility] [address] [place], [place] Chloride [Moles/Vol] 111 mmol/L High 98-107 [facility] Comment on above: Performed By: #### M G3, PHOS3, BMP3, HEMDF #### [facility] [address] [place], [place] Potassium [Moles/Vol] 3.3 mmol/L Low 3.5-5.1 [facility] Comment on above: Result Comment: Slig htly hemolysed, interpret with caution. Performed By: #### M G3, PHOS3, BMP3, HEMDF #### [facility] [address] [place] Sodium [Moles/Vol] 140 mmol/L Normal 135-145 [facility] Comment on above: Performed By: #### M G3, PHOS3, BMP3, HEMDF #### [address] [place], [place] Basic Metabolic Panelon 02- Calcium [Mass/Vol] 9.1 mg/dL Normal 8.4-10.4 [facility] Comment on above: Performed By: #### C ASHLEY GARCIA, NAURR #### [address] [place], [place] Anion gap [Moles/Vol] 8 mmol/L Normal 3-13 [facility] Comment on above: Performed By: #### C ASHLEY GARCIA, NAURR #### [address] [place] CO2 [Moles/Vol] 20 mmol/L Low 22-30 [facility] Comment on above: Performed By: #### C ASHLEY GARCIA, NAURR #### [address] [place], [place] Creatinine [Mass/Vol] 1.29 mg/dL High 0.52-1.25 [facility] Comment on above: Performed By: #### C ASHLEY GARCIA, NAURR #### [address] [place] GFR/1.73 sq M predicted among blacks MDRD (S/P/Bld) [Vol rate/Area] 50.4 mL/min/{1.73_m2} Abnormal >60 [facility] Comment on above: Performed By: #### C RTGUSTAVO, OSMGUSTAVO, NAURR #### [address] [place], [place] GFR/1.73 sq M predicted among non-blacks MDRD (S/P/Bld) [Vol rate/Area] 43.5 mL/min/{1.73_m2} Abnormal >60 [facility] Comment on above: Result Comment: KDIG O [...] By: #### C ASHLEY GARCIA NAURR #### [address] Glucose [Mass/Vol] 124 mg/dL High 70-100 [facility] [facility] Comment on above: Performed By: #### C ASHLEY GARCIA, NAURR #### [address] [address] [place], [place] Urea nitrogen [Mass/Vol] 35 mg/dL High 7-20 [facility] Comment on above: Performed By: #### C ASHLEY GARCIA, NAURR #### [address] Chloride [Moles/Vol] 111 mmol/L High 98-107 [facility] Comment on above: Performed By: #### C ASHLEY GARICA, NAURR #### [address] [address] [place], [place] Potassium [Moles/Vol] 2.9 mmol/L Low 3.5-5.1 [facility] Comment on above: Performed By: #### C ASHLEY GARCIA, NAURR #### [address] Sodium [Moles/Vol] 139 mmol/L Normal 135-145 [facility] Comment on above: Performed By: #### C RTASHLEY CHEN, NAURR #### [address] [address] [place], [place] CR Abdomen APon 09-22-2020 CR Abdomen AP Patient Name: BRITTA YOUNG Diagnostic Radiology ACCESSION EXAM DATE/TIME PROCEDURE ORDERING PROVIDER [id number] 09/22/2020 07:54 EST CR Abdomen AP MD SALMON KEVIN CPT code 91340 Reason For Exam (CR Abdomen AP) ileus [...] Transcribed Date and Time: 09/22/2020 7:52 Normal [facility] Hemogram w/ Autodiffon 09-22 Abs Baso Cnt 0.0 10*3/uL Normal 0.0-0.2 [facility] Comment on above: Performed By: #### C ASHLEY GARCIA NAURR #### [address] [address] Abs Neutrophile Cnt 11.9 10*3/uL High 1.8-7.0 [facility] Comment on above: Performed By: #### C ASHLEY GARCIA NAURR #### [address] [address] Basophils/100 WBC (Bld) 0.2 % Normal 0.0-2.0 [facility] Comment on above: Performed By: #### C ASHLEY GARCIA NAURR #### [facility] [address] [place], [place] Eosinophils (Bld) [#/Vol] 0.2 10*3/uL Normal 0.0-0.5 [facility] Comment on above: Performed By: #### C ASHLEY GARCIA, NAURR #### [address] [address] [place] [place], [place] Eosinophils/100 WBC (Bld) 1.3 % Normal 1.0-6.0 [facility] Comment on above: Performed By: #### C ASHLEY GARCIA NAURR #### [address] [address] [place] [place], [place] Erythrocyte distribution width (RBC) [Ratio] 19.6 % High 11.5-14.5 [facility] Comment on above: Performed By: #### C ASHLEY GARCIA, NAURR #### [address] [address] [place] [place], [place] Granulocytes/100 WBC (Bld) 84.2 % High 40.0-80.0 [facility] Comment on above: Performed By: #### C ASHLEY GARCIA, NAURR #### [address] [address] [place] [place], [place] Hematocrit (Bld) [Volume fraction] 27.6 % Low 35.0-47.0 [facility] Comment on above: Performed By: #### C ASHLEY GARCIA, NAURR #### [address] [address] [place] [place], [place] Hemoglobin (Bld) [Mass/Vol] 8.9 g/dL Low 11.7-16.0 [facility] Comment on above: Performed By: #### C ASHLEY GARCIA, NAURR #### [address] [address] [place] [place], [place] Lymphocytes (Bld) [#/Vol] 1.0 10*3/uL Normal 1.0-4.3 [facility] Comment on above: Performed By: #### C ASHLEY GARCIA, NAURR #### [address] [address] [place] [place], [place] Lymphocytes/100 WBC (Bld) 6.8 % Low 20.0-40.0 [facility] Comment on above: Performed By: #### C ASHLEY GARCIA, NAURR #### [address] [address] [place] [place], [place] MCH (RBC) [Entitic mass] 31.5 pg Normal 26.0-34.0 [facility] Comment on above: Performed By: #### C ASHLEY GARCIA, NAURR #### [address] [address] [place] [place], [place] MCHC (RBC) [Mass/Vol] 32.3 % Normal 32.0-36.0 [facility] Comment on above: Performed By: #### C ASHLEY GARCIA, NAURR #### [address] [address] [place] [place], [place] MCV (RBC) [Entitic vol] 97.7 fL Normal 79.0-98.0 [facility] Comment on above: Performed By: #### C ASHLEY GARCIA, NAURR #### [address] [address] [place] [place], [place] Monocytes (Bld) [#/Vol] 1.1 10*3/uL High 0.0-0.8 [facility] Comment on above: Performed By: #### C RTGUSTAVO, OSMGUSTAVO, NAURR #### [address] [address] [place] [place], [place] Monocytes/100 WBC (Bld) 7.5 % Normal 2.0-10.0 [facility] Comment on above: Performed By: #### C RTASHLEY CHEN, NAURR #### [address] [address] [place] [place], [place] Platelet mean volume (Bld) [Entitic vol] 10.6 fL High 7.4-10.4 [facility] Comment on above: Performed By: #### C RTASHLEY CHEN, NAURR #### [address] [address] [place] [place], [place] Platelets (Bld) [#/Vol] 162 10*3/uL Normal 140-440 [facility] Comment on above: Performed By: #### C ASHLEY GARCIA, NAURR #### [address] [address] [place] [place], [place] RBC (Bld) [#/Vol] 2.82 10*6/uL Low 3.80-5.20 [facility] Comment on above: Performed By: #### C ASHLEY GARCIA, NAURR #### [address] [address] [place], [place] WBC (Bld) [#/Vol] 14.1 10*3/uL High 3.6-10.7 [facility] Comment on above: Performed By: #### C ASHLEY GARCIA NAURR #### [address] [address] [place] [place], [place] Magnesiumon 09-22-2020 Magnesium [Mass/Vol] 2.1 mg/dL Normal 1.6-2.3 [facility] Comment on above: Performed By: #### C ASHLEY GARICA NAURR #### [address] [address] [place] [place], [place] Phosphoruson 09-22-2020 Phosphate [Mass/Vol] 4.6 mg/dL High 2.5-4.5 [facility] Comment on above: Performed By: #### C ASHLEY GARCIA, NAURR #### [address] [address] [place] [place], [place] Basic Metabolic Panelon 08-31 Calcium [Mass/Vol] 8.7 mg/dL Normal 8.4-10.4 [facility] Comment on above: Performed By: #### B GLU #### [address] [address] [place] [place], [place] Glucose [Mass/Vol] 112 mg/dL High 70-100 [facility] Comment on above: Performed By: #### B GLU #### [address] [address] [place] [place], [place] Urea nitrogen [Mass/Vol] 27 mg/dL High 7-20 [facility] Comment on above: Performed By: #### B GLU #### [facility] [address] [place], [place] Anion gap [Moles/Vol] 9 mmol/L Normal 3-13 [facility] Comment on above: Performed By: #### B GLU #### [facility] [address] [place], [place] CO2 [Moles/Vol] 21 mmol/L Low 22-30 [facility] Comment on above: Performed By: #### B GLU #### [facility] [address] [place], [place] Creatinine [Mass/Vol] 1.32 mg/dL High 0.52-1.25 [facility] Comment on above: Performed By: #### B GLU #### [facility] [address] [place], [place] GFR/1.73 sq M predicted among blacks MDRD (S/P/Bld) [Vol rate/Area] 49.0 mL/min/{1.73_m2} Abnormal >60 [facility] Comment on above: Performed By: #### B GLU #### [facility] [address] [place], [place] GFR/1.73 sq M predicted among non-blacks MDRD (S/P/Bld) [Vol rate/Area] 42.3 mL/min/{1.73_m2} Abnormal >60 [facility] Comment on above: Result Comment: KDIG O [...] secretion. Performed By: #### B GLU #### [facility] [address] [place], [place] Chloride [Moles/Vol] 111 mmol/L High 98-107 [facility] Comment on above: Performed By: #### B GLU #### [facility] [address] [place], [place] Potassium [Moles/Vol] 3.2 mmol/L Low 3.5-5.1 [facility] Comment on above: Performed By: #### B GLU #### [facility] [address] [place], [place] Sodium [Moles/Vol] 141 mmol/L Normal 135-145 [facility] Comment on above: Performed By: #### B GLU #### [facility] [address] [place], [place] CR Abdomen APon 09-21-2020 CR Abdomen AP Patient Name: BRITTA YOUNG Diagnostic Radiology ACCESSION EXAM DATE/TIME PROCEDURE ORDERING PROVIDER [id number] 09/21/2020 06:25 EST CR Abdomen AP MD SALMON KEVIN CPT code 03752 Reason For Exam (CR Abdomen AP) ileus [...] Transcribed Date and Time: 09/21/2020 8:52 Normal [facility] Calcium,Ionizedon 09-21-2020 Ionized Ca,Measured 4.60 mg/dL Normal 4.30-5.20 [facility] Comment on above: Performed By: #### B GLU #### [facility] [address] [place], [place] pH, Ionized Calcium 7.51 High 7.31-7.46 [facility] Comment on above: Performed By: #### B GLU #### [facility] [address] [place], [place] Glucose,Bedsideon 09-21-2020 Glucose [Mass/Vol] 119 mg/dL High 70-100 [facility] Comment on above: Result Comment: Test performed by glucose meter. Results may be 10%-15% lower than serum/plasma values. (CLIA ID [id number]) Performed By: #### B GLU #### [facility] [address] [place], [place] Glucose [Mass/Vol] 128 mg/dL High 70-100 [facility] Comment on above: Result Comment: Test performed by glucose meter. Results may be 10%-15% lower than serum/plasma values. (CLIA ID [id number]) Performed By: #### B GLU #### [facility] [address] [place], [place] Hemogram w/ Autodiffon 09-21 Abs Baso Cnt 0.0 10*3/uL Normal 0.0-0.2 [facility] Comment on above: Performed By: #### B GLU #### [facility] [address] [place], [place] Abs Neutrophile Cnt 8.9 10*3/uL High 1.8-7.0 [facility] Comment on above: Performed By: #### B GLU #### [facility] [address] [place], [place] Basophils/100 WBC (Bld) 0.4 % Normal 0.0-2.0 [facility] Comment on above: Performed By: #### B GLU #### [facility] [address] [place] [address] Eosinophils (Bld) [#/Vol] 0.2 10*3/uL Normal 0.0-0.5 [facility] Comment on above: Performed By: #### B GLU #### [facility] [address] [place] [address] Eosinophils/100 WBC (Bld) 1.9 % Normal 1.0-6.0 [facility] Comment on above: Performed By: #### B GLU #### [facility] [address] [place] [address] Erythrocyte distribution width (RBC) [Ratio] 19.5 % High 11.5-14.5 [facility] Comment on above: Performed By: #### B GLU #### [address] [address] [place] [address] Granulocytes/100 WBC (Bld) 80.0 % Normal 40.0-80.0 [facility] Comment on above: Performed By: #### B GLU #### [facility] [address] [place] [address] Hematocrit (Bld) [Volume fraction] 25.5 % Low 35.0-47.0 [facility] Comment on above: Performed By: #### B GLU #### [facility] [address] [place] [address] Hemoglobin (Bld) [Mass/Vol] 8.2 g/dL Low 11.7-16.0 [facility] Comment on above: Performed By: #### B GLU #### [facility] [address] [place] [address] Lymphocytes (Bld) [#/Vol] 0.9 10*3/uL Low 1.0-4.3 [facility] Comment on above: Performed By: #### B GLU #### [facility] [address] [place] [address] Lymphocytes/100 WBC (Bld) 8.1 % Low 20.0-40.0 [facility] Comment on above: Performed By: #### B GLU #### [facility] [address] [place], [place] MCH (RBC) [Entitic mass] 31.4 pg Normal 26.0-34.0 [facility] Comment on above: Performed By: #### B GLU #### [facility] [address] [place], [place] MCHC (RBC) [Mass/Vol] 32.3 % Normal 32.0-36.0 [facility] Comment on above: Performed By: #### B GLU #### [address] [address] [place] [place], [place] MCV (RBC) [Entitic vol] 97.2 fL Normal 79.0-98.0 [facility] Comment on above: Performed By: #### B GLU #### [address] [address] [place] [place], [place] Monocytes (Bld) [#/Vol] 1.1 10*3/uL High 0.0-0.8 [facility] Comment on above: Performed By: #### B GLU #### [address] [address] [place] [place], [place] Monocytes/100 WBC (Bld) 9.6 % Normal 2.0-10.0 [facility] Comment on above: Performed By: #### B GLU #### [address] [address] [place] [place], [place] Platelet mean volume (Bld) [Entitic vol] 10.2 fL Normal 7.4-10.4 [facility] Comment on above: Performed By: #### B GLU #### [address] [address] [place] [place], [place] Platelets (Bld) [#/Vol] 143 10*3/uL Normal 140-440 [facility] Comment on above: Performed By: #### B GLU #### [address] [address] [address] [place], [place] RBC (Bld) [#/Vol] 2.63 10*6/uL Low 3.80-5.20 [facility] Comment on above: Performed By: #### B GLU #### [address] [address] [place] [place], [place] WBC (Bld) [#/Vol] 11.1 10*3/uL High 3.6-10.7 [facility] Comment on above: Performed By: #### B GLU #### [facility] [address] [place], [place] Hepatic Functionon 1 ALP [Catalytic activity/Vol] 51 U/L Normal 38-126 [facility] Comment on above: Performed By: #### B GLU #### [address] [address] [address] [place], [place] ALT [Catalytic activity/Vol] 13 U/L Normal 0-34 [facility] Comment on above: Result Comment: The ALT test is performed by an updated assay method. Please note that the reference intervals have been changed and are now sex specific. Performed By: #### B GLU #### [address] [address] [address] [place], [place] AST [Catalytic activity/Vol] 25 U/L Normal 15-46 [facility] Comment on above: Performed By: #### B GLU #### [address] [address] [address] [place], [place] Bilirubin [Mass/Vol] 0.6 mg/dL Normal 0.2-1.3 [facility] Comment on above: Performed By: #### B GLU #### [facility] [address] [place], [place] Protein [Mass/Vol] 6.0 g/dL Low 6.3-8.2 [facility] Comment on above: Performed By: #### B GLU #### [address] [address] [address] [place], [place] Bilirubin.direct [Mass/Vol] 0.0 mg/dL Normal 0.0-0.3 [facility] Comment on above: Performed By: #### B GLU #### [facility] [address] [place], [place] Albumin [Mass/Vol] 2.8 g/dL Low 3.5-5.0 [facility] Comment on above: Performed By: #### B GLU #### [facility] [address] [place] [address] Magnesiumon 09-21-2020 Magnesium [Mass/Vol] 1.8 mg/dL Normal 1.6-2.3 [facility] Comment on above: Performed By: #### B GLU #### [facility] [address] [place] [address] Phosphoruson 09-21-2020 Phosphate [Mass/Vol] 2.4 mg/dL Low 2.5-4.5 [facility] Comment on above: Performed By: #### B GLU #### [facility] [address] [place] [address] RF Small Bowel w/ Serial Brandon mson 09-21-2020 RF Small Bowel w/ Serial Films Patient Name: BRITTA YOUNG Fluoroscopy ACCESSION EXAM DATE/TIME PROCEDURE ORDERING PROVIDER [id number] 09/21/2020 17:01 EST RF Small Bowel w/ Serial Deangelo GARCÍA, Films JOCELYNE CPT code 26200 Reason For Exam (RF Small Bowel w/ Serial Films) ileus Report SMALL BOWEL SERIES: CLINICAL INDICATION: Abdominal distention and vomiting. TECHNIQUE: Small bowel series was performed following ingestion of barium. Fluoroscopy was not. Five images were obtained. COMPARISON: Abdomen from one day ago and CT from FINDINGS: Independent Distributor supine radiograph of the abdomen demonstrates a [...] Transcribed Date and Time: 09/21/2020 7:09 Normal [facility] Triglycerideon 09-21-2020 Triglyceride [Mass/Vol] 153 mg/dL Abnormal <150 [facility] Comment on above: Performed By: #### B GLU #### [facility] [address] [place], [place] Add on test from HISon 09-20 Add on test from HIS Rejected Normal [facility] Comment on above: Result Comment: Dupl icate Order Performed By: #### C RTGUSTAVO, ASHLEY, NAURR #### [facility] [address] [place], [place] Add on test from HIS Accepted Normal [facility] Comment on above: Result Comment: Spec imen available & acceptable for analysis. Performed By: #### M G3, PHOS3, BMP3, HEMDF #### [address] [address] [address] [place], [place] Basic Metabolic Panelon 08-31 Calcium [Mass/Vol] 8.7 mg/dL Normal 8.4-10.4 [facility] Comment on above: Performed By: #### M G3, PHOS3, BMP3, HEMDF #### [address] [address] [place], [place] Glucose [Mass/Vol] 95 mg/dL Normal 70-100 [facility] Comment on above: Performed By: #### M G3, PHOS3, BMP3, HEMDF #### [facility] [address] [place], [place] Anion gap [Moles/Vol] 7 mmol/L Normal 3-13 [facility] Comment on above: Performed By: #### M G3, PHOS3, BMP3, HEMDF #### [facility] [address] [place], [place] CO2 [Moles/Vol] 24 mmol/L Normal 22-30 [facility] Comment on above: Performed By: #### M G3, PHOS3, BMP3, HEMDF #### [address] [address] [place], [place] Creatinine [Mass/Vol] 1.83 mg/dL High 0.52-1.25 [facility] Comment on above: Performed By: #### M G3, PHOS3, BMP3, HEMDF #### [facility] [address] [place] [address] GFR/1.73 sq M predicted among blacks MDRD (S/P/Bld) [Vol rate/Area] 33.0 mL/min/{1.73_m2} Abnormal >60 [facility] Comment on above: Performed By: #### M G3, PHOS3, BMP3, HEMDF #### [facility] [address] [place] [address] GFR/1.73 sq M predicted among non-blacks MDRD (S/P/Bld) [Vol rate/Area] 28.5 mL/min/{1.73_m2} Abnormal >60 [facility] Comment on above: Result Comment: KDIG O [...] #### M G3, PHOS3, BMP3, HEMDF #### [facility] [address] [place] [address] Urea nitrogen [Mass/Vol] 34 mg/dL High 7-20 [facility] Comment on above: Performed By: #### M G3, PHOS3, BMP3, HEMDF #### [facility] [address] [place] [address] Chloride [Moles/Vol] 108 mmol/L High 98-107 [facility] Comment on above: Performed By: #### M G3, PHOS3, BMP3, HEMDF #### [facility] [address] [place] [address] Potassium [Moles/Vol] 3.4 mmol/L Low 3.5-5.1 [facility] Comment on above: Performed By: #### M G3, PHOS3, BMP3, HEMDF #### [facility] [address] [place] [address] Sodium [Moles/Vol] 139 mmol/L Normal 135-145 [facility] Comment on above: Performed By: #### M G3, PHOS3, BMP3, HEMDF #### [facility] [address] [place] [address] CR Abdomen APon 09-20-2020 CR Abdomen AP Patient Name: BRITTA YOUNG Diagnostic Radiology ACCESSION EXAM DATE/TIME PROCEDURE ORDERING PROVIDER [id number] 09/20/2020 13:59 EST CR Abdomen AP Deangelo REYNA SARAH CPT code 24304 Reason For Exam (CR Abdomen AP) NG [...] Transcribed Date and Time: 09/20/2020 2:10 Normal [facility] CR Abdomen AP Patient Name: BRITTA YOUNG Diagnostic Radiology ACCESSION EXAM DATE/TIME PROCEDURE ORDERING PROVIDER [id number] 09/20/2020 09:25 EST CR Abdomen AP MD SALMON KEVIN CPT code 74080 Reason For Exam (CR Abdomen AP) ileus [...] Transcribed Date and Time: 09/20/2020 9:57 Normal [facility] Hemogram w/ Autodiffon 09-20 Abs Baso Cnt 0.0 10*3/uL Normal 0.0-0.2 [facility] Comment on above: Performed By: #### M G3, PHOS3, BMP3, HEMDF #### [address] [place] [address] Abs Neutrophile Cnt 8.2 10*3/uL High 1.8-7.0 [facility] Comment on above: Performed By: #### M G3, PHOS3, BMP3, HEMDF #### [address] [place] [address] Basophils/100 WBC (Bld) 0.4 % Normal 0.0-2.0 [facility] Comment on above: Performed By: #### M G3, PHOS3, BMP3, HEMDF #### [address] [address] [place] [address] Eosinophils (Bld) [#/Vol] 0.3 10*3/uL Normal 0.0-0.5 [facility] Comment on above: Performed By: #### M G3, PHOS3, BMP3, HEMDF #### [facility] [address] [place] [address] Eosinophils/100 WBC (Bld) 2.7 % Normal 1.0-6.0 [facility] Comment on above: Performed By: #### M G3, PHOS3, BMP3, HEMDF #### [address] [address] [place] [address] Erythrocyte distribution width (RBC) [Ratio] 19.6 % High 11.5-14.5 [facility] Comment on above: Performed By: #### M G3, PHOS3, BMP3, HEMDF #### [address] [address] [place], [place] Granulocytes/100 WBC (Bld) 80.5 % High 40.0-80.0 [facility] Comment on above: Performed By: #### M G3, PHOS3, BMP3, HEMDF #### [address] [place], [place] Hematocrit (Bld) [Volume fraction] 25.2 % Low 35.0-47.0 [facility] Comment on above: Performed By: #### M G3, PHOS3, BMP3, HEMDF #### [address] [address] [place], [place] Hemoglobin (Bld) [Mass/Vol] 8.2 g/dL Low 11.7-16.0 [facility] Comment on above: Performed By: #### Arden G3, PHOS3, BMP3, HEMDF #### [address] [place], [place] Lymphocytes (Bld) [#/Vol] 0.9 10*3/uL Low 1.0-4.3 [facility] Comment on above: Performed By: #### M G3, PHOS3, BMP3, HEMDF #### [address] Lymphocytes/100 WBC (Bld) 8.6 % Low 20.0-40.0 [facility] Comment on above: Performed By: #### M G3, PHOS3, BMP3, HEMDF #### [address] [address] [place], [place] MCH (RBC) [Entitic mass] 31.7 pg Normal 26.0-34.0 [facility] Comment on above: Performed By: #### M G3, PHOS3, BMP3, HEMDF #### [address] [address] [place], [place] MCHC (RBC) [Mass/Vol] 32.5 % Normal 32.0-36.0 [facility] Comment on above: Performed By: #### M G3, PHOS3, BMP3, HEMDF #### [address] [place], [place] MCV (RBC) [Entitic vol] 97.3 fL Normal 79.0-98.0 [facility] Comment on above: Performed By: #### M G3, PHOS3, BMP3, HEMDF #### [address] [address] [place], [place] Monocytes (Bld) [#/Vol] 0.8 10*3/uL Normal 0.0-0.8 [facility] Comment on above: Performed By: #### M G3, PHOS3, BMP3, HEMDF #### [address] [address] [place], [place] Monocytes/100 WBC (Bld) 7.8 % Normal 2.0-10.0 [facility] Comment on above: Performed By: #### M G3, PHOS3, BMP3, HEMDF #### [address] [place], [place] Platelet mean volume (Bld) [Entitic vol] 9.8 fL Normal 7.4-10.4 [facility] Comment on above: Performed By: #### M G3, PHOS3, BMP3, HEMDF #### [address] [address] [place], [place] Platelets (Bld) [#/Vol] 151 10*3/uL Normal 140-440 [facility] Comment on above: Performed By: #### M G3, PHOS3, BMP3, HEMDF #### [address] [place], [place] RBC (Bld) [#/Vol] 2.59 10*6/uL Low 3.80-5.20 [facility] Comment on above: Performed By: #### M G3, PHOS3, BMP3, HEMDF #### [address] WBC (Bld) [#/Vol] 10.2 10*3/uL Normal 3.6-10.7 [facility] [facility] Comment on above: Performed By: #### M G3, PHOS3, BMP3, HEMDF #### [address] [place], [place] Magnesiumon 09-20-2020 Magnesium [Mass/Vol] 1.8 mg/dL Normal 1.6-2.3 [facility] Comment on above: Performed By: #### M G3, PHOS3, BMP3, HEMDF #### [address] [place], [place] Phosphoruson 09-20-2020 Phosphate [Mass/Vol] 3.0 mg/dL Normal 2.5-4.5 [facility] Comment on above: Performed By: #### M G3, PHOS3, BMP3, HEMDF #### [address] [place], [place] Basic Metabolic Panelon 08-31 Calcium [Mass/Vol] 8.7 mg/dL Normal 8.4-10.4 [facility] Comment on above: Performed By: #### M G3, PHOS3, BMP3, HEMDF #### [address] [place], [place] Glucose [Mass/Vol] 117 mg/dL High 70-100 [facility] Comment on above: Performed By: #### M G3, PHOS3, BMP3, HEMDF #### [address] [place], [place] Urea nitrogen [Mass/Vol] 42 mg/dL High 7-20 [facility] Comment on above: Performed By: #### M G3, PHOS3, BMP3, HEMDF #### [address] [place], [place] Anion gap [Moles/Vol] 9 mmol/L Normal 3-13 [facility] Comment on above: Performed By: #### M G3, PHOS3, BMP3, HEMDF #### [address] [place], [place] CO2 [Moles/Vol] 25 mmol/L Normal 22-30 [facility] Comment on above: Performed By: #### M G3, PHOS3, BMP3, HEMDF #### [address] Creatinine [Mass/Vol] 2.44 mg/dL High 0.52-1.25 [facility] Comment on above: Performed By: #### M G3, PHOS3, BMP3, HEMDF #### [address] GFR/1.73 sq M predicted among blacks MDRD (S/P/Bld) [Vol rate/Area] 23.3 mL/min/{1.73_m2} Abnormal >60 [facility] Comment on above: Performed By: #### M G3, PHOS3, BMP3, HEMDF #### [address] GFR/1.73 sq M predicted among non-blacks MDRD (S/P/Bld) [Vol rate/Area] 20.1 mL/min/{1.73_m2} Abnormal >60 [facility] Comment on above: Result Comment: KDIG O [...] #### M G3, PHOS3, BMP3, HEMDF #### [address] Chloride [Moles/Vol] 106 mmol/L Normal 98-107 [facility] Comment on above: Performed By: #### M G3, PHOS3, BMP3, HEMDF #### [address] [address] Potassium [Moles/Vol] 3.6 mmol/L Normal 3.5-5.1 [facility] Comment on above: Performed By: #### M G3, PHOS3, BMP3, HEMDF #### [facility] [address] [place] [address] Sodium [Moles/Vol] 139 mmol/L Normal 135-145 [facility] Comment on above: Performed By: #### M G3, PHOS3, BMP3, HEMDF #### [facility] [address] [place] [address] CR Abdomen APon 09-19-2020 CR Abdomen AP Patient Name: BRITTA YOUNG Diagnostic Radiology ACCESSION EXAM DATE/TIME PROCEDURE ORDERING PROVIDER [id number] 09/19/2020 11:49 EST CR Abdomen AP LAKESHA AYALA CPT code 86744 Reason For Exam (CR Abdomen AP) NG [...] Transcribed Date and Time: 09/19/2020 12:10 Normal [facility] CR Abdomen AP Patient Name: BRITTA YOUNG Diagnostic Radiology ACCESSION EXAM DATE/TIME PROCEDURE ORDERING PROVIDER [id number] 09/19/2020 08:47 EST CR Abdomen AP MD CUENCA ANDREW CPT code 69641 Reason For Exam (CR Abdomen AP) abdominal distention Report CLINICAL INFORMATION: Abdominal pain and distention. Recent surgery. Supine KUB is provided. The examination is first submitted to [facility] for interpretation on 10/01/2020. FINDINGS: Skin nerissa [...] Transcribed Date and Time: 10/01/2020 3:07 Normal [facility] Creatinine, Ur Randomon 08-31 Creatinine, Ur Random 158.3 mg/dL Normal No Range [facility] Comment on above: Performed By: #### C RTGUSTAVO, OSMGUSTAVO, NAURR #### [address] [address] [place], [place] Hemogram w/ Autodiffon 09-19 Abs Baso Cnt 0.0 10*3/uL Normal 0.0-0.2 [facility] Comment on above: Performed By: #### M G3, PHOS3, BMP3, HEMDF #### [address] [address] [place], [place] Abs Neutrophile Cnt 10.2 10*3/uL High 1.8-7.0 [facility] Comment on above: Performed By: #### M G3, PHOS3, BMP3, HEMDF #### [address] [address] [place], [place] Basophils/100 WBC (Bld) 0.2 % Normal 0.0-2.0 [facility] Comment on above: Performed By: #### M G3, PHOS3, BMP3, HEMDF #### [address] [address] [place], [place] Eosinophils (Bld) [#/Vol] 0.2 10*3/uL Normal 0.0-0.5 [facility] Comment on above: Performed By: #### M G3, PHOS3, BMP3, HEMDF #### [address] [place], [place] Eosinophils/100 WBC (Bld) 1.2 % Normal 1.0-6.0 [facility] Comment on above: Performed By: #### M G3, PHOS3, BMP3, HEMDF #### [address] [place], [place] Erythrocyte distribution width (RBC) [Ratio] 19.9 % High 11.5-14.5 [facility] Comment on above: Performed By: #### M G3, PHOS3, BMP3, HEMDF #### [address] [place], [place] Granulocytes/100 WBC (Bld) 82.1 % High 40.0-80.0 [facility] Comment on above: Performed By: #### M G3, PHOS3, BMP3, HEMDF #### [address] [place], [place] Hematocrit (Bld) [Volume fraction] 25.3 % Low 35.0-47.0 [facility] Comment on above: Performed By: #### M G3, PHOS3, BMP3, HEMDF #### [address] [place], [place] Hemoglobin (Bld) [Mass/Vol] 8.2 g/dL Low 11.7-16.0 [facility] Comment on above: Performed By: #### M G3, PHOS3, BMP3, HEMDF #### [address] [place], [place] Lymphocytes (Bld) [#/Vol] 0.8 10*3/uL Low 1.0-4.3 [facility] Comment on above: Performed By: #### M G3, PHOS3, BMP3, HEMDF #### [address] [address] [place], [place] Lymphocytes/100 WBC (Bld) 6.5 % Low 20.0-40.0 [facility] Comment on above: Performed By: #### M G3, PHOS3, BMP3, HEMDF #### [address] [place], [place] MCH (RBC) [Entitic mass] 31.5 pg Normal 26.0-34.0 [facility] Comment on above: Performed By: #### M G3, PHOS3, BMP3, HEMDF #### [facility] [address] [place], [place] MCHC (RBC) [Mass/Vol] 32.3 % Normal 32.0-36.0 [facility] Comment on above: Performed By: #### M G3, PHOS3, BMP3, HEMDF #### [address] [place], [place] MCV (RBC) [Entitic vol] 97.7 fL Normal 79.0-98.0 [facility] Comment on above: Performed By: #### M G3, PHOS3, BMP3, HEMDF #### [address] [place], [place] Monocytes (Bld) [#/Vol] 1.2 10*3/uL High 0.0-0.8 [facility] Comment on above: Performed By: #### M G3, PHOS3, BMP3, HEMDF #### [address] [place], [place] Monocytes/100 WBC (Bld) 10.0 % Normal 2.0-10.0 [facility] Comment on above: Performed By: #### M G3, PHOS3, BMP3, HEMDF #### [address] [place], [place] Platelet mean volume (Bld) [Entitic vol] 9.9 fL Normal 7.4-10.4 [facility] Comment on above: Performed By: #### M G3, PHOS3, BMP3, HEMDF #### [address] [place], [place] Platelets (Bld) [#/Vol] 154 10*3/uL Normal 140-440 [facility] Comment on above: Performed By: #### M G3, PHOS3, BMP3, HEMDF #### [address] [place], [place] RBC (Bld) [#/Vol] 2.59 10*6/uL Low 3.80-5.20 [facility] Comment on above: Performed By: #### M G3, PHOS3, BMP3, HEMDF #### [facility] [address] [place], [place] WBC (Bld) [#/Vol] 12.4 10*3/uL High 3.6-10.7 [facility] Comment on above: Performed By: #### M G3, PHOS3, BMP3, HEMDF #### [facility] [address] [place], [place] Leukodepleted Red Cellson Leukodepleted Red Cells Leukodepleted Re d Cells: [id number] transfused 09/17/20 14:45 MSS1 Unit Blood Type: B Unit Blood Rh: POS Blood Product Code: AS1 Unit Number: [id number] Unit Status: transfused Barcoded Unit Number: =[id number] Barcoded Product Code: = Barcoded ABO/Rh: =%7300 Unit Expiration: Unit Volume Transfused: 300 Unit Transfusion Start Date/Time: Leukodepleted Red Cells: [id number] transfused 09/17/20 14:45 MSS1 Unit Blood Type: B Unit Blood Rh: POS Blood Product Code: AS1 Unit Number: [id number] Unit Status: transfused Barcoded Unit Number: =[id number] Barcoded Product Code: = Barcoded ABO/Rh: =%7300 Unit Expiration: Unit Volume Transfused: 300 Unit Transfusion Start Date/Time: Leukodepleted Red Cells: [id number] released 09/19/20 05:44 ERR Unit Blood Type: B Unit Blood Rh: POS Blood Product Code: AS1 Unit Number: [id number] Unit Status: released Barcoded Unit Number: =[id number] Barcoded Product Code: = Barcoded ABO/Rh: =%7300 Unit Expiration: [id number] Leukodepleted Red Cells: [id number] released 09/19/20 05:44 ERR Unit Blood Type: B Unit Blood Rh: POS Blood Product Code: AS1 Unit Number: [id number] Unit Status: released Barcoded Unit Number: =[id number] Barcoded Product Code: = Barcoded ABO/Rh: =%7300 Unit Expiration: [id number] Normal [facility] Comment on above: Performed By: #### L ACT3, PT/AP #### [address] [place], [place] Magnesiumon 09-19-2020 Magnesium [Mass/Vol] 2.0 mg/dL Normal 1.6-2.3 [facility] Comment on above: Performed By: #### M G3, PHOS3, BMP3, HEMDF #### [address] [place], [place] Osmolality,Urineon Osmolality,Urine 477 mosm/kg Normal 300-1000 [facility] Comment on above: Result Comment: Repe ated Performed By: #### C ASHLEY GARCIA, NAURR #### [address] [place], [place] Sodium, Ur Randomon 09-19-19 21 Sodium [Moles/Vol] 16 mmol/L Low 30-90 [facility] Comment on above: Performed By: #### C ASHLEY GARCIA, NAURR #### [address] [place] [address] Basic Metabolic Panelon 08-31 Anion gap [Moles/Vol] 8 mmol/L Normal 3-13 [facility] Comment on above: Performed By: #### M G3, PHOS3, BMP3, HEMDF #### [address] [place], [place] Calcium [Mass/Vol] 8.7 mg/dL Normal 8.4-10.4 [facility] Comment on above: Performed By: #### M G3, PHOS3, BMP3, HEMDF #### [address] [place], [place] CO2 [Moles/Vol] 26 mmol/L Normal 22-30 [facility] Comment on above: Performed By: #### M G3, PHOS3, BMP3, HEMDF #### [facility] [address] [place] [address] Glucose [Mass/Vol] 117 mg/dL High 70-100 [facility] Comment on above: Performed By: #### M G3, PHOS3, BMP3, HEMDF #### [facility] [address] [place] [address] Urea nitrogen [Mass/Vol] 38 mg/dL High 7-20 [facility] Comment on above: Performed By: #### M G3, PHOS3, BMP3, HEMDF #### [facility] [address] [place] [address] Creatinine [Mass/Vol] 2.11 mg/dL High 0.52-1.25 [facility] Comment on above: Performed By: #### M G3, PHOS3, BMP3, HEMDF #### [facility] [address] [place] [address] GFR/1.73 sq M predicted among blacks MDRD (S/P/Bld) [Vol rate/Area] 27.8 mL/min/{1.73_m2} Abnormal >60 [facility] Comment on above: Performed By: #### M G3, PHOS3, BMP3, HEMDF #### [facility] [address] [place] [address] GFR/1.73 sq M predicted among non-blacks MDRD (S/P/Bld) [Vol rate/Area] 24.0 mL/min/{1.73_m2} Abnormal >60 [facility] Comment on above: Result Comment: KDIG O [...] #### M G3, PHOS3, BMP3, HEMDF #### [address] [place], [place] Potassium [Moles/Vol] 4.1 mmol/L Normal 3.5-5.1 [facility] Comment on above: Performed By: #### M G3, PHOS3, BMP3, HEMDF #### [address] [place], [place] Sodium [Moles/Vol] 141 mmol/L Normal 135-145 [facility] Comment on above: Performed By: #### M G3, PHOS3, BMP3, HEMDF #### [address] [place], [place] Chloride [Moles/Vol] 107 mmol/L Normal 98-107 [facility] Comment on above: Performed By: #### M G3, PHOS3, BMP3, HEMDF #### [address] [place], [place] Hemogram w/ Autodiffon 09-18 Abs Baso Cnt 0.0 10*3/uL Normal 0.0-0.2 [facility] Comment on above: Performed By: #### M G3, PHOS3, BMP3, HEMDF #### [address] [address] [place], [place] Abs Neutrophile Cnt 10.4 10*3/uL High 1.8-7.0 [facility] Comment on above: Performed By: #### M G3, PHOS3, BMP3, HEMDF #### [address] [address] [place], [place] Basophils/100 WBC (Bld) 0.2 % Normal 0.0-2.0 [facility] Comment on above: Performed By: #### M G3, PHOS3, BMP3, HEMDF #### [address] [place], [place] Eosinophils (Bld) [#/Vol] 0.0 10*3/uL Normal 0.0-0.5 [facility] Comment on above: Performed By: #### M G3, PHOS3, BMP3, HEMDF #### [address] [place], [place] Eosinophils/100 WBC (Bld) 0.0 % Low 1.0-6.0 [facility] Comment on above: Performed By: #### M G3, PHOS3, BMP3, HEMDF #### [address] [place], [place] Erythrocyte distribution width (RBC) [Ratio] 20.0 % High 11.5-14.5 [facility] Comment on above: Performed By: #### M G3, PHOS3, BMP3, HEMDF #### [address] [place], [place] Granulocytes/100 WBC (Bld) 87.5 % High 40.0-80.0 [facility] Comment on above: Performed By: #### M G3, PHOS3, BMP3, HEMDF #### [address] [place], [place] Hematocrit (Bld) [Volume fraction] 27.4 % Low 35.0-47.0 [facility] Comment on above: Performed By: #### M G3, PHOS3, BMP3, HEMDF #### [address] [place], [place] Hemoglobin (Bld) [Mass/Vol] 9.0 g/dL Low 11.7-16.0 [facility] Comment on above: Performed By: #### M G3, PHOS3, BMP3, HEMDF #### [address] [place], [place] Lymphocytes (Bld) [#/Vol] 0.6 10*3/uL Low 1.0-4.3 [facility] Comment on above: Performed By: #### M G3, PHOS3, BMP3, HEMDF #### [address] [place], [place] Lymphocytes/100 WBC (Bld) 5.3 % Low 20.0-40.0 [facility] Comment on above: Performed By: #### M G3, PHOS3, BMP3, HEMDF #### [address] [place], [place] MCH (RBC) [Entitic mass] 31.4 pg Normal 26.0-34.0 [facility] Comment on above: Performed By: #### M G3, PHOS3, BMP3, HEMDF #### [address] [place], [place] MCHC (RBC) [Mass/Vol] 32.8 % Normal 32.0-36.0 [facility] Comment on above: Performed By: #### M G3, PHOS3, BMP3, HEMDF #### [address] [place], [place] MCV (RBC) [Entitic vol] 95.6 fL Normal 79.0-98.0 [facility] Comment on above: Performed By: #### M G3, PHOS3, BMP3, HEMDF #### [address] [place], [place] Monocytes (Bld) [#/Vol] 0.8 10*3/uL Normal 0.0-0.8 [facility] Comment on above: Performed By: #### M G3, PHOS3, BMP3, HEMDF #### [address] [place], [place] Monocytes/100 WBC (Bld) 7.0 % Normal 2.0-10.0 [facility] Comment on above: Performed By: #### M G3, PHOS3, BMP3, HEMDF #### [address] [place], [place] Platelet mean volume (Bld) [Entitic vol] 9.6 fL Normal 7.4-10.4 [facility] Comment on above: Performed By: #### M G3, PHOS3, BMP3, HEMDF #### [address] [address] [place], [place] Platelets (Bld) [#/Vol] 171 10*3/uL Normal 140-440 [facility] Comment on above: Performed By: #### M G3, PHOS3, BMP3, HEMDF #### [facility] [address] [place], [place] RBC (Bld) [#/Vol] 2.87 10*6/uL Low 3.80-5.20 [facility] Comment on above: Performed By: #### M G3, PHOS3, BMP3, HEMDF #### [facility] [address] [place], [place] WBC (Bld) [#/Vol] 11.9 10*3/uL High 3.6-10.7 [facility] Comment on above: Performed By: #### M G3, PHOS3, BMP3, HEMDF #### [address] [place], [place] Magnesiumon 09-18-2020 Magnesium [Mass/Vol] 2.0 mg/dL Normal 1.6-2.3 [facility] Comment on above: Performed By: #### M G3, PHOS3, BMP3, HEMDF #### [address] [place], [place] Vitamin B12on 09-18-2020 Cobalamin (Vitamin B12) [Mass/Vol] 716 pg/mL Normal 239-931 [facility] Comment on above: Performed By: #### M G3, PHOS3, BMP3, HEMDF #### [address] [place], [place] Basic Metabolic Panelon 08-30 Anion gap [Moles/Vol] 9 mmol/L Normal 3-13 [facility] Comment on above: Performed By: #### M G3, PHOS3, BMP3, HEMDF #### [address] [place], [place] Calcium [Mass/Vol] 9.0 mg/dL Normal 8.4-10.4 [facility] Comment on above: Performed By: #### M G3, PHOS3, BMP3, HEMDF #### [address] [place], [place] CO2 [Moles/Vol] 30 mmol/L Normal 22-30 [facility] Comment on above: Performed By: #### M G3, PHOS3, BMP3, HEMDF #### [facility] [address] [place], [place] Glucose [Mass/Vol] 108 mg/dL High 70-100 [facility] Comment on above: Performed By: #### M G3, PHOS3, BMP3, HEMDF #### [facility] [address] [place], [place] Urea nitrogen [Mass/Vol] 38 mg/dL High 7-20 [facility] Comment on above: Performed By: #### M G3, PHOS3, BMP3, HEMDF #### [address] [place], [place] Creatinine [Mass/Vol] 1.94 mg/dL High 0.52-1.25 [facility] Comment on above: Performed By: #### M G3, PHOS3, BMP3, HEMDF #### [facility] [address] [place], [place] GFR/1.73 sq M predicted among blacks MDRD (S/P/Bld) [Vol rate/Area] 30.8 mL/min/{1.73_m2} Abnormal >60 [facility] Comment on above: Performed By: #### M G3, PHOS3, BMP3, HEMDF #### [facility] [address] [place], [place] GFR/1.73 sq M predicted among non-blacks MDRD (S/P/Bld) [Vol rate/Area] 26.6 mL/min/{1.73_m2} Abnormal >60 [facility] Comment on above: Result Comment: KDIG O [...] #### M G3, PHOS3, BMP3, HEMDF #### [address] [place], [place] Chloride [Moles/Vol] 102 mmol/L Normal 98-107 [facility] Comment on above: Performed By: #### M G3, PHOS3, BMP3, HEMDF #### [address] [address] [place], [place] Potassium [Moles/Vol] 3.5 mmol/L Normal 3.5-5.1 [facility] Comment on above: Performed By: #### M G3, PHOS3, BMP3, HEMDF #### [address] [address] [place], [place] Sodium [Moles/Vol] 141 mmol/L Normal 135-145 [facility] Comment on above: Performed By: #### M G3, PHOS3, BMP3, HEMDF #### [address] CR Chest Portableon 09-17-19 21 CR Chest Portable Patient Name: BRITTA YOUNG Diagnostic Radiology ACCESSION EXAM DATE/TIME PROCEDURE ORDERING PROVIDER [id number] 09/17/2020 21:35 EST CR Chest Portable AYALA LAKESHA Bebo CPT code 32343 Reason For Exam (CR Chest Portable) central [...] WENDELL Transcribed Date and Time: 09/17/2020 9:28 [facility] CULTURE URINEon 09-17-2020 CULTURE URINE 2 Organism [...] 32 S Trimeth/Sulfa(CARMINA) <= 20 S Normal [facility] Comment on above: Performed By: #### C RTUR, ASHLEY, NAURR #### [facility] [address], [place] Comp Metabolic Panelon 09-17 Calcium [Mass/Vol] 9.1 mg/dL Normal 8.4-10.4 [facility] Comment on above: Performed By: #### M G3, PHOS3, BMP3, HEMDF #### [address] [place], [place] ALP [Catalytic activity/Vol] 63 U/L Normal 38-126 [facility] Comment on above: Performed By: #### M G3, PHOS3, BMP3, HEMDF #### [address] [place], [place] ALT [Catalytic activity/Vol] 16 U/L Normal 0-34 [facility] Comment on above: Result Comment: The ALT test is performed by an updated assay method. Please note that the reference intervals have been changed and are now sex specific. Performed By: #### M G3, PHOS3, BMP3, HEMDF #### [address] [place], [place] Anion gap [Moles/Vol] 10 mmol/L Normal 3-13 [facility] Comment on above: Performed By: #### M G3, PHOS3, BMP3, HEMDF #### [address] [place], [place] AST [Catalytic activity/Vol] 24 U/L Normal 15-46 [facility] Comment on above: Performed By: #### M G3, PHOS3, BMP3, HEMDF #### [address] [place], [place] Bilirubin [Mass/Vol] 0.8 mg/dL Normal 0.2-1.3 [facility] Comment on above: Performed By: #### M G3, PHOS3, BMP3, HEMDF #### [address] [place], [place] CO2 [Moles/Vol] 28 mmol/L Normal 22-30 [facility] Comment on above: Performed By: #### M G3, PHOS3, BMP3, HEMDF #### [address] Creatinine [Mass/Vol] 2.11 mg/dL High 0.52-1.25 [facility] Comment on above: Performed By: #### M G3, PHOS3, BMP3, HEMDF #### [address] GFR/1.73 sq M predicted among blacks MDRD (S/P/Bld) [Vol rate/Area] 27.8 mL/min/{1.73_m2} Abnormal >60 [facility] Comment on above: Performed By: #### M G3, PHOS3, BMP3, HEMDF #### [address] GFR/1.73 sq M predicted among non-blacks MDRD (S/P/Bld) [Vol rate/Area] 24.0 mL/min/{1.73_m2} Abnormal >60 [facility] Comment on above: Result Comment: KDIG O [...] #### M G3, PHOS3, BMP3, HEMDF #### [address] Protein [Mass/Vol] 7.1 g/dL Normal 6.3-8.2 [facility] Comment on above: Performed By: #### M G3, PHOS3, BMP3, HEMDF #### [facility] [address] [place], [place] Urea nitrogen [Mass/Vol] 39 mg/dL High 7-20 [facility] Comment on above: Performed By: #### M G3, PHOS3, BMP3, HEMDF #### [address] [place], [place] Potassium [Moles/Vol] 3.8 mmol/L Normal 3.5-5.1 [facility] Comment on above: Performed By: #### M G3, PHOS3, BMP3, HEMDF #### [address] [place] Sodium [Moles/Vol] 139 mmol/L Normal 135-145 [facility] Comment on above: Performed By: #### M G3, PHOS3, BMP3, HEMDF #### [address] [place] Albumin [Mass/Vol] 3.7 g/dL Normal 3.5-5.0 [facility] Comment on above: Performed By: #### M G3, PHOS3, BMP3, HEMDF #### [address] [place] Chloride [Moles/Vol] 101 mmol/L Normal 98-107 [facility] Comment on above: Performed By: #### M G3, PHOS3, BMP3, HEMDF #### [address] [place], [place] Hemogramon 09-17-2020 Erythrocyte distribution width (RBC) [Ratio] 19.2 % High 11.5-14.5 [facility] Comment on above: Performed By: #### M G3, PHOS3, BMP3, HEMDF #### [place] [address] [address] [place], [place] Hematocrit (Bld) [Volume fraction] 24.7 % Low 35.0-47.0 [facility] Comment on above: Performed By: #### M G3, PHOS3, BMP3, HEMDF #### [place] [address] [address] [place], [place] Hemoglobin (Bld) [Mass/Vol] 7.9 g/dL Low 11.7-16.0 [facility] Comment on above: Performed By: #### M G3, PHOS3, BMP3, HEMDF #### [facility] [address] [place], [place] MCH (RBC) [Entitic mass] 32.4 pg Normal 26.0-34.0 [facility] Comment on above: Performed By: #### M G3, PHOS3, BMP3, HEMDF #### [place] [address] [address] [place], [place] MCHC (RBC) [Mass/Vol] 31.7 % Low 32.0-36.0 [facility] Comment on above: Performed By: #### M G3, PHOS3, BMP3, HEMDF #### [place] [address] [place], [place] MCV (RBC) [Entitic vol] 101.9 fL High 79.0-98.0 [facility] Comment on above: Performed By: #### M G3, PHOS3, BMP3, HEMDF #### [place] [address] [place], [place] Platelet mean volume (Bld) [Entitic vol] 10.6 fL High 7.4-10.4 [facility] Comment on above: Performed By: #### M G3, PHOS3, BMP3, HEMDF #### [place] [address] [place], [place] Platelets (Bld) [#/Vol] 187 10*3/uL Normal 140-440 [facility] Comment on above: Performed By: #### M G3, PHOS3, BMP3, HEMDF #### [place] [address] [place], [place] RBC (Bld) [#/Vol] 2.43 10*6/uL Low 3.80-5.20 [facility] Comment on above: Performed By: #### M G3, PHOS3, BMP3, HEMDF #### [place] [address] [place], [place] WBC (Bld) [#/Vol] 8.5 10*3/uL Normal 3.6-10.7 [facility] Comment on above: Performed By: #### M G3, PHOS3, BMP3, HEMDF #### [facility] [address] [place] [address] Magnesiumon 09-17-2020 Magnesium [Mass/Vol] 1.6 mg/dL Normal 1.6-2.3 [facility] Comment on above: Performed By: #### M G3, PHOS3, BMP3, HEMDF #### [facility] [address] [place] [address] Op Noteon 09-17-2020 Op Note PATIENT: MABLE [...] was then allowed to return to its pechanga position. Self-retaining retractor was removed and the abdomen closed with a looped PDS, followed by 3-0 Vicryl and nerissa. At the conclusion of the case, the patient was awakened from anesthesia and taken to recovery room with anticipated admission to the vascular unit. Diskriter Job ID: [id number] Chemo Prabhakar MD DOD:09/17/2020 07:08 P EJT/dsk DOT:09/17/2020 08:12 P Job Number: [id number] Document Number: [id number] cc: Haeligh Leyva MD Inpatient Medical Services [address] [address] Chemo Prabhakar MD [facility] [address] [facility] [address] Normal [facility] Phosphoruson 09-17-2020 Phosphate [Mass/Vol] 3.1 mg/dL Normal 2.5-4.5 [facility] Comment on above: Performed By: #### M G3, PHOS3, BMP3, HEMDF #### [facility] [address] [place] [address] Surgical Pathologyon 021 Surgical Pathology [id number] [facility] PATHOLOGY AND LABORATORY MEDICINE [address] [place] [id number] FINAL SURGICAL PATHOLOGY REPORT NAME: BRITTA YOUNG : 1955 64 Y F BILLING NO.: [id number] LOCATION: [address] [place] [address] A PROCEDURE 09/17/2020 DATE: SURGEON: NABOR LINDSAY [...] Upon transection, cut surfaces are grossly unremarkable. Hemodialysis Patient Care Specialist sections are submitted in a single cassette. JCK/0RW Disclaimer: The following statement applies to all immunohistochemistry, in situ hybridization, molecular studies, and immunofluorescence testing. The use of one or more reagents in the above tests is regulated as an analyte specific reagent (ASR). These tests were developed and their performance characteristics determined by the [facility]. They have not been cleared by the [...] negativity on decalcified specimens. Professional Performing Location: [address] [address]. DEPARTMENT OF PATHOLOGY AND LABORATORY MEDICINE [place], [place] Normal [facility] Basic Metabolic Panelon 08-30 Anion gap [Moles/Vol] 12 mmol/L Normal 3-13 [facility] Comment on above: Performed By: #### M G3, PHOS3, BMP3, HEMDF #### [facility] [address] [place], [place] Calcium [Mass/Vol] 9.6 mg/dL Normal 8.4-10.4 [facility] Comment on above: Performed By: #### M G3, PHOS3, BMP3, HEMDF #### [address] [address] [place], [place] CO2 [Moles/Vol] 26 mmol/L Normal 22-30 [facility] Comment on above: Performed By: #### M G3, PHOS3, BMP3, HEMDF #### [address] [address] [place], [place] Creatinine [Mass/Vol] 2.76 mg/dL High 0.52-1.25 [facility] Comment on above: Performed By: #### M G3, PHOS3, BMP3, HEMDF #### [facility] [address] [place], [place] GFR/1.73 sq M predicted among blacks MDRD (S/P/Bld) [Vol rate/Area] 20.1 mL/min/{1.73_m2} Abnormal >60 [facility] Comment on above: Performed By: #### M G3, PHOS3, BMP3, HEMDF #### [place] [address] [address] [place], [place] GFR/1.73 sq M predicted among non-blacks MDRD (S/P/Bld) [Vol rate/Area] 17.3 mL/min/{1.73_m2} Abnormal >60 [facility] Comment on above: Result Comment: KDIG O [...] #### M G3, PHOS3, BMP3, HEMDF #### [facility] [address] [place], [place] Glucose [Mass/Vol] 102 mg/dL High 70-100 [facility] Comment on above: Performed By: #### Arden G3, PHOS3, BMP3, HEMDF #### [address] [address] [place], [place] Urea nitrogen [Mass/Vol] 38 mg/dL High 7-20 [facility] Comment on above: Performed By: #### [place]den G3, PHOS3, BMP3, HEMDF #### [address] Chloride [Moles/Vol] 102 mmol/L Normal 98-107 [facility] Comment on above: Performed By: #### M G3, PHOS3, BMP3, HEMDF #### [facility] [address] [place], [place] Potassium [Moles/Vol] 3.9 mmol/L Normal 3.5-5.1 [facility] Comment on above: Performed By: #### M G3, PHOS3, BMP3, HEMDF #### [address] [address] [place], [place] Sodium [Moles/Vol] 141 mmol/L Normal 135-145 [facility] Comment on above: Performed By: #### M G3, PHOS3, BMP3, HEMDF #### [address], [place] Creatinine, Ur Randomon 08-30 Creatinine, Ur Random 247.1 mg/dL Normal No Range [facility] Comment on above: Performed By: #### M G3, PHOS3, BMP3, HEMDF #### [place] [address] [address] [place], [place] Hemoglobin AND Hematocriton 09-16-2020 Hematocrit (Bld) [Volume fraction] 24.8 % Low 35.0-47.0 [facility] Comment on above: Performed By: #### M G3, PHOS3, BMP3, HEMDF #### [place] [place], [place] Hemoglobin (Bld) [Mass/Vol] 7.8 g/dL Low 11.7-16.0 [facility] Comment on above: Performed By: #### M G3, PHOS3, BMP3, HEMDF #### [place] [address] [place], [place] Hemogramon 09-16-2020 Erythrocyte distribution width (RBC) [Ratio] 19.1 % High 11.5-14.5 [facility] Comment on above: Performed By: #### M G3, PHOS3, BMP3, HEMDF #### [place] [address] [place], [place] Hematocrit (Bld) [Volume fraction] 25.0 % Low 35.0-47.0 [facility] Comment on above: Performed By: #### M G3, PHOS3, BMP3, HEMDF #### [place] [address] [place], [place] Hemoglobin (Bld) [Mass/Vol] 7.9 g/dL Low 11.7-16.0 [facility] Comment on above: Performed By: #### M G3, PHOS3, BMP3, HEMDF #### [place] [address] [place], [place] MCH (RBC) [Entitic mass] 32.0 pg Normal 26.0-34.0 [facility] Comment on above: Performed By: #### M G3, PHOS3, BMP3, HEMDF #### [place] [place], [place] MCHC (RBC) [Mass/Vol] 31.6 % Low 32.0-36.0 [facility] Comment on above: Performed By: #### M G3, PHOS3, BMP3, HEMDF #### [place] [address] [place], [place] MCV (RBC) [Entitic vol] 101.2 fL High 79.0-98.0 [facility] Comment on above: Performed By: #### M G3, PHOS3, BMP3, HEMDF #### [place] [place], [place] Platelet mean volume (Bld) [Entitic vol] 10.5 fL High 7.4-10.4 [facility] Comment on above: Performed By: #### M G3, PHOS3, BMP3, HEMDF #### [place] [address] [place], [place] Platelets (Bld) [#/Vol] 176 10*3/uL Normal 140-440 [facility] Comment on above: Performed By: #### M G3, PHOS3, BMP3, HEMDF #### [place] [address] [place], [place] RBC (Bld) [#/Vol] 2.47 10*6/uL Low 3.80-5.20 [facility] Comment on above: Performed By: #### M G3, PHOS3, BMP3, HEMDF #### [place] [address] [place], [place] WBC (Bld) [#/Vol] 12.1 10*3/uL High 3.6-10.7 [facility] Comment on above: Performed By: #### M G3, PHOS3, BMP3, HEMDF #### [place] [address] [place], [place] Lactic Acidon 09-16-2020 Lactate [Moles/Vol] 0.9 mmol/L Normal 0.7-2.0 [facility] Comment on above: Performed By: #### L ACT3, PT/AP #### [place] [address] [place], [place] Procalcitoninon 09-16-2020 Procalcitonin 0.60 ng/mL Abnormal <0.10 [facility] Comment on above: Performed By: #### M G3, PHOS3, BMP3, HEMDF #### [place] [address] [place], [place] Protime AND APTTon aPTT Coag (Bld) [Time] 24.5 s Normal 20.0-30.5 [facility] Comment on above: Result Comment: NOTE : The therapeutic time for Heparin anticoagulation, based on Xa activity inhibition, is an APTT of 46-80 seconds. Performed By: #### L ACT3, PT/AP #### [place] [address] [place], [place] INR Coag (PPP) [Relative time] 1.1 Normal 0.9-1.1 [facility] Comment on above: Result Comment: David mmended [...] Performed By: #### L ACT3, PT/AP #### [place] [address] [place], [place] PT Coag (PPP) [Time] 12.0 s Normal 9.0-12.0 [facility] Comment on above: Result Comment: . Performed By: #### L ACT3, PT/AP #### [place] [address] [place], [place] Sodium, Ur Randomon 09-16-19 21 Sodium [Moles/Vol] 38 mmol/L Normal 30-90 [facility] Comment on above: Performed By: #### M G3, PHOS3, BMP3, HEMDF #### [address] [place] [address] TS GELon 09-16-2020 TS GEL ABO Group: B Rh, Gel: POS Antibody Screen Gel: NEG Normal [facility] Comment on above: Performed By: #### L ACT3, PT/AP #### [facility] [address] 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 CRITICAL RESULTS: A critical finding, was reported to Kat SCHAEFFER , by Teresa Childs RVT, [facility] , on 09/16/2020 , at 09:35 [...] supine position. Images were obtained using a [employer] E9 vascular ultrasound machine. 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 Images were obtained using a [employer] E9 vascular ultrasound machine. The abdominal aorta [...] 09/16/2020 11:01 am Signed by: RASHID SAHNI [facility] XA Special Angiography Dat phipps 09-16-2020 XA Special Angiography Procedure [facility]: [id number] Procedures ACCESSION EXAM DATE/TIME PROCEDURE ORDERING PROVIDER [id number] 09/16/2020 16:58 EST XA Special Angiography [id number] -MARGCHAKAA, Procedure KENNY Reason For Exam (XA [...] exchange was then made for a 5 Korean sheath over a 0.035 J-wire with the aid of a 5 Korean micropuncture exchange dilator. A 5 Korean glide Quiñones 1 catheter was then manipulated [...] 11/10/2020 09:00 EDT by MD GARCIA KEVIN [facility] Add on test from HISon 09-15 Add on test from HIS Accepted [facility] Comment on above: Result Comment: Spec imen available & acceptable for analysis. Performed By: #### M G3, PHOS3, BMP3, HEMDF #### [address] [place] [address] [place], [place] Basic Metabolic Panelon 08-30 Anion gap [Moles/Vol] 9 mmol/L Normal 3-13 [facility] Comment on above: Performed By: #### C RTUR, OSMUR, NAURR #### [address] [place] [place], [place] Calcium [Mass/Vol] 9.6 mg/dL Normal 8.4-10.4 [facility] Comment on above: Performed By: #### C RTUR, OSMUR, NAURR #### [address] [place] [place], [place] CO2 [Moles/Vol] 29 mmol/L Normal 22-30 [facility] Comment on above: Performed By: #### C RTUR, OSMUR, NAURR #### [address] [place], [place] Glucose [Mass/Vol] 115 mg/dL High 70-100 [facility] Comment on above: Performed By: #### C RTUR, OSMUR, NAURR #### [address] [place], [place] Urea nitrogen [Mass/Vol] 36 mg/dL High 7-20 [facility] Comment on above: Performed By: #### C RTUR, OSMUR, NAURR #### [address] [place], [place] Creatinine [Mass/Vol] 2.68 mg/dL High 0.52-1.25 [facility] Comment on above: Performed By: #### C ASHLEY GARCIA NAURR #### [address] [address] GFR/1.73 sq M predicted among blacks MDRD (S/P/Bld) [Vol rate/Area] 20.8 mL/min/{1.73_m2} Abnormal >60 [facility] Comment on above: Performed By: #### C ASHLEY GARCIA NAURR #### [facility] [address] [place] [address] GFR/1.73 sq M predicted among non-blacks MDRD (S/P/Bld) [Vol rate/Area] 18.0 mL/min/{1.73_m2} Abnormal >60 [facility] Comment on above: Result Comment: KDIG O [...] By: #### C ASHLEY GARCIA NAURR #### [facility] [address] [place] [address] Potassium [Moles/Vol] 3.7 mmol/L Normal 3.5-5.1 [facility] Comment on above: Performed By: #### C ASHLEY GARCIA NAURR #### [address] [address] Sodium [Moles/Vol] 138 mmol/L Normal 135-145 [facility] Comment on above: Performed By: #### C ASHLEY CHEN NAURR #### [facility] [address] [place] [address] Chloride [Moles/Vol] 100 mmol/L Normal 98-107 [facility] Comment on above: Performed By: #### C JOSE MONTEZ RAMIREZ #### [facility] [address] [place] [address] [address] Abdomen/Pelvis w/o Contra ston 09-15-2020 CT Abdomen/Pelvis w/o Contrast Patient Name: BRITTA YOUNG Computed Tomography ACCESSION EXAM DATE/TIME PROCEDURE ORDERING PROVIDER [id number] 09/15/2020 00:[address] Abdomen/Pelvis (No CURT SCHULER CONNOR N PO, No IV) CPT code 61417 Reason For Exam (CT Abdomen/Pelvis (No PO, [...] hernia is present Report Dictated on Workstation: [facility] Final Dictated: 09/15/2020 1:19 am Dictating Physician: DO BLACK ALFRED Signed Date and Time: 09/15/2020 1:45 am Signed by: DO BLACK ALFRED Transcribed Date and Time: 09/15/2020 1:19 Normal [facility] [employer] [facility] Complete Urinalysison 2020 Appearance (U) Turbid Abnormal Clear [facility] Comment on above: Result Comment: . Performed By: #### M G3, PHOS3, BMP3, HEMDF #### [employer] [facility] [address] [place] [address] Bacteria LM.HPF (Urine sed) [#/Area] Few Abnormal Negative [facility] [employer] [facility] Comment on above: Result Comment: . Performed By: #### M G3, PHOS3, BMP3, HEMDF #### [place] [address] [place], [place] Bilirubin,Urine Negative Normal Negative [facility] Comment on above: Result Comment: . Performed By: #### M G3, PHOS3, BMP3, HEMDF #### [address] [place] [address] [place], [place] Cast, Hyaline 0 - 2 Abnormal Negative [facility] Comment on above: Result Comment: . Performed By: #### M G3, PHOS3, BMP3, HEMDF #### [address] [place] [place], [place] Color (U) Yellow Normal Lt. Yellow [facility] Comment on above: Result Comment: . Performed By: #### M G3, PHOS3, BMP3, HEMDF #### [address] [place] [place], [place] Glucose Ql (U) Normal Normal Normal (<70) [facility] Comment on above: Result Comment: . Performed By: #### M G3, PHOS3, BMP3, HEMDF #### [address] [place], [place] Ketone,Urine Negative Normal Negative [facility] Comment on above: Result Comment: . Performed By: #### M G3, PHOS3, BMP3, HEMDF #### [address] [place] [place], [place] Leukocytes,Urine 25 Andrey/uL Abnormal Negative [facility] Comment on above: Result Comment: . Performed By: #### M G3, PHOS3, BMP3, HEMDF #### [place] [address] [place], [place] Mucous Threads Few Normal Negative [facility] Comment on above: Result Comment: . Performed By: #### M G3, PHOS3, BMP3, HEMDF #### [place] [address] [place], [place] Nitrites,Urine Negative Normal Negative [facility] Comment on above: Result Comment: . Performed By: #### M G3, PHOS3, BMP3, HEMDF #### [address] [place], [place] Occult Blood,Urine 0.2 mg/dL Abnormal Negative [facility] Comment on above: Result Comment: . Performed By: #### M G3, PHOS3, BMP3, HEMDF #### [address] [place], [place] pH (U) 5.0 Normal 5.0-8.0 [facility] Comment on above: Result Comment: . Performed By: #### M G3, PHOS3, BMP3, HEMDF #### [place] [place], [place] Protein (U) [Mass/Vol] 50 mg/dL Abnormal Negative [facility] Comment on above: Result Comment: . Performed By: #### M G3, PHOS3, BMP3, HEMDF #### [address] [place], [place] RBC LM.HPF (Urine sed) [#/Area] 11 - 25 Abnormal 0-2 [facility] Comment on above: Result Comment: . Performed By: #### M G3, PHOS3, BMP3, HEMDF #### [place] [place], [place] Specific [place],Urine 1.017 Normal 1.005 - 1.030 [facility] Comment on above: Result Comment: . Performed By: #### M G3, PHOS3, BMP3, HEMDF #### [address] [place], [place] Squamous Epithelial 0 - 2 Normal 3-5 [facility] Comment on above: Result Comment: . Performed By: #### M G3, PHOS3, BMP3, HEMDF #### [place] [address] [place], [place] Urobilinogen,Urine Normal Normal Normal (0-1) [facility] Comment on above: Result Comment: . Performed By: #### M G3, PHOS3, BMP3, HEMDF #### [address] WBC LM.HPF (Urine sed) [#/Area] 3 - 5 Normal 0-5 [facility] Comment on above: Result Comment: . Performed By: #### M G3, PHOS3, BMP3, HEMDF #### [place] [address] [place], [place] Hemoglobin AND Hematocriton 09-15-2020 Hematocrit (Bld) [Volume fraction] 24.5 % Low 35.0-47.0 [facility] Comment on above: Performed By: #### C ASHLEY GARCIA, NAURR #### [place] [address] [place], [place] Hemoglobin (Bld) [Mass/Vol] 7.9 g/dL Low 11.7-16.0 [facility] Comment on above: Performed By: #### C ASHLEY GARCIA, NAURR #### [place] [address] [place], [place] Hematocrit (Bld) [Volume fraction] 24.7 % Low 35.0-47.0 [facility] Comment on above: Performed By: #### M G3, PHOS3, BMP3, HEMDF #### [place] [address] [place], [place] Hemoglobin (Bld) [Mass/Vol] 7.8 g/dL Low 11.7-16.0 [facility] Comment on above: Performed By: #### M G3, PHOS3, BMP3, HEMDF #### [place] [address] [place], [place] Hematocrit (Bld) [Volume fraction] 26.2 % Low 35.0-47.0 [facility] Comment on above: Performed By: #### M G3, PHOS3, BMP3, HEMDF #### [place] [address] [place], [place] Hemoglobin (Bld) [Mass/Vol] 8.3 g/dL Low 11.7-16.0 [facility] Comment on above: Performed By: #### M G3, PHOS3, BMP3, HEMDF #### [place] [address] [place], [place] Magnesiumon 09-15-2020 Magnesium [Mass/Vol] 2.1 mg/dL Normal 1.6-2.3 [facility] Comment on above: Performed By: #### M G3, PHOS3, BMP3, HEMDF #### [place] [address] [place], [place] Magnesium [Mass/Vol] 1.4 mg/dL Low 1.6-2.3 [facility] Comment on above: Performed By: #### M G3, PHOS3, BMP3, HEMDF #### [place] [address] [place], [place] Phosphoruson 09-15-2020 Phosphate [Mass/Vol] 4.1 mg/dL Normal 2.5-4.5 [facility] Comment on above: Performed By: #### M G3, PHOS3, BMP3, HEMDF #### [place] [address] [place], [place] Procalcitoninon 09-15-2020 Interpretation See Below Normal [facility] Comment on above: Result Comment: PCT <0.50 = Low risk of severe sepsis and/or septic shock. PCT >2.00 = High risk of severe sepsis and/or septic shock. Performed By: #### M G3, PHOS3, BMP3, HEMDF #### [place] [address] [place], [place] Procalcitonin 0.63 ng/mL Abnormal <0.10 [facility] Comment on above: Performed By: #### M G3, PHOS3, BMP3, HEMDF #### [place] [address] [place], [place] Interpretation See Below Normal [facility] Comment on above: Result Comment: PCT <0.50 = Low risk of severe sepsis and/or septic shock. PCT >2.00 = High risk of severe sepsis and/or septic shock. Performed By: #### M G3, PHOS3, BMP3, HEMDF #### [place] [address] [place], [place] Basic Metabolic Panelon 08-30 Calcium [Mass/Vol] 10.5 mg/dL High 8.4-10.4 [facility] Comment on above: Performed By: #### M G3, PHOS3, BMP3, HEMDF #### [place] [address] [place], [place] Glucose [Mass/Vol] 151 mg/dL High 70-100 [facility] Comment on above: Performed By: #### M G3, PHOS3, BMP3, HEMDF #### [facility] [address] [place], [place] Urea nitrogen [Mass/Vol] 28 mg/dL High 7-20 [facility] Comment on above: Performed By: #### M G3, PHOS3, BMP3, HEMDF #### [facility] [address] [place], [place] Anion gap [Moles/Vol] 9 mmol/L Normal 3-13 [facility] Comment on above: Performed By: #### M G3, PHOS3, BMP3, HEMDF #### [facility] [address] [place], [place] CO2 [Moles/Vol] 32 mmol/L High 22-30 [facility] Comment on above: Performed By: #### M G3, PHOS3, BMP3, HEMDF #### [facility] [address] [place], [place] Creatinine [Mass/Vol] 2.35 mg/dL High 0.52-1.25 [facility] Comment on above: Performed By: #### M G3, PHOS3, BMP3, HEMDF #### [facility] [address] [place], [place] GFR/1.73 sq M predicted among blacks MDRD (S/P/Bld) [Vol rate/Area] 24.4 mL/min/{1.73_m2} Abnormal >60 [facility] Comment on above: Performed By: #### M G3, PHOS3, BMP3, HEMDF #### [facility] [address], [place] GFR/1.73 sq M predicted among non-blacks MDRD (S/P/Bld) [Vol rate/Area] 21.1 mL/min/{1.73_m2} Abnormal >60 [facility] Comment on above: Result Comment: KDIG O [...] #### M G3, PHOS3, BMP3, HEMDF #### [address] [address] Chloride [Moles/Vol] 99 mmol/L Normal 98-107 [facility] Comment on above: Performed By: #### M G3, PHOS3, BMP3, HEMDF #### [address] [address] Potassium [Moles/Vol] 4.3 mmol/L Normal 3.5-5.1 [facility] Comment on above: Performed By: #### M G3, PHOS3, BMP3, HEMDF #### [address] [address] Sodium [Moles/Vol] 140 mmol/L Normal 135-145 [facility] Comment on above: Performed By: #### M G3, PHOS3, BMP3, HEMDF #### [address] [address] CR Chest Portableon 09-14-19 21 CR Chest Portable Patient Name: BRITTA YOUNG Diagnostic Radiology ACCESSION EXAM DATE/TIME PROCEDURE ORDERING PROVIDER [id number] 09/14/2020 18:30 EST CR Chest Portable MD EVELIA, OSVALDO Vega CPT code 48930 Reason For Exam (CR Chest Portable) vomiting [...] Transcribed Date and Time: 09/14/2020 6:40 Normal [facility] ED Provider Noteon ED Provider Note I examined this charisse ent with my preceptor. Rafaela Augustin 09/14/202046 Normal [facility] ED Provider Note Emergency Department Encounter [facility] [...] [facility] Jassi Melendrez MD 09/30/20 0755 Normal [facility] ED Provider Note Emergency DepartmentEncounter [facility] Patient: Britta Young : 1955 Date of Evaluation: 09/14/2020 ED [place] Provider: Fidel Schuler PA-C ChiefComplaint Chief Complaint Patient presents with ? GI Bleeding vomitming blood (black in color per patient) post op hyterectomy two days ago. [place]ER[place] Britta Young is a 64 y.o. female [...] otherwise acutely negative except as in the [place]ERING. Past History Past Medical History: Diagnosis Date [...] on phone: None Gets together: None Attends denominational service: None Active member of club or [...] (*) eGFR 24.4 (*) EGFR IF NonAfrican East [place]orese 21.1 (*) Calcium 10.5 (*) All other components within normal limits Narrative: Test Performed by [place], [facility] [place] [address] CBC - Abnormal; Notable for the following components: WBC 18.9 (*) RBC 2.86 (*) Hemoglobin 9.1 (*) Hematocrit 28.9 (*) MCV 101.0 (*) MCHC 31.6 (*) RDW 19.9 (*) All other components within normal limits Narrative: Test Performed by [place], [facility] [place] [address] HEPATIC FUNCTION PANEL - Abnormal; Notable for the following components: Total Protein 8.3 (*) All other components within normal limits Narrative: Test Performed by [facility], [address] [place] [address] GASTRIC OCCULT BLOOD PROTIME-INR Narrative: Test Performed by [facility], [address] [place] [address] ADD ON LAB TEST Narrative: Test Performed by [facility], [address] [place] [address] MAGNESIUM PHOSPHORUS PROCALCITONIN Radiographs: Xr Chest Portable Result Date: 09/14/2020 Patient Name: BRITTA YOUNG Diagnostic Radiology ACCESSION EXAM DATE/TIME PROCEDURE ORDERING PROVIDER [id number] 09/14/2020 18:30 EST CR Chest Portable MD EVLEIA, OSVALDO Vega CPT code 24267 Reason For Exam (CR Chest Portable) vomiting [...] Department Physician in the absence of a residential interior designer. Please see their note for interpretation [...] on 09/10/20 when she was seen by LEATHER ETCHER for ovarian cancer, she had total abdominal [...] and to guide management. Patient admitted to [facility] in stable condition. Final Impression 1. Hematemesis with nausea 2. Acute kidney injury (HCC) DISPOSITION Admitted 09/14/2020 11:13:28 PM (Please note that portions of this note may have been completed with a voice recognition program.Efforts were made to edit the dictations but occasionally words are mis-transcribed.) Fidel Schuler PA-C [employer] Fidel Schuler PA-C 09/15/20 1216 [facility] ED Provider Note I did not participat e in the care of this patient. Petrona Nelson, FLIGHT PARAMEDIC - LEGAL BILLING SPECIALIST 09/14/202002 [facility] ED Provider Note Emergency Department Encounter [facility] EM[facility]GENC[facility] Patient: Britta Young : 1955 Date of Evaluation: 09/14/2020 ED Provider: OSVALDO ALTAMIRANO MD As the [id number], I performed a medical screening history and [...] Solutions Osvaldo Altamirano MD 09/14/20 180 Normal [facility] Hemogramon 09-14-2020 Erythrocyte distribution width (RBC) [Ratio] 19.9 % High 11.5-14.5 [facility] Comment on above: Performed By: #### M G3, PHOS3, BMP3, HEMDF #### [address] Hematocrit (Bld) [Volume fraction] 28.9 % Low 35.0-47.0 [facility] Comment on above: Performed By: #### M G3, PHOS3, BMP3, HEMDF #### [address] Hemoglobin (Bld) [Mass/Vol] 9.1 g/dL Low 11.7-16.0 [facility] Comment on above: Performed By: #### M G3, PHOS3, BMP3, HEMDF #### [address] MCH (RBC) [Entitic mass] 32.0 pg Normal 26.0-34.0 [facility] Comment on above: Performed By: #### M G3, PHOS3, BMP3, HEMDF #### [place] [address] [address], [place] MCHC (RBC) [Mass/Vol] 31.6 % Low 32.0-36.0 [facility] Comment on above: Performed By: #### M G3, PHOS3, BMP3, HEMDF #### [place] [address] [address] [place], [place] MCV (RBC) [Entitic vol] 101.0 fL High 79.0-98.0 [facility] Comment on above: Performed By: #### M G3, PHOS3, BMP3, HEMDF #### [place] [address] [address] [place], [place] Platelet mean volume (Bld) [Entitic vol] 10.3 fL Normal 7.4-10.4 [facility] Comment on above: Performed By: #### M G3, PHOS3, BMP3, HEMDF #### [place] [address] [place], [place] Platelets (Bld) [#/Vol] 228 10*3/uL Normal 140-440 [facility] Comment on above: Performed By: #### M G3, PHOS3, BMP3, HEMDF #### [place] [address] [address], [place] RBC (Bld) [#/Vol] 2.86 10*6/uL Low 3.80-5.20 [facility] Comment on above: Performed By: #### M G3, PHOS3, BMP3, HEMDF #### [place] [address] [address] [place], [place] WBC (Bld) [#/Vol] 18.9 10*3/uL High 3.6-10.7 [facility] Comment on above: Performed By: #### M G3, PHOS3, BMP3, HEMDF #### [place] [address] [address], [place] Hepatic Functionon 1 ALP [Catalytic activity/Vol] 83 U/L Normal 38-126 [facility] Comment on above: Performed By: #### M G3, PHOS3, BMP3, HEMDF #### [place] [address] [address], [place] ALT [Catalytic activity/Vol] 33 U/L Normal 0-34 [facility] Comment on above: Result Comment: The ALT test is performed by an updated assay method. Please note that the reference intervals have been changed and are now sex specific. Performed By: #### M G3, PHOS3, BMP3, HEMDF #### [place] [address] [address], [place] AST [Catalytic activity/Vol] 33 U/L Normal 15-46 [facility] Comment on above: Performed By: #### M G3, PHOS3, BMP3, HEMDF #### [place] [address] [address] [place], [place] Bilirubin [Mass/Vol] 1.1 mg/dL Normal 0.2-1.3 [facility] Comment on above: Performed By: #### M G3, PHOS3, BMP3, HEMDF #### [place] [address] [address], [place] Bilirubin.direct [Mass/Vol] 0.0 mg/dL Normal 0.0-0.3 [facility] Comment on above: Performed By: #### M G3, PHOS3, BMP3, HEMDF #### [place] [address] [address], [place] Protein [Mass/Vol] 8.3 g/dL High 6.3-8.2 [facility] Comment on above: Performed By: #### M G3, PHOS3, BMP3, HEMDF #### [place] [address] [address], [place] Albumin [Mass/Vol] 4.5 g/dL Normal 3.5-5.0 [facility] Comment on above: Performed By: #### M G3, PHOS3, BMP3, HEMDF #### [place] [address] [address], [place] Prothrombin Timeon 1 INR Coag (PPP) [Relative time] 1.1 Normal 0.9-1.1 [facility] Comment on above: Result Comment: David mmended [...] #### [place] G3, PHOS3, BMP3, HEMDF #### [address] PT Coag (PPP) [Time] 11.4 s Normal 9.0-12.0 [facility] Comment on above: Result Comment: . Performed By: #### [place] G3, PHOS3, BMP3, HEMDF #### [address] CBCon 09-11-2020 Interpretation and review of laboratory results Abnormal [facility] Work Phone: Test Performed by [id number] [place] [address] Work Phone: Hemogramon 09-11-2020 Erythrocyte distribution width (RBC) [Ratio] 20.3 % High 11.5-14.5 [facility] Work Phone: Comment on above: Performed By: #### [place] G3, PHOS3, BMP3, HEMDF #### [address] Hematocrit (Bld) [Volume fraction] 26.1 % Low 35.0-47.0 [facility] Work Phone: Comment on above: Performed By: #### [place] G3, PHOS3, BMP3, HEMDF #### [address] Hemoglobin (Bld) [Mass/Vol] 8.4 g/dL Low 11.7-16.0 [facility] Work Phone: Comment on above: Performed By: #### [place] G3, PHOS3, BMP3, HEMDF #### [address] MCH (RBC) [Entitic mass] 32.8 pg Normal 26.0-34.0 [facility] Work Phone: [phone] Comment on above: Performed By: #### M G3, PHOS3, BMP3, HEMDF #### [employer] [place] [address] [address], [place] MCHC (RBC) [Mass/Vol] 32.3 % Normal 32.0-36.0 [facility] Work Phone: [phone] Comment on above: Performed By: #### M G3, PHOS3, BMP3, HEMDF #### [facility] [employer] [place] [address] [address], [place] MCV (RBC) [Entitic vol] 101.6 fL High 79.0-98.0 [facility] Work Phone: [phone] Comment on above: Performed By: #### [place] G3, PHOS3, BMP3, HEMDF #### [facility] [employer] [place] [address] [address], [place] Platelet mean volume (Bld) [Entitic vol] 10.8 fL High 7.4-10.4 [facility] Work Phone: [phone] Comment on above: Performed By: #### M G3, PHOS3, BMP3, HEMDF #### [employer] [place] [address] [address], [place] Platelets (Bld) [#/Vol] 165 10*3/uL Normal 140-440 [facility] Work Phone: [phone] Comment on above: Performed By: #### M G3, PHOS3, BMP3, HEMDF #### [facility] [employer] [place] [address] [address], [place] RBC (Bld) [#/Vol] 2.56 10*6/uL Low 3.80-5.20 [facility] Work Phone: [phone] Comment on above: Performed By: #### M G3, PHOS3, BMP3, HEMDF #### [employer] [place] [address] [address], [place] WBC (Bld) [#/Vol] 14.9 10*3/uL High 3.6-10.7 [employer] Work Phone: Comment on above: Performed By: #### M G3, PHOS3, BMP3, HEMDF #### [address] [address] Op Noteon 09-10-2020 Op Note PATIENT: MABLE [...] and the cuff was closed with 0-Vicryl [id number]. The pelvis was irrigated. Hemostasis was noted. This completed the debulking operation. Using the colon closure protocol, the fascia was then closed using a running #1 PDS in a loop mass closure system, followed by subcutaneous interrupted #1 PDS followed by subcuticular 3-0 Monocryl on the skin. EBL was about 500 cc. cc: David Corral M.D., [facility] Job ID: [id number] Aravind Carey MD DOD:09/10/2020 03:56 P SA/dsk DOT:09/10/2020 04:56 P Job Number: [id number] Document Number: [id number] cc: Aravind Carey MD [address] [facility] [address] [facility] Surgical Pathologyon 021 Surgical Pathology [id number] [facility], [facility] PATHOLOGY AND LABORATORY MEDICINE [address] [place], [place] [id number] FINAL SURGICAL PATHOLOGY REPORT NAME: BRITTA YOUNG : 1955 64 Y F BILLING NO.: [id number] LOCATION: [facility] 1702 PROCEDURE 09/10/2020 DATE: SURGEON: ARAVIND CAREY [...] (pT): pT3c Regional Lymph Nodes (pN): pNX ONCOLOGY NAVIGATOR TUMOR BLOCK(S): A1 & A2 Ancillary studies: [...] cut surfaces, which are well-circumscribed and well-encapsulated. Hemodialysis Patient Care Specialist sections are submitted in two cassettes. B. [...] the lumen of the fallopian tube. Multiple pest control service representative sections are submitted. Cassette Summary: F1- cervix (arbitrarily 12 pm), F2- cervix (arbitrarily 6 pm), F3-6- with A3-4- paired and F5-6- paired are full thickness of the endomyometrium, F7-8- sections of the myometrium with green material, F9-12- pest control service representative sections of the hard nodules, F13-15- pest control service representative sections of the left ovary, F16- left fallopian tube, F13 and F18- right ovary, F19- right fallopian tube. G. Received in formalin labeled cul-de-sac nodule are two fragments of brown-rich fibrofatty tissue that aggregate to 4 x 3 x 2 cm. Sectioning through reveals brown-rich cut surfaces. Multiple pest control service representative sections are submitted in a total of two cassettes. ENK/[facility] Disclaimer: The following statement applies to all immunohistochemistry, in situ hybridization, molecular studies, and immunofluorescence testing. The use of one or more reagents in the above tests is regulated as an analyte specific reagent (ASR). These tests were developed and their performance characteristics determined by the clinical laboratories of [facility]. They have not been cleared by the [...] negativity on decalcified specimens. Professional Performing Location: [place] [address]. DEPARTMENT OF PATHOLOGY AND LABORATORY MEDICINE [place], [place] [address] Normal [facility] TS GELon 09-10-2020 TS GEL ABO Group: B Rh, Gel: POS Antibody Screen Gel: NEG Normal [facility] Comment on above: Performed By: #### C RTGUSTAVO, ASHLEY, MONTEZ #### [address] [address] TYPE AND SCREENon 09-10-2020 Sodium [Moles/Vol] B [facility] Work Phone: Sodium [Moles/Vol] Positive [facility] Work Phone: Sodium [Moles/Vol] Negative [facility] Work Phone: Test Performed by [facility], [address] [place] [id number] [place] [address] Work Phone: Basic Metabolic Panelon 02- Calcium [Mass/Vol] 9.2 mg/dL Normal 8.4-10.4 [facility] Comment on above: Performed By: #### C ASHLEY GARCIA NAURR #### [facility] [address] [place] [address] Glucose [Mass/Vol] 111 mg/dL High 70-100 [facility] Comment on above: Performed By: #### C ASHLEY GARCIA, NAURR #### [facility] [address], [place] Urea nitrogen [Mass/Vol] 35 mg/dL High 7-20 [facility] Comment on above: Performed By: #### C ASHLEY GARCIA, NAURR #### [facility] [address], [place] Anion gap [Moles/Vol] 9 Normal [facility] Comment on above: Performed By: #### C ASHLEY GARCIA, NAURR #### [facility] [address], [place] CO2 [Moles/Vol] 25 mmol/L Normal 22-30 [facility] Comment on above: Performed By: #### C ASHLEY GARCIA, NAURR #### [facility] [address], [place] Creatinine [Mass/Vol] 1.97 mg/dL High 0.52-1.25 [facility] Comment on above: Performed By: #### C ASHLEY GARCIA, NAURR #### [facility] [address] [place] [address] GFR/1.73 sq M predicted among blacks MDRD (S/P/Bld) [Vol rate/Area] 30.2 mL/min/{1.73_m2} Abnormal >60 [facility] Comment on above: Performed By: #### C ASHLEY GARCIA, NAURR #### [facility] [address] [place] [address] GFR/1.73 sq M predicted among non-blacks MDRD (S/P/Bld) [Vol rate/Area] 26.1 mL/min/{1.73_m2} Abnormal >60 [facility] Comment on above: Result Comment: KDIG O [...] By: #### C ASHLEY GARCIA NAURR #### [address] Potassium [Moles/Vol] 4.5 mmol/L Normal 3.5-5.1 [facility] Comment on above: Performed By: #### ASHLEY BARNES NAURR #### [address] Chloride [Moles/Vol] 102 mmol/L Normal 98-107 [facility] Comment on above: Performed By: #### C ASHLEY GARCIA NAURR #### [address] Sodium [Moles/Vol] 136 mmol/L Normal 135-145 [facility] Comment on above: Performed By: #### C ASHLEY GARCIA, NAURR #### [address] Anion gap [Moles/Vol] 9 mmol/L [facility] Work Phone: Calcium [Mass/Vol] 9.2 mg/dL 8.4 - 10. 4 mg/dL [facility] Work Phone: [phone] Chloride [Moles/Vol] 102 mmol/L 98 - 10 7 mmol/L [facility] Work Phone: [phone] CO2 [Moles/Vol] 25 mmol/L 22 - 30 mmol/L [facility] Work Phone: [phone] Creatinine [Mass/Vol] 1.97 mg/dL High 0.52 - 1.25 mg/dL [facility] Work Phone: [phone] EGFR IF NonAfrican [place]orese 26.1 mL/min Abnormal >60 [facility] Work Phone: [...] (S/P/Bld) [Vol rate/Area] 30.2 mL/min/{1.73_m2} Abnormal >60 [facility] Work Phone: [phone] Glucose [Mass/Vol] 111 mg/dL High 70 - 100 mg/dL [facility] Work Phone: [phone] Interpretation and review of laboratory results Abnormal [facility] Work Phone: [phone] Potassium [Moles/Vol] 4.5 mmol/L 3.5 - 5.1 mmol/L [facility] Work Phone: [phone] Sodium [Moles/Vol] 136 mmol/L 135 - 145 mmol/L [facility] Work Phone: [phone] Urea nitrogen [Mass/Vol] 35 mg/dL High 7 - 20 mg/dL [facility] Work Phone: [phone] Test Performed by [facility], [address] [place] [address] [facility] Work Phone: [phone]()- CBCon 09-09-2020 Erythrocyte distribution width (RBC) [Ratio] 20.5 % High 11.5 - 14.5 % [facility] Work Phone: () Hematocrit (Bld) [Volume fraction] 26.7 % Low 35 - 47 % [facility] Work Phone: () Hemoglobin (Bld) [Mass/Vol] 8.6 g/dL Low 11.7 - 16 g/dL [facility] Work Phone: [phone] Interpretation and review of laboratory results Abnormal [facility] Work Phone: [phone] MCH (RBC) [Entitic mass] 32.8 pg 26 - 34 pg [facility] Work Phone: () MCHC (RBC) [Mass/Vol] 32.4 % 32 - 36 % [facility] Work Phone: () MCV (RBC) [Entitic vol] 101.4 fL High 79 - 98 fL [facility] Work Phone: () Platelet mean volume (Bld) [Entitic vol] 10.5 fL High 7.4 - 10.4 fL [facility] Work Phone: [phone] Platelets (Bld) [#/Vol] 172 10*3/uL 140 - 440 10*3/uL [facility] Work Phone: [phone] RBC (Bld) [#/Vol] 2.63 10*6/uL Low 3.8 - 5.2 10*6/uL [facility] Work Phone: [phone] WBC (Bld) [#/Vol] 8.8 10*3/uL 3.6 - 10.7 10*3/uL [facility] Work Phone: 1() Test Performed by [employer], [facility] [place] [address] [facility] Work Phone: [phone] Hemogramon 09-09-2020 Erythrocyte distribution width (RBC) [Ratio] 20.5 % High 11.5-14.5 [facility] Comment on above: Performed By: #### C ASHLEY GARCIA NAURR #### [facility] [address], [place] Hematocrit (Bld) [Volume fraction] 26.7 % Low 35.0-47.0 [facility] Comment on above: Performed By: #### C RTGUSTAVO, OSMUR, NAURR #### [place] [address] [address] [place], [place] Hemoglobin (Bld) [Mass/Vol] 8.6 g/dL Low 11.7-16.0 [facility] Comment on above: Performed By: #### C RTGUSTAVO, OSMUR, NAURR #### [place] [address] [address] [place], [place] MCH (RBC) [Entitic mass] 32.8 pg Normal 26.0-34.0 [facility] Comment on above: Performed By: #### C RTGUSTAVO, OSMGUSTAVO, NAURR #### [place] [address] [address] [place], [place] MCHC (RBC) [Mass/Vol] 32.4 % Normal 32.0-36.0 [facility] Comment on above: Performed By: #### C RTGUSTAVO, OSMUR, NAURR #### [place] [address] [address] [place], [place] MCV (RBC) [Entitic vol] 101.4 fL High 79.0-98.0 [facility] Comment on above: Performed By: #### C RTGUSTAVO, OSMGUSTAVO, NAURR #### [place] [address] [address] [place], [place] Platelet mean volume (Bld) [Entitic vol] 10.5 fL High 7.4-10.4 [facility] Comment on above: Performed By: #### C RTGUSTAVO, OSMUR, NAURR #### [place] [address] [address] [place], [place] Platelets (Bld) [#/Vol] 172 10*3/uL Normal 140-440 [facility] Comment on above: Performed By: #### C RTGUSTAVO, OSMUR, NAURR #### [place] [address] [address] [place], [place] RBC (Bld) [#/Vol] 2.63 10*6/uL Low 3.80-5.20 [facility] Comment on above: Performed By: #### C ASHLEY GARCIA NAURR #### [facility] [address], [place] WBC (Bld) [#/Vol] 8.8 10*3/uL Normal 3.6-10.7 [facility] Comment on above: Performed By: #### C ASHLEY GARCIA NAURR #### [facility] [address], [place] Whole blood hemoglobin A1c/t otal hemoglobin ratio (mass fraction)on 06-15-2020 HbA1c (Bld) [Mass fraction] 5.9 % 3.8-5.6 [facility] Comment on above: Normal < 5.7 % Predi abetic 5.7 - 6.4 % Diabetic >or= 6.5 % Please note range changes. Blood platelet morphology de termination (nominal result)on 05-25-2020 Platelet morphology finding Nom (Bld) LARGE [facility] Comment on above: RARE GIANT PLATELETS NOTED Laboratory - Chemistry and C hemistry - challengeon 05-25-2020 Cobalamin (Vitamin B12) [Mass/Vol] 468 pg/mL 211-911 [facility] No Panel Informationon 05-25 Atypical Lymphocytes Not Reportable [facility] Comment on above: Previous reported re sult: 2+ %Edited by: RAGHAVENDRA on 05/25/20:1111 AMENDED REPORT 05/25/20 1111 ATYPICAL LYMPH previously reported as: 2+ % Folate 5.10 ng/mL 3.1-55.4 [facility] Smudge cell detectionon 04-30 Smudge cells LM Ql (Bld) Not Reportable [facility] Comment on above: Previous reported re sult: 1+ Edited by: RAGHAVENDRA on 05/25/20:1111 AMENDED REPORT 05/25/20 1111 SMUDG previously reported as: 1+ H Vital Signs Date Time Vital Sign Value Performing Clinician Facility 05-06-2025 09:07-0400 Body height 167.[address] Stephie Velarde MD Work Phone: [facility] 05-06-2025 09:07-0400 Body mass index (BMI) [Ratio] 37.6 kg/m2 Dr. Stephie Velarde MD Work Phone: [facility] 05-06-2025 09:07-0400 Body temperature 98.2 [degF] Dr. Stephie Velarde MD Work Phone: [facility] 05-06-2025 09:07-0400 Body weight 105.[address] Stephie Velarde MD Work Phone: [facility] 05-06-2025 09:07-0400 Diastolic blood pressure 89 mm[Hg] Dr. Stephie Velarde MD Work Phone: [facility] 05-06-2025 09:07-0400 Heart rate 71 /min Dr. Stephie Velarde MD Work Phone: [facility] 05-06-2025 09:07-0400 Respiratory rate 18 /min Dr. Stephie Velarde MD Work Phone: [facility] 05-06-2025 09:07-0400 SaO2% (BldA) [Mass fraction] 98 % Dr. Stephie Velarde MD Work Phone: [facility] 05-06-2025 09:07-0400 Systolic blood pressure 143 mm[Hg] Dr. Stephie Velarde MD Work Phone: [facility] 04-29-2025 12:53-0400 Body temperature 96.6 [degF] Dr. Stephie Velarde MD Work Phone: [facility] 04-29-2025 12:53-0400 Diastolic blood pressure 73 mm[Hg] Dr. Stephie Velarde MD Work Phone: [facility] 04-29-2025 12:53-0400 Heart rate 71 /min Dr. Stephie Velarde MD Work Phone: [place] [facility] 04-29-2025 12:53-0400 Respiratory rate 16 /min Dr. Stephie Velarde MD Work Phone: [facility] 04-29-2025 12:53-0400 Systolic blood pressure 104 mm[Hg] Dr. Stephie Velarde MD Work Phone: [facility] 04-29-2025 08:50-0400 Body mass index (BMI) [Ratio] 37.9 kg/m2 Dr. Stephie Vealrde MD Work Phone: [facility] 04-29-2025 08:48-0400 SaO2% (BldA) [Mass fraction] 100 % Dr. Stephie Velarde MD Work Phone: [facility] 04-22-2025 17:04-0400 Diastolic blood pressure 85 mm[Hg] Dr. Stephie Velarde MD Work Phone: [facility] 04-22-2025 17:04-0400 Heart rate 75 /min Dr. Stephie Velarde MD Work Phone: [facility] 04-22-2025 17:04-0400 Systolic blood pressure 175 mm[Hg] Dr. Stephie Velarde MD Work Phone: [facility] 04-22-2025 13:40-0400 Body height 167.[address] Stephie Velarde MD Work Phone: [facility] 04-22-2025 13:40-0400 Body mass index (BMI) [Ratio] 38 kg/m2 Dr. Stephie Velarde MD Work Phone: [facility] 04-22-2025 13:40-0400 Body temperature 98.2 [degF] Dr. Stephie Velarde MD Work Phone: [facility] 04-22-2025 13:40-0400 Body weight 107.[address] Stephie Velarde MD Work Phone: [facility] 04-22-2025 13:40-0400 Diastolic blood pressure 86 mm[Hg] Dr. Stephie Velarde MD Work Phone: [facility] 04-22-2025 13:40-0400 Heart rate 66 /min Dr. Stephie Velarde MD Work Phone: [facility] 04-22-2025 13:40-0400 Respiratory rate 18 /min Dr. Stephie Velarde MD Work Phone: [facility] 04-22-2025 13:40-0400 SaO2% (BldA) [Mass fraction] 100 % Dr. Stephei Velarde MD Work Phone: [facility] 04-22-2025 13:40-0400 Systolic blood pressure 152 mm[Hg] Dr. Stephie Velarde MD Work Phone: [facility] 04-22-2025 12:54-0400 Body mass index (BMI) [Ratio] 38 kg/m2 Dr. Stephie Velarde MD Work Phone: [facility] 04-22-2025 12:54-0400 Body temperature 96.7 [degF] Dr. Stephie Velarde MD Work Phone: [facility] 04-22-2025 12:54-0400 Body weight 107.[address] Stephie Velarde MD Work Phone: [facility] 04-22-2025 12:54-0400 Respiratory rate 16 /min Dr. Stephie Velarde MD Work Phone: [facility] 04-22-2025 12:54-0400 SaO2% (BldA) [Mass fraction] 100 % Dr. Stephie Velarde MD Work Phone: [facility] 04-16-2025 13:00-0400 Body height 170.[address] Stephie Velarde MD Work Phone: [facility] 04-16-2025 13:00-0400 Body mass index (BMI) [Ratio] 41 kg/m2 Dr. Stephie Velarde MD Work Phone: [facility] 04-16-2025 13:00-0400 Body temperature 98.1 [degF] Dr. Stephie Velarde MD Work Phone: [facility] 04-16-2025 13:00-0400 Body weight 118.[address] Stephie Velarde MD Work Phone: [facility] 04-16-2025 13:00-0400 Diastolic blood pressure 88 mm[Hg] Dr. Stephie Velarde MD Work Phone: [facility] 04-16-2025 13:00-0400 Heart rate 73 /min Dr. Stephie Velarde MD Work Phone: [facility] 04-16-2025 13:00-0400 Respiratory rate 16 /min Dr. Stephie Velarde MD Work Phone: [facility] 04-16-2025 13:00-0400 SaO2% (BldA) [Mass fraction] 98 % Dr. Stephie Velarde MD Work Phone: [facility] 04-16-2025 13:00-0400 Systolic blood pressure 146 mm[Hg] Dr. Stephie Velarde MD Work Phone: [facility] 04-15-2025 14:45-0400 Diastolic blood pressure 85 mm[Hg] Dr. Stephie Velarde MD Work Phone: [facility] 04-15-2025 14:45-0400 Systolic blood pressure 193 mm[Hg] Dr. Stephie Velarde MD Work Phone: [facility] 04-15-2025 08:33-0400 Body height 170.[address] Stephie Velarde MD Work Phone: [facility] 04-15-2025 08:33-0400 Body temperature 98.3 [degF] Dr. Stephie Velarde MD Work Phone: [facility] 04-15-2025 08:33-0400 Diastolic blood pressure 94 mm[Hg] Dr. Stephie Velarde MD Work Phone: [facility] 04-15-2025 08:33-0400 Heart rate 63 /min Dr. Stephie Velarde MD Work Phone: [facility] 04-15-2025 08:33-0400 Respiratory rate 18 /min Dr. Stephie Velarde MD Work Phone: [facility] 04-15-2025 08:33-0400 SaO2% (BldA) [Mass fraction] 98 % Dr. Stephie Velarde MD Work Phone: [facility] 04-15-2025 08:33-0400 Systolic blood pressure 172 mm[Hg] Dr. Stephie Velarde MD Work Phone: [facility] 04-08-2025 11:28-0400 Body temperature 96.9 [degF] Dr. Stephie Velarde MD Work Phone: [facility] 04-08-2025 11:28-0400 Diastolic blood pressure 81 mm[Hg] Dr. Stephie Velarde MD Work Phone: [facility] 04-08-2025 11:28-0400 Heart rate 75 /min Dr. Stephie Velarde MD Work Phone: [facility] 04-08-2025 11:28-0400 Respiratory rate 16 /min Dr. Stephie Velarde MD Work Phone: [facility] 04-08-2025 11:28-0400 SaO2% (BldA) [Mass fraction] 98 % Dr. Stephie Velarde MD Work Phone: [facility] 04-08-2025 11:28-0400 Systolic blood pressure 174 mm[Hg] Dr. Stephie Velarde MD Work Phone: [facility] 04-08-2025 10:22-0400 Diastolic blood pressure 95 mm[Hg] Dr. Stephie Velarde MD Work Phone: [facility] 04-08-2025 10:22-0400 Systolic blood pressure 167 mm[Hg] Dr. Stephie Velarde MD Work Phone: [facility] 04-08-2025 08:57-0400 Body height 170.[address] Stephie Velarde MD Work Phone: [facility] 04-08-2025 08:57-0400 Body mass index (BMI) [Ratio] 37.7 kg/m2 Dr. Stephie Velarde MD Work Phone: [facility] 04-08-2025 08:57-0400 Body temperature 98.4 [degF] Dr. Stephie Velarde MD Work Phone: [facility] 04-08-2025 08:57-0400 Body weight 109.[address] Stephie Velarde MD Work Phone: [facility] 04-08-2025 08:57-0400 Diastolic blood pressure 91 mm[Hg] Dr. Stephie Velarde MD Work Phone: [facility] 04-08-2025 08:57-0400 Heart rate 68 /min Dr. Stephie Velarde MD Work Phone: [facility] 04-08-2025 08:57-0400 Respiratory rate 18 /min Dr. Stephie Velarde MD Work Phone: [facility] 04-08-2025 08:57-0400 SaO2% (BldA) [Mass fraction] 97 % Dr. Stephie Velarde MD Work Phone: [facility] 04-08-2025 08:57-0400 Systolic blood pressure 183 mm[Hg] Dr. Stephie Velarde MD Work Phone: [facility] 04-01-2025 14:52-0400 Body temperature 97.6 [degF] Dr. Stephie Velarde MD Work Phone: [facility] 04-01-2025 14:52-0400 Diastolic blood pressure 88 mm[Hg] Dr. Stephie Velarde MD Work Phone: [facility] 04-01-2025 14:52-0400 Heart rate 71 /min Dr. Stephie Velarde MD Work Phone: [facility] 04-01-2025 14:52-0400 Respiratory rate 16 /min Dr. Stephie Velarde MD Work Phone: [facility] 04-01-2025 14:52-0400 Systolic blood pressure 139 mm[Hg] Dr. Stephie Velarde MD Work Phone: [facility] 04-01-2025 11:44-0400 Body mass index (BMI) [Ratio] 37.6 kg/m2 Dr. Stephie Velared MD Work Phone: [facility] 04-01-2025 11:44-0400 SaO2% (BldA) [Mass fraction] 99 % Dr. Stephie Velarde MD Work Phone: [facility] 03-25-2025 09:20-0400 Body height 167.[address] Stephie Velarde MD Work Phone: [facility] 03-25-2025 09:20-0400 Body mass index (BMI) [Ratio] 42.3 kg/m2 Dr. Stephie Velarde MD Work Phone: [facility] 03-25-2025 09:20-0400 Body temperature 97.6 [degF] Dr. Stephie Velarde MD Work Phone: [facility] 03-25-2025 09:20-0400 Body weight 118.[address] Stephie Velarde MD Work Phone: [facility] 03-25-2025 09:20-0400 Diastolic blood pressure 88 mm[Hg] Dr. Stephie Velarde MD Work Phone: [facility] 03-25-2025 09:20-0400 Heart rate 66 /min Dr. Stephie Velarde MD Work Phone: [facility] 03-25-2025 09:20-0400 Respiratory rate 18 /min Dr. Stephie Velarde MD Work Phone: [facility] 03-25-2025 09:20-0400 SaO2% (BldA) [Mass fraction] 99 % Dr. Stephie Velarde MD Work Phone: [facility] 03-25-2025 09:20-0400 Systolic blood pressure 141 mm[Hg] Dr. Stephie Velarde MD Work Phone: [facility] 03-18-2025 13:30-0400 Body temperature 97.9 [degF] Dr. Stephie Velarde MD Work Phone: [facility] 03-18-2025 13:30-0400 Diastolic blood pressure 61 mm[Hg] Dr. Stephie Velarde MD Work Phone: [facility] 03-18-2025 13:30-0400 Heart rate 64 /min Dr. Stephie Velarde MD Work Phone: [facility] 03-18-2025 13:30-0400 Respiratory rate 16 /min Dr. Stephie Velarde MD Work Phone: [facility] 03-18-2025 13:30-0400 SaO2% (BldA) [Mass fraction] 99 % Dr. Stephie Velarde MD Work Phone: [facility] 03-18-2025 13:30-0400 Systolic blood pressure 116 mm[Hg] Dr. Stephie Velarde MD Work Phone: [facility] 03-18-2025 08:49-0400 Body height 167.[address] Stephie Velarde MD Work Phone: [facility] 03-18-2025 08:49-0400 Body mass index (BMI) [Ratio] 42.3 kg/m2 Dr. Stephie Velarde MD Work Phone: [facility] 03-18-2025 08:49-0400 Body temperature 98.2 [degF] Dr. Stephie Velarde MD Work Phone: [facility] 03-18-2025 08:49-0400 Body weight 118.[address] Stephie Velarde MD Work Phone: [facility] 03-18-2025 08:49-0400 Diastolic blood pressure 83 mm[Hg] Dr. Stephie Velarde MD Work Phone: [facility] 03-18-2025 08:49-0400 Heart rate 63 /min Dr. Stephie Velarde MD Work Phone: [facility] 03-18-2025 08:49-0400 Respiratory rate 18 /min Dr. Stephie Velarde MD Work Phone: [facility] 03-18-2025 08:49-0400 SaO2% (BldA) [Mass fraction] 98 % Dr. Stephie Velarde MD Work Phone: [facility] 03-18-2025 08:49-0400 Systolic blood pressure 150 mm[Hg] Dr. Stephie Velarde MD Work Phone: [facility] 03-16-2025 14:08-0400 Body height 167.[address] Stephie Velarde MD Work Phone: [facility] 03-16-2025 14:08-0400 Body mass index (BMI) [Ratio] 42.3 kg/m2 Dr. Stephie Velarde MD Work Phone: [facility] 03-16-2025 14:08-0400 Body temperature 96.3 [degF] Dr. Stephie Velarde MD Work Phone: [facility] 03-16-2025 14:08-0400 Body weight 118.[address] Stephie Velarde MD Work Phone: [facility] 03-16-2025 14:08-0400 Diastolic blood pressure 74 mm[Hg] Dr. Stephie Velarde MD Work Phone: [facility] 03-16-2025 14:08-0400 Heart rate 75 /min Dr. Stephie Velarde MD Work Phone: [facility] 03-16-2025 14:08-0400 Respiratory rate 16 /min Dr. Stephie Velarde MD Work Phone: [facility] 03-16-2025 14:08-0400 SaO2% (BldA) [Mass fraction] 98 % Dr. Stephie Velarde MD Work Phone: [facility] 03-16-2025 14:08-0400 Systolic blood pressure 124 mm[Hg] Dr. Stephie Velarde MD Work Phone: [facility] 03-03-2025 13:16-0400 Body height 167.[address] Stephie Velarde MD Work Phone: [facility] 03-03-2025 13:16-0400 Body mass index (BMI) [Ratio] 40.6 kg/m2 Dr. Stephie Velarde MD Work Phone: [facility] 03-03-2025 13:16-0400 Body temperature 98.4 [degF] Dr. Stephie Velarde MD Work Phone: [facility] 03-03-2025 13:16-0400 Body weight 114.[address] Stephie Velarde MD Work Phone: [facility] 03-03-2025 13:16-0400 Diastolic blood pressure 82 mm[Hg] Dr. Stephie Velarde MD Work Phone: [facility] 03-03-2025 13:16-0400 Heart rate 78 /min Dr. Stephie Velarde MD Work Phone: [facility] 03-03-2025 13:16-0400 Respiratory rate 18 /min Dr. Stephie Velarde MD Work Phone: [facility] 03-03-2025 13:16-0400 SaO2% (BldA) [Mass fraction] 95 % Dr. Stephie Velarde MD Work Phone: [facility] 03-03-2025 13:16-0400 Systolic blood pressure 135 mm[Hg] Dr. Stephie Velarde MD Work Phone: [facility] 01-23-2025 11:56-0400 Body height 167.6 cm Aravind Carey MD Work Phone: [facility] 01-23-2025 11:56-0400 Body mass index (BMI) [Ratio] 47.13 kg/m2 Aravind Carey MD Work Phone: [facility] 01-23-2025 11:56-0400 Body weight 132.45 kg Aravind Carey MD Work Phone: [facility] 01-23-2025 11:56-0400 Diastolic blood pressure 83 mm[Hg] Aravind Carey MD Work Phone: [facility] 01-23-2025 11:56-0400 Heart rate 62 /min Aravind Carey MD Work Phone: [facility] 01-23-2025 11:56-0400 Systolic blood pressure 158 mm[Hg] Aravind Carey MD Work Phone: [facility] 01-15-2025 10:38-0400 Diastolic blood pressure 81 mm[Hg] Juan Brice MD Work Phone: [facility] 01-15-2025 10:38-0400 Systolic blood pressure 136 mm[Hg] Juan Brice MD Work Phone: [facility] 01-15-2025 10:32-0400 Body height 170.2 cm Juan Brice MD Work Phone: [facility] 01-15-2025 10:32-0400 Body mass index (BMI) [Ratio] 41.35 kg/m2 Juan Brice MD Work Phone: [facility] 01-15-2025 10:32-0400 Body temperature 97 [degF] Juan Brice MD Work Phone: [facility] 01-15-2025 10:32-0400 Body weight 119.75 kg Juan Brice MD Work Phone: [facility] 01-15-2025 10:32-0400 Heart rate 68 /min Juan Brice MD Work Phone: [facility] 01-15-2025 10:32-0400 SaO2% (BldA) [Mass fraction] 97 % Juan Brice MD Work Phone: [facility] 01-13-2025 15:24-0400 Body height 167.[address] Stephie Velarde MD Work Phone: [facility] 01-13-2025 15:24-0400 Body mass index (BMI) [Ratio] 41.3 kg/m2 Dr. Stephie Velarde MD Work Phone: [facility] 01-13-2025 15:24-0400 Body temperature 98.2 [degF] Dr. Stephie Velarde MD Work Phone: [facility] 01-13-2025 15:24-0400 Body weight 116.[address] Stephie Velarde MD Work Phone: [facility] 01-13-2025 15:24-0400 Diastolic blood pressure 90 mm[Hg] Dr. Stephie Velarde MD Work Phone: [facility] 01-13-2025 15:24-0400 Heart rate 66 /min Dr. Stephie Velarde MD Work Phone: [facility] 01-13-2025 15:24-0400 Respiratory rate 18 /min Dr. Stephie Velarde MD Work Phone: [facility] 01-13-2025 15:24-0400 SaO2% (BldA) [Mass fraction] 98 % Dr. Stephie Velarde MD Work Phone: [facility] 01-13-2025 15:24-0400 Systolic blood pressure 169 mm[Hg] Dr. Stephie Velarde MD Work Phone: [facility] 12-25-2024 14:38-0400 Body height 167.[address] Stephie Velarde MD Work Phone: [facility] 12-25-2024 14:38-0400 Body mass index (BMI) [Ratio] 41.3 kg/m2 Dr. Stephie Velarde MD Work Phone: [facility] 12-25-2024 14:38-0400 Body temperature 97.5 [degF] Dr. Stephie Velarde MD Work Phone: [facility] 12-25-2024 14:38-0400 Body weight 116.[address] Stephie Velarde MD Work Phone: [facility] 12-25-2024 14:38-0400 Diastolic blood pressure 83 mm[Hg] Dr. Stephie Velarde MD Work Phone: [facility] 12-25-2024 14:38-0400 Heart rate 71 /min Dr. Stephie Velarde MD Work Phone: [facility] 12-25-2024 14:38-0400 Respiratory rate 18 /min Dr. Stephie Velarde MD Work Phone: [facility] 12-25-2024 14:38-0400 SaO2% (BldA) [Mass fraction] 97 % Dr. Stephie Velarde MD Work Phone: [facility] 12-25-2024 14:38-0400 Systolic blood pressure 148 mm[Hg] Dr. Stephie Velarde MD Work Phone: [facility] 12-23-2024 12:11-0400 Diastolic blood pressure 99 mm[Hg] Juan Brice MD Work Phone: [facility] 12-23-2024 12:11-0400 Systolic blood pressure 185 mm[Hg] Juan Brice MD Work Phone: [facility] 12-23-2024 12:02-0400 Body height 167.6 cm Juan Brice MD Work Phone: [facility] 12-23-2024 12:02-0400 Body mass index (BMI) [Ratio] 42.68 kg/m2 Juan Brice MD Work Phone: [facility] 12-23-2024 12:02-0400 Body temperature 97.3 [degF] Juan Brice MD Work Phone: [facility] 12-23-2024 12:02-0400 Body weight 119.93 kg Juan Brice MD Work Phone: [facility] 12-23-2024 12:02-0400 Heart rate 70 /min Juan Brice MD Work Phone: [facility] 12-23-2024 12:02-0400 SaO2% (BldA) [Mass fraction] 98 % Juan Brice MD Work Phone: [facility] 11-20-2024 10:26-0400 Diastolic blood pressure 78 mm[Hg] Eduin Blackman MD Work Phone: [facility] [employer] 11-20-2024 10:26-0400 Systolic blood pressure 144 mm[Hg] Eduin Blackman MD Work Phone: [facility] 11-20-2024 09:29-0400 Body height 170.2 cm Eduin Blackman MD Work Phone: [facility] 11-20-2024 09:29-0400 Body mass index (BMI) [Ratio] 39.94 kg/m2 Eduin Blackman MD Work Phone: [facility] 11-20-2024 09:29-0400 Body weight 115.67 kg Eduin Blackman MD Work Phone: [facility] [employer] Comment on above: pt reported 11-20-2024 09:29-0400 Heart rate 76 /min Eduin Blackman MD Work Phone: [facility] 11-19-2024 10:32-0400 Body height 165.1 cm Bigg Pan MD Work Phone: [facility] [employer] 11-19-2024 10:32-0400 Body mass index (BMI) [Ratio] 42.43 kg/m2 Bigg Pan MD Work Phone: [facility] [employer] 11-19-2024 10:32-0400 Body weight 115.67 kg Bigg Pan MD Work Phone: [facility] [employer] [employer] 11-19-2024 10:32-0400 Diastolic blood pressure 78 mm[Hg] Bigg Pan MD Work Phone: [facility] [employer] 11-19-2024 10:32-0400 Heart rate 75 /min Bigg Pan MD Work Phone: [facility] [employer] [employer] 11-19-2024 10:32-0400 Systolic blood pressure 135 mm[Hg] Bigg Pan MD Work Phone: [facility] [employer] 09-30-2024 15:53-0500 Body temperature 97.9 [degF] Dr. Stephie Velarde MD Work Phone: [facility] 09-30-2024 15:53-0500 Diastolic blood pressure 82 mm[Hg] Dr. Stephie Velarde MD Work Phone: [facility] 09-30-2024 15:53-0500 Heart rate 76 /min Dr. Stephie Velarde MD Work Phone: [facility] 09-30-2024 15:53-0500 Respiratory rate 18 /min Dr. Stephie Velarde MD Work Phone: [facility] 09-30-2024 15:53-0500 SaO2% (BldA) [Mass fraction] 100 % Dr. Stephie Velarde MD Work Phone: [facility] 09-30-2024 15:53-0500 Systolic blood pressure 149 mm[Hg] Dr. Stephie Velarde MD Work Phone: [facility] 09-30-2024 02:59-0500 Body mass index (BMI) [Ratio] 41.9 kg/m2 Dr. Stephie Velarde MD Work Phone: [facility] 09-30-2024 02:59-0500 Body weight 117.[address] Stephie Velarde MD Work Phone: [facility] 09-10-2024 13:12-0500 Body temperature 97.6 [degF] Dr. Stephie Velarde MD Work Phone: [facility] 09-10-2024 13:12-0500 Diastolic blood pressure 97 mm[Hg] Dr. Stephie Velarde MD Work Phone: [facility] 09-10-2024 13:12-0500 Heart rate 79 /min Dr. Stephie Velarde MD Work Phone: [facility] 09-10-2024 13:12-0500 Respiratory rate 18 /min Dr. Stephie Velarde MD Work Phone: [facility] 09-10-2024 13:12-0500 SaO2% (BldA) [Mass fraction] 98 % Dr. Stephie Velarde MD Work Phone: [facility] 09-10-2024 13:12-0500 Systolic blood pressure 155 mm[Hg] Dr. Stephie Velarde MD Work Phone: [facility] 09-03-2024 14:33-0500 Body mass index (BMI) [Ratio] 41.1 kg/m2 Dr. Stephie Velarde MD Work Phone: [facility] 09-03-2024 14:33-0500 Body temperature 98.8 [degF] Dr. Stephie Velarde MD Work Phone: [facility] 09-03-2024 14:33-0500 Body weight 119.[address] Stephie Velarde MD Work Phone: [facility] 09-03-2024 14:33-0500 Diastolic blood pressure 104 mm[Hg] Dr. Stephie Velarde MD Work Phone: [facility] 09-03-2024 14:33-0500 Heart rate 87 /min Dr. Stephie Velarde MD Work Phone: [facility] 09-03-2024 14:33-0500 Respiratory rate 18 /min Dr. Stephie Velarde MD Work Phone: [facility] 09-03-2024 14:33-0500 SaO2% (BldA) [Mass fraction] 98 % Dr. Stephie Velarde MD Work Phone: [facility] 09-03-2024 14:33-0500 Systolic blood pressure 160 mm[Hg] Dr. Stephie Velarde MD Work Phone: [facility] 04-22-2024 16:37-0400 Body temperature 97.5 [degF] Dr. Stephie Velarde MD Work Phone: [facility] 04-22-2024 16:37-0400 Diastolic blood pressure 98 mm[Hg] Dr. Stephie Velarde MD Work Phone: [facility] 04-22-2024 16:37-0400 Heart rate 69 /min Dr. Stephie Velarde MD Work Phone: [facility] 04-22-2024 16:37-0400 Respiratory rate 18 /min Dr. Stephie Velarde MD Work Phone: [facility] 04-22-2024 16:37-0400 SaO2% (BldA) [Mass fraction] 100 % Dr. Stephie Velarde MD Work Phone: [facility] 04-22-2024 16:37-0400 Systolic blood pressure 162 mm[Hg] Dr. Stephie Velarde MD Work Phone: [facility] 04-15-2024 13:48-0400 Body mass index (BMI) [Ratio] 40.7 kg/m2 Dr. Stephie Velarde MD Work Phone: [facility] 11-29-2023 14:22-0400 Body height 170.[address] Stephie Velarde Work Phone: [facility] 11-29-2023 14:22-0400 Body mass index (BMI) [Ratio] 44.1 kg/m2 Dr. Stephie Velarde Work Phone: [facility] 11-29-2023 14:22-0400 Body temperature 98.2 [degF] Dr. Stephie Velarde Work Phone: [facility] 11-29-2023 14:22-0400 Body weight 128.[address] Stephie Velarde Work Phone: [facility] 11-29-2023 14:22-0400 Diastolic blood pressure 85 mm[Hg] Dr. Stephie Velarde Work Phone: [facility] 11-29-2023 14:22-0400 Heart rate 65 /min Dr. Stephie Velarde Work Phone: [facility] 11-29-2023 14:22-0400 Respiratory rate 18 /min Dr. Stephie Velarde Work Phone: [facility] 11-29-2023 14:22-0400 SaO2% (BldA) [Mass fraction] 97 % Dr. Stephie Velarde Work Phone: [facility] 11-29-2023 14:22-0400 Systolic blood pressure 149 mm[Hg] Dr. Stephie Velarde Work Phone: [facility] 10-04-2023 12:52-0500 Body mass index (BMI) [Ratio] 35.5 kg/m2 Dr. Stephie Velarde Work Phone: [facility] 10-04-2023 12:52-0500 Body temperature 98.2 [degF] Dr. Stephie Velarde Work Phone: [facility] 10-04-2023 12:52-0500 Body weight 102.[address] Stephie Velarde Work Phone: [facility] 10-04-2023 12:52-0500 Diastolic blood pressure 84 mm[Hg] Dr. Stephie Velarde Work Phone: [facility] 10-04-2023 12:52-0500 Respiratory rate 16 /min Dr. Stephie Velarde Work Phone: [facility] 10-04-2023 12:52-0500 SaO2% (BldA) [Mass fraction] 96 % Dr. Stephie Velarde Work Phone: [facility] 10-04-2023 12:52-0500 Systolic blood pressure 156 mm[Hg] Dr. Stephie Velarde Work Phone: [facility] 08-27-2023 15:06-0500 Body mass index (BMI) [Ratio] 43 kg/m2 Dr. Stephie Velarde Work Phone: [facility] 08-27-2023 15:06-0500 Body temperature 97.3 [degF] Dr. Stephie Velarde Work Phone: [facility] 08-27-2023 15:06-0500 Body weight 124.[address] Stephie Velarde Work Phone: [facility] 08-27-2023 15:06-0500 Diastolic blood pressure 86 mm[Hg] Dr. Stephie Velarde Work Phone: [facility] 08-27-2023 15:06-0500 Heart rate 87 /min Dr. Stephie Velarde Work Phone: [facility] 08-27-2023 15:06-0500 Respiratory rate 16 /min Dr. Stephie Velarde Work Phone: [facility] 08-27-2023 15:06-0500 SaO2% (BldA) [Mass fraction] 95 % Dr. Stephie Velarde Work Phone: [facility] 08-27-2023 15:06-0500 Systolic blood pressure 126 mm[Hg] Dr. Stephie Velarde Work Phone: [facility] 05-08-2023 12:40-0400 Body temperature 98.01 [degF] Darlene Forde [employer]IST Work Phone: [facility] 05-08-2023 12:40-0400 Body weight 132.09 kg Darlene Forde [employer] PAR[employer]IC.LEGAL BILLING SPECIALIST Work Phone: [facility] 05-08-2023 12:40-0400 Diastolic blood pressure 84 mm[Hg] Darlene Forde [employer] PAR[employer]IC.LEGAL BILLING SPECIALIST Work Phone: [facility] 05-08-2023 12:40-0400 Heart rate 65 /min Darlene Forde FL[employer] PAR[employer]IC.LEGAL BILLING SPECIALIST Work Phone: [facility] 05-08-2023 12:40-0400 Respiratory rate 18 /min Darlene Forde FL[employer] PARAM[employer]IC.LEGAL BILLING SPECIALIST Work Phone: [facility] 05-08-2023 12:40-0400 SaO2% (BldA) [Mass fraction] 99 % Darlene Forde FLIGHT PARAMEDIC.LEGAL BILLING SPECIALIST Work Phone: [facility] 05-08-2023 12:40-0400 Systolic blood pressure 142 mm[Hg] Darlene Forde FLIGHT PARAMEDIC.LEGAL BILLING SPECIALIST Work Phone: [facility] 03-15-2023 12:32-0400 Body temperature 97 [degF] Dr. Stephie Velarde Work Phone: [facility] 03-15-2023 12:32-0400 Diastolic blood pressure 79 mm[Hg] Dr. Stephie Velarde Work Phone: [facility] 03-15-2023 12:32-0400 Heart rate 67 /min Dr. Stephie Velarde Work Phone: [facility] 03-15-2023 12:32-0400 Respiratory rate 16 /min Dr. Stephie Velarde Work Phone: [facility] 03-15-2023 12:32-0400 Systolic blood pressure 153 mm[Hg] Dr. Stephie Velarde Work Phone: [facility] 03-14-2023 15:06-0400 Body mass index (BMI) [Ratio] 43.9 kg/m2 Dr. Stephie Velarde Work Phone: [facility] 11-08-2022 15:25-0400 Body height 170.[address] Stephie Velarde Work Phone: [facility] 11-08-2022 15:19-0400 Body mass index (BMI) [Ratio] 45.7 kg/m2 Dr. Stephie Velarde Work Phone: [facility] 11-08-2022 15:19-0400 Body temperature 98.2 [degF] Dr. Stephie Velarde Work Phone: [facility] 11-08-2022 15:19-0400 Body weight 132.[address] Stephie Velarde Work Phone: [facility] 11-08-2022 15:19-0400 Diastolic blood pressure 64 mm[Hg] Dr. Stephie Velarde Work Phone: [facility] 11-08-2022 15:19-0400 Heart rate 73 /min Dr. Stephie Velarde Work Phone: [facility] 11-08-2022 15:19-0400 Respiratory rate 17 /min Dr. Stephie Velarde Work Phone: [facility] 11-08-2022 15:19-0400 Systolic blood pressure 100 mm[Hg] Dr. Stephie Velarde Work Phone: [facility] 10-25-2022 13:16-0400 Diastolic blood pressure 89 mm[Hg] Dr. Stephie Velarde Work Phone: [facility] 10-25-2022 13:16-0400 Heart rate 69 /min Dr. Stephie Velarde Work Phone: [facility] 10-25-2022 13:16-0400 Respiratory rate 18 /min Dr. Stephie Velarde Work Phone: [facility] 10-25-2022 13:16-0400 Systolic blood pressure 153 mm[Hg] Dr. Stephie Velarde Work Phone: [facility] 08-31-2022 15:01-0500 Body mass index (BMI) [Ratio] 44.6 kg/m2 Dr. Stephie Velarde Work Phone: [facility] 08-31-2022 15:01-0500 Body temperature 98.2 [degF] Dr. Stephie Velarde Work Phone: [facility] 08-31-2022 15:01-0500 Body weight 129.[address] Stephie Velarde Work Phone: [facility] 08-31-2022 15:01-0500 Diastolic blood pressure 104 mm[Hg] Dr. Stephie Velarde Work Phone: [facility] 08-31-2022 15:01-0500 Heart rate 66 /min Dr. Stephie Velarde Work Phone: [facility] 08-31-2022 15:01-0500 Respiratory rate 17 /min Dr. Stephie Velarde Work Phone: [facility] 08-31-2022 15:01-0500 SaO2% (BldA) [Mass fraction] 99 % Dr. Stephie Velarde Work Phone: [facility] 08-31-2022 15:01-0500 Systolic blood pressure 190 mm[Hg] Dr. Stephie Velarde Work Phone: [facility] 08-09-2022 13:11-0500 Body mass index (BMI) [Ratio] 44.8 kg/m2 Dr. Stephie Velarde Work Phone: [facility] 08-09-2022 13:11-0500 Body temperature 98.5 [degF] Dr. Stephie Velarde Work Phone: [facility] 08-09-2022 13:11-0500 Body weight 129.[address] Stephie Velarde Work Phone: [facility] 08-09-2022 13:11-0500 Diastolic blood pressure 92 mm[Hg] Dr. Stephie Velarde Work Phone: [facility] 08-09-2022 13:11-0500 Heart rate 84 /min Dr. Stephie Velarde Work Phone: [facility] 08-09-2022 13:11-0500 Respiratory rate 12 /min Dr. Stephie Velarde Work Phone: [facility] 08-09-2022 13:11-0500 SaO2% (BldA) [Mass fraction] 99 % Dr. Stephie Velarde Work Phone: [facility] 08-09-2022 13:11-0500 Systolic blood pressure 156 mm[Hg] Dr. Stephie Velarde Work Phone: [facility] 11-01-2021 10:18-0400 Body height 168.9 cm Lynnette Ebony FLIGHT PARAMEDIC.LEGAL BILLING SPECIALIST Work Phone: [facility] 11-01-2021 10:18-0400 Body weight 120.84 kg Lynnette [place] FLIGHT PARAMEDIC.LEGAL BILLING SPECIALIST Work Phone: [facility] 11-01-2021 10:18-0400 Diastolic blood pressure 70 mm[Hg] Lynnette [place] FLIGHT PARAMEDIC.LEGAL BILLING SPECIALIST Work Phone: [facility] 11-01-2021 10:18-0400 Systolic blood pressure 124 mm[Hg] Lynnette Ebony FLIGHT PARAMEDIC.LEGAL BILLING SPECIALIST Work Phone: [facility] 02-03-2021 15:10-0400 Body temperature 98.1 [degF] Dr. Stephie Velarde Work Phone: [facility] 02-03-2021 15:10-0400 Diastolic blood pressure 68 mm[Hg] Dr. Stephie Velarde Work Phone: [facility] 02-03-2021 15:10-0400 Heart rate 75 /min Dr. Stephie Velarde Work Phone: [facility] 02-03-2021 15:10-0400 Respiratory rate 16 /min Dr. Stephie Velarde Work Phone: [facility] 02-03-2021 15:10-0400 SaO2% (BldA) [Mass fraction] 100 % Dr. Stephie Velarde Work Phone: [facility] 02-03-2021 15:10-0400 Systolic blood pressure 142 mm[Hg] Dr. Stephie Velarde Work Phone: [facility] 02-03-2021 09:19-0400 Body mass index (BMI) [Ratio] 40.6 kg/m2 Dr. Stephie Velarde Work Phone: [facility] 02-03-2021 09:19-0400 Body weight 114.[address] Stephie Velarde Work Phone: [facility] 09-12-2020 08:48-0500 Body Temperature 98.49 [degF] Aravind [...] Provider Facility Start: 06-09-2025 ambulatory Stephie Velarde [facility] ty:[facility] Start: 06-01-2025 ambulatory David Corral Facility:[facility] Start: 05-27-2025 End: 05-27-2025 ambulatory Stephie Velarde Facility:[facility] Start: 05-08-2025 ambulatory David Rileybenita Facility :[facility] Start: 05-06-2025 End: 05-06-2025 Dr. David Corral MD -[facility] Work Phone: Start: 05-06-2025 End: 05-06-[address] Stephie Velarde MD Work Phone: -[facility] Start: 04-22-2025 End: 04-22-2025 Dr. David Corral MD -[facility] Work Phone: Start: 04-22-2025 End: 04-22-[address] Stephie Velarde MD Work Phone: -[facility] Start: 04-16-2025 End: 04-16-2025 Darlene Chin RELATIONS LIAISON-C -[facility] al Medicine Work Phone: Start: 04-16-2025 End: 04-16-[address] Stephie Velarde MD Work Phone: [facility] Start: 04-15-2025 ambulatory Bebo Saxena y:[facility] Start: 04-15-2025 End: 04-15-[address] Stephie Velarde MD Work Phone: -[facility] Start: 04-15-2025 End: 04-15-2025 Berna Dangelo RELATIONS LIAISON-C -[facility] Work Phone: Start: 04-08-2025 End: 04-08-[address] Stephie Velarde MD Work Phone: -[facility] Start: 04-08-2025 End: 04-08-2025 Berna Dangelo RELATIONS LIAISON-C -[facility] Work Phone: Start: 03-25-2025 End: 03-25-[address] Stephie Velarde MD Work Phone: -[facility] Start: 03-25-2025 End: 03-25-2025 Dr. David Corral MD -[facility] Work Phone: Start: 03-18-2025 Berna Dangelo RELATIONS LIAISON-C -[facility] Start: 03-18-2025 End: 03-18-2025 Berna Dangelo RELATIONS LIAISON-C -[facility] Work Phone: Start: 03-18-2025 End: 03-18-[address] Stephie Velarde MD Work Phone: -[facility] Start: 03-16-2025 End: 03-16-[address] Stephie Velarde MD -[facility] Work Phone: Start: 03-16-2025 End: 03-16-2025 Dr. Stephie Velarde MD -[facility] Work Phone: Start: 03-16-2025 End: 03-16-[address] Stephie Velarde MD Work Phone: -[facility] Start: 03-03-[address] David Corral MD -[facility] Start: 03-03-2025 End: 03-03-[address] Stephie Velarde MD Work Phone: -[facility]iology [facility] Start: 03-03-2025 End: 03-03-[address] David Corral MD -[facility] Work Phone: Start: 03-03-2025 End: 03-03-2025 Dr. David Corral MD -[facility] Work Phone: Start: 03-03-2025 End: 03-03-[address] David Corral MD -[facility] Work Phone: Start: 03-03-2025 End: 03-03-2025 Dr. David Corral MD -[facility] Work Phone: Start: 03-03-2025 End: 03-03-[address] Stephie Velarde MD Work Phone: -[facility] Start: 03-03-2025 End: 03-03-2025 ambulatory David Corral Facility:[facility] Start: 02-12-2025 End: 02-12-2025 Follow-up encounter Aravind Carey MD Work Phone: [facility] Comment on above: PET/CT skull base to mid thigh Start: 02-09-2025 End: 02-09-2025 Subsequent hospital visit by physician Aravind Carey MD Work Phone: [facility] PET Comment on above: Abnormal CT of the a bdomen; Malignant neoplasm of both ovaries (HCC) Start: 02-09-2025 End: 02-09-2025 ambulatory [facility] Start: 01-26-2025 End: 01-26-2025 Telephone encounter Aravind Carey MD Work Phone: [facility] [place] Start: 01-23-2025 End: 01-23-2025 Office outpatient visit 10 minutes Aravind Carey MD Work Phone: [facility] Comment on above: Malignant neoplasm o f both ovaries (HCC) (Primary Dx); Incisional hernia, without obstruction or gangrene; History of ovarian cancer; Abnormal CT of the abdomen Start: 01-23-2025 End: 01-23-2025 ambulatory [facility] Start: 01-20-2025 End: 01-20-2025 Telephone encounter Aravind Carey MD Work Phone: [facility] Start: 01-15-2025 End: 01-15-2025 Office outpatient visit 15 minutes Juan Brice MD Work Phone: [facility] Comment on above: Incisional hernia, w ithout obstruction or gangrene (Primary Dx); History of ovarian cancer; Class 3 severe obesity with body mass index (BMI) of 40.0 to 44.9 in adult, unspecified obesity type, unspecified whether serious comorbidity present; Abnormal CT of the abdomen Start: 01-15-2025 End: 01-15-2025 ambulatory [facility] Start: 01-13-2025 End: 01-13-[address] David Corral MD -[facility] Work Phone: Start: 01-13-2025 End: 01-13-2025 Dr. David Corral MD -[facility] Work Phone: Start: 01-13-2025 End: 01-13-[address] Stephie Velarde MD Work Phone: [facility] Work Phone: Start: 01-08-2025 End: 01-08-[address] Stephie Velarde MD Work Phone: [facility] Work Phone: Start: 01-08-2025 End: 01-08-[address] David Corral MD [facility] Work Phone: Start: 01-08-2025 End: 01-08-2025 Dr. David Corral MD -[facility] Work Phone: Start: 01-08-2025 End: 01-08-2025 ambulatory Stephie Velarde Facility:[facility] Start: 01-01-2025 End: 03-03-2025 Follow-up encounter Eryn Lutz PA-C Work Phone: [facility] [place] Comment on above: CT abdomen pelvis wo IV contrast Start: 01-01-2025 End: 01-08-2025 Telephone encounter Eryn Lutz PA-C Work Phone: [facility] [place] Comment on above: Results (CT) Start: 12-31-2024 End: 01-01-2025 Follow-up encounter Harris Jordan PA-C Work Phone: [facility] - [place] Comment on above: Nerve conduction julianne t with EMG Start: 12-31-2024 End: 12-31-2024 Subsequent hospital visit by physician Eryn Lutz PA-C Work Phone: [facility] Comment on above: Abdominal wall bulge ; History of laparotomy; History of ovarian cancer Start: 12-31-2024 End: 12-31-2024 [facility] Start: 12-29-2024 End: 01-11-2025 Telephone encounter Eduin Blackman MD Work Phone: [facility] Comment on above: Other (MRi) Start: 12-29-2024 End: 12-29-2024 ambulatory [facility] Start: 12-29-2024 End: 12-29-2024 Subsequent hospital visit by physician Eduin Blackman MD Work Phone: [facility] Comment on above: Weakness Start: 12-25-2024 End: 12-25-[address] David Corral MD -[facility] Work Phone: Start: 12-25-2024 End: 12-25-[address] Stephie Velarde MD Work Phone: [facility] Work Phone: Start: 12-25-[address] David Corral MD -[facility] Start: 12-25-2024 End: 12-25-2024 Dr. David Corral MD -[facility] Work Phone: Start: 12-23-2024 End: 12-23-2024 ambulatory JUAN BRICE [facility] Start: 12-23-2024 End: 12-23-2024 Office outpatient new 45 minutes Juan Brice MD Work Phone: [facility] [place] Comment on above: Abdominal wall bulge (Primary Dx); History of laparotomy; History of ovarian cancer Start: 12-23-2024 ambulatory Ivan Salazar Facilit y:[facility] Start: 12-19-2024 End: 12-19-2024 ambulatory [facility] Start: 12-03-2024 End: 12-04-2024 Telephone encounter Juan Brice MD Work Phone: [facility] [place] Start: 11-24-2024 End: 11-27-2024 Telephone encounter Eduin Blackman MD Work Phone: [facility] Comment on above: Other (Scheduling ) Start: 11-20-2024 End: 11-20-2024 Office outpatient new 30 minutes Eduin Blackman MD Work Phone: [facility] Comment on above: Weakness (Primary Dx ) Start: 11-20-2024 End: 11-20-2024 ambulatory EDUIN BLACKMAN [facility] Start: 11-19-2024 End: 11-19-2024 ambulatory BIGG PAN [facility] Start: 11-19-2024 End: 11-19-2024 Office outpatient new 45 minutes Bigg Pan MD Work Phone: [facility] [place] Comment on above: Weakness (Primary Dx ) Start: 10-27-2024 End: 12-12-2024 Telephone encounter Valerio Kong MD Work Phone: [facility] [place] Comment on above: Appointment Start: 09-30-2024 Dr. Jose Fernandez MD -[facility] Work Phone: Start: 09-29-2024 Dr. Jose Fernandez MD -[facility] Work Phone: Start: 09-28-2024 Dr. Diana Crowell MD - [facility] Work Phone: Start: 09-27-2024 ambulatory Stephie Mariee ty:[facility] Start: 09-27-2024 Dr. Jerome Loja MD -[facility] Start: 09-26-2024 ambulatory Diana Crowell Facility :[facility] Start: 09-26-2024 End: 09-30-2024 Evaluation and management of inpatient Chemo Ramirez Facility:[facility] Start: 09-26-2024 End: 09-30-2024 Dr. Jose Fernandez MD -Progressive Care Unit Work Phone: Start: 09-10-2024 End: 09-10-2024 Berna SHARIF -[facility] Work Phone: Start: 09-10-2024 End: 09-10-2024 ambulatory Stephie Velarde Facility:[facility] Start: 09-03-2024 End: 09-03-2024 Dr. Stephie Velarde MD -[facility] Work Phone: Start: 09-03-2024 End: 09-03-2024 ambulatory Stephie Velarde Facility:[facility] Start: 09-03-2024 End: 09-03-2024 ambulatory [facility] Velarde Facility:[facility] Start: 06-12-2024 End: 06-12-2024 ambulatory Stephie Velarde Facility:[facility] Start: 06-12-2024 End: 06-12-2024 ambulatory Stephie Velarde Facility:[facility] Start: 12-26-2023 End: 12-26-2023 ambulatory MASONWELEETKADYLLAN VELARDE Facility:[facility] Start: 12-26-2023 Documentation procedure Mammog luisana Coordinator [facility] Department Start: 12-26-2023 Letter encounter Mammography Coordinator [facility] Department Start: 12-26-2023 End: 12-26-2023 Subsequent hospital visit by physician Screen Mammo [facility] Mamm[facility] Start: 11-30-2023 Non-patient / Non-visit Dr. Jaspal Velarde Work Phone: [facility] Start: 11-30-2023 End: 11-30-[address] Stephie Velarde Work Phone: [facility] Work Phone: Start: 11-30-2023 End: 11-30-[address] Stephie Velarde Work Phone: [facility]-Cardiovascula r Services Work Phone: Start: 11-29-2023 End: 11-29-[address] Stephie Velarde Work Phone: [facility] Work Phone: Start: 11-29-[address] Jose Velarde Work Phone: [facility] Oncology Start: 10-04-2023 End: 10-04-[address] Stephie Velarde Work Phone: [facility] Work Phone: Start: 08-27-2023 End: 08-27-[address] Stephie Velarde Work Phone: [facility] Work Phone: Start: 05-08-2023 End: 05-08-2023 ambulatory STEPHIE VELARDE Facility:[facility] Start: 05-08-2023 End: 05-08-2023 Patient encounter procedure Darlene Forde APRN.CNP Work Phone: [facility] Comment on above: Chronic dental pain (Primary Dx) Start: 11-08-[address] Jose Velarde Work Phone: [facility] Oncology Start: 11-08-2022 End: 11-08-[address] Stephie Velarde Work Phone: [facility] Cancer Care Start: 11-03-2022 End: 11-03-[address] Stephie Velarde Work Phone: [facility] Work Phone: Start: 11-03-2022 End: 11-03-[address] Stephie Velarde Work Phone: [facility] Start: 10-25-2022 End: 10-25-[address] Stephie Velarde Work Phone: [facility] Cancer Care Start: 08-31-2022 End: 08-31-[address] Stephie Velarde Work Phone: [facility] Start: 08-09-2022 End: 08-09-[address] Stephie Velarde Work Phone: [facility] Internal Medicine Start: 06-06-2022 Documentation procedure Mammog luisana Coordinator [facility] Start: 06-06-2022 Letter encounter Mammography Coordinator [facility] Department Start: 06-05-2022 End: 06-05-2022 Subsequent hospital visit by physician Screen Mammo [facility] Mammogram Comment on above: Encounter for [...] Start: 12-25-2024 Platelet mean volume determination Dr. Stephie Velarde MD Work Phone: Start: 09-30-2024 Blood [...] 06-05-2022 DEMARCUS SCREENING W BUDDY Re nee [place] FLIGHT PARAMEDIC.LEGAL BILLING SPECIALIST Work Phone: Start: 06-05-2022 Mammography Mammograph y [...] Phone: Start: 01-06-2021 Mammography Lynnette Guevara melvin FLIGHT PARAMEDIC.LEGAL BILLING SPECIALIST Work Phone: Start: 09-11-2020 Blood count complete [...] - S jessica or Plasma Darlene Forde FLIGHT PARAMEDIC.LEGAL BILLING SPECIALIST Work Phone: Start: 08-29-2017 Adult depression screening assessment Lynnette Beck FLIGHT PARAMEDIC.LEGAL BILLING SPECIALIST Work Phone: Start: 05-13-2012 Colonoscopy Lynnette charles FLIGHT PARAMEDIC.LEGAL BILLING SPECIALIST Work Phone: Bacteria identified in Blood by Culture Dr. Stephie Velarde Work Phone: H/O: tubal ligation History of t ubal ligation Dr. Stephie Velarde Work Phone: Urine culture Dr. Stephie Velarde Work Phone: Plan of Treatment Date Care Activity Detail Author Start: 05-06-2025 [facility] Start: 05-06-2025 Urinalysis complete panel - Urine [facility] Start: 05-06-2025 Vital signs measurements [facility] Start: 04-29-2025 Vital signs measurements [facility] Start: 04-29-2025 [facility] Start: 04-22-2025 Vital signs measurements [facility] Start: 04-15-2025 [facility] Start: 04-15-2025 Vital signs measurements [facility] Start: 04-08-2025 Urinalysis complete panel - Urine [facility] Start: 04-08-2025 Vital signs measurements [facility] Start: 04-01-2025 [facility] Start: 04-01-2025 Vital signs measurements [facility] Start: 03-30-2025 Influenza [facility] Start: 03-25-2025 [facility] Start: 03-25-2025 Vital signs measurements [facility] Start: 03-18-2025 Vital signs measurements [facility] Start: 03-18-2025 [facility] Start: 02-09-2025 End: 02-09-2025 Patient encounter procedure 02/09/2025 8:30 AM EDT Appointment [facility] [address] [place] [id number] Aravind Carey MD [address] [place] [address] [facility] Start: 02-06-2025 End: 02-06-2025 Patient encounter procedure 02/06/2025 2:00 PM EDT Appointment [facility] [address] [place] [phone] Aravind Carey MD [address] [place] [address] [facility] Start: 01-23-2025 End: 01-23-2026 PET+CT Bone from skull base to mid-thigh W [id number] IV PET/CT skull base to mid thigh Imaging Routine Abnormal CT of the abdomen Malignant neoplasm of both ovaries (HCC) Expected: 01/23/2025, Expires: 01/23/2026 [facility] Work Phone: Comment on above: Expected: 01/23/2025, Expires: Start: 01-23-2025 End: 01-23-2025 Patient encounter procedure 01/23/2025 12:30 PM EDT Office Visit [facility] [place] [address] [place] [phone] Aravind Carey MD [address] [place] [address] [facility] [place] Start: 01-15-2025 End: 01-15-2025 Patient encounter procedure 01/15/2025 10:30 AM EDT Office Visit [facility] [place] [address] [place] [phone] Juan Brice MD [address] [place] [address] [facility] [place] Start: 01-13-2025 End: 01-13-2025 Patient encounter procedure 01/13/2025 1:30 PM EDT Office Visit [facility] [place] [address] [place] [phone] Juan Brice MD [address] [place] [address] [facility] [place] Start: 12-29-2024 End: 12-29-2024 Patient encounter procedure 12/29/2024 10:30 AM EDT Appointment [facility] [address] [place] [phone] Eduin Blackman MD [address] [place] [address] [facility] Start: 12-25-2024 Cobalamin (Vitamin B12) [Mass/volume] in Serum or Plasma [facility] Start: 12-25-2024 Ferritin [Mass/volume] in Serum or Plasma [facility] Start: 12-25-2024 Lactate dehydrogenase measurement [facility] Start: 12-25-2024 Screening for malignant neoplasm of breast [facility] Start: 12-25-2024 [facility] Start: 12-25-2024 Cancer Ag 125 [Units/volume] in Serum or Plasma [facility] Start: 12-23-2024 End: 12-23-2025 CT Abdomen and Pelvis WO contrast CT abdomen pelvis wo IV contrast Imaging Routine Abdominal wall bulge History of laparotomy History of ovarian cancer Expected: 12/23/2024, Expires: 12/23/2025 [facility] Work Phone: Comment on above: Expected: 12/23/2024, Expires: Start: 12-23-2024 End: 12-23-2024 Patient encounter procedure 12/23/2024 11:45 AM EDT Office Visit [facility] [address] [place] [phone] Juan Brice MD [address] [place] [address] [address] [place] [address] [facility] Start: 12-19-2024 End: 12-19-2024 Patient encounter procedure 12/19/2024 3:15 PM EDT Appointment [facility] [address] [facility] [address] [place] [address] Eduin Blackman MD [facility] [place] [address] [facility] Start: 12-15-2024 End: 12-15-2024 Patient encounter procedure 12/15/2024 9:30 AM EDT Appointment [facility] [address] [place] [phone] Eduin Blackman MD [facility] [place], [place] [id number] [facility] Start: 11-20-2024 End: 11-20-2025 MR Cervical spine WO contrast MR cervical spine wo contrast Imaging Routine Weakness Expected: 11/20/2024, Expires: 11/20/2025 [facility] [employer] [facility] Work Phone: Comment on above: Expected: 11/20/2024, Expires: Start: 11-20-2024 End: 11-20-2025 Nerve conduction test with EMG Nerve conduction test with EMG Neurology Routine Weakness Expected: 11/20/2024 (Approximate), Expires: 11/20/2025 [facility] Comment on above: Expected: 11/20/2024 (Approximate), Expi res: 11/20/2025 Start: 11-20-2024 End: 11-20-2024 Patient encounter procedure 11/20/2024 9:30 AM EDT Office Visit [place] [id number] [place] [phone] Eduin Blackman MD [address] [place] [id number] [facility] Start: 09-30-2024 Patient discharge [facility] Start: 09-29-2024 [facility] Start: 09-29-2024 Removal of urinary catheter [facility] Start: 09-26-2024 Following clinical pathway protocol [facility] Start: 09-26-2024 Assessment of risk of venous thromboembolism [facility] Start: 09-26-2024 Insertion of catheter into peripheral vein [facility] Start: 09-26-2024 Measuring intake and output [facility] Start: 09-26-2024 Providing care according to standard [facility] Start: 09-26-2024 Provision of activity privileges [facility] Start: 09-26-2024 Referral to occupational therapist [facility] Start: 09-26-2024 Referral to service [facility] Start: 09-26-2024 [facility] Start: 09-26-2024 Admission procedure [facility] Start: 09-26-2024 Inhalation therapy procedure [facility] Start: 07-30-2024 Medicare Advantage Annual Wellness Visit Medicare Advantage Annual Wellness Visit [facility] Start: 03-30-2024 COVID-19 Vaccine ( season) COVID-19 Vaccine ( season) [facility] Start: 03-30-2024 COVID-19 Vaccine ( season) COVID-19 Vaccine () [facility] Start: 03-30-2024 Influenza vaccination Influenza Vaccine (Season Ended) [facility] Start: 09-24-2023 Diabetes Screening Diabetes Screening [facility] Start: 07-30-2023 Advance Directive Discussion Advance Directive Discussion [facility] Start: 07-30-2023 Behavioral Health Screening Behavioral Health Screening [facility] Start: 06-05-2023 Mammography [facility] Start: 06-05-2023 Screening for malignant neoplasm of breast Mammogram Screening [facility] Start: 03-30-2023 Covid-19 Vaccine ( season) Covid-19 Vaccine () [facility] Start: 03-30-2023 Influenza [facility] Start: 01-15-2023 Lipid 1996 panel - Serum or Plasma Lipid Screening [facility] Start: 01-15-2023 Lipid panel Lipid Screening [facility] Start: 01-15-2023 LIPID SCREEN LIPID SCREEN [facility] Start: 11-08-2022 Patient referral [facility] Work Phone: Start: 11-03-2022 Venous catheter care management [facility] Start: 11-01-2022 BP CONTROLLED (<130/80) BP CONTROLLED (<130/80) [facility] Start: 08-31-2022 Cancer Ag 125 [Units/volume] in Serum or Plasma [facility] Start: 08-31-2022 Immunoglobulin measurement [facility] Start: 08-31-2022 Serum immunofixation [facility] Start: 07-30-2022 Advance Directive Discussion Advance Directive Discussion [facility] Start: 07-30-2022 Depression Assessment Depression Assessment [facility] Start: 05-13-2022 Colonoscopy COLONOSCOPY [facility] Start: 05-13-2022 COLORECTAL CANCER SCREENING COLORECTAL CANCER SCREENING [facility] Start: 05-13-2022 Screening for malignant neoplasm of colon [facility] Start: 03-30-2022 Influenza vaccination [facility] Start: 01-06-2022 Mammography MAMMOGRAM [facility] Start: 09-24-2021 Creatinine measurement Creatinine Level [facility] Start: 09-24-2021 Diabetes: Estimated Glomerular Filtration Rate for Kidney Health Diabetes: Estimated Glomerular Filtration Rate for Kidney Health [facility] Start: 09-24-2021 Potassium measurement Potassium Level [facility] Start: 09-09-2021 Creatinine measurement Creatinine monitoring [facility] Work Phone: Start: 09-09-2021 Potassium monitoring Potassium monitoring [facility] Work Phone: Start: 07-30-2021 ADVANCE DIRECTIVE DISCUSSION ADVANCE DIRECTIVE DISCUSSION [facility] Start: 07-30-2021 DEPRESSION ASSESSMENT DEPRESSION ASSESSMENT [facility] Start: 03-10-2021 COVID-19 VACCINE (3 - Booster for Moderna series) COVID-19 VACCINE (3 - Booster for Moderna series) [facility] Start: 02-10-2021 COVID-19 VACCINE (3 - Moderna risk 4-dose series) COVID-19 VACCINE (3 - Moderna risk 4-dose series) [facility] Start: 02-03-2021 Administration of blood product [facility] Start: 02-03-2021 [facility] Start: 01-15-2021 DIABETES SCREEN DIABETES SCREEN [facility] Start: 01-15-2021 Diabetes Screening Diabetes Screening [facility] Start: 12-19-2020 BONE DENSITY BONE DENSITY [facility] Start: 12-19-2020 Bone Density Screening Bone Density Screening [facility] Start: 12-19-2020 Pneumococcal Vaccine: 65+ (2 - PPSV23 or PCV20) Pneumococcal Vaccine: 65+ (2 - PPSV23 or PCV20) [facility] Start: 12-19-2020 Pneumococcal Vaccine: 65+ (3 - PPSV23 or PCV20) Pneumococcal Vaccine: 65+ (3 - PPSV23 or PCV20) [facility] Start: 12-19-2020 Pneumococcal Vaccine: 65+ (3 of 3 - PPSV23 or PCV20) Pneumococcal Vaccine: 65+ (3 of 3 - PPSV23 or PCV20) [facility] Start: 12-19-2020 PNEUMOCOCCAL: 65+ (2 - PPSV23 if available, else PCV20) PNEUMOCOCCAL: 65+ (2 - PPSV23 if available, else PCV20) [facility] Start: 12-19-2020 PNEUMOVAX AGE 65 AND OVER WITH 5YR LOOKBACK (#1) PNEUMOVAX AGE 65 AND OVER WITH 5YR LOOKBACK (#1) [facility] Start: 12-19-2020 Screening for osteoporosis Bone Density Screening [facility] Start: 10-24-2020 Venous catheter care management [facility] Start: 09-28-2020 End: 09-28-2020 Office Visit 09/28/2020 Office Visit Gynecologic Oncology Shayna Celis PA [address] [place] [address] [phone] [facility] ON SITE COORDINATOR Oncology Start: 09-10-2020 Hospital Encounter 09/10/2020 Hospital Encounter IP Unit Aravind Carey MD [address] [place], [place] [id number] [facility] Start: 08-04-2020 Administration of blood product [facility] Start: 08-04-2020 [facility] Start: 06-14-2020 Following clinical pathway protocol [facility] Start: 05-10-2020 Venous catheter care management [facility] Start: 03-30-2020 Influenza vaccination Flu vaccine (#1) [facility] Work Phone: Start: 11-11-2019 Pneumococcal Vaccine: 50+ Years (3 of 3 - PCV20 or PCV21) Pneumococcal Vaccine: 50+ Years (3 of 3 - PCV20 or PCV21) [facility] Start: 02-05-2019 ANNUAL PCP TEAM CHRONIC DISEASE VISIT ANNUAL PCP TEAM CHRONIC DISEASE VISIT [facility] Start: 08-29-2018 Adult depression screening assessment DEPRESSION SCREENING [facility] Start: 2015 RSV Immunization for Adults (1 - Risk 60-74 years 1-dose series) RSV Immunization for Adults (1 - Risk 60-74 years 1-dose series) [facility] Start: 2015 RSV Vaccine (1 - 1-dose 60+ series) RSV Vaccine (1 - 1-dose 60+ series) [facility] Start: 11-10-2014 Pneumococcal 0-64 years Vaccine (2 of 3 - PPSV23) Pneumococcal 0-64 years Vaccine (2 of 3 - PPSV23) [facility] Work Phone: Start: 12-19-2005 Screening for malignant neoplasm of colon Colon cancer screen colonoscopy [facility] Work Phone: Start: 12-19-2005 Shingles Vaccine (1 of 2) Shingles Vaccine (1 of 2) [facility] Work Phone: Start: 12-19-2005 SHINGRIX VACCINE (1 of 2) SHINGRIX VACCINE (1 of 2) [facility] Start: 12-19-2005 Zoster Vaccines (1 of 2) Zoster Vaccines (1 of 2) [facility] Start: 12-19-2000 COLOGUARD (FIT-DNA) COLOGUARD (FIT-DNA) [facility] Start: 12-19-[address] COLONOGRAPHY [facility] Start: 12-19-2000 FECAL OCCULT BLOOD FECAL OCCULT BLOOD [facility] Start: 12-19-2000 Screening for malignant neoplasm of colon [facility] Start: 12-19-2000 SIGMOIDOSCOPY SIGMOIDOSCOPY [facility] Start: 1995 Diabetes screen Diabetes screen [facility] Work Phone: Start: 1995 Screening for malignant neoplasm of breast Breast cancer screen [facility] Work Phone: Start: 12-19-1976 Screening for malignant neoplasm of cervix Cervical cancer screen [facility] Work Phone: Start: 12-19-1974 DTaP/Tdap/Td vaccine (1 - Tdap) DTaP/Tdap/Td vaccine (1 - Tdap) [facility] Work Phone: Start: 12-19-1974 DTaP/Tdap/Td Vaccines (1 - Tdap) DTaP/Tdap/Td Vaccines (1 - Tdap) [facility] Start: 12-19-1974 Urine microalbumin profile [facility] Start: 12-19-1973 Annual PCP Team Chronic Disease Visit Annual PCP Team Chronic Disease Visit [facility] Start: 12-19-1973 BP Controlled (<130/80) BP Controlled (<130/80) [facility] in Start: 12-19-1973 Diabetes mellitus screening Diabetes Screening [facility] Start: 12-19-1973 Diabetes: Urine Albumin-Creatinine Ratio for Kidney Health Diabetes: Urine Albumin-Creatinine Ratio for [facility] Start: 12-19-1973 Hepatitis C screening Hepatitis C Screening [facility] Start: 12-19-1973 HIV SCREENING HIV SCREENING [facility] Start: 12-19-1970 HIV screening HIV screen [facility] Work Phone: Start: 1967 Depression Screening Depression Screening [facility] Start: 12-19-1965 Diabetic foot examination Diabetes: Foot Exam [facility] Start: 12-19-1965 Glaucoma screening Diabetes: Retinopathy Screening [facility] Start: 12-19-1965 Lipid panel Lipid screen [facility] Work Phone: Start: 12-19-1965 Preventive dental service Diabetes: Dental Exam [facility] Start: 1955 Echocardiography Echocardiogram [facility] Start: 1955 Hemoglobin A1c measurement Diabetes: Hemoglobin A1C [facility] Start: 1955 Hepatitis C screening Hepatitis C screen [facility] Work Phone: Start: 1955 Lipid panel Lipid Panel [facility] Start: 1955 Screening for malignant neoplasm of colon [facility] Start: 1955 Screening for osteoporosis Bone Density Scan [facility] Alanine aminotransfe rase [Enzymatic activity/volume] in Serum or Plasma [facility] Alanine aminotransfe rase [Enzymatic activity/volume] in Serum or Plasma [facility] Albumin [Mass/volume ] in Serum or Plasma [facility] Albumin [Mass/volume ] in Serum or Plasma [facility] Albumin [Moles/volum e] in Serum or Plasma [facility] Albumin/Globulin ratio [facility] Alkaline phosphatase [Enzymatic activity/volume] in Serum or Plasma [facility] Alkaline phosphatase [Enzymatic activity/volume] in Serum or Plasma [facility] Anion gap in Serum o r Plasma [facility] Anion gap in Serum o r Plasma [facility] Basic metabolic 2008 panel with ionized calcium - Serum or Plasma [facility] Bilirubin measuremen t, urine [facility] Bilirubin, total measurement [facility] Bilirubin, total measurement [facility] Blood chemistry [facility] BUN/Creatinine ratio [facility] BUN/Creatinine ratio [facility] Calcium [Mass/volume ] in Serum or Plasma [facility] Calcium [Mass/volume ] in Serum or Plasma [facility] Cancer Ag 125 [Units/volume] in Serum or Plasma [facility] Cancer Ag 125 [Units/volume] in Serum or Plasma [facility] Cancer Ag 125 [Units/volume] in Serum or Plasma [facility] Carbon dioxide, tota l [Moles/volume] in Central venous blood [facility] Carbon dioxide, tota l [Moles/volume] in Central venous blood [facility] CBC W Auto Different ial panel - Blood [facility] CBC W Auto Different ial panel - Blood [facility] CBC W Auto Different ial panel - Blood [facility] CBC W Auto Different ial panel - Blood [facility] CBC W Auto Different ial panel - Blood [facility] CBC W Auto Different ial panel - Blood [facility] Comprehensive metabo lic 1999 panel - Serum or Plasma [facility] Comprehensive metabo lic 1999 panel - Serum or Plasma [facility] Creatinine [Mass/vol ume] in Serum or Plasma [facility] Creatinine [Mass/vol ume] in Serum or Plasma [facility] EKG 12 Lead EKG 12 Lead ECG Routine 09/09/2020 12:50 PM EST [facility] Work Phone: Electrophoresis: [id number] [facility] Electrophoresis: juani ma globulin [facility] Erythrocyte mean corpuscular volume determination [facility] Erythrocyte mean corpuscular volume determination [facility] Ferritin [Mass/volum e] in Serum or Plasma [facility] Folate [Moles/volume ] in Serum or Plasma [facility] Globulin measurement [facility] Glucose [Mass/volume ] in Serum or Plasma [facility] Glucose [Mass/volume ] in Serum or Plasma [facility] Hematocrit [Volume Fraction] of Blood [facility] Hematocrit [Volume Fraction] of Blood [facility] Hemoglobin [Mass/vol ume] in Blood [facility] Hemoglobin [Mass/vol ume] in Blood [facility] Hemoglobin [Presence ] in Urine [facility] Home BIPAP or CPAP Home BIPAP or CPAP Respiratory Care Routine Daily until discontinued starting 09/10/2020 [facility] Work Phone: Comment on above: Daily until discontinued starting 2020 IgA [Mass/volume] in Serum or Plasma [facility] IgG [Mass/volume] in Serum or Plasma [facility] IgM [Mass/volume] in Serum or Plasma [facility] Iron and Iron bindin g capacity panel - Serum or Plasma [facility] Lactate dehydrogenas e measurement [facility] Lactate dehydrogenas e measurement [facility] Lactate dehydrogenas e measurement [facility] Lactate dehydrogenas e measurement [facility] Leukocytes [#/volume ] in Blood [facility] Leukocytes [#/volume ] in Blood [facility] Magnesium measurement [facility] Magnesium measurement [facility] Magnesium measurement [facility] End: 12-01-2022 DEMARCUS SCREENING W BUDDY DEMARCUS SCREENING W BUDDY Radiology Routine Encounter for screening mammogram for breast cancer 1 Occurrences starting 11/01/2021 until 12/01/2022 [facility] Work Phone: Comment on above: 1 Occurrences starting 11/01/2021 until 12/01/2022 Mean corpuscular hemoglobin concentration determination [facility] Mean corpuscular hemoglobin concentration determination [facility] Mean corpuscular hemoglobin determination [facility] Mean corpuscular hemoglobin determination [facility] Measurement of keton es in urine using dipstick [facility] Measurement of renal function [facility] Measurement of renal function [facility] Microscopic observat ion [Identifier] in Vaginal fluid by Gram stain BACT/VLAD VAG GRAM STAIN Microbiology Routine Vaginal odor 11/01/2021 10:56 AM EDT [facility] Work Phone: Microscopic urinalysis [facility] MR Brain WO and W contrast IV [facility] Nebulizer therapy [facility] Treatment Respiratory Care Routine Every 6hr As Needed until discontinued starting 09/10/2020 [facility] Work Phone: Comment on above: Every 6hr As Needed until discontinued s tarting 09/10/2020 End: 12-29-2024 Nerve conduction test with EMG [facility] Work Phone: Comment on above: Once for 1 Occurrences starting 12/30/19 until 12/29/2024 Neutrophil count [facility] Neutrophil count [facility] Neutrophil percent differential count [facility] Neutrophil percent differential count [facility] Oxygen therapy [[facility] Data Set] Initiate Oxygen Therapy Protocol Respiratory Care Routine Daily until discontinued starting 09/10/2020 [facility] Work Phone: Comment on above: Daily until discontinued starting 2020 Patient referral [facility] Work Phone: End: 02-09-2025 PET+CT Bone from skull base to mid-thigh W [id number] IV [facility] Work Phone: Comment on above: Once for 1 Occurrences starting 02/10/20 until 02/09/2025 pH of Urine [facility] Platelets [#/volume] in Blood [facility] Platelets [#/volume] in Blood [facility] Potassium measurement [facility] Potassium measurement [facility] Protein [Mass/time] in 24 hour Urine [facility] Protein electrophore sis panel - Serum or Plasma [facility] Red blood cell count [facility] Red blood cell count [facility] Red cell distributio n width determination [facility] Red cell distributio n width determination [facility] Serum chloride measurement [facility] Serum chloride measurement [facility] Serum protein electrophoresis [facility] Sodium measurement [facility] Sodium measurement [facility] Specific gravity of Urine [facility] Spirometry panel Incentive zofia metry Respiratory Care Routine Every 2hr while awake until discontinued starting 09/10/2020 [facility] Work Phone: Comment on above: Every 2hr while awake until discontinued starting 09/10/2020 Total protein measurement [facility] Total protein measurement [facility] Urea nitrogen [Mass/volume] in Serum or Plasma [facility] Urea nitrogen [Mass/volume] in Serum or Plasma [facility] Urinalysis complete panel - Urine [facility] Urinalysis complete panel - Urine [facility] Urine blood test [facility] Urine dipstick for glucose [facility] Urine dipstick for leukocyte esterase [facility] Urine dipstick for nitrite [facility] Urine dipstick for protein [facility] Urine examination [facility] Urine microscopy: epithelial cells [facility] Urine Microscopy: wh ite cells [facility] Urobilinogen [Presen ce] in Urine [facility] XR Knee 3 Views [facility] XR Spine Lumbar and Sacrum GE 4 Views [facility] Immunizations Immunization Date Immunization Notes Care Provider [facility] 06-12-2024 Seasonal trivalent influenza vaccine, adjuvanted, preservative free Dr. Stephie Vealrde MD Work Phone: [facility] 06-12-2024 influenza virus vaccine, unspecified formulation Aravind Carey MD Work Phone: [facility] 01-13-2021 Covid (Moderna) Dr. Dennys Velarde MD Work Phone: [facility] 12-13-2020 Covid (Moderna) Dr. Dennys Velarde MD Work Phone: [facility] 03-30-2020 influenza virus vaccine, unspecified formulation Bigg Pan MD Work Phone: [facility] 07-02-2017 influenza, injectabl e, quadrivalent, contains preservative Lynnette Ebony HARONKAYLA Work Phone: [facility] Work Phone: 07-02-2017 influenza, injectabl e, quadrivalent, preservative free Dr. Stephie Velarde MD Work Phone: [facility] 07-02-2017 influenza virus vaccine, unspecified formulation Darlene Forde FL[employer] PAR[employer]IC[employer]LEGAL BILLING SPECIALIST Work Phone: [facility] 06-08-2016 influenza, injectabl e, quadrivalent, contains preservative Lynnette [place] [employer] PARAMEDIC.LEGAL BILLING SPECIALIST Work Phone: [facility] 05-05-2015 influenza, injectabl e, quadrivalent, contains preservative Lynnette [place] FLIGHT PARAMEDIC.LEGAL BILLING SPECIALIST Work Phone: [facility] 05-05-2015 influenza, injectabl e, quadrivalent, preservative free Dr. Stephie Velarde MD Work Phone: [facility] 09-15-2014 pneumococcal conjuga te vaccine, 13 valent Lynnette [place] FLIGHT PARAMEDIC.LEGAL BILLING SPECIALIST Work Phone: [facility] Payers Date Payer Category Payer [facility] [id number] 2024 Self-pay [id number] 2023 Medicare HMO [employer] [id number] 2022 Unknown [id number] 2021 Medicaid [facility] MEDICAID [id number] 2021-[facility] [phone] [address] [place] [address] Medicaid [id number] 2021 Medicaid [id number] 2021 Medicare [id number] 2020 Unknown [id number] 2019 Unknown [id number] Medicare MEDICARE PART A B [id number] Private Health Insurance [id number] Unknown [id number] Unknown [id number]. 462 Unknown [id number] 2.16.840.1.265892.3.579.2. 462 Unknown [id number] [id number]. 462 Unknown [id number] 2.16.840.1.749152.3.579.2. 462 Unknown [id number] 2.16.840.1.035915.3.579.2. 462 Unknown [id number] 2.16.840.1.798255.3.579.2. 462 Unknown [id number] 2.16.840.1.213784.3.579.2. 462 Unknown [id number] 2.16.840.1.428808.3.579.2. 462 Unknown [id number] 2.16.840.1.690057.3.579.2. 462 Unknown [id number] 2.16.840.1.749702.3.579.2. 462 Unknown [id number]. 462 Unknown [id number] 2.840.1.761219.3.579.2. 462 Unknown [id number] 2.840.1.257576.3.579.2. 462 Unknown [id number] 2.840.1.138638.3.579.2. 462 Unknown [id number] 2.16840.1.218709.3.579.2. 462 Unknown [id number] 2.840.1.231055.3.579.2. 462 Unknown [id number] 2.16.840.1.007412.3.579.2. 462 Unknown [id number] 2.16.840.1.510662.3.579.2. 462 Unknown [id number] 2.16.840.1.176234.3.579.2. 462 Unknown [id number] 2.16840.1.435492.3.579.2. 462 Unknown [id number] 2.16840.1.849735.3.579.2. 462 Unknown [id number] 2.16.840.1.449013.3.579.2. 462 Unknown [id number] 2.16.840.1.958945.3.579.2. 462 Unknown [id number] 2.16.840.1.777944.3.579.2. 462 Unknown [id number] 2.16.840.1.184535.3.579.2. 462 Unknown [id number] 2.16.840.1.051010.3.579.2. 462 Unknown [id number] 2.16.840.1.914631.3.579.2. 462 Unknown [id number] 2.16.840.1.725477.3.579.2. 462 Unknown [id number] 2.16.840.1.950357.3.579.2. 462 Unknown [id number] 2.16.840.1.960840.3.579.2. 462 Unknown [id number] 2.16.840.1.985893.3.579.2. 462 Social History Date Type Detail Facility Start: 09-09-2020 End: 02-18-2025 Tobacco smoking status NHIS Former smoker [facility] Start: 09-09-2020 End: 05-08-2023 Tobacco use and exposure Never used [employer] Work Phone: Start: 09-09-2020 End: 07-18-2022 Alcohol intake Current drinker of alcohol (finding) [employer] Work Phone: Start: 09-09-2020 Alcohol Comment rare [employer] Work Phone: Start: 1955 Sex Assigned At Not on file S [employer] Work Phone: Start: 10-22-2021 End: 11-01-2021 Exposure to SARS-CoV-2 (event) Not sure [employer] Work Phone: History of tobacco use Cigarette Smoker [facility] Start: 05-01-2018 End: 01-15-2025 Cigarettes smoked current (pack per day) - Reported 0.5 [facility] Start: 11-01-2021 End: 05-08-2023 Alcohol intake Current non-drinker of alcohol (finding) [facility] History of tobacco use Current smoker [facility] Start: 08-09-2022 End: 01-04-2023 Tobacco smoking status NHIS Unknown if ever smoked [facility] Start: 11-16-2020 Non-smoker [facility] Start: 1955 Sex Assigned At Female W [facility] Start: 05-08-2023 End: 01-15-2025 Tobacco use panel [facility] National Score (1-10 0), lower number is lower risk 96 [facility] Start: 11-19-2024 End: 12-23-2024 Alcoholic beverage intake Ex-drinker (finding) [employer] Start: 02-27-2022 Sex Female (finding) [employer] [facility] Procedure Code Equipment Code Equipment [...] Result Facility 09-30-[address] [facility] Work Phone: Mental Status Date Assessment Result Facility 09-30-2024 Cognitive function Voice/Name [facility] Work Phone: 04-22-2024 Cognitive function Awake;Alert;A ppropriate;Fo llows Commands [facility] Work Phone: 04-15-2024 Cognitive function Voice/Name [facility] Work Phone: 03-15-2023 Cognitive function Voice/Name [facility] Work Phone: 02-03-2021 Cognitive function Voice/Name [facility] Work Phone: Clinical Notes 11-01-2021 to 03-25-2025 Note Date & Type Note Facility 03-25-2025 Progress note Note Date/Time March 25, 2025 10:09am [facility] [address] [place], [place] [address]olena [place] [address] OFFICE VISIT Date of Service: 03/25/25917 MR#: [id number] Acct: [id number] Name: BRITTA YOUNG Rep #: [id number] : 1955 From: David Corral MD Age/Sex: 69/F [place] [facility] Status: Signed HPI Subjective Date of Service [...] with a ovarian primary. 04/23/20: Evaluated by solution lead/onc, Dr. Aravind Carey. Due to extensive [...] hysterectomy, bilat salpingo-oophorectomy and tumor debulking at [facility] under the care of Dr. Carey. Pathology [...] vascular changes. 02/12/2025 Had PET/CT done at [facility] which showed L sided cervical node and [...] (if applicable) CC: Stephie Velarde MD ~ [facility] Work Phone: 1(696) 360-722308-05-2025 Radiology Diagnostic study note [facility] Imaging Services [address] [place] [address] Knee 4 or More Views MR#: [id number] Acct: [id number] Name: BRITTA YOUNG Rep #: [id number] : 1955 F 69 From: Juno Lion MD PCP: Dr. David Corral MD Status: REG CL I Study:Knee 4 or More Views Date of Exam: 03/03/25 Exam# [id number] Ordering Dr: Leonard Corral MD PROCEDURE: Right [...] osteoarthrosis of the right knee. Reading Location: [facility] CC: Dr. David Corral MD ~ [employer]: Signed [facility]08-05-2025 Radiology Diagnostic study note [facility] Imaging Services [address] [place] [address] Knee 4 or More Views MR#: [id number] Acct: [id number] Name: BRITTA YOUNG Rep #: [id number] : 1955 F 69 From: Juno Lion MD PCP: Dr. David Corral MD Status: REG CL I Study:Knee 4 or More Views Date of Exam: 03/03/25 Exam# [id number] Ordering Dr: Leonard Corral MD PROCEDURE: Left [...] left knee. Small knee effusion. Reading Location: [id number] CC: Dr. David Corral MD ~ [employer]: Signed [facility]07-17-2025 Telephone encounter Note* Telephone Encounter - Sammie Shepard RN - 02/12/2025 9:30 AM EDT Spoke to Dr. Corral's nurse and made her aware of PET results showing recurrent ovarian cancer. Faxed note with confirmation with PET results. She would like us to push the imaging thru to [facility]. Chart sent to [facility] to get images sent to them. [facility] [id number] Miscellaneous Notes* Telephone Encounter - Sammie Shepard RN - 02/12/2025 9:30 AM EDT Spoke to Dr. Corral's nurse and made her aware of PET results showing recurrent ovarian cancer. Faxed note with confirmation with PET results. She would like us to push the imaging thru to [facility]. Chart sent to [facility] to get images sent to them. * Telephone Encounter - Aravind Carey MD - 02/12/2025 9:18 AM EDT Pt son (POA) called with PET, will refer back to Dr Corral for consideration of chemo documented in this encounterSEast [place] Regional HospitalUuemao99-18-4986 Telephone encounter Note* Telephone Encounter - Aravnid Carey MD - 02/12/2025 9:18 AM EDT Pt son (POA) called with PET, will refer back to Dr Corral for consideration of chemo [facility] HospitalBpolxv55-74-1288 Telephone encounter Note* Telephone Encounter - Rosmery Gayle - 01/27/2025 10:08 AM EDT Spoke with Rita Hart, and will have to reschedule appt. Prep discussed and faxed. Given aide central scheduling line to reschedule Pet appt. Memorial HospitalNawaxg77-54-8419 Miscellaneous Notes* Telephone Encounter - Rosmery Gayle - 01/27/2025 10:08 AM EDT Spoke with Rita Hart, and will have to reschedule appt. Prep discussed and faxed. Given aide central scheduling line to reschedule Pet appt. * Telephone Encounter - Rosmery Gayle - 01/26/2025 1:46 PM EDT LVM with patient and aide regarding CT scan. Appt is scheduled for 02/06/25 @ 2:00PM in [facility] documented in this encounterSEast [place] Regional HospitalQsgwdd74-80-2130 Telephone encounter Note* Telephone Encounter - Rosmery Gayle - 01/26/2025 1:46 PM EDT LVM with patient and aide regarding CT scan. Appt is scheduled for 02/06/25 @ 2:00PM in [facility] Memorial HospitalNhfgaj38-73-9244 Miscellaneous Notes* Telephone Encounter - Rosmery Gayle - 01/26/2025 1:46 PM EDT LVM with patient and aide regarding CT scan. Appt is scheduled for 02/06/25 @ 2:00PM in [facility] documented in this [facility]06-27-2025 History of Present illness Narrative* Aravind [...] medications for this visit. documented in this [facility]06-24-2025 Telephone encounter Note* Telephone Encounter - Rosmery Chea - 01/20/2025 3:32 PM EDT Spoke with patient's child, scheduled new patient appt for 01/23/25 @ 12:30 PM in [facility] Memorial HospitalXpkvdz56-01-3438 Miscellaneous Notes* Telephone Encounter - Rosmery Irwin - 01/20/2025 3:32 PM EDT Spoke with patient's child, scheduled new patient appt for 01/23/25 @ 12:30 PM in [facility] documented in this encounterSEast [place] Regional HospitalVudvwo68-01-[address] Corral's office and faxed over referral and today's OV. Also left VM for Deepa asking for Cara's fax number to send over OV and [facility]SA[facility]06[facility] History of Present illness Narrative* Juan Brice MD - 01/15/2025 10:30 AM EDT Images from the original note were not included. [facility] Advanced Laparoscopic Surgery Patient Name: Britta [...] hernia, without obstruction or gangrene (Primary) - [facility] Gynecologic Oncology; Future History of ovarian cancer - [facility] Gynecologic Oncology; Future Class 3 severe obesity with body mass index (BMI) of 40.0 to 44.9 in adult, unspecified obesity type, unspecified whether serious comorbidity present Abnormal CT of the abdomen - [facility] Gynecologic Oncology; Future Ms. Young is a [...] with possible mesh Initial Testing: Referral to ON SITE COORDINATOR ONC, Dr. Carey Clearance: PAT Location: [facility] I personally performed the evaluation and management [...] medications for this visit. documented in this [facility]06-17-2025 Evaluation note* Diagnosis Onset Date Resolution [...] 22, 2025 1:00pm Hypokalemia resolved March 1:00pm [facility] Work Phone: [phone] Evaluation note* Diagnosis Onset Date Resolution Status [...] 8:15am Hypokalemia resolved May 06, 2025 8:15am [facility] Work Phone: 1(954) 735-455106-17-2025 Progress note Author David Corral [facility] Note Date/Time January 13, 2025 3:55 pm [facility] [place] [place] [facility] [address] [place] [address] OFFICE VISIT Date of Service: 01/13/25 1523 MR#: [id number] Acct: [id number] Name: BRITTA YOUNG Rep #: [id number] : 1955 From: David Corral MD Age/Sex: 69/F Location[place] [facility] [place] Status: Signed HPI Subjective Date of Service [...] with a ovarian primary. 04/23/20: Evaluated by solution lead/onc, Dr. Aravind Carey. Due to extensive [...] hysterectomy, bilat salpingo-oophorectomy and tumor debulking at [facility] under the care of Dr. Carey. Pathology [...] still in [place]. Her walking is improving. [facility] Medical History First degree burn of left [...] fallen in the past year?: No 01/13/25 7363 <Electronically signed by David Vega> Date _ David Corral MD Cosigner Signature: Date (if applicable) CC: Dr. Stephie Velarde MD ~ [facility] Work Phone: [phone] Telephone encounter Note* Telephone Encounter - Nima [...] to other clients. Pt has been rescheduled. [facility] HospitalPaccvs26-92-3211 Miscellaneous Notes* Telephone Encounter - Nima Desir [...] results. Requested return call. documented in this encounterSEast [place] [facility] HospitalUaaptu28-60-9221 Telephone encounter Note* Telephone Encounter - Eryn Lutz PA-C - 01/06/2025 1:18 PM EDT Spoke to patient's son, JONNA. Rec'd patient f/u in office to discuss results and next steps. Scheduled for next Sunday, 01/13 at 1:30. Memorial HospitalEukybh72-01-6970 Telephone encounter Note* Telephone Encounter - Keren Casper MA - 01/06/2025 1:18 PM EDT Son returned call- which I returned back but had to leave a voicemail. Soha GRANADOS [facility] HospitalRovmdx46-36-9744 Miscellaneous Notes* Telephone Encounter - Keren Casper [...] answer ANY Lima MA documented in this encounterSEast [place] [facility] HospitalBpkecu52-31-7292 Telephone encounter Note* Telephone Encounter - Keren [...] with further information and questions. Soha GRANADOS [facility] HospitalTcyape45-93-9371 Telephone encounter Note* Telephone Encounter - Keren Casper MA - 01/05/2025 10:29 AM EDT Left message for the patient to call back. Soha GRANADOS [facility] HospitalGttzns02-69-7984 Miscellaneous Notes* Telephone Encounter - Keren Casper MA - 01/05/2025 10:29 AM EDT Left message for the patient to call back. Soha GRANADOS * Telephone Encounter - Rahel Romero MA - 01/01/2025 2:40 PM EDT Called patient no answer ANY Lima MA documented in this encounterSEast [place] [facility] HospitalBhpriu74-48-2688 Telephone encounter Note* Telephone Encounter - Eryn Lutz PA-C - 01/02/2025 2:12 PM EDT Attempted to call again [facility] HospitalLvzymu80-12-0350 Telephone encounter Note* Telephone Encounter - Eryn Lutz PA-C - 01/01/2025 4:[address] results with Dr. Brice- Attempted to call patient to discuss results. Requested return call. [facility] HospitalTmidlv46-90-4415 Telephone encounter Note* Telephone Encounter - Rahel Romero MA - 01/01/2025 2:40 PM EDT Called patient no answer ANY Lima MA [facility] HospitalRudlbo02-40-6346 [facility] neurology lab EMG/NCS report: Patient: Britta [...] This dictation was done by using the [employer] dictation system. It has been proofread but still may contain unrecognized voice recognition errors.[facility] HospitalLoHaria [facility] HospitalGVC69-33-3891 Telephone encounter Note* Telephone Encounter - Vandana Martin Mariam - 12/29/2024 8:55 AM EDT Name of caller: Hailey Contact phone number: [phone] Relationship to Patient: [facility] Provider: Dr. Blackman Practice: Neuroscience Chief Complaint/Reason [...] business hours to return their call: Yes [facility] HospitalPthrqp67-58-3195 Miscellaneous Notes* Telephone Encounter - Vandana Becerra - 12/29/2024 8:55 AM EDT Name of caller: Hailey Contact phone number: [phone] Relationship to Patient: [facility] Provider: Dr. 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 edema copy technician otto March 16, 2025 2:00pm Hypertension chronic [...] 9:45am Hypokalemia resolved March 18, 2025 9:45am [facility] Work Phone: [phone]) 737-377405-29-2025 Evaluation note* Diagnosis Onset Date Resolution Status [...] jairo 2024 2:00pm Bilateral 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 extremity edema copy technician otto March 16, 2025 2:00pm Hypertension chronic [...] February 8:15am Iron deficiency anemia acute [facility] 2024 8:15am Ovarian mass, left acute March 25, 2025 8:15am Edema of left lower extremity chroni c March 25, 2025 8:15am Mass of peritoneum chronic March 25, 2025 8:15am Ovarian cancer chronic February 8:15am Hypokalemia resolved March 25, 2025 8:15am Chemotherapy management, encounter for acute March 25 8:38am Ovarian cancer chronic February 8:38am [facility] Work Phone: [phone]) 817-566405-29-2025 Evaluation note* Diagnosis Onset Date Resolution Status [...] Ovarian cancer chronic April 08, 2025 8:20am [facility] Work Phone: [phone] Evaluation note* Diagnosis Onset Date Resolution Status [...] 15, 2025 7:30am Hypokalemia resolved March 7:30am [facility] Work Phone: [phone] Evaluation note* Diagnosis Onset Date Resolution Status [...] 2025 7:37am Hypertension chronic April 162024 12:29pm [facility] Work Phone: [phone]) 131-259805-29-2025 Evaluation note* Diagnosis Onset Date Resolution Status [...] 2025 1:11pm Ovarian cancer chronic February 1:11pm [facility] Work Phone: [phone]) [phone] History of Present illness Narrative* Juan Brice MD - 12/23/2024 11:45 AM EDT Images from the original note were not included. [facility] Advanced Laparoscopic Surgery Patient Name: Britta [...] Former smoker. Notes reviewed: - Cara Fernandes [facility], 11/17/24 Data reviewed: - CT abd/pel, 09/15/20: [...] (!) 144/78 11/19/24 135/78 documented in this [facility]05-08-2025 Telephone encounter Note* Telephone Encounter - Nima Desir MA - 12/04/2024 11:53 AM EDT Spoke to Deepa and pt is scheduled on 12/23/24 due to pt other appt conflict [facility] HospitalBbkmwn57-51-4244 Miscellaneous Notes* Telephone Encounter - Nima Desir MA - 12/04/2024 11:53 AM EDT Spoke to Deepa and pt is scheduled on 12/23/24 due to pt other appt conflict * Telephone Encounter - Marcus Thomas MA - 12/03/2024 4:09 PM EDT Isabelle from [facility] would like to know when patient is going to be scheduled. She can be reached at [phone] documented in this [facility]05-07-2025 Telephone encounter Note* Telephone Encounter - Marcus Thomas MA - 12/03/2024 4:09 PM EDT Isabelle from [facility] would like to know when patient is going to be scheduled. She can be reached at [phone] Memorial HospitalWvdqei70-99-0606 Miscellaneous Notes* Telephone Encounter - Leanne Bazzi - 11/24/2024 10:27 AM EDT We have been unable to reach your patient to schedule their testing. Test Name: nct/emg 1st Attempt: 11/20 2nd Attempt: 11/21 3rd attempt; 11/24 documented in this encounterSEast [place] [facility] HospitalDicdmk75-87-3535 Telephone encounter Note* Telephone Encounter - Leanne Rasconley - 11/24/2024 10:27 AM EDT We have been unable to reach your patient to schedule their testing. Test Name: nct/emg 1st Attempt: 11/20 2nd Attempt: 11/21 3rd attempt; 11/24 Memorial HospitalOkdais17-55-9324 History of Present illness Narrative* Eduin Blackman [...] is no overt dysmetria nor dysdiadochokinesia with exblvm-ou-lggh or rapid alternating movements. Gait Examination: defer due to fall risk documented in this [facility]04-23-2025 History of Present illness Narrative* Bigg [...] Medical History: Diagnosis Date Asthma Cancer (CMS/HCC) ([facility]) GERD (gastroesophageal reflux disease) History of blood [...] Diagnosis Plan 1. Weakness documented in this encounterSEast [place] [facility] HospitalOxranf23-50-8982 Telephone encounter Note* Telephone Encounter - Jocelyne Hwang - 10/27/2024 3:23 PM EDT Name of Caller: Hailey Contact Reason for Appointment: Hailey is requesting an appointment for pt. Please call to schedule Office Name: Neurosurgery [facility] HospitalGlzurg98-30-3722 Miscellaneous Notes* Telephone Encounter - Jocelyne Martin Eri - 10/27/2024 3:23 PM EDT Name of Caller: Hailey Contact Reason for Appointment: Hailey is requesting an appointment for pt. Please call to schedule Office Name: Neurosurgery documented in this [facility]03-04-2025 [facility]02-28-2025 Evaluation note* Diagnosis Onset Date Resolution [...] Ovarian cancer chronic December 25, 2024 1:34pm [facility] Work Phone: [phone]) [phone] Evaluation note* Diagnosis Onset Date Resolution Status [...] Ovarian cancer chronic January 13, 2025 3:17pm [facility] Work Phone: [phone]) 488-728302-05-2025 Evaluation note* Diagnosis Onset Date Resolution Status [...] Ovarian cancer chronic December 25, 2024 1:34pm [facility] Work Phone: [phone] Note* Letter - Coordinator, Mammography - 12/26/2023 9:58 PM EDT December 27, 2023 PID: [id number] Britta Young [address] [place] [address] Dear Ms. Young, We are pleased to [...] report will be kept on file at [facility] as part of your permanent medical record and are available for your continuing care. Thank you for allowing us to help in meeting your health care needs. Sincerely, Dr. Adler Interpreting Radiologist [facility] (Normal over 40) [facility]05-29-2024 Miscellaneous Notes* Letter - Coordinator, Mammography - 12/26/2023 9:58 PM EDT December 27, 2023 PID: [id number] Britta Young [address] [place] [address] Dear Ms. Young, We are pleased to [...] report will be kept on file at [facility] as part of your permanent medical record and are available for your continuing care. Thank you for allowing us to help in meeting your health care needs. Sincerely, Dr. Adler Interpreting Radiologist [facility] (Normal over 40) documented in this encounterOhiohealth Grady Memorial Hospital05-29-2024 NoteHNO ID: [id number] Author: MARIZA GALVEZ Mammo Tech Service: ? [...] PATIENT PRESENTS WITH AN IMPLANTABLE OR ATTACHED GAMING TABLE OPERATOR: No RADIOLOGY DEPARTMENT: Mammography PERIPHERAL IV DATA: Not applicable SIGNED BY: Go Eric December 26, 2023 4:28 [facility]05-29-2024 History of Present illness Narrative* Mariza Galvez [...] PATIENT PRESENTS WITH AN IMPLANTABLE OR ATTACHED GAMING TABLE OPERATOR: No RADIOLOGY DEPARTMENT: Mammography PERIPHERAL IV DATA: Not applicable SIGNED BY: Go Eric December 26, 2023 4:28 PM documented in this encounterOhiohealth Grady [facility] Hospital10-10-2023 NoteHNO ID: [id number] Author: Darlene Forde APRN.LEGAL BILLING SPECIALIST Service: ? Author Type: Nurse Practitioner Type: Progress Notes Filed: 05/08/2023 12:58 PM Note Text: This note was created using [employer]onto[employer]. Subjective Britta Young is a 67 year old female. 67 year old female with PMH HTN, GERD, CARLA, malignant ovarian CA (remission for 2 to 3 years) presents for mouth complaints. Chronic in nature Endorses that she has a longstanding history of needing dental work. Of note, she has been evaluated Family Dental, [facility] in [place], beginning of this year, stating she was evaluated and had x 2 teeth pulled. States she saw [facility], last year, and start of gum [...] history is provided by the patient. No manager style was used. Mouth/Lip Problem This is a [...] PAST MEDICAL HISTORY Diagnosis Date Pneumonia 2010 [facility]. Unspecified essential hypertension PAST SURGICAL HISTORY Procedure [...] CPAP mask Dx: CARLA G47.33 COMPR.STOCKING,THIGH,REG,X-LRG (COMP.STOCKING,THIGH,REG,X-LRG) [facility] Wear stockings through the day.remove at night. [...] and headaches. Hematological: Negative (more content not included)...[facility] 05-08-2023 History of Present illness Narrative* Darlene Forde APRN.LEGAL BILLING SPECIALIST - 05/08/2023 12:47 PM EDT This note [...] been evaluated Family [facility], [facility] in [place], beginning of this year, stating she was evaluated and had x 2 teeth pulled. States she saw [facility], last year, and start of gum [...] history is provided by the patient. No manager style was used. Mouth/Lip Problem This is a [...] PAST MEDICAL HISTORY Diagnosis Date Pneumonia 2010 [facility]. Unspecified essential hypertension PAST SURGICAL HISTORY Procedure [...] Wt 132.1 kg (291 lb 3.2 oz) GcG997% BMI 46.30 kg/m Physical Exam Vitals and [...] RX Augmentin Discussed red flags Darlene Forde APRN.LEGAL BILLING SPECIALIST documented in this encounterOhiohealth Grady Memorial Hospital11-08-2022 Miscellaneous Notes* Letter - Mammography Coordinator - 06/06/2022 10:49 AM EST June 06, 2022 PID: [id number] Britta Young [address] [place] [address] Dear Ms. Young, We are pleased to [...] report will be kept on file at [facility] as part of your permanent medical record and are available for your continuing care. Thank you for allowing us to help in meeting your health care needs. Sincerely, Dr. Joe Interpreting Radiologist [facility] (Normal over 40) documented in this encounterOhio[facility]11-07-2022 History of Present illness Narrative* Shanika [...] 05, 2022 1:00 PM documented in this encounterOhiohealth [facility]ady [facility]04-12-2022 Miscellaneous Notes* Telephone Encounter - Teena [...] needed. Lynnette Beck APRN.CNP documented in this encounterOhiohealth [facility]ady [facility]04-05-2022 History of Present illness Narrative* Lynnette [...] L1 SAB0 IAB0 Ectopic0 Multiple0 Live Births0 Shipping Receiving Manager History LMP: Postmenopausal Age at Menarche: Age at First : Age at Menopause: Shipping Receiving Manager History Comments: Sexual Activity: Not Currently; No partner data on record Contraception: No contraception data on record PAST MEDICAL HISTORY Diagnosis Date Pneumonia 2010 [facility]. Unspecified essential hypertension PAST SURGICAL HISTORY Procedure [...] external genitalia normal, normal Bartholin's glands, urethra, Solvay's glands, no vulvar lesions, physiologic discharge present, [...] RepHresh Lynnette Beck APRN.CNP documented in this encounterOhiohealth [facility]ady [facility] HospitalEvalutrinity health note* Diagnosis Encounter for gynecological examination (general) (routine) without abnormal findings- Primary Encounter for screening mammogram for breast cancer Vaginal odor Unspecified symptom associated with female genital organs [facility]* Diagnosis Onset Date Resolution Status Chronic [...] chronic Mass of peritoneum chronic Ovarian cancer [facility] Work Phone: Evaluation note* Diagnosis Chronic dental pain- Primary Unspecified disorder of the teeth and supporting structures documented in this encounter [facility]* Diagnosis Encounter for screening mammogram for breast cancer documented in this encounter [facility] note* Diagnosis Onset Date Resolution Status CKD [...] of unknown significance) chronic Ovarian cancer chronic [facility] Work Phone: Evaluation note* Diagnosis Weakness- Primary Other malaise and fatigue documented [facility] this encounter [facility]* Diagnosis Weakness- Primary Other malaise and fatigue documented [facility] this encounter [facility]* Diagnosis Abdominal wall bulge- Primary History of laparotomy History of ovarian cancer Personal history of malignant neoplasm of ovary documented in this encounter [facility]* Diagnosis Weakness Other malaise and fatigue documented [facility] this encounter [facility]* Diagnosis Abdominal wall bulge History of laparotomy History of ovarian cancer Personal history of malignant neoplasm of ovary documented in this encounter [facility]* Diagnosis Incisional hernia, without obstruction or [...] area, including retroperitoneum [facility] encounter [facility]* Diagnosis Malignant neoplasm of both ovaries (HCC)- Primary Incisional hernia, without obstruction or gangrene History of ovarian cancer Personal history of malignant neoplasm of ovary Abnormal CT of the abdomen Nonspecific (abnormal) findings on radiological and other examination of abdominal area, including retroperitoneum [facility] encounter [facility]* Diagnosis Abnormal CT of the abdomen Nonspecific (abnormal) findings on radiological and other examination of abdominal area, including retroperitoneum Malignant neoplasm of both ovaries (HCC) [facility] instructionsAmb[facility] Orders* Miscellaneous Order Time Frame: 0 Days, Location: None Selected * ONC Referral: ON SITE COORDINATOR Oncology Time Frame: 0 Days, Location: None Selected * ONC Referral: Surgery Time Frame: 0 Days, Location: None Selected [facility] Work Phone: Hospital Discharge instructionsAmbulatory Orders* Prior Authorization Referral - ONC/HEM Location: None Selected [facility] Work Phone: Hospital Discharge instructionsAmbulatory Orders* Orthopedics Location: None Selected [facility] Work Phone: Progress note Author Darlene Chin [facility] Note Date/Time April 16, 2025 1:44pm [facility] [address] [place] [address] [place] [address] OFFICE VISIT Date of Service: 04/16/25 MR#: [id number] Acct: [id number] Name: BRITTA YOUNG Rep #: [id number] : 1955 Provider: KOLE Chin Age/Sex: 69/F Location[place] [facility] [place] Status: Signed Intake Vital Signs 04/15/25 08:33 [...] high blood pressure readings at cancer treatment Special Delivery Messenger Required: No Accompanied by: Son Is patient [...] brought a list prior to being at [facility]. Will call over to review med list there. Pt denies chest pain, sob, vision changes, flushing. Pt has a headache due to not eating. Pt states she did not have med due to doing the chemo, pt's first reading was done shortly after sitting down from walking. Pt's son states bp is always high after walking. Pt now resides at home w/ son [facility] Medical History Knee osteoarthritis Bilateral leg weakness [...] pressure readings at cancer treatment Details: BRITTA YOUNG, is a 69 F who presents to [...] by Darlene WOODYC> Date _ Darlene Chin RELATIONS LIAISON-C Cosigner Signature: Date (if applicable) CC: ~ [facility] Work Phone: Progress note Author David Corral [facility] Note Date/Time April 22, 2025 2:26pm [facility] [address] [place] [address] OFFICE VISIT Date of Service: 04/22/25 1339 MR#: [id number] Acct: [id number] Name: BRITTA YOUNG Rep #: [id number] : 1955 From: David Corral MD Age/Sex: 69/F Location[place] [facility] [place] Status: Signed HPI Subjective Date of Service [...] with a ovarian primary. 04/23/20: Evaluated by solution lead/onc, Dr. Aravind Carey. Due to extensive [...] hysterectomy, bilat salpingo-oophorectomy and tumor debulking at [facility] under the care of Dr. Carey. Pathology [...] vascular changes. 02/12/2025 Had PET/CT done at [facility] which showed L sided cervical node and retroperitoneal activities. 03/18/2025 Started Hallie, dose dense Taxol and Carboplatin for Progressive disease.Stopped Zejula. 03/25/2025 C1D8 Taxol. 04/22/2025 Comes for C2D8 Taxol. Did not get C2D1 Avastin. Feels well. Interval History . [facility] Medical History Knee osteoarthritis Bilateral leg weakness [...] fallen in the past year?: No 04/22/25 9699 <Electronically signed by David Vega> Date _ David Corral MD Cosigner Signature: Date (if applicable) CC: Dr. Stephie Velarde MD ~ [facility] Work Phone: Progress note Author David Corral [facility] Note Date/Time May 06, 2025 9: 52am [facility] [address] [place] [address] OFFICE VISIT Date of Service: 05/06/2506 MR#: [id number] Acct: [id number] Name: BRITTA YOUNG Rep #: [id number] : 1955 From: David Corral MD Age/Sex: 69/F Location: [facility] [place] Status: Signed HPI Subjective Date of Service [...] with a ovarian primary. 04/23/20: Evaluated by solution lead/onc, Dr. Aravind Carey. Due to extensive [...] hysterectomy, bilat salpingo-oophorectomy and tumor debulking at [facility] under the care of Dr. Carey. Pathology [...] vascular changes. 02/12/2025 Had PET/CT done at [facility] which showed L sided cervical node and retroperitoneal activities. 03/18/2025 Started Hallie, dose dense Taxol and Carboplatin for Progressive disease.Stopped Zejula. 03/25/2025 C1D8 Taxol. 04/22/2025 Comes for C2D8 Taxol. Did not get C2D1 Avastin 05/06/2024 Comes for C3D1. BP is controlled. Feels well. Did not bring 24hr urinecollection. Interval History . [facility] Medical History Knee osteoarthritis Bilateral leg weakness [...] applicable) CC: Dr. Stephie Velarde MD ~ [facility] Work Phone: Reason for referral (narrative)* Diagnostic Procedure Only (Routine) - Authorized Specialty Diagnoses / Procedures Referred By Na t Referred To Contact [facility] Diagnoses Encounter for screening mammogram for breast cancer Procedures DEMARCUS SCREENING W BUDDY SCREENING DIGITAL BREAST TOMOSYNTHESIS BI SCREENING MAMMOGRAPHY BI 2-VIEW BREAST INC CAD Lynnette Beck APRN.LEGAL BILLING SPECIALIST [address] [place] [place] [address] [facility] [address] [place] [phone] Referral ID Status Reason Start Date Expiration Date Visits Requested Visits Authorized [id number] Authorized Auto-Generat ed Referral 11/01/2021 12/01/2022 1 1 [facility] for referral (narrative)* Diagnostic Procedure Only (Routine) - Closed Specialty Diagnoses / Procedures Referred By Na wang Referred To Contact [facility] Diagnoses Encounter for screening mammogram for breast cancer Procedures DEMARCUS SCREENING W BUDDY SCREENING DIGITAL BREAST TOMOSYNTHESIS BI SCREENING MAMMOGRAPHY BI 2-VIEW BREAST INC CAD Lynnette Beck APRN.LEGAL BILLING SPECIALIST [address] [place] [address] [facility] [address] [place] [address] Referral ID Status Reason Start Date Expiration Date V isits Requested Visits Authorized [id number] Closed Auto-Generate d Referral 11/01/2021 12/01/2022 1 1 [facility] (narrative)No reason for referral information available[facility] Work Phone: Rebzyg for visit Narrative* Diagnostic Procedure Only (Routine) - Closed Specialty Diagnoses / Procedures Referred By Na t Referred To Contact [facility] Diagnoses Encounter for screening mammogram for breast cancer Procedures DEMARCUS SCREENING W BUDDY SCREENING DIGITAL BREAST TOMOSYNTHESIS BI SCREENING MAMMOGRAPHY BI 2-VIEW BREAST INC CAD Lynnette Beck APRN.LEGAL BILLING SPECIALIST [address] [place] [address] [facility] [address] [place] [address] Referral ID Status Reason Start Date Expiration Date V isits Requested Visits Authorized [id number] Closed Auto-Generate d Referral 11/01/2021 12/01/2022 1 1 [facility] for visit Narrative* Hospital - Outpatient (Routine) - Closed Specialty Diagnoses / Procedures Referred By Na t Referred To Contact Neurology Diagnoses Weakness Procedures Nerve conduction test with EMG Eduin Blackman MD [address] [place] [address] Phone: tel: fax: Referral ID Status Reason Start Date Expiration Date Visits Re quested Visits Authorized [id number] Closed 11/20/2024 11/15/2025 1 1 [facility] for visit Narrative* Imaging (Routine) - Closed Specialty Diagnoses / Procedures Referred By Na t Referred To Contact Radiology Diagnoses Abdominal wall bulge History of laparotomy History of ovarian cancer Procedures CT abdomen pelvis wo IV contrast Eryn Lutz PA-C [address] [facility] [address] [place] [address] Phone: tel: fax: Referral ID Status Reason Start Date Expiration Date Visits Re quested Visits Authorized [id number] Closed 12/23/2024 12/23/2025 1 1 [facility] for visit Narrative* Imaging (Routine) - Closed Specialty Diagnoses / Procedures Referred By Na t Referred To Contact Radiology Diagnoses Abnormal CT of the abdomen Malignant neoplasm of both ovaries (HCC) Procedures PET/CT skull base to mid thigh Aravind Carey MD [address] [facility] [address] [place] [address] Phone: tel: fax: [facility] [address] [place] [address] Phone: tel: Referral ID Status Reason Start Date Expiration Date Visits Re quested Visits Authorized [id number] Closed 01/23/2025 01/23/2026 1 1 [facility] * Instructions* Mireya Daniels, RN - 09/09/2020 Shower with an antibacterial soap such as Dial or Safeguard. ARRIVE AT 12 NOON Please bring your [facility] Surgical Information folder on the day of [...] your surgeon. You may use the free drafter automotive design layout parking at the main entrance on [address] [place] [address], or the free parking in the [facility] parking deck ENTER THROUGH THE MAIN DOORS [...] through Care Everywhere. * Hysterectomy: Abdominal: Post-op (Australian) * Hysterectomy: Abdominal: Pre-op (Australian) * Oophorectomy: Open: Post-op (Australian) * Oophorectomy: Open: Pre-op (Australian) documented in this encounter* Instructions* Milena Kerr DO - 09/10/2020 Please follow your post operative care instructions given to you by your Chemical Dependency Professional Oncologist's office at your pre operative visit. Please call the office with questions or concerns and be sure to follow up at your scheduled post operative visit. documented in this encounter History of Present Illness * Leslie Matos DTR - 09/12/2020 8:57 AM EST Nutrition rescreen completed. Chart reviewed. Patient to be monitored and followed by the diet machine packaging technician. Dietitian available upon request. * Estefania [...] Voss DO - 09/11/2020 6:24 AM EST ON SITE COORDINATOR/ONC Progress Note Date: 09/11/2020 Time: 6:25 AM [...] 0.25 mg 0.25 mg Intravenous Q3H PRN Ylois Sandoval MD Or HYDROmorphone (DILAUDID) injection 0.5 [...] December 07, 2020 1 1:55am Power of Manager Gallery No December 07, 2020 11:55am Advance Directive Response Recorded Date/ Time Advance Directives No June 04, 2023 4:54pm Living Will No June 04 4:54pm Power of Manager Gallery No June 04, 2023 4:54pm Advance Directive Response Recorded Date/ Time Living Will No June 04 4:54pm Do you have a Healthcare Power of Manager Gallery? No June 04, 2023 4:54pm Living Will No December 07, 2020 1 1:55am Do you have a Healthcare Power of Manager Gallery? No December 07, 2020 11:55am Living Will No September 26, 2 025 4:51pm Do you have a Healthcare Power of Manager Gallery? No September 26, 2024 4:51pm Advance Directives No June 04, 2023 4:54pm Advance Directive Response Recorded Date/ Time Living Will No December 07, 2020 1 1:55am Do you have a Healthcare Power of Manager Gallery? No December 07, 2020 11:55am Living Will No September 26, 2 025 4:51pm Do you have a Healthcare Power of Manager Gallery? No September 26, 2024 4:51pm Advance Directives No June 04, 2023 4:54pm Advance Directive Response Recorded Date/ Time Living Will No December 07, 2020 1 1:55am Do you have a Healthcare Power of Manager Gallery? No December 07, 2020 11:55am Advance Directives No February 18 3:46pm Advance Directive Response Recorded Date/ Time Advance Directives No February 18 3:46pm Living Will No December 07, 2020 1 1:55am Do you have a Healthcare Power of Manager Gallery? No December 07, 2020 11:55am Advance Directive Response Recorded Date/ Time Living Will No March 18 11:00am Do you have a Healthcare Power of Manager Gallery? No March 18, 2025 11:00am Advance Directives No March 18, 2025 11:00am Advance Directive Response Recorded Date/ Time Living Will No April 01 11:55am Do you have a Healthcare Power of Manager Gallery? No April 01, 2025 11:55am Advance Directives No March 11:55am Advance Directive Response Recorded Date/ Time Living Will No April 08, 2025 10:25am Do you have a Healthcare Power of Manager Gallery? No April 08, 2025 10:25am Advance Directives No March 10:25am Advance Directive Response Recorded Date/ Time Living Will No April 15, 2025 11:00am Do you have a Healthcare Power of Manager Gallery? No April 15, 2025 11:00am Advance Directives No March 11:00am Advance Directive Response Recorded Date/ Time Living Will No April 29 8:48am Do you have a Healthcare Power of Manager Gallery? No April 29, 2025 8:48am Advance Directives No April 29, 2025 8:48am Summary Purpose Family History No Family History Records Found Relationship Condition Age at Onset Recorded Date/T tye grandmother Hypertension Unknown Diabetes mellitus Unknown mother Diabetes mellitus Unknown Malignant neoplasm of breast Unknown Hospital Course Note Shipping Receiving Manager/Onc Discharge Summary Pa tient Name: Britta Young [...] DATE CREATED AUTHOR AUTHOR'S ORGANIZ ATION 12/27/2023 [facility] DATE CREATED AUTHOR AUTHOR'S ORGANIZ ATION 02/15/2025 [facility] DATE CREATED AUTHOR AUTHOR'S ORGANIZ ATION 06/09/2025 [facility] Source Comments (unrecognize d section and content) In the event this informatio n is protected by the Federal Confidentiality of Alcohol and Drug Abuse Patient Records regulations: The Federal rules restrict any use of the information to criminally investigate or prosecute any alcohol or drug abuse patient.[facility] Hospital[facility] the event this information is protected by the Federal Confidentiality of Alcohol and Drug Abuse Patient Records regulations: The Federal rules restrict any use of the information to criminally investigate or prosecute any alcohol or drug abuse patient.[facility] HospitalIn the event this information is protected by the Federal Confidentiality of Alcohol and Drug Abuse Patient Records regulations: The Federal rules restrict any use of the information to criminally investigate or prosecute any alcohol or drug abuse patient.[facility] HospitalIn the event this information is protected by the Federal Confidentiality of Alcohol and Drug Abuse Patient Records regulations: The Federal rules restrict any use of the information to criminally investigate or prosecute any alcohol or drug abuse patient.[facility] HospitalIn the event this information is protected by the Federal Confidentiality of Alcohol and Drug Abuse Patient Records regulations: The Federal rules restrict any use of the information to criminally investigate or prosecute any alcohol or drug abuse patient.[facility] HospitalIn the event this information is protected by the Federal Confidentiality of Alcohol and Drug Abuse Patient Records regulations: The Federal rules restrict any use of the information to criminally investigate or prosecute any alcohol or drug abuse patient.[facility] HospitalIn the event this information is protected by the Federal Confidentiality of Alcohol and Drug Abuse Patient Records regulations: The Federal rules restrict any use of the information to criminally investigate or prosecute any alcohol or drug abuse patient.[facility] Reason for Visit (unrecogniz ed section and content) Reason Comments Yearly Exam c/o foul vaginal odo r Reason Comments Results Reason Comments Mouth/Lip Problem Sore mouth-started a fter chemo x 1 week Reason Comments New Patient follow up from [facility] stay pt having a hard time walking Reason Comments New Patient Leg weakness x 2 mon ths. Reason Onset Date Comments Other 11/24/2024 Scheduling Reason Onset Date Comments Appointment 10/27/2024 Reason Comments New Patient ALS RELATIONS LIAISON REFERRAL DR Kelley MCDONNELL- PERIUMBILICAL , INCISIONAL HERNIA Specialty Diagnoses / Procedures Referred By Na wang Referred To Contact General Surgery Diagnoses Periumbilical pain Incisional hernia with obstruction, without gangrene Procedures [facility] ELECTIVE SURGERY Francesco Li MD [address] [address] Phone: tel: fax: Juan Brice MD [address] [facility] [address] [place] [address] Phone: tel: fax: Referral ID Status Reason Start Date Expiration Date Visits Re quested Visits Authorized [id number] Closed 11/21/2024 11/21/2025 1 1 Reason Onset [...] cancer Abnormal CT of the abdomen Procedures NH OFFICE/OUTPATIENT NEW HIGH MDM 60 MINUTES Eryn Lutz PA-C [address] [facility] [address] [place] [address] Phone: tel: fax: Aravind Carey MD [address] [facility] [address] [place] [address] Phone: tel: fax: Referral ID Status Reason Start Date Expiration Date Visits Requested Visits Authorized [id number] Pending Review Specialty Services Required 01/15/2025 01/15/2026 1 1 Care Teams (unrecognized sec tion and content) Development Professional Relationship Specialty Start Date End Date Stephie Velarde MD [address] [place] [address] PCP - General Internal Medicine 03/26/19 Development Professional Relationship Specialty Start Date End Date Stephie Velarde MD [address] [place] [address] PCP - General Internal Medicine 03/26/19 Development Professional Relationship Specialty Start Date End Date Stephie Velarde MD [address] [place] [address] PCP - General Internal Medicine 03/26/19 Team [...] Inactive Member Role Status Dates Dr. Stephie Velrade MD Primary Care Provider Active Dr. David Corral MD Attending Provider, Referring Pro vider Active Development Professional Relationship Specialty Start Date End Date Stephie Velarde MD [address] [place] [address] PCP - General Internal Medicine 03/26/19 Development Professional Relationship Specialty Start Date End Date Stephie Velarde MD [address] [place], [place] [address] PCP - General Internal Medicine 03/26/19 Team Status: Active Member Role Status Dates Dr. Stephie Velarde MD Primary Care Provider Active Dr. Gary Hussein MD Attending Provider Active Dr. David Corral MD Referring Provider Active Development Professional Relationship Specialty Start Date End Date Stephie Velarde MD [address] [place] [address] PCP - General Internal Medicine 03/26/19 Development Professional Relationship Specialty Start Date End Date Stephie Velarde MD [address] [place] [address] PCP - General Internal Medicine 03/26/19 Development Professional Relationship Specialty Start Date End Date Katie Velarde MD [address] [place] [address] PCP - General 09/07/20 Development Professional Relationship Specialty Start Date End Date Katie Velarde MD [address] [place] [address] PCP - General 09/07/20 Development Professional Relationship Specialty Start Date End Date Katie Velarde MD [address] [place] [address] PCP - General 09/07/20 Development Professional Relationship Specialty Start Date End Date Katie Velarde MD [address] [place] [address] PCP - General 09/07/20 Team Status: Active [...] End: September 10, 2024 Berna Pierson NP, RELATIONS LIAISON-C Attending Provider Active Start: September 10, 2024 [...] Provider Active Start: September 26, 2024 Dr. Victor Manuel Winkler DO Emergency [...] Active Start: September 29, 2024 Dr. Jose Frenandez MD Other Provider Active Start: September 29, [...] December 25, 2024 End: December 25, 2024 Development Professional Relationship Specialty Start Date End Date Katie Velarde MD [address] [place] [address] PCP - General 09/07/20 Development Professional Relationship Specialty Start Date End Date Katie Velarde MD [address] [place] [address] PCP - General 09/07/20 Development Professional Relationship Specialty Start Date End Date Katie Velarde MD [address] [place] [address] PCP - General 09/07/20 Development Professional Relationship Specialty Start Date End Date Katie Velarde MD [address] [place] [address] PCP - General 09/07/20 Team Status: Inactive [...] January 13, 2025 End: January 13, 2025 Development Professional Relationship Specialty Start Date End Date Katie Velarde MD [address] [place] [address] PCP - General 09/07/20 Development Professional Relationship Specialty Start Date End Date Katie Velarde MD [address] [place] [address] PCP - General 09/07/20 Aravind Carey MD [address] [place] [address] [place] [address] Consulting Physician Gynecologic Oncology 01/20/25 Development Professional Relationship Specialty Start Date End Date Katie Velarde MD [address] [address] [place] [address] PCP - General 09/07/20 Aravind Carey MD [address] [place] [address] [address] [place] [address] Consulting Physician Gynecologic Oncology 01/20/25 Development Professional Relationship Specialty Start Date End Date Katie Velarde MD [address] [facility] [address] [place] [address] PCP - General 09/07/20 Aravind Carey MD [address] [facility] [address] [place] [address] Consulting Physician Gynecologic Oncology 01/20/25 Development Professional Relationship Specialty Start Date End Date Katie Velarde MD [address] [facility] [address] [place] [address] PCP - General 09/07/20 Aravind Carey MD [address] [facility] [address] [place] [address] Consulting Physician Gynecologic Oncology 01/20/25 Team Status: [...] March 03, 2025 End: March 03, 2025 Development Professional Relationship Specialty Start Date End Date Katie Velarde MD [address] [facility] [address] [place] [address] PCP - General 09/07/20 Aravind Carey MD [address] [facility] [address] [place] [address] Consulting Physician Gynecologic Oncology 01/20/25 Team Status: [...] Inactive Member Role/Relationship Status Dates Berna Pierson RELATIONS LIAISON, RELATIONS LIAISON-C Attending Provider Active Start: March 18, 2025 [...] Active Start: March 18, 2025 Berna Pierson RELATIONS LIAISON, RELATIONS LIAISON-C Attending Provider Active Start: March 18, 2025 Team Status: Active Member Role/Relationship Status Dates Dr. Stephie Velarde MD Primary Care Provider Active Start: March 25, 2025 Dr. Stephie Velarde MD Referring Provider Active Start: March 25, 2025 Bernakeren Pierson RELATIONS LIAISON, RELATIONS LIAISON-C Attending Provider Active Start: March 25, 2025 [...] Active Start: April 08, 2025 Berna Pierson RELATIONS LIAISON, RELATIONS LIAISON-C Attending Provider Active Start: April 08, 2025 Team Status: Inactive Member Role/Relationship Status Dates Berna Pierson RELATIONS LIAISON, RELATIONS LIAISON-C Attending Provider Active Start: April 08, 2025 [...] Member Role/Relationship Status Dates Berna Pierson NP RELATIONS LIAISON-C Attending physician Active Start: March 18, 2025 [...] Member Role/Relationship Status Dates Berna Pierson NP RELATIONS LIAISON-C Attending physician Active Start: April 08, 2025 [...] Start: April 15, 2025 Berna Pierson NP RELATIONS LIAISON-C Attending physician Active Start: April 15, 2025 Team Status: Inactive Member Role/Relationship Status Dates Dr. Stephie Velarde MD Primary care physician Activ e Start: April 15, 2025 End: April 15, 2025 Dr. Stephie Velarde MD Referring Provider Active Start: April 15, 2025 End: April 15, 2025 Berna Pierson NP RELATIONS LIAISON-C Attending physician Active Start: April 15, 2025 [...] Member Role/Relationship Status Dates Berna Pierson NP, RELATIONS LIAISON-C Attending physician Active Start: March 18, 2025 [...] Member Role/Relationship Status Dates Berna Pierson NP, RELATIONS LIAISON-C Attending physician Active Start: April 08, 2025 [...] End: April 15, 2025 Berna Pierson NP RELATIONS LIAISON-C Attending physician Active Start: April 15, 2025 [...] Start: April 22, 2025 Berna Pierson NP, RELATIONS LIAISON-C Attending physician Active Start: April 22, 2025 [...] Active Start: May 06, 2025 Berna Pierson RELATIONS LIAISON, RELATIONS LIAISON-C Attending physician Active Start: May 06, 2025 [...] BE BASED ON THE PRIMARY CLINICAL RECORDS. [employer] [facility]. provides no warranty or guarantee of the accuracy or completeness of information in this document.
[2025-06-27] MEDS: 0.9% Normal Saline (250mL Bag) 250 ML 999 ML IV (22:43)
[2025-06-27] MEDS: Heparin Injection (Vial) 5,000 UNIT/ML VIAL 5000 UNIT SC (22:54)
[2025-06-28] VITALS (14 sets, daily range): BP systolic 105–129; BP diastolic 62–76; PULSE 71–89; RESP 15–16; TEMP 36.2–37.1; O2SAT 95–100; BMI 34.5
[2025-06-28 05:10] LABS: Hematocrit 26.4 % (37-47); Hemoglobin 8.5 g/dL (12.0-15.0); Immature Granulocytes Count 0.020 X10^3/uL (0.0-0.0); Mean Corp Hgb Conc 32.2 g/dL (32-36); Mean Corpuscular Volume 103.5 fL (81-99); Mean Platelet Vol. 12.2 fl (6.2-12.0); NRBC Flagged by Analyzer 0 % (0-5); POSITIVE DIFFERENTIAL YES; POSITIVE MORPHOLOGY YES; Platelet Count 183 K/mm3 (150-450); RBC Distribution Width CV 18.4 % (11.6-14.6); RBC Distribution Width SD 70.5 fl (35.1-43.9); Red Blood Count 2.55 M/mm3 (4.2-5.4); White Blood Count 7.0 K/mm3 (4.4-11.0)
[2025-06-28 05:16] LABS: Differential Indicated SCAN CRITERIA MET
[2025-06-28 05:31] LABS: AST(SGOT) 20 U/L (<=31); Alanine Aminotransfer ALT/SGPT 8 U/L (<=34); Albumin, Serum 3.3 g/dL (3.4-4.8); Alkaline Phosphatase 67 U/L (35-104); Anion Gap 16 (5-15); BUN 45 mg/dL (4-19); BUN/Creat Ratio 14.9 RATIO (10-20); Calcium,Total 10.0 mg/dL (7.6-11.0); Carbon Dioxide 23.2 mmol/L (21.0-32.0); Chloride 96 mmol/L (98-108); Estimated Creatinine Clearance 21.57 ml/min (50-250); Globulin 4.1 g/dL (2.2-4.2); Glucose 133 mg/dL (70-99); Potassium 4.4 mmol/L (3.3-5.1)
[2025-06-28 05:59] LABS: Differential Comment SCANNED
[2025-06-28 06:00] LABS: Anisocytosis RARE
[2025-06-28] MEDS: Budesonide Respules 0.5 MG/2 ML AMPUL.NEB. INHALATION ×2 (06:57→18:59)
[2025-06-28] MEDS: Albuterol 2.5 MG/3 ML VIAL.NEB. INHALATION (06:57)
[2025-06-28] MEDS: Petrolatum 33% Tube 1 APPLIC TOPICAL (09:40)
[2025-06-28] MEDS: Heparin Injection (Vial) 5,000 UNIT/ML VIAL 5000 UNIT SC ×2 (09:41→21:57)
[2025-06-28] MEDS: Metoprolol(XL)Succ 100 MG Tablet PO (09:42)
[2025-06-28] MEDS: buPROPion (SR) 150 MG Tablet.SA PO ×2 (09:42→22:00)
[2025-06-28] MEDS: Fluticasone 0.05% 1 SPRAY NASAL.SRY 2 SPRAY NASAL (10:18)
--- NOTE | 2025-06-28 13:41 | PN.HOSP_ITS ---
Subjective Subjective Doing well, no issues overnight. States that her right knee pain is improved with a Kenalog injection Objective Data Objective Data Vital Signs: Vital Signs Temp Pulse Resp BP Pulse Ox O2 Del Method 98.5 F 87 16 114/66 98 Room Air 06/28/25 09:35 06/28/25 09:42 06/28/25 09:35 06/28/25 09:35 06/28/25 09:35 06/28/25 09:35 Oxygen Delivery Method Room Air Weight: 220 lb 7.396 oz Body Mass Index (BMI) 34.5 Intake & Output: Intake and Output for Last 24 Hours 06/27/25 06/28/25 06/29/25 03:59 03:59 03:59 Intake Total 1250 / 1250 Balance 1250 / 1250 Lab / Micro Data 06/28/25 03:00 06/28/25 03:00 Labs: Laboratory Results - last 24 hr 06/27/25 15:20: WBC 7.9, RBC 2.67 L, Hgb 8.9 L, Hct 27.6 L, MCV 103.4 H, MCH 33.3 H, MCHC 32.2, RDW Std Deviation 68.7 H, RDW Coeff of Antonietta 18.4 H, Plt Count 183, MPV 12.0, Immature Gran % (Auto) 0.600, Neut % (Auto) 75.1 H, Lymph % (Auto) 8.6 L, [place] % (Auto) 15.3 H, Eos % (Auto) 0.1, Baso % (Auto) 0.3, Absolute Neuts (auto) 5.9, Absolute Lymphs (auto) 0.68 L, Nucleated RBC % 0, Differential Comment SCANNED, Polychromasia RARE, Ovalocytes RARE, Sodium 135, Potassium 4.0, Chloride 97 L, Carbon Dioxide 24.4, Anion Gap 14, BUN 38 H, C reatinine 2.75 H, Estim Creat Clear Calc 23.51 L, Est GFR (MDRD) Non-Af 18 L, BUN/Creatinine Ratio 13.9, Glucose 123 H, Uric Acid 10.1 H, Calcium 10.2, Phosphorus 3.7, Magnesium 1.9, Total Bilirubin 0.64, AST 23, ALT 6, Alkaline Phosphatase 63, Total Protein 7.4, Albumin 3.3 L, Globulin 4.1, Albumin/Globulin Ratio 0.8 L 06/27/25 16:59: Urine Color Yellow, Urine Clarity Clear, Urine pH 6.5, Ur Specific Finley 1.010, Urine Protein 100 H, Urine Glucose (UA) Normal, Urine Ketones Negative, Urine Occult Blood Negative, Urine Nitrite Negative, Urine Bilirubin Negative, Urine Urobilinogen Normal, Ur Leukocyte Esterase Negative, Urine RBC 0-5 SEEN, Urine WBC 0-5 SEEN, Ur Squamous Epith Cells 0-5 SEEN, Urine Bacteria RARE, Hyaline Casts 0-5 SEEN, Urine Mucus 0 SEEN 06/27/25 18:45: POC Glucose 101 06/27/25 22:47: POC Glucose 139 H 06/28/25 03:00: WBC 7.0, RBC 2.55 L, Hgb 8.5 L, Hct 26.4 L, MCV 103.5 H, MCH 33.3 H, MCHC 32.2, RDW Std Deviation 70.5 H, RDW Coeff of Antonietta 18.4 H, Plt Count 183, MPV 12.2 H, Immature Gran % (Auto) 0.300, Neut % (Auto) 88.6 H, Lymph % (Auto) 5.5 L, [place] % (Auto) 5.5, Eos % (Auto) 0.0, Baso % (Auto) 0.1, Absolute Neuts (auto) 6.2, Absolute Lymphs (auto) 0.38 L, Nucleated RBC % 0, Differential Comment SCANNED, Anisocytosis RARE, Sodium 135, Potassium 4.4, Chloride 96 L, Carbon Dioxide 23.2, Anion Gap 16 H, BUN 45 H, Creatinine 2.99 H, Estim Creat Clear Calc 21.57 L, Est GFR (MDRD) Non-Af 16 L, BUN/Creatinine Ratio 14.9, G lucose 133 H, Calcium 10.0, Total Bilirubin 0.51, AST 20, ALT 8, Alkaline Phosphatase 67, Total Protein 7.4, Albumin 3.3 L, Globulin 4.1, Albumin/Globulin Ratio 0.8 L 06/28/25 06:49: POC Glucose 130 H 06/28/25 12:08: POC Glucose 137 H Radiography Diagnostic Testing: Radiology Impression Knee X-Ray 06/27/25 15:09 IMPRESSION: Soft tissue swelling and moderate right knee effusions are new since prior study. No definitive acute Osseous abnormality. Severe tricompartmental osteoarthritis of the right knee. Reading Location: [facility] Chest X-Ray 06/27/25 15:35 IMPRESSION: Mild pulmonary vascular congestion and interstitial edema. Right lower lobe opacity likely atelectasis although early stages of pneumonia not excluded. Reading Location: [facility] Rhythm Strip Rhythm Strip: Sinus Rhythm Rate: 87 Ectopy: None Physical Exam Narrative General: Alert, Oriented x3, Cooperative, No apparent distress HEENT: Atraumatic, PERRLA, EOMI, Normocephalic Oral: Moist Mucosa Neck: Supple, No JVD Lungs: Diminished, Normal air movement, No rhonchi, No wheeze, No rales Cardiovascular: Regular rate, Regular Rhythm, Normal S1, Normal S2, No murmurs, right chest port Abdomen: Soft, Non Tender, Non-Distended, No Hepato-splenomegaly Extremities: No edema, Capillary Refill Less than 3 Seconds Skin: No rashes, No breakdown Musculoskeletal: Right knee is little bit more edematous than the left knee though no warmth Neurological: No focal neurological deficits, moves all extremities Psych/Mental Status: Normal Affect, Appropriate Assessment & Plan Assessment/Plan (1) Adult failure to thrive: PLAN: Plan 1. Debility and inability to complete ADLs ? PT/OT ? Will consult case management ? Some of this is likely related to the chemotherapy she has been on for her history of brain cancer as well as left ovarian cancer 2. Essential HTN/HLD ? Continue with her home blood pressure medications ? Will monitor and make adjustments as necessary ? Hydrochlorothiazide is being held because there is concern for gout flare 3. Anxiety/depression ? Stable ? Continue with her home medications 4. CKD 4 with anemia of chronic disease and iron deficiency ? Creatinine is at baseline will monitor ? Continue with iron supplementation 5. GERD ? Stable ? Continue with PPI DVT: Heparin Charges/Coding Visit Charges Inpatient E&M: 60604 Subs Hosp L2
[2025-06-28] MEDS: 0.9% Saline Lock 10 ML Syringe IV (13:58)
[2025-06-28] MEDS: Glucerna Shake 120 ML LIQUID PO (22:18)
[2025-06-29] VITALS (12 sets, daily range): BP systolic 112–138; BP diastolic 67–91; PULSE 71–87; RESP 15–18; TEMP 35.8–37.2; O2SAT 97–100; BMI 35.3
[2025-06-29] MEDS: Albuterol 2.5 MG/3 ML VIAL.NEB. INHALATION (07:03)
[2025-06-29 07:21] LABS: Hematocrit 23.5 % (37-47); Hemoglobin 7.8 g/dL (12.0-15.0); Immature Granulocytes Count 0.120 X10^3/uL (0.0-0.0); Mean Corp Hgb Conc 33.2 g/dL (32-36); Mean Corpuscular Volume 100.0 fL (81-99); Mean Platelet Vol. 11.2 fl (6.2-12.0); NRBC Flagged by Analyzer 0.2 % (0-5); POSITIVE DIFFERENTIAL YES; POSITIVE MORPHOLOGY YES; Platelet Count 204 K/mm3 (150-450); RBC Distribution Width CV 18.6 % (11.6-14.6); RBC Distribution Width SD 68.8 fl (35.1-43.9); Red Blood Count 2.35 M/mm3 (4.2-5.4); White Blood Count 10.6 K/mm3 (4.4-11.0)
[2025-06-29 07:27] LABS: Differential Indicated SCAN CRITERIA MET
--- NOTE | 2025-06-29 07:54 | PCM.PN.HOSP ---
Reason for Visit Chief Complaint: Weakness, debility, R knee pain and swelling. Subjective Subjective Pt states that she is feeling much better and is anxious to go home. Currently no knee pain. If not able to go to transitional care unit would like to go home with home health care. No alternatives if will be acceptable to her at this point in time. Objective Data Objective Data Vital Signs: Vital Signs Temp Pulse Resp BP Pulse Ox O2 Del Method 98.9 F 74 18 125/73 H 98 Room Air 06/29/25 06:17 06/29/25 07:19 06/29/25 07:19 06/29/25 06:17 06/29/25 07:20 06/29/25 07:20 Oxygen Delivery Method Room Air Weight: 102.1 kg Body Mass Index (BMI) 35.3 Intake & Output: Intake and Output for Last 24 Hours 06/27/25 06/28/25 06/29/25 23:59 23:59 23:59 Intake Total 1250 / 1250 1850 / 1850 100 / 100 Output Total 200 / 200 150 / 150 Balance 1250 / 1250 1650 / 1650 -50 / -50 Medical Nutrition Assessment Dietitian: Malnutrition Criteria Met Start: 06/28/25 17:56 Freq: Status: Active Protocol: Document 06/28/25 17:56 NIXON (Rec: 06/28/25 17:57 NIXON [id number]) Nutrition Malnutrition Evidence of Yes Malnutrition Exists Malnutrition (severe Chronic ): Evidenced By Suboptimal Energy Intake (Severe),Weight Loss (Severe) Clinical Problem Chronic Disease or Condition Related Malnutrition Etiology related to decreased ability to consume sufficient energy to meet estimated nutrient needs Signs/Symptoms as evidenced by significant weight loss per EMR wt hx: 21lb or 8.7% weight loss in less than 3 months based upon 241lb weight on 04/08/25 and 42lb or 16.0% weight loss in just over 3 months based upon 262lb weight on as well as hx of nausea with oral intakes meeting less than 75% of estimated nutrient needs for at least one month. Status Active Problem Recommendation Dietitian Recommend diet change to Cardiac: Calorie-Controlled Recommendations/ diet 1800kcal to better manage both blood sugars and Changes kidney function. Will order Glucerna 120mL 4x/day with medpass to promote oral intakes. Dietary preferences updated for the pt. Will continue to follow, monitor oral intakes and modify nutrition interventions as needed. Lab / Micro Data 06/29/25 07:05 06/29/25 17:18 Labs: Laboratory Results - last 24 hr 06/28/25 12:08: POC Glucose 137 H 06/28/25 16:45: POC Glucose 153 H 06/28/25 22:08: POC Glucose 145 H 06/29/25 06:09: POC Glucose 125 H 06/29/25 07:05: WBC 10.6, RBC 2.35 L, Hgb 7.8 L, Hct 23.5 L, MCV 100.0 H, MCH 33.2 H, MCHC 33.2, RDW Std Deviation 68.8 H, RDW Coeff of Antonietta 18.6 H, Plt Count 204, MPV 11.2, Immature Gran % (Auto) 1.100 H, Neut % (Auto) 86.6 H, Lymph % (Auto) 5.2 L, [place] % (Auto) 7.0, Eos % (Auto) 0.0, Baso % (Auto) 0.1, Absolute Neuts (auto) 9.2 H, Absolute Lymphs (auto) 0.55 L, Nucleated RBC % 0.2 Rhythm Strip Rhythm Strip: Sinus Rhythm Rate: 87 Ectopy: None Physical Exam Const alert, oriented x3, no apparent distress and well nourished; Negative for average body habitus Constitutional Narrative: Obese, -Samo[place] female, sitting up in bed, feels comfortable, nontoxic appearing HEENT head/scalp atraumatic and moist oral mucous membranes HEENT Narrative: Dentures in place, Mallampati 3, no thrush Head and Scalp: normocephalic Resp normal respiratory effort, no retractions, no use of accessory muscles and clear to auscultation bilaterally Auscultation: Negative for crackles, rhonchi or wheezes Cardio regular rate, regular rhythm, S1 normal heart sound, S2 normal heart sound, no murmurs, no rub, no gallops and no clicks GI normal to inspection, nondistended, normoactive bowel sounds, soft to palpation and non-tender Extremity no clubbing, cyanosis or edema Extremity Narrative: No joint effusion, no tenderness or warmth to the right knee, passive range of motion is full and pain-free, no pain with palpation Neuro moves all extremities and no focal motor deficits Speech: speech normal Psych affect normal Psych Narrative: Very pleasant, eye contact is normal, patient interacts appropriately Assessment & Plan Assessment/Plan (1) Effusion of right knee: (2) Acute gout: (3) Adult failure to thrive: PLAN: Plan Acute R Knee Pain 2/2 to Gout with severe tricompartmental B OA - Kenalog and lidocaine injection in ED - overall much better - Will give 1 dose of colchicine at 0.6 mg due to renal impairment and plan for allopurinol at d/c (renally dosed) - continue PT/OT - effusion resolved - PROM full and painless currently - p.o pain meds - Plan is for home with [facility] tomorrow RUI on CKD stage 4 - may be 2/2 NSAID use - sCr up to 4.00 on admission - baseline 2.6-2.9 - 1 L IVF given - repeat in am - pt was on toradol x 5 doses - Avoid nephrotoxins AGMA - 2/2 renal dysfunction - stable - repeat in am Acute Hyponatremia 2/2 worsening renal dysfunction - Stable - repeat in am Chronic Anemia 2/2 renal dysfunction - stable - no s/o bleeding - repeat lab in am - continue PO Fe Ovarian Cancer - progressive disease but no brain mets - follows with Dr. Corral - Taxol/Carboplatin/Avastin analogue - port placement DM-2 - on no therapy - suspect will have elevation with steroid injection - last A1c 5.0 CARLA -CPAP GERD - continue PPI Essential HTN - hold home HCTZ-> will d/c at discharge as likely not effective with her level of CKD - continue all other po antihypertensives COPD - continue home inhalers - no s/o exacerbation Depression/Anxiety - continue home meds Obesity - BMI 35.3 - recommend wgt loss - complicates treatment/prognosis and outcomes DVT prophylaxis - continue sq heparin CODE Status - Full code Charges/Coding Visit Charges Inpatient E&M: 39390 Subs Hosp L2
[2025-06-29 08:03] LABS: Anisocytosis 1+
[2025-06-29 08:10] LABS: Anion Gap 16 (5-15); BUN 70 mg/dL (4-19); BUN/Creat Ratio 17.6 RATIO (10-20); Calcium,Total 9.4 mg/dL (7.6-11.0); Carbon Dioxide 20.2 mmol/L (21.0-32.0); Chloride 90 mmol/L (98-108); Estimated Creatinine Clearance 16.30 ml/min (50-250); Glucose 120 mg/dL (70-99); Potassium 4.7 mmol/L (3.3-5.1)
[2025-06-29] MEDS: Fluticasone 0.05% 1 SPRAY NASAL.SRY 2 SPRAY NASAL (09:09)
[2025-06-29] MEDS: Metoprolol(XL)Succ 100 MG Tablet PO ×2 (09:09→21:43)
[2025-06-29] MEDS: buPROPion (SR) 150 MG Tablet.SA PO ×2 (09:09→21:43)
[2025-06-29] MEDS: Heparin Injection (Vial) 5,000 UNIT/ML VIAL 5000 UNIT SC ×2 (09:09→21:44)
--- NOTE | 2025-06-29 09:37 | CASEMGMT ---
PAIZ Met with patient to complete PAIZ form. PAIZ form and its content were verbally explained and patient's questions were answered to the best of my ability.? Patient voiced understanding and signed PAIZ form.? Patient provided a copy of signed PAIZ form and original placed in patient's chart.? Patient had no further questions. Malissa Jameson, Discharge Planning Asst
--- NOTE | 2025-06-29 10:21 | CASEMGMT ---
Discharge Planning A list of?SNF providers including quality and resource use data and consistent with the patient's preferred geographic region, medical needs, and insurance network was created in [employer] Guide.? This list was provided to the RN ANTOINE. Malissa Jameson, Discharge Planning Asst.
--- NOTE | 2025-06-29 11:06 | CASEMGMT ---
Addendum entered by Yolette James 06/29/25 16:04: Spoke with hospitalist, pt to have labs redrawn at 5pm. TC to Toya at [facility], she is aware pt may not dc today based on labs via . Addendum entered by Yolette James 06/29/25 13:15: Noted therapy sessions this date. Received tc from Toya at [facility], they can accept pt with SOC day after dc. MAKSIM SCHULTZ into pt room, pt states she did well with therapy. She states she even did steps. Pt states she feels safe to return home. Pt states she can now bend her knee and she wasn't able to do that when she came in. Pt is aware that HHC will start day after dc. Pt states she has an oncology appt tomorrow at 945 that she hopes to make. Updated hospitalist. Pt son arrived into room when MAKSIM SCHULTZ finished with conversation. Pt denies further needs. Addendum entered by Yolette James 06/29/25 12:04: [facility] is unable to accept pt for care. MAKSIM SCHULTZ into pt room, pt is aware of this. Pt states she would like to have [facility] then for therapy, she denies need for a list of other options. Pt has yet to work with therapy, MAKSIM SCHULTZ to follow. Pt states she can bend her knee very well and feels she will be able to go home. TC to [facility], left with referral for PT and OT. Will await decision to accept. Original Note: Noted PT and OT evals. MAKSIM SCHULTZ into pt room, pt lying in bed in no distress. Pt states her son lives with her in a second story home with 12 steps to get up. Pt states she has a walker, w/c and shower chair at home. Pt states her son thought it would be a good idea for her to go to a facility for a couple of weeks to build her strength back up. Pt states she has been to [facility] and she will not go back there or anywhere else except [facility]. Pt states Aqu[facility] banuelos'd her here at the hospital and he has seen her in her home. She states if she cannot go to [facility], then she would want [facility] and Aquiles back. Provided pt with a SNF list created by medardo minor but pt denies need to review. Pt states her son is POA for healthcare, requested that a copy of her documents be brought in to be scanned into the chart. Pt states she has not driven for some time and she sees . Pt has an appt this week. Pt is aware that if she were accepted to [facility], they may ask her to reschedule her appt until after her stay there. Pt states she would be agreeable to that if need be as she is in remission for the second time. Pt denies any further needs. Referral sent to [facility] to see if this is an option. Will await decision to accept.
[2025-06-29 14:33] LABS: Anion Gap 17 (5-15); BUN 76 mg/dL (4-19); BUN/Creat Ratio 18.6 RATIO (10-20); Calcium,Total 9.5 mg/dL (7.6-11.0); Carbon Dioxide 20.7 mmol/L (21.0-32.0); Chloride 91 mmol/L (98-108); Estimated Creatinine Clearance 15.98 ml/min (50-250); Glucose 129 mg/dL (70-99); Potassium 4.5 mmol/L (3.3-5.1)
[2025-06-29] MEDS: 0.9% Normal Saline (500mL Bag) 500 ML 999 ML IV (15:57)
[2025-06-29] MEDS: 0.9% Saline Lock 10 ML Syringe IV ×2 (15:57→21:48)
[2025-06-29 18:04] LABS: Anion Gap 19 (5-15); BUN 78 mg/dL (4-19); BUN/Creat Ratio 19.6 RATIO (10-20); Calcium,Total 9.2 mg/dL (7.6-11.0); Carbon Dioxide 18.3 mmol/L (21.0-32.0); Chloride 92 mmol/L (98-108); Estimated Creatinine Clearance 16.43 ml/min (50-250); Glucose 120 mg/dL (70-99); Potassium 4.6 mmol/L (3.3-5.1)
[2025-06-29] MEDS: Budesonide Respules 0.5 MG/2 ML AMPUL.NEB. INHALATION (19:16)
[2025-06-29] MEDS: Glucerna Shake 120 ML LIQUID PO (21:44)
[2025-06-30] VITALS (8 sets, daily range): BP systolic 119–133; BP diastolic 59–87; PULSE 74–89; RESP 16–18; TEMP 36.3–36.8; O2SAT 95–100; BMI 35.7
[2025-06-30] MEDS: Budesonide Respules 0.5 MG/2 ML AMPUL.NEB. INHALATION (04:52)
[2025-06-30 06:32] LABS: Hematocrit 25.0 % (37-47); Hemoglobin 8.2 g/dL (12.0-15.0); Immature Granulocytes Count 0.190 X10^3/uL (0.0-0.0); Mean Corp Hgb Conc 32.8 g/dL (32-36); Mean Corpuscular Volume 102.5 fL (81-99); Mean Platelet Vol. 11.7 fl (6.2-12.0); NRBC Flagged by Analyzer 0.3 % (0-5); POSITIVE MORPHOLOGY YES; Platelet Count 234 K/mm3 (150-450); RBC Distribution Width CV 18.7 % (11.6-14.6); RBC Distribution Width SD 70.4 fl (35.1-43.9); Red Blood Count 2.44 M/mm3 (4.2-5.4); White Blood Count 9.1 K/mm3 (4.4-11.0)
[2025-06-30 06:34] LABS: Differential Indicated SCAN CRITERIA MET
[2025-06-30 06:56] LABS: Anisocytosis 1+
[2025-06-30 07:07] LABS: Anion Gap 17 (5-15); BUN 82 mg/dL (4-19); BUN/Creat Ratio 21.4 RATIO (10-20); Calcium,Total 9.0 mg/dL (7.6-11.0); Carbon Dioxide 19.0 mmol/L (21.0-32.0); Chloride 94 mmol/L (98-108); Estimated Creatinine Clearance 17.18 ml/min (50-250); Glucose 104 mg/dL (70-99); Magnesium 2.0 mg/dL (1.5-2.2); Potassium 4.5 mmol/L (3.3-5.1)
[2025-06-30] MEDS: Metoprolol(XL)Succ 100 MG Tablet PO (08:41)
[2025-06-30] MEDS: buPROPion (SR) 150 MG Tablet.SA PO (08:41)
[2025-06-30] MEDS: Fluticasone 0.05% 1 SPRAY NASAL.SRY 2 SPRAY NASAL (08:42)
[2025-06-30] MEDS: Heparin Injection (Vial) 5,000 UNIT/ML VIAL 5000 UNIT SC (08:49)
--- NOTE | 2025-06-30 13:52 | DS.PCM_ITS ---
Providers Date of Admission: 06/27/25 Date of Discharge: 06/30/25 Primary Care Physician: Dr. Harmony Velarde MD Reason For Visit: ADULT FTT, RIGHT KNEE PAIN Diagnosis Discharge Diagnosis (1) Effusion of right knee: Status: Acute Code(s): M25.461 - Effusion, right knee (2) Acute gout: Status: Acute Code(s): M10.9 - Gout, unspecified (3) Adult failure to thrive: Status: Acute Code(s): R62.7 - Adult failure to thrive Plan Acute R Knee Pain 2/2 to Gout with severe tricompartmental B OA - Kenalog and lidocaine injection in ED - overall much better - Will give 1 dose of colchicine at 0.6 mg due to renal impairment and plan for allopurinol at d/c (renally dosed) - continue PT/OT - effusion resolved - PROM full and painless currently - p.o pain meds - Plan is for home with [facility] tomorrow RUI on CKD stage 4 - may be 2/2 NSAID use - sCr up to 4.00 on admission - baseline 2.6-2.9 - 1 L IVF given - repeat in am - pt was on toradol x 5 doses - Avoid nephrotoxins AGMA - 2/2 renal dysfunction - stable - repeat in am Acute Hyponatremia 2/2 worsening renal dysfunction - Stable - repeat in am Chronic Anemia 2/2 renal dysfunction - stable - no s/o bleeding - repeat lab in am - continue PO Fe Ovarian Cancer - progressive disease but no brain mets - follows with Dr. Corral - Taxol/Carboplatin/Avastin analogue - port placement DM-2 - on no therapy - suspect will have elevation with steroid injection - last A1c 5.0 CARLA -CPAP GERD - continue PPI Essential HTN - hold home HCTZ-> will d/c at discharge as likely not effective with her level of CKD - continue all other po antihypertensives COPD - continue home inhalers - no s/o exacerbation Depression/Anxiety - continue home meds Obesity - BMI 35.3 - recommend wgt loss - complicates treatment/prognosis and outcomes DVT prophylaxis - continue sq heparin CODE Status - Full code Medications at Discharge Home Medications blood pressure monitor #1 ea 08/16/21 Cpap Mask #1 ea 05/02/23 Handicap Placard #1 ea 05/05/24 fluticasone propionate 50 mcg/actuation nasal spray,suspension 2 spray intranasal DAILY #16 grams 07/28/24 bupropion HCl 150 mg tablet,12 hr sustained-release 150 mg PO BID #180 TABLETS 09/16/24 cholecalciferol (vitamin D3) 25 mcg (1,000 unit) capsule 25 mcg PO QDAY 12/25/24 ondansetron 8 mg disintegrating tablet 4 mg PO Q8H PRN PRN Nausea 12/25/24 metoprolol succinate 100 mg tablet,extended release 24 hr 100 mg PO BID #180 tabs 04/06/25 pantoprazole 40 mg tablet,delayed release 40 mg PO DAILY #90 tabs 04/06/25 hydralazine 100 mg tablet 100 mg PO TID 3 months #270 tabs 04/07/25 amlodipine 10 mg tablet 10 mg PO QDAY #90 tabs 04/08/25 magnesium oxide 400 mg PO QDAY #30 caps 04/08/25 acetaminophen 500 mg capsule 500 mg PO Q6H PRN fever or pain 04/16/25 budesonide-formoterol HFA 160 mcg-4.5 mcg/actuation aerosol inhaler (Symbicort) 1 inh inhalation BID 04/16/25 clonidine HCl 0.1 mg tablet 0.1 mg PO TID PRN hypertensive emergency #90 tabs 04/21/25 polysaccharide iron complex 150 mg iron capsule (Ferrex) 150 mg PO DAILY 90 days #90 caps 05/12/25 allopurinol 100 mg tablet 50 mg (1/2 x 100 mg) PO .q Mon and Thurs #15 tabs 06/30/25 Hospital Course Operations None Procedures - (Right knee joint injection/chest x-ray/knee x-rays) Summary of Care Provided Minutes Spent on Discharge: 37 Hospital Course: Patient is a 69-year-old female with a history of tricompartmental bilateral knee osteoarthritis who presented to the emergency department [facility] on 06/27/2025 with a chief complaint of worsening right knee pain and swelling that had slowly progressed over the last 48 hours prior to presentation. She had no fever but did report some decreased appetite and nausea. Given her ongoing and worsening knee pain she sought evaluation emergency department. In the emergency department she was unable to actively or passively move her knee well and arthrocentesis was attempted however no significant fluid was able to be aspirated. She ultimately was given injection with Kenalog and lidocaine by the emergency department physician. Vital signs on presentation were overtly unremarkable with a temperature of 97.9, heart rate 95, blood pressure was 114/71, heart rate was 14 and heart pulse ox 100% on room air. CBC showed chronic anemia that was stable but was otherwise unremarkable. Chemistry panel showed chronic stable renal dysfunction with a creatinine of 2.75. Given joint symptoms a uric acid was obtained and found to be markedly elevated at 10.1. Hepatic profile was unremarkable. Chest x-ray was suggestive of some mild pulmonary vascular congestion but given oxygen saturations exam this was felt to be most likely an overcall. Plain films of the right knee showed soft tissue swelling with moderate right knee effusion new since previous study and severe tricompartmental osteoarthritis. EKG was unremarkable. She was admitted to the medical surgical floor after injection and was given some Toradol which was discontinued due to elevation renal function. She has baseline CKD stage IV. She was evaluated by physical and Occupational Therapy. Originally she did extremely poorly with therapy and was only able to move about 2 feet however about 24 hours after her Kenalog/lidocaine injection kicked in her pain reduced significantly and she had full active and passive range of motion of the joint with improved mobility. Therapy thought at that point she was stable to go home with home health care. We did treat her with 1 dose of colchicine at 0.6 mg for acute gout. Reduced dose was given due to renal dysfunction at baseline. And, placed her on allopurinol 50 mg on Sunday and Sunday renally dosed for ongoing prevention after discharge. I do suspect that her pain was likely multifactorial with acute gout flare on chronic severe osteoarthritis of the joint. Prescription for the allopurinol was given at discharge. We also discontinued her HCTZ which may be exacerbating her symptoms and likely not all that effective for her renal dysfunction based on her creatinine clearance. Blood pressures remained stable during her hospitalization without the need for new or up titration of her medication. She was instructed to use a walker at home and will be followed by home health care for occupational physical therapy after discharge. She was discharged home in stable condition on 06/30/2025. Of asked her to follow-up with her primary care physician in 2 weeks. She may benefit from orthopedic surgery follow-up if she needs ongoing injections. Discharge diagnoses: Acute right knee pain secondary to acute gout on chronic severe tricompartmental osteoarthritis RUI-resolving CKD stage IV Anion gap metabolic acidosis secondary to renal dysfunction--> improving Acute hyponatremia secondary to worsening renal function-trending up Chronic anemia secondary renal dysfunction History of ovarian cancer with progressive disease DM-2 CARLA Essential hypertension GERD COPD Depression Anxiety Obesity Physical Exam Narrative Patient states her knee continues to feel well and she is anxious to go home today. Const alert, oriented x3, no apparent distress and well nourished; Negative for average body habitus Constitutional Narrative: Obese, -Citizen Of [place] female, sitting up in a chair at the bedside, eating breakfast, appears comfortable, nontoxic, watching television General Appearance: cooperative, comfortable, well kempt and well developed Exam Limitations: no limitations Nutritional Appearance: obese HEENT normocephalic, head/scalp atraumatic, hearing grossly normal bilaterally and moist oral mucous membranes HEENT Narrative: Dentures in place, appear mildly loose fitting, Mallampati 2-3, no thrush Resp normal respiratory effort, no retractions, no use of accessory muscles and clear to auscultation bilaterally Auscultation: Negative for crackles, rhonchi or wheezes Cardio regular rate, regular rhythm, S1 normal heart sound, S2 normal heart sound, no murmurs, no rub, no gallops and no clicks GI normal to inspection, nondistended, normoactive bowel sounds, soft to palpation and non-tender Extremity no clubbing, cyanosis or edema Extremity Narrative: No joint effusion, no tenderness or warmth to the right knee, passive range of motion is full and pain-free, no pain with palpation Skin Skin Narrative: Mediport right chest clean dry and intact Neuro moves all extremities and no focal motor deficits Speech: speech normal Psych affect normal Psych Narrative: Very pleasant, eye contact is normal, patient interacts appropriately Medical Records Data Medical Nutrition Assessment Dietitian: Malnutrition Criteria Met Start: 06/28/25 17:56 Freq: Status: Active Protocol: Document 06/28/25 17:56 NIXON (Rec: 06/28/25 17:57 SHANTELLE [id number]) Nutrition Malnutrition Evidence of Yes Malnutrition Exists Malnutrition (severe Chronic ): Evidenced By Suboptimal Energy Intake (Severe),Weight Loss (Severe) Clinical Problem Chronic Disease or Condition Related Malnutrition Etiology related to decreased ability to consume sufficient energy to meet estimated nutrient needs Signs/Symptoms as evidenced by significant weight loss per EMR wt hx: 21lb or 8.7% weight loss in less than 3 months based upon 241lb weight on 04/08/25 and 42lb or 16.0% weight loss in just over 3 months based upon 262lb weight on as well as hx of nausea with oral intakes meeting less than 75% of estimated nutrient needs for at least one month. Status Active Problem Recommendation Dietitian Recommend diet change to Cardiac: Calorie- Controlled Recommendations/ diet 1800kcal to better manage both blood sugars and Changes kidney function. Will order Glucerna 120mL 4x/day with medpass to promote oral intakes. Dietary preferences updated for the pt. Will continue to follow, monitor oral intakes and modify nutrition interventions as needed. Weight / BMI Weight Weight: 103.3 kg Body Mass Index (BMI) 35.7 ABG / Lab / Microbiology Data 06/30/25 06:00 06/30/25 06:00 Laboratory: Laboratory Results - last 24 hr 06/29/25 13:55: Sodium 128 L, Potassium 4.5, Chloride 91 L, Carbon Dioxide 20.7 L, Anion Gap 17 H, BUN 76 H, Creatinine 4.08 H, Estim Creat Clear Calc 15.98 L, Est GFR (MDRD) Non-Af 11 L, BUN/Creatinine Ratio 18.6, Glucose 129 H, Calcium 9.5 06/29/25 15:56: POC Glucose 122 H 06/29/25 17:18: Sodium 129 L, Potassium 4.6, Chloride 92 L, Carbon Dioxide 18.3 L, Anion Gap 19 H, BUN 78 H, Creatinine 3.97 H, Estim Creat Clear Calc 16.43 L, Est GFR (MDRD) Non-Af 12 L, BUN/Creatinine Ratio 19.6, Glucose 120 H, Calcium 9.2 06/29/25 21:39: POC Glucose 118 H 06/30/25 06:00: WBC 9.1, RBC 2.44 L, Hgb 8.2 L, Hct 25.0 L, MCV 102.5 H, MCH 33.6 H, MCHC 32.8, RDW Std Deviation 70.4 H, RDW Coeff of [place] 18.7 H, Plt Count 234, MPV 11.7, Immature Gran % (Auto) 2.100 H, Neut % (Auto) 78.7 H, Lymph % (Auto) 7.2 L, [place] % (Auto) 11.7 H, Eos % (Auto) 0.0, Baso % (Auto) 0.3, Absolute Neuts (auto) 7.2, Absolute Lymphs (auto) 0.66 L, Nucleated RBC % 0.3, Anisocytosis 1+, Sodium 130 L, Potassium 4.5, Chloride 94 L, Carbon Dioxide 19.0 L, Anion Gap 17 H, BUN 82 H, Creatinine 3.82 H, Estim Creat Clear Calc 17.18 L, Est GFR (MDRD) Non-Af 12 L, BUN/Creatinine Ratio 21.4 H, Glucose 104 H, Calcium 9.0, Phosphorus 3.0, Magnesium 2.0 06/30/25 06:07: POC Glucose 98 06/30/25 11:45: POC Glucose 103 D/C Instructions Discharge Activity: Return to Normal Activity and Use Walker Weight Bearing Status: Weight bearing as tolerated DC O2, CPAP, BIPAP Needs Home O2 Discharge instructions: No DC home with Oxygen: No Meaningful Use Info Meaningful Use Meaningful Use Diagnoses (Choose all that apply): None applicable Discharge Plan Admission Admit Date/Time: 06/27/25 17:22 Primary Reason for Your Visit: Right knee pain/inability walk twice weekly Attending Provider: Savannah Mcgraw Primary Care Provider: Harmony Velarde Consulting Providers: Stephani Garcia; Jose Fernandez Instructions Additional Instructions / Restrictions: 1. The allopurinol is only to be taken at 50 mg twice weekly on Sunday and due to your renal function. This should help prevent further gout flares 2. We stopped your hydrochlorothiazide as this can precipitate gout and it does not look like it was managing your blood pressure. Due to your renal dysfunction it is likely not all that effective based on the way it works. Please schedule close outpatient follow-up for reassessment of your blood pressure. Discharge Orders/Prescriptions Prescriptions: New allopurinol 100 mg tablet 50 mg PO .q Sun and Qty: 15 1RF Continued (DME) blood pressure monitor Kit See Rx Instructions .MEDSUPPLY Qty: 1 0RF Rx Instructions: Check blood pressure daily for hypertension I10 cholecalciferol (vitamin D3) 25 mcg (1,000 unit) capsule 25 mcg PO QDAY ondansetron 8 mg tablet,disintegrating 4 mg PO Q8H PRN PRN (Reason: Nausea) magnesium oxide 400 mg magnesium capsule 400 mg PO QDAY Qty: 30 1RF budesonide-formoterol [Symbicort] 160-4.5 mcg/actuation HFA aerosol inhaler 1 inh inhalation BID acetaminophen 500 mg capsule 500 mg PO Q6H PRN (Reason: fever or pain) clonidine HCl 0.1 mg tablet 0.1 mg PO TID PRN (Reason: hypertensive emergency) Qty: 90 0RF Rx Instructions: 3 times a day as needed for systolic blood pressure greater than 160 mmHg (DME) Cpap Mask See Rx Instructions .Route .MEDSUPPLY Qty: 1 0RF Rx Instructions: As directed (DME) Handicap Placard See Rx Instructions .ROUTE .MEDSUPPLY Qty: 1 0RF Rx Instructions: As directed, length of time 3 years fluticasone propionate 50 mcg/actuation spray,suspension 2 spray intranasal DAILY Qty: 16 3RF Rx Instructions: USE 2 SPRAYS INTRANASALLY DAILY bupropion HCl 150 mg tablet sustained-release 12 hr 150 mg PO BID Qty: 180 1RF metoprolol succinate 100 mg tablet extended release 24 hr 100 mg PO BID Qty: 180 1RF pantoprazole 40 mg tablet,delayed release (DR/EC) 40 mg PO DAILY Qty: 90 1RF hydralazine 100 mg tablet 100 mg PO TID 90 Days Qty: 270 0RF amlodipine 10 mg tablet 10 mg PO QDAY Qty: 90 3RF polysaccharide iron complex [Ferrex 150] 150 mg iron capsule 150 mg PO DAILY 90 Days Qty: 90 3RF Discontinued hydrochlorothiazide 25 mg tablet See Rx Instructions .ROUTE .COMPLEX Qty: 90 1RF Dose Instruction: TAKE 1 TABLET BY MOUTH DAILY Rx Instructions: TAKE 1 TABLET BY MOUTH DAILY Referrals / Follow Up: Harmony Velarde MD [Primary Care Provider, Internal Medicine] - Within 2 Weeks Disposition Disposition (needs filled in before D/C Order can be placed): Home Health Service Charges/Coding Visit Charges Inpatient E&M: 49862 Disch Hosp >30min
[2025-06-30] MEDS: 0.9% Saline Lock 10 ML Syringe IV (14:18)
--- NOTE | 2025-06-30 14:34 | CASEMGMT ---
[facility] this date.
--- NOTE | 2025-06-30 14:52 | PHA.DC_ITS ---
Pharmacy [facility] Counseling Pharmacy Service has performed discharge medication reconciliation and counseling for this patient. 1. ALLOPURINOL 50MG PO MONDAYS AND THURSDAYS 2. STOP HCTZ The patient's discharge medication list was reviewed for discrepancies and discrepancies were resolved. The patient was counseled on the following discharge medications and changes in medications for homegoing were reviewed. The Reason for Use, instructions for use, and potential side effects were reviewed for all new medications. The patient's questions regarding all of their medications were answered. The patient was able to verbally demonstrate an understanding of their discharge medications. Medications at Discharge Home Medications blood pressure monitor #1 ea 08/16/21 Cpap Mask #1 ea 05/02/23 Handicap Placard #1 ea 05/05/24 fluticasone propionate 50 mcg/actuation nasal spray,suspension 2 spray intranasal DAILY #16 grams 07/28/24 bupropion HCl 150 mg tablet,12 hr sustained-release 150 mg PO BID #180 TABLETS 09/16/24 cholecalciferol (vitamin D3) 25 mcg (1,000 unit) capsule 25 mcg PO QDAY 12/25/24 ondansetron 8 mg disintegrating tablet 4 mg PO Q8H PRN PRN Nausea 12/25/24 metoprolol succinate 100 mg tablet,extended release 24 hr 100 mg PO BID #180 tabs 04/06/25 pantoprazole 40 mg tablet,delayed release 40 mg PO DAILY #90 tabs 04/06/25 hydralazine 100 mg tablet 100 mg PO TID 3 months #270 tabs 04/07/25 amlodipine 10 mg tablet 10 mg PO QDAY #90 tabs 04/08/25 magnesium oxide 400 mg PO QDAY #30 caps 04/08/25 acetaminophen 500 mg capsule 500 mg PO Q6H PRN fever or pain 04/16/25 budesonide-formoterol HFA 160 mcg-4.5 mcg/actuation aerosol inhaler (Symbicort) 1 inh inhalation BID 04/16/25 clonidine HCl 0.1 mg tablet 0.1 mg PO TID PRN hypertensive emergency #90 tabs 04/21/25 polysaccharide iron complex 150 mg iron capsule (Ferrex) 150 mg PO DAILY 90 days #90 caps 05/12/25 allopurinol 100 mg tablet 50 mg (1/2 x 100 mg) PO .q Sun and Th #15 tabs 06/30/25
== END 2025-06-30 15:22 | disposition home health service (06) ==
LOC: ED 17:24 → MS3 17:55
PROVIDERS: Family Medicine; Admitting Provider Family Medicine; Emergency Provider Emergency Medicine; PCP Internal Medicine; Visit Provider Internal Medicine
DX: M10.9 Gout, unspecified (principal); N18.4 Chronic kidney disease, stage 4 (severe); C56.9 Malignant neoplasm of unspecified ovary; J44.9 Chronic obstructive pulmonary disease, unspecified; E11.22 Type 2 diabetes mellitus with diabetic chronic kidney disease; I12.9 Hypertensive chronic kidney disease with stage 1 through stage 4 chronic kidney disease, or unspecified chronic kidney disease; R62.7 Adult failure to thrive; M25.461 Effusion, right knee; E66.9 Obesity, unspecified; G47.33 Obstructive sleep apnea (adult) (pediatric); M62.81 Muscle weakness (generalized); Z87.891 Personal history of nicotine dependence; G31.84 Mild cognitive impairment of uncertain or unknown etiology; R53.81 Other malaise; Z79.51 Long term (current) use of inhaled steroids; F41.9 Anxiety disorder, unspecified; K21.9 Gastro-esophageal reflux disease without esophagitis; Z68.35 Body mass index [BMI] 35.0-35.9, adult; D63.1 Anemia in chronic kidney disease; E87.20 Acidosis, unspecified; E87.1 Hypo-osmolality and hyponatremia; F32.A Depression, unspecified; M17.10 Unilateral primary osteoarthritis, unspecified knee; Z79.899 Other long term (current) drug therapy; D50.9 Iron deficiency anemia, unspecified; N17.9 Acute kidney failure, unspecified
CPT/HCPCS: 20610; 36415; 36591; 71046; 73564; 80048; 80053; 81001; 82962; 83735; 84100; 84550; 85025; 93005; 94640; 94668; 96361; 96372; 96374; 96375; 96376; 97162; 97165; 97530; 97535; 97802; 99221; 99285; J2997; P9612; A4216; G0378; J2405

== ENCOUNTER → 2025-07-10 | Outpatient (CLI) | payer MEDICARE, MEDICAID, SELFPAY ==
--- NOTE | 2025-07-10 08:46 | US_ITS ---
EXAM: DIAG MAMM W/CAD, BILAT; BREAST LIMITED UNILATERAL; BILAT BRST BUDDY STAND ALONE 07/10/2025 CLINICAL HISTORY: F, Age 69 y/o , ABNORMAL PET/CT; RIGHT BREAST MASS; ABN PET TECHNIQUE: Procedure Code: BIDMWCADB; USBRSTLIMIT; BIBILATBRTOM Modality: MG; US Procedure: DIAG MAMM W/CAD, BILAT; BREAST LIMITED UNILATERAL; BILAT BRST BUDDY STAND ALONE. COMPARISON: Prior exam(s) dated mammogram 12/26/2023, 06/05/2022. FINDINGS: MAMMOGRAM: TISSUE DENSITY: There are scattered areas of fibroglandular density. Bilateral Breast Mammographic Findings: Follow-up examination performed for the abnormal findings seen on the outside PET-CT examination of 06/09/2025 (images were not available for review, however the report is reviewed) which reports abnormal uptake in the right nipple. On the present examination, there are no suspicious findings in the right nipple or right retroareolar region. Otherwise, there are no suspicious findings in the right breast. No significant masses, calcifications or other abnormalities are identified in the left breast. ULTRASOUND: Ultrasound performed of the right retroareolar region demonstrates no suspicious sonographic findings. There are no suspicious solid masses or abnormal cystic elements. US/Breast Limited Unilateral IMPRESSION: There are no suspicious mammographic or sonographic findings in the right nippl e or right retroareolar region. There is no evidence of malignancy in either breast. OVERALL FINAL ASSESSMENT BI-RADS 1: NEGATIVE RECOMMENDATION: Routine annual follow-up in 1 Year Additional Recommendation none A letter with findings and recommendations will be mailed to the patient. Reading Location: [id number]
--- NOTE | 2025-07-10 09:00 | BI_ITS ---
EXAM: DIAG MAMM W/CAD, BILAT; BREAST LIMITED UNILATERAL; BILAT BRST BUDDY STAND ALONE 07/10/2025 CLINICAL HISTORY: F, Age 69 y/o , ABNORMAL PET/CT; RIGHT BREAST MASS; ABN PET TECHNIQUE: Procedure Code: [id number]; USBRSTLIMIT; BIBILATBRTOM Modality: MG; US Procedure: DIAG MAMM W/CAD, BILAT; BREAST LIMITED UNILATERAL; BILAT BRST BUDDY STAND ALONE. COMPARISON: Prior exam(s) dated mammogram 12/26/2023, 06/05/2022. FINDINGS: MAMMOGRAM: TISSUE DENSITY: There are scattered areas of fibroglandular density. Bilateral Breast Mammographic Findings: Follow-up examination performed for the abnormal findings seen on the outside PET-CT examination of 06/09/2025 (images were not available for review, however the report is reviewed) which reports abnormal uptake in the right nipple. On the present examination, there are no suspicious findings in the right nipple or right retroareolar region. Otherwise, there are no suspicious findings in the right breast. No significant masses, calcifications or other abnormalities are identified in the left breast. ULTRASOUND: Ultrasound performed of the right retroareolar region demonstrates no suspicious sonographic findings. There are no suspicious solid masses or abnormal cystic elements. BI/DIAG MAMM W/CAD, BILAT IMPRESSION: There are no suspicious mammographic or sonographic findings in the right nippl e or right retroareolar region. There is no evidence of malignancy in either breast. OVERALL FINAL ASSESSMENT BI-RADS 1: NEGATIVE RECOMMENDATION: Routine annual follow-up in 1 Year Additional Recommendation none A letter with findings and recommendations will be mailed to the patient. Reading Location: [id number]
--- NOTE | 2025-07-10 09:29 | BI_ITS ---
EXAM: DIAG MAMM W/CAD, BILAT; BREAST LIMITED UNILATERAL; BILAT BRST BUDDY STAND ALONE 07/10/2025 CLINICAL HISTORY: F, Age 69 y/o , ABNORMAL PET/CT; RIGHT BREAST MASS; ABN PET TECHNIQUE: Procedure Code: BIDMWCADB; USBRSTLIMIT; BIBILATBRTOM Modality: MG; US Procedure: DIAG MAMM W/CAD, BILAT; BREAST LIMITED UNILATERAL; BILAT BRST BUDDY STAND ALONE. COMPARISON: Prior exam(s) dated mammogram 12/26/2023, 06/05/2022. FINDINGS: MAMMOGRAM: TISSUE DENSITY: There are scattered areas of fibroglandular density. Bilateral Breast Mammographic Findings: Follow-up examination performed for the abnormal findings seen on the outside PET-CT examination of 06/09/2025 (images were not available for review, however the report is reviewed) which reports abnormal uptake in the right nipple. On the present examination, there are no suspicious findings in the right nipple or right retroareolar region. Otherwise, there are no suspicious findings in the right breast. No significant masses, calcifications or other abnormalities are identified in the left breast. ULTRASOUND: Ultrasound performed of the right retroareolar region demonstrates no suspicious sonographic findings. There are no suspicious solid masses or abnormal cystic elements. BI/Bilat Brst Buddy Stand Alone IMPRESSION: There are no suspicious mammographic or sonographic findings in the right nippl e or right retroareolar region. There is no evidence of malignancy in either breast. OVERALL FINAL ASSESSMENT BI-RADS 1: NEGATIVE RECOMMENDATION: Routine annual follow-up in 1 Year Additional Recommendation none A letter with findings and recommendations will be mailed to the patient. Reading Location: [id number]
== END | disposition home or self-care (01) ==
LOC: OPBI 08:44
PROVIDERS: PCP Internal Medicine; Referring Provider Nurse Practitioner Family; Visit Provider Nurse Practitioner Family
DX: N63.10 Unspecified lump in the right breast, unspecified quadrant (principal); R92.8 Other abnormal and inconclusive findings on diagnostic imaging of breast
CPT/HCPCS: 76642; 77062; 77066; G0279